=== PATIENT | female | born 1955 | race Caucasian/White ===

== ENCOUNTER 2023-07-19 13:38 | Outpatient (OUT) | payer OTHER, MEDICAID, SELFPAY ==
--- NOTE | 2023-07-19 13:51 | XR_ITS ---
The [address] [address] Patient Name: FAYE ROSE MRN: [id number] date: 1955 Sex: F Assigned Patient Location: [facility] Current Patient Location: [facility] Accession/Order Number: [id number] Exam Date: 07/19/2023 13:53 Report Date: 07/19/2023 17:23 At the request of: MIKE GUILLEN Procedure: XR chest 2V EXAM: XR chest 2V HISTORY: Cough and wheezing. COMPARISON: Portable chest radiograph dated 11/06/2021. TECHNIQUE: PA and lateral views of the chest performed. FINDINGS: The trachea is midline. The heart size is normal. There is mild atheromatous calcification at the aortic arch. The hilar shadows are stable and unremarkable. The lung volumes are normal. The lung solis are clear. There is no pneumothorax. There are small endplate spurs and paravertebral ossifications at a few levels along the mid thoracic spine. There is a suture anchor within the left humeral head. XR/XR chest 2V IMPRESSION: There is no acute cardiopulmonary process. Electronically authenticated by: MG ENGEL Date: 07/19/2023 17:23
== END 2023-07-19 13:39 | disposition home or self-care (01) ==
LOC: RAD 13:43
PROVIDERS: PCP Family Medicine; Visit Provider Nurse Practitioner
DX: R05.9 Cough, unspecified (principal); R06.2 Wheezing
CPT/HCPCS: 71046

== ENCOUNTER 2023-09-25 13:30 | Outpatient (OUT) | payer OTHER, MEDICAID, SELFPAY ==
--- NOTE | 2023-09-25 13:36 | MM_ITS ---
Patient Name: FAYE ROSE MR#: [id number] : 1955 Exam Date: 09/25/2023 Ordering Doctor: MIKE GUILLEN . RADIOLOGY REPORT PROCEDURE: MM TOMOSYNTHESIS SCREENING BI COMPARISON: MG MAMM SCREEN KATE W CAD, 09/25/2020. MG MAMM SCREEN 3D KATE CAD, 09/13/2022. INDICATIONS: screening Calculator Name NCI Breast Cancer Risk Assessment Tool 5 Year Breast Cancer Risk 0.80% Lifetime Breast Cancer Risk 3.00% Personal Breast Cancer No Personal Ovarian Cancer No Treatments None Family Cancers Mother with bladder cancer at age 57; Father with liver cancer at age 77. LOCATION: [facility] BREAST COMPOSITION: Scattered areas fibroglandular density. FINDINGS: DIAGNOSTIC CATEGORY 2--BENIGN FINDING. NO CHANGE FROM COMPARISON. Scattered benign-appearing nodules are present. Scattered benign-appearing calcifications are present. Scattered benign-appearing lymph nodes are present. RIGHT BREAST: No significant suspicious finding. LEFT BREAST: No significant suspicious finding. RECOMMENDATIONS: ROUTINE MAMMOGRAM AND CLINICAL EVALUATION IN 12 MONTHS. PLEASE NOTE: A NORMAL MAMMOGRAM DOES NOT EXCLUDE THE POSSIBILITY OF BREAST CANCER. A CLINICALLY SUSPICIOUS PALPABLE LUMP SHOULD BE BIOPSIED. Dictated by: Hill Campoverde MD on 09/25/2023 at 14:31 Approved by: Hill Campoverde MD on 09/25/2023 at 14:32
--- NOTE | 2023-09-25 13:36 | XR_ITS ---
[address] [address] Patient Name: FAYE ROSE MRN: [id number] date: 1955 Sex: F Assigned Patient Location: [facility] Current Patient Location: [facility] Accession/Order Number: [id number] Exam Date: 09/25/2023 14:00 Report Date: 09/25/2023 16:50 At the request of: MIKE GUILLEN Procedure: XR DEXA axial skeleton EXAM: XR DEXA axial skeleton HISTORY: age-related osteoporosis without current pathological fx COMPARISON: None. TECHNIQUE: Routine DEXA scan lumbar spine and bilateral hips. FINDINGS: L2-L4: BMD 1.244 g/sq cm and T score 0.4. Left femoral neck: BMD 0.833 g/sq cm and T score -1.5. Left hip total: BMD 0.848 g/sq cm and T score -1.3. Right femoral neck: BMD 0.808 g/sq cm and T score -1.7. Right hip total: BMD 0.833 g/sq cm and T score -1.4. XR/XR DEXA axial skeleton IMPRESSION: Osteopenia. Electronically authenticated by: MG ENGEL Date: 09/25/2023 16:50
--- OUTSIDE RECORDS SUMMARY | 2023-09-25 13:50 | XMS_ITS | CCD ---
Author Name Unknown Address [address] [place] [address] Organization [facility] Care Team Providers Care Regional Service Manager Name Role Phone MD Aleksander Jimenez Primary Care Provider MD Balwinder Hankins Attending Provider Aleksander Jimenez Primary Care Unavailable Balwinder Hankins Attending Unavailable Balwinder Hankins Admitting Unavailable Tony, Aleksander Johnson Primary Care Unavailable Balwinder Hankins Attending Unavailable Balwinder Hankins Admitting Unavailable EVELYN, DR MADISON Ghotra Consulting Unavailabl e REINECK, DR MADISON Ghotra Admitting Unavailabl e JIMENEZ ., DR ALEKSANDER Johnson Primary Care Unavailable EVELYN, DR MADISON Ghotra Attending UnavailMARGE Garner Consulting Unavailable JIMENEZ ., DR ALEKSANDER Johnson Primary Care Unavailable JIMENEZ ., DR ALEKSANDER Johnson Admitting Unavailable JIMENEZ ., DR ALEKSANDER Johnson Attending Unavailable JIMENEZ ., DR ALEKSANDER Johnson Consulting Unavailable JIMENEZ ., DR ALEKSANDER Johnson Primary Care Unavailable JIMENEZ ., DR ALEKSANDER Johnson Admitting Unavailable JIMENEZ ., DR ALEKSANDER Johnson Attending Unavailable JIMENEZ ., DR ALEKSANDER Johnson Consulting Unavailable ZIEBER, DR MIRIAM Clark Consulting Unavailable JIMENEZ ., DR ALEKSANDER Johnson Primary Care Unavailable JIMENEZ ., DR ALEKSANDER Johnson Admitting Unavailable JIMENEZ ., DR ALEKSANDER Johnson Attending Unavailable JIMENEZ ., DR ALEKSANDER Johnson Consulting Unavailable JIMENEZ ., DR ALEKSANDER Johnson Admitting Unavailable JIMENEZ ., DR ALEKSANDER Johnson Attending Unavailable JIMENEZ ., DR ALEKSANDER Johnson Consulting Unavailable JIMENEZ ., DR ALEKSANDER Johnson Primary Care Unavailable MISC, DR SHOEMAKER Consulting Unavailable MISC, DR SHOEMAKER Admitting Unavailable MISC, DR SHOEMAKER Attending Unavailable JIMENEZ ., DR ALEKSANDER Johnson Primary Care Unavailable EVELYN, DR MADISON Ghotra Consulting Unavailabl e BARRYECK, DR MADISON Ghotra Admitting Unavailabl e JIMENEZ ., DR ALEKSANDER Johnson Primary Care Unavailable REINECK, DR MADISON Ghotra Attending Unavailyolanda NEAL, DR MIRIAM Clark Consulting Unavailable Tony KAYE, Aleksander Deras Primary Care Provider Az KAYE, Alida Unavailable Julee De Los Santos. Primary Care Physician Az KAYE, Alida Unavailable JOANNA, HARISH Attending Unavailable JOANNA, HARISH Referring Unavailable JIMENEZ, ALEKSANDER EDWARD Primary Care Unavailable JOANNA, HARISH Referring Unavailable JIMENEZ, ALEKSANDER [place] Primary Care Unavailable JOANNA, HARISH Attending Unavailable JIMENEZ, ALEKSANDER [place] Primary Care Unavailable JOANNA, HARISH Referring Unavailable JIMENEZ, ALEKSANDER [place] Primary Care Unavailable JOANNA, HARISH Referring Unavailable JIMENEZ, ALEKSANDER [place] Primary Care Unavailable JOANNA, HARISH Attending Unavailable JIMENEZ, ALEKSANDER [place] Primary Care Unavailable JOANNA, HARISH Referring Unavailable JULEE DE LOS SANTOS Primary Care Unavailable JOANNA, HARISH Attending Unavailable JIMENEZ, ALEKSANDER [place] Primary Care Unavailable JOANNA, HARISH Referring Unavailable JIMENEZ, ALEKSANDER [place] Primary Care Unavailable JOANNA, HARISH Referring Unavailable JIMENEZ, ALEKSANDER OVIDIO Primary Care Unavailable Silvia Cuevas Attending Unavailable Silvia Cuevas Attending Unavailable JEANINE VAZQUEZ Attending Unavailable Julee De Los Santos Attending Unavailable Julee De [place] Attending Unavailable Julee De Los [place] Attending Unavailable Julee De Los Santos Attending Unavailable Silvia Cuevas Attending Unavailable Silvia Cuevas Admitting Unavailable Silvia Cuevas Attending Unavailable Julee De [place] Admitting Unavailable Julee De Los Santos Attending Unavailable Julee De Los Santos Admitting Unavailable Julee De Los Santos Attending Unavailable Julee De Los Santos Attending Unavailable Allergies Allergy Classification Reported Allergen(s) Allergy Type Date of Onset Reaction(s) Facility (13 sources) Cefuroxime; Translations: [cefuroxime] Drug Allergy 2 Hives, Unknown (qualifier value) [facility] (1 source) Cefuroxime Drug Allergy 2 [facility] Medications Current Medications Medication Drug Class(es) Dates Sig (Normalized) Sig (Original) 0.25 MG, 0.5 MG Dose 3 ML semaglutide 0.68 MG/ML Pen Injector (1 source) Start: 09-15-2023 semaglutide 2 mg/3 mL (0.25 mg or 0.5 mg dose) subcutaneous solution 0.25 mg, SubCutaneous, qWeek, increase to 0.5 mg after 4 weeks, # 4 EA, Refills(s) 6, Pharmacy: [id number], 169, cm, 09/15/23 10:48:00 EST, Height/Length Dosing, 77, kg, 09/15/23 10:48:00 EST, Weight Dosing Start Date: 09/15/23 Status: Ordered acetaminophen 650 mg oral tablet (1 source) Start: 07-11-2023 take 650 mg by mouth every eight hours as needed for pain Tylenol 650 mg, Oral, q8hr, PRN as needed for pain, Refills(s) 0 Start Date: 07/11/23 Status: Ordered Albuterol (Eqv-ProAir HFA) 90 mcg/inh inhalation aerosol (1 source) Start: 07-19-2023 take 2 puff(s) by inhalation every six hours Albuterol (Eqv-ProAir HFA) 90 mcg/inh inhalation aerosol 2 puff(s), Inhalation, q6hr, 8.5 gm, Refill(s) 0, [id number], 169, cm, 07/19/23 13:15:00 EST, Height/Length Dosing, 75.1, kg, 07/19/23 13:15:00 EST, Weight Dosing Start Date: 07/19/23 Status: Ordered atorvastatin 20 mg oral tablet (10 sources) HMG-CoA Reductase Inhibitor Start: 08-02-2023 take 1 tablet by mouth once daily atorvastatin 20 mg Tab See Instructions, TAKE 1 TABLET BY MOUTH ONCE DAILY, # 90 tab(s), Refills(s) 0, Pharmacy: [id number], 169, cm, 07/19/23 13:15:00 EST, Height/Length Dosing, 75.1, kg, 07/19/23 13:15:00 EST, Weight Dosing Start Date: 08/02/23 Status: Ordered Start: 11-08-2022 take 1 tablet by romi th at bedtime atorvastatin (LIPITOR) 20 mg tablet 1 PO at bedtime 0 11/08/2022 Active Start: 11-23-2018 take 20 mg by mouth once daily at bedtime Atorvastatin Active 20 MG PO Daily at bedtime November 22, 2018 11:00pm Comment on above: 1 PO at bedtime baclofen 10 mg oral tablet (3 sources) gamma-Aminobutyric Acid-ergic Agonist Start: 05-02-2018 End: 11-09-2022 take 10 mg by mouth once daily Baclofen Active 10 MG PO Daily November 22, 2018 11:00pm Comment on above: Take 10 mg by mouth daily at bedtime. folic acid 2 mg oral capsule (13 sources) Start: 09-11-2023 take 2 mg by mouth once daily folic acid 2 mg, Oral, Daily, Refills(s) 0 Start Date: 09/11/23 Status: Ordered Start: 02-08-2023 End: 05-10-2023 take 2 tablets by mouth once daily folic acid 1 mg tablet Take 2 tablets by mouth once daily. 60 tablet 3 05/10/2023 Active Start: 11-09-2022 End: 02-08-2023 take 1 tablet by mouth once daily folic acid 1 mg Tab 1 mg = 1 tab(s), Oral, Daily, Refills(s) 0 Start Date: 01/09/23 Status: Ordered Start: 11-23-2018 take 1 mg by mouth o nce daily in the morning Folic Acid Active 1 MG PO Every morning November 22, 2018 11:00pm End: 11-09-2022 FOLIC ACID ORAL Take by mout h once daily. 0 11/09/2022 Discontinued Comment on above: Take 1 tablet by romi th once daily. Take by mouth once d aily. Take 2 tablets by mo uth once daily. glipiZIDE 5 mg oral tablet (3 sources) Sulfonylurea Start: 11-23-2018 Glipizide Active 2.5 MG PO As Directed November 22, 2018 11:00pm Start: 04-26-2018 End: 11-09-2022 take 1 tablet by mouth once daily in the morning glipiZIDE (GLUCOTROL) 5 mg tablet Take 5 mg by mouth every morning. 5 04/26/2018 11/09/2022 Discontinued (Course of therapy completed) Comment on above: Take 5 mg by mouth e very morning. Handicap placard (1 source) Start: 12-04-20 23 Handicap placard Handicap placard, See Instructions, 1 EA, 0, Duration 5 years, Supply Start Date: 06/26/23 Status: Ordered levoFLOXacin 500 mg oral tablet (1 source) Quinolone Antimicrobial Start: 09-11-19 End: 09-21-19 take 1 tablet by mouth every twenty-four hours levofloxacin 500 mg Tab 500 mg = 1 tab(s), Oral, q24hr, X 10 day(s), # 10 tab(s), Refills(s) 0, Pharmacy: [id number], 169, cm, 09/11/23 11:22:00 EST, Height/Length Dosing, 75.9, kg, 09/11/23 11:20:00 EST, Weight Dosing Start Date: 09/11/23 Stop Date: 09/21/23 Status: Ordered metFORMIN hydrochloride 850 mg oral tablet (10 sources) Biguanide Start: 04-25-20 take 1 tablet by mouth twice daily metformin 850 mg Tab See Instructions, TAKE 1 TABLET BY MOUTH TWICE DAILY, # 180 tab(s), Refills(s) 0, Pharmacy: [id number], 170.2, cm, 04/10/23 13:28:00 EDT, Height/Length Dosing, 77.2, kg, 04/10/23 13:28:00 EDT, Weight Dosing Start Date: 04/25/23 Status: Ordered Start: 12-07-2022 take 1 tablet by romi th twice daily metformin 850 mg Tab 850 mg = 1 tab(s), Oral, BID, # 180 tab(s), Refills(s) 0, Pharmacy: [id number] Start Date: 12/07/22 Status: Ordered Start: 11-23-2018 take 850 mg by mouth twice hamzah ly Metformin Active 850 MG PO Twice daily November 22, 2018 11:00pm Start: 04-26-2018 take 1 tablet by romi th once daily at breakfast metFORMIN (GLUCOPHAGE) 850 mg tablet TAKE 1 TABLET BY MOUTH DAILY WITH BREAKFAST & supper 11 04/26/2018 Active Comment on above: TAKE 1 TABLET BY ROMI TH DAILY WITH BREAKFAST & supper methotrexate 2.5 mg oral tablet (13 sources) Folate Analog Metabolic Inhibitor Start: 01-09-2023 methotrexate 2.5 mg Tab 20 mg = 8 tab(s), Oral, q7day, # 4 tab(s), Refills(s) 0 Start Date: 01/09/23 Status: Ordered Start: 11-09-2022 End: 05-10-2023 take 8 tablets by mouth every week methotrexate 2.5 mg tablet Take 8 tablets by mouth one time a week. 32 tablet 3 05/10/2023 Active Start: 06-24-2022 take 16 mg by mouth every week Methotrexate Sodium Active 16 MG PO every week June 24, 2022 12:00am End: 11-09-2022 take 1 tablet by mouth once methotrexate 2.5 mg tablet Take 2.5 mg by mouth one time only. Pt takes 6 tablets by mouth every Monday 0 11/09/2022 Discontinued Comment on above: Take 8 tablets by mo uth one time a week. Take 2.5 mg by mouth one time only. Pt takes 6 tablets by mouth every Monday predniSONE 5 mg oral tablet (10 sources) Start: 07-11-2023 take 5 mg by mouth once daily as needed for pain predniSONE 5 mg, Oral, Daily, PRN Breakthrough Pain, Refills(s) 0 Start Date: 07/11/23 Status: Ordered Start: 06-24-2022 End: 11-09-2022 predniSONE (DELTASONE) 5 mg tablet Take 1 tablet by mouth as needed. Take 1 tablet by mouth daily as needed 30 tablet 3 11/09/2022 Active Comment on above: Take 1 tablet by romi as needed. Take 1 tablet by mouth daily as needed Prednisone Active 5 MG PO As Directed June 24, 2022 12:00am sertraline 50 mg oral tablet (3 sources) Serotonin Reuptake Inhibitor Start: 04-26-2018 End: 11-09-2022 take 50 mg by mouth once daily in the morning Sertraline Active 50 MG PO Every morning November 22, 2018 11:00pm Comment on above: Take 50 mg by mouth once daily. Completed/Discontinued Medications Medication Drug Class(es) Dates Sig (Normalized) Sig (Original) aspirin 81 mg chewable tablet (1 source) Platelet Aggregation Inhibitor, Nonsteroidal Anti-inflammatory Drug Start: 07-27-2010 End: 11-09-2022 take 1 tablet by mouth once daily aspirin 81 mg ORAL chewable tablet take one tablet daily 0 07/27/2010 11/09/2022 Discontinued (Course of therapy completed) Comment on above: take one tablet rodrigue y cholecalciferol 0.05 mg oral capsule (1 source) Vitamin D End: 11-09-2022 Cholecalciferol, Vitamin D3, 50 mcg (2,000 unit) cap Take by mouth once daily. 0 11/09/2022 Discontinued (Course of therapy completed) Comment on above: Take by mouth once d aily. dicyclomine hydrochloride 20 mg oral tablet (2 sources) Anticholinergic Start: 11-23-2018 End: 06-24-2022 take 20 mg by mouth four times daily Dicyclomine Discontinued 20 MG PO Four times daily November 22, 2018 11:00pm June 24, 2022 11:10am DULoxetine 20 mg delayed release oral capsule (3 sources) Serotonin and Norepinephrine Reuptake Inhibitor Start: 05-02-2018 End: 11-09-2022 Duloxetine Discontinued November 22, 2018 11:00pm June 24, 2022 11:10am Comment on above: Take 20 mg by mouth every morning. naproxen 500 mg oral tablet (1 source) Nonsteroidal Anti-inflammatory Drug Start: 05-10-2018 End: 11-09-2022 take 1 tablet by mouth every twelve hours as needed naproxen (NAPROSYN) 500 mg tablet Take 1 tablet by mouth twice daily as needed (for pain). for pain. Take with food. 60 tablet 1 05/10/2018 11/09/2022 Discontinued (Course of therapy completed) Comment on above: Take 1 tablet by romi th twice daily as needed (for pain). for pain. Take with food. ondansetron 4 mg disintegrating oral tablet (2 sources) Serotonin-3 Receptor Antagonist Start: 11-23-2018 End: 06-24-2022 take 4 mg by mouth every six hours Ondansetron Discontinued 4 MG PO Q6H 7 November 22, 2018 11:00pm June 24, 2022 11:13am PARoxetine hydrochloride 10 mg oral tablet (1 source) Serotonin Reuptake Inhibitor Start: 07-27-2010 End: 11-09-2022 PARoxetine (PAXIL) 10 mg tablet Take one(1) tablet daily. 90 Tab 0 07/27/2010 11/09/2022 Discontinued (Course of therapy completed) Comment on above: Take one(1) tablet d aily. 0.25 mg, 0.5 mg dose 1.5 ml semaglutide 1.34 mg/ml pen injector (9 sources) Start: 09-29-2022 OZEMPIC 0.25 mg or 0.5 mg(2 mg/1.5 mL) pen INJECT 0.5 mg SUBCUTANEOUSLY EVERY WEEK 0 09/29/2022 Active Start: 06-24-2022 Semaglutide (O zempic) 0.25 mg or 0.5 mg(2 mg/1.5 mL) pen injector Active 0.5 MG SUBCUT every week June 24, 2022 12:00am Comment on above: INJECT 0.5 mg SUBCUT ANEOUSLY EVERY WEEK Problems Active Problems Problem Classification Problem Date Documented Date Episodic/Chronic Abdominal pain (2 sources) Abdominal pain; Translations: [Unspecified abdominal pain] 11-23-2018 Episodic Anxiety disorders (1 source) Mixed anxiety and depressive disorder 07-11-2023 Chronic Asthma (1 source) Unspecified asthma, uncomplicated; Translations: [UNSPECIFIED ASTHMA UNCOMPLICATED] Onset: 11-29-2021 Chronic Blindness and vision defects (4 sources) Blind right eye, normal vision left eye; Translations: [Visual impairment] Onset: 01-09-2023 01-09-2023 Chronic 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 Cataract (1 source) Unspecified cataract; Translations: [Unspecified cataract] Onset: 07-07-2022 Chronic Diabetes mellitus with complications (8 sources) Type 2 diabetes mellitus with diabetic polyneuropathy; Translations: [Type 2 diabetes mellitus with hyperglycemia] Onset: 12-28-2021 Chronic Diabetes mellitus without complication (8 sources) Type 2 diabetes mellitus without complications; Translations: [Type 2 diabetes mellitus without complication] Onset: 11-29-2021 Chronic Disorders of lipid metabolism (9 sources) Pure hypercholesterolemia, unspecified; Translations: [Hyperlipidemia] Onset: 07-27-2010 07-27-2010 Chronic Headache; including migraine (2 sources) Migraine 12-02-2022 Chronic Nausea and vomiting (2 sources) Nausea and vomiting; Translations: [Nausea with vomiting, unspecified] 11-23-2018 Episodic Nutritional deficiencies (2 sources) Vitamin D deficiency 12-02-2022 Chronic Osteoarthritis (6 sources) Arthritis; Translations: [Unspecified osteoarthritis, unspecified site] Onset: 07-27-2010 07-27-2010 Chronic Osteoporosis (2 sources) Osteoporosis 12-02-2022 Chronic Other aftercare (2 sources) Patient encounter status; Translations: [Other superintendent [employer] (current) drug therapy] 02-08-2023 Episodic Other and unspecified benign neoplasm (2 sources) Polyp of colon; Translations: [Polyp of colon] 01-09-2023 Episodic Other connective tissue disease (2 sources) Fibromyalgia 12-02-2022 Episodic Other lower respiratory disease (1 source) Cough 07-19-2023 Episodic Other lower respiratory disease (1 source) Wheezing 07-11-2023 Episodic Other nervous system disorders (2 sources) Carpal tunnel syndrome 12-02-2022 Chronic Other non-traumatic joint disorders (2 sources) Disorder of shoulder 12-02-2022 Episodic Other nutritional; endocrine; and metabolic disorders (1 source) Obesity, unspecified; Translations: [OBESITY UNSPECIFIED] Onset: 10-01-2022 Chronic Other screening for suspected conditions (not mental disorders or infectious disease) (4 sources) Encounter for screening mammogram for malignant neoplasm of breast; Translations: [ENC SCR MAMMO MALIG NEOPLASM BREAST] Onset: 09-13-2022 Episodic Other upper respiratory disease (1 source) Nasal congestion 07-19-2023 Episodic Other upper respiratory infections (1 source) Sinusitis 07-11-2023 Chronic Residual codes; unclassified (1 source) Family history of malignant neoplasm of bladder; Translations: [FAM HX MALIGNANT NEOPLASM BLADDER] Onset: 09-17-2022 Episodic Residual codes; unclassified (1 source) Family history of malignant neoplasm of other organs or systems; Translations: [FAM HX MALIG NEOPLASM OTH ORGN/SYS] Onset: 09-17-2022 Episodic Retinal detachments; defects; vascular occlusion; and retinopathy (8 sources) Degenerative disorder of macula ; Translations: [Unspecified macular degeneration] Onset: 07-27-2010 07-27-2010 Chronic Rheumatoid arthritis and related disease (17 sources) Rheumatoid arthritis, unspecified; Translations: [Rheumatoid arthritis with rheumatoid factor of multiple sites without organ or systems involvement] Onset: 05-29-2018 Chronic Spondylosis; intervertebral disc disorders; other back problems (5 sources) Degenerative lumbar spinal stenosis; Translations: [Thoracic back pain] Onset: 05-10-2023 12-02-2022 Episodic Unclassified (1 source) History of surgical procedure on mouth 04-10-2023 Unclassified (1 source) Patient encounter status 09-15-2023 Past or Other Problems Problem Classification Problem Date Documented Date Episodic/Chronic Allergic reactions (1 source) Generalized skin eruption due to drugs and medicaments taken internally; Translations: [GEN SKN ERUPT D/T RX TAKE INTERNALY] Onset: 11-29-2021 Episodic Chronic obstructive pulmonary disease and bronchiectasis (6 sources) Bronchitis; Translations: [Bronchitis, not specified as acute or chronic] Onset: 07-27-2010 07-27-2010 Episodic E Codes: Adverse effects of medical drugs (1 source) Adverse effect of cephalosporins and other beta-lactam antibiotics, initial encounter; Translations: [ADVERS EFF CEPHALOSPOR OTH JOSE CRUZ INIT] Onset: 11-29-2021 Episodic Nonspecific chest pain (4 sources) Chest pain, unspecified; Translations: [Other chest pain] Onset: 11-06-2021 Episodic Other aftercare (2 sources) Other detention (current) drug therapy; Translations: [OTH [facility] CURRENT DRUG THERAPY] Onset: 02-22-2022 Episodic Other aftercare (1 source) terminal carman (current) use of oral hypoglycemic drugs; Translations: [[facility] USE ORAL HYPOGLYCEMIC DX] Onset: 11-29-2021 Episodic Other circulatory disease (1 source) Personal history of transient ischemic attack (TIA), and cerebral infarction without residual deficits; Translations: [PERS HX TIA AND CI NO RESID DEFICIT] Onset: 11-29-2021 Episodic Other lower respiratory disease (1 source) Personal history of pneumonia (recurrent); Translations: [PERSONAL HX OF PNEUMONIA RECURRENT] Onset: 11-29-2021 Episodic Other skin disorders (3 sources) Rash and other nonspecific skin eruption; Translations: [RASH OTH NONSPECIFIC SKIN ERUPTION] Onset: 11-02-2021 Episodic Residual codes; unclassified (6 sources) Tobacco user; Translations: [Tobacco use] Onset: 07-27-2010 07-27-2010 Episodic Urinary tract infections (6 sources) Urinary tract infectious disease; Translations: [Urinary tract infection, site not specified] Onset: 07-27-2010 07-27-2010 Episodic Results Test Name Value Interpretation Reference Range Facil ity Family Medicine Office/Clini c Noteon 09-19-2023 Family Medicine Office/Clinic Note Chief Complaint Subsequent [facility] Visit Review of Systems PHQ Score Initial Depression Screen Score: 0 SCORE Physical Exam Vitals & Measurements HR: 80(Peripheral) BP: 132/80 SpO2: 96% HT: 169 cm HT: 67 in WT: 77 kg WT: 169.4 lb BMI: 26.96 Assessment/Plan 1. Annual visit for general adult medical examination without abnormal findings (Z00.00: Encounter for general adult medical examination without abnormal findings) The patient was given a customized and personalized print out of all the current AHRQ USPSTF?s recommendations for preventative services and all current CDC recommended immunizations, relevant risk recommendations and the following patient brochures were given. Reviewed Medicare preventative services checklist. CDC-Falls Prevention and home safety screening reviewed. Patient denies any falls in last 12 months, voices no worry about falling, exhibits no problems with sitting, standing, or ambulation. Pt voices understanding with keeping walk way area free of clutter to prevent tripping and/or falling. [place] Advance Directives reviewed, on file at paleologist office. Patient denies any problems with ADL?s and Instrumental ADL?s. Cognitive screening completed with memory and clock face drawing. Immunization Record reviewed with the patient. COVID vaccines have been administered, immunization record is up to date. Allergies and medications reviewed and up to date. Patient denies concerns with taking medication as prescribed, reviewed OTC medications with patient, medication list up to date. Blood tests were reviewed: Discussed what tests need to be updated. Labs were ordered, will have completed prior to next PCP visit. Will have labs completed with [facility]. Colonoscopy last completed in 2020 per patient. DEXA scan ordered and faxed to [facility]. Mammogram is due and order at [facility], patient to schedule with [facility]. Reviewed pain symptoms with patient: patient denies pain symptoms Reviewed all outside providers that patient follows. Last visit summary notes available in chart and/or have been requested. Follow up scheduled, follow up after a1c in September 2023 AWV has been scheduled, TBD 2. Other problems related to lifestyle (Z72.89: Other problems related to lifestyle) Information provided and discussed with CDC recommendation that everyone born from 6292[birth year]174 get tested for Hepatitis C. This is also referred to as baby boomers and are 5 times more likely to be at risk. Transmission of Hepatitis C was at its highest. Medicare does cover a once in a lifetime testing if a patient is non-symptomatic. Blood work has been ordered, will review results with PCP. Patient to complete in September with A1c. 3. Anxiety and depression (F41.9: Anxiety disorder, unspecified) Patient is not prescribed medication. Follows up with PCP with medication management and symptom control. PHQ-9 risk assessment completed with negative findings. Total risk score 0. Patient denies any suicidal ideations at this time. Reviewed additional signs/symptoms to monitor for and report to provider. ARMANI-7 completed with negative findings. Risk score of 0. Following up with PCP as directed with symptom and medication management. Reviewed concerns that needs to be discussed during office visits such as: changes with worrying too much and it is interfering with your work, relationships and/or other parts of your life. Your fear, worry or anxiety is upsetting to you and difficult to control. If additional trouble with depression is noticeable contact your provider. Patient does voice understanding. 4. Type 2 diabetes mellitus (E11.9: Type 2 diabetes mellitus without complications) Patient is compliant on current DM medications: Metformin. DM stoplight handout reviewed with s/s to monitor for and report to PCP. Discussed ADA dietary recommendations with low carbs and reduce sugar intake. Patient encouraged to increase daily physical activity, adequate water intake and maintain a healthy weight. Pt follows up with PCP with yearly DM foot checks, last completed 09/15/2023. Reminded patient to perform at home foot checks to prevent future complications, wash with soap and water, apply lotion to bilateral feet and in-between toes to prevent dryness and/or cracking. Wear proper fitting shoes and loose fitting socks and/or hose. Follows up with yearly DM eye exams, last visit notes available in chart for review. A1c 6.1 on last labs. 5. Hypercholesterolemia (E78.00: Pure hypercholesterolemia, unspecified) Reviewed healthy lifestyle with low fat diet and exercise regimen. When you are overweight our body produces more lipids. Risk also increases with family history of hyperlipidemia and with monitoring alcohol use and avoid smoking. Patient voices understanding with importance of monitoring dietary intake to reduce risk factors associated with CVA. Taking atorvastatin medication daily as directed. Will continue to follow up with office visits with updated labs as directed. Chol. 199, Tri (more content not included)... Normal [facility] Comment on above: Result Comment: Elec tronically Signed By: Silvia Diaz\.br\Date and Time Signed: 09/19/23 13:00 EST\.br\Electronically Co-Signed By: Dennis Grant.br\Date and Time Co-Signed: 09/15/23 12:44 EST Ambulatory Visit Summaryon 0 09-15-2023 Ambulatory Visit Summary YAMILE ROSE :1955 Visit Date:09/15/2023 Ambulatory Visit Instructions Your Diagnosis Annual visit for general adult medical examination without abnormal findings Other problems related to lifestyle Anxiety and depression Type 2 diabetes mellitus Hypercholesterolemia Osteoporosis BMI 26.0-26.9,adult Tests Performed BD Bone Density DEXA -- Results Pending -- Please visit your patient portal for your results or contact your primary care physician. Your Care Team Attending Physician - Julee De Los Santos MD. Primary Care Physician - Julee De Los Santos MD. This Is Your Medications List Misc Prescription (Handicap placard) Misc Prescription (Misc DME Prescription) acetaminophen (Tylenol) albuterol (Albuterol (Eqv-ProAir HFA) 90 mcg/inh inhalation aerosol) atorvastatin (atorvastatin 20 mg Tab) folic acid levofloxacin (levofloxacin 500 mg Tab) metformin (metformin 850 mg Tab) methotrexate (methotrexate 2.5 mg Tab) predniSONE semaglutide (semaglutide 2 mg/3 mL (0.25 mg or 0.5 mg dose) subcutaneous solution) Procedures Performed Cardiac catheter, Carpal tunnel release, Cataracts, Colonoscopy, Extn - Extraction of tooth, EMERALD BSO - Total abdominal hysterectomy and bilateral salpingo-oophorectomy. Discharge Vitals Heart Rate (Peripheral) 80 Blood Pressure 132/80 Height 169 cm Height 67 in Weight 77 kg Weight 169.4 lb BMI 26.96 What to do next You Need to Complete the Following HCV Antibody RFX to Quant PCR, Blood, Routine collect, 09/15/23, Order for future visit, Lab Collect, Other problems related to lifestyle, Print Label By Order Location HgbA1c, Blood, Routine collect, 09/15/23, Order for future visit, Lab Collect, Type 2 diabetes mellitus Invalid Interpretation Code BMI 26.0-26.9,adult [facility] Ambulatory Visit Summary YAMILE ROSE Amber :1955 Visit Date:09/15/2023 Ambulatory Visit Instructions Your Diagnosis Annual visit for general adult medical examination without abnormal findings Other problems related to lifestyle Anxiety and depression Type 2 diabetes mellitus Hypercholesterolemia Osteoporosis BMI 26.0-26.9,adult Your Care Team Attending Physician - Julee De Los Santos MD Primary Care Physician - Julee De Los Santos MD This Is Your Medications List Misc Prescription (Handicap placard) Misc Prescription (Misc DME Prescription) acetaminophen (Tylenol) albuterol (Albuterol (Eqv-ProAir HFA) 90 mcg/inh inhalation aerosol) atorvastatin (atorvastatin 20 mg Tab) folic acid levofloxacin (levofloxacin 500 mg Tab) metformin (metformin 850 mg Tab) methotrexate (methotrexate 2.5 mg Tab) predniSONE semaglutide (semaglutide 2 mg/3 mL (0.25 mg or 0.5 mg dose) subcutaneous solution) Procedures Performed Cardiac catheter, Carpal tunnel release, Cataracts, Colonoscopy, Extn - Extraction of tooth, EMERALD BSO - Total abdominal hysterectomy and bilateral salpingo-oophorectomy. Discharge Vitals Heart Rate (Peripheral) 80 Blood Pressure 132/80 Height 169 cm Height 67 in Weight 77 kg Weight 169.4 lb BMI 26.96 What to do next You Need to Complete the Following HCV Antibody RFX to Quant PCR, Blood, Routine collect, 09/15/23, Order for future visit, Lab Collect, Other problems related to lifestyle, Print Label By Order Location HgbA1c, Blood, Routine collect, 09/15/23, Order for future visit, Lab Collect, Type 2 diabetes mellitus Invalid Interpretation Code BMI 26.0-26.9,adult [facility] Ambulatory Visit Summary YAMILE ROSE :1955 Visit Date:09/15/2023 Ambulatory Visit Instructions Your Diagnosis Type 2 diabetes mellitus, Encounter for diabetic foot exam BMI 26.0-26.9,adult Non-smoker Your Care Team Attending Physician - Silvia Diaz Primary Care Physician - Julee De Los Santos MD This Is Your Medications List Misc Prescription (Handicap placard) Misc Prescription (Misc DME Prescription) acetaminophen (Tylenol) albuterol (Albuterol (Eqv-ProAir HFA) 90 mcg/inh inhalation aerosol) atorvastatin (atorvastatin 20 mg Tab) folic acid levofloxacin (levofloxacin 500 mg Tab) metformin (metformin 850 mg Tab) methotrexate (methotrexate 2.5 mg Tab) predniSONE semaglutide (semaglutide 2 mg/3 mL (0.25 mg or 0.5 mg dose) subcutaneous solution) Procedures Performed Cardiac catheter, Carpal tunnel release, Cataracts, Colonoscopy, Extn - Extraction of tooth, EMERALD BSO - Total abdominal hysterectomy and bilateral salpingo-oophorectomy. Discharge Vitals Heart Rate (Peripheral) 80 Respiratory Rate 18 Blood Pressure 132/80 Height 169.0 cm Height 67 in Weight 77 kg Weight 169.4 lb BMI 26.96 What to do next You Need to Complete the Following HCV Antibody RFX to Quant PCR, Blood, Routine collect, 09/15/23, Order for future visit, Lab Collect, Other problems related to lifestyle, Print Label By Order Location HgbA1c, Blood, Routine collect, 09/15/23, Order for future visit, Lab Collect, Type 2 diabetes mellitus Invalid Interpretation Code BMI 26.0-26.9,adult [facility] Family Medicine Office/Clini c Noteon 09-15-2023 Family Medicine Office/Clinic Note HPI Staff Patient presents for Diabetes follow up Patient is here for follow up on Diabetes. How often are you checking your blood sugars? intermittent What are your average readings? _ Do you have any of the following symptoms? Foot Exam: due Eye Exam: Microalbumin: U Microalb: <2.0 (01/09/23 17:07:00) Last A1C: Hgb A1C %: 6.1 % High (07/10/23 13:17:00) pt has been without Ozempic for 2 months and would like to discuss re starting. Also if she could get order for [employer] system. History of Present Illness pt presents today for Diabetes follow up. Review of Systems PHQ Score Initial Depression Screen Score: 0 SCORE ROS - Provider Constitutional: no fever, no chills, no sweats, no fatigue Respiratory: no shortness of breath, no cough, no orthopnea, no wheezing. Cardiovascular: no chest pain, no palpitations, no edema. Neurologic: no headache, no dizziness, no numbness, no weakness. Physical Exam Vitals & Measurements HR: 80(Peripheral) RR: 18 BP: 132/80 SpO2: 96% HT: 67 in HT: 169.0 cm WT: 77 kg WT: 169.4 lb BMI: 26.96 General: alert, no acute distress ENMT: oral mucosa moist, no pharyngeal erythema or exudate Cardiovascular: regular rate and rhythm, normal peripheral perfusion Respiratory: Lungs CTA, respirations non labored Extremities: no deformity, no trauma Neurological: oriented x 4, LOC appropriate for age, CN II-XII intact, motor strength equal & normal bilaterally, speech normal diabetic foot exam: normal on right except heel of foot has callous and no feeling, left mid foot and heel (callous) no feeling remainder is WNL no redness, swelling or sores noted on feet Assessment/Plan 1. Type 2 diabetes mellitus, (E11.9: Type 2 diabetes mellitus without complications)Encounte r for diabetic foot exam pt presents today for diabetes follow up. will come back for HGBA1C in september. foot exam performed today. she is also having MWV with Dennis today. will order Dexa scan for her today as well. will re order ozempic. pt has not been taking it for about 2 months now. will start at 0.25mg for first 4 weeks then move to 0.5mg. RTC 3 months. will come back in September for repeat HGAB1C Ordered: escitalopram, 5 mg = 1 tab(s), Oral, Daily, # 30 tab(s), Refills(s) 2, Pharmacy: [id number], 169, cm, 07/11/23 14:36:00 EST, Height/Length Dosing, 75.6, kg, 07/11/23 14:36:00 EST, Weight Dosing E&M of Est. Patient Low 20-29 Min 48546 HgbA1c Medicare Subsequent Visit G0439 3. BMI 26.0-26.9,adult (Z68.26: Body mass index [BMI] 26.0-26.9, adult) BMI education complete Ordered: escitalopram, 5 mg = 1 tab(s), Oral, Daily, # 30 tab(s), Refills(s) 2, Pharmacy: [facility], 169, cm, 07/11/23 14:36:00 EST, Height/Length Dosing, 75.6, kg, 07/11/23 14:36:00 EST, Weight Dosing E&M of Est. Patient Low 20-29 Min 80848 HgbA1c Medicare Subsequent Visit G0439 4. Non-smoker (Z78.9: Other specified health status) continue not smoking Ordered: E&M of Est. Patient Low 20-29 Min 47240 HgbA1c Orders: semaglutide, 0.25 mg, SubCutaneous, qWeek, increase to 0.5 mg after 4 weeks, # 4 EA, Refills(s) 6, Pharmacy: [id number], 169, cm, 09/15/23 10:48:00 EST, Height/Length Dosing, 77, kg, 09/15/23 10:48:00 EST, Weight Dosing semaglutide, 0.5 mg, SubCutaneous, qWeek, # 12 EA, Refills(s) 1, Pharmacy: [id number], 170.2, cm, 04/10/23 13:28:00 EDT, Height/Length Dosing, 77.2, kg, 04/10/23 13:28:00 EDT, Weight Dosing 1 or more DMARD dispensed, prescribed or administered 4187F 1126F Pain severity quantified; no pain present Advance Care Planning discussed and documented 1123F Annual alcohol misuse screening, 15 min G0442 Annual Depression Screening 15 min G0444 BD Bone Density DEXA Body Mass Index (BMI) documented 3008F Current tobacco non-user 1036F Depression Screening Negative 3352F Diabetic Foot Exam 2028F Functional status assessed 1170F HBA1C <7.0 Most Recent Level 3044F HCV Antibody RFX to Quant PCR Influenza immunization administered or previously received 4274F Medication list documented in medical record 1159F Most recent diastolic blood pressure 80-89 mm Hg 3079F Most recent LDL-C 100-129 mg/dL 3049F Negative microalbuminuria test result documented and reviewed 3061F No evidence of retinopathy in the prior year 3072F Patient screen for fall risk: no falls in last year or 1 fall with no injury in last year 1101F Pneumococcus immunization status assessed 1022F Review of all meds by a prescribing practitioner or clinical pharmacist documented in EHR 1160F Systolic BP 130-139 mm Hg (Most Recent) 3075F Follow-up No qualifying data available Problem List/Past Medical History Ongoing Anxiety and depression 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 Normal [facility] Comment on above: Result Comment: Elec tronically Signed By: Silvia Diaz.christopher\Date and Time Signed: 09/15/23 12:54 EST Patient Educationon 09-15-19 Patient Education Caregiving Fall Prevention in the Home, Adult Falls can cause injuries and affect people of all ages. There are many simple things that you can do to make your home safe and to help prevent falls. Ask for help when making these changes, if needed. What actions can I take to prevent falls? General instructions ? Use good lighting in all rooms. Replace any light bulbs that burn out, turn on lights if it is dark, and use night-lights. ? Place frequently used items in [id number] places. Lower the shelves around your home if necessary. ? Set up furniture so that there are clear paths around it. Avoid moving your furniture around. ? Remove throw rugs and other tripping hazards from the floor. ? Avoid walking on wet floors. ? Fix any uneven floor surfaces. ? Add color or contrast paint or tape to grab bars and handrails in your home. Place contrasting color strips on the first and last steps of staircases. ? When you use a stepladder, make sure that it is completely opened and that the sides and supports are firmly locked. Have someone hold the ladder while you are using it. Do not climb a closed stepladder. ? Know where your pets are when moving through your home. What can I do in the bathroom? ? Keep the floor dry. Immediately clean up any water that is on the floor. ? Remove soap buildup in the tub or shower regularly. ? Use nonskid mats or decals on the floor of the tub or shower. ? Attach bath mats securely with double-sided, nonslip rug tape. ? If you need to sit down while you are in the shower, use a plastic, nonslip stool. ? Install grab bars by the toilet and in the tub and shower. Do not use towel bars as grab bars. What can I do in the bedroom? ? Make sure that a bedside light is easy to reach. ? Do not use oversized bedding that reaches the floor. ? Have a firm chair that has side arms to use for getting dressed. What can I do in the kitchen? ? Clean up any spills right away. ? If you need to reach for something above you, use a sturdy step stool that has a grab bar. ? Keep electrical cables out of the way. ? Do not use floor [place] or wax that makes floors slippery. If you must use wax, make sure that it is non-skid floor wax. What can I do with my stairs? ? Do not leave any items on the stairs. ? Make sure that you have a light switch at the top and the bottom of the stairs. Have them installed if you do not have them. ? Make sure that there are handrails on both sides of the stairs. Fix handrails that are broken or loose. Make sure that handrails are as long as the staircases. ? Install non-slip stair treads on all stairs in your home. ? Avoid having throw rugs at the top or bottom of stairs, or secure the rugs with carpet tape to prevent them from moving. ? Choose a carpet design that does not hide the edge of steps on the stairs. ? Check any carpeting to make sure that it is firmly attached to the stairs. Fix any carpet that is loose or worn. What can I do on the outside of my home? ? Use bright outdoor lighting. ? Regularly repair the edges of walkways and driveways and fix any cracks. ? Remove high doorway thresholds. ? Trim any shrubbery on the main path into your home. ? Regularly check that handrails are securely fastened and in good repair. Both sides of all steps should have handrails. ? Install guardrails along the edges of any raised decks or porches. ? Clear walkways of debris and clutter, including tools and rocks. ? Have leaves, snow, and ice cleared regularly. ? Use sand or salt on walkways during winter months. ? In the garage, clean up any spills right away, including grease or oil spills. What other actions can I take? ? Wear closed-toe shoes that fit well and support your feet. Wear shoes that have rubber soles or low heels. ? Use mobility aids as needed, such as canes, walkers, scooters, and crutches. ? Review your medicines with your health care provider. Some medicines can cause dizziness or changes in blood pressure, which increase your risk of falling. Talk with your health care provider about other ways that you can decrease your risk of falls. This may include working with a physical therapist or ehr trainer to improve your strength, balance, and endurance. Where to find more information ? Centers for Disease Control and Prevention, [place]: www.cdc.gov ? [employer] [place] [employer]: www.marie.nih.gov Contact a health care provider if: ? You are afraid of falling at home. ? You feel weak, drowsy, or dizzy at home. ? You fall at home. Summary ? There are many simple things that you can do to make your home safe and to help prevent falls. ? Ways to make your home safe include removing tripping hazards and installing grab bars in the bathroom. ? Ask for help when making these changes in your home. This information is not intended to replace advice given to you by your health ca (more content not included)... Normal [facility] [place]enson 09-15-2023 Screens [id number] 20 [id number]#[id number] 0TIFF [facility] Ambulatory Visit Summaryon 0 09-11-2023 Ambulatory Visit Summary YAMILE ROSE Amber :1955 Visit Date:09/11/2023 Ambulatory Visit Instructions Your Diagnosis Sinusitis Nasal congestion Controlled type 2 diabetes mellitus without complication, without long-term current use of insulin, Type 2 diabetes mellitus Your Care Team Attending Physician - JEANINE VAZQUEZ CNP Primary Care Physician - Julee De Los Santos MD. This Is Your Medications List Misc Prescription (Handicap placard) Misc Prescription (Misc DME Prescription) acetaminophen (Tylenol) albuterol (Albuterol (Eqv-ProAir HFA) 90 mcg/inh inhalation aerosol) atorvastatin (atorvastatin 20 mg Tab) escitalopram (escitalopram 5 mg oral tablet) folic acid folic acid (folic acid 1 mg Tab) metformin (metformin 850 mg Tab) methotrexate (methotrexate 2.5 mg Tab) predniSONE semaglutide (semaglutide 2 mg/3 mL (0.25 mg or 0.5 mg dose) subcutaneous solution) Procedures Performed Cardiac catheter, Carpal tunnel release, Cataracts, Colonoscopy, Extn - Extraction of tooth, EMERALD BSO - Total abdominal hysterectomy and bilateral salpingo-oophorectomy. Discharge Vitals Temperature (Axillary) 36.9 ?C Heart Rate (Peripheral) 60 Blood Pressure 138/70 Height 169 cm Height 67 in Weight 75.9 kg Weight 166.98 lb BMI 26.57 What to do next Scheduled Follow-Up Appointments Monday 10:20 AM EST With: Silvia Diaz Where: [facility] Normal [address] [id number]- \.br\ Medications\.br \ What How Much When Why Instructions\.b r\ Unchanged acetaminophen (Tylenol) 650 Milligram By Mouth Every 8 hours as needed for as needed for pain\.br\ Unchanged albuterol (Albuterol (Eqv-ProAir HFA) 90 mcg/ inh inhalation aerosol) 2 Puffs Inhalation Every 6 hours BMI 26.0-26.9,adult Over weight Nonsmoker\.br\ Unchanged atorvastatin (atorvastatin 20 mg Tab) See instructions TAKE 1 TABLET BY MOUTH ONCE DAILY \.br\ Unchanged escitalopram (escitalopram 5 mg oral tablet) 1 Tablets By Mouth Every day Sinusitis Wheezing Cough Type 2 diabetes mellitus BMI 26.0-26.9,adult Overweight Former smoker Anxiety and depression\.br\ Unchanged folic acid\.br\ Unchanged folic acid (folic acid 1 mg Tab) 1 Tablets By Mouth Every day\.br\ Unchanged metformin (metformin 850 mg Tab) See instructions TAKE 1 TABLET BY MOUTH TWICE DAILY \.br\ Unchanged methotrexate (methotrexate 2.5 mg Tab) 8 Tablets By Mouth Every 7 days\.br\ Unchanged Misc Prescription (Handicap placard) See instructions Duration 5 years \.br\ Unchanged Misc Prescription (Misc DME Prescription) See instructions Disp one Glucometer, #100 test strips and #100 lancets to test blood sugars once a day. Dx E11.8 \.br\ Unchanged predniSONE 5 Milligram By Mouth Every day as needed for Breakthrough Pain\.br\ Unchanged semaglutide (semaglutide 2 mg/ 3 mL (0.25 mg or 0.5 mg dose) subcutaneous solution) 0.5 Milligram Subcutaneous Every week\.br\ Allergies\.br\ cefuroxime (Unknown)\.br\ Problems\.br\ Ongoing - Any problem that you are currently receiving treatment for.\.br\ Anxiety and depression\.br\ Blindness of right eye with normal vision in contralateral eye\.br\ Carpal tunnel syndrome\.br\ Controlled type 2 diabetes mellitus without complication, without long-term current use of insulin\.br\ Cough\.br\ Degenerative lumbar spinal stenosis\.br\ Fibromyalgia\.b r\ Hypercholestero lemia\.br\ Impingement of shoulder\.br\ Loss of vision\.br\ Macular degeneration of right eye\.br\ Migraines\.br\ Nasal congestion\.br\ Osteoporosis\.b r\ Polyp of colon\.br\ Rheumatoid arthritis involving multiple sites with positive rheumatoid factor\.br\ S/P tooth extraction\.br\ Sinusitis\.br\ Type 2 diabetes mellitus\.br\ Vitamin D deficiency\.br\ Wheezing\.br\ Patient Survey\.br\ You may receive a survey via text or e-mail asking about your office visit. Please share your experience with us by completing your survey. We appreciate your feedback and thank you for choosing us for your care.\.br\ \.br\ [facility] Family Medicine Office/Clini c Noteon 09-11-2023 Family Medicine Office/Clinic Note Chief Complaint Congestion & possible sinus infection HPI Staff Patient of Yamila Cuevas NP presents for acute visit. complaints of sinus infection, congestion, watery eyes Onset: Monday Characteristics: watery eyes, nasal congestion, headache OTC tried: cetirizine patient feels it helps some. History of Present Illness 68 year old female patient of Anitra presents today with her daughter for evaluation of sinus infection, congestion & watery eyes which started on Monday. Patient has a history of sinusitis & diabetes. Her last sinus infection was in June 2023. She states she started with the runny nose and watery eyes on Monday and then she has had pressure under her eyes since Monday. She reports she took a Zyrtec yesterday and that helped with the runny nose and watery eyes. She does have a headache today but she took some acetaminophen before she came today and that has helped some too. Review of Systems PHQ Score Initial Depression Screen Score: 0 SCORE Constitutional: no fever, no chills, no sweats, no weakness Skin: no Jaundice, no rash, no lesions, nopetechiae ENMT: no ear pain, no sore throat, moderate congestion, no hoarseness Respiratory: no shortness of breath, no cough, no orthopnea, no wheezing Cardiovascular: no chest pain, no palpitations, no edema Musculoskeletal: no back pain, no trauma Neurologic: no headache, no dizziness, no numbness, no weakness Additional ROS info: Except as noted in the above Review of Systems and in the History of Present Illness all other systems have been reviewed and are negative or noncontributory. Physical Exam Vitals & Measurements T: 36.9 ?C(Axillary) HR: 60(Peripheral) BP: 138/70 SpO2: 97% HT: 67 in HT: 169 cm WT: 75.9 kg WT: 166.98 lb BMI: 26.57 General: alert, no acute distress ENMT: TM's clear, oral mucosa moist, no pharyngeal erythema or exudate, maxillary sinus tenderness with palpation Cardiovascular: regular rate and rhythm, normal peripheral perfusion Respiratory: Lungs CTA, respirations non labored Extremities: no deformity, no trauma Neurological: oriented x 4, LOC appropriate for age speech normal Assessment/Plan 1. Sinusitis (J32.9: Chronic sinusitis, unspecified) Ordered: levofloxacin, 500 mg = 1 tab(s), Oral, q24hr, X 10 day(s), # 10 tab(s), Refills(s) 0, Pharmacy: [facility], 169, cm, 09/11/23 11:22:00 EST, Height/Length Dosing, 75.9, kg, 09/11/23 11:20:00 EST, Weight Dosing Body Mass Index (BMI) documented 3008F Current tobacco non-user 1036F Depression Screening Negative 3352F Influenza Type A&B POC 17591 Medication list documented in medical record 1159F Patient screen for fall risk: no falls in last year or 1 fall with no injury in last year 1101F Rapid COVID POC 77505 2. Nasal congestion (R09.81: Nasal congestion) Negative influenza & COVID rapid tests in the office today Ordered: levofloxacin, 500 mg = 1 tab(s), Oral, q24hr, X 10 day(s), # 10 tab(s), Refills(s) 0, Pharmacy: [facility], 169, cm, 09/11/23 11:22:00 EST, Height/Length Dosing, 75.9, kg, 09/11/23 11:20:00 EST, Weight Dosing Body Mass Index (BMI) documented 3008F Current tobacco non-user 1036F Depression Screening Negative 3352F Influenza Type A&B POC 12437 Medication list documented in medical record 1159F Patient screen for fall risk: no falls in last year or 1 fall with no injury in last year 1101F Rapid COVID POC 00151 3. Controlled type 2 diabetes mellitus without complication, without long-term current use of insulin, (E11.9: Type 2 diabetes mellitus without complications)Type 2 diabetes mellitus Stable Controlled with metFORmin 850 mg one tablet daily & semaglutide 0.5 mg suq weekly Encouraged to f/u with pcp on Monday09/15/2023 as scheduled Ordered: levofloxacin, 500 mg = 1 tab(s), Oral, q24hr, X 10 day(s), # 10 tab(s), Refills(s) 0, Pharmacy: [facility], 169, cm, 09/11/23 11:22:00 EST, Height/Length Dosing, 75.9, kg, 09/11/23 11:20:00 EST, Weight Dosing Body Mass Index (BMI) documented 3008F Current tobacco non-user 1036F Depression Screening Negative 3352F Medication list documented in medical record 1159F Patient screen for fall risk: no falls in last year or 1 fall with no injury in last year 1101F Follow-up No qualifying data available Problem List/Past Medical History Ongoing Anxiety and depression Blindness of right eye with normal vision in contralateral eye Carpal tunnel syndrome Controlled type 2 diabetes mellitus without complication, without long-term current use of insulin Cough Degenerative lumbar spinal stenosis Fibromyalgia Hypercholesterolemia Impingement of shoulder Loss of vision Macular degeneration of right eye Migraines Nasal congestion Osteoporosis Polyp of colon 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 Normal [facility] Comment on above: Result Comment: Elec tronically Signed By: JEANINE VAZQUEZ CNP\bobo\Date and Time Signed: 09/11/23 12:51 EST Outside Diabetes Eye Examon 09-04-2023 Outside Diabetes Eye Exam [id number]#1. 00TIFF Normal [facility] Outside Diabetes Eye Exam [id number]#1.0 0TIFF Normal [facility] Consultation Noteon 08-17-19 Consultation Note [id number]#1.0 0TIFF Normal [facility] ALT SerPl-cCncon 08-16-2023 ALT [Catalytic activity/Vol] 19 U/L Normal 7-38 [facility] Comment on above: Order Comment: Speci men Type: BLOOD SPECIMEN Ordering Facility: [facility] Address: [address] [place] [address] Performed By: #### 2 2322-2, 32882-6, 5195-3 #### [facility] CLIA [id number] [address] [place] [address] [place] AST SerPl-cCncon 08-16-2023 AST [Catalytic activity/Vol] 15 U/L Normal 13-35 [facility] Comment on above: Order Comment: Speci men Type: BLOOD SPECIMEN Ordering Facility: [facility] Address: [address] [place] [address] Performed By: #### 2 2322-2, 74152-9, 5195-3 #### [facility] CLIA [id number] [address] [place] [address] [place] Albumin SerPl-mCncon 024 Albumin [Mass/Vol] 4.2 g/dL Normal 3.9-4.9 [facility] Comment on above: Order Comment: Speci men Type: BLOOD SPECIMEN Ordering Facility: [facility] Address: [address] [phone] Performed By: #### 2 2322-2, 64185-5, 5195-3 #### [facility] CLIA [id number] [address] [place] [address] [place] CBC W Auto Differential pane l (Bld)on 08-16-2023 Basophils (Bld) [#/Vol] 0.08 10*3/uL Normal <0.11 [facility] Comment on above: Order Comment: Speci men Type: BLOOD SPECIMENOrdering Facility: [facility] Address: [address] [place] [address] Performed By: #### 5 7021-8 ####[facility] [id number] [place] [address] [place] Basophils/100 WBC (Bld) 1.2 % Normal [facility] Comment on above: Order Comment: Speci men Type: BLOOD SPECIMENOrdering Facility: [facility] Address: [address] [place] [address] Performed By: #### 5 7021-8 ####[facility] [id number] [place] [address] [place] Differential cell count method Nom (Bld) Auto Normal [facility] Comment on above: Order Comment: Speci men Type: BLOOD SPECIMENOrdering Facility: [facility] Address: [address] [place] [address] Performed By: #### 5 7021-8 ####[facility] [id number] [place] [address] [place] Eosinophils (Bld) [#/Vol] 0.12 10*3/uL Normal <0.46 [facility] Comment on above: Order Comment: Speci men Type: BLOOD SPECIMENOrdering Facility: [facility] Address: [address] [place] [address] Performed By: #### 5 7021-8 ####[facility] [id number] [place] [address] [place] Eosinophils/100 WBC (Bld) 1.7 % Normal [facility] Comment on above: Order Comment: Speci men Type: BLOOD SPECIMENOrdering Facility: [facility] Address: [address] [place] [address] Performed By: #### 5 7021-8 ####[facility] [id number] [place] [address] [place] Erythrocyte distribution width (RBC) [Ratio] 14.2 % Normal 11.5-15.0 [facility] Comment on above: Order Comment: Speci men Type: BLOOD SPECIMENOrdering Facility: [facility] Address: [address] [place] [address] Performed By: #### 5 7021-8 ####[facility] [id number] [place] [address] [place] Hematocrit (Bld) [Volume fraction] 45.1 % Normal 36.0-46.0 [facility] Comment on above: Order Comment: Speci men Type: BLOOD SPECIMENOrdering Facility: [facility] Address: [address] [place] [address] Performed By: #### 5 7021-8 ####[facility] [id number] [place] [address] [place] Hemoglobin (Bld) [Mass/Vol] 15.4 g/dL Normal 11.5-15.5 [facility] Comment on above: Order Comment: Speci men Type: BLOOD SPECIMENOrdering Facility: [facility] Address: [address] [place] [address] Performed By: #### 5 7021-8 ####[facility] [id number] [place] [address] [place] Immature granulocytes (Bld) [#/Vol] 0.03 10*3/uL Normal <0.10 [facility] Comment on above: Order Comment: Speci men Type: BLOOD SPECIMENOrdering Facility: [facility] Address: [address] [place] [address] Performed By: #### 5 7021-8 ####[facility] [id number] [place] [address] [place] Immature granulocytes/100 WBC (Bld) 0.4 % Normal [facility] Comment on above: Order Comment: Speci men Type: BLOOD SPECIMENOrdering Facility: [facility] Address: [address] [place] [address] Performed By: #### 5 7021-8 ####[facility]IA [id number] [place] [address] [place] Lymphocytes (Bld) [#/Vol] 1.91 10*3/uL Normal 1.00-4.00 [facility] Comment on above: Order Comment: Speci men Type: BLOOD SPECIMENOrdering Facility: [facility] Address: [address] [place] [address] Performed By: #### 5 7021-8 ####[facility]IA [id number] [address] [place] Lymphocytes/100 WBC (Bld) 27.8 % Normal [facility] Comment on above: Order Comment: Speci men Type: BLOOD SPECIMENOrdering Facility: [facility] Address: [address] [place] [address] Performed By: #### 5 7021-8 ####[facility]IA [id number] [place] [address] [place] MCH (RBC) [Entitic mass] 32.1 pg Normal 26.0-34.0 [facility] Comment on above: Order Comment: Speci men Type: BLOOD SPECIMENOrdering Facility: [facility] Address: [address] [place] [address] Performed By: #### 5 7021-8 ####[facility]IA [id number] [place] [address] [place] MCHC (RBC) [Mass/Vol] 34.1 g/dL Normal 30.5-36.0 [facility] Comment on above: Order Comment: Speci men Type: BLOOD SPECIMENOrdering Facility: [facility] Address: [address] [place] [address] Performed By: #### 5 7021-8 ####[facility] [id number] [place] [address] [place] MCV (RBC) [Entitic vol] 94.0 fL Normal 80.0-100.0 [facility] Comment on above: Order Comment: Speci men Type: BLOOD SPECIMENOrdering Facility: [facility] Address: [address] [place] [address] Performed By: #### 5 7021-8 ####[facility]IA [id number] [place] [address] [place] Monocytes (Bld) [#/Vol] 0.36 10*3/uL Normal <0.87 [facility] Comment on above: Order Comment: Speci men Type: BLOOD SPECIMENOrdering Facility: [facility] Address: [address] [place] [address] Performed By: #### 5 7021-8 ####[facility]IA [id number] [place] [address] [place] Monocytes/100 WBC (Bld) 5.2 % Normal [facility] Comment on above: Order Comment: Speci men Type: BLOOD SPECIMENOrdering Facility: [facility] Address: [address] [place] [address] Performed By: #### 5 7021-8 ####[facility]IA [id number] [place] [address] [place] Neutrophils (Bld) [#/Vol] 4.36 10*3/uL Normal 1.45-7.50 [facility] Comment on above: Order Comment: Speci men Type: BLOOD SPECIMENOrdering Facility: [facility] Address: [address] [place] [address] Performed By: #### 5 7021-8 ####[facility]CLIA [id number] [place] [address] [place] Neutrophils/100 WBC (Bld) 63.7 % Normal [facility] Comment on above: Order Comment: Speci men Type: BLOOD SPECIMENOrdering Facility: [facility] Address: [address] [place] [address] Performed By: #### 5 7021-8 ####[facility]IA [id number] [place] [address] [place] Nucleated RBC (Bld) [#/Vol] 10*3/uL Normal <0.01 [facility] Comment on above: Order Comment: Speci men Type: BLOOD SPECIMENOrdering Facility: [facility] Address: [address] [place] [address] Performed By: #### 5 7021-8 ####[facility]IA [id number] [place] [address] [place] Nucleated RBC/100 WBC (Bld) [Ratio] 0.0 /100 WBC Normal [facility] Comment on above: Order Comment: Speci men Type: BLOOD SPECIMENOrdering Facility: [facility] Address: [address] [place] [address] Performed By: #### 5 7021-8 ####[facility]IA [id number] [place] [address] [place] Platelet mean volume (Bld) [Entitic vol] 10.1 fL Normal 9.0-12.7 [facility] Comment on above: Order Comment: Speci men Type: BLOOD SPECIMENOrdering Facility: [facility] Address: [address] [place] [address] Performed By: #### 5 7021-8 ####[facility]IA [id number] [place] [address] [place] Platelets (Bld) [#/Vol] 211 10*3/uL Normal 150-400 [facility] Comment on above: Order Comment: Speci men Type: BLOOD SPECIMENOrdering Facility: [facility] Address: [address] [place] [address] Performed By: #### 5 7021-8 ####[facility] [id number] [place] [address] [place] RBC (Bld) [#/Vol] 4.80 10*6/uL Normal 3.90-5.20 [facility] Comment on above: Order Comment: Speci men Type: BLOOD SPECIMENOrdering Facility: [facility] Address: [address] [place] [address] Performed By: #### 5 7021-8 ####[facility] [id number] [place] [address] [place] WBC (Bld) [#/Vol] 6.86 10*3/uL Normal 3.70-11.00 [facility] Comment on above: Order Comment: Speci men Type: BLOOD SPECIMENOrdering Facility: [facility] Address: [address] [place] [address] Performed By: #### 5 7021-8 ####[facility] [id number] [place] [id number] [place] CNOVon 08-16-2023 CNOV Office Visit (ERWIN ) YAMILE [id number]) 1955 F Date Time Provider Department 08/16/23 12:30 PM HARISH MARSHALL During your visit today, we recorded the following information about you: Pulse Blood pressure Weight 68/minute 130/74 75.9 kg Harish Marshall MD 08/16/2023 12:58 PM Signed [facility] Out[facility] Date of Service: 08/16/2023 Patient: Yamile Rose Medical Record: [id number] Primary Care Physician: Aleksander Jimenez MD Referring Provider: SELF Last Rheumatology visit: 05/10/2023 (with Harish Marshall) Chief complaint: Recheck (Left and right shoulder and right knee has been bothering her. Tylenol does help. 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 Tylenol does help. Denies any pain today.). She is currently taking methotrexate sodium, prednisone. Yamile is both RF - 49 (11/09/2022) and CCP - 275 (11/09/2022) positive. HISTORY OF PRESENT ILLNESS History of rheumatoid arthritis She was being followed by local rheumatology in [place], but her daughter wanted her to get a 2nd opinion at [facility]. Seen by Dr. Livingston in 05/2018 Her local rheum added methotrexate which she started after her visit here in 05/2018 She was following with chief operator hydroformer at [place] however her insurance was no more covering the chief operator hydroformer in [place] so she came back to [facility]. Patient reports pain over MCPs, PIPs, wrists, elbows, shoulders, hips, knees, toes- She also reports intermittent MCPs and PIPs swelling She thinks methotrexate has helped decrease the joint swelling however has not completely resolved. She reports she has good days and bad days and winter is worst. She takes prednisone 5 mg to 15 mg once every 3 to 4 days for intermittent flares Pain is worst in am and also if she is more active. EMS- 1 hour Denies history of inflammatory eye disease, inflammatory bowel disease, psoriasis, history of kidney disease/biopsy, nephrolithiasis, peptic ulcer disease, miscarriages, blood clots, malignancy, pleural/pericardial effusion, CHF, CAD, CVA. Seen as new patient by me in 10/2022- she had synovitis in her hands, advised to increase MTX to 20 mg weekly and advised to limit use of prednisone. 01/2023- Patient reports that her joint pain and swelling is better since increasing dose of methotrexate, no synovitis or tenderness on exam today Currently on MTX 20 mg weekly with folic acid 1 mg daily Plan Continue methotrexate 20 mg weekly Increase dose of folic acid to 2 mg daily due to oral ulcers 04/2023-she was doing well on methotrexate, however had worsening of pain and swelling after holding methotrexate for 2-1/2 weeks, has right long PIP synovitis on exam today , resumed MTX 20 mg weekly with folic acid 2 mg daily last Monday Plan Continue methotrexate 20 mg weekly Continue folic acid to 2 mg daily 10/2022 RF 49, CCP 275 04/2018 RF 23 CCP 25 Sed rate/CRP normal TB screening negative Hepatitis B/C negative XR bilateral hands 10/2022- Mild osteoarthritis of the bilateral hands. XR bilateral feet 10/2022- Negative radiographs of the bilateral feet Radiograph bilateral feet 04/2018-Mild pes cavus bilaterally. Small calcaneal enthesophytes bilaterally. No erosions. Radiograph lumbar spine 04/2018-Minimal grade 1 anterolisthesis of L4 on L5. Disc heights are normal. Degenerative facet changes in the lower lumbar spine. INTERVAL HISTORY Today She denies any joint pain today She gets pain over right knee and bilateral shoulders on and off. Right knee pain is mostly with activities, bending. Shoulder pain is with certain position. She takes Tylenol which helps with the pain Denies any joint swelling Denies oral ulcers since increasing dose of folic acid Denies any other new symptoms Patient-Entered Data PAIN EVALUATION No data found in the last 1 encounters. PROMIS Assessments PROMIS Assessments 02/07/2023 05/05/2023 08/15/2023 Physical Health Percentile 7% 10% 22% Mental Health Percentile 9% 9% 19% Pain Score 2 3 3 Pain Interference Percentile 8% 12% 12% Fatigue Percentile 8% 24% 24% Physical Function Percentile 12% 16% 18% RAPID 3 [place] Activities of Daily Living 08/15/2023 8:50 AM 05/05/2023 9:15 AM 02/07/2023 10:24 AM First answer obtained - 11/08/2022 11:32 AM Dress self? With SOME difficulty With SOME difficulty With SOME difficulty With SOME difficulty Get in and out of bed? With SOME difficulty With SOME difficu (more content not included)... Normal [facility] CREATININE BLDon 08-16-2023 Creatinine [Mass/Vol] 0.85 mg/dL Normal 0.58-0.96 [facility] Comment on above: Order Comment: Speci men Type: BLOOD SPECIMEN Ordering Facility: [facility] Address: [address] [place] [address] Performed By: #### 2 2322-2, 84595-3, 5195-3 #### [facility] CLIA [id number] [facility] [place] Creatinine and Glomerular filtration rate.predicted panel (S/P/Bld) 76 mL/min/1.73m??? Normal >=60 [facility] Comment on above: Order Comment: Speci men Type: BLOOD SPECIMEN Ordering Facility: [facility] Address: [address] [address] Result Comment: Rimma mated Glomerular Filtration Rate (eGFR) is calculated using the 2020 CKD-EPI creatinine equation. This equation utilizes serum creatinine, sex, and age as parameters. The creatinine assay has traceable calibration to isotope dilution-mass spectrometry. Refer to KDIGO guidelines for clinical interpretation. In patients with unstable renal function, e.g. those with acute kidney injury, the eGFR may not accurately reflect actual GFR. Performed By: #### 2 2322-2, 97225-9, 5195-3 #### [facility] CLIA [id number] [address] [place] [address] [place] RAD - MISCon 07-20-2023 RAD - MISC [id number] 20 [id number]#1.0 0TIFF Normal [facility] Ambulatory Visit Summaryon 1 09-19-2022 Ambulatory Visit Summary YAMILE ROSE :1955 Visit Date:07/19/2023 Ambulatory Visit Instructions Your Diagnosis BMI 26.0-26.9,adult Over weight Nonsmoker Your Care Team Attending Physician - Silvia Diaz Primary Care Physician - Julee De Los Santos MD This Is Your Medications List Misc Prescription (Handicap placard) Misc Prescription (Misc DME Prescription) acetaminophen (Tylenol) atorvastatin (atorvastatin 20 mg Tab) escitalopram (escitalopram 5 mg oral tablet) folic acid (folic acid 1 mg Tab) metformin (metformin 850 mg Tab) methotrexate (methotrexate 2.5 mg Tab) predniSONE semaglutide (semaglutide 2 mg/3 mL (0.25 mg or 0.5 mg dose) subcutaneous solution) Procedures Performed Cardiac catheter, Carpal tunnel release, Cataracts, Colonoscopy, Extn - Extraction of tooth, EMERALD BSO - Total abdominal hysterectomy and bilateral salpingo-oophorectomy. Discharge Vitals Temperature (Temporal Artery) 37.3 ?C Heart Rate (Peripheral) 72 Respiratory Rate 16 Blood Pressure 136/80 Height 169 cm Height 67 in Weight 75.1 kg Weight 165.22 lb BMI 26.29 What to do next Scheduled Follow-Up Appointments Monday 10:20 AM EST With: Silvia Diaz Where: [facility] Normal [address] [place], [place] [id number]- \.br\ Medications\.br \ What How Much When Why Instructions\.b r\ Unchanged acetaminophen (Tylenol) 650 Milligram By Mouth Every 8 hours as needed for as needed for pain\.br\ Unchanged atorvastatin (atorvastatin 20 mg Tab) See instructions TAKE 1 TABLET BY MOUTH DAILY \.br\ Unchanged escitalopram (escitalopram 5 mg oral tablet) 1 Tablets By Mouth Every day Sinusitis Wheezing Cough Type 2 diabetes mellitus BMI 26.0-26.9,adult Overweight Former smoker Anxiety and depression\.br\ Unchanged folic acid (folic acid 1 mg Tab) 1 Tablets By Mouth Every day\.br\ Unchanged metformin (metformin 850 mg Tab) See instructions TAKE 1 TABLET BY MOUTH TWICE DAILY \.br\ Unchanged methotrexate (methotrexate 2.5 mg Tab) 8 Tablets By Mouth Every 7 days\.br\ Unchanged Misc Prescription (Handicap placard) See instructions Duration 5 years \.br\ Unchanged Misc Prescription (Misc DME Prescription) See instructions Disp one Glucometer, #100 test strips and #100 lancets to test blood sugars once a day. Dx E11.8 \.br\ Unchanged predniSONE 5 Milligram By Mouth Every day as needed for Breakthrough Pain\.br\ Unchanged semaglutide (semaglutide 2 mg/ 3 mL (0.25 mg or 0.5 mg dose) subcutaneous solution) 0.5 Milligram Subcutaneous Every week\.br\ Allergies\.br\ cefuroxime (Unknown)\.br\ Problems\.br\ Ongoing - Any problem that you are currently receiving treatment for.\.br\ Anxiety and depression\.br\ Blindness of right eye with normal vision in contralateral eye\.br\ Carpal tunnel syndrome\.br\ Controlled type 2 diabetes mellitus without complication, without long-term current use of insulin\.br\ Degenerative lumbar spinal stenosis\.br\ Fibromyalgia\.b r\ Hypercholestero lemia\.br\ Impingement of shoulder\.br\ Loss of vision\.br\ Macular degeneration of right eye\.br\ Migraines\.br\ Osteoporosis\.b r\ Polyp of colon\.br\ Rheumatoid arthritis involving multiple sites with positive rheumatoid factor\.br\ S/P tooth extraction\.br\ Sinusitis\.br\ Type 2 diabetes mellitus\.br\ Vitamin D deficiency\.br\ Wheezing\.br\ Patient Survey\.br\ You may receive a survey via text or e-mail asking about your office visit. Please share your experience with us by completing your survey. We appreciate your feedback and thank you for choosing us for your care.\.br\ \.br\ [facility] Family Medicine Office/Clini c Noteon 07-19-2023 Family Medicine Office/Clinic Note HPI Staff Yamile is a 68 year old female presenting for acute visit Respiratory C/O: DYLAN 07/11/23 seen for Sinusitis/Wheezing/cou gh started on Azithromycin, benzonatate Onset: Jul 04, seen jul 11 for this Body aches: no Chest congestion: yes Chills: yes Cough: yes Sputum production: yes cloudy in the morning a yellowish white and green at night Sore throat: no Ear complaints: no Eye itching/watering: no Fever: no Headache: no Nasal congestion: no Nasal discharge: no Poor appetite: no Reduced activity: no but staying inside due to being sick Sinus pain/pressure: no Sneezing: yes Wheezing: no Ill contacts: no Remedies tried: azithromycin, benzonatate robitussin DM Questions/Concerns: got sick after the covid and flu shots Feels the color of sputum is better from last OV and using the meds History of Present Illness pt presents today with continue cough, wheezing and congestion after finishing antibtiotics Review of Systems PHQ Score Initial Depression Screen Score: 0 SCORE ROS - Provider Constitutional: no fever, no chills, no sweats, no fatigue Respiratory: no shortness of breath, yes cough, no orthopnea, yes wheezing. Cardiovascular: no chest pain, no palpitations, no edema. Neurologic: no headache, no dizziness, no numbness, no weakness. Physical Exam Vitals & Measurements T: 37.3 ?C(Temporal Artery) HR: 72(Peripheral) RR: 16 BP: 136/80 SpO2: 96% HT: 67 in HT: 169 cm WT: 75.1 kg WT: 165.22 lb BMI: 26.29 General: alert, no acute distress ENMT: oral mucosa moist, no pharyngeal erythema or exudate Cardiovascular: regular rate and rhythm, normal peripheral perfusion Respiratory: Lungs expiratory wheezes, respirations non labored Extremities: no deformity, no trauma Neurological: oriented x 4, LOC appropriate for age, CN II-XII intact, motor strength equal & normal bilaterally, speech normal Assessment/Plan 1. Cough (R05.9: Cough, unspecified) pt completed z radha and had kenalog injection at last visit. 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 she bought Robitussin instead. pt have severe wheezing in all lung [facility]. pt given order for chest x ray to be done at [facility]. pt states she doesn't sleep much because she is coughing so much. will send medrol dose pack, levofloxacin and albuterol inhaler. all questions answered. RTC as needed Ordered: benzonatate, 100 mg = 1 cap(s), Oral, TID, X 7 day(s), # 21 cap(s), Refills(s) 0, Pharmacy: [facility], 169, cm, 07/11/23 14:36:00 EST, Height/Length Dosing, 75.6, kg, 07/11/23 14:36:00 EST, Weight Dosing 2. Nasal congestion (R09.81: Nasal congestion) see above 3. BMI 26.0-26.9,adult (Z68.26: Body mass index [BMI] 26.0-26.9, adult) BMI education complete Ordered: albuterol, 2 puff(s), Inhalation, q6hr, 8.5 gm, Refill(s) 0, [facility], 169, cm, 07/19/23 13:15:00 EST, Height/Length Dosing, 75.1, kg, 07/19/23 13:15:00 EST, Weight Dosing benzonatate, 100 mg = 1 cap(s), Oral, TID, X 7 day(s), # 21 cap(s), Refills(s) 0, Pharmacy: [facility], 169, cm, 07/11/23 14:36:00 EST, Height/Length Dosing, 75.6, kg, 07/11/23 14:36:00 EST, Weight Dosing levofloxacin, 500 mg = 1 tab(s), Oral, q24hr, X 7 day(s), # 7 tab(s), Refills(s) 0, Pharmacy: [facility], 169, cm, 07/19/23 13:15:00 EST, Height/Length Dosing, 75.1, kg, 07/19/23 13:15:00 EST, Weight Dosing methylPREDNISolone, = 1 packet(s), Oral, As Directed, as directed on package labeling, X 6 day(s), # 21 tab(s), Refills(s) 0, Pharmacy: [facility], 169, cm, 07/19/23 13:15:00 EST, Height/Length Dosing, 75.1, kg, 07/19/23 13:15:00 EST, Weight Dosing Body Mass Index (BMI) documented 3008F Current tobacco non-user 1036F Depression Screening Negative 3352F Influenza immunization administered or previously received 4274F Most recent diastolic blood pressure 80-89 mm Hg 3079F Patient screen for fall risk: no falls in last year or 1 fall with no injury in last year 1101F Systolic BP 130-139 mm Hg (Most Recent) 3075F 4. Over weight (E66.3: Overweight) see above Ordered: albuterol, 2 puff(s), Inhalation, q6hr, 8.5 gm, Refill(s) 0, [facility], 169, cm, 07/19/23 13:15:00 EST, Height/Length Dosing, 75.1, kg, 07/19/23 13:15:00 EST, Weight Dosing benzonatate, 100 mg = 1 cap(s), Oral, TID, X 7 day(s), # 21 cap(s), Refills(s) 0, Pharmacy: [facility], 169, cm, 07/11/23 14:36:00 EST, Height/Length Dosing, 75.6, kg, 07/11/23 14:36:00 EST, Weight Dosing levofloxacin, 500 mg = 1 tab(s), Oral, q24hr, X 7 day(s), # 7 tab(s), Refills(s) 0, Pharmacy: [facility], 169, cm, 07/19/23 13:15:00 EST, Height/Length Dosing, 75.1, kg, 07/19/23 13:15:00 EST, Weight Dosing methylPREDNISolone, = 1 packet(s), Oral, As Directed, as directed on package labeling, X 6 day(s), # 21 tab(s), Refills(s) 0, Pharmacy: [facility], 169, cm, 07/19/23 13:15:00 EST, Height/Length Dosing, 75.1, kg, 06/24 (more content not included)... Normal [facility] Comment on above: Result Comment: Elec tronically Signed By: Silvia Diaz\.br\Date and Time Signed: 07/19/23 13:36 EST Patient Correspondenceon Patient Correspondence [id number] 0TIFF Normal [facility] Physician Orderon 07-19-2023 Physician Order [id number]#1.0 0TIFF Normal [facility] Consenton 07-12-2023 Consent [id number]#1.0 0TIFF Normal [facility] Ambulatory Visit Summaryon 1 09-11-2022 Ambulatory Visit Summary YAMILE ROSE :1955 Visit Date:07/11/2023 Ambulatory Visit Instructions Your Diagnosis BMI 26.0-26.9,adult Overweight Former smoker Cough Your Care Team Attending Physician - Silvia Diaz Primary Care Physician - Julee De Los Santos MD This Is Your Medications List Misc Prescription (Handicap placard) Misc Prescription (Misc DME Prescription) acetaminophen (Tylenol) atorvastatin (atorvastatin 20 mg Tab) folic acid (folic acid 1 mg Tab) metformin (metformin 850 mg Tab) methotrexate (methotrexate 2.5 mg Tab) predniSONE semaglutide (semaglutide 2 mg/3 mL (0.25 mg or 0.5 mg dose) subcutaneous solution) Procedures Performed Cardiac catheter, Carpal tunnel release, Cataracts, Colonoscopy, Extn - Extraction of tooth, EMERALD BSO - Total abdominal hysterectomy and bilateral salpingo-oophorectomy. Discharge Vitals Temperature (Temporal Artery) 36.3 ?C Heart Rate (Peripheral) 74 Blood Pressure 120/76 Height 169 cm Height 67 in Weight 75.6 kg Weight 166.32 lb BMI 26.47 What to do next Scheduled Follow-Up Appointments Monday 10:40 AM EST With: Silvia Diaz Where: [facility] Normal [address] [place], [place] [id number]- \.br\ Medications\.br \ What How Much When Instructions\.b r\ Unchanged acetaminophen (Tylenol) 650 Milligram By Mouth Every 8 hours as needed for as needed for pain\.br\ Unchanged atorvastatin (atorvastatin 20 mg Tab) See instructions TAKE 1 TABLET BY MOUTH DAILY \.br\ Unchanged folic acid (folic acid 1 mg Tab) 1 Tablets By Mouth Every day\.br\ Unchanged metformin (metformin 850 mg Tab) See instructions TAKE 1 TABLET BY MOUTH TWICE DAILY \.br\ Unchanged methotrexate (methotrexate 2.5 mg Tab) 8 Tablets By Mouth Every 7 days\.br\ Unchanged Misc Prescription (Handicap placard) See instructions Duration 5 years \.br\ Unchanged Misc Prescription (Misc DME Prescription) See instructions Disp one Glucometer, #100 test strips and #100 lancets to test blood sugars once a day. 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 Please share your experience with us by completing your survey. We appreciate your feedback and thank you for choosing us for your care.\.br\ \.br\ [facility] Family Medicine Office/Clini c Alexa 07-11-2023 Family Medicine Office/Clinic Note HPI Staff Yamile is a 68 year old female presenting for acute sick visit received her flu and covid vaccine since last Mon and has had a cough ever since and bringing up green sputum Respiratory C/O: Onset: a week Body aches: yes but has RA Chest congestion: yes Chills: yes Cough: yes Sputum production: yes green Sore throat: yes Ear complaints: yes plugged Eye itching/watering: no Fever: no Headache: no Nasal congestion: no Nasal discharge: no Poor appetite: no Reduced activity: no Sinus pain/pressure: no Sneezing: yes Wheezing: no Ill contacts: no Remedies tried: tylenol and hot soup Questions/Concerns: History of Present Illness pt presents today with URI symptoms Review of Systems ROS - Provider Constitutional: no fever, no chills, no sweats, no fatigue Respiratory: no shortness of breath, no cough, no orthopnea, no wheezing. Cardiovascular: no chest pain, no palpitations, no edema. Neurologic: no headache, no dizziness, no numbness, no weakness. Physical Exam Vitals & Measurements T: 36.3 ?C(Temporal Artery) HR: 74(Peripheral) BP: 120/76 SpO2: 95% HT: 67 in HT: 169 cm WT: 75.6 kg WT: 166.32 lb BMI: 26.47 General: alert, no acute distress ENMT: oral mucosa moist, no pharyngeal erythema or exudate Cardiovascular: regular rate and rhythm, normal peripheral perfusion Respiratory: Lungs CTA, respirations non labored Extremities: no deformity, no trauma Neurological: oriented x 4, LOC appropriate for age, CN II-XII intact, motor strength equal & normal bilaterally, speech normal Assessment/Plan 1. Sinusitis (J32.9: Chronic sinusitis, unspecified) kenalog given in office today. green nasal drainage noted as well as red swollen nasal turbinates Ordered: azithromycin, = 1 packet(s), Oral, As Directed, as directed on package labeling, X 5 day(s), # 6 tab(s), Refills(s) 0, Pharmacy: [facility], 169, cm, 07/11/23 14:36:00 EST, Height/Length Dosing, 75.6, kg, 07/11/23 14:36:00 EST, Weight Dosing benzonatate, 100 mg = 1 cap(s), Oral, TID, X 7 day(s), # 21 cap(s), Refills(s) 0, Pharmacy: [facility], 169, cm, 07/11/23 14:36:00 EST, Height/Length Dosing, 75.6, kg, 07/11/23 14:36:00 EST, Weight Dosing 2. Wheezing (R06.2: Wheezing) expiratory wheezing noted on expiration. kenalog given in office today. marlyn garcia and willie interiano sent Ordered: azithromycin, = 1 packet(s), Oral, As Directed, as directed on package labeling, X 5 day(s), # 6 tab(s), Refills(s) 0, Pharmacy: [facility], 169, cm, 07/11/23 14:36:00 EST, Height/Length Dosing, 75.6, kg, 07/11/23 14:36:00 EST, Weight Dosing benzonatate, 100 mg = 1 cap(s), Oral, TID, X 7 day(s), # 21 cap(s), Refills(s) 0, Pharmacy: [facility], 169, cm, 07/11/23 14:36:00 EST, Height/Length Dosing, 75.6, kg, 07/11/23 14:36:00 EST, Weight Dosing 3. Cough (R05.9: Cough, unspecified) severe cough worse at night Ordered: azithromycin, = 1 packet(s), Oral, As Directed, as directed on package labeling, X 5 day(s), # 6 tab(s), Refills(s) 0, Pharmacy: [facility], 169, cm, 07/11/23 14:36:00 EST, Height/Length Dosing, 75.6, kg, 07/11/23 14:36:00 EST, Weight Dosing benzonatate, 100 mg = 1 cap(s), Oral, TID, X 7 day(s), # 21 cap(s), Refills(s) 0, Pharmacy: [facility], 169, cm, 07/11/23 14:36:00 EST, Height/Length Dosing, 75.6, kg, 07/11/23 14:36:00 EST, Weight Dosing triamcinolone, 40 mg = 1 mL, Injection, IntraMuscular, Once, Stop date 07/11/23 14:55:00 EST, Routine, Start date 07/11/23 14:55:00 EST, 07/11/23 14:55:00 EST 4. Type 2 diabetes mellitus (E11.9: Type 2 diabetes mellitus without complications) pt states she stopped taking ozempic 2 weeks ago. she was having GI issues. just had HGBA1C drawn yesterday it is 6.1. Pt will return in August to follow up and to have HGBA1C checked again 5. BMI 26.0-26.9,adult (Z68.26: Body mass index [BMI] 26.0-26.9, adult) BMI education complete. pt has lost 3 pounds since last visit Ordered: azithromycin, = 1 packet(s), Oral, As Directed, as directed on package labeling, X 5 day(s), # 6 tab(s), Refills(s) 0, Pharmacy: [facility], 169, cm, 07/11/23 14:36:00 EST, Height/Length Dosing, 75.6, kg, 07/11/23 14:36:00 EST, Weight Dosing benzonatate, 100 mg = 1 cap(s), Oral, TID, X 7 day(s), # 21 cap(s), Refills(s) 0, Pharmacy: [facility], 169, cm, 07/11/23 14:36:00 EST, Height/Length Dosing, 75.6, kg, 07/11/23 14:36:00 EST, Weight Dosing Body Mass Index (BMI) documented 3008F Current tobacco non-user 1036F Depression Screening Negative 3352F Influenza immunization administered or previously received 4274F Most recent diastolic blood pressure <80 mm Hg 3078F Patient screen for fall risk: no falls in last year or 1 fall with no injury in last year 1101F Systolic BP <130 mm Hg (Most Recent) 3074F 6. Overweight (E66.3: Overweight) see above Ordered: azithromycin, = 1 packet(s), (more content not included)... Normal [facility] Comment on above: Result Comment: Elec tronically Signed By: Silvia Diaz\.christopher\Date and Time Signed: 07/11/23 15:10 EST [id number] 07-10-2023 HbA1c (Bld) [Mass fraction] 6.1 % High <=5.9 [facility] Comment on above: Performed By: #### [id number] ####[facility] [address] [place] [address] Nurse Consultation Noteon Nurse Consultation Note Reason for Visit patient here for A1C draw Assessment/Plan Diabetes type 2, controlled (E11.9: Type 2 diabetes mellitus without complications) Medications atorvastatin 20 mg Tab, See Instructions folic acid 1 mg Tab, 1 mg= 1 tab(s), Oral, Daily Handicap placard, See Instructions ibuprofen 800 mg Tab, 800 mg= 1 tab(s), Oral, q6hr metformin 850 mg Tab, See Instructions methotrexate 2.5 mg Tab, 20 mg= 8 tab(s), Oral, q7day Misc DME Prescription, See Instructions semaglutide 2 mg/3 mL (0.25 mg or 0.5 mg dose) subcutaneous solution, 0.5 mg, SubCutaneous, qWeek, 1 refills Allergies cefuroxime (Unknown) Immunizations Vaccine Date Status Comments influenza virus vaccine, inactivated - Not Given Postpone due to refusal SARS-CoV-2 (COVID-19) [id number] 08/10/2022 Recorded influenza virus vaccine, inactivated 05/13/2022 Recorded SARS-CoV-2 (COVID-19) mRNA-1273 vaccine 12/15/2021 Recorded 2022-12-02: TPV60 zoster vaccine, inactivated 08/13/2021 Recorded SARS-CoV-2 (COVID-19) mRNA-1273 vaccine 05/20/2021 Recorded 2022-12-02: TPV39 zoster vaccine, inactivated 04/30/2021 Recorded influenza virus vaccine, inactivated 04/28/2021 Recorded SARS-CoV-2 (COVID-19) mRNA-1273 vaccine 11/11/2020 Recorded SARS-CoV-2 (COVID-19) mRNA-1273 vaccine 10/29/2020 Recorded 2022-12-02: TPV60 SARS-CoV-2 (COVID-19) mRNA-1273 vaccine 10/01/2020 Recorded 2022-12-02: TPV60 influenza virus vaccine, inactivated 06/06/2017 Recorded pneumococcal 23-valent vaccine 04/24/2015 Recorded Normal [facility] CBC W Auto Differential pane l (Bld)on 05-10-2023 Basophils (Bld) [#/Vol] 0.08 10*3/uL <0.11 k/uL [facility] Basophils/100 WBC (Bld) 1.2 % [facility] Differential cell count method Nom (Bld) Auto [facility] Eosinophils (Bld) [#/Vol] 0.17 10*3/uL <0.46 k/uL [facility] Eosinophils/100 WBC (Bld) 2.6 % [facility] Erythrocyte distribution width (RBC) [Ratio] 13.3 % 11.5 - 15.0 % [facility] Hematocrit (Bld) [Volume fraction] 43.6 % 36.0 - 46.0 % [facility] Hemoglobin (Bld) [Mass/Vol] 14.3 g/dL 11.5 - 15.5 g/dL [facility] Immature granulocytes (Bld) [#/Vol] <0.10 k/uL [facility] Immature granulocytes/100 WBC (Bld) 0.2 % [facility] Lymphocytes (Bld) [#/Vol] 1.98 10*3/uL 1.00 - 4.00 k/uL [facility] Lymphocytes/100 WBC (Bld) 29.9 % [facility] MCH (RBC) [Entitic mass] 30.6 pg 26.0 - 34.0 pg [facility] MCHC (RBC) [Mass/Vol] 32.8 g/dL 30.5 - 36.0 g/dL [facility] MCV (RBC) [Entitic vol] 93.2 fL 80.0 - 100.0 fL [facility] Monocytes (Bld) [#/Vol] 0.43 10*3/uL <0.87 k/uL [facility] Monocytes/100 WBC (Bld) 6.5 % [facility] Neutrophils (Bld) [#/Vol] 3.96 10*3/uL 1.45 - 7.50 k/uL [facility] Neutrophils/100 WBC (Bld) 59.6 % [facility] Nucleated RBC (Bld) [#/Vol] <0.01 k/uL [facility] Nucleated RBC/100 WBC (Bld) [Ratio] 0.0 /100 WBC [facility] Platelet mean volume (Bld) [Entitic vol] 10.5 fL 9.0 - 12.7 fL [facility] Platelets (Bld) [#/Vol] 200 10*3/uL 150 - 400 k/uL [facility] RBC (Bld) [#/Vol] 4.68 10*6/uL 3.90 - 5.2 0 m/uL [facility] WBC (Bld) [#/Vol] 6.63 10*3/uL 3.70 - 11. 00 k/uL [facility] Basophils (Bld) [#/Vol] 0.08 10*3/uL Normal <0.11 [facility] Comment on above: Order Comment: Speci men Type: BLOOD SPECIMEN Ordering Facility: [facility] Address: [address] [address] Performed By: #### 2 2322-2, 93432-2, 5-3 #### [facility] CLIA [id number] [address] [place] [address] [place] Basophils/100 WBC (Bld) 1.2 % Normal [facility] Comment on above: Order Comment: Speci men Type: BLOOD SPECIMEN Ordering Facility: [facility] Address: [address] [place] [address] Performed By: #### 2 2322-2, 73467-3, 5-3 #### [facility] CLIA [id number] [address] [place] [address] [place] Differential cell count method Nom (Bld) Auto Normal [facility] Comment on above: Order Comment: Speci men Type: BLOOD SPECIMEN Ordering Facility: [facility] Address: [address] [place] [address] Performed By: #### 2 2322-2, 66839-9, 5-3 #### [facility] CLIA [id number] [address] [place] [address] [place] Eosinophils (Bld) [#/Vol] 0.17 10*3/uL Normal <0.46 [facility] Comment on above: Order Comment: Speci men Type: BLOOD SPECIMEN Ordering Facility: [facility] Address: [address] [place] [address] Performed By: #### 2 2322-2, 36420-9, 5194-3 #### [facility] CLIA [id number] [address] [place] [address] [place] Eosinophils/100 WBC (Bld) 2.6 % Normal [facility] Comment on above: Order Comment: Speci men Type: BLOOD SPECIMEN Ordering Facility: [facility] Address: [address] [place] [address] Performed By: #### 2 2322-2, 84620-0, 5194-3 #### [facility] CLIA [id number] [address] [place] [address] [place] Erythrocyte distribution width (RBC) [Ratio] 13.3 % Normal 11.5-15.0 [facility] Comment on above: Order Comment: Speci men Type: BLOOD SPECIMEN Ordering Facility: [facility] Address: [address] [place] [address] Performed By: #### 2 2322-2, 56583-9, 5194-3 #### [facility] CLIA [id number] [address] [place] [address] [place] Hematocrit (Bld) [Volume fraction] 43.6 % Normal 36.0-46.0 [facility] Comment on above: Order Comment: Speci men Type: BLOOD SPECIMEN Ordering Facility: [facility] Address: [address] [place], [place] [id number] Performed By: #### 2 2322-2, 55583-0, 5194-3 #### [facility] CLIA [id number] [address] [place] [address] [place] Hemoglobin (Bld) [Mass/Vol] 14.3 g/dL Normal 11.5-15.5 [facility] Comment on above: Order Comment: Speci men Type: BLOOD SPECIMEN Ordering Facility: [facility] Address: [address] [place], [place] [id number] Performed By: #### 2 2322-2, 27626-5, 5194-3 #### [facility] CLIA [id number] [address] [id number] [place] Immature granulocytes (Bld) [#/Vol] 10*3/uL Normal <0.10 [facility] Comment on above: Order Comment: Speci men Type: BLOOD SPECIMEN Ordering Facility: [facility] Address: [address] Performed By: #### 2 2322-2, 73102-7, 5194-3 #### [facility] CLIA [id number] [address] [place] [address] [place] Immature granulocytes/100 WBC (Bld) 0.2 % Normal [facility] Comment on above: Order Comment: Speci men Type: BLOOD SPECIMEN Ordering Facility: [facility] Address: [address] Performed By: #### 2 2322-2, 55921-9, 5194-3 #### [facility] CLIA [id number] [address] [place] [address] [place] Lymphocytes (Bld) [#/Vol] 1.98 10*3/uL Normal 1.00-4.00 [facility] Comment on above: Order Comment: Speci men Type: BLOOD SPECIMEN Ordering Facility: [facility] Address: [address] [place] [address] Performed By: #### 2 2322-2, 01210-3, 5194-3 #### [facility] CLIA [id number] [address] [place] [address] [place] Lymphocytes/100 WBC (Bld) 29.9 % Normal [facility] Comment on above: Order Comment: Speci men Type: BLOOD SPECIMEN Ordering Facility: [facility] Address: [address] [place] [address] Performed By: #### 2 2322-2, 83086-8, 5194-3 #### [facility] CLIA [id number] [address] [place] [address] [place] MCH (RBC) [Entitic mass] 30.6 pg Normal 26.0-34.0 [facility] Comment on above: Order Comment: Speci men Type: BLOOD SPECIMEN Ordering Facility: [facility] Address: [address] [place] [address] Performed By: #### 2 2322-2, 94993-1, 5195-3 #### [facility] CLIA [id number] [address] [place] [address] [place] MCHC (RBC) [Mass/Vol] 32.8 g/dL Normal 30.5-36.0 [facility] Comment on above: Order Comment: Speci men Type: BLOOD SPECIMEN Ordering Facility: [facility] Address: [address] [place] [address] Performed By: #### 2 2322-2, 48492-6, 519-3 #### [facility] CLIA [id number] [address] [place] [address] [place] MCV (RBC) [Entitic vol] 93.2 fL Normal 80.0-100.0 [facility] Comment on above: Order Comment: Speci men Type: BLOOD SPECIMEN Ordering Facility: [facility] Address: [address] [place], [place] [id number] Performed By: #### 2 2322-2, 91009-1, 5195-3 #### [facility] CLIA [id number] [address] [place] [address] [place] Monocytes (Bld) [#/Vol] 0.43 10*3/uL Normal <0.87 [facility] Comment on above: Order Comment: Speci men Type: BLOOD SPECIMEN Ordering Facility: [facility] Address: [address] [place] [address] Performed By: #### 2 2322-2, 97313-5, 5195-3 #### [facility] CLIA [id number] [address] [address] [place] Monocytes/100 WBC (Bld) 6.5 % Normal [facility] Comment on above: Order Comment: Speci men Type: BLOOD SPECIMEN Ordering Facility: [facility] Address: [address] [place], [place] [id number] Performed By: #### 2 2322-2, 18513-5, 5-3 #### [facility] CLIA [id number] [address] [place] [address] [place] Neutrophils (Bld) [#/Vol] 3.96 10*3/uL Normal 1.45-7.50 [facility] Comment on above: Order Comment: Speci men Type: BLOOD SPECIMEN Ordering Facility: [facility] Address: [address] [place] [address] Performed By: #### 2 2322-2, 44316-7, 5194-3 #### [facility] CLIA [id number] [address] [place] [address] [place] Neutrophils/100 WBC (Bld) 59.6 % Normal [facility] Comment on above: Order Comment: Speci men Type: BLOOD SPECIMEN Ordering Facility: [facility] Address: [address] [place] [address] Performed By: #### 2 2322-2, 12975-2, 5194-3 #### [facility] CLIA [id number] [address] [place] [address] [place] Nucleated RBC (Bld) [#/Vol] 10*3/uL Normal <0.01 [facility] Comment on above: Order Comment: Speci men Type: BLOOD SPECIMEN Ordering Facility: [facility] Address: [address] [place], [place] [id number] Performed By: #### 2 2322-2, 46206-8, 5-3 #### [facility] CLIA [id number] [address] [id number] [place] Nucleated RBC/100 WBC (Bld) [Ratio] 0.0 /100 WBC Normal [facility] Comment on above: Order Comment: Speci men Type: BLOOD SPECIMEN Ordering Facility: [facility] Address: [address] [place] [address] Performed By: #### 2 2322-2, 60040-4, 5195-3 #### [facility] CLIA [id number] [address] [place] [address] [place] Platelet mean volume (Bld) [Entitic vol] 10.5 fL Normal 9.0-12.7 [facility] Comment on above: Order Comment: Speci men Type: BLOOD SPECIMEN Ordering Facility: [facility] Address: [address] [place] [address] Performed By: #### 2 2322-2, 75399-5, 5195-3 #### [facility] CLIA [id number] [address] [place] [address] [place] Platelets (Bld) [#/Vol] 200 10*3/uL Normal 150-400 [facility] Comment on above: Order Comment: Speci men Type: BLOOD SPECIMEN Ordering Facility: [facility] Address: [address] [place], [place] [id number] Performed By: #### 2 2322-2, 26380-0, 5195-3 #### [facility] CLIA [id number] [address] [place] [address] [place] RBC (Bld) [#/Vol] 4.68 10*6/uL Normal 3.90-5.20 [facility] Comment on above: Order Comment: Speci men Type: BLOOD SPECIMEN Ordering Facility: [facility] Address: [address] [place] [address] Performed By: #### 2 2322-2, 01923-9, 5195-3 #### [facility] CLIA [id number] [address] [place], [place] [id number] [place] WBC (Bld) [#/Vol] 6.63 10*3/uL Normal 3.70-11.00 [facility] Comment on above: Order Comment: Speci men Type: BLOOD SPECIMEN Ordering Facility: [facility] Address: [address] [place], [place] [address] Performed By: #### 2 2322-2, 62739-3, 5195-3 #### [facility] CLIA [id number] [address] [place] [address] [place] CNOVon 05-10-2023 CNOV Office Visit (ERWIN ) YAMILE ROSE ([id number]) 1955 F Date Time Provider Department 05/10/23 12:30 PM HARISH MARSHALL During your visit today, we recorded the following information about you: Pulse Blood pressure Weight 77/minute 122/66 75.8 kg Harish Marshall MD 05/10/2023 12:59 PM Signed [facility] Date of Service: 05/10/2023 Patient: Yamile Rose Medical Record: [id number] Primary Care Physician: Aleksander Jimenez MD Referring Provider: SELF Last Rheumatology visit: 02/08/2023 (with Harish Marshall) Chief complaint: Follow Up, Pain (Ongoing generalized pain.), and Refill Request History of Present Illness Yamile Rose is a 68 year old White female with medical history of rheumatoid arthritis, hyperlipidemia, diabetes mellitus, history of tobacco use, Histoplasmosis right eye in ( treated), macular degeneration ( blind right eye central vision), presents on 05/10/2023 for an in-person visit for evaluation of Follow Up, Pain (Ongoing generalized pain.), and Refill Request. She is currently taking methotrexate sodium, prednisone. Yamile is both RF - 49 (11/09/2022) and CCP - 275 (11/09/2022) positive. HISTORY OF PRESENT ILLNESS History of rheumatoid arthritis She was being followed by local rheumatology in [place], but her daughter wanted her to get a 2nd opinion at [facility]. Seen by Dr. Livingston in 05/2018 Her local rheum added methotrexate which she started after her visit here in 05/2018 She was following with chief operator hydroformer at [place] however her insurance was no more covering the chief operator hydroformer in [place] so she came back to [facility]. Patient reports pain over MCPs, PIPs, wrists, elbows, shoulders, hips, knees, toes- She also reports intermittent MCPs and PIPs swelling She thinks methotrexate has helped decrease the joint swelling however has not completely resolved. She reports she has good days and bad days and winter is worst. She takes prednisone 5 mg to 15 mg once every 3 to 4 days for intermittent flares Pain is worst in am and also if she is more active. EMS- 1 hour Denies history of inflammatory eye disease, inflammatory bowel disease, psoriasis, history of kidney disease/biopsy, nephrolithiasis, peptic ulcer disease, miscarriages, blood clots, malignancy, pleural/pericardial effusion, CHF, CAD, CVA. Seen as new patient by me in 10/2022- she had synovitis in her hands, advised to increase MTX to 20 mg weekly and advised to limit use of prednisone. 01/2023- Patient reports that her joint pain and swelling is better since increasing dose of methotrexate, no synovitis or tenderness on exam today Currently on MTX 20 mg weekly with folic acid 1 mg daily Plan Continue methotrexate 20 mg weekly Increase dose of folic acid to 2 mg daily due to oral ulcers 10/2022 RF 49, CCP 275 04/2018 RF 23 CCP 25 Sed rate/CRP normal TB screening negative Hepatitis B/C negative XR bilateral hands 10/2022- Mild osteoarthritis of the bilateral hands. XR bilateral feet 10/2022- Negative radiographs of the bilateral feet Radiograph bilateral feet 04/2018-Mild pes cavus bilaterally. Small calcaneal enthesophytes bilaterally. No erosions. Radiograph lumbar spine 04/2018-Minimal grade 1 anterolisthesis of L4 on L5. Disc heights are normal. Degenerative facet changes in the lower lumbar spine. INTERVAL HISTORY Today She reports that she held mtx for 2 and half weeks, due to ongoing oral sores despite taking folic acid 1 mg daily. She also had multiple tooth pulled out due to periodontitis. Since her tooth is pulled out, her oral sores has been significantly better so she is not sure if methotrexate or dental problem was causing oral sores. After holding methotrexate for 2 and half weeks she noticed worsening of joint pain in her hands and difficulty making fist so resumed last Monday. Patient-Entered Data PAIN EVALUATION No data found in the last 1 encounters. PROMIS Assessments PROMIS Assessments 11/08/2022 02/07/2023 05/05/2023 Physical Health Percentile 22 % 7 % 10 % Mental Health Percentile 26 % 9 % 9 % Pain Score 3 2 3 Pain Interference Percentile 12 % 8 % 12 % Fatigue Percentile 38 % 8 % 24 % Physical Function Percentile 21 % 12 % 16 % RAPID 3 [place] Activities of Daily Living 05/05/2023 9:15 AM 02/07/2023 10:24 AM 11/08/2022 11:32 AM Dress self? With SOME difficulty With SOME difficulty With SOME difficulty Get in and out of bed? With SOME difficulty With SOME difficulty With SOME difficulty Walk outdoors? With SOME difficulty With SOME difficulty With SOME difficulty Wash and dry body? With SOME difficulty With SOME difficulty With SOME difficulty Get in and out of car? With SOME difficulty With MUCH difficulty With SOME difficulty RAPID 3 Disease Activity Weighed Score Levels: 0 - 1: Christie (more content not included)... Normal [facility] Comprehensive metabolic 2000 panelon 05-10-2023 Albumin [Mass/Vol] 4.0 g/dL 3.9 - 4.9 g/dL [facility] ALP [Catalytic activity/Vol] 70 U/L 34 - 123 U/L [facility] ALT [Catalytic activity/Vol] 12 U/L 7 - 38 U/L [facility] Anion gap [Moles/Vol] 10 mmol/L 9 - 18 mmol/L [facility] AST [Catalytic activity/Vol] 15 U/L 13 - 35 U/L [facility] Bilirubin [Mass/Vol] 0.4 mg/dL 0.2 - 1.3 mg/dL [facility] Calcium [Mass/Vol] 9.3 mg/dL 8.5 - 10. 2 mg/dL [facility] Chloride [Moles/Vol] 104 mmol/L 97 - 105 mmol/L [facility] CO2 [Moles/Vol] 26 mmol/L 22 - 30 mmol/L [facility] Creatinine [Mass/Vol] 0.71 mg/dL 0.58 - 0.96 mg/dL [facility] Estimated Glomerular Filtration Rate 94 mL/min/1.73m >=60 mL/min/1.73m [facility] Glucose [Mass/Vol] 97 mg/dL 74 - 99 mg/dL [facility] Potassium [Moles/Vol] 4.4 mmol/L 3.7 - 5.1 mmol/L [facility] Protein [Mass/Vol] 6.0 g/dL Low 6.3 - 8.0 g/dL [facility] Sodium [Moles/Vol] 140 mmol/L 136 - 144 mmol/L [facility] Urea nitrogen [Mass/Vol] 12 mg/dL 7 - 21 mg/dL [facility] Albumin [Mass/Vol] 4.0 g/dL Normal 3.9-4.9 [facility] Comment on above: Order Comment: Speci men Type: BLOOD SPECIMENOrdering Facility: [facility] Address: [address] [place] [address] Performed By: #### 2 4323-8 ####[facility] LABCLIA [id number] [place] [address] [place] ALP [Catalytic activity/Vol] 70 U/L Normal 34-123 [facility] Comment on above: Order Comment: Speci men Type: BLOOD SPECIMENOrdering Facility: [facility] Address: [address] [place] [address] Performed By: #### 2 4323-8 ####[facility] LABCLIA [id number] [place] [address] [place] ALT [Catalytic activity/Vol] 12 U/L Normal 7-38 [facility] Comment on above: Order Comment: Speci men Type: BLOOD SPECIMENOrdering Facility: [facility] Address: [address] [place] [address] Performed By: #### 2 4323-8 ####[facility] LABCLIA [id number] [place] [address] [place] Anion gap [Moles/Vol] 10 mmol/L Normal 9-18 [facility] Comment on above: Order Comment: Speci men Type: BLOOD SPECIMENOrdering Facility: [facility] Address: [address] [place] [address] Performed By: #### 2 4323-8 ####[facility] LABCLIA [id number] [place] [address] [place] AST [Catalytic activity/Vol] 15 U/L Normal 13-35 [facility] Comment on above: Order Comment: Speci men Type: BLOOD SPECIMENOrdering Facility: [facility] Address: [address] [place] [address] Performed By: #### 2 4323-8 ####[facility] LABCLIA [id number] [place] [address] [place] Bilirubin [Mass/Vol] 0.4 mg/dL Normal 0.2-1.3 [facility] Comment on above: Order Comment: Speci men Type: BLOOD SPECIMENOrdering Facility: [facility] Address: [address] [place] [address] Performed By: #### 2 4323-8 ####[facility] LABCLIA [id number] [place] [address] [place] Calcium [Mass/Vol] 9.3 mg/dL Normal 8.5-10.2 [facility] Comment on above: Order Comment: Speci men Type: BLOOD SPECIMENOrdering Facility: [facility] Address: [address] [place] [address] Performed By: #### 2 4323-8 ####[facility] LABCLIA [id number] [place] [address] [place] Chloride [Moles/Vol] 104 mmol/L Normal 97-105 [facility] Comment on above: Order Comment: Speci men Type: BLOOD SPECIMENOrdering Facility: [facility] Address: [address] [place] [id number] Performed By: #### 2 4323-8 ####[facility] LABCLIA [id number] [place] [address] [place] CO2 [Moles/Vol] 26 mmol/L Normal 22-30 [facility] Comment on above: Order Comment: Speci men Type: BLOOD SPECIMENOrdering Facility: [facility] Address: [address] [place] [address] Performed By: #### 2 4323-8 ####[facility] LABCLIA [id number] [place] [address] [place] Creatinine [Mass/Vol] 0.71 mg/dL Normal 0.58-0.96 [facility] Comment on above: Order Comment: Speci men Type: BLOOD SPECIMENOrdering Facility: [facility] Address: [address] [place] [address] Performed By: #### 2 4323-8 ####[facility] LABIA [id number] [place] [address] [place] Creatinine and Glomerular filtration rate.predicted panel (S/P/Bld) 94 mL/min/1.73m??? Normal >=60 [facility] Comment on above: Order Comment: Speci men Type: BLOOD SPECIMENOrdering Facility: [facility] Address: [address] [place] [address] Result Comment: Rimma mated Glomerular Filtration Rate (eGFR) is calculated using the 2020 CKD-EPI creatinine equation. This equation utilizes serum creatinine, sex, and age as parameters. The creatinine assay has traceable calibration to isotope dilution-mass spectrometry. Refer to KDIGO guidelines for clinical interpretation. In patients with unstable renal function, e.g. those with acute kidney injury, the eGFR may not accurately reflect actual GFR. Performed By: #### 2 4323-8 ####[facility] LABCLIA [id number] [place] [address] [place] Glucose [Mass/Vol] 97 mg/dL Normal 74-99 [facility] Comment on above: Order Comment: Speci men Type: BLOOD SPECIMENOrdering Facility: [facility] Address: [address] [place] [address] Result Comment: The [place] Diabetes Association (ADA) provides guidance for cutoff values for fasting glucose and random glucose. The ADA defines fasting as no caloric intake for at least 8 hours. Fasting plasma glucose results between 100 to 125 mg/dL indicate increased risk for diabetes (prediabetes). Fasting plasma glucose results greater than or equal to 126 mg/dL meet the criteria for diagnosis of diabetes. In the absence of unequivocal hyperglycemia, results should be confirmed by repeat testing. In a patient with classic symptoms of hyperglycemia or hyperglycemic crisis, random plasma glucose results greater than or equal to 200 mg/dL meet the criteria for diagnosis of diabetes. Reference: Standards of Medical Care in Diabetes 2016, [place] [employer] Association. Diabetes Care. 2016.39(Suppl 1). Performed By: #### 2 4323-8 ####[facility] LABCLIA [id number] [place] [address] [place] Potassium [Moles/Vol] 4.4 mmol/L Normal 3.7-5.1 [facility] Comment on above: Order Comment: Mona gutierrez Type: BLOOD SPECIMENOrdering Facility: [facility] Address: [address] [place] [address] Performed By: #### 2 4323-8 ####[facility] LABCLIA [id number] [place] [address] [place] Protein [Mass/Vol] 6.0 g/dL Low 6.3-8.0 [facility] Comment on above: Order Comment: Marilui men Type: BLOOD SPECIMENOrdering Facility: [facility] Address: [address] [place] [address] Performed By: #### 2 4323-8 ####[facility] LABCLIA [id number] [place] [address] [place] Sodium [Moles/Vol] 140 mmol/L Normal 136-144 [facility] Comment on above: Order Comment: Speci men Type: BLOOD SPECIMENOrdering Facility: [facility] Address: [address] [place] [address] Performed By: #### 2 4323-8 ####[facility] LABCLIA [id number] [place] [address] [place] Urea nitrogen [Mass/Vol] 12 mg/dL Normal 7-21 [facility] Comment on above: Order Comment: Speci men Type: BLOOD SPECIMENOrdering Facility: [facility] Address: [address] [id number] Performed By: #### 2 4323-8 ####[facility] LABCLIA [id number] [place] [address] [place] No Panel Informationon 05-10 [facility] XR THORACIC 3V AP/LAT/SWIMME RSon 05-10-2023 XR THORACIC 3V AP/LAT/SWIMMERS * * *Final Report* * * DATE OF EXAM: May 10 2023 1:37PM LNX [id number] - XR THORACIC 3V AP/LAT/SWIMMERS / PROCEDURE REASON: Thoracic back pain, unspecified back pain laterality, unspecified chronicity * * * * Physician Interpretation * * * * THORACIC SPINE RADIOGRAPHS HISTORY: Thoracic back pain, unspecified back pain laterality, unspecified chronicity TECHNOLOGIST PROVIDED HISTORY (if applicable): upper back pain on left side under scapula, mass forms and gets red and swelling TECHNIQUE: XR THORACIC 3V AP/LAT/SWIMMERS COMPARISON: None available RESULT: Vertebral bodies have normal height and contour. There is no acute bony abnormality identified. Minor levocurvature at the distal thoracic spine may be positional Multilevel thoracic disc space narrowing with endplate osteophytes IMPRESSION: 1. Mild diffuse thoracic spondylosis as described above. Cap And Stud 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: PSCB Transcribe Date/Time: May 10 2023 2:16P Dictated by : KIARRA PARKER MD This examination was interpreted and the report reviewed and electronically signed by: KIARRA PARKER MD on May 10 2023 2:16PM EST [id number] Normal [facility] Family [facility] Office/Clini c Noteon 04-12-2023 Family Medicine Office/Clinic Note [facility] Staff Yamile is a 67 year old female presenting for 3 month follow up DM, cholesterol Do you have any of the following symptoms? Foot Exam: UTD ( dr Jimenez) Eye Exam: retina dr doshi 3, getting shots in her left eye, blind in right eye in central vision Last A1C: Hgb A1C %: 6.2 % High (01/09/23 17:07:00) Statin: atorvastatin Patient is here for follow up on hyperlipidemia: Do you have side effects from the medication? no Refill needed?: yes Yearly Lipid labs: UTD 01/09/23 flu: hold off until feels better questions/concerns: had 7 teeth pulled been miserable gave hydrocodone and it made her so sick, bd sugar dropped too low so using the ibuprofen and will not use the hydrocodone. hasn't taken the shot for 2 weeks now due to the low bd sugar reaction worried it'd drop more. Has blisters in her mouth and lips and tongue is white and she's miserable. History of Present Illness Yamile Rose is a 67-year-old female who presents today for a follow-up evaluation. The patient reports that she is not feeling well. She recently had a tooth extraction. She reports painful canker sores. She gets canker sores frequently. She had to go to [facility] because she had a challenging time finding insurance to take her insurance. She has Medicare and Medicaid insurance. She went to [place] and had an x-ray done. She was told that all of her teeth were coming out of the bone. She had 7 teeth extracted, 2 were 5 regular teeth. She was given pain medication, but she cannot take it. She felt like she was going to . She was sweating, vomiting, and her heart was racing. Her blood sugar dropped because she could not eat. She took some syrup and peanut butter. She has been eating more soup and pudding. She has been doing baking soda rinses and salt C salt rinses. She has a lot of saliva that comes in her mouth almost all the time. Her daughter bought her some orange gel. When she puts the gel in her mouth, it patino really bad. Review of Systems PHQ Score Initial Depression Screen Score: 1 Physical Exam Vitals & Measurements T: 36.0 ?C(Oral) HR: 72(Peripheral) RR: 14 BP: 144/82 SpO2: 96% HT: 67 in HT: 170.18 cm WT: 77.2 kg WT: 169.84 lb BMI: 26.66 General: alert, no acute distress ENMT: oral mucosa moist, multiple canker sores on her tongue, white coating on her tongue, but that does not look like thrush, multiple tooth extractions noted Cardiovascular: regular rate and rhythm, normal peripheral perfusion Respiratory: Lungs CTA, respirations non labored Extremities: no deformity, no trauma Neurological: oriented x 4, LOC appropriate for age, CN II-XII intact, motor strength equal & normal bilaterally, speech normal Assessment/Plan 1. S/P tooth extraction (K08.409: Partial loss of teeth, unspecified cause, unspecified class) I had advised OTC medication. Discussed mouthwashes to help alleviate some of this issue. Patient will follow up as needed if the tongue does not get better. Also advised the patient to follow up with her dentist. 2. Controlled type 2 diabetes mellitus without complication, without long-term current use of insulin (E11.9: Type 2 diabetes mellitus without complications) Patient needs to restart on the Ozempic so that she can continue to have good blood sugar control. Patient is agreeable to this and will follow up in 3 months for lab work and 6 months for another visit. We will see the patient sooner if no improvement or if labs are abnormal. 3. Hypercholesterolemia (E78.00: Pure hypercholesterolemia, unspecified) Continue on a statin. 4. BMI 26.0-26.9,adult (Z68.26: Body mass index [BMI] 26.0-26.9, adult) BMI education given. 5. Excess weight (E66.3: Overweight) Patient will continue to use the Ozempic to help with weight loss. Patient is down 6 pounds. Encouraged other patient's weight loss. 6. Macular degeneration of right eye, unspecified type (H35.30: Unspecified macular degeneration) Patient needs to continue seeing her charge lpn. Reviewed diabetic eye exam. We will see the patient again back in 6 months or sooner if needed. ATTESTATION: Portions of this record may have been created with voice recognition artificial intelligence software, specifically [employer], Dragon Express and or Dragon Ambient Experience. Substitutions may have occurred due to the inherent limitations of voice recognition and artificial intelligence software Documentation services were performed after patient or guardian consented to allow Dragon Ambient eXperience to record this visit. SHELDON brand specialist and provider reviewed before signing. SHELDON: Rosalina Mccloud. 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 Normal [facility] Comment on above: Result Comment: Elec tronically Signed By: Julee De Los Santos MD\.br\Date and Time Signed: 04/12/23 17:39 EDT\.br\Electronically Co-Signed By: Rosalina Mccloud\.br\Date and Time Co-Signed: 04/10/23 17:10 EDT Consultation Noteon 03-08-20 Consultation Note [id number] 0CD:127 Normal [facility] Formson 03-06-2023 Forms [id number] 0CD:127 Normal [facility] ALT SerPl-cCncon 02-08-2023 ALT [Catalytic activity/Vol] 31 U/L Normal 7-38 [facility] Comment on above: Order Comment: Speci men Type: BLOOD SPECIMEN [facility] Address: [address] [place] [address] Performed By: #### 2 2322-2, 17556-3, 5195-3 #### [facility] CLIA [id number] [address] [place] AST SerPl-cCncon 02-08-2023 AST [Catalytic activity/Vol] 24 U/L Normal 13-35 [facility] Comment on above: Order Comment: Speci men Type: BLOOD SPECIMEN [facility] Address: [address] [place] [address] Performed By: #### 2 2322-2, 15809-1, 5195-3 #### [facility] CLIA [id number] [address] [place] Albumin SerPl-mCncon 023 Albumin [Mass/Vol] 4.3 g/dL Normal 3.9-4.9 [facility] Comment on above: Order Comment: Speci men Type: BLOOD SPECIMEN [facility] Address: [address] [address] Performed By: #### 2 2322-2, 40745-0, 5195-3 #### [facility] CLIA [id number] [address] [place] CBC W Auto Differential pane l (Bld)on 02-08-2023 Basophils (Bld) [#/Vol] 0.09 10*3/uL <0.11 k/uL [facility] Basophils/100 WBC (Bld) 1.3 % [facility] Differential cell count method Nom (Bld) Auto [facility] Eosinophils (Bld) [#/Vol] 0.14 10*3/uL <0.46 k/uL [facility] Eosinophils/100 WBC (Bld) 2.1 % [facility] Erythrocyte distribution width (RBC) [Ratio] 14.0 % 11.5 - 15.0 % [facility] Hematocrit (Bld) [Volume fraction] 44.1 % 36.0 - 46.0 % [facility] Hemoglobin (Bld) [Mass/Vol] 14.3 g/dL 11.5 - 15.5 g/dL [facility] Immature granulocytes (Bld) [#/Vol] <0.10 k/uL [facility] Immature granulocytes/100 WBC (Bld) 0.3 % [facility] Lymphocytes (Bld) [#/Vol] 2.30 10*3/uL 1.00 - 4.00 k/uL [facility] Lymphocytes/100 WBC (Bld) 34.1 % [facility] MCH (RBC) [Entitic mass] 30.5 pg 26.0 - 34.0 pg [facility] MCHC (RBC) [Mass/Vol] 32.4 g/dL 30.5 - 36.0 g/dL [facility] MCV (RBC) [Entitic vol] 94.0 fL 80.0 - 100.0 fL [facility] Monocytes (Bld) [#/Vol] 0.44 10*3/uL <0.87 k/uL [facility] Monocytes/100 WBC (Bld) 6.5 % [facility] Neutrophils (Bld) [#/Vol] 3.75 10*3/uL 1.45 - 7.50 k/uL [facility] Neutrophils/100 WBC (Bld) 55.7 % [facility] Nucleated RBC (Bld) [#/Vol] <0.01 k/uL [facility] Nucleated RBC/100 WBC (Bld) [Ratio] 0.0 /100 WBC [facility] Platelet mean volume (Bld) [Entitic vol] 9.8 fL 9.0 - 12.7 fL [facility] Platelets (Bld) [#/Vol] 222 10*3/uL 150 - 400 k/uL [facility] RBC (Bld) [#/Vol] 4.69 10*6/uL 3.90 - 5.2 0 m/uL [facility] WBC (Bld) [#/Vol] 6.74 10*3/uL 3.70 - 11. 00 k/uL [facility] Basophils (Bld) [#/Vol] 0.09 10*3/uL Normal <0.11 [facility] Comment on above: Order Comment: Speci men Type: BLOOD SPECIMENOrdering Facility: [facility] Address: [address] [address] Performed By: #### 5 7021-8 ####[facility] LABIA [id number] [address] OF [facility] Basophils/100 WBC (Bld) 1.3 % Normal [facility] Comment on above: Order Comment: Speci men Type: BLOOD SPECIMENOrdering Facility: [facility] Address: [address] [place] [address] Performed By: #### 5 7021-8 ####[facility] LABIA [id number] [place] [address] [place] Differential cell count method Nom (Bld) Auto Normal [facility] Comment on above: Order Comment: Speci men Type: BLOOD SPECIMENOrdering Facility: [facility] Address: [address] [place] [address] Performed By: #### 5 7021-8 ####[facility] LABCLIA [id number] [place] [address] [place] Eosinophils (Bld) [#/Vol] 0.14 10*3/uL Normal <0.46 [facility] Comment on above: Order Comment: Speci men Type: BLOOD SPECIMENOrdering Facility: [facility] Address: [address] [place] [address] Performed By: #### 5 7021-8 ####[facility] LABIA [id number] [address] [place] Eosinophils/100 WBC (Bld) 2.1 % Normal [facility] Comment on above: Order Comment: Speci men Type: BLOOD SPECIMENOrdering Facility: [facility] Address: [address] [place], [place] [address] Performed By: #### 5 7021-8 ####[facility] LABCLIA [id number] [place] [address] [place] Erythrocyte distribution width (RBC) [Ratio] 14.0 % Normal 11.5-15.0 [facility] Comment on above: Order Comment: Speci men Type: BLOOD SPECIMENOrdering Facility: [facility] Address: [address] [place], [place] [address] Performed By: #### 5 7021-8 ####[facility] LABCLIA [id number] [place] [address] [place] Hematocrit (Bld) [Volume fraction] 44.1 % Normal 36.0-46.0 [facility] Comment on above: Order Comment: Speci men Type: BLOOD SPECIMENOrdering Facility: [facility] Address: [address] Performed By: #### 5 7021-8 ####[facility] LABCLIA [id number] [place] [address] [place] Hemoglobin (Bld) [Mass/Vol] 14.3 g/dL Normal 11.5-15.5 [facility] Comment on above: Order Comment: Speci men Type: BLOOD SPECIMENOrdering Facility: [facility] Address: [address] Performed By: #### 5 7021-8 ####[facility] LABCLIA [id number] [place] [address] [place] Immature granulocytes (Bld) [#/Vol] 10*3/uL Normal <0.10 [facility] Comment on above: Order Comment: Speci men Type: BLOOD SPECIMENOrdering Facility: [facility] Address: [address] Performed By: #### 5 7021-8 ####[facility] LABCLIA [id number] [place] [address] [place] Immature granulocytes/100 WBC (Bld) 0.3 % Normal [facility] Comment on above: Order Comment: Speci men Type: BLOOD SPECIMENOrdering Facility: [facility] Address: [address] Performed By: #### 5 7021-8 ####[facility] LABCLIA [id number] [place] [address] [place] Lymphocytes (Bld) [#/Vol] 2.30 10*3/uL Normal 1.00-4.00 [facility] Comment on above: Order Comment: Speci men Type: BLOOD SPECIMENOrdering Facility: [facility] Address: [address] Performed By: #### 5 7021-8 ####[facility] LABCLIA [id number] [address] [place] Lymphocytes/100 WBC (Bld) 34.1 % Normal [facility] Comment on above: Order Comment: Speci men Type: BLOOD SPECIMENOrdering Facility: [facility] Address: [address] [place] [address] Performed By: #### 5 7021-8 ####[facility] LABIA [id number] [address] [place] [facility] MCH (RBC) [Entitic mass] 30.5 pg Normal 26.0-34.0 [facility] Comment on above: Order Comment: Speci men Type: BLOOD SPECIMENOrdering Facility: [facility] Address: [address] [place] [address] Performed By: #### 5 7021-8 ####[facility] LABIA [id number] [address] [place] MCHC (RBC) [Mass/Vol] 32.4 g/dL Normal 30.5-36.0 [facility] Comment on above: Order Comment: Speci men Type: BLOOD SPECIMENOrdering Facility: [facility] Address: [address] [place], [place] [address] Performed By: #### 5 7021-8 ####[facility] LABIA [id number] [place] [address] [place] MCV (RBC) [Entitic vol] 94.0 fL Normal 80.0-100.0 [facility] Comment on above: Order Comment: Speci men Type: BLOOD SPECIMENOrdering Facility: [facility] Address: [address] [place], [place] [address] Performed By: #### 5 7021-8 ####[facility] LABIA [id number] [place] [address] [place] Monocytes (Bld) [#/Vol] 0.44 10*3/uL Normal <0.87 [facility] Comment on above: Order Comment: Speci men Type: BLOOD SPECIMENOrdering Facility: [facility] Address: [address] Performed By: #### 5 7021-8 ####[facility] LABIA [id number] [place] [address] [place] Monocytes/100 WBC (Bld) 6.5 % Normal [facility] Comment on above: Order Comment: Speci men Type: BLOOD SPECIMENOrdering Facility: [facility] Address: [address] Performed By: #### 5 7021-8 ####[facility] LABIA [id number] [place] [address] [place] Neutrophils (Bld) [#/Vol] 3.75 10*3/uL Normal 1.45-7.50 [facility] Comment on above: Order Comment: Speci men Type: BLOOD SPECIMENOrdering Facility: [facility] Address: [address] Performed By: #### 5 7021-8 ####[facility] LABIA [id number] [place] [address] [place] Neutrophils/100 WBC (Bld) 55.7 % Normal [facility] Comment on above: Order Comment: Speci men Type: BLOOD SPECIMENOrdering Facility: [facility] Address: [address] [place] [address] Performed By: #### 5 7021-8 ####[facility] LABIA [id number] [place] [address] [place] Nucleated RBC (Bld) [#/Vol] 10*3/uL Normal <0.01 [facility] Comment on above: Order Comment: Speci men Type: BLOOD SPECIMENOrdering Facility: [facility] Address: [address] [place] [address] Performed By: #### 5 7021-8 ####[facility] LABIA [id number] [place] [address] [place] Nucleated RBC/100 WBC (Bld) [Ratio] 0.0 /100 WBC Normal [facility] Comment on above: Order Comment: Speci men Type: BLOOD SPECIMENOrdering Facility: [facility] Address: [address] [place] [address] Performed By: #### 5 7021-8 ####[facility] LABIA [id number] [place] [address] [place] Platelet mean volume (Bld) [Entitic vol] 9.8 fL Normal 9.0-12.7 [facility] Comment on above: Order Comment: Speci men Type: BLOOD SPECIMENOrdering Facility: [facility] Address: [address] [place] [address] Performed By: #### 5 7021-8 ####[facility] LABIA [id number] [place] [address] [place] Platelets (Bld) [#/Vol] 222 10*3/uL Normal 150-400 [facility] Comment on above: Order Comment: Speci men Type: BLOOD SPECIMENOrdering Facility: [facility] Address: [address] [place] [address] Performed By: #### 5 7021-8 ####[facility] LABIA [id number] [place] [address] [place] RBC (Bld) [#/Vol] 4.69 10*6/uL Normal 3.90-5.20 [facility] Comment on above: Order Comment: Speci men Type: BLOOD SPECIMENOrdering Facility: [facility] Address: [address] [place] [address] Performed By: #### 5 7021-8 ####[facility] LABIA [id number] [place] [address] [place] WBC (Bld) [#/Vol] 6.74 10*3/uL Normal 3.70-11.00 [facility] Comment on above: Order Comment: Speci men Type: BLOOD SPECIMENOrdering Facility: [facility] Address: [address] [place] [address] Performed By: #### 5 7021-8 ####[facility] LABCLIA [id number] [address] [place] [address] [place] [facility] CNOVon 02-08-2023 CNOV Office Visit (RHEULN ) YAMILE ROSE ([id number]) 1955 F Date Time Provider Department 02/08/23 1:00 PM HARISH MARSHALL During your visit today, we recorded the following information about you: Pulse Blood pressure Weight 66/minute 128/62 78 kg Harish Marshall MD 02/08/2023 1:31 PM Signed [facility] Out[facility] Date of Service: 02/08/2023 Patient: Yamile Rose Medical Record: [id number] Primary Care Physician: Aleksander Jimenez MD Referring Provider: SELF Last Rheumatology visit: 11/09/2022 (with Harish Marshall) Chief complaint: Follow Up History of Present Illness Yamile Rose is a 67 year old White female with medical history of rheumatoid arthritis, hyperlipidemia, diabetes mellitus, history of tobacco use, Histoplasmosis right eye in ( treated), macular degeneration ( blind right eye central vision), presents on 02/08/2023 for an in-person visit for evaluation of Follow Up. She is currently taking methotrexate sodium, prednisone. Yamile is both RF - 49 (11/09/2022) and CCP - 275 (11/09/2022) positive. HISTORY OF PRESENT ILLNESS History of rheumatoid arthritis She was being followed by local rheumatology in [place], but her daughter wanted her to get a 2nd opinion at [facility]. Seen by Dr. Livingston in 05/2018 Her local rheum added methotrexate which she started after her visit here in 05/2018 She was following with chief operator hydroformer at [place] however her insurance was no more covering the chief operator hydroformer in [place] so she came back to [facility]. Patient reports pain over MCPs, PIPs, wrists, elbows, shoulders, hips, knees, toes- She also reports intermittent MCPs and PIPs swelling She thinks methotrexate has helped decrease the joint swelling however has not completely resolved. She reports she has good days and bad days and winter is worst. She takes prednisone 5 mg to 15 mg once every 3 to 4 days for intermittent flares Pain is worst in am and also if she is more active. EMS- 1 hour Denies history of inflammatory eye disease, inflammatory bowel disease, psoriasis, history of kidney disease/biopsy, nephrolithiasis, peptic ulcer disease, miscarriages, blood clots, malignancy, pleural/pericardial effusion, CHF, CAD, CVA. Seen as new patient by me in 10/2022- she had synovitis in her hands, advised to increase MTX to 20 mg weekly and advised to limit use of prednisone. 10/2022 RF 49, CCP 275 04/2018 RF 23 CCP 25 Sed rate/CRP normal TB screening negative Hepatitis B/C negative XR bilateral hands 10/2022- Mild osteoarthritis of the bilateral hands. XR bilateral feet 10/2022- Negative radiographs of the bilateral feet Radiograph bilateral feet 04/2018-Mild pes cavus bilaterally. Small calcaneal enthesophytes bilaterally. No erosions. Radiograph lumbar spine 04/2018-Minimal grade 1 anterolisthesis of L4 on L5. Disc heights are normal. Degenerative facet changes in the lower lumbar spine. INTERVAL HISTORY Patient reports that her joint pain and swelling is better. Her joints hurt more after she has been active on previous day such as if she is working in her yard She reports that her joint swelling is also better however is not able to bend at PIPs completely Has taken prednisone twice in the last 3 months Has noted sores in mouth sometimes Patient-Entered Data PAIN EVALUATION 02/07/2023 1013 Pain Level: 5 Pain Location: -- hands Description: Aching Duration Units: Weeks Frequency: Intermittent PROMIS Assessments PROMIS Assessments 05/10/2018 11/08/2022 02/07/2023 Physical Health Percentile 15.39 % 22 % 7 % Mental Health Percentile 18.67 % 26 % 9 % Pain Score 8 3 2 Pain Interference Percentile - 12 % 8 % Fatigue Percentile - 38 % 8 % Physical Function Percentile - 21 % 12 % RAPID 3 [place]arr Activities of Daily Living 02/07/2023 10:24 AM 11/08/2022 11:32 AM Dress self? With SOME difficulty With SOME difficulty Get in and out of bed? With SOME difficulty With SOME difficulty Walk outdoors? With SOME difficulty With SOME difficulty Wash and dry body? With SOME difficulty With SOME difficulty Get in and out of car? With MUCH difficulty With SOME difficulty RAPID 3 Disease Activity Weighed Score Levels: 0 - 1: Near Remission 1.3 - 2.0: Low Severity 2.3 - 4.0: Moderate Severity 4.3 - 10.0: High Severity RAPID-3 Weighed Score 06/27/2018 11/08/2022 02/07/2023 RAPID 3 Weighed Score 5.7 - - RAPID 3 Weighed Score - 4.78 (High Severity (HS)) 6.39 (High Severity (HS)) Review of Systems Review of Systems CONSTITUTION: Negative for: Fever and Recent weight change HEENT: Positive for: Trouble swallowing and Dry mouth Negative for: Nosebleeds and Mouth sores RESPIRATORY: Negative for: Cough, Shortness of breath and Pain with breathing GASTROINTESTINAL: Negative for: Melena, Diarrhea, Heartburn and Abdominal trav (more content not included)... Normal [facility] CREATININE [facility] 02-08-2023 Creatinine [Mass/Vol] 0.82 mg/dL Normal 0.58-0.96 [facility] Comment on above: Order Comment: Mona gutierrez Type: BLOOD SPECIMEN [facility] Address: [address] [place] [address] Performed By: #### 2 2322-2, 25438-9, 5195-3 #### [facility] CLIA [id number] [address] [place] [address] [place] ESTIMATED GLOMERULAR FILTRATION RATE 79 mL/min/1.73m??? Normal >=60 [facility] Comment on above: Order Comment: Mona gutierrez Type: BLOOD SPECIMEN [facility] Address: [address] [place] [address] Result Comment: Rimma mated Glomerular Filtration Rate (eGFR) is calculated using the 2020 CKD-EPI creatinine equation. This equation utilizes serum creatinine, sex, and age as parameters. The creatinine assay has traceable calibration to isotope dilution-mass spectrometry. Refer to KDIGO guidelines for clinical interpretation. In patients with unstable renal function, e.g. those with acute kidney injury, the eGFR may not accurately reflect actual GFR. Performed By: #### 2 2322-2, 09365-6, 5195-3 #### [facility] CLIA [id number] [address] [facility] [place] [address] [place] Outside Diabetes Eye Examon 01-29-2023 Outside Diabetes Eye Exam [id number]#[id number] 0CD:127 Normal [facility] Auto Diffon 01-10-2023 Basophils/100 WBC (Bld) 1.0 % Normal 0.0-2.0 [facility] Comment on above: Order Comment: Order Added by Discern Expert. Performed By: #### 2 036079, 7643907, 29437021, 6027738, 33751747, 7417603, 327232657 ####[facility] [address] [place] [address] Basophils/Leukocytes Auto (Bld) [Pure # fraction] 0.1 E9/L Normal 0.0-0.2 [facility] Comment on above: Order Comment: Order Added by Discern Expert. Performed By: #### 2 460613, 4196559, 68102577, 0112811, 71854423, 0017406, 226314810 ####[facility] [address] [place] [address] Eosinophils/100 WBC (Bld) 1.4 % Normal 0.0-8.0 [facility] Comment on above: Order Comment: Order Added by Discern Expert. Performed By: #### 2 054719, 7365085, 79267227, 7185658, 78828343, 9559515, 532642088 ####[address] [place] [address] Eosinophils/Leukocyte s Auto (Bld) [Pure # fraction] 0.1 E9/L Normal 0.0-0.5 [facility] Comment on above: Order Comment: Order Added by Discern Expert. Performed By: #### 2 865735, 6632363, 03510923, 4996564, 87491156, 2865656, 368495206 ####[address] [address] Lymphocytes/100 WBC (Bld) 28.1 % Normal 14.0-50.0 [facility] Comment on above: Order Comment: Order Added by Discern Expert. Performed By: #### 2 006643, 9445596, 79556454, 8268498, 90279440, 6208252, 610348773 ####[address] [address] Lymphocytes/Leukocyte s Auto (Bld) [Pure # fraction] 1.7 E9/L Normal 1.0-4.0 [facility] Comment on above: Order Comment: Order Added by Discern Expert. Performed By: #### 2 736279, 3825967, 35325914, 1725619, 38591925, 8646733, 409692081 ####[address] [address] Monocytes/100 WBC (Bld) 6.5 % Normal 4.0-14.0 [facility] Comment on above: Order Comment: Order Added by Discern Expert. Performed By: #### 2 319160, 2595969, 94321628, 9073848, 62942938, 3969274, 540255506 ####[address] [address] Monocytes/Leukocytes Auto (Bld) [Pure # fraction] 0.4 E9/L Normal 0.2-1.0 [facility] Comment on above: Order Comment: Order Added by Discern Expert. Performed By: #### 2 451683, 9869072, 28237936, 5463611, 44279284, 5090017, 482286231 ####[address] [place] [address] Neutrophils/100 WBC (Bld) 63.0 % Normal 36.0-75.0 [facility] Comment on above: Order Comment: Order Added by Discern Expert. Performed By: #### 2 374665, 1718508, 08225778, 7108606, 70970565, 7594899, 678928821 ####[address] [place] [address] Neutrophils/Leukocyte s Auto (Bld) [Pure # fraction] 3.8 E9/L Normal 2.0-7.5 [facility] Comment on above: Order Comment: Order Added by Discern Expert. Performed By: #### 2 604494, 5924225, 16513044, 2914400, 18916789, 7193020, 112538183 ####[address] [address] CBC w/ Auto Diffon 3 Erythrocyte distribution width (RBC) [Ratio] 14.6 % High 10.9-14.2 [facility] Comment on above: Performed By: #### 2 711320, 3831670, 22152756, 8988324, 23656895, 3344482, 231342949 ####[address] [place] [address] Hematocrit (Bld) [Volume fraction] 43.4 % Normal 34.0-46.0 [facility] Comment on above: Performed By: #### 2 367329, 5999202, 90543714, 5588212, 65684684, 6142741, 370079569 ####[address] [place] [address] Hemoglobin (Bld) [Mass/Vol] 14.7 g/dL Normal 12.0-16.0 [facility] Comment on above: Performed By: #### 2 840077, 0256652, 13478223, 1134437, 28702589, 5292689, 033688994 ####[facility] [address] [place] [address] MCH (RBC) [Entitic mass] 30.7 pg Normal 27.0-34.0 [facility] Comment on above: Performed By: #### 2 641605, 7762280, 87963011, 1266435, 16252869, 6263318, 339814210 ####[facility] [address] [place] [address] MCHC (RBC) [Mass/Vol] 33.9 g/dL Normal 31.4-36.0 [facility] Comment on above: Performed By: #### 2 830340, 2541686, 47445384, 0868847, 83331790, 8226977, 864814796 ####[address] [address] MCV (RBC) [Entitic vol] 90.6 fL Normal 80.0-100.0 [facility] Comment on above: Performed By: #### 2 998520, 2770576, 51287933, 4889760, 31154911, 9664255, 915522589 ####[address] [address] Platelet mean volume (Bld) [Entitic vol] 8.8 fL Normal 6.4-10.8 [facility] Comment on above: Performed By: #### 2 909535, 6506505, 55871927, 5289381, 02055049, 0797877, 959366325 ####[address] [address] Platelets (Bld) [#/Vol] 217.0 E9/L Normal 150.0-500.0 [facility] Comment on above: Performed By: #### 2 256567, 6226180, 73539864, 2847920, 02854409, 1731588, 098824615 ####[address] [address] RBC (Bld) [#/Vol] 4.8 E12/L Normal 4.3-5.9 [facility] Comment on above: Performed By: #### 2 537912, 7640450, 10716291, 6224905, 23520456, 8799193, 094739286 ####[facility] [address] [place] [address] WBC corrected for nucl RBC Auto (Bld) [#/Vol] 6.0 E9/L Normal 4.0-11.0 [facility] Comment on above: Performed By: #### 2 841771, 7108460, 77742125, 4645784, 07811624, 5589371, 968864425 ####[address] [place] [address] CMPon 01-10-2023 Albumin [Mass/Vol] 4.1 g/dL Normal 3.3-5.0 [facility] Comment on above: Performed By: #### 2 678216, 7337099, 46639248, 4986463, 58053913, 0983983, 531569908 ####[facility] [address] [place] [address] Albumin/Globulin (S) [Mass conc ratio] 1.4 Normal 1.1-2.2 [facility] Comment on above: Performed By: #### 2 876033, 4003906, 01007638, 6907512, 58396258, 8713070, 697095967 ####[address] [place] [address] ALP [Catalytic activity/Vol] 59 Int._Unit/L Normal 21-98 [facility] Comment on above: Performed By: #### 2 266562, 9440403, 87903528, 9120477, 15337557, 2061350, 146995268 ####[facility] [address] [place] [address] ALT No additional P-5'-P [Catalytic activity/Vol] 25 Int._Unit/L Normal 6-46 [facility] Comment on above: Performed By: #### 2 067567, 0226886, 37863762, 9212851, 71376314, 9996710, 302652518 ####[facility] [address] [place] [address] Anion gap [Moles/Vol] 12 mmol/L Normal 6-16 [facility] Comment on above: Performed By: #### 2 799626, 7680161, 86541100, 8300181, 96507302, 1766291, 030378399 ####[facility] [address] [place] [address] AST [Catalytic activity/Vol] 24 Int._Unit/L Normal 5-43 [facility] Comment on above: Performed By: #### 2 802308, 5107012, 23321919, 9435408, 70226677, 1763980, 113757739 ####[facility] [address] [place] [address] Bilirubin [Mass/Vol] 0.6 mg/dL Normal 0.0-1.1 [facility] Comment on above: Performed By: #### 2 394269, 6248901, 62231362, 4607548, 05754296, 7675402, 420114604 ####[facility] [address] [place] [address] Calcium [Mass/Vol] 9.9 mg/dL Normal 8.9-11.1 [facility] Comment on above: Performed By: #### 2 339052, 8204821, 99909390, 6027898, 29417402, 4235508, 434544073 ####[facility] [address] [place] [address] Chloride [Moles/Vol] 105 mmol/L Normal 101-111 [facility] Comment on above: Performed By: #### 2 116778, 5185574, 56153608, 7490487, 97169125, 5899784, 336940273 ####[facility] [address] [place] [address] CO2 [Moles/Vol] 27 mmol/L Normal 21-31 [facility] Comment on above: Performed By: #### 2 366163, 3747249, 36555921, 1085727, 21742123, 4980870, 658011895 ####[facility] [address] [place] [address] Creatinine [Mass/Vol] 0.8 mg/dL Normal 0.5-1.3 [facility] Comment on above: Performed By: #### 2 525090, 6389924, 01539332, 8744124, 17289602, 2112111, 972493954 ####[facility] [address] [place] [address] Globulin (S) [Mass/Vol] 2.9 g/dL Normal 1.4-4.0 [facility] Comment on above: Performed By: #### 2 062155, 9054908, 06032707, 1263744, 19244392, 4248922, 981383415 ####[facility] [address] [place] [address] Glucose [Mass/Vol] 110 mg/dL Normal 55-199 [facility] Comment on above: Result Comment: If t his glucose result represents a fasting glucose, interpretation should refer to the following reference range: 55-99 mg/dL Performed By: #### 2 755182, 2556886, 40697208, 3630827, 80060935, 2288468, 868878825 ####[facility] [address] [place] [address] Potassium [Moles/Vol] 4.0 mmol/L Normal 3.5-5.3 [facility] Comment on above: Performed By: #### 2 120288, 3031909, 13503889, 2317019, 88077481, 9821464, 508515326 ####[facility] [address] [place] [address] Protein [Mass/Vol] 7.0 g/dL Normal 6.0-7.8 [facility] Comment on above: Performed By: #### 2 266903, 8230510, 86259256, 0385836, 75399275, 1999856, 180325114 ####[facility] [address] [place] [address] Sodium [Moles/Vol] 140 mmol/L Normal 135-145 [facility] Comment on above: Performed By: #### 2 521778, 2873070, 29810138, 7590726, 60492406, 2873124, 389020827 ####[facility] [address] [place] [address] Urea nitrogen [Mass/Vol] 11 mg/dL Normal 5-21 [facility] Comment on above: Performed By: #### 2 504089, 3009630, 44363726, 1236529, 02304884, 0238341, 192717350 ####[facility] [address] [place] [address] Urea nitrogen/Creatinine [Mass ratio] 14 No Units Normal 10-20 [facility] Comment on above: Performed By: #### 2 348870, 9499956, 93882774, 8167332, 17364210, 5938311, 984401915 ####[facility] [address] [place] [address] Family Medicine Office/Clini c Noteon 01-10-2023 Family Medicine Office/Clinic Note Chief Complaint establish care HPI Staff establish care, former Dr Jimenez patient Establish Care: History: DM, hypercholesterolemia, OA, fibromyalgia Last provider: Tony Any recent labs: Her chief operator hydroformer has done some recently Sees Dr Harish Marshall (chief operator hydroformer) Health Maintenance UTD: Colonoscopy: 5-6 years Mammogram: 2022 Pelvic/Pap: no longer does them, hysterectomy covid: UTD Acute: Current issues/complaints: would like to know how her sugar is doing. Due for an A1C History of Present Illness Yamile Rose is a 67-year-old female who presents today for an evaluation of diabetes. She has a history of rheumatoid arthritis and osteoarthritis that she follows-up with rheumatology at [facility]. She recently had blood work done, but she needs her A1c checked. She states she has been experiencing increased urinary frequency for a while. She is currently taking Ozempic 0.5 mg and metformin. She has lost 6 pounds. The patient has a history of histoplasmosis. She was following-up with her retina specialist charge lpn, Dr. Moreno, but he recently retired. She had cataract surgery on 07/07/2022. She reports a tender bump on her skin that started 2 to 3 days ago. Review of Systems PHQ Score Initial Depression Screen Score: 0 Physical Exam Vitals & Measurements HR: 72(Peripheral) RR: 16 BP: 150/72 SpO2: 94% HT: 67 in HT: 170.18 cm WT: 79.6 kg WT: 175.12 lb BMI: 27.49 General: alert, no acute distress ENMT: oral mucosa moist, no pharyngeal erythema or exudate Cardiovascular: regular rate and rhythm, normal peripheral perfusion Respiratory: Lungs CTA, respirations non labored Extremities: no deformity, no trauma Neurological: oriented x 4, LOC appropriate for age, CN II-XII intact, motor strength equal & normal bilaterally, speech normal Assessment/Plan We will see the patient back in 3 months. 1. Controlled type 2 diabetes mellitus without complication, without long-term current use of insulin (E11.9: Type 2 diabetes mellitus without complications) We will recheck lab work today. We will adjust Ozempic as needed. 2. Rheumatoid arthritis involving multiple sites with positive rheumatoid factor (M05.79: Rheumatoid arthritis with rheumatoid factor of multiple sites without organ or systems involvement) Patient sees rheumatology. Continue to follow with them. 3. Polyp of colon, unspecified part of colon, unspecified type (K63.5: Polyp of colon) Reviewed last colonoscopy, which was in 2020. Patient is not due for another 10 years. No other issues. 4. Hx of compression fracture of spine (Z87.81: Personal history of (healed) traumatic fracture) This is stable. No other issues. 5. BMI 27.0-27.9,adult (Z68.27: Body mass index [BMI] 27.0-27.9, adult) BMI education given. 6. Overweight (E66.3: Overweight) Diet and exercise advised. 7. Hypercholesterolemia (E78.00: Pure hypercholesterolemia, unspecified) We will recheck cholesterol today. Patient is on Lipitor and encouraged the patient to continue on Lipitor at this time. 8. 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 Substitutions may have occurred due to the inherent limitations of voice recognition and artificial intelligence software. ATTESTATION: Documentation services were performed after patient or guardian consented to allow [employer] to record this visit. SHELDON brand specialist and provider reviewed before signing. 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 Medications atorvastatin 20 mg Tab, 20 mg= 1 tab(s), Oral, Daily folic acid 1 mg Tab, 1 mg= 1 tab(s), Oral, Daily metformin 850 mg Tab, 850 mg= 1 tab(s), Oral, BID methotrexate 2.5 mg Tab, 20 mg= 8 tab(s), Oral, q7day [facility], See Instructions semaglutide 2 mg/1.5 mL (0.25 mg or 0.5 mg dose) subcutaneous solution, 0.5 mg, SubCutaneous, qWeek Allergies cefuroxime (Unknown) Social History Tobacco Former smoker, quit more than 30 days ago Tobacco Us (more content not included)... Normal [facility] Comment on above: Result Comment: Elec tronically Signed By: Julee De Los Santos MD\.br\Date and Time Signed: 01/10/23 11:51 EDT\.br\Electronically Co-Signed By: Zanedr Cartwright\.br\Date and Time Co-Signed: 01/09/23 18:04 EDT [id number] 01-10-2023 HbA1c (Bld) [Mass fraction] 6.2 % High <=5.9 [facility] Comment on above: Performed By: #### 2 456507, 0861219, 78923308, 2418193, 19384239, 5519684, [id number] ####[facility] [address] [place] [address] Lipid Panelon 01-10-2023 Cholesterol [Mass/Vol] 199 mg/dL Normal 120-200 [facility] Comment on above: Performed By: #### 2 705094, 8229879, 01154490, 0040411, 08153685, 5754413, 647120915 ####[facility] [address] [place] [address] Cholesterol in HDL [Mass/Vol] 55 mg/dL Invalid Interpretation Code [facility] Comment on above: Result Comment: HDL > or equal to 60 mg/dL: Low cardiovascular risk HDL < 40 mg/dL : High cardiovascular risk Performed By: #### 2 280093, 3974053, 03942234, 0169872, 00295098, 7288098, 061824174 ####[facility] [address] [place] [address] Cholesterol in LDL [Mass/Vol] 106 mg/dL Normal <=129 [facility] Comment on above: Performed By: #### 2 036716, 2899233, 64791503, 5666479, 48104076, 2549550, 129662277 ####[facility] [address] [place] [address] Cholesterol in VLDL [Mass/Vol] 26 mg/dL Normal 7-40 [facility] Comment on above: Performed By: #### 2 809232, 5733985, 90777901, 4588622, 58758270, 7022573, 725153032 ####[facility] [address] [place] [address] Triglyceride [Mass/Vol] 129 mg/dL Normal <=149 [facility] Comment on above: Performed By: #### 2 567770, 5479524, 31257885, 1047474, 98940007, 7385377, 411617107 ####[facility] [address] [place] [address] TSH With T4fr Reflexon 01-10 TSH Qn 0.78 m[IU]/L Normal 0.34-5.60 [facility] Comment on above: Performed By: #### 2 607119, 5467001, 34879950, 0480748, 42694287, 2556877, 126397708 ####[facility] [address] [place] [address] U Microalbon 01-10-2023 Albumin DL <= 20 mg/L (U) [Mass/Vol] mg/dL Normal 0.0-19.0 [facility] Comment on above: Performed By: #### 1 [id number], 79078086 ####[facility] [address] [place] [address] U Protein/Creat Ratioon 12-23 Albumin Elph (U) [Mass fraction] <6.0 Invalid Interpretation Code [facility] Comment on above: Result Comment: The reference range and other method performance specifications have not been established for this test; results should be integrated into the clinical context for interpretation. Performed By: #### 1 [id number], [id number] ####[address] [address] Creatinine (U) [Mass/Vol] 55.6 mg/dL Invalid Interpretation Code [facility] Comment on above: Result Comment: The reference range and other method performance specifications have not been established for this test; results should be integrated into the clinical context for interpretation. Performed By: #### 1 [id number], 40395862 ####[facility] [address] [place] [address] U Prot/Creat Ratio [facility] Invalid Interpretation Code .00-200.00 [facility] Comment on above: Performed By: #### 1 [id number], 99688685 ####[address] [address] eGFRon 01-10-2023 GFR/1.73 sq M.predicted among non-blacks MDRD (S/P/Bld) [Vol rate/Area] 82 mL/min/1.73 m2 Normal >=59 [facility] Comment on above: Order Comment: Order added by Discern Expert. Result Comment: Electric Well Logging Operator diogo kidney disease could be indicated at eGFR's of less than 60 mL/min/1.73m2. Kidney failure is indicated at less than 15 mL/min/1.73m2. Performed By: #### 2 439565, 8331442, 23678378, 1039421, 13214728, 4910258, 361050200 ####[facility] [address] [place] [address] Ambulatory Visit Summaryon 0 01-09-2023 Ambulatory Visit Summary YAMILE ROSE :1955 Visit Date:01/09/2023 Ambulatory Visit Instructions Your Diagnosis Controlled type 2 diabetes mellitus without complication, without long-term current use of insulin Rheumatoid arthritis involving multiple sites with positive rheumatoid factor Polyp of colon, unspecified part of colon, unspecified type Hx of compression fracture of spine BMI 27.0-27.9,adult Overweight Your Care Team Attending Physician - Julee De Los Santos MD. Primary Care Physician - Julee De Los Santos MD. This Is Your Medications List Misc Prescription ([facility] Prescription) atorvastatin (atorvastatin 20 mg Tab) folic acid (folic acid 1 mg Tab) metformin (metformin 850 mg Tab) methotrexate (methotrexate 2.5 mg Tab) semaglutide (semaglutide 2 mg/1.5 mL (0.25 mg or 0.5 mg dose) subcutaneous solution) Procedures Performed Cardiac catheter, Carpal tunnel release, Cataracts, Colonoscopy, EMERALD BSO - Total abdominal hysterectomy and bilateral salpingo-oophorectomy. Discharge Vitals Heart Rate (Peripheral) 72 Respiratory Rate 16 Blood Pressure 150/72 Height 170.18 cm Height 67 in Weight 79.6 kg Weight 175.12 lb BMI 27.49 Medications What How Much When Instructions Unchanged atorvastatin (atorvastatin 20 mg Tab) 1 Tablets By Mouth Every day Unchanged folic acid (folic acid 1 mg Tab) 1 Tablets By Mouth Every day Unchanged metformin (metformin 850 mg Tab) 1 Tablets By Mouth 2 times a day Unchanged methotrexate (methotrexate 2.5 mg Tab) 8 Tablets By Mouth Every 7 days Unchanged Misc Prescription ([facility] Prescription) See instructions Disp one Glucometer, #100 test strips and #100 lancets to test blood sugars once a day. Dx E11.8 Unchanged semaglutide (semaglutide 2 mg/ 1.5 mL (0.25 mg or 0.5 mg dose) subcutaneous solution) 0.5 Milligram Subcutaneous Every week Allergies cefuroxime (Unknown) Problems Ongoing - Any problem that you are currently receiving treatment for. Carpal tunnel syndrome Controlled type 2 diabetes mellitus without complication, without long-term current use of insulin Degenerative lumbar spinal stenosis Fibromyalgia Hypercholesterolemia Impingement of shoulder Loss of vision Macular degeneration Migraines Osteoporosis Polyp of colon Rheumatoid arthritis involving multiple sites with positive rheumatoid factor Vitamin D deficiency Normal [facility] 25([place])D3 [facility] 2022 25-hydroxyvitamin D3 [Mass/Vol] 31.8 ng/mL Normal 31.0-80.0 [facility] Comment on above: Order Comment: Mona gutierrez Type: BLOOD SPECIMENOrdering Facility: [facility] Address: [address] [place] [address] Result Comment: Clas sification of 25 [place] Vitamin D status: Deficiency/Insufficiency: < or = 30 ng/ml. Sufficiency/Optimal Levels: 31-80 ng/mL Toxicity: > 100 ng/mL. Test performed by chemiluminescent immunoassay. Performed By: #### 1 989-3 ####[facility] LAB[facility] [id number] [facility] [place] [address] [place] BLOOD TB SCREENon 11-09-2022 M. tuberculosis tuberculin stim IFN-g Ql (Bld) Negative Normal [facility] Comment on above: Order Comment: Mona gutierrez Type: BLOOD SPECIMEN Ordering Facility: [facility] Address: [address] [address] Performed By: #### 2 2322-2, 52153-9, 5195-3 #### [facility] CLIA [id number] [address] [facility] [place] [address] [place] MITOGEN MINUS NIL >9.49 Normal >=0.50 [facility] Comment on above: Order Comment: Mona gutierrez Type: BLOOD SPECIMEN Ordering Facility: [facility] Address: [address] [place] [address] Performed By: #### 2 2322-2, 14043-3, 5194-3 #### [facility] CLIA [id number] [address] OF LOW TB GAMMA INTERPRETATION Infection with M. tuberculosis complex is unlikely. If latent tuberculosis infection is highly suspected, a negative result does not rule out the infection. Specimens from immunocompromised patients and those <5 years of age may show false negative results. In case of a contact investigation, please repeat 8-12 weeks after a known exposure. Normal [facility] Comment on above: Order Comment: Mona gutierrez Type: BLOOD SPECIMEN Ordering Facility: [facility] Address: [address] [place] [address] Performed By: #### 2 2322-2, 72369-1, 3 #### [facility] CLIA [id number] [address] STATES [place] TB NIL 0.51 IU/mL Normal <=8.00 [facility] Comment on above: Order Comment: Mona gutierrez Type: BLOOD SPECIMEN Ordering Facility: [facility] Address: [address] [place], [place] [id number] Performed By: #### 2 2322-2, 88588-8, 5194-3 #### [facility] CLIA [id number] [address] [place] [address] [place] TB1 AG MINUS NIL <0.00 Normal <0.35 [facility] Comment on above: Order Comment: Speci men Type: BLOOD SPECIMEN Ordering Facility: [facility] Address: [address] [place], [place] [id number] Performed By: #### 2 2322-2, 25789-8, 5194-3 #### [facility] CLIA [id number] [address] [place] [address] [place] TB2 AG MINUS NIL <0.00 Normal <0.35 [facility] Comment on above: Order Comment: Speci men Type: BLOOD SPECIMEN Ordering Facility: [facility] Address: [address] [phone] Performed By: #### 2 2322-2, 15108-1, 5195-3 #### [facility] CLIA [id number] [address] [facility] DESK [id number] [place] [address] [place]OW CBC W Auto Differential pane l (Bld)on 11-09-2022 Basophils (Bld) [#/Vol] 0.08 10*3/uL <0.11 k/uL [facility] Basophils/100 WBC (Bld) 1.3 % [facility] Differential cell count method Nom (Bld) Auto [facility] Eosinophils (Bld) [#/Vol] 0.13 10*3/uL <0.46 k/uL [facility] Eosinophils/100 WBC (Bld) 2.0 % [facility] Erythrocyte distribution width (RBC) [Ratio] 14.5 % 11.5 - 15.0 % [facility] Hematocrit (Bld) [Volume fraction] 46.4 % High 36.0 - 46.0 % [facility] Hemoglobin (Bld) [Mass/Vol] 15.0 g/dL 11.5 - 15.5 g/dL [facility] Immature granulocytes (Bld) [#/Vol] 0.04 10*3/uL <0.10 k/uL [facility] Immature granulocytes/100 WBC (Bld) 0.6 % [facility] Lymphocytes (Bld) [#/Vol] 1.94 10*3/uL 1.00 - 4.00 k/uL [facility] Lymphocytes/100 WBC (Bld) 30.4 % [facility] MCH (RBC) [Entitic mass] 30.4 pg 26.0 - 34.0 pg [facility] MCHC (RBC) [Mass/Vol] 32.3 g/dL 30.5 - 36.0 g/dL [facility] MCV (RBC) [Entitic vol] 93.9 fL 80.0 - 100.0 fL [facility] Monocytes (Bld) [#/Vol] 0.46 10*3/uL <0.87 k/uL [facility] Monocytes/100 WBC (Bld) 7.2 % [facility] Neutrophils (Bld) [#/Vol] 3.73 10*3/uL 1.45 - 7.50 k/uL [facility] Neutrophils/100 WBC (Bld) 58.5 % [facility] Nucleated RBC (Bld) [#/Vol] <0.01 k/uL [facility] Nucleated RBC/100 WBC (Bld) [Ratio] 0.0 /100 WBC [facility] Platelet mean volume (Bld) [Entitic vol] 10.0 fL 9.0 - 12.7 fL [facility] Platelets (Bld) [#/Vol] 231 10*3/uL 150 - 400 k/uL [facility] RBC (Bld) [#/Vol] 4.94 10*6/uL 3.90 - 5.2 0 m/uL [facility] WBC (Bld) [#/Vol] 6.38 10*3/uL 3.70 - 11. 00 k/uL [facility] Basophils (Bld) [#/Vol] 0.08 10*3/uL Normal <0.11 [facility] Comment on above: Order Comment: Speci men Type: BLOOD SPECIMEN Order[facility] Address: [address] [place] [address] Performed By: #### 2 2322-2, 02296-7, 5195-3 #### [facility] CLIA [id number] [address] [place] [address] [place] Basophils/100 WBC (Bld) 1.3 % Normal [facility] Comment on above: Order Comment: Speci men Type: BLOOD SPECIMEN Ordering Facility: [facility] Address: [address] [place] [address] Performed By: #### 2 2322-2, 11477-4, 5195-3 #### [facility] CLIA [id number] [address] [place] [address] [place] Differential cell count method Nom (Bld) Auto Normal [facility] Comment on above: Order Comment: Speci men Type: BLOOD SPECIMEN Ordering [facility]: [facility] Address: [address] [place] [address] Performed By: #### 2 2322-2, 74757-2, 5195-3 #### [facility] CLIA [id number] [address] [place] [address] [place] Eosinophils (Bld) [#/Vol] 0.13 10*3/uL Normal <0.46 [facility] Comment on above: Order Comment: Speci men Type: BLOOD SPECIMEN Ordering Facility: [facility] Address: [address] [address] Performed By: #### 2 2322-2, 39316-8, 5195-3 #### [facility] CLIA [id number] [address] [place] [address] [place] Eosinophils/100 WBC (Bld) 2.0 % Normal [facility] Comment on above: Order Comment: Speci men Type: BLOOD SPECIMEN Ordering [facility]: [facility] Address: [address] [place] [address] Performed By: #### 2 2322-2, 17863-8, 5194-3 #### [facility] CLIA [id number] [address] [place] [address] [place] Erythrocyte distribution width (RBC) [Ratio] 14.5 % Normal 11.5-15.0 [facility] Comment on above: Order Comment: Speci men Type: BLOOD SPECIMEN Ordering [facility] Address: [address] [place], [place] [phone] Performed By: #### 2 2322-2, 18865-7, 5194-3 #### [facility] CLIA [id number] [address] [place] [address] [place] Hematocrit (Bld) [Volume fraction] 46.4 % High 36.0-46.0 [facility] Comment on above: Order Comment: Speci men Type: BLOOD SPECIMEN [facility] Address: [address] [place], [place] [phone] Performed By: #### 2 2322-2, 01381-0, 5195-3 #### [facility] CLIA [id number] [address] [place] [address] [place] Hemoglobin (Bld) [Mass/Vol] 15.0 g/dL Normal 11.5-15.5 [facility] Comment on above: Order Comment: Speci men Type: BLOOD SPECIMEN [facility] Address: [address] [place], [place] [id number] Performed By: #### 2 2322-2, 29657-1, 5195-3 #### [facility] CLIA [id number] [address] [place] [address] [place] Immature granulocytes (Bld) [#/Vol] 0.04 10*3/uL Normal <0.10 [facility] Comment on above: Order Comment: Speci men Type: BLOOD SPECIMEN [facility] Address: [address] [place], [place] [phone] Performed By: #### 2 2322-2, 55905-9, 5195-3 #### [facility] CLIA [id number] [address] [place] [address] [place] Immature granulocytes/100 WBC (Bld) 0.6 % Normal [facility] Comment on above: Order Comment: Speci men Type: BLOOD SPECIMEN Order[facility]: [facility] Address: [address] [place] [address] Performed By: #### 2 2322-2, 96614-2, 5195-3 #### [facility] CLIA [id number] [address] [place] [address] [place] Lymphocytes (Bld) [#/Vol] 1.94 10*3/uL Normal 1.00-4.00 [facility] Comment on above: Order Comment: Speci men Type: BLOOD SPECIMEN Ordering [facility]: [facility] Address: [address] [place], [place] [id number] Performed By: #### 2 2322-2, 35650-3, 5-3 #### [facility] CLIA [id number] [address] [place] [address] [place] Lymphocytes/100 WBC (Bld) 30.4 % Normal [facility] Comment on above: Order Comment: Speci men Type: BLOOD SPECIMEN Ordering [facility]: [facility] Address: [address] [place], [place] [id number] Performed By: #### 2 2322-2, 90081-3, 5194-3 #### [facility] CLIA [id number] [address] [place] [address] [place] MCH (RBC) [Entitic mass] 30.4 pg Normal 26.0-34.0 [facility] Comment on above: Order Comment: Speci men Type: BLOOD SPECIMEN Ordering Facility: [facility] Address: [address] [place], [place] [id number] Performed By: #### 2 2322-2, 24928-3, 5194-3 #### [facility] CLIA [id number] [address] [place] [address] [place] MCHC (RBC) [Mass/Vol] 32.3 g/dL Normal 30.5-36.0 [facility] Comment on above: Order Comment: Speci men Type: BLOOD SPECIMEN Order[facility] Address: [address] [place], [place] [phone] Performed By: #### 2 2322-2, 78360-0, 5194-3 #### [facility] CLIA [id number] [address] [place] [address] [place] [facility] OF [place] MCV (RBC) [Entitic vol] 93.9 fL Normal 80.0-100.0 [facility] Comment on above: Order Comment: Speci men Type: BLOOD SPECIMEN [facility]: [facility] Address: [address] [place], [place] [id number] Performed By: #### 2 2322-2, 41207-4, 5194-3 #### [facility] CLIA [id number] [address] [place] [address] [place] Monocytes (Bld) [#/Vol] 0.46 10*3/uL Normal <0.87 [facility] Comment on above: Order Comment: Speci men Type: BLOOD SPECIMEN Ordering Facility: [facility] Address: [address] [place] [phone] Performed By: #### 2 2322-2, 13664-4, 5194-3 #### [facility] CLIA [id number] [address] [place] [address] [place] Monocytes/100 WBC (Bld) 7.2 % Normal [facility] Comment on above: Order Comment: Speci men Type: BLOOD SPECIMEN Ordering Facility: [facility] Address: [address] [place], [place] [id number] Performed By: #### 2 2322-2, 41488-8, 3 #### [facility] CLIA [id number] [address] [place] [address] [place] Neutrophils (Bld) [#/Vol] 3.73 10*3/uL Normal 1.45-7.50 [facility] Comment on above: Order Comment: Speci men Type: BLOOD SPECIMEN Order[facility] Address: [address] [place] [address] Performed By: #### 2 2322-2, 97038-9, 3 #### [facility] CLIA [id number] [address] [place] [address] [place] Neutrophils/100 WBC (Bld) 58.5 % Normal [facility] Comment on above: Order Comment: Speci men Type: BLOOD SPECIMEN Ordering [facility]: [facility] Address: [address] [place] [phone] Performed By: #### 2 2322-2, 00481-6, 5195-3 #### [facility] CLIA [id number] [address] [address] [place] Nucleated RBC (Bld) [#/Vol] 10*3/uL Normal <0.01 [facility] Comment on above: Order Comment: Speci men Type: BLOOD SPECIMEN Order[facility] Facility: [facility] Address: [address] Performed By: #### 2 2322-2, 69574-3, 3 #### [facility] CLIA [id number] [address] [place] [address] [place] Nucleated RBC/100 WBC (Bld) [Ratio] 0.0 /100 WBC Normal [facility] Comment on above: Order Comment: Speci men Type: BLOOD SPECIMEN Ordering [facility]: [facility] Address: [address] [address] [place], [place] [id number] Performed By: #### 2 2322-2, 95891-0, 3 #### [facility] CLIA [id number] [address] [place] [address] [place] Platelet mean volume (Bld) [Entitic vol] 10.0 fL Normal 9.0-12.7 [facility] Comment on above: Order Comment: Speci men Type: BLOOD SPECIMEN Ordering Facility: [facility] Address: [address] [place] [address] Performed By: #### 2 2322-2, 76852-0, 3 #### [facility] CLIA [id number] [address] [address] [place] Platelets (Bld) [#/Vol] 231 10*3/uL Normal 150-400 [facility] Comment on above: Order Comment: Speci men Type: BLOOD SPECIMEN Ordering Facility: [facility] Address: [address] [place], [place] [id number] Performed By: #### 2 2322-2, 32987-4, 5194-3 #### [facility] CLIA [id number] [address] [place] [address] [place] RBC (Bld) [#/Vol] 4.94 10*6/uL Normal 3.90-5.20 [facility] Comment on above: Order Comment: Speci men Type: BLOOD SPECIMEN Ordering Facility: [facility] Address: [address] [place] [address] Performed By: #### 2 2322-2, 71125-9, 5195-3 #### [facility] CLIA [id number] [address] [place] [address] [place] WBC (Bld) [#/Vol] 6.38 10*3/uL Normal 3.70-11.00 [facility] Comment on above: Order Comment: Speci men Type: BLOOD SPECIMEN Ordering Facility: [facility] Address: [address] [place] [address] Performed By: #### 2 2322-2, 71904-5, 5195-3 #### [facility] CLIA [id number] [address] [place] [address] OF LOW CNOVdorian 11-09-2022 CNOV Office Visit (ERWIN ) YAMILE ROSE ([id number]) 1955 F Date Time Provider Department 11/09/22 1:30 PM HARISH MARSHALL During your visit today, we recorded the following information about you: Pulse Blood pressure Weight Height 86/minute 118/65 80.7 kg 1.702 m Harish Marshall MD 11/09/2022 2:19 PM Signed Rheumatology Outpatient Clinic Date of Service: 11/09/2022 Patient: Yamile Rose Medical Record: [id number] Primary Care Physician: Aleksander Jimenez MD Referring Provider: SELF Last Rheumatology visit: 06/27/2018 (with Dinorah Santiago) Chief complaint: Consult Self referral requested for an opinion regarding RA. My final recommendations will be communicated back to the requesting physician by way of shared Medical record or letter to requesting physician via US mail. 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 She is currently taking methotrexate sodium, naproxen, prednisone. Yamile is both RF - 23 (05/10/2018) and CCP - 25 (05/10/2018) positive. HISTORY OF PRESENT ILLNESS History of rheumatoid arthritis She was being followed by local rheumatology in [place], but her daughter wanted her to get a 2nd opinion at [facility]. Seen by Dr. Livingston in 05/2018 Her local rheum added methotrexate which she started after her visit here in 05/2018 She was following with chief operator hydroformer at [place] however her insurance will know more cover the chief operator hydroformer in [place] so she came back to [facility]. Patient reports pain over MCPs, PIPs, wrists, elbows, shoulders, hips, knees, toes- She also reports intermittent MCPs and PIPs swelling She thinks methotrexate has helped decrease the joint swelling however has not completely resolved. She reports she has good days and bad days and winter is worst. She takes prednisone 5 mg to 15 mg once every 3 to 4 days for intermittent flares Pain is worst in am and also if she is more active. EMS- 1 hour Denies history of inflammatory eye disease, inflammatory bowel disease, psoriasis, history of kidney disease/biopsy, nephrolithiasis, peptic ulcer disease, miscarriages, blood clots, malignancy, pleural/pericardial effusion, CHF, CAD, CVA. 04/2018 RF 23 CCP 25 Sed rate/CRP normal TB screening negative Hepatitis B/C negative Radiograph bilateral feet 04/2018-Mild pes cavus bilaterally. Small calcaneal enthesophytes bilaterally. No erosions. Radiograph lumbar spine 04/2018-Minimal grade 1 anterolisthesis of L4 on L5. Disc heights are normal. Degenerative facet changes in the lower lumbar spine. Patient-Entered Data PAIN EVALUATION No data found in the last 1 encounters. PROMIS Assessments PROMIS Assessments 05/10/2018 11/08/2022 Physical Health Percentile 15.39 % 22 % Mental Health Percentile 18.67 % 26 % Pain Score 8 3 Pain Interference Percentile - 12 % Fatigue Percentile - 38 % Physical Function Percentile - 21 % RAPID 3 [place] Activities of Daily Living 11/08/2022 11:32 AM Dress self? With SOME difficulty Get in and out of bed? With SOME difficulty Walk outdoors? With SOME difficulty Wash and dry body? With SOME difficulty Get in and out of car? With SOME difficulty RAPID 3 Disease Activity Weighed Score Levels: 0 - 1: Near Remission 1.3 - 2.0: Low Severity 2.3 - 4.0: Moderate Severity 4.3 - 10.0: High Severity RAPID-3 Weighed Score 05/10/2018 06/27/2018 11/08/2022 RAPID 3 Weighed Score 6.8 5.7 - RAPID 3 Weighed Score - - 4.78 (High Severity (HS)) Review of Systems Review of Systems CONSTITUTION: HEENT: Positive for: Dry mouth RESPIRATORY: Negative for: Cough, Shortness of breath and Pain with breathing GASTROINTESTINAL: Negative for: Melena, Diarrhea, Heartburn and Abdominal pain MUSCULOSKELETAL: Positive for: Arthralgias, Myalgias, Muscle weakness, Joint swelling and Morning Joint Stiffness NEUROLOGICAL: SKIN: Negative for: Rash, Skin changes, Hair loss and Nail changes EYES: Positive for: Eye dryness Negative for: Eye pain, Eye redness and visual disturbance CARDIOVASCULAR: Negative for: Chest pain and Leg swelling GENITOURINARY: HEMATOLOGIC/LYMPHATIC: Negative for: Swollen glands Raynaud's: Denies Sicca: Denies Past Medical History PAST MEDICAL HISTORY Diagnosis Date Hyperlipidemia 07/27/2010 Macular degeneration 07/27/2010 Normal coronary arteries 07/2010 [facility] performed for evaluation chest pain, abnormal stress test UTI (urinary tract infection) 07/27/2010 Past Surgical History PAST SURGICAL HISTORY Procedure Laterality Date CARPAL TUNNEL HYSTERECTOMY HX (more content not included)... Normal [facility] CRP SerPl-mCncon 11-09-2022 CRP [Mass/Vol] mg/L Normal <0.9 [facility] Comment on above: Order Comment: Speci men Type: BLOOD SPECIMENOrdering Facility: [facility] Address: [place] [address] Performed By: #### 2 4323-02, 1987-11, ####[facility] [id number] [place] [address] [place] Comprehensive metabolic 2000 panelon 11-09-2022 Albumin [Mass/Vol] 4.1 g/dL Normal 3.9-4.9 [facility] Comment on above: Order Comment: Speci men Type: BLOOD SPECIMENOrdering Facility: [facility] Address: [address] [place], [place] [id number] Performed By: #### 2 4323-02, 1987-11, ####[facility] [id number] [place] [address] [place] ALP [Catalytic activity/Vol] 72 U/L Normal 34-123 [facility] Comment on above: Order Comment: Speci men Type: BLOOD SPECIMENOrdering Facility: [facility] Address: [address] [place], [place] [id number] Performed By: #### 2 4323-02, 1987-11, ####[facility] [id number] [place] [address] [place] ALT [Catalytic activity/Vol] 15 U/L Normal 7-38 [facility] Comment on above: Order Comment: Speci men Type: BLOOD SPECIMENOrdering Facility: [facility] Address: [address] [place] [id number] Performed By: #### 2 8, 1987-11, ####[facility] [id number] [place] [id number] [place] Anion gap [Moles/Vol] 11 mmol/L Normal 9-18 [facility] Comment on above: Order Comment: Speci men Type: BLOOD SPECIMENOrdering Facility: [facility] Address: [address] [place] [address] Performed By: #### 2 4328, 1987-11, ####[facility] [id number] [place] [address] [place] AST [Catalytic activity/Vol] 16 U/L Normal 13-35 [facility] Comment on above: Order Comment: Speci men Type: BLOOD SPECIMENOrdering Facility: [facility] Address: [address] [place], [place] [id number] Performed By: #### 2 4328, 1987-11, ####[facility]IA [id number] [place] [address] [place] Bilirubin [Mass/Vol] 0.2 mg/dL Normal 0.2-1.3 [facility] Comment on above: Order Comment: Speci men Type: BLOOD SPECIMENOrdering Facility: [facility] Address: [address] [place], [place] [id number] Performed By: #### 2 4328, 1987-11, ####[facility]IA [id number] [place] [address] [place] Calcium [Mass/Vol] 9.6 mg/dL Normal 8.5-10.2 [facility] Comment on above: Order Comment: Speci men Type: BLOOD SPECIMENOrdering Facility: [facility] Address: [address] [place], [place] [id number] Performed By: #### 2 4328, 1987-11, ####[facility]IA [id number] [place] [address] [place] Chloride [Moles/Vol] 104 mmol/L Normal 97-105 [facility] Comment on above: Order Comment: Speci men Type: BLOOD SPECIMENOrdering Facility: [facility] Address: [address] [place] [address] Performed By: #### 2 4328, 1987-11, ####[facility]IA [id number] [place] [address] [place] CO2 [Moles/Vol] 25 mmol/L Normal 22-30 [facility] Comment on above: Order Comment: Speci men Type: BLOOD SPECIMENOrdering Facility: [facility] Address: [address] [place] [address] Performed By: #### 2 43209-28, 1987-11, ####[facility]IA [id number] [address] [place] Creatinine [Mass/Vol] 1.04 mg/dL High 0.58-0.96 [facility] Comment on above: Order Comment: Speci men Type: BLOOD SPECIMENOrdering Facility: [facility] Address: [address] [place] [address] Performed By: #### 2 4328, 1987-11, ####[facility]IA [id number] [address] STATES [place] ESTIMATED GLOMERULAR FILTRATION RATE 60 mL/min/1.73m??? Normal >=60 [facility] Comment on above: Order Comment: Speci men Type: BLOOD SPECIMENOrdering Facility: [facility] Address: [address] [place] [address] Result Comment: Rimma mated Glomerular Filtration Rate (eGFR) is calculated using the 2020 CKD-EPI creatinine equation. This equation utilizes serum creatinine, sex, and age as parameters. The creatinine assay has traceable calibration to isotope dilution-mass spectrometry. Refer to KDIGO guidelines for clinical interpretation. In patients with unstable renal function, e.g. those with acute kidney injury, the eGFR may not accurately reflect actual GFR. Performed By: #### 2 43238, 1987-11, ####[facility]IA [id number] [place] [address] [place] Glucose [Mass/Vol] 124 mg/dL High 74-99 [facility] Comment on above: Order Comment: Speci men Type: BLOOD SPECIMENOrdering Facility: [facility] Address: [address] [place] [address] Result Comment: The [place] Diabetes Association (ADA) provides guidance for cutoff values for fasting glucose and random glucose. The ADA defines fasting as no caloric intake for at least 8 hours. Fasting plasma glucose results between 100 to 125 mg/dL indicate increased risk for diabetes (prediabetes). Fasting plasma glucose results greater than or equal to 126 mg/dL meet the criteria for diagnosis of diabetes. In the absence of unequivocal hyperglycemia, results should be confirmed by repeat testing. In a patient with classic symptoms of hyperglycemia or hyperglycemic crisis, random plasma glucose results greater than or equal to 200 mg/dL meet the criteria for diagnosis of diabetes. Reference: Standards of Medical Care in Diabetes 2016, [place] Diabetes Association. Diabetes Care. 2016.39(Suppl 1). Performed By: #### 2 43209-28, 1987-11, ####[facility]IA [id number] [place] [address] [place] Potassium [Moles/Vol] 4.3 mmol/L Normal 3.7-5.1 [facility] Comment on above: Order Comment: Speci men Type: BLOOD SPECIMENOrdering Facility: [facility] Address: [address] [place] [address] Performed By: #### 2 43209-28, ####[facility] [id number] [place] [id number] [place] Protein [Mass/Vol] 6.3 g/dL Normal 6.3-8.0 [facility] Comment on above: Order Comment: Speci men Type: BLOOD SPECIMENOrdering Facility: [facility] Address: [address] [place], [place] [id number] Performed By: #### 2 4328, ####[facility]IA [id number] [place] [address] [place] Sodium [Moles/Vol] 140 mmol/L Normal 136-144 [facility] Comment on above: Order Comment: Speci men Type: BLOOD SPECIMENOrdering Facility: [facility] Address: [address] [place] [address] Performed By: #### 2 4323-8, 1987-11, ####[facility]IA [id number] [place] [address] [place] Urea nitrogen [Mass/Vol] 14 mg/dL Normal 7-21 [facility] Comment on above: Order Comment: Speci men Type: BLOOD SPECIMENOrdering Facility: [facility] Address: [address] [place] [address] Performed By: #### 2 4323-8, 1987-11, ####[facility]IA [id number] [place] [address] [place] Cyclic citrullinated peptide IgG Qnon 11-09-2022 CCP ANTIBODY IGG QUALITATIVE Positive Abnormal Negative [facility] Comment on above: Order Comment: Speci men Type: BLOOD SPECIMENOrdering Facility: [facility] Address: [address] [place] [address] Performed By: #### 3 3935-8 ####[facility]IA [id number] [place] [address] [place] ESR Westergren method (Bld) [Velocity]on 11-09-2022 ESR (Bld) [Velocity] 6 mm/h 0 - 20 mm/hr [facility] ESR (Bld) [Velocity] 6 mm/h Normal 0-20 [facility] Comment on above: Order Comment: Speci men Type: BLOOD SPECIMEN Order[facility] Address: [address] [place] [address] Performed By: #### 2 2322-2, 65363-2, 5194-3 #### [facility] CLIA [id number] [address] [place] [address] [place] HBV core Ab Ser Qlon 023 HBV core Ab Ql (S) Negative Normal Negative [facility] Comment on above: Order Comment: Speci men Type: BLOOD SPECIMEN Order[facility]: [facility] Address: [address] [place] [address] Result Comment: No e vidence of current or past infection with Hepatitis B virus. Should recent infection be suspected, repeat testing may be considered 3-4 weeks after this draw. Performed By: #### 2 2322-2, 94629-1, 5194-3 #### [facility] CLIA [id number] [address] [place] [address] [place] HBV surface Ab Ql (S)on 10-22 HBV surface Ab Qn (S) <8.00 Low >=12.00 [facility] Comment on above: Order Comment: Speci men Type: BLOOD SPECIMEN Ordering Facility: [facility] Address: [address] [place] [address] Performed By: #### 2 2322-2, 76424-9, 3 #### [facility] CLIA [id number] [address] [place] [address] [place] HBV surface Ab Ser Qlon 10-22 HBV surface Ab Ql (S) Negative Abnormal Positive [facility] Comment on above: Order Comment: Speci men Type: BLOOD SPECIMEN Ordering Facility: [facility] Address: [address] [place] [address] Result Comment: No e vidence of antibodies to Hepatitis B surface antigen. Performed By: #### 2 2322-2, 74517-3, 53 #### [facility] CLIA [id number] [address] [place] [address] [place] HBV surface Ag Ser Qlon 10-22 HBV surface Ag Ql (S) Negative Normal Negative [facility] Comment on above: Order Comment: Speci men Type: BLOOD SPECIMEN Ordering Facility: [facility] Address: [address] [place] [address] Performed By: #### 2 2322-2, 66209-7, 5195-3 #### [facility] CLIA [id number] [address] [place] HCV Ab Ser Qlon 11-09-2022 HCV Ab Ql (S) Negative Normal Negative [facility] Comment on above: Order Comment: Speci men Type: BLOOD SPECIMEN Ordering Facility: [facility] Address: [address] [place] [address] Result Comment: The result suggests no evidence of active infection with Hepatitis C virus. Should recent infection be suspected, repeat testing may be considered 4-6 weeks after this draw. Performed By: #### 2 2322-2, 26408-2, 5195-3 #### [facility] CLIA [id number] [address] [place] [address] [place] Rheumatoid fact SerPl-aCncon 11-09-2022 Rheumatoid factor Qn 49 [IU]/mL High <16 [facility] Comment on above: Order Comment: Speci men Type: BLOOD SPECIMENOrdering Facility: [facility] Address: [address] [place] [address] Performed By: #### 2 4323-8, 1987-, 40005-7 ####[facility] [id number] [place] [address] [place] XR FOOT 3V AP/LAT/OBL BILon 11-09-2022 XR FOOT 3V AP/LAT/OBL JAMSHID * * *Final Report* * * DATE OF EXAM: Nov 09 2022 3:01PM LZX 5555 - XR FOOT 3V AP/LAT/OBL JAMSHID / PROCEDURE REASON: Rheumatoid arthritis involving multiple sites with positive rheumatoid factor (H * * * * Physician Interpretation * * * * FOOT RADIOGRAPHS - BILATERAL HISTORY: Rheumatoid arthritis involving multiple sites with positive rheumatoid factor (HCC) TECHNOLOGIST PROVIDED HISTORY (if applicable): chronic jamshid foot pain TECHNIQUE: XR FOOT 3V AP/LAT/OBL JAMSHID COMPARISON: Bilateral foot radiographs 05/10/2018 RESULT: Bone mineralization appears normal. Right foot: There are no visualized articular erosions in the foot. No focal bony abnormality is identified. Joint spaces are preserved, and there is no soft tissue swelling. Left foot: There are no visualized articular erosions in the foot. No focal bony abnormality is identified. Joint spaces are preserved, and there is no soft tissue swelling. Small calcaneal enthesophytes. IMPRESSION: 1. 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 Transcribe Date/Time: Nov 10 2022 8:55A Dictated by : KIARRA PARKER MD This examination was interpreted and the report reviewed and electronically signed by: KIARRA PARKER MD on Nov 10 2022 8:57AM EST [id number] Normal [facility] XR HAND 3V PA/LAT/OBL BILon 11-09-2022 XR HAND 3V PA/LAT/OBL JAMSHID * * *Final Report* * * DATE OF EXAM: Nov 09 2022 3:01PM LZX 5556 - XR HAND 3V PA/LAT/OBL JAMSHID / PROCEDURE REASON: Rheumatoid arthritis involving multiple sites with positive rheumatoid factor (H * * * * Physician Interpretation * * * * HAND RADIOGRAPHS - BILATERAL HISTORY: Rheumatoid arthritis involving multiple sites with positive rheumatoid factor (HCC) TECHNOLOGIST PROVIDED HISTORY (if applicable): chronic jamshid hand joint pain, arthritis TECHNIQUE: XR HAND 3V PA/LAT/OBL JAMSHID COMPARISON: None available RESULT: There is generalized osteopenia. There is no evidence for articular erosion or periarticular osteopenia in the right hand. No focal bony abnormality is identified. There is mild narrowing of the interphalangeal joint spaces. There is no soft tissue swelling. There is no evidence for articular erosion or periarticular osteopenia in the left hand. No focal bony abnormality is identified. There is mild narrowing of the interphalangeal joint spaces. There is no soft tissue swelling. Mild negative ulnar variance bilaterally. IMPRESSION: 1. Mild osteoarthritis of the bilateral hands. 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 Transcribe Date/Time: Nov 10 2022 8:57A Dictated by : KIARRA PARKER MD This examination was interpreted and the report reviewed and electronically signed by: KIARRA PARKER MD on Nov 10 2022 8:59AM EST [id number] Normal [facility] cCP IgG SerPl-aCncon 023 Cyclic citrullinated peptide IgG Qn >250 High <20 [facility] Comment on above: Order Comment: Speci men Type: BLOOD SPECIMENOrdering Facility: [facility] Address: [address] [place], [place] [address] Performed By: #### 3 3935-8 ####[facility] LABCLIA [id number] [facility] [id number] [place] MG MAMM SCREEN 3D JAMSHID CADon 09-13-2022 MG MAMM SCREEN 3D JAMSHID CAD Patient: YAMILE ROSE Exam Date: 09/13/2022 : 1955 Gender:F Ordering : DR ALEKSANDER JIMENEZ . Admission #: [id number] Family : Order #: [id number] CLICK HERE TO VIEW EXAM RADIOLOGY REPORT PROCEDURE: MAMMOGRAM SCREENING 3D BILATERAL CAD COMPARISON: MG MAMM SCREEN JAMSHID W CAD, 09/25/2020. MG MAMM JAMSHID SCRN W CAD DIG, 10/14/2013. MG MAMM JAMSHID SCRN W CAD DIG, 11/12/2009. MG MAMM JAMSHID SCRN W CAD DIG, 10/09/2002. INDICATIONS: Screening mammography Calculator Name NCI Breast Cancer Risk Assessment Tool 5 Year Breast Cancer Risk 0.80% Lifetime Breast Cancer Risk 3.10% Personal Breast Cancer No Personal Ovarian Cancer No Treatments None Family Cancers Mother with bladder cancer at age 57; Father with liver cancer at age 77. LOCATION: [facility] BREAST COMPOSITION: Scattered areas fibroglandular density. FINDINGS: DIAGNOSTIC CATEGORY 2--BENIGN FINDING: RIGHT BREAST: No significant suspicious finding. Scattered benign-appearing lymph nodes are present. No significant change has occurred. LEFT BREAST: No significant suspicious finding. Scattered benign-appearing lymph nodes are present. No significant change has occurred. RECOMMENDATIONS: ROUTINE MAMMOGRAM AND CLINICAL EVALUATION IN 12 MONTHS. PLEASE NOTE: A NORMAL MAMMOGRAM DOES NOT EXCLUDE THE POSSIBILITY OF BREAST CANCER. A CLINICALLY SUSPICIOUS PALPABLE LUMP SHOULD BE BIOPSIED. Dictated by: Miriam Neal M.D. on 09/15/2022 at 12:10 Approved by: Miriam Neal M.D. on 09/15/2022 at 12:13 Normal [facility] Glucose Glucometer (BldC) [M ass/Vol]Ordered By: Balwinder Hankins on 07-07-2022 Glucose [Mass/Vol] 117 mg/dL [facility] Comment on above: Random Glucose Refer ence Range is dependent on time and content of last meal. Glucose of more than 200 mg/dL in a nonstressed, ambulatory subject supports the diagnosis of Diabetes Mellitus. Glucose Poct Glucometerson 1 09-07-2021 Commemt1 Glu2: Cleaned Meter Normal [facility] Comment on above: Result Comment: PERF ORMED BY: [facility] [address] [address] PATHOLOGIST ACQUISITION PROFESSIONAL SAM ADAME M.D. Performed By: #### G LULS #### Point of Care testing , Glucose [Mass/Vol] 117 mg/dL Normal [facility] Comment on above: Result Comment: [place] om Glucose Reference Range is dependent on time and content of last meal. Glucose of more than 200 mg/dL in a nonstressed, ambulatory subject supports the diagnosis of Diabetes Mellitus. Performed By: #### G LULS #### Point of Care testing , No Panel InformationOrdered By: Balwinder Hankins on 07-07-2022 Bedside Glucose Comment Glu2: cleaned meter [facility] CBC AUTO DIFFon 07-05-2022 BASO # 0.1 103/ul Normal 0.0-0.1 [facility] Comment on above: Performed By: #### C BC #### [facility] [address] [address] [address] Ruthie Richard Basophils/100 WBC (Bld) 0.8 % Normal 0.2-2.0 [facility] Comment on above: Performed By: #### C BC #### [facility] [address] [address] [address] Ruthie Richard EO # 0.1 103/ul Normal 0.0-0.7 [facility] Comment on above: Performed By: #### C BC #### [facility] [address] [place] [address] Dr. Ruthie Richard Eosinophils/100 WBC (Bld) 1.4 % Normal 0.9-7.0 [facility] Comment on above: Performed By: #### C BC #### [facility] [address] [place] [address] Dr. Ruthie Richard Erythrocyte distribution width (RBC) [Ratio] 13.8 % Normal 11.0-15.0 [facility] Comment on above: Performed By: #### C BC #### [facility] [address] [place] [address] Dr. Ruthie Richard Hematocrit (Bld) [Volume fraction] 44.5 % Normal 36.0-48.0 [facility] Comment on above: Performed By: #### C BC #### [facility] [address] [place] [address] Dr. Ruthie Richard Hemoglobin (Bld) [Mass/Vol] 15.0 g/dL Normal 12.0-16.0 [facility] Comment on above: Performed By: #### C BC #### [facility] [address] [place] [address] Dr. Ruthie Richard IG # 0.01 10e3/ul Normal 0.00-0.03 [facility] Comment on above: Performed By: #### C BC #### [facility] [address] [place] [address] Dr. Ruthie Richard IG % 0.1 % Normal 0.0-0.5 [facility] Comment on above: Performed By: #### C BC #### [facility] [address] [place] [address] Dr. Ruthie Richard LYMPH # 2.0 103/ul Normal 1.2-3.8 [facility] Comment on above: Performed By: #### C BC #### [facility] [address] [place] [address] Dr. Ruthie Richard Lymphocytes/100 WBC (Bld) 27.4 % Normal 20.5-60.0 [facility] Comment on above: Performed By: #### C BC #### [facility] [address] [place] [address] Dr. Ruthie Richard MANUAL DIFF REQ NO Normal [facility] Comment on above: Performed By: #### C BC #### [facility] [address] [place] [address] Dr. Ruthie Richard MCH (RBC) [Entitic mass] 29.6 pg Normal 26.7-34.0 [facility] Comment on above: Performed By: #### C BC #### [facility] [address] [place] [address] Dr. Ruthie Richard MCHC (RBC) [Mass/Vol] 33.7 g/dL Normal 29.9-35.2 [facility] Comment on above: Performed By: #### C BC #### [facility] [address] [place] [address] Dr. Ruthie Richard MCV (RBC) [Entitic vol] 87.9 fL Normal 81.0-99.0 [facility] Comment on above: Performed By: #### C BC #### [facility] [address] [place] [address] Dr. Ruthie Richard MONO # 0.5 103/ul Normal 0.3-0.8 [facility] Comment on above: Performed By: #### C BC #### [facility] [address] [place] [address] Dr. Ruthie Richard Monocytes/100 WBC (Bld) 6.4 % Normal 1.7-12.0 The [facility] Comment on above: Performed By: #### C BC #### [facility] [address] [place] [address] Dr. Ruthie Richard NEUT # 4.7 103/ul Normal 1.4-6.5 The [facility] Comment on above: Performed By: #### C BC #### [facility] [address] [place] [address] Dr. Ruthie Richard Neutrophils/100 WBC (Bld) 63.9 % Normal 43.0-75.0 The [facility] Comment on above: Performed By: #### C BC #### [facility] [address] [address] [address] Ruthie Richard Platelet mean volume (Bld) [Entitic vol] 9.1 fL Critically low 9.5-13.5 [facility] Comment on above: Performed By: #### C BC #### [facility] [address] [place] [address] Dr. Ruthie Richard PLT 220 103/ul Normal 150-450 [facility] Comment on above: Performed By: #### C BC #### [facility] [address] [address] [address] Ruthie Richard RBC 5.06 106/ul Normal 4.20-5.40 [facility] Comment on above: Performed By: #### C BC #### [facility] [address] [place] [address] Dr. Ruthie Richard WBC 7.3 103/ul Normal 4.0-11.0 [facility] Comment on above: Performed By: #### C BC #### [facility] [address] [place] [address] Dr. Ruthie Richard GLYCOHEMOGLOBIN A1Con 2021 ADA RECOMMENDATION SEE BELOW Normal [facility] Comment on above: Result Comment: ADA RECOMMENDED LIMIT 4.0 - 6.0 ADA THERAPEUTIC TARGET < 7.0 ACTION SUGGESTED > 7.0 Performed By: #### A 1C #### [facility] [address] [place] [address] Dr. Ruthie Richard Glucose [Mass/Vol] 143 mg/dL Normal [facility] Comment on above: Performed By: #### A 1C #### [facility] [address] [place] [address] Dr. Ruthie Richard HbA1c (Bld) [Mass fraction] 6.6 % Critically high 4.5-6.2 [facility] Comment on above: Performed By: #### A 1C #### [facility] [address] [place] [address] Dr. Ruthie Richard LIPID PROFILEon 07-05-2022 CHOL-HDL RATIO NORM SEE BELOW Normal [facility] Comment on above: Result Comment: 3.3 - 4.4 LOW RISK 4.4 - 7.1 AVERAGE RISK 7.1 - 11.0 MODERATE RISK >11.0 HIGH RISK Performed By: #### L IPID, CMP #### [facility] [address] [address] [address] Ruthie Richard Cholesterol [Mass/Vol] 160 mg/dL Normal <=200 [facility] Comment on above: Performed By: #### L IPID, CMP #### [facility] [address] [address] [address] Ruthie Richard Cholesterol in HDL [Mass/Vol] 52 mg/dL Normal 40-60 [facility] Comment on above: Performed By: #### L IPID, CMP #### [facility] [address] [place] [address] Dr. Ruthie Richard Cholesterol in LDL [Mass/Vol] 87.0 mg/dL Normal [facility] Comment on above: Performed By: #### L IPID, CMP #### [facility] [address] [place] [address] Dr. Ruthie Richard Cholesterol.total/Cho lesterol in HDL [Mass ratio] 3.1 {ratio} Normal [facility] Comment on above: Performed By: #### L IPID, CMP #### [facility] [address] [place] [address] Dr. Ruthie Richard HDL NORMAL > or = 60 mg/dl - LO W CARDIOVASCULAR RISK <40 mg/dl - HIGH CARDIOVASCULAR RISK Normal [facility] Comment on above: Performed By: #### L IPID, CMP #### [facility] [address] [place] [address] Dr. Ruthie Richard LDL CALC NORMAL SEE BELOW Normal [facility] Comment on above: Result Comment: <100 mg/dl OPTIMAL 100 - 129 mg/dl NEAR OR ABOVE OPTIMAL 130 - 159 mg/dl BORDERLINE HIGH 160 - 189 mg/dl HIGH >190 mg/dl VERY HIGH Performed By: #### L IPID, CMP #### [facility] [address] [place] [address] Dr. Ruthie Richard Triglyceride [Mass/Vol] 105 mg/dL Normal <=150 [facility] Comment on above: Performed By: #### L IPID, CMP #### [facility] [address] [address] [address] Ruthie Richard VLDL CALC 21.0 mg/dL Normal [facility] Comment on above: Performed By: #### L IPID, CMP #### [facility] [address] [address] [address] Ruthie Richard MICROALBUMIN, RAND URon 06-23 mALB <1.3 Normal <=30.0 [facility] Comment on above: Performed By: #### M ALBR #### [facility] [address] [address] [address] Ruthie Richard PROF 14(COMP METB)on 022 Albumin [Mass/Vol] 3.6 g/dL Normal 3.4-5.0 [facility] Comment on above: Performed By: #### L IPID, CMP ####[facility] [address] [address]DrMayra Richard Albumin/Globulin [Mass ratio] 1.1 {ratio} Normal [facility] Comment on above: Performed By: #### L IPID, CMP ####[facility] [address] [address]DrMayra Richard ALP [Catalytic activity/Vol] 87 U/L Normal 46-116 [facility] Comment on above: Performed By: #### L IPID, CMP ####[facility] [address] [address]Dr. Ruthie Richard ALT [Catalytic activity/Vol] 16 U/L Normal 14-59 [facility] Comment on above: Performed By: #### L IPID, CMP ####[facility] [address] [address]DrMayra Richrad Anion gap [Moles/Vol] 11.0 mmol/L Normal [facility] Comment on above: Performed By: #### L IPID, CMP ####[facility] [address] [address]DrMayra Richard AST [Catalytic activity/Vol] 14 U/L Critically low 15-37 The [facility] Comment on above: Performed By: #### L IPID, CMP ####[facility] [address] [place], [place] [address]Dr. Lindacristy Richard Bilirubin [Mass/Vol] 0.6 mg/dL Normal 0.2-1.0 The [facility] Comment on above: Performed By: #### L IPID, CMP ####[facility] [address] [place], [place] [address]Dr. Ruthie Richard Calcium [Mass/Vol] 9.6 mg/dL Normal 8.5-10.1 The [facility] Comment on above: Performed By: #### L IPID, CMP ####[facility] [address] [place], [place] [address]Dr. Ruthie iRchard Chloride [Moles/Vol] 102 mmol/L Normal 98-107 The [facility] Comment on above: Performed By: #### L IPID, CMP ####[facility] [address] [place], [place] [address]Dr. Ruthie Richard CO2 [Moles/Vol] 27.5 mmol/L Normal 21.0-32.0 The [facility] Comment on above: Performed By: #### L IPID, CMP ####[facility] [address] [place], [place] [address]Dr. Ruthie Richard Creatinine [Mass/Vol] 0.77 mg/dL Normal 0.55-1.02 The [facility] Comment on above: Performed By: #### L IPID, CMP ####[facility] [address] [place], [place] [address]Dr. Ruthie Richard EGFR-AF PALESTINIAN >60 Normal >=60 The [facility] Comment on above: Performed By: #### L IPID, CMP ####[facility] [address] [place], [place] [address]Dr. Ruthie Richard EGFR-NON AF PALESTINIAN >60 Normal >=60 The [facility] Comment on above: Performed By: #### L IPID, CMP ####[facility] [address] [place], [place] [address]Dr. Ruthie Richard Globulin (S) [Mass/Vol] 3.4 g/dL Normal The [facility] Comment on above: Performed By: #### L IPID, CMP ####[facility] [address] [address]Dr. Ruthie Richard Glucose [Mass/Vol] 102 mg/dL Normal 74-106 The [facility] Comment on above: Performed By: #### L IPID, CMP ####[facility] [address] [place], [place] [address]Dr. Ruthie Richard Potassium [Moles/Vol] 4.5 mmol/L Normal 3.5-5.1 The [facility] Comment on above: Performed By: #### L IPID, CMP ####[facility] [address] [place], [place] [address]Dr. Ruthie Richard Protein [Mass/Vol] 7.0 g/dL Normal 6.4-8.2 The [facility] Comment on above: Performed By: #### L IPID, CMP ####[facility] [address] [place], [place] [address]Dr. Ruthie Richard Sodium [Moles/Vol] 136 mmol/L Normal 136-145 The [facility] Comment on above: Performed By: #### L IPID, CMP ####[facility] [address] [place], [place] [address]Dr. Ruthie Richard Urea nitrogen [Mass/Vol] 10.0 mg/dL Normal 7.0-18.0 The [facility] Comment on above: Performed By: #### L IPID, CMP ####[facility] [address] [place], [place] [address]Dr. Ruthie Richard Urea nitrogen/Creatinine [Mass ratio] 13.0 mg/mg Normal The [facility] Comment on above: Performed By: #### L IPID, CMP ####[facility] [address] [place], [place] [address]Dr. Ruthie Richard CBC AUTO DIFFon 02-16-2022 BASO # 0.1 103/ul Normal 0.0-0.1 The [facility] Comment on above: Performed By: #### C BC ####[facility] [address] [id number]. Ruthie Richard Basophils/100 WBC (Bld) 1.2 % Normal 0.2-2.0 The [facility] Comment on above: Performed By: #### C BC ####[facility] [address] [id number]. Ruthie Richard EO # 0.1 103/ul Normal 0.0-0.7 The [facility] Comment on above: Performed By: #### C BC ####[facility] [address] [place], [place] [address]Dr. Ruthie Richard Eosinophils/100 WBC (Bld) 2.1 % Normal 0.9-7.0 The [facility] Comment on above: Performed By: #### C BC ####[facility] [address] [place], [place] [address]Dr. Ruthie Richard Erythrocyte distribution width (RBC) [Ratio] 13.9 % Normal 11.0-15.0 The [facility] Comment on above: Performed By: #### C BC ####[facility] [address] [place], [place] [address]Dr. Ruthie Richard Hematocrit (Bld) [Volume fraction] 45.6 % Normal 36.0-48.0 The [facility] Comment on above: Performed By: #### C BC ####[facility] [address] [id number]. Ruthie Richard Hemoglobin (Bld) [Mass/Vol] 14.8 g/dL Normal 12.0-16.0 The [facility] Comment on above: Performed By: #### C BC ####[facility] [address] [place], [place] [address]Dr. Ruthie Richard IG # 0.01 10e3/ul Normal 0.00-0.03 The [facility] Comment on above: Performed By: #### C BC ####[facility] [address] [place], [place] [address]Dr. Ruthie Richard IG % 0.2 % Normal 0.0-0.5 The [facility] Comment on above: Performed By: #### C BC ####[facility] [address] [id number]. Ruthie Richard LYMPH # 1.6 103/ul Normal 1.2-3.8 The [facility] Comment on above: Performed By: #### C BC ####[facility] [address] [id number]. Ruthie Jose Manuel Lymphocytes/100 WBC (Bld) 27.1 % Normal 20.5-60.0 The [facility] Comment on above: Performed By: #### C BC ####[facility] [address] [phone]. Lindacristy Richard MANUAL DIFF REQ NO Normal [facility] Comment on above: Performed By: #### C BC ####[facility] [address] [address]Dr. Ruthie Jose Manuel MCH (RBC) [Entitic mass] 29.6 pg Normal 26.7-34.0 The [facility] Comment on above: Performed By: #### C BC ####[facility] [address] [address]Dr. Ruthie Richard MCHC (RBC) [Mass/Vol] 32.5 g/dL Normal 29.9-35.2 The [facility] Comment on above: Performed By: #### C BC ####[facility] [address] [id number]. Ruthie Jose Manuel MCV (RBC) [Entitic vol] 91.2 fL Normal 81.0-99.0 The [facility] Comment on above: Performed By: #### C BC ####[facility] [address] [phone]. Ruthie Jose Manuel MONO # 0.4 103/ul Normal 0.3-0.8 The [facility] Comment on above: Performed By: #### C BC ####[facility] [address] [id number]. Lindacristy Richard Monocytes/100 WBC (Bld) 7.3 % Normal 1.7-12.0 The [facility] Comment on above: Performed By: #### C BC ####[facility] [address] [id number]. Ruthie Richard NEUT # 3.6 103/ul Normal 1.4-6.5 The [facility] Comment on above: Performed By: #### C BC ####[facility] [address] [phone]. Ruthie Richard Neutrophils/100 WBC (Bld) 62.1 % Normal 43.0-75.0 The [facility] Comment on above: Performed By: #### C BC ####[facility] [address] [phone]. Ruthie Richard Platelet mean volume (Bld) [Entitic vol] 9.4 fL Critically low 9.5-13.5 The [facility] Comment on above: Performed By: #### C BC ####[facility] [address] [id number]. Ruthie Jose Manuel PLT 227 103/ul Normal 150-450 The [facility] Comment on above: Performed By: #### C BC ####[facility] [address] [phone]. Ruthie Richard RBC 5.00 106/ul Normal 4.20-5.40 The [facility] Comment on above: Performed By: #### C BC ####[facility] [address] [phone]. Ruthie Richard WBC 5.8 103/ul Normal 4.0-11.0 The [facility] Comment on above: Performed By: #### C BC ####[facility] [address] [address]Dr. Ruthie Richard PROF 14(COMP METB)on 022 Albumin [Mass/Vol] 3.7 g/dL Normal 3.4-5.0 The [facility] Comment on above: Performed By: #### C MP ####[facility] [address] [id number]. Ruthie Jose Manuel Albumin/Globulin [Mass ratio] 1.2 {ratio} Normal [facility] Comment on above: Performed By: #### C MP ####[facility] [address] [phone]. Ruthie Richard ALP [Catalytic activity/Vol] 81 U/L Normal 46-116 The [facility] Comment on above: Performed By: #### C MP ####[facility] [address] [phone]. Ruthie Richard ALT [Catalytic activity/Vol] 31 U/L Normal 14-59 The [facility] Comment on above: Performed By: #### C MP ####[facility] [address] [address]Dr. Ruthie iRchard Anion gap [Moles/Vol] 11.5 mmol/L Normal Th e [facility] Comment on above: Performed By: #### C MP ####[facility] [address] [address]Dr. Ruthie Richard AST [Catalytic activity/Vol] 18 U/L Normal 15-37 The [facility] Comment on above: Performed By: #### C MP ####[facility] [address] [address]Dr. Ruthie Richard Bilirubin [Mass/Vol] 0.5 mg/dL Normal 0.2-1.0 The [facility] Comment on above: Performed By: #### C MP ####[facility] [address] [address]Dr. Ruthie Richard Calcium [Mass/Vol] 9.3 mg/dL Normal 8.5-10.1 The [facility] Comment on above: Performed By: #### C MP ####[facility] [address] [address]Dr. Ruthie Richard Chloride [Moles/Vol] 106 mmol/L Normal 98-107 The [facility] Comment on above: Performed By: #### C MP ####[facility] [address] [address]Dr. Ruthie Richard CO2 [Moles/Vol] 29.8 mmol/L Normal 21.0-32.0 The [facility] Comment on above: Performed By: #### C MP ####[facility] [address] [place], [place] [address]Dr. Ruthie Jose Manuel Creatinine [Mass/Vol] 0.76 mg/dL Normal 0.55-1.02 [facility] Comment on above: Performed By: #### C MP ####[facility] [address] [place], [place] [address]Dr. Ruthie Jose Manuel EGFR-AF PALESTINIAN >60 Normal >=60 [facility] Comment on above: Performed By: #### C MP ####[facility] [address] [place], [place] [address]Dr. Ruthie Jose Manuel EGFR-NON AF PALESTINIAN >60 Normal >=60 The [facility] Comment on above: Performed By: #### C MP ####[facility] [address] [place], [place] [address]Dr. Ruthie Richard Globulin (S) [Mass/Vol] 3.2 g/dL Normal [facility] Comment on above: Performed By: #### C MP ####[facility] [address] [place], [place] [address]Dr. Lindacristy Jose Manuel Glucose [Mass/Vol] 135 mg/dL Critically high 74-106 [facility] Comment on above: Performed By: #### C MP ####[facility] [address] [place], [place] [address]Dr. Ruthie Richard Potassium [Moles/Vol] 5.3 mmol/L Critically high 3.5-5.1 [facility] Comment on above: Performed By: #### C MP ####[facility] [address] [place], [place] [address]Dr. Ruthie Richard Protein [Mass/Vol] 6.9 g/dL Normal 6.4-8.2 The [facility] Comment on above: Performed By: #### C MP ####[facility] [address] [place], [place] [address]Dr. Ruthie Richard Sodium [Moles/Vol] 142 mmol/L Normal 136-145 [facility] Comment on above: Performed By: #### C MP ####[facility] [address] [place], [place] [address]Dr. Ruthie Richard Urea nitrogen [Mass/Vol] 13.0 mg/dL Normal 7.0-18.0 [facility] Comment on above: Performed By: #### C MP ####[facility] [address] [address]Dr. Ruthie Richard Urea nitrogen/Creatinine [Mass ratio] 17.1 mg/mg Normal [facility] Comment on above: Performed By: #### C MP ####[facility] [address] [phone]. Ruthie Richard SED RATE WESTERGRENon 2021 SED RATE 14 mm/hr Normal <=30 [facility] Comment on above: Performed By: #### S EDR ####[facility] [address] [address]Dr. Ruthie Richard GLYCOHEMOGLOBIN A1Con 2021 ADA RECOMMENDATION SEE BELOW Normal [facility] Comment on above: Result Comment: ADA RECOMMENDED LIMIT 4.0 - 6.0 ADA THERAPEUTIC TARGET < 7.0 ACTION SUGGESTED > 7.0 Performed By: #### A 1C #### [facility] [address] [address] [address] Ruthie Richard Glucose [Mass/Vol] 203 mg/dL Normal [facility] Comment on above: Performed By: #### A 1C #### [facility] [address] [place] [address] Dr. Ruthie Richard HbA1c (Bld) [Mass fraction] 8.7 % Critically high 4.5-6.2 [facility] Comment on above: Performed By: #### A 1C #### [facility] [address] [address] [address] Ruthie Richard PROF CHEM 8 (BAS METB)on Anion gap [Moles/Vol] 11.2 mmol/L Normal [facility] Comment on above: Performed By: #### B MP #### [facility] [address] [address] [address] Ruthie Richard Calcium [Mass/Vol] 8.8 mg/dL Normal 8.5-10.1 [facility] Comment on above: Performed By: #### B MP #### [facility] [address] [address] [address] Ruthie Richard Chloride [Moles/Vol] 105 mmol/L Normal 98-107 [facility] Comment on above: Performed By: #### B MP #### [facility] [address] [address] [address] Ruthie Richard CO2 [Moles/Vol] 29.6 mmol/L Normal 21.0-32.0 [facility] Comment on above: Performed By: #### B MP #### [facility] [address] [address] [address] Ruthie Richard Creatinine [Mass/Vol] 0.82 mg/dL Normal 0.55-1.02 [facility] Comment on above: Performed By: #### B MP #### [facility] [address] [place] [address] Dr. Ruthie Richard EGFR-AF PALESTINIAN >60 Normal >=60 [facility] Comment on above: Performed By: #### B MP #### [facility] [address] [place] [address] Dr. Ruthie Richard EGFR-NON AF PALESTINIAN >60 Normal >=60 [facility] Comment on above: Performed By: #### B MP #### [facility] [address] [place] [address] Dr. Ruthie Richard Glucose [Mass/Vol] 198 mg/dL Critically high 74-106 [facility] Comment on above: Performed By: #### B MP #### [facility] [address] [address] [address] Ruthie Richard Potassium [Moles/Vol] 3.8 mmol/L Normal 3.5-5.1 [facility] Comment on above: Performed By: #### B MP #### [facility] [address] [place] [address] Dr. Ruthie Richard Sodium [Moles/Vol] 142 mmol/L Normal 136-145 [facility] Comment on above: Performed By: #### B MP #### [facility] [address] [place] [address] Dr. Ruthie Richard Urea nitrogen [Mass/Vol] 9.0 mg/dL Normal 7.0-18.0 [facility] Comment on above: Performed By: #### B MP #### [facility] [address] [place] [address] Dr. Ruthie Richard Urea nitrogen/Creatinine [Mass ratio] 11.0 mg/mg Normal [facility] Comment on above: Performed By: #### B MP #### [facility] [address] [address] [address] Ruthie Richard CBC AUTO DIFFon 11-06-2021 BASO # 0.1 103/ul Normal 0.0-0.1 [facility] Comment on above: Performed By: #### C BC ####[facility] [address] [address]Dr. Ruthie Richard Basophils/100 WBC (Bld) 0.6 % Normal 0.2-2.0 [facility] Comment on above: Performed By: #### C BC ####[facility] [address] [place], [place] [address]Dr. Ruthie Richard EO # 0.2 103/ul Normal 0.0-0.7 [facility] Comment on above: Performed By: #### C BC ####[facility] [address] [place], [place] [address]Dr. Ruthie Richard Eosinophils/100 WBC (Bld) 1.4 % Normal 0.9-7.0 [facility] Comment on above: Performed By: #### C BC ####[facility] [address] [address]DrMayra Richard Erythrocyte distribution width (RBC) [Ratio] 13.7 % Normal 11.0-15.0 [facility] Comment on above: Performed By: #### C BC ####[facility] [address] [place], [place] [address]DrMayra Richard Hematocrit (Bld) [Volume fraction] 45.3 % Normal 36.0-48.0 [facility] Comment on above: Performed By: #### C BC ####[facility] [address] [address]Dr. Ruthie Richard Hemoglobin (Bld) [Mass/Vol] 15.0 g/dL Normal 12.0-16.0 [facility] Comment on above: Performed By: #### C BC ####[facility] [address] [address]Dr. Ruthie Richard IG # 0.14 10e3/ul Critically high 0.00-0.03 [facility] Comment on above: Performed By: #### C BC ####[facility] [address] [address]Dr. Ruthie Richard IG % 1.3 % Critically high 0.0-0.5 [facility] Comment on above: Performed By: #### C BC ####[facility] [address] [place], [place] [address]Dr. Ruthie Richard LYMPH # 3.0 103/ul Normal 1.2-3.8 [facility] Comment on above: Performed By: #### C BC ####[facility] [address] [place], [place] [address]Dr. Ruthie Richard Lymphocytes/100 WBC (Bld) 26.4 % Normal 20.5-60.0 [facility] Comment on above: Performed By: #### C BC ####[facility] [address] [address]Dr. Ruthie Richard MANUAL DIFF REQ NO Normal [facility] Comment on above: Performed By: #### C BC ####[facility] [address] [place], [place] [address]Dr. Ruthie Richard MCH (RBC) [Entitic mass] 29.6 pg Normal 26.7-34.0 [facility] Comment on above: Performed By: #### C BC ####[facility] [address] [place], [place] [address]Dr. Ruthie Jose Manuel MCHC (RBC) [Mass/Vol] 33.1 g/dL Normal 29.9-35.2 [facility] Comment on above: Performed By: #### C BC ####[facility] [address] [place], [place] [address]DrMayra Richard MCV (RBC) [Entitic vol] 89.5 fL Normal 81.0-99.0 [facility] Comment on above: Performed By: #### C BC ####[facility] [address] [address]Dr. Lindacristy Jose Manuel MONO # 0.9 103/ul Critically high 0.3-0.8 The [facility] Comment on above: Performed By: #### C BC ####[facility] [address] [place], [place] [address]Dr. Ruthie Richard Monocytes/100 WBC (Bld) 7.6 % Normal 1.7-12.0 [facility] Comment on above: Performed By: #### C BC ####[facility] [address] [place], [place] [address]Dr. Ruthie Richard NEUT # 7.0 103/ul Critically high 1.4-6.5 The [facility] Comment on above: Performed By: #### C BC ####[facility] [address] [place], [place] [address]Dr. Ruthie Richard Neutrophils/100 WBC (Bld) 62.7 % Normal 43.0-75.0 The [facility] Comment on above: Performed By: #### C BC ####[facility] [address] [place], [place] [address]Dr. Ruthie Richard Platelet mean volume (Bld) [Entitic vol] 9.8 fL Normal 9.5-13.5 The [facility] Comment on above: Performed By: #### C BC ####[facility] [address] [place], [place] [address]Dr. Ruthie Richard PLT 268 103/ul Normal 150-450 [facility] Comment on above: Performed By: #### C BC ####[facility] [address] [place], [place] [address]Dr. Ruthie Richard RBC 5.06 106/ul Normal 4.20-5.40 [facility] Comment on above: Performed By: #### C BC ####[facility] [address] [place], [place] [address]Dr. Ruthie Richard WBC 11.2 103/ul Critically high 4.0-11.0 [facility] Comment on above: Performed By: #### C BC ####[facility] [address] [address]Dr. Ruthie Richard D-DIMERon 11-06-2021 D-DIMER 0.32 mg/L FEU Normal 0.19-0.50 [facility] Comment on above: Performed By: #### D DIM #### [facility] [address] [address] [address] Ruthie Richard D-DIMER COMMENTS SEE BELOW Normal [facility] Comment on above: Result Comment: Incr eases in D-Dimer concentration observed with thromboembolic events can be variable due to localization, size, and age of the thrombus. Therefore, a thromboembolic event cannot be diagnosed with certainty on the basis of the reference range. D-Dimers may also be elevated for a variety of disorders including: advanced age, , coronary disease, cancer, liver disease, infection, inflammation, hematoma, DIC, trauma, post-surgery, diabetes, thrombolytic or anticoagulant therapy, stress, and generalized hospitalization. Performed By: #### D DIM #### [facility] [address] [address] [address] Ruthie Richard PROF CHEM 8 (BAS METB)on Anion gap [Moles/Vol] 12.5 mmol/L Normal Th [facility] Comment on above: Performed By: #### B MP #### [facility] [address] [place] [address] Dr. Ruthie Richard Calcium [Mass/Vol] 9.1 mg/dL Normal 8.5-10.1 [facility] Comment on above: Performed By: #### B MP #### [facility] [address] [address] [address] Ruthie Rcihard Chloride [Moles/Vol] 97 mmol/L Critically low 98-107 [facility] Comment on above: Performed By: #### B MP #### [facility] [address] [address] [address] Ruthie Richard CO2 [Moles/Vol] 30.7 mmol/L Critically high 22.0-30.0 [facility] Comment on above: Performed By: #### B MP #### [facility] [address] [address] [address] Ruthie Richard Creatinine [Mass/Vol] 1.00 mg/dL Normal 0.52-1.04 [facility] Comment on above: Performed By: #### B MP #### [facility] [address] [address] [address] Ruthie Richard EGFR-AF PALESTINIAN >60 Normal >=60 [facility] Comment on above: Performed By: #### B MP #### [facility] [address] [address] [address] Ruthie Richard EGFR-NON AF PALESTINIAN 56 mL/min/1.73m2 Critically low >=60 [facility] Comment on above: Performed By: #### B MP #### [facility] [address] [address] [address] Ruthie Richard Glucose [Mass/Vol] 407 mg/dL Critically high 74-106 [facility] Comment on above: Performed By: #### B MP #### [facility] [address] [address] [address] Ruthie Richard Potassium [Moles/Vol] 4.2 mmol/L Normal 3.4-5.0 [facility] Comment on above: Performed By: #### B MP #### [facility] [address] [address] [address] Ruthie Richard Sodium [Moles/Vol] 136 mmol/L Critically low 137-[address] [facility] Comment on above: Performed By: #### B MP #### [facility] [address] [address] [address] Ruthie Richard Urea nitrogen [Mass/Vol] 23.0 mg/dL Critically high 7.0-18.0 [facility] Comment on above: Performed By: #### B MP #### [facility] [address] [address] [address] Ruthie Richard Urea nitrogen/Creatinine [Mass ratio] 23.0 mg/mg Normal [facility] Comment on above: Performed By: #### B #### [facility] [address] [address] [address] Ruthie Richard XR CHEST 1 11-06-2021 XR CHEST 1 V EXAM: XR CHEST 1 V, 11/06/2021 HISTORY: COUGH COMPARISON: Previous x-ray from 11/02/2021 TECHNIQUE: Portable AP upright x-ray of the chest. FINDINGS: Heart size within normal limits. No hilar or mediastinal enlargement. Lungs are clear. Unremarkable costophrenic angles. Postsurgical changes left shoulder. No significant interval change. IMPRESSION: No acute cardiopulmonary findings or significant interval change. Electronically authenticated by: MARGE CAGLE Date: 2021-11-06 18:12 Normal [facility] XR CHEST 1 11-02-2021 XR CHEST 1 V EXAMINATION: XR CHES T 1 V HISTORY: SHORTNESS OF BREATH , fever, cough, allergic reaction COMPARISON: XR chest 09/12/2019 FINDINGS: LUNGS: No significant pulmonary parenchymal abnormalities. VASCULATURE: No increased pulmonary vasculature. PLEURA: No pneumothorax, effusion, or pleural thickening. CARDIAC: No cardiomegaly or cardiac silhouette abnormality. MEDIASTINUM: No visible mass or adenopathy. BONES: No fracture or visible bone lesion. OTHER: Negative. IMPRESSION: 1. No acute cardiopulmonary process. Electronically authenticated by: MIRIAM NEAL Date: 2021-11-02 13:19 Normal [facility] Vital Signs Date Time Vital Sign Value Performing Clinician Frandy huddleston 05-10-2023 12:08-0400 Body weight 75.75 kg Harish Marshall MD Work Phone: [facility] 05-10-2023 12:08-0400 Diastolic blood pressure 66 mm[Hg] Harish Marshall MD Work Phone: [facility] 05-10-2023 12:08-0400 Heart rate 77 /min Harish Marshall MD Work Phone: [facility] 05-10-2023 12:08-0400 Systolic blood pressure 122 mm[Hg] Harish Marshall MD Work Phone: [facility] 02-08-2023 12:40-0400 Body weight 78.02 kg Harish Marshall MD Work Phone: [facility] 02-08-2023 12:40-0400 Diastolic blood pressure 62 mm[Hg] Harish Marshall MD Work Phone: [facility] 02-08-2023 12:40-0400 Heart rate 66 /min Harish Marshall MD Work Phone: [facility] 02-08-2023 12:40-0400 Systolic blood pressure 128 mm[Hg] Harish Marshall MD Work Phone: [facility] 11-09-2022 13:10-0400 Body height 170.2 cm Harish Marshall MD Work Phone: [facility] 11-09-2022 13:10-0400 Body weight 80.74 kg Harish Marshall MD Work Phone: [facility] 11-09-2022 13:10-0400 Diastolic blood pressure 65 mm[Hg] Harish Marshall MD Work Phone: [facility] 11-09-2022 13:10-0400 Heart rate 86 /min Harish Marshall MD Work Phone: [facility] 11-09-2022 13:10-0400 SaO2% (BldA) [Mass fraction] 94 % Harish Marshall MD Work Phone: [facility] 11-09-2022 13:10-0400 Systolic blood pressure 118 mm[Hg] Harish Marshall MD Work Phone: [facility] 07-07-2022 08:53-0500 Diastolic blood pressure 68 mm[Hg] MD Aleksander Jimenez Work Phone: [facility] 07-07-2022 08:53-0500 Heart rate 60 /min MD Aleksander Jimenez Work Phone: [facility] 07-07-2022 08:53-0500 Respiratory rate 16 /min MD Aleksander Jimenez Work Phone: [facility] 07-07-2022 08:53-0500 SaO2% (BldA) [Mass fraction] 92 % MD Aleksander Jimenez Work Phone: [facility] 07-07-2022 08:53-0500 Systolic blood pressure 117 mm[Hg] MD Aleksander Jimenez Work Phone: [facility] 07-07-2022 07:51-0500 Body height 170.18 cm MD Aleksander Jimenez Work Phone: [facility] 07-07-2022 07:51-0500 Body mass index (BMI) [Ratio] 27.9 kg/m2 MD Aleksander Jimenez Work Phone: [facility] 07-07-2022 07:51-0500 Body weight 81 kg MD Aleksander Jimenez Work Phone: [facility] 07-07-2022 05:57-0500 Body temperature 97.7 [degF] MD Aleksander Jimenez Work Phone: [facility] Encounters Encounter Date Encounter Type Care Provider Facility Start: 09-15-2023 End: 09-16-2023 ambulatory Silvia L Faith Facility:[facility] Start: 09-15-2023 End: 09-16-2023 ambulatory Silvia L Faith [facility]: [facility] Start: 09-15-2023 End: 09-15-2023 Lab Drop off Silvia L Faith [facility] Start: 09-11-2023 End: 09-12-2023 ambulatory JEANINE VAZQUEZ Facility: [facility] Start: 08-16-2023 End: 08-17-2023 ambulatory HARISH JOANNA Facility:[facility] Start: 07-19-2023 End: 07-20-2023 ambulatory Silvia L Faith Facility: [facility] Start: 07-11-2023 End: 07-12-2023 ambulatory Silvia L Faith Facility:[facility] [facility] Start: 07-10-2023 End: 07-11-2023 ambulatory Julee De Los Santos Facility:[facility] Start: 05-10-2023 End: 05-11-2023 ambulatory Mercedes A Radman RT(R) Radiology Comment on above: Radiology XR Start: 05-10-2023 Patient encounter procedure Mercedes A Radman RT(R) [facility] Start: 05-10-2023 End: 05-10-2023 Subsequent hospital visit by physician Xr [facility] Comment on above: Thoracic back pain, unspecified back pain laterality, unspecified chronicity [M54.6] Start: 05-10-2023 End: 05-10-2023 Office outpatient visit 25 minutes Harish Marshall MD Work Phone: Rheumatology Comment on above: Rheumatoid arthritis involving multiple sites with positive rheumatoid factor (HCC) (Primary Dx); Encounter for long-term (current) use of medications; Thoracic back pain, unspecified back pain laterality, unspecified chronicity Start: 04-10-2023 End: 04-11-2023 ambulatory Julee De Los Santos Facility:[facility] Start: 02-08-2023 End: 02-09-2023 ambulatory HARISH MARSHALL Facility:[facility] Start: 02-08-2023 End: 02-08-2023 Office outpatient visit 25 minutes Harish Marshall MD Work Phone: Rheumatology Comment on above: Rheumatoid arthritis involving multiple sites with positive rheumatoid factor (HCC) (Primary Dx); Encounter for long-term (current) use of medications Start: 01-09-2023 End: 01-10-2023 ambulatory Julee De Los Santos Facility:[facility] Start: 01-09-2023 End: 01-09-2023 Lab Drop off Julee De Los Santos [facility] Start: 11-09-2022 End: 11-10-2022 ambulatory Mercedes Dominguez Radman RT(R) Radiology Comment on above: Radiology XR Start: 11-09-2022 Patient encounter procedure Mercedes A Radman RT(R) [facility] Start: 11-09-2022 End: 11-09-2022 Office outpatient new 60 minutes Harish Marshall MD Work Phone: Rheumatology Comment on above: Rheumatoid arthritis involving multiple sites with positive rheumatoid factor (HCC) (Primary Dx) Start: 09-28-2022 End: 09-29-[address] ALEKSANDER JIMENEZ . Facility:[facility] Start: 09-13-2022 End: 09-14-[address] ALEKSANDER JIMENEZ . Facility:[facility] Start: 07-07-2022 End: 07-07-2022 ambulatory Aleksander Jimenez Facility:[facility] Start: 07-07-2022 End: 07-07-2022 Admission to same day surgery center MD Aleksander Jimenez Work Phone: [facility] [place] Start: 07-07-2022 End: 07-07-2022 ambulatory MD Aleksander Jimenez Work Phone: [facility] Work Phone: Start: 07-05-2022 End: 07-06-[address] ALEKSANDER JIMENEZ . Facility:[facility] Start: 06-24-2022 End: 06-24-2022 ambulatory Aleksander Jimenez Facility:[facility] Start: 06-24-2022 End: 06-24-2022 ambulatory MD Aleksander Jimenez Work Phone: [facility] Work Phone: Start: 06-24-2022 End: 06-24-2022 Departed Referred MD Aleksander Jimenez Work Phone: [facility] Start: 06-24-2022 End: 06-24-2022 Patient encounter procedure MD Aleksander Jimenez Work Phone: [facility] Mgx-Gts-Qfkqfqgk Testing Start: 02-16-2022 End: 02-17-[address] DOCTOR BECKETT Facility:[facility] Start: 12-28-2021 End: 12-29-[address] ALEKSANDER JIMENEZ . Facility:[facility] Start: 11-06-2021 End: 11-06-[address] MADISON RIVAS Facility:[facility] Start: 11-02-2021 End: 11-02-[address] MADISON RIVAS Facility:[facility] Procedures Date Procedure Procedure Detail Performing Clinician Start: 05-10-2023 Radex spine thoracic 3 views Harish Marshall MD Work Phone: Start: 07-07-2022 Phacoemulsification of cataract with intraocular lens implantation MD Aleksander Jimenez Work Phone: Start: 07-27-2010 Lipid 1996 panel - S stephan or Plasma Harish Marshall MD Work Phone: Bilateral cataracts (disorder) Julee De Los Santos Cardiac catheter (ph ysical object) Julee De Los Santos Colonoscopy Julee De Los Santos Comment on above: 2014, 2020 Decompression of median nerve Julee De Los Santos Tooth extraction Silvia Cuevas Comment on above: 7 of them Total abdominal hyst erectomy with bilateral salpingo-oophorectomy Julee De Los Santos Plan of Treatment Date Care Activity Detail Author Start: 11-09-2025 DIABETES SCREEN DIABETES SCREEN [facility] Start: 11-09-2025 Diabetes Screening Diabetes Screenin g [facility] Start: 03-24-2023 Covid-19 Vaccine ( season) Covid-19 Vaccine ( season) [facility] Start: 03-24-2023 Influenza vaccination C [facility] Start: 02-08-2023 End: 04-10-2023 Alanine aminotransferase [Enzymatic activity/volume] in Serum or Plasma [facility] Work Phone: Comment on above: Expected: 02/08/2023 , Expires: 04/10/2023 Start: 02-08-2023 End: 04-10-2023 Albumin [Mass/volume] in Serum or Plasma [facility] Work Phone: Comment on above: Expected: 02/08/2023 , Expires: 04/10/2023 Start: 02-08-2023 End: 04-10-2023 Aspartate aminotransferase [Enzymatic activity/volume] in Serum or Plasma [facility] Work Phone: Comment on above: Expected: 02/08/2023 , Expires: 04/10/2023 Start: 02-08-2023 End: 04-10-2023 CREATININE BLD [facility] Work Phone: Comment on above: Expected: 02/08/2023 , Expires: 04/10/2023 Start: 11-09-2022 End: 01-09-2023 25-hydroxyvitamin D3 [Mass/volume] in Serum or Plasma [facility] Work Phone: Comment on above: Expected: 11/09/2022 , Expires: 01/09/2023 Start: 11-09-2022 End: 01-09-2023 BLOOD TB SCREEN [facility] Work Phone: Comment on above: Expected: 11/09/2022 , Expires: 01/09/2023 Start: 11-09-2022 End: 01-09-2023 C reactive protein [Mass/volume] in Serum or Plasma [facility] Work Phone: Comment on above: Expected: 11/09/2022 , Expires: 01/09/2023 Start: 11-09-2022 End: 01-09-2023 Comprehensive metabolic 2000 panel - Serum or Plasma [facility] Work Phone: Comment on above: Expected: 11/09/2022 , Expires: 01/09/2023 Start: 11-09-2022 End: 01-09-2023 Cyclic citrullinated peptide IgG Ab [Units/volume] in Serum or Plasma [facility] Work Phone: Comment on above: Expected: 11/09/2022 , Expires: 01/09/2023 Start: 11-09-2022 End: 01-09-2023 Hepatitis B virus core Ab [Presence] in Serum [facility] Work Phone: Comment on above: Expected: 11/09/2022 , Expires: 01/09/2023 Start: 11-09-2022 End: 01-09-2023 Hepatitis B virus surface Ab [Presence] in Serum [facility] Work Phone: Comment on above: Expected: 11/09/2022 , Expires: 01/09/2023 Start: 11-09-2022 End: 01-09-2023 Hepatitis B virus surface Ag [Presence] in Serum [facility] Work Phone: Comment on above: Expected: 11/09/2022 , Expires: 01/09/2023 Start: 11-09-2022 End: 01-09-2023 Hepatitis C virus Ab [Presence] in Serum [facility] Work Phone: Comment on above: Expected: 11/09/2022 , Expires: 01/09/2023 Start: 11-09-2022 End: 01-09-2023 Rheumatoid factor [Units/volume] in Serum or Plasma [facility] Work Phone: Comment on above: Expected: 11/09/2022 , Expires: 01/09/2023 Start: 07-24-2022 ADVANCE DIRECTIVE DISCUSSION ADVANCE DIRECTIVE DISCUSSION [facility] Start: 07-24-2022 DEPRESSION ASSESSMENT DEPRESSION ASS ESSMENT [facility] Start: 07-07-2022 End: 07-07-2022 [facility] Start: 2022 BONE DENSITY BONE DENSITY [facility] Start: 2022 Bone Density Screening Bone Density Screening [facility] Start: 05-10-2021 DIABETES SCREEN DIABETES SCREEN [facility] Start: 2017 RSV Vaccine (1 - 1-d ose 60+ series) RSV Vaccine (1 - 1-dose 60+ series) [facility] Start: 04-24-2016 Pneumococcal Vaccine : 65+ (2 - PCV) Pneumococcal Vaccine: 65+ (2 - PCV) [facility] Start: 07-27-2015 Lipid 1996 panel - S stephan or Plasma Lipid Screening [facility] Start: 07-27-2015 LIPID SCREEN LIPID SCREEN [facility] Start: 2007 Influenza vaccination LUNG CANCER SC REENING [facility] Start: 2002 COLOGUARD (FIT-DNA) COLOGUARD (FIT-D NA) [facility] Start: 2002 Colonoscopy COLONOSCOPY [facility] Start: 2002 COLORECTAL CANCER SCREENING COLORECTAL CANCER SCREENING [facility] Start: [address] COLONOGRAPHY [facility] Start: 2002 FECAL OCCULT BLOOD FECAL OCCULT BLOO D [facility] Start: 2002 SIGMOIDOSCOPY SIGMOIDOSCOPY [facility] Start: 1997 Mammography [facility] Start: 1976 SHINGRIX VACCINE (1 of 2) PHILLIPS GRIX VACCINE (1 of 2) [facility] Start: 1976 Urine microalbumin profile [facility] Start: 1975 HIV SCREENING HIV SCREENING [facility] Start: 1963 PNEUMOCOCCAL: 65+ (1 - PCV) PNEUMOCOCCAL: 65+ (1 - PCV) [facility] End: 12-10-2023 XR FOOT GENERAL 3V AP/LAT/OBL BILATERAL XR FOOT GENERAL 3V AP/LAT/OBL BILATERAL Radiology Routine Rheumatoid arthritis involving multiple sites with positive rheumatoid factor (HCC) 1 Occurrences starting 11/09/2022 until 12/10/2023 [facility] Work Phone: Comment on above: 1 Occurrences starti ng 11/09/2022 until 12/10/2023 XR FOOT GENERAL 3V AP/LAT/OBL BILATERAL XR FOOT GENERAL 3V AP/LAT/OBL BILATERAL Radiology Routine Rheumatoid arthritis involving multiple sites with positive rheumatoid factor (HCC) 11/09/2022 3:01 PM EDT [facility] Work Phone: End: 12-10-2023 XR HAND GENERAL 3V PA/LAT/OBL BILATERAL XR HAND GENERAL 3V PA/LAT/OBL BILATERAL Radiology Routine Rheumatoid arthritis involving multiple sites with positive rheumatoid factor (HCC) 1 Occurrences starting 11/09/2022 until 12/10/2023 [facility] Work Phone: Comment on above: 1 Occurrences starti ng 11/09/2022 until 12/10/2023 XR HAND GENERAL 3V PA/LAT/OBL BILATERAL XR HAND GENERAL 3V PA/LAT/OBL BILATERAL Radiology Routine Rheumatoid arthritis involving multiple sites with positive rheumatoid factor (HCC) 11/09/2022 3:01 PM EDT [facility] Work Phone: [facility] Immunizations Immunization Date Immunization Notes Care Provider [facility] 07-04-2023 influenza virus vaccine, unspecified formulation Silvia Cuevas [facility] 08-10-2022 SARS-CoV-2 (COVID-19 ) [id number] Julee De Los Santos [facility] 05-13-2022 influenza virus vaccine, unspecified formulation Julee De Los Santos [facility] 12-15-2021 SARS-CoV-2 (COVID-19 ) mRNA-1273 vaccine Julee De Los Santos [facility] Comment on above: Result Comment: 2022: [id number] 08-13-2021 zoster vaccine recombinant Julee De Los Santos [facility] 05-20-2021 SARS-CoV-2 (COVID-19 ) mRNA-1273 vaccine Julee De Los Santos [facility] Comment on above: Result Comment: 2022: TPV39 04-30-2021 zoster vaccine recombinant Julee De Los Santos [facility] 04-28-2021 influenza virus vaccine, unspecified formulation Julee De Los Santos [facility] 11-11-2020 SARS-CoV-2 (COVID-19 ) mRNA-1273 vaccine Julee De Los Santos [facility] 10-29-2020 SARS-CoV-2 (COVID-19 ) mRNA-1273 vaccine Julee De Los Santos [facility] Comment on above: Result Comment: 2022: TPV60 10-01-2020 SARS-CoV-2 (COVID-19 ) mRNA-1273 vaccine Julee De Los Santos [facility] Comment on above: Result Comment: 2022: TPV60 06-06-2017 influenza virus vaccine, unspecified formulation Julee De Los Santos [facility] 04-24-2015 pneumococcal polysaccharide vaccine, 23 valent Julee De Los Santos [facility] NEGATED: Highlighted row has not occurred!04-10-2023 influenza virus vaccine, unspecified formulation Silvia Gamezab [facility] Payers Date Payer Category Payer Self-pay [id number] 2022 Medicare [employer] [facility] [id number] 2022-Present [phone] [address] [place] [address] [facility] [id number] 2018 Medicaid MEDICAID [facility] MEDICAID [id number] 2018-Present [phone] [address] [place] [address] Medicaid [id number] 1959 Medicaid [id number] 1959 Medicare [id number] 1959 Medicare [id number] 1957 Unknown [id number] 1957 Unknown [id number] 2.16.840.1.710639.3.579.2.593 1957 Unknown [id number] 2.16.840.1.401989.3.579.2.593 1957 Unknown [id number] 2.16.840.1.594391.3.579.2.593 1957 Unknown [id number] 2.16.840.1.972733.3.579.2.593 1957 Unknown [id number] 2.16.840.1.343895.3.579.2.593 1957 Unknown [id number] 2.16.840.1.954973.3.579.2.593 1957 Unknown [id number] 2.16.840.1.335158.3.579.2.727 1957 Unknown [id number] 2.16.840.1.044144.3.579.2.727 1957 Unknown [id number] 2.16.840.1.219129.3.579.2.727 1957 Unknown [id number] 2.16.840.1.434702.3.579.2.727 1957 Unknown [id number] 2.16.840.1.135551.3.579.2.727 1957 Unknown [id number] 2.16.840.1.888372.3.579.2.727 1957 Unknown [id number] 2.16.840.1.990067.3.579.2.727 1957 Unknown [id number] 2.16.840.1.440847.3.579.2.727 1957 Unknown [id number] 2.16.840.1.644955.3.579.2.727 1957 Unknown [id number] 2.16.840.1.610960.3.579.2.727 1957 Unknown [id number] 2.16.840.1.951415.3.579.2.72 1957 Unknown [id number] 2.16.840.1.427303.3.579.2.727 Medicaid [employer] [id number] Unknown [id number] [id number]1 Unknown [id number] 2..[id number] Social History Date Type Detail Facility Start: 06-24-2022 End: 09-15-2023 Tobacco smoking status NHIS Ex-smoker (finding) [facility] Comment on above: denies use Start: 1955 Sex Assigned At Female [place] [facility] End: 07-24-2015 History of tobacco use Current smoker [facility] End: 07-24-2015 History of tobacco use Cigarette Smoker [facility] Start: 11-09-2022 End: 02-08-2023 Cigarettes smoked current (pack per day) - Reported 0.8 [facility] Start: 11-09-2022 Tobacco use and exposure Smokeless tobacco non-user [facility] Start: 11-09-2022 End: 05-10-2023 Alcohol intake Current non-drinker of alcohol (finding) [facility] Start: 11-09-2022 Tobacco Comment active smoker for about 40 years about 1 pk per day; quit 2015 [facility] Start: 1955 Sex Assigned At Not on file [facility] Tobacco smoking status Never Vanesa Rios [facility] Comment on above: denies use Start: 11-09-2022 End: 02-08-2023 Sex Assigned At Female [facility] Medical Equipment Procedure Code Equipment Code Equipment Origin al Text Equipment Identifier Dates [facility] Prescription, See Instructions, 100 strip(s), 0, Disp one Glucometer, #100 test strips and #100 lancets to test blood sugars once a day. Dx E11.8, [employer]Ready #72, Supply Start: 12-07-2022 [facility] Prescription, See Instructions, 100 strip(s), 0, Disp one Glucometer, #100 test strips and #100 lancets to test blood sugars once a day. Dx E11.8, [employer]Ready #72, Supply Start: 12-07-2022 Goals Date Patient Goal Desired Activity /State Clinical Notes 11-09-2022 to 09-15-2023 Mercedes Higgins RT(R) - 05/10/2023 1:35 PM Harish Figueredo MD - 05/10/2023 12:34 PM Harish Figueredo MD - 02/08/2023 1:00 PM RT Tyrell(R) - 11/09/2022 2:58 PM EDT Note Date & Type Note Facility 09-15-2023 Evaluation + Plan note Future Scheduled [id number] 09/15/23CV Antibody RFX to Quant PCR 09/15/23 [facility] 08-16-2023 Note HNO ID: [id number] Author: HARISH MARSHALL MD Service: ? Author Type: Physician Type: Progress Notes Filed: 08/16/2023 12:58 Note Text: Rheumatology Outpatient Clinic Date of Service: 08/16/2023 Patient: Yamile Rose Medical Record: [id number] Primary Care Physician: Aleksander Jimenez MD Referring Provider: SELF Last Rheumatology visit: 05/10/2023 (with Harish Marshall) Chief complaint: Recheck (Left and right shoulder and right knee has been bothering her. Tylenol does help. 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 Tylenol does help. Denies any pain today.). She is currently taking methotrexate sodium, prednisone. Yamile is both RF - 49 (11/09/2022) and CCP - 275 (11/09/2022) positive. HISTORY OF PRESENT ILLNESS History of rheumatoid arthritis She was being followed by local rheumatology in [place], but her daughter wanted her to get a 2nd opinion at [facility]. Seen by Dr. Livingston in 05/2018 Her local rheum added methotrexate which she started after her visit here in 05/2018 She was following with chief operator hydroformer at [place] however her insurance was no more covering the chief operator hydroformer in [place] so she came back to [facility]. Patient reports pain over MCPs, PIPs, wrists, elbows, shoulders, hips, knees, toes- She also reports intermittent MCPs and PIPs swelling She thinks methotrexate has helped decrease the joint swelling however has not completely resolved. She reports she has good days and bad days and winter is worst. She takes prednisone 5 mg to 15 mg once every 3 to 4 days for intermittent flares Pain is worst in am and also if she is more active. EMS- 1 hour Denies history of inflammatory eye disease, inflammatory bowel disease, psoriasis, history of kidney disease/biopsy, nephrolithiasis, peptic ulcer disease, miscarriages, blood clots, malignancy, pleural/pericardial effusion, CHF, CAD, CVA. Seen as new patient by me in 10/2022- she had synovitis in her hands, advised to increase MTX to 20 mg weekly and advised to limit use of prednisone. 01/2023- Patient reports that her joint pain and swelling is better since increasing dose of methotrexate, no synovitis or tenderness on exam today Currently on MTX 20 mg weekly with folic acid 1 mg daily Plan Continue methotrexate 20 mg weekly Increase dose of folic acid to 2 mg daily due to oral ulcers 04/2023-she was doing well on methotrexate, however had worsening of pain and swelling after holding methotrexate for 2-1/2 weeks, has right long PIP synovitis on exam today , resumed MTX 20 mg weekly with folic acid 2 mg daily last Monday Plan Continue methotrexate 20 mg weekly Continue folic acid to 2 mg daily 10/2022 RF 49, CCP 275 04/2018 RF 23 CCP 25 Sed rate/CRP normal TB screening negative Hepatitis B/C negative XR bilateral hands 10/2022- Mild osteoarthritis of the bilateral hands. XR bilateral feet 10/2022- Negative radiographs of the bilateral feet Radiograph bilateral feet 04/2018-Mild pes cavus bilaterally. Small calcaneal enthesophytes bilaterally. No erosions. Radiograph lumbar spine 04/2018-Minimal grade 1 anterolisthesis of L4 on L5. Disc heights are normal. Degenerative facet changes in the lower lumbar spine. INTERVAL HISTORY Today She denies any joint pain today She gets pain over right knee and bilateral shoulders on and off. Right knee pain is mostly with activities, bending. Shoulder pain is with certain position. She takes Tylenol which helps with the pain Denies any joint swelling Denies oral ulcers since increasing dose of folic acid Denies any other new symptoms Patient-Entered Data PAIN EVALUATION No data found in the last 1 encounters. PROMIS Assessments PROMIS Assessments 02/07/2023 05/05/2023 08/15/2023 Physical Health Percentile 7% 10% 22% Mental Health Percentile 9% 9% 19% Pain Score 2 3 3 Pain Interference Percentile 8% 12% 12% Fatigue Percentile 8% 24% 24% Physical Function Percentile 12% 16% 18% RAPID 3 [facility] Activities of Daily Living 08/15/2023 8:50 AM 05/05/2023 9:15 AM 02/07/2023 10:24 AM First answer obtained - 11/08/2022 11:32 AM Dress self? With SOME difficulty With SOME difficulty With SOME difficulty With SOME difficulty Get in and out of bed? With SOME difficulty With SOME difficulty With SOME difficulty With SOME difficulty Walk outdoors? With SOME difficulty With SOME difficulty With SOME difficulty With SOME difficulty Wash and dry body? With SOME difficulty With SOME difficulty With SOME difficulty With SOME diff (more content not included)... [facility] 05-10-2023 Note HNO ID: [id number] Author: Mercedes Peña RT(R) Service: ? Author Type: Technologist Type: Progress Notes Filed: 05/10/2023 1:36 PM Note Text: Radiology Service Progress Note PATIENT NAME: Yamile Rose DATE OF SERVICE: May 10, 2023 TIME: 1:35 PM PATIENT IDENTITY VERIFICATION COMPLETED USING TWO (2) IDENTIFIERS: Name and Date of confirmed by patient verbally. FALL SCREENING: Has the patient had 2 falls in the last year or 1 fall with injury or currently using an Ambulatory Assistive Device (Walker, Cane, Wheelchair, Crutches, etc.)? No PATIENT GENDER DATA: Female. status: : No status: N/A PATIENT RELEVANT IMPLANT DATA REVIEWED: Not Applicable RADIOLOGY DEPARTMENT: General X-ray: Exam(s) Completed: Spine X-Ray(s): Thoracic PERIPHERAL IV DATA: Not applicable SIGNED BY: RT Bk(R) May 10, 2023 1:35 PM [facility] 05-10-2023 Note HNO ID: [id number] Author: Harish Marshall MD Service: ? Author Type: Physician Type: Progress Notes Filed: 05/10/2023 12:59 PM Note Text: Rheumatology Outpatient Clinic Date of Service: 05/10/2023 Patient: Yamile Rose Medical Record: [id number] Primary Care Physician: Aleksander Jimenez MD Referring Provider: SELF Last Rheumatology visit: 02/08/2023 (with Harish Marshall) Chief complaint: Follow Up, Pain (Ongoing generalized pain.), and Refill Request History of Present Illness Yamile Rose is a 68 year old White female with medical history of rheumatoid arthritis, hyperlipidemia, diabetes mellitus, history of tobacco use, Histoplasmosis right eye in ( treated), macular degeneration ( blind right eye central vision), presents on 05/10/2023 for an in-person visit for evaluation of Follow Up, Pain (Ongoing generalized pain.), and Refill Request. She is currently taking methotrexate sodium, prednisone. Yamile is both RF - 49 (11/09/2022) and CCP - 275 (11/09/2022) positive. HISTORY OF PRESENT ILLNESS History of rheumatoid arthritis She was being followed by local rheumatology in [place], but her daughter wanted her to get a 2nd opinion at [facility]. Seen by Dr. Livingston in 05/2018 Her local rheum added methotrexate which she started after her visit here in 05/2018 She was following with chief operator hydroformer at [place] however her insurance was no more covering the chief operator hydroformer in [place] so she came back to [facility]. Patient reports pain over MCPs, PIPs, wrists, elbows, shoulders, hips, knees, toes- She also reports intermittent MCPs and PIPs swelling She thinks methotrexate has helped decrease the joint swelling however has not completely resolved. She reports she has good days and bad days and winter is worst. She takes prednisone 5 mg to 15 mg once every 3 to 4 days for intermittent flares Pain is worst in am and also if she is more active. EMS- 1 hour Denies history of inflammatory eye disease, inflammatory bowel disease, psoriasis, history of kidney disease/biopsy, nephrolithiasis, peptic ulcer disease, miscarriages, blood clots, malignancy, pleural/pericardial effusion, CHF, CAD, CVA. Seen as new patient by me in 10/2022- she had synovitis in her hands, advised to increase MTX to 20 mg weekly and advised to limit use of prednisone. 01/2023- Patient reports that her joint pain and swelling is better since increasing dose of methotrexate, no synovitis or tenderness on exam today Currently on MTX 20 mg weekly with folic acid 1 mg daily Plan Continue methotrexate 20 mg weekly Increase dose of folic acid to 2 mg daily due to oral ulcers 10/2022 RF 49, CCP 275 04/2018 RF 23 CCP 25 Sed rate/CRP normal TB screening negative Hepatitis B/C negative XR bilateral hands 10/2022- Mild osteoarthritis of the bilateral hands. XR bilateral feet 10/2022- Negative radiographs of the bilateral feet Radiograph bilateral feet 04/2018-Mild pes cavus bilaterally. Small calcaneal enthesophytes bilaterally. No erosions. Radiograph lumbar spine 04/2018-Minimal grade 1 anterolisthesis of L4 on L5. Disc heights are normal. Degenerative facet changes in the lower lumbar spine. INTERVAL HISTORY Today She reports that she held mtx for 2 and half weeks, due to ongoing oral sores despite taking folic acid 1 mg daily. She also had multiple tooth pulled out due to periodontitis. Since her tooth is pulled out, her oral sores has been significantly better so she is not sure if methotrexate or dental problem was causing oral sores. After holding methotrexate for 2 and half weeks she noticed worsening of joint pain in her hands and difficulty making fist so resumed last Monday. Patient-Entered Data PAIN EVALUATION No data found in the last 1 encounters. PROMIS Assessments PROMIS Assessments 11/08/2022 02/07/2023 05/05/2023 Physical Health Percentile 22 % 7 % 10 % Mental Health Percentile 26 % 9 % 9 % Pain Score 3 2 3 Pain Interference Percentile 12 % 8 % 12 % Fatigue Percentile 38 % 8 % 24 % Physical Function Percentile 21 % 12 % 16 % RAPID 3 [facility] Activities of Daily Living 05/05/2023 9:15 AM 02/07/2023 10:24 AM 11/08/2022 11:32 AM Dress self? With SOME difficulty With SOME difficulty With SOME difficulty Get in and out of bed? With SOME difficulty With SOME difficulty With SOME difficulty Walk outdoors? With SOME difficulty With SOME difficulty With SOME difficulty Wash and dry body? With SOME difficulty With SOME difficulty With SOME difficulty Get in and out of car? With SOME difficulty With MUCH difficulty With SOME difficulty RAPID 3 Disease Activity Weighed Score Levels: 0 - 1: Near Remission 1.3 - 2.0: Low Severity 2.3 - 4.0: Moderate Severity 4.3 - 10.0: High Severity RAPID-3 Weighed Score 11/08/2022 02/07/2023 05/05/2023 RAPID 3 Weighed Score - - - RAPID 3 Weighed Score 4.78 (High Severity (HS)) 6.39 (High S (more content not included)... [facility] 05-10-2023 History of Present illness Narrative Radiology Service Progress Note PATIENT NAME: Yamile Rose DATE OF SERVICE: May 10, 2023 TIME: 1:35 PM PATIENT IDENTITY VERIFICATION COMPLETED USING TWO (2) IDENTIFIERS: Name and Date of confirmed by patient verbally. FALL SCREENING: Has the patient had 2 falls in the last year or 1 fall with injury or currently using an Ambulatory Assistive Device (Walker, Cane, Wheelchair, Crutches, etc.)? No PATIENT GENDER DATA: Female. status: : No status: N/A PATIENT RELEVANT IMPLANT DATA REVIEWED: Not Applicable RADIOLOGY DEPARTMENT: General X-ray: Exam(s) Completed: Spine X-Ray(s): Thoracic PERIPHERAL IV DATA: Not applicable SIGNED BY: RT Bk(R) May 10, 2023 1:35 PM documented in this encounter [facility] 05-10-2023 History of Present illness Narrative Images from the original note were not included. Rheumatology Outpatient Clinic Date of Service: 05/10/2023 Patient: Yamile Rose Medical Record: [id number] Primary Care Physician: Aleksander Jimenez MD Referring Provider: SELF Last Rheumatology visit: 02/08/2023 (with Harish Marshall) Chief complaint: Follow Up, Pain (Ongoing generalized pain.), and Refill Request History of Present Illness Yamile Rose is a 68 year old White female with medical history of rheumatoid arthritis, hyperlipidemia, diabetes mellitus, history of tobacco use, Histoplasmosis right eye in ( treated), macular degeneration ( blind right eye central vision), presents on 05/10/2023 for an in-person visit for evaluation of Follow Up, Pain (Ongoing generalized pain.), and Refill Request. She is currently taking methotrexate sodium, prednisone. Yamile is both RF - 49 (11/09/2022) and CCP - 275 (11/09/2022) positive. HISTORY OF PRESENT ILLNESS History of rheumatoid arthritis She was being followed by local rheumatology in [place], but her daughter wanted her to get a 2nd opinion at [facility]. Seen by Dr. Livingston in 05/2018 Her local rheum added methotrexate which she started after her visit here in 05/2018 She was following with chief operator hydroformer at [place] however her insurance was no more covering the chief operator hydroformer in [place] so she came back to [facility]. Patient reports pain over MCPs, PIPs, wrists, elbows, shoulders, hips, knees, toes- She also reports intermittent MCPs and PIPs swelling She thinks methotrexate has helped decrease the joint swelling however has not completely resolved. She reports she has good days and bad days and winter is worst. She takes prednisone 5 mg to 15 mg once every 3 to 4 days for intermittent flares Pain is worst in am and also if she is more active. EMS- 1 hour Denies history of inflammatory eye disease, inflammatory bowel disease, psoriasis, history of kidney disease/biopsy, nephrolithiasis, peptic ulcer disease, miscarriages, blood clots, malignancy, pleural/pericardial effusion, CHF, CAD, CVA. Seen as new patient by me in 10/2022- she had synovitis in her hands, advised to increase MTX to 20 mg weekly and advised to limit use of prednisone. 01/2023- Patient reports that her joint pain and swelling is better since increasing dose of methotrexate, no synovitis or tenderness on exam today Currently on MTX 20 mg weekly with folic acid 1 mg daily Plan Continue methotrexate 20 mg weekly Increase dose of folic acid to 2 mg daily due to oral ulcers 10/2022 RF 49, CCP 275 04/2018 RF 23 CCP 25 Sed rate/CRP normal TB screening negative Hepatitis B/C negative XR bilateral hands 10/2022- Mild osteoarthritis of the bilateral hands. XR bilateral feet 10/2022- Negative radiographs of the bilateral feet Radiograph bilateral feet 04/2018-Mild pes cavus bilaterally. Small calcaneal enthesophytes bilaterally. No erosions. Radiograph lumbar spine 04/2018-Minimal grade 1 anterolisthesis of L4 on L5. Disc heights are normal. Degenerative facet changes in the lower lumbar spine. INTERVAL HISTORY Today She reports that she held mtx for 2 and half weeks, due to ongoing oral sores despite taking folic acid 1 mg daily. She also had multiple tooth pulled out due to periodontitis. Since her tooth is pulled out, her oral sores has been significantly better so she is not sure if methotrexate or dental problem was causing oral sores. After holding methotrexate for 2 and half weeks she noticed worsening of joint pain in her hands and difficulty making fist so resumed last Monday. Patient-Entered Data PAIN EVALUATION No data found in the last 1 encounters. PROMIS Assessments PROMIS Assessments 11/08/2022 02/07/2023 05/05/2023 Physical Health Percentile 22 % 7 % 10 % Mental Health Percentile 26 % 9 % 9 % Pain Score 3 2 3 Pain Interference Percentile 12 % 8 % 12 % Fatigue Percentile 38 % 8 % 24 % Physical Function Percentile 21 % 12 % 16 % RAPID 3 [facility] Activities of Daily Living 05/05/2023 9:15 AM 02/07/2023 10:24 AM 11/08/2022 11:32 AM Dress self? With SOME difficulty With SOME difficulty With SOME difficulty Get in and out of bed? With SOME difficulty With SOME difficulty With SOME difficulty Walk outdoors? With SOME difficulty With SOME difficulty With SOME difficulty Wash and dry body? With SOME difficulty With SOME difficulty With SOME difficulty Get in and out of car? With SOME difficulty With MUCH difficulty With SOME difficulty RAPID 3 Disease Activity Weighed Score Levels: 0 - 1: Near Remission 1.3 - 2.0: Low Severity 2.3 - 4.0: Moderate Severity 4.3 - 10.0: High Severity RAPID-3 Weighed Score 11/08/2022 02/07/2023 05/05/2023 RAPID 3 Weighed Score - - - RAPID 3 Weighed Score 4.78 (High Severity (HS)) 6.39 (High Severity (HS)) 5.28 (High Severity (HS)) Review of Systems Review of Systems CONSTITUTION: Negative for: Fever and Recent weight change HEENT: Positive for: Mouth sores, Trouble swallowing and Dry mouth Negative for: Nosebleeds RESPIRATORY: Negative for: Cough, Shortness of breath and Pain with breathing GASTROINTESTINAL: Negative for: Melena, Diarrhea, Heartburn and Abdominal pain MUSCULOSKELETAL: Positive for: Arthralgias, Myalgias, Muscle weakness, Joint swelling and Morning Joint Stiffness NEUROLOGICAL: Positive for: Headaches, Numbness and Memory loss SKIN: Negative for: Rash, Skin changes, Hair loss and Nail changes EYES: Positive for: Eye pain, Eye redness, Eye dryness and Visual disturbance CARDIOVASCULAR: Negative for: Chest pain and Leg swelling GENITOURINARY: Negative for: Dysuria and Hematuria HEMATOLOGIC/LYMPHATIC: Negative for: Swollen glands Raynaud's: Denies Past Medical History PAST MEDICAL HISTORY Diagnosis Date Hyperlipidemia 07/27/2010 Macular degeneration 07/27/2010 Normal coronary arteries 07/2010 LHC performed for evaluation chest pain, abnormal stress test UTI (urinary tract infection) 07/27/2010 Past Surgical History PAST SURGICAL HISTORY Procedure Laterality Date CARPAL TUNNEL HYSTERECTOMY HX 1991 LIG/TRNSXJ FLP TUBE ABDL/VAG APPR UNI/BI in the OVARIAN CYSTECTOMY in the Allergy ALLERGIES Allergen Reactions Cefuroxime Hives Family History The patient denies family history of SLE, RA, Sarcoidosis, Scleroderma, IBD or Psoriasis. FAMILY HISTORY Problem Relation Age of Onset Ischemic Heart Disease Father other (liver ca) Father age 78 liver CA; CAD other (bladder ca) Mother age 59 bladder CA Heart Brother valvular heart disease Social History Social History Tobacco Use Smoking status: Former Packs/day: 0.75 Years: 40.00 Additional pack years: 0.00 Total pack years: 30.00 Types: Cigarettes Quit date: 07/24/2015 Years since quittin.8 Smokeless tobacco: Never Tobacco comments: active smoker for about 40 years about 1 pk per day; quit 2015 Substance Use Topics Alcohol use: No Drug use: No Current Medications Current Outpatient Medications Medication Sig atorvastatin (LIPITOR) 20 mg tablet 1 PO at bedtime OZEMPIC 0.25 mg or 0.5 mg(2 mg/1.5 mL) pen INJECT 0.5 mg SUBCUTANEOUSLY EVERY WEEK predniSONE (DELTASONE) 5 mg tablet Take 1 tablet by mouth as needed. Take 1 tablet by mouth daily as needed metFORMIN (GLUCOPHAGE) 850 mg tablet TAKE 1 TABLET BY MOUTH DAILY WITH BREAKFAST & supper folic acid 1 mg tablet Take 2 tablets by mouth once daily. methotrexate 2.5 mg tablet Take 8 tablets by mouth one time a week. No current facility-administered medications for this visit. Labs CBC Latest Ref Rng & Units 07/27/2010 05/10/2018 11/09/2022 02/08/2023 WBC 3.70 - 11.00 k/uL 7.95 6.76 6.38 6.74 HEMOGLOBIN 11.5 - 15.5 g/dL 15.5 14.6 15.0 14.3 HEMATOCRIT 36.0 - 46.0 % 46.8(H) 44.4 46.4(H) 44.1 PLATELETS 150 - 400 k/uL 222 229 231 222 ABS NEUT (ANC) 1.45 - 7.50 k/uL 4.52 - 3.73 3.75 ABS LYMPH 1.00 - 4.00 k/uL 2.82 - 1.94 2.30 CMP Latest Ref Rng & Units 07/27/2010 05/10/2018 11/09/2022 02/08/2023 SODIUM 136 - 144 mmol/L 141 137 140 - POTASSIUM 3.7 - 5.1 mmol/L 4.3 4.3 4.3 - CHLORIDE 97 - 105 mmol/L 104 97 104 - CO2 22 - 30 mmol/L 28 25 25 - GLUCOSE 74 - 99 mg/dL 119(H) 219(H) 124(H) - BUN 7 - 21 mg/dL 16 18 14 - CREATININE 0.58 - 0.96 mg/dL 0.91 0.71 1.04(H) 0.82 CALCIUM, TOTAL 8.5 - 10.2 mg/dL 9.6 9.8 9.6 - AST 13 - 35 U/L 15 16 16 24 ALT 7 - 38 U/L 16 17 15 31 ALKALINE PHOSPHATASE 34 - 123 U/L 76 75 72 - ESR, WSR Latest Ref Rng & Units 05/10/2018 11/09/2022 WSR 0 - 20 mm/hr 8 6 CRP Latest Ref Rng & Units 05/10/2018 11/09/2022 CRP <0.9 mg/dL 0.3 <0.3 CK Latest Ref Rng & Units 07/29/2010 CK 30 - 220 U/L 75 RF and CCP Latest Ref Rng & Units 05/10/2018 11/09/2022 RHEUMATOID FACTOR <16 IU/mL 23(H) 49(H) CCP ANTIBODY IGG QUALITATIVE Negative - Strong Positive(A) CCP ANTIBODY, IGG <20 Units 25(H) >250(H) Hepatitis Screen Latest Ref Rng & Units 05/10/2018 11/09/2022 HEPBCOTOL Negative Negative Negative HEPSABQ Positive Negative Negative(A) HEPCABEIA Negative Negative Negative HBSAG Negative - Negative HBSAGR Negative Negative - TB Screen 05/10/2018 11/09/2022 TBGINT No evidence of current or previous infection with Mycobacterium tuberculosis. Infection with M. tuberculosis complex is unlikely. If latent tuberculosis infection is highly suspected, a negative result does not rule out the infection. Specimens from immunocompromised patients and those <5 years of age may show false negative results. In case of a contact investigation, please repeat 8-12 weeks after a known exposure. TBGRES Negative Negative Vitamin D Latest Ref Rng & Units 05/10/2018 11/09/2022 VITAMIN D 25 HYDROXY 31.0 - 80.0 ng/mL 26.0(L) 31.8 Imaging Last XR Hand/Finger - Impression Only XR HAND GENERAL 3V PA/LAT/OBL BILATERAL Exam End: 11/09/2022 3:01 PM (Final result) Impression: IMPRESSION: 1. Mild osteoarthritis of the bilateral hands. Cap And Stud 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: MAGDA Transcribe Date/Time: Nov 10 2022 8:57A ... Last MRI Hand - Impression Only No resulted procedures found. Last XR Chest - Impression Only No resulted procedures found. Last XR Cervical Spine - Impression Only No resulted procedures found. Health Maintenance Current Immunizations Never Reviewed Name Date COVID-19 vaccine, bivalent (MODERNA) 08/10/2022 COVID-19 vaccine, monovalent (MODERNA) 12/15/2021 , 05/20/2021 , 10/29/2020 , 10/01/2020 Physical Exam VITAL SIGNS: BP 122/66 Pulse 77 Wt 167 lb (75.8kg) GENERAL APPEARANCE: Well groomed. In no distress. SKIN: No rash, thickening, nodules, calcifications, discoloration. EYES: PERRL, EOMI HENT: Normal external examination of the ears and nose, lips, oropharynx and tongue. No oropharyngeal lesions, exudate, or sores. NECK: No mass or asymmetry, no lymphadenopathy. RESPIRATORY: Normal respiratory effort. Clear to auscultation, no wheeze. CARDIOVASCULAR: regular, normal rate, normal heart sounds, no murmur or rub ABDOMEN: BS normal. No bruits, NEUROLOGIC: Alert and oriented x 3. Motor exam: Normal muscle strength grossly. Normal bulk and tone. MUSCULOSKELETAL EXAMINATION: Upper extremities: Shoulders: no tenderness to palpation. No swelling or effusion. Elbows: Full ROM in flexion and extension. No swelling or effusion. No tenderness to palpation to the joint line, olecranon, medial or lateral epicondyles. Wrists: Full ROM in all solis. No swelling or synovitis. No pain with pronation/supination. No tenderness to palpation Hands: Full ROM in flexion and extension. Full hydrometallurgical engineer strength. Synovitis and tenderness over right long PIP Lower extremities: Knees: Full ROM in flexion and extension. No swelling or effusion. No tenderness to palpation. Ankles: No tenderness to palpation Feet: No effusion. No tenderness to palpation. Diagnoses: (M05.79) Rheumatoid arthritis involving multiple sites with positive rheumatoid factor (HCC) (primary encounter diagnosis) (Z79.899) Encounter for long-term (current) use of medications (M54.6) Thoracic back pain, unspecified back pain laterality, unspecified chronicity Impression and Plan 1. Seropositive Rheumatoid arthritis, non erosive, non nodular Manifestations- Joint pain with swelling, synovitis, RF 23, CCP 250, good response to methotrexate and prednisone Status-she was doing well on methotrexate, however had worsening of pain and swelling after holding methotrexate for 2-1/2 weeks, has right long PIP synovitis on exam today , resumed MTX 20 mg weekly with folic acid 2 mg daily last Monday Plan Continue methotrexate 20 mg weekly Continue folic acid to 2 mg daily If she continues to have oral sores, will consider increasing dose of folic acid to 3 mg daily or switch methotrexate to other DMARDs advised to limit use of prednisone Avoid hydroxychloroquine due to history of macular degeneration Avoid TNF inhibitor due 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 Monitoring for drug toxicity CBC/CMP to monitor methotrexate toxicity today TB screening, hep B/C negative in 10/2022 3. Midthoracic pain Reports midthoracic pain with swelling on and off No history of trauma Obtain radiograph thoracic spine 4. Osteoarthritis She does also have osteoarthritis which could be contributing to her pain Continue taking Tylenol as needed May take Aleve as needed She would like to try aquatic therapy, referral ordered 5. Healthcare maintenance/Malignancy screening Defer to PCP Orders this visit: Office Visit on 05/10/23 XR THORACIC GENERAL 3V AP/LAT/SWIMMERS COMP METABOLIC PANEL CBC + DIFF CONSULT TO PHYSICAL THERAPY folic acid 1 mg tablet methotrexate 2.5 mg tablet Return in about 3 months (around 08/10/2023). I spent a total of 30 minutes on the date of the service which included preparing to see the patient, [id number] patient care, completing clinical documentation, obtaining and/or reviewing separately obtained history, performing a medically appropriate examination, counseling and educating the patient/family/caregiver, and ordering medications, tests, or procedures. ___ Harish Marshall MD, [facility] Rheumatology documented in this encounter [facility] 02-08-2023 Note HNO ID: [id number] Author: Harish Marshall MD Service: ? Author Type: Physician Type: Progress Notes Filed: 02/08/2023 1:31 PM Note Text: Rheumatology Outpatient Clinic Date of Service: 02/08/2023 Patient: Yamile Rose Medical Record: [id number] Primary Care Physician: Aleksander Jimenez MD Referring Provider: SELF Last Rheumatology visit: 11/09/2022 (with Harish Marshall) Chief complaint: Follow Up History of Present Illness Yamile Rose is a 67 year old White female with medical history of rheumatoid arthritis, hyperlipidemia, diabetes mellitus, history of tobacco use, Histoplasmosis right eye in ( treated), macular degeneration ( blind right eye central vision), presents on 02/08/2023 for an in-person visit for evaluation of Follow Up. She is currently taking methotrexate sodium, prednisone. Yamile is both RF - 49 (11/09/2022) and CCP - 275 (11/09/2022) positive. HISTORY OF PRESENT ILLNESS History of rheumatoid arthritis She was being followed by local rheumatology in [place], but her daughter wanted her to get a 2nd opinion at [facility]. Seen by Dr. Livingston in 05/2018 Her local rheum added methotrexate which she started after her visit here in 05/2018 She was following with chief operator hydroformer at [place] however her insurance was no more covering the chief operator hydroformer in [place] so she came back to [facility]. Patient reports pain over MCPs, PIPs, wrists, elbows, shoulders, hips, knees, toes- She also reports intermittent MCPs and PIPs swelling She thinks methotrexate has helped decrease the joint swelling however has not completely resolved. She reports she has good days and bad days and winter is worst. She takes prednisone 5 mg to 15 mg once every 3 to 4 days for intermittent flares Pain is worst in am and also if she is more active. EMS- 1 hour Denies history of inflammatory eye disease, inflammatory bowel disease, psoriasis, history of kidney disease/biopsy, nephrolithiasis, peptic ulcer disease, miscarriages, blood clots, malignancy, pleural/pericardial effusion, CHF, CAD, CVA. Seen as new patient by me in 10/2022- she had synovitis in her hands, advised to increase MTX to 20 mg weekly and advised to limit use of prednisone. 10/2022 RF 49, CCP 275 04/2018 RF 23 CCP 25 Sed rate/CRP normal TB screening negative Hepatitis B/C negative XR bilateral hands 10/2022- Mild osteoarthritis of the bilateral hands. XR bilateral feet 10/2022- Negative radiographs of the bilateral feet Radiograph bilateral feet 04/2018-Mild pes cavus bilaterally. Small calcaneal enthesophytes bilaterally. No erosions. Radiograph lumbar spine 04/2018-Minimal grade 1 anterolisthesis of L4 on L5. Disc heights are normal. Degenerative facet changes in the lower lumbar spine. INTERVAL HISTORY Patient reports that her joint pain and swelling is better. Her joints hurt more after she has been active on previous day such as if she is working in her yard She reports that her joint swelling is also better however is not able to bend at PIPs completely Has taken prednisone twice in the last 3 months Has noted sores in mouth sometimes Patient-Entered Data PAIN EVALUATION 02/07/2023 1013 Pain Level: 5 Pain Location: -- hands Description: Aching Duration Units: Weeks Frequency: Intermittent PROMIS Assessments PROMIS Assessments 05/10/2018 11/08/2022 02/07/2023 Physical Health Percentile 15.39 % 22 % 7 % Mental Health Percentile 18.67 % 26 % 9 % Pain Score 8 3 2 Pain Interference Percentile - 12 % 8 % Fatigue Percentile - 38 % 8 % Physical Function Percentile - 21 % 12 % RAPID 3 Starr Activities of Daily Living 02/07/2023 10:24 AM 11/08/2022 11:32 AM Dress self? With SOME difficulty With SOME difficulty Get in and out of bed? With SOME difficulty With SOME difficulty Walk outdoors? With SOME difficulty With SOME difficulty Wash and dry body? With SOME difficulty With SOME difficulty Get in and out of car? With MUCH difficulty With SOME difficulty RAPID 3 Disease Activity Weighed Score Levels: 0 - 1: Near Remission 1.3 - 2.0: Low Severity 2.3 - 4.0: Moderate Severity 4.3 - 10.0: High Severity RAPID-3 Weighed Score 06/27/2018 11/08/2022 02/07/2023 RAPID 3 Weighed Score 5.7 - - RAPID 3 Weighed Score - 4.78 (High Severity (HS)) 6.39 (High Severity (HS)) Review of Systems Review of Systems CONSTITUTION: Negative for: Fever and Recent weight change HEENT: Positive for: Trouble swallowing and Dry mouth Negative for: Nosebleeds and Mouth sores RESPIRATORY: Negative for: Cough, Shortness of breath and Pain with breathing GASTROINTESTINAL: Negative for: Melena, Diarrhea, Heartburn and Abdominal pain MUSCULOSKELETAL: Positive for: Arthralgias, Myalgias, Muscle weakness, Joint swelling and Morning Joint Stiffness NEUROLOGICAL: Positive for: Headaches, Numbness and Memory loss SKIN: Negative for: Rash, Skin changes, Hair los (more content not included)... [facility] 02-08-2023 History of Present illness Narrative Images from the original note were not included. Rheumatology Outpatient Clinic Date of Service: 02/08/2023 Patient: Yamile Rose Medical Record: [id number] Primary Care Physician: Aleksander Jimenez MD Referring Provider: SELF Last Rheumatology visit: 11/09/2022 (with Harish Marshall) Chief complaint: Follow Up History of Present Illness Yamile Rose is a 67 year old White female with medical history of rheumatoid arthritis, hyperlipidemia, diabetes mellitus, history of tobacco use, Histoplasmosis right eye in ( treated), macular degeneration ( blind right eye central vision), presents on 02/08/2023 for an in-person visit for evaluation of Follow Up. She is currently taking methotrexate sodium, prednisone. Yamile is both RF - 49 (11/09/2022) and CCP - 275 (11/09/2022) positive. HISTORY OF PRESENT ILLNESS History of rheumatoid arthritis She was being followed by local rheumatology in [place], but her daughter wanted her to get a 2nd opinion at [facility]. Seen by Dr. Livingston in 05/2018 Her local rheum added methotrexate which she started after her visit here in 05/2018 She was following with chief operator hydroformer at [place] however her insurance was no more covering the chief operator hydroformer in [place] so she came back to [facility]. Patient reports pain over MCPs, PIPs, wrists, elbows, shoulders, hips, knees, toes- She also reports intermittent MCPs and PIPs swelling She thinks methotrexate has helped decrease the joint swelling however has not completely resolved. She reports she has good days and bad days and winter is worst. She takes prednisone 5 mg to 15 mg once every 3 to 4 days for intermittent flares Pain is worst in am and also if she is more active. EMS- 1 hour Denies history of inflammatory eye disease, inflammatory bowel disease, psoriasis, history of kidney disease/biopsy, nephrolithiasis, peptic ulcer disease, miscarriages, blood clots, malignancy, pleural/pericardial effusion, CHF, CAD, CVA. Seen as new patient by me in 10/2022- she had synovitis in her hands, advised to increase MTX to 20 mg weekly and advised to limit use of prednisone. 10/2022 RF 49, CCP 275 04/2018 RF 23 CCP 25 Sed rate/CRP normal TB screening negative Hepatitis B/C negative XR bilateral hands 10/2022- Mild osteoarthritis of the bilateral hands. XR bilateral feet 10/2022- Negative radiographs of the bilateral feet Radiograph bilateral feet 04/2018-Mild pes cavus bilaterally. Small calcaneal enthesophytes bilaterally. No erosions. Radiograph lumbar spine 04/2018-Minimal grade 1 anterolisthesis of L4 on L5. Disc heights are normal. Degenerative facet changes in the lower lumbar spine. INTERVAL HISTORY Patient reports that her joint pain and swelling is better. Her joints hurt more after she has been active on previous day such as if she is working in her yard She reports that her joint swelling is also better however is not able to bend at PIPs completely Has taken prednisone twice in the last 3 months Has noted sores in mouth sometimes Patient-Entered Data PAIN EVALUATION 02/07/2023 1013 Pain Level: 5 Pain Location: -- hands Description: Aching Duration Units: Weeks Frequency: Intermittent PROMIS Assessments PROMIS Assessments 05/10/2018 11/08/2022 02/07/2023 Physical Health Percentile 15.39 % 22 % 7 % Mental Health Percentile 18.67 % 26 % 9 % Pain Score 8 3 2 Pain Interference Percentile - 12 % 8 % Fatigue Percentile - 38 % 8 % Physical Function Percentile - 21 % 12 % RAPID 3 Starr Activities of Daily Living 02/07/2023 10:24 AM 11/08/2022 11:32 AM Dress self? With SOME difficulty With SOME difficulty Get in and out of bed? With SOME difficulty With SOME difficulty Walk outdoors? With SOME difficulty With SOME difficulty Wash and dry body? With SOME difficulty With SOME difficulty Get in and out of car? With MUCH difficulty With SOME difficulty RAPID 3 Disease Activity Weighed Score Levels: 0 - 1: Near Remission 1.3 - 2.0: Low Severity 2.3 - 4.0: Moderate Severity 4.3 - 10.0: High Severity RAPID-3 Weighed Score 06/27/2018 11/08/2022 02/07/2023 RAPID 3 Weighed Score 5.7 - - RAPID 3 Weighed Score - 4.78 (High Severity (HS)) 6.39 (High Severity (HS)) Review of Systems Review of Systems CONSTITUTION: Negative for: Fever and Recent weight change HEENT: Positive for: Trouble swallowing and Dry mouth Negative for: Nosebleeds and Mouth sores RESPIRATORY: Negative for: Cough, Shortness of breath and Pain with breathing GASTROINTESTINAL: Negative for: Melena, Diarrhea, Heartburn and Abdominal pain MUSCULOSKELETAL: Positive for: Arthralgias, Myalgias, Muscle weakness, Joint swelling and Morning Joint Stiffness NEUROLOGICAL: Positive for: Headaches, Numbness and Memory loss SKIN: Negative for: Rash, Skin changes, Hair loss and Nail changes EYES: Positive for: Eye dryness Negative for: Eye pain, Eye redness and visual disturbance CARDIOVASCULAR: Negative for: Chest pain and Leg swelling GENITOURINARY: Negative for: Dysuria and Hematuria HEMATOLOGIC/LYMPHATIC: Negative for: Swollen glands Raynaud's: Denies Past Medical History PAST MEDICAL HISTORY Diagnosis Date Hyperlipidemia 07/27/2010 Macular degeneration 07/27/2010 Normal coronary arteries 07/2010 C performed for evaluation chest pain, abnormal stress test UTI (urinary tract infection) 07/27/2010 Past Surgical History PAST SURGICAL HISTORY Procedure Laterality Date CARPAL TUNNEL HYSTERECTOMY HX 1991 LIG/TRNSXJ FLP TUBE ABDL/VAG APPR UNI/BI in the OVARIAN CYSTECTOMY in the Allergy ALLERGIES Allergen Reactions Cefuroxime Hives Family History The patient denies family history of SLE, RA, Sarcoidosis, Scleroderma, IBD or Psoriasis. FAMILY HISTORY Problem Relation Age of Onset Ischemic Heart Disease Father other (liver ca) Father age 78 liver CA; CAD other (bladder ca) Mother age 59 bladder CA Heart Brother valvular heart disease Social History Social History Tobacco Use Smoking status: Former Packs/day: 0.75 Years: 40.00 Total pack years: 30.00 Types: Cigarettes Quit date: 07/24/2015 Years since quittin.5 Smokeless tobacco: Never Tobacco comments: active smoker for about 40 years about 1 pk per day; quit 2015 Substance Use Topics Alcohol use: No Drug use: No Current Medications Current Outpatient Medications Medication Sig atorvastatin (LIPITOR) 20 mg tablet 1 PO at bedtime OZEMPIC 0.25 mg or 0.5 mg(2 mg/1.5 mL) pen INJECT 0.5 mg SUBCUTANEOUSLY EVERY WEEK predniSONE (DELTASONE) 5 mg tablet Take 1 tablet by mouth as needed. Take 1 tablet by mouth daily as needed metFORMIN (GLUCOPHAGE) 850 mg tablet TAKE 1 TABLET BY MOUTH DAILY WITH BREAKFAST & supper folic acid 1 mg tablet Take 2 tablets by mouth once daily. methotrexate 2.5 mg tablet Take 8 tablets by mouth one time a week. No current facility-administered medications for this visit. Labs CBC Latest Ref Rng & Units 07/27/2010 05/10/2018 11/09/2022 WBC 3.70 - 11.00 k/uL 7.95 6.76 6.38 HEMOGLOBIN 11.5 - 15.5 g/dL 15.5 14.6 15.0 HEMATOCRIT 36.0 - 46.0 % 46.8(H) 44.4 46.4(H) PLATELETS 150 - 400 k/uL 222 229 231 ABS NEUT (ANC) 1.45 - 7.50 k/uL 4.52 - 3.73 ABS LYMPH 1.00 - 4.00 k/uL 2.82 - 1.94 CMP Latest Ref Rng & Units 07/27/2010 05/10/2018 11/09/2022 SODIUM 136 - 144 mmol/L 141 137 140 POTASSIUM 3.7 - 5.1 mmol/L 4.3 4.3 4.3 CHLORIDE 97 - 105 mmol/L 104 97 104 CO2 22 - 30 mmol/L 28 25 25 GLUCOSE 74 - 99 mg/dL 119(H) 219(H) 124(H) BUN 7 - 21 mg/dL 16 18 14 CREATININE 0.58 - 0.96 mg/dL 0.91 0.71 1.04(H) CALCIUM, TOTAL 8.5 - 10.2 mg/dL 9.6 9.8 9.6 AST 13 - 35 U/L 15 16 16 ALT 7 - 38 U/L 16 17 15 ALKALINE PHOSPHATASE 34 - 123 U/L 76 75 72 ESR, WSR Latest Ref Rng & Units 05/10/2018 11/09/2022 WSR 0 - 20 mm/hr 8 6 CRP Latest Ref Rng & Units 05/10/2018 11/09/2022 CRP <0.9 mg/dL 0.3 <0.3 CK Latest Ref Rng & Units 07/29/2010 CK 30 - 220 U/L 75 RF and CCP Latest Ref Rng & Units 05/10/2018 11/09/2022 RHEUMATOID FACTOR <16 IU/mL 23(H) 49(H) CCP ANTIBODY IGG QUALITATIVE Negative - Strong Positive(A) CCP ANTIBODY, IGG <20 Units 25(H) >250(H) Hepatitis Screen Latest Ref Rng & Units 05/10/2018 11/09/2022 HEPBCOTOL Negative Negative Negative HEPSABQ Positive Negative Negative(A) HEPCABEIA Negative Negative Negative HBSAG Negative - Negative HBSAGR Negative Negative - TB Screen 05/10/2018 11/09/2022 TBGINT No evidence of current or previous infection with Mycobacterium tuberculosis. Infection with M. tuberculosis complex is unlikely. If latent tuberculosis infection is highly suspected, a negative result does not rule out the infection. Specimens from immunocompromised patients and those <5 years of age may show false negative results. In case of a contact investigation, please repeat 8-12 weeks after a known exposure. TBGRES Negative Negative Vitamin D Latest Ref Rng & Units 05/10/2018 11/09/2022 VITAMIN D 25 HYDROXY 31.0 - 80.0 ng/mL 26.0(L) 31.8 Imaging Last XR Hand/Finger - Impression Only XR HAND GENERAL 3V PA/LAT/OBL BILATERAL Exam End: 11/09/2022 3:01 PM (Final result) Impression: IMPRESSION: 1. Mild osteoarthritis of the bilateral hands. Cap And Stud 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: MAGDA Transcribe Date/Time: Nov 10 2022 8:57A ... Last MRI Hand - Impression Only No resulted procedures found. Last XR Chest - Impression Only No resulted procedures found. Last XR Cervical Spine - Impression Only No resulted procedures found. Health Maintenance Current Immunizations Never Reviewed Name Date COVID-19 vaccine, bivalent (MODERNA) 08/10/2022 COVID-19 vaccine, monovalent (MODERNA) 12/15/2021 , 05/20/2021 , 10/29/2020 , 10/01/2020 Physical Exam VITAL SIGNS: BP 128/62 Pulse 66 Wt 172 lb (78.0kg) GENERAL APPEARANCE: Well groomed. In no distress. SKIN: No rash, thickening, nodules, calcifications, discoloration. EYES: PERRL, EOMI HENT: Normal external examination of the ears and nose, lips, oropharynx and tongue. No oropharyngeal lesions, exudate, or sores. NECK: No mass or asymmetry, no lymphadenopathy. RESPIRATORY: Normal respiratory effort. Clear to auscultation, no wheeze. CARDIOVASCULAR: regular, normal rate, normal heart sounds, no murmur or rub ABDOMEN: BS normal. No bruits, NEUROLOGIC: Alert and oriented x 3. Motor exam: Normal muscle strength grossly. Normal bulk and tone. MUSCULOSKELETAL EXAMINATION: Soft tissue tender points: None Upper extremities: Shoulders: no tenderness to palpation. No swelling or effusion. Elbows: Full ROM in flexion and extension. No swelling or effusion. No tenderness to palpation to the joint line, olecranon, medial or lateral epicondyles. Wrists: Full ROM in all solis. No swelling or synovitis. No pain with pronation/supination. No tenderness to palpation Hands: Full ROM in flexion and extension. Full hydrometallurgical engineer strength. No synovitis, no tenderness over MCPs, PIPs and DIPs Lower extremities: Knees: Full ROM in flexion and extension. No swelling or effusion. No tenderness to palpation. Ankles: Full ROM in all solis. No swelling or effusion. No tenderness to palpation along the joint line, medial/lateral malleolus, ATFL, PTFL, CFL, or Achilles Tendon. Feet: No effusion. No tenderness to palpation. No evidence of MTP swelling. Diagnoses: (M05.79) Rheumatoid arthritis involving multiple sites with positive rheumatoid factor (HCC) (primary encounter diagnosis) (Z79.899) Encounter for long-term (current) use of medications Impression and Plan 1. Seropositive Rheumatoid arthritis, non erosive, non nodular Manifestations- Joint pain with swelling, synovitis, RF 23, CCP 25, good response to methotrexate and prednisone Status- Patient reports that her joint pain and swelling is better since increasing dose of methotrexate, no synovitis or tenderness on exam today Currently on MTX 20 mg weekly with folic acid 1 mg daily Plan Continue methotrexate 20 mg weekly Increase dose of folic acid to 2 mg daily due to oral ulcers advised to limit use of prednisone Consider adding sulfasalazine or leflunomide if she continues to have high disease activity Avoid hydroxychloroquine due to history of macular degeneration Avoid TNF inhibitor due to history of histoplasmosis and right eye 2. Monitoring for drug toxicity CBC/AST/ALT/albumin/creatinine to monitor methotrexate toxicity today TB screening, hep B/C negative in 10/2022 3. Healthcare maintenance/Malignancy screening Defer to PCP Orders this visit: Office Visit on 02/08/23 CREATININE BLD ALBUMIN BLD AST/SGOT BLD CBC + DIFF ALT/SGPT folic acid 1 mg tablet methotrexate 2.5 mg tablet Return in about 3 months (around 05/11/2023). I spent a total of 61 minutes on the date of the service which included preparing to see the patient, [id number] patient care, completing clinical documentation, obtaining and/or reviewing separately obtained history, performing a medically appropriate examination, counseling and educating the patient/family/caregiver, and ordering medications, tests, or procedures. ___ Harish Marshall MD, [facility] Rheumatology documented in this encounter [facility] 11-09-2022 Note HNO ID: [id number] Author: RT Bk(R) Service: ? Author Type: Technologist Type: Progress Notes Filed: 11/09/2022 2:59 PM Note Text: Radiology Service Progress Note PATIENT NAME: Yamile Rose DATE OF SERVICE: November 09, 2022 TIME: 2:59 PM PATIENT IDENTITY VERIFICATION COMPLETED USING TWO (2) IDENTIFIERS: Name and Date of confirmed by patient verbally. FALL SCREENING: Has the patient had 2 falls in the last year or 1 fall with injury or currently using an Ambulatory Assistive Device (Walker, Cane, Wheelchair, Crutches, etc.)? No PATIENT GENDER DATA: Female. status: : No status: N/A PATIENT RELEVANT IMPLANT DATA REVIEWED: Not Applicable RADIOLOGY DEPARTMENT: General X-ray: Exam(s) Completed: Lower Extremity X-Ray(s): Foot, Bilateral and Wt. Bearing Upper Extremity X-Ray(s): Hand, bilateral PERIPHERAL IV DATA: Not applicable SIGNED BY: RT Bk(R) November 09, 2022 2:59 PM [facility] 11-09-2022 Note HNO ID: [id number] Author: Harish Marshall MD Service: ? Author Type: Physician Type: Progress Notes Filed: 11/09/2022 2:19 PM Note Text: Rheumatology Outpatient Clinic Date of Service: 11/09/2022 Patient: Yamile Rose Medical Record: [id number] Primary Care Physician: Aleksander Jimenez MD Referring Provider: SELF Last Rheumatology visit: 06/27/2018 (with Dinorah Santiago) Chief complaint: Consult Self referral requested for an opinion regarding RA. My final recommendations will be communicated back to the requesting physician by way of shared Medical record or letter to requesting physician via US mail. History of Present Illness Yamile Rose is a 67 year old White female with medical history of rheumatoid arthritis, hyperlipidemia, diabetes mellitus, history of tobacco use, Histoplasmosis right eye in 2004 ( treated), macular degeneration ( blind right eye central vision), presents on 11/09/2022 for an in-person visit for evaluation of Consult. She is currently taking methotrexate sodium, naproxen, prednisone. Yamile is both RF - 23 (05/10/2018) and CCP - 25 (05/10/2018) positive. HISTORY OF PRESENT ILLNESS History of rheumatoid arthritis She was being followed by local rheumatology in [place], but her daughter wanted her to get a 2nd opinion at [facility]. Seen by Dr. Livingston in 05/2018 Her local rheum added methotrexate which she started after her visit here in 05/2018 She was following with chief operator hydroformer at [place] however her insurance will know more cover the chief operator hydroformer in [place] so she came back to [facility]. Patient reports pain over MCPs, PIPs, wrists, elbows, shoulders, hips, knees, toes- She also reports intermittent MCPs and PIPs swelling She thinks methotrexate has helped decrease the joint swelling however has not completely resolved. She reports she has good days and bad days and winter is worst. She takes prednisone 5 mg to 15 mg once every 3 to 4 days for intermittent flares Pain is worst in am and also if she is more active. EMS- 1 hour Denies history of inflammatory eye disease, inflammatory bowel disease, psoriasis, history of kidney disease/biopsy, nephrolithiasis, peptic ulcer disease, miscarriages, blood clots, malignancy, pleural/pericardial effusion, CHF, CAD, CVA. 04/2018 RF 23 CCP 25 Sed rate/CRP normal TB screening negative Hepatitis B/C negative Radiograph bilateral feet 04/2018-Mild pes cavus bilaterally. Small calcaneal enthesophytes bilaterally. No erosions. Radiograph lumbar spine 04/2018-Minimal grade 1 anterolisthesis of L4 on L5. Disc heights are normal. Degenerative facet changes in the lower lumbar spine. Patient-Entered Data PAIN EVALUATION No data found in the last 1 encounters. PROMIS Assessments PROMIS Assessments 05/10/2018 11/08/2022 Physical Health Percentile 15.39 % 22 % Mental Health Percentile 18.67 % 26 % Pain Score 8 3 Pain Interference Percentile - 12 % Fatigue Percentile - 38 % Physical Function Percentile - 21 % RAPID 3 [place]arr Activities of Daily Living 11/08/2022 11:32 AM Dress self? With SOME difficulty Get in and out of bed? With SOME difficulty Walk outdoors? With SOME difficulty Wash and dry body? With SOME difficulty Get in and out of car? With SOME difficulty RAPID 3 Disease Activity Weighed Score Levels: 0 - 1: Near Remission 1.3 - 2.0: Low Severity 2.3 - 4.0: Moderate Severity 4.3 - 10.0: High Severity RAPID-3 Weighed Score 05/10/2018 06/27/2018 11/08/2022 RAPID 3 Weighed Score 6.8 5.7 - RAPID 3 Weighed Score - - 4.78 (High Severity (HS)) Review of Systems Review of Systems CONSTITUTION: HEENT: Positive for: Dry mouth RESPIRATORY: Negative for: Cough, Shortness of breath and Pain with breathing GASTROINTESTINAL: Negative for: Melena, Diarrhea, Heartburn and Abdominal pain MUSCULOSKELETAL: Positive for: Arthralgias, Myalgias, Muscle weakness, Joint swelling and Morning Joint Stiffness NEUROLOGICAL: SKIN: Negative for: Rash, Skin changes, Hair loss and Nail changes EYES: Positive for: Eye dryness Negative for: Eye pain, Eye redness and visual disturbance CARDIOVASCULAR: Negative for: Chest pain and Leg swelling GENITOURINARY: HEMATOLOGIC/LYMPHATIC: Negative for: Swollen glands Raynaud's: Denies Sicca: Denies Past Medical History PAST MEDICAL HISTORY Diagnosis Date Hyperlipidemia 07/27/2010 Macular degeneration 07/27/2010 Normal coronary arteries 07/2010 [facility] performed for evaluation chest pain, abnormal stress test UTI (urinary tract infection) 07/27/2010 Past Surgical History PAST SURGICAL HISTORY Procedure Laterality Date CARPAL TUNNEL HYSTERECTOMY HX 1992 LIG/TRNSXJ FLP TUBE ABDL/VAG APPR UNI/BI in the OVARIAN CYSTECTOMY in the Allergy ALLERGIES Allergen Reactions Cefuroxime Hives Family History The patient denies family history of SLE, RA, Sarcoidosis, Scleroderma, IB (more content not included)... [facility] 11-09-2022 History of Present illness Narrative Radiology Service Progress Note PATIENT NAME: Yamile Rose DATE OF SERVICE: November 09, 2022 TIME: 2:59 PM PATIENT IDENTITY VERIFICATION COMPLETED USING TWO (2) IDENTIFIERS: Name and Date of confirmed by patient verbally. FALL SCREENING: Has the patient had 2 falls in the last year or 1 fall with injury or currently using an Ambulatory Assistive Device (Walker, Cane, Wheelchair, Crutches, etc.)? No PATIENT GENDER DATA: Female. status: : No status: N/A PATIENT RELEVANT IMPLANT DATA REVIEWED: Not Applicable RADIOLOGY DEPARTMENT: General X-ray: Exam(s) Completed: Lower Extremity X-Ray(s): Foot, Bilateral and Wt. Bearing Upper Extremity X-Ray(s): Hand, bilateral PERIPHERAL IV DATA: Not applicable SIGNED BY: RT Bk(R) November 09, 2022 2:59 PM documented in this encounter [facility] 11-09-2022 History of Present illness Narrative Images from the original note were not included. Rheumatology Outpatient Clinic Date of Service: 11/09/2022 Patient: Yamile Rose Medical Record: [id number] Primary Care Physician: Aleksander Jimenez MD Referring Provider: SELF Last Rheumatology visit: 06/27/2018 (with Dinorah Santiago) Chief complaint: Consult Self referral requested for an opinion regarding RA. My final recommendations will be communicated back to the requesting physician by way of shared Medical record or letter to requesting physician via US mail. 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 She is currently taking methotrexate sodium, naproxen, prednisone. Yamile is both RF - 23 (05/10/2018) and CCP - 25 (05/10/2018) positive. HISTORY OF PRESENT ILLNESS History of rheumatoid arthritis She was being followed by local rheumatology in [place], but her daughter wanted her to get a 2nd opinion at [facility]. Seen by Dr. Livingston in 05/2018 Her local rheum added methotrexate which she started after her visit here in 05/2018 She was following with chief operator hydroformer at [place] however her insurance will know more cover the chief operator hydroformer in [place] so she came back to [facility]. Patient reports pain over MCPs, PIPs, wrists, elbows, shoulders, hips, knees, toes- She also reports intermittent MCPs and PIPs swelling She thinks methotrexate has helped decrease the joint swelling however has not completely resolved. She reports she has good days and bad days and winter is worst. She takes prednisone 5 mg to 15 mg once every 3 to 4 days for intermittent flares Pain is worst in am and also if she is more active. EMS- 1 hour Denies history of inflammatory eye disease, inflammatory bowel disease, psoriasis, history of kidney disease/biopsy, nephrolithiasis, peptic ulcer disease, miscarriages, blood clots, malignancy, pleural/pericardial effusion, CHF, CAD, CVA. 04/2018 RF 23 CCP 25 Sed rate/CRP normal TB screening negative Hepatitis B/C negative Radiograph bilateral feet 04/2018-Mild pes cavus bilaterally. Small calcaneal enthesophytes bilaterally. No erosions. Radiograph lumbar spine 04/2018-Minimal grade 1 anterolisthesis of L4 on L5. Disc heights are normal. Degenerative facet changes in the lower lumbar spine. Patient-Entered Data PAIN EVALUATION No data found in the last 1 encounters. PROMIS Assessments PROMIS Assessments 05/10/2018 11/08/2022 Physical Health Percentile 15.39 % 22 % Mental Health Percentile 18.67 % 26 % Pain Score 8 3 Pain Interference Percentile - 12 % Fatigue Percentile - 38 % Physical Function Percentile - 21 % RAPID 3 Starr Activities of Daily Living 11/08/2022 11:32 AM Dress self? With SOME difficulty Get in and out of bed? With SOME difficulty Walk outdoors? With SOME difficulty Wash and dry body? With SOME difficulty Get in and out of car? With SOME difficulty RAPID 3 Disease Activity Weighed Score Levels: 0 - 1: Near Remission 1.3 - 2.0: Low Severity 2.3 - 4.0: Moderate Severity 4.3 - 10.0: High Severity RAPID-3 Weighed Score 05/10/2018 06/27/2018 11/08/2022 RAPID 3 Weighed Score 6.8 5.7 - RAPID 3 Weighed Score - - 4.78 (High Severity (HS)) Review of Systems Review of Systems CONSTITUTION: HEENT: Positive for: Dry mouth RESPIRATORY: Negative for: Cough, Shortness of breath and Pain with breathing GASTROINTESTINAL: Negative for: Melena, Diarrhea, Heartburn and Abdominal pain MUSCULOSKELETAL: Positive for: Arthralgias, Myalgias, Muscle weakness, Joint swelling and Morning Joint Stiffness NEUROLOGICAL: SKIN: Negative for: Rash, Skin changes, Hair loss and Nail changes EYES: Positive for: Eye dryness Negative for: Eye pain, Eye redness and visual disturbance CARDIOVASCULAR: Negative for: Chest pain and Leg swelling GENITOURINARY: HEMATOLOGIC/LYMPHATIC: Negative for: Swollen glands Raynaud's: Denies Sicca: Denies Past Medical History PAST MEDICAL HISTORY Diagnosis Date Hyperlipidemia 07/27/2010 Macular degeneration 07/27/2010 Normal coronary arteries 07/2010 [facility] performed for evaluation chest pain, abnormal stress test UTI (urinary tract infection) 07/27/2010 Past Surgical History PAST SURGICAL HISTORY Procedure Laterality Date CARPAL TUNNEL HYSTERECTOMY HX 1991 LIG/TRNSXJ FLP TUBE ABDL/VAG APPR UNI/BI in the OVARIAN CYSTECTOMY in the Allergy ALLERGIES Allergen Reactions Cefuroxime Hives Family History The patient denies family history of SLE, RA, Sarcoidosis, Scleroderma, IBD or Psoriasis. FAMILY HISTORY Problem Relation Age of Onset Ischemic Heart Disease Father other (liver ca) Father age 78 liver CA; CAD other (bladder ca) Mother age 59 bladder CA Heart Brother valvular heart disease Social History Social History Tobacco Use Smoking status: Former Packs/day: 0.75 Years: 40.00 Pack years: 30.00 Types: Cigarettes Quit date: 07/24/2015 Years since quittin.3 Smokeless tobacco: Never Tobacco comments: active smoker for about 40 years about 1 pk per day; quit 2015 Substance Use Topics Alcohol use: No Drug use: No Current Medications Current Outpatient Medications Medication Sig atorvastatin (LIPITOR) 20 mg tablet 1 PO at bedtime OZEMPIC 0.25 mg or 0.5 mg(2 mg/1.5 mL) pen INJECT 0.5 mg SUBCUTANEOUSLY EVERY WEEK metFORMIN (GLUCOPHAGE) 850 mg tablet TAKE 1 TABLET BY MOUTH DAILY WITH BREAKFAST & supper methotrexate 2.5 mg tablet Take 8 tablets by mouth one time a week. folic acid 1 mg tablet Take 1 tablet by mouth once daily. predniSONE (DELTASONE) 5 mg tablet Take 1 tablet by mouth as needed. Take 1 tablet by mouth daily as needed No current facility-administered medications for this visit. Labs CBC Latest Ref Rng & Units 07/27/2010 05/10/2018 WBC 3.70 - 11.00 k/uL 7.95 6.76 HEMOGLOBIN 11.5 - 15.5 g/dL 15.5 14.6 HEMATOCRIT 36.0 - 46.0 % 46.8(H) 44.4 PLATELETS 150 - 400 k/uL 222 229 ABS NEUT (ANC) 1.45 - 7.50 k/uL 4.52 - ABS LYMPH 1.00 - 4.00 k/uL 2.82 - CMP Latest Ref Rng & Units 07/27/2010 05/10/2018 SODIUM 136 - 144 mmol/L 141 137 POTASSIUM 3.7 - 5.1 mmol/L 4.3 4.3 CHLORIDE 97 - 105 mmol/L 104 97 CO2 22 - 30 mmol/L 28 25 GLUCOSE 74 - 99 mg/dL 119(H) 219(H) BUN 7 - 21 mg/dL 16 18 CREATININE 0.58 - 0.96 mg/dL 0.91 0.71 CALCIUM, TOTAL 8.5 - 10.2 mg/dL 9.6 9.8 AST 13 - 35 U/L 15 16 ALT 7 - 38 U/L 16 17 ALKALINE PHOSPHATASE 34 - 123 U/L 76 75 ESR, WSR Latest Ref Rng & Units 05/10/2018 WSR 0 - 20 mm/hr 8 CRP Latest Ref Rng & Units 05/10/2018 CRP <0.9 mg/dL 0.3 CK Latest Ref Rng & Units 07/29/2010 CK 30 - 220 U/L 75 RF and CCP Latest Ref Rng & Units 05/10/2018 RHEUMATOID FACTOR <16 IU/mL 23(H) CCP ANTIBODY, IGG <20 Units 25(H) Hepatitis Screen Latest Ref Rng & Units 05/10/2018 HEPBCOTOL Negative Negative HEPSABQ Negative Negative HEPCABEIA Negative Negative HBSAGR Negative Negative TB Screen Latest Ref Rng & Units 05/10/2018 TBGINT - No evidence of current or previous infection with Mycobacterium tuberculosis. TBGRES Negative Negative Vitamin D Latest Ref Rng & Units 05/10/2018 VITAMIN D 25 HYDROXY 31.0 - 80.0 ng/mL 26.0(L) Imaging Last XR Hand/Finger - Impression Only No resulted procedures found. Last MRI Hand - Impression Only No resulted procedures found. Last XR Chest - Impression Only No resulted procedures found. Last XR Cervical Spine - Impression Only No resulted procedures found. Health Maintenance Current Immunizations Never Reviewed Name Date COVID-19 vaccine, bivalent (MODERNA) 08/10/2022 COVID-19 vaccine, monovalent (MODERNA) 12/15/2021 , 05/20/2021 , 10/29/2020 , 10/01/2020 Physical Exam VITAL SIGNS: BP 118/65 Pulse 86 Ht 5' 7 (1.70m) Wt 178 lb (80.7kg) SpO2 94% BMI 27.87 kg/(m^2). GENERAL APPEARANCE: Well groomed. In no distress. SKIN: No rash, thickening, nodules, calcifications, discoloration. EYES: PERRL, EOMI HENT: Normal external examination of the ears and nose, lips, oropharynx and tongue. No oropharyngeal lesions, exudate, or sores. NECK: No mass or asymmetry, no lymphadenopathy. RESPIRATORY: Normal respiratory effort. Clear to auscultation, no wheeze. CARDIOVASCULAR: regular, normal rate, normal heart sounds, no murmur or rub ABDOMEN: BS normal. No bruits, NEUROLOGIC: Alert and oriented x 3. Motor exam: Normal muscle strength grossly. Normal bulk and tone. MUSCULOSKELETAL EXAMINATION: Soft tissue tender points: None Upper extremities: Shoulders: Full ROM in all directions, no tenderness to palpation. No swelling or effusion. Elbows: Full ROM in flexion and extension. No swelling or effusion. No tenderness to palpation to the joint line, olecranon, medial or lateral epicondyles. Wrists: Full ROM in all solis. No swelling or synovitis. No pain with pronation/supination. No tenderness to palpation Hands: Full ROM in flexion and extension. Full hydrometallurgical engineer strength. synovitis along the right long MCP, right little PIP, tenderness over MCPs and PIPs Lower extremities: Knees: Full ROM in flexion and extension. No swelling or effusion. No tenderness to palpation. Ankles: Full ROM in all solis. No swelling or effusion. No tenderness to palpation along the joint line, medial/lateral malleolus, ATFL, PTFL, CFL, or Achilles Tendon. Feet: No effusion. No tenderness to palpation. No evidence of MTP swelling. Diagnoses: (M05.79) Rheumatoid arthritis involving multiple sites with positive rheumatoid factor (HCC) (primary encounter diagnosis) Impression and Plan 1. Seropositive Rheumatoid arthritis: Manifestations- Joint pain with swelling, synovitis, RF 23, CCP 25, good response to methotrexate and prednisone Status- Patient reports that her joint swelling is better with methotrexate but not completely resolved. Currently on MTX 15 mg weekly, takes 5-15 mg prednisone once every 3-4 days Plan Increase dose of methotrexate to 20 mg weekly Continue folic acid 1 mg daily Advised to limit use of prednisone Repeat radiographs hands and feet 2. Monitoring for drug toxicity CBC/CMP to monitor methotrexate toxicity today TB screening, hep B/C today 3. Healthcare maintenance/Malignancy screening Defer to PCP Orders this visit: Office Visit on 11/09/22 XR FOOT GENERAL 3V AP/LAT/OBL BILATERAL XR HAND GENERAL 3V PA/LAT/OBL BILATERAL CCP ANTIBODY IGG RHEUMATOID FACTOR BL SED RATE WESTERGREN C-REACTIVE PROTEIN (CRP) COMP METABOLIC PANEL CBC + DIFF HEP B SURF AB HEP C AB IA W/CONF SCRN HEP B SURF AG SCRN HEP B CORE AB TOTAL BLOOD TB SCREEN VITAMIN D 25 HYDROXY atorvastatin (LIPITOR) 20 mg tablet predniSONE (DELTASONE) 5 mg tablet *Discontinued* OZEMPIC 0.25 mg or 0.5 mg(2 mg/1.5 mL) pen methotrexate 2.5 mg tablet folic acid 1 mg tablet predniSONE (DELTASONE) 5 mg tablet Return in about 3 months (around 02/08/2023). I spent a total of 61 minutes on the date of the service which included preparing to see the patient, [id number] patient care, completing clinical documentation, obtaining and/or reviewing separately obtained history, performing a medically appropriate examination, counseling and educating the patient/family/caregiver, and ordering medications, tests, or procedures. ___ Harish Marshall MD, [facility] Rheumatology documented in this encounter [facility] Evaluation + Plan note Future Appointments Appointment Date:04/10/2023 01:40:00 PM Scheduled Provider:Navjot KAYE, Julee Byers Location:[facility] Appointment Type: [facility] Diff 01/09/23Comprehensive Metabolic Panel 01/09/23Lipid Panel 01/09/23TSH With T4fr Reflex 01/09/[id number] 01/09/23Microalbumin Level Urine 01/09/23U Protein/Creat Ratio 01/09/23 [facility] Evaluation note No assessment inform ation available [facility] Work Phone: Evaluation note Diagnosis Rheumatoid arthritis involving multiple sites with positive rheumatoid factor (HCC)- Primary [facility] Rheumatoid arthritis involving multiple sites with positive rheumatoid factor (HCC)- Primary Encounter for long-term (current) use of medications Encounter for long-term (current) use of other medications [facility] Rheumatoid arthritis involving multiple sites with positive rheumatoid factor (HCC)- Primary Encounter for long-term (current) use of medications Encounter for long-term (current) use of other medications Thoracic back pain, unspecified back pain laterality, unspecified chronicity [facility] Thoracic back pain, unspecified back pain laterality, unspecified chronicity [facility] N[facility] No data available for this section [facility] Additional Instructions POST CATARACT SURGERY INSTRUCTIONS EYEDROPS First day (24 hours) Ocuflox or Vigamox and Pred Forte-use 1 drop to operative eye every hour while awake. Artificial tears- May use 1 drop 4 times a day as needed in the surgical eye. Next day Ocuflox or Vigamox-continue to use the drop in the surgery eye 4 times per day for 1 week. Pred Forte-start using the drop in the surgery eye 4 times per day for 1 week, then taper to 3 times per day for 1 week, 2 times a day for 1 week, then once a day for 1 week. Artificial tears- May use 1 drop 4 times a day as needed in the surgical eye. -Wait 5 minutes or more between using the different medications. -Please bring all your eyedrops to every follow-up visit. BATHING: You may shower, bathe, or wash her hair normally after the surgery. SUNGLASSES: Please bring sunglasses for your ride home. Some people are light- sensitive for a few weeks following surgery. Wear sunglasses for comfort. Sunglasses are not required. DUE TO ANESTHESIA: DO NOT make complex decision/sign legal documents for 24 hours after your procedure. No smoking or drinking alcohol for 24 hours. EYE RUBBING: DO NOT RUB YOUR EYE for at least 4 weeks. BLUR: Blurriness is common for several days to weeks. IRRITATION: Mild irritation or watering eye is common. MEDICATION: Continue/resume normal medications, including eye drops. Patient educated on importance of managing medication information: -Give list of medications to primary care physician. -Update information when medications are discontinued, doses are changed or new medications added. -Carry medication list with you at all times in case of emergency. Call if questions/problems occur: If you experience 1. Persistent pain/vomiting 2. Sudden worsening of your eyesight. Please call your aeronautical drafter during normal business hours. If after business hours call Dr. Balwinder Hankins at his cell [phone] or his office [phone].[facility] Work Phone: Hospital Discharge instructions No data available for this section [facility] No data available for this section [facility] Diagnostic Procedure Only (Routine) - Closed Specialty Diagnoses / Procedures Referred By Contac t Referred To Contact XR IMAGING Diagnoses Rheumatoid arthritis involving multiple sites with positive rheumatoid factor (HCC) Procedures XR HAND GENERAL 3V PA/LAT/OBL BILATERAL RADEX HAND MINIMUM 3 VIEWS Harish Marshall MD [address] [place] [address] Xr Imaging Referral ID Status Reason Start Date Expiration Date V isits Requested Visits Authorized [id number] Closed Auto-Generate d Referral 11/09/2022 12/09/2023 1 1 * Diagnostic Procedure Only (Routine) - Closed Specialty Diagnoses / Procedures Referred By Noé sousa Referred To Contact XR IMAGING Diagnoses Rheumatoid arthritis involving multiple sites with positive rheumatoid factor (HCC) Procedures XR FOOT GENERAL 3V AP/LAT/OBL BILATERAL RADEX FOOT COMPLETE MINIMUM 3 VIEWS Harish Marshall MD [address] [place] [address] Xr Imaging Referral ID Status Reason Start Date Expiration Date V isits Requested Visits Authorized [id number] Closed Auto-Generate d Referral 11/09/2022 12/09/[address] [facility] for referral (narrative)* Diagnostic Procedure Only (Routine) - Closed Specialty Diagnoses / Procedures Referred By Contac t Referred To Contact XR IMAGING Diagnoses Thoracic back pain, unspecified back pain laterality, unspecified chronicity Procedures XR THORACIC GENERAL 3V AP/LAT/SWIMMERS RADEX SPINE THORACIC 3 VIEWS Harish Marshall MD [address] [place] [phone] Xr Imaging [facility] Referral ID Status Reason Start Date Expiration Date V isits Requested Visits Authorized [id number] Closed Auto-Generate d Referral 05/10/2023 06/08/2024 1 1 * Physical Therapy (Routine) - Pending Review Specialty Diagnoses / Procedures Referred By Contac t Referred To Contact [facility] Diagnoses Rheumatoid arthritis involving multiple sites with positive rheumatoid factor (HCC) Encounter for long-term (current) use of medications Procedures CONSULT TO PHYSICAL THERAPY PHYSICAL THERAPY EVALUATION HIGH COMPLEX 45 MINS Harish Marshall MD [address] [place] [address] [facility] [place] [phone] Referral ID Status Reason Start Date Expiration Date Visits Requested Visits Authorized [id number] Pending Review Auto-Generat ed Referral 05/09/[address] [facility] for referral (narrative)* Diagnostic Procedure Only (Routine) - Closed Specialty Diagnoses / Procedures Referred By Contac t Referred To Contact XR IMAGING Diagnoses Thoracic back pain, unspecified back pain laterality, unspecified chronicity Procedures XR THORACIC GENERAL 3V AP/LAT/SWIMMERS RADEX SPINE THORACIC 3 VIEWS Harish Marshall MD [address] [place] [address] Xr Imaging [facility] Referral ID Status Reason Start Date Expiration Date V isits Requested Visits Authorized [id number] Closed Auto-Generate d Referral 05/10/2023 06/08/2024 1 1 [facility] Diagnostic Procedure Only (Routine) - Closed Specialty Diagnoses / Procedures Referred By Contac t Referred To Contact XR IMAGING Diagnoses Thoracic back pain, unspecified back pain laterality, unspecified chronicity Procedures XR THORACIC GENERAL 3V AP/LAT/SWIMMERS RADEX SPINE THORACIC 3 VIEWS Harish Marshall MD [address] [place] [phone] Xr Imaging [place] [address] Referral ID Status Reason Start Date Expiration Date V isits Requested Visits Authorized [id number] Closed Auto-Generate d Referral 05/10/2023 06/08/2024 1 1 [facility] Chief Complaint and Reason for Visit Chief Complaint Left Cataract Chief Complaint Left Cataract Left Cataract Family History No Family History Records Found Relationship Condition Age at Onset Recorded Date/T charles father Malignant neoplasm of liver Unknown Not Specified Diabetes mellitus Unknown Malignant neoplasm of urinary bladder Unk nown brother History of coronary artery bypass surgery Unknown Diabetes mellitus Unknown Advance Directives No Advanced Directives Records Found Advance Directive Response Recorded Date/ Time Advance Directives No January 08 11:24am Summary Purpose Additional Source Comments Care Teams (unrecognized sec tion and content) Team Status: Inactive Member Role Status Dates Aleksander Jimenez MD Primary Care Provider Active Balwinder Hankins MD Attending Provider Active Team Status: Active Member Role Status Dates Aleksander Jimenez MD Primary Care Provider Active Regional Service Manager Relationship Specialty Start Date End Date Aleksander Jimenez MD [address] [place] [address] PCP - General Family Medicine 07/27/10 Alida Bernardo MD [address] [place] [address] Primary Staff Physician Cardiology 10/09/18 Regional Service Manager Relationship Specialty Start Date End Date Aleksander Jimenez MD [address] [place] [address] PCP - General Family Medicine 07/27/10 Alida Bernardo MD [address] [place] [address] Primary Staff Physician Cardiology 10/09/18 Regional Service Manager Relationship Specialty Start Date End Date Aleksander Jimenez MD [address] [place] [address] PCP - General Family Medicine 07/27/10 Alida Bernardo MD [address] [place] [address] Primary Staff Physician Cardiology 10/09/18 Regional Service Manager Relationship Specialty Start Date End Date Aleksander Jimenez MD [address] [place] [address] PCP - General Family Medicine 07/27/10 Alida Bernardo MD [address] [place] [address] Primary Staff Physician Cardiology 10/09/18 Regional Service Manager Relationship Specialty Start Date End Date Aleksander Jimenez MD [address] [place] [address] PCP - General Family Medicine 07/27/10 Alida Bernardo MD [address] [place] [address] Primary Staff Physician Cardiology 10/09/18 Regional Service Manager Relationship Specialty Start Date End Date Aleksander Jimenez MD [address] [place] [address] PCP - General Family Medicine 07/27/10 Alida Bernardo MD [address] [place], [place] [phone] Primary Staff Physician Cardiology 10/09/18 Goals (unrecognized section and content) Goals may be documented in a n alternate section No data available for this section No data available for this section INFORMATION SOURCE (unrecogn ized section and content) DATE CREATED AUTHOR 07/17/2022 [facility] DATE CREATED AUTHOR AUTHOR'S ORGANIZ ATION 10/02/[address] [facility] DATE CREATED AUTHOR AUTHOR'S ORGANIZ ATION 08/17/2023 [facility] DATE CREATED AUTHOR AUTHOR'S ORGANIZ ATION 09/22/2023 [facility] Source Comments (unrecognize d section and content) In the event this informatio n is protected by the Federal Confidentiality of Alcohol and Drug Abuse Patient Records regulations: The Federal rules restrict any use of the information to criminally investigate or prosecute any alcohol or drug abuse patient.[facility] the event this information is protected by the Federal Confidentiality of Alcohol and Drug Abuse Patient Records regulations: The Federal rules restrict any use of the information to criminally investigate or prosecute any alcohol or drug abuse patient.[facility] the event this information is protected by the Federal Confidentiality of Alcohol and Drug Abuse Patient Records regulations: The Federal rules restrict any use of the information to criminally investigate or prosecute any alcohol or drug abuse patient.[facility] the event this information is protected by the Federal Confidentiality of Alcohol and Drug Abuse Patient Records regulations: The Federal rules restrict any use of the information to criminally investigate or prosecute any alcohol or drug abuse patient.[facility] the event this information is protected by the Federal Confidentiality of Alcohol and Drug Abuse Patient Records regulations: The Federal rules restrict any use of the information to criminally investigate or prosecute any alcohol or drug abuse patient.[facility] the event this information is protected by the Federal Confidentiality of Alcohol and Drug Abuse Patient Records regulations: The Federal rules restrict any use of the information to criminally investigate or prosecute any alcohol or drug abuse patient.[facility] Reason for Visit (unrecogniz ed section and content) Reason Comments Consult Reason Comments Radiology XR Reason Comments Follow Up Reason Comments Follow Up Pain Ongoing generalized pain. Refill Request FOR RECORDS PERTAINING TO PATIENTS WHO ARE OR HAVE BEEN ENROLLED IN A CHEMICAL DEPENDENCY/SUBSTANCEABUSE PROGRAM, SOME INFORMATION MAY BE OMITTED. This clinical summary was aggregated from multiple sources. Caution should be exercised in using it in the provision of clinical care. This summary normalizes information from multiple sources, and as a consequence, information in this document may materially change the coding, format and clinical context of patient data. In addition, data may be omitted in some cases. CLINICAL DECISIONS SHOULD BE BASED ON THE PRIMARY CLINICAL RECORDS. [employer] [facility]. provides no warranty or guarantee of the accuracy or completeness of information in this document.
== END 2023-09-25 13:31 | disposition home or self-care (01) ==
LOC: MAMMO 13:30
PROVIDERS: PCP Family Medicine; Visit Provider Nurse Practitioner
DX: Z00.00 Encounter for general adult medical examination without abnormal findings (principal); Z12.31 Encounter for screening mammogram for malignant neoplasm of breast; M81.0 Age-related osteoporosis without current pathological fracture; Z80.52 Family history of malignant neoplasm of bladder; Z80.8 Family history of malignant neoplasm of other organs or systems; M85.80 Other specified disorders of bone density and structure, unspecified site
CPT/HCPCS: 77063; 77067; 77080

== ENCOUNTER 2024-01-06 17:39 | Emergency (ER) | payer OTHER, MEDICAID, SELFPAY ==
[2024-01-06 17:45] VITALS: BP 147/86; PULSE 72; TEMP 36.4; O2SAT 100; BMI 25.2
--- NOTE | 2024-01-06 17:48 | PC.NURSE ---
left wrist pain started while working in garden at 3:30pm. pt states no direct injury but unable to move wrist. no swelling or redness, strong radial pulse to left wrist, ice pack in place
--- NOTE | 2024-01-06 17:53 | XR_ITS ---
The [address] [address] Patient Name: FAYE ROSE MRN: [id number] date: 1955 Sex: F Assigned Patient Location: ER Current Patient Location: ER Accession/Order Number: [id number] Exam Date: 01/06/2024 18:00 Report Date: 01/06/2024 19:11 At the request of: ASUNCION JAIME Procedure: XR hand LT min 3V EXAM: XR hand LT min 3V, XR wrist LT min 3V HISTORY: The patient is a 68-year-old female, left hand pain COMPARISON: None. FINDINGS: The left hand and left wrist are radiographically negative with no evidence of fracture, dislocation, significant joint space narrowing, osteophytes, or other osseous or articular abnormalities. XR/XR hand LT min 3V IMPRESSION: Negative left hand and left wrist. Electronically authenticated by: CAPRICE ALMANZAR Date: 01/06/2024 19:11
--- NOTE | 2024-01-06 17:53 | XR_ITS ---
The [address] [address] Patient Name: FAYE ROSE MRN: [id number] date: 1955 Sex: F Assigned Patient Location: ER Current Patient Location: ER Accession/Order Number: [id number] Exam Date: 01/06/2024 18:00 Report Date: 01/06/2024 19:11 At the request of: ASUNCION JAIME Procedure: XR wrist LT min 3V EXAM: XR hand LT min 3V, XR wrist LT min 3V HISTORY: The patient is a 68-year-old female, left hand pain COMPARISON: None. FINDINGS: The left hand and left wrist are radiographically negative with no evidence of fracture, dislocation, significant joint space narrowing, osteophytes, or other osseous or articular abnormalities. XR/XR wrist LT min 3V IMPRESSION: Negative left hand and left wrist. Electronically authenticated by: CAPRICE ALMANZAR Date: 01/06/2024 19:11
--- OUTSIDE RECORDS SUMMARY | 2024-01-06 17:54 | XMS_ITS | CCD ---
Author Organization [facility] CliniSynh Care Team Providers Care 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 Name Role Phone MD Aleksander Jimenez Primary Care Provider [phone] MD Balwinder Hankins Attending Provider Aleksander Jimenez Primary Care Unavailable Balwinder Hankins Attending Unavailable Balwinder Hankins Admitting Unavailable Tony, Aleksander Johnson Primary Care Unavailable Balwinder Hankins Attending Unavailable Balwinder Hankins Admitting Unavailable EVELYN, DR MADISON Ghotra Consulting Unavailyolanda e EVELYN, DR MADISON Ghotra Admitting Unavailabl e JIMENEZ [...] JIMENEZ ., DR ALEKSANDER Johnson Consulting Unavailable ZIEBNEGOR, DR MIRIAM Clark Consulting Unavailable JIMENEZ ., [...] Care Unavailable EVELYN, DR MADISON Ghotra Consulting Unavailyolanda e EVELYN, DR MADISON Ghotra Admitting Unavailabl e JIMENEZ ., DR ALEKSANDER Johnson Primary Care Unavailable BARRYECK, DR MADISON Ghotra Attending UnavailDR MIRIAM Matthews Consulting Unavailable Aleksander Jimenez MD Primary Care Provider [phone] Alida Bernardo MD Unavailable Julee De Los Santos Primary Care Physician Alida Bernardo MD Unavailable Julee De Los Santos MD Primary Care Provider Julee De Los Santos MD Primary Care Provider JOANNA, HARISH Referring Unavailable JIMENEZ, ALEKSANDER OVIDIO Primary Care Unavailable JOANNA, HARISH Referring Unavailable JOANNA, HARISH Attending Unavailable JIMENEZ, ALEKSANDER OVIDIO Primary Care Unavailable JOANNA, HARISH Referring Unavailable JIMENEZ, ALEKSANDER OVIDIO Primary Care Unavailable JIMENEZ, ALEKSANDER [place] Primary Care Unavailable JOANNA, HARISH Attending Unavailable JULEE DE LOS SANTOS Primary Care Unavailable JOANNA, HARISH Referring Unavailable JULEE DE LOS SANTOS Primary Care Unavailable JOANNA, HARISH Attending Unavailable JULEE DE LOS SANTOS Primary Care Unavailable JOANNA, HARISH Referring Unavailable JOANNA, HARISH Attending Unavailable JIMENEZ, ALEKSANDER OVIDIO Primary Care Unavailable JIMENEZ, ALEKSANDER OVIDIO Primary Care Unavailable JOANNA, HARISH Referring Unavailable MD Julee De Los Santos Attending Unavailable MD Julee De Los Santos Attending Unavailable MD Julee De Los Santos Attending Unavailable MD Julee De Los Santos Attending Unavailable MD Julee De Los Santos Attending Unavailable MD Julee De Los Santos Attending Unavailable MD Julee De Los Santos Attending Unavailable MD Julee De Los Santos Attending Unavailable Faith, TURBO GENERATOR OILER Silvia L Attending Unavailable MD Julee De Los Santos Attending Unavailable Faith, TURBO GENERATOR OILER Silvia L Attending Unavailable MD Julee De Los Santos Attending Unavailable Faith, TURBO GENERATOR OILER Silvia L Attending Unavailable MD Julee De Los Santos Attending Unavailable MD Julee De Los Santos Attending Unavailable JEANINE VAZQUEZ Attending Unavailable MD Julee De Los Santos Attending Unavailable MD Julee De Los Santos Admitting Unavailable MD Julee De Los Santos Attending Unavailable MD Julee De Los Santos Admitting Unavailable MD Julee De Los Santos Attending Unavailable Faith, TURBO GENERATOR OILER Silvia L Admitting Unavailable Faith, TURBO GENERATOR OILER Silvia L Attending Unavailable ANDRA OAKES Attending Unavailable Allergies Allergy Classification Reported Allergen(s) Allergy Type Date of Onset Reaction(s) Facility (15 sources) Cefuroxime; Translations: [cefuroxime] Drug Allergy 2 Hives, Unknown (qualifier value) [facility] (1 source) Cefuroxime Drug Allergy 2 [facility] Repository Medications Current Medications Medication Drug Class(es) Dates Sig (Normalized) Sig (Original) 0.25 MG, 0.5 MG Dose 3 ML semaglutide 0.68 MG/ML Pen Injector (1 source) Start: 09-15-2023 semaglutide 2 mg/3 mL (0.25 mg or 0.5 mg dose) subcutaneous solution 0.25 mg, SubCutaneous, qWeek, increase to 0.5 mg after 4 weeks, # 4 EA, Refills(s) 6, Pharmacy: [id number], 169, cm, 09/15/23 10:48:00 EST, Height/Length [...] puff(s), Inhalation, q6hr, 8.5 gm, Refill(s) 0, [id number], 169, cm, 07/19/23 13:15:00 EST, Height/Length Dosing, 75.1, kg, 07/19/23 13:15:00 EST, Weight Dosing Start Date: 07/19/23 Status: Ordered atorvastatin 20 mg oral tablet (12 sources) HMG-CoA Reductase Inhibitor Start: 11-08-2022 take 1 tablet by mouth at bedtime atorvastatin (LIPITOR) 20 mg tablet [...] by mouth daily at bedtime. folic acid 1 mg oral tablet (16 sources) Start: 09-11-2023 take 2 mg by mouth once daily folic acid 2 mg, Oral, Daily, Refills(s) 0 Start Date: 09/11/23 Status: Ordered Start: 08-16-2023 End: 11-15-2023 take 2 tablets by mouth once daily folic acid 1 mg tablet Take 2 tablets by mouth once daily. 60 tablet 3 11/15/2023 Active Start: 02-08-2023 End: 05-10-2023 take 2 tablets [...] very morning. Handicap placard (1 source) Start: 06-26-20 Handicap placard Handicap placard, See Instructions, 1 EA, 0, Duration 5 years, Supply Start Date: 06/26/23 Status: Ordered levoFLOXacin 500 mg oral tablet (1 source) Quinolone Antimicrobial Start: 09-11-19 End: 09-21-19 take 1 tablet by mouth every twenty-four hours levofloxacin 500 mg Tab 500 mg = 1 tab(s), Oral, q24hr, X 10 day(s), # 10 tab(s), Refills(s) 0, Pharmacy: [id number], 169, cm, 09/11/23 11:22:00 EST, Height/Length Dosing, 75.9, kg, 09/11/23 11:20:00 EST, Weight Dosing Start Date: 09/11/23 Stop Date: 09/21/23 Status: Ordered metFORMIN hydrochloride 850 mg oral tablet (12 sources) Biguanide Start: 04-25-20 take 1 tablet by mouth twice daily metformin 850 mg Tab See Instructions, TAKE 1 TABLET BY MOUTH TWICE DAILY, # 180 tab(s), Refills(s) 0, Pharmacy: [id number], 170.2, cm, 04/10/23 13:28:00 EDT, Height/Length Dosing, 77.2, kg, 04/10/23 13:28:00 EDT, Weight Dosing Start Date: 04/25/23 Status: Ordered Start: 12-07-2022 take 1 tablet by romi th twice daily metformin 850 mg Tab 850 mg = 1 tab(s), Oral, BID, # 180 tab(s), Refills(s) 0, Pharmacy: [id number] Start Date: 12/07/22 Status: Ordered Start: [...] & supper methotrexate 2.5 mg oral tablet (16 sources) Folate Analog Metabolic Inhibitor Start: End: take 8 tablets by mouth every week methotrexate 2.5 mg tablet Take 8 tablets by mouth one time a week. 32 tablet 3 11/15/2023 Active Start: 01-09-2023 methotrexate 2 .5 mg Tab 20 mg = 8 tab(s), [...] every Monday predniSONE 5 mg oral tablet (12 sources) Start: 06-24-2022 End: 11-09-2022 predniSONE (DELTASONE) 5 mg tablet Take 1 tablet by mouth as needed. Take 1 tablet by mouth daily as needed 30 tablet 3 11/09/2022 Active Comment on above: Take 1 tablet by romi th as needed. Take 1 tablet by mouth [...] Comment on above: Take 1 tablet by [facility] twice daily as needed (for pain). for [...] 1.5 ml semaglutide 1.34 mg/ml pen injector (10 sources) Start: 09-29-2022 OZEMPIC 0.25 mg or 0.5 mg(2 mg/1.5 mL) pen INJECT 0.5 mg SUBCUTANEOUSLY EVERY WEEK 0 09/29/2022 Active Start: 06-24-2022 Semaglutide (O zempic) 0.25 mg or 0.5 mg(2 mg/1.5 mL) pen injector Active 0.5 MG SUBCUT every week June 24, 2022 12:00am Comment on above: INJECT 0.5 mg SUBCUT ANEOUSLY EVERY WEEK Problems Active Problems Problem Classification Problem Date Documented Da te Episodic/Chronic Abdominal pain (2 sources) Abdominal pain; [...] Onset: 11-29-2021 Chronic Disorders of lipid metabolism (11 sources) Pure hypercholesterolemia , unspecified; Translations: [Hyperlipidemia] Onset: 07-27-2010 07-27-2010 Chronic Headache; including migraine (2 sources) Migraine 12-02-2022 Chronic Mycoses (1 source) Onychomycosis of toenails; Translations: [Tinea unguium] 11-15-2023 Episodic Nausea and vomiting (2 sources) Nausea and vomiting; Translations: [Nausea with vomiting, unspecified] 11-23-2018 Episodic Nutritional deficiencies (2 sources) Vitamin D deficiency 12-02-2022 Chronic Osteoarthritis (8 sources) Arthritis; Translations: [Unspecified osteoarthritis, unspecified site] Onset: 07-27-2010 07-27-2010 Chronic Osteoporosis (2 sources) Osteoporosis 12-02-2022 Chronic Other aftercare (3 sources) Patient encounter status; Translations: [Other manager terminal (current) drug therapy] 02-08-2023 Episodic Other and unspecified benign neoplasm (2 sources) Polyp of colon; Translations: [Polyp of colon] 01-09-2023 Episodic Other bone disease and musculoskeletal deformities (1 source) Osteopenia; Translations: [Other specified disorders of bone density and structure, multiple sites] 11-15-2023 Episodic Other bone disease and musculoskeletal deformities (1 source) Other specified disorders of bone density and structure, multiple sites; Translations: [Osteopenia of multiple sites] Onset: 11-15-2023 Episodic Other connective tissue disease (2 sources) [...] Nasal congestion 07-19-2023 Episodic Other upper respiratory disease (1 source) Change in voice; Translations: [Unspecified voice and resonance disorder] 11-15-2023 Episodic Other upper respiratory infections (1 source) Sinusitis 07-11-2023 Chronic Residual codes; unclassified (1 source) Family history of malignant neoplasm of bladder; Translations: [FAM HX MALIGNANT NEOPLASM BLADDER] Onset: 09-17-2022 Episodic Residual codes; unclassified (1 source) Family history of malignant neoplasm of other organs or systems; Translations: [FAM HX MALIG NEOPLASM OTH ORGN/SYS] Onset: 09-17-2022 Episodic Retinal detachments; defects; vascular occlusion; and retinopathy (10 sources) Degenerative disorder of macula ; Translations: [Unspecified macular degeneration] Onset: 07-27-2010 07-27-2010 Chronic Rheumatoid arthritis and related disease (20 sources) Rheumatoid arthritis, unspecified; Translations: [Rheumatoid arthritis with rheumatoid factor of multiple sites without organ or systems involvement] Onset: 05-29-2018 Chronic Unclassified (1 source) History of surgical procedure on mouth 04-10-2023 Unclassified (1 source) Patient encounter status 09-15-2023 Past or Other Problems Problem Classification Problem Date Documented Date Episodic/Chronic Allergic reactions (1 source) Generalized skin eruption due to drugs and medicaments taken internally; Translations: [GEN SKN ERUPT D/T RX TAKE INTERNALY] Onset: 11-29-2021 Episodic Chronic obstructive pulmonary disease and bronchiectasis (8 sources) Bronchitis; Translations: [Bronchitis, not specified as [...] 11-06-2021 Episodic Other aftercare (2 sources) Other senior care (current) drug therapy; Translations: [OTH USP CURRENT DRUG THERAPY] Onset: 02-22-2022 Episodic Other aftercare (1 source) manager terminal (current) use of oral hypoglycemic drugs; Translations: [USP USE ORAL HYPOGLYCEMIC DX] Onset: 11-29-2021 Episodic [...] ERUPTION] Onset: 11-02-2021 Episodic Residual codes; unclassified (8 sources) Tobacco user; Translations: [Tobacco use] Onset: 07-27-2010 07-27-2010 Episodic Spondylosis; intervertebral disc disorders; other back problems (5 sources) Degenerative lumbar spinal stenosis; Translations: [Thoracic back pain] Onset: 05-10-2023 12-02-2022 Episodic Urinary tract infections (8 sources) Urinary tract infectious disease; Translations: [Urinary tract infection, site not specified] Onset: 07-27-2010 07-27-2010 Episodic Results Test Name Value Interpretation Reference Range Facil ity Ambulatory Visit Summaryon 0 12-19-2023 Ambulatory Visit Summary YAMILE ROSE :1955 Visit Date:12/19/2023 Ambulatory Visit Instructions Your Diagnosis BMI 26.0-26.9,adult Former smoker Eustachian tube disorder Type 2 diabetes mellitus Your Care Team Attending Physician - Julee De Los Santos MD Primary Care Physician - Julee De Los Santos MD This Is Your Medications List Misc Prescription (Handicap placard) Misc Prescription (Misc DME Prescription) acetaminophen (Tylenol) albuterol (Albuterol (Eqv-ProAir HFA) 90 mcg/inh inhalation aerosol) alendronate (alendronate 35 mg Tab) atorvastatin (atorvastatin 20 mg Tab) ciclopirox topical (Penlac Nail Lacquer 8% topical solution) folic acid metformin (metformin 850 mg Tab) methotrexate (methotrexate 2.5 mg Tab) predniSONE semaglutide (semaglutide 2 mg/3 mL (0.25 mg or 0.5 mg dose) subcutaneous solution) Procedures Performed Cardiac catheter, Carpal tunnel release, Cataracts, Colonoscopy, Extn - Extraction of tooth, EMERALD BSO - Total abdominal hysterectomy and bilateral salpingo-oophorectomy. Discharge Vitals Heart Rate (Peripheral) 78 Respiratory Rate 18 Blood Pressure 132/78 Height 168.0 cm Height 66 in Weight 75.2 kg Weight 165.44 lb BMI 26.64 What to do next Scheduled Follow-Up Appointments Monday 2:00 PM EDT With: Julee De Los Santos MD Where: [facility] [address] [place] [address]- \.br\ Medications\.br \ What How Much When Why Instructions\.b r\ Unchanged acetaminophen (Tylenol) 650 Milligram By Mouth Every 8 hours as needed for as needed for pain\.br\ Unchanged albuterol (Albuterol (Eqv-ProAir HFA) 90 mcg/ inh inhalation aerosol) 2 Puffs Inhalation Every 6 hours BMI 26.0-26.9,adult Over weight Nonsmoker\.br\ Unchanged alendronate (alendronate 35 mg Tab) See instructions TAKE 1 TABLET BY MOUTH EVERY 7 DAYS \.br\ Unchanged atorvastatin (atorvastatin 20 mg Tab) See instructions TAKE 1 TABLET BY MOUTH ONCE DAILY \.br\ Unchanged ciclopirox topical (Penlac Nail Lacquer 8% topical solution) 1 Application Topical Every day\.br\ Unchanged folic acid 2 Milligram By Mouth Every day\.br\ Unchanged metformin (metformin [...] mg or 0.5 mg dose) subcutaneous solution) 0.25 Milligram Subcutaneous Every week increase to 0.5 mg after 4 weeks \.br\ Allergies\.br\ cefuroxime (Unknown)\.br\ Problems\.br\ Ongoing - Any problem that you are currently receiving treatment for.\.br\ Anxiety and depression\.br\ 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 br\ Osteopenia\.br\ Polyp of colon\.br\ Rheumatoid arthritis involving multiple sites with positive rheumatoid factor\.br\ S/P tooth extraction\.br\ Sinusitis\.br\ Stye\.br\ Type 2 diabetes mellitus\.br\ Vitamin D deficiency\.br\ Wheezing\.br\ Patient Survey\.br\ You may receive a survey via text or e-mail asking about your office visit. Please share your experience with us by completing your survey. 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 Pt has appointment in January Pt doesn't think there was a difference after taking the Kenalog . Pt states has someone from insurance come out and checked her A1c and was 5.8 History of Present Illness - See staff HPI. Review of Systems PHQ Score Initial Depression Screen Score: 0 SCORE Physical Exam Vitals & Measurements HR: 78(Peripheral) RR: 18 BP: 132/78 SpO2: 97% HT: 66 in HT: 168.0 cm WT: 75.2 kg WT: 165.44 lb BMI: 26.64 General: alert, no acute distress ENMT: oral mucosa moist, Cardiovascular: regular rate and rhythm, normal peripheral perfusion Respiratory: Lungs CTA, respirations non labored Extremities: no deformity, no trauma Neurological: oriented x 4, LOC appropriate for age, CN II-XII intact, motor strength equal & normal bilaterally, speech normal Abdomen: Soft, Nontender, Non-distended, + BS Assessment/Plan 1. Eustachian tube disorder (H69.90: Unspecified Eustachian tube disorder, unspecified ear) - No longer an issue. - Will continue to monitor 2. Type 2 diabetes mellitus (E11.9: Type 2 diabetes mellitus without complications) - A1c is 5.8 - Continue to monitor - On GlP-1 3. Change in voice (R49.9: Unspecified voice and resonance disorder) - Seeing ENT for this. - Will follow up after ENT. - No issues with swallowing or breathing. 4. Former smoker (Z87.891: Personal history of nicotine dependence) - Please continue to not smoke. 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 Carpal tunnel syndrome Change in voice Controlled type 2 diabetes mellitus without complication, without long-term current use of insulin Degenerative lumbar spinal stenosis Encounter for diabetic foot exam Eustachian tube disorder Fibromyalgia Hypercholesterolemia Impingement of shoulder Loss of vision Macular degeneration of right eye Migraines Nasal congestion Onychomycosis Osteopenia Polyp of colon Rheumatoid arthritis involving multiple sites with positive rheumatoid factor S/P tooth extraction Sinusitis Stye Type 2 diabetes mellitus Vitamin D deficiency Wheezing Historical No qualifying data Procedure/Surgical History Cardiac catheter, Carpal tunnel release, Cataracts, Colonoscopy, Extn - Extraction of tooth, EMERALD BSO - Total abdominal hysterectomy and bilateral salpingo-oophorectomy. Medications Albuterol (Eqv-ProAir HFA) 90 mcg/inh inhalation aerosol, 2 puff(s), Inhalation, q6hr alendronate 35 mg Tab, See Instructions atorvastatin 20 mg Tab, See Instructions folic acid, 2 mg, Oral, Daily Handicap placard, See Instructions metformin 850 mg Tab, See Instructions methotrexate 2.5 mg Tab, 20 mg= 8 tab(s), Oral, q7day Misc DME Prescription, See Instructions Penlac Nail Lacquer 8% topical solution, 1 aleah, Topical, Daily predniSONE, 5 mg, Oral, Daily, PRN semaglutide 2 mg/3 mL (0.25 mg or 0.5 mg dose) subcutaneous solution, 0.25 mg, SubCutaneous, qWeek, 6 refills Tylenol, 650 mg, Oral, q8hr, PRN Allergies cefuroxime (Unknown) Social History Alcohol Household alcohol concerns: No., 09/15/2023 Tobacco Former smoker, quit more than 30 days ago Tobacco Use:. Never Smokeless Tobacco Use:. Cigarettes, Household tobacco concerns: No., 12/19/2023 Family History Cancer: Brother. Metastatic cancer: Father. Primary malignant neoplasm of bladder: Mother. Immunizations Vaccine Date Status Comments influenza virus vaccine, inactivated 07/04/2023 Recorded influenza virus vaccine, inactivated - Not Given Postpone due to refusal SARS-CoV-2 (COVID-19) [id number] 08/10/2022 Recorded influenza virus vaccine, inactivated 05/13/2022 [...] Recorded pneumococcal 23-valent vaccine 04/24/2015 Recorded Normal [facility] Comment on above: Result Comment: Elec tronically Signed By: Navjot KAYE, Julee Morgan.br\Date and Time Signed: 12/19/23 11:42 EDT Patient Educationon 12-19-19 24 Patient Education Endocrinology Blood Glucose Monitoring, Adult Monitoring your blood sugar (glucose) is an important part of managing your diabetes. Blood glucose monitoring involves checking your blood glucose as often as directed and keeping a log or record of your results over time. Checking your blood glucose regularly and keeping a blood glucose log can: ? Help you and your health care provider adjust your diabetes management plan as needed, including your medicines or insulin. ? Help you understand how food, exercise, illnesses, and medicines affect your blood glucose. ? Let you know what your blood glucose is at any time. You can quickly find out if you have low blood glucose (hypoglycemia) or high blood glucose (hyperglycemia). Your health care provider will set individualized treatment goals for you. Your goals will be based on your age, other medical conditions you have, and how you respond to diabetes treatment. Generally, the goal of treatment is to maintain the following blood glucose levels: ? Before meals (preprandial): 80?130 mg/dL (4.4?7.2 mmol/L). ? After meals (postprandial): below 180 mg/dL (10 mmol/L). ? A1C level: less than 7%. Supplies needed: ? Blood glucose meter. ? Test strips for your meter. Each meter has its own strips. You must use the strips that came with your meter. ? A needle to prick your finger (lancet). Do not use a lancet more than one time. ? A device that holds the lancet (lancing device). ? A journal or log book to write down your results. How to check your blood glucose Checking your blood glucose 1. Wash your hands for at least 20 seconds with soap and water. 2. Prick the side of your finger (not the tip) with the lancet. Do not use the same finger consecutively. 3. Gently rub the finger until a small drop of blood appears. 4. Follow instructions that come with your meter for inserting the test strip, applying blood to the strip, and using your blood glucose meter. 5. Write down your result and any notes in your log. Using alternative sites Some meters allow you to use areas of your body other than your finger (alternative sites) to test your blood. The most common alternative sites are the forearm, the thigh, and the palm of your hand. Alternative sites may not be as accurate as the fingers because blood flow is slower in those areas. This means that the result you get may be delayed, and it may be different from the result that you would get from your finger. Use the finger only, and do not use alternative sites, if: ? You think you have hypoglycemia. ? You sometimes do not know that your blood glucose is getting low (hypoglycemia unawareness). General tips and recommendations Blood glucose log ? Every time you check your blood glucose, write down your result. Also write down any notes about things that may be affecting your blood glucose, such as your diet and exercise for the day. This information can help you and your health care provider: ? Look for patterns in your blood glucose over time. ? Adjust your diabetes management plan as needed. ? Check if your meter allows you to download your records to a computer or if there is an aleah for the meter. Most glucose meters store a record of glucose readings in the meter. If you have type 1 diabetes: ? Check your blood glucose 4 or more times a day if you are on intensive insulin therapy with multiple daily injections (MDI) or if you are using an insulin pump. Check your blood glucose: ? Before every meal and snack. ? Before bedtime. ? Also check your blood glucose: ? If you have symptoms of hypoglycemia. ? After treating low blood glucose. ? Before doing activities that create a risk for injury, like driving or using machinery. ? Before and after exercise. ? Two hours after a meal. ? Occasionally between 2:00 a.m. and 3:00 a.m., as directed. ? You may need to check your blood glucose more often, 6?10 times per day, if: ? You have diabetes that is not well controlled. ? You are ill. ? You have a history of severe hypoglycemia. ? You have hypoglycemia unawareness. If you have type 2 diabetes: ? Check your blood glucose 2 or more times a day if you take insulin or other diabetes medicines. ? Check your blood glucose 4 or more times a day if you are on intensive insulin therapy. Occasionally, you may also need to check your glucose between 2:00 a.m. and 3:00 a.m., as directed. ? Also check your blood glucose: ? Before and after exercise. ? Before doing activities that create a risk for injury, like driving or using machinery. ? You may need to check your blood glucose more often if: ? Your medicine is being adjusted. ? Your diabetes is not well controlled. ? You are ill. General tips ? Make sure you always have your supplies with you. ? After you use a few boxes of test strips, adjust (calibrate) your blood glucose meter by following in (more content not included)... Normal [facility] Ambulatory Visit Summaryon 0 11-20-2023 Ambulatory Visit Summary YAMILE ROSE :1955 Visit Date:11/20/2023 Ambulatory Visit Instructions Your Diagnosis Controlled type 2 diabetes mellitus without complication, without long-term current use of insulin Onychomycosis Eustachian tube disorder Anxiety and depression Sinusitis Over weight Former smoker BMI 27.0-27.9,adult Your Care Team Attending Physician - Julee De Los Santos MD Primary Care Physician - Julee De Los Santos MD This Is Your Medications List ciclopirox topical (Penlac Nail Lacquer 8% topical solution) Contact prescribing physician if questions or concerns Misc Prescription (Handicap placard) Misc Prescription (Misc DME Prescription) acetaminophen (Tylenol) albuterol (Albuterol (Eqv-ProAir HFA) 90 mcg/inh inhalation aerosol) alendronate (alendronate 35 mg Tab) atorvastatin (atorvastatin 20 mg Tab) folic acid metformin (metformin 850 mg Tab) methotrexate (methotrexate 2.5 mg Tab) predniSONE semaglutide (semaglutide 2 mg/3 mL (0.25 mg or 0.5 mg dose) subcutaneous solution) Procedures Performed Cardiac catheter, Carpal tunnel release, Cataracts, Colonoscopy, Extn - Extraction of tooth, EMERALD BSO - Total abdominal hysterectomy and bilateral salpingo-oophorectomy. Discharge Vitals Temperature (Oral) 36.6 ?C Heart Rate (Peripheral) 74 Respiratory Rate 16 Blood Pressure 130/82 Height 168 cm Height 66 in Weight 75.3 kg Weight 165.66 lb BMI 26.68 What to do next Scheduled Follow-Up Appointments Monday. 2023 10:45 AM EDT With: Julee De Los Santos MD Where: [facility] [place] Normal [address] [place], [place] [address]- \.br\ Medications\.br \ What How Much When Why Instructions\.b r\ New ciclopirox topical (Penlac Nail Lacquer 8% topical solution) 1 Application Topical Every day Pickup at [facility]\.br\ Unchanged acetaminophen (Tylenol) 650 Milligram By Mouth Every 8 hours as needed for as needed for pain Contact prescribing physician if questions or concerns \.br\ Unchanged albuterol (Albuterol (Eqv-ProAir HFA) 90 mcg/ inh inhalation aerosol) 2 Puffs Inhalation Every 6 hours BMI 26.0-26.9,adult Over weight Nonsmoker Contact prescribing physician if questions or concerns \.br\ Unchanged alendronate (alendronate 35 mg Tab) See instructions TAKE 1 TABLET BY MOUTH EVERY 7 DAYS Contact prescribing physician if questions or concerns \.br\ Unchanged atorvastatin (atorvastatin 20 mg Tab) See instructions TAKE 1 TABLET BY MOUTH ONCE DAILY Contact prescribing physician if questions or concerns \.br\ Unchanged folic acid 2 Milligram By Mouth Every day Contact prescribing physician if questions or concerns \.br\ Unchanged metformin (metformin 850 mg Tab) See instructions TAKE 1 TABLET BY MOUTH TWICE DAILY Contact prescribing physician if questions or concerns \.br\ Unchanged methotrexate (methotrexate 2.5 mg Tab) 8 Tablets By Mouth Every 7 days Contact prescribing physician if questions or concerns \.br\ Unchanged Misc Prescription (Handicap placard) See instructions Duration 5 years Contact prescribing physician if questions or concerns \.br\ Unchanged Misc Prescription (Misc DME Prescription) See instructions Disp one Glucometer, #100 test strips and #100 lancets to test blood sugars once a day. Dx E11.8 Contact prescribing physician if questions or concerns \.br\ Unchanged predniSONE 5 Milligram By Mouth Every day as needed for Breakthrough Pain Contact prescribing physician if questions or concerns \.br\ Unchanged semaglutide (semaglutide 2 mg/ 3 mL (0.25 mg or 0.5 mg dose) subcutaneous solution) 0.25 Milligram Subcutaneous Every week increase to 0.5 mg after 4 weeks Contact prescribing physician if questions or concerns \.br\ Pharmacy Information\.br \ [facility]: [address] [place], [place] [id number] [phone]\.br\ Allergies\.br\ cefuroxime (Unknown)\.br\ Problems\.br\ Ongoing - Any problem that you are currently receiving treatment for.\.br\ Anxiety and depression\.br\ 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 br\ Osteopenia\.br\ Polyp of colon\.br\ Rheumatoid arthritis involving multiple sites with positive rheumatoid factor\.br\ S/P tooth extraction\.br\ Sinusitis\.br\ Stye\.br\ Type 2 diabetes mellitus\.br\ Vitamin D deficiency\.br\ Wheezing\.br\ Patient Survey\.br\ You may receive a survey via text or e-mail asking about your office visit. Please share your experience with us by completing your survey. We appreciate your feedback and thank you for choosing us for your care.\.br\ \.br\ [facility] 11-20-2023 Consent [id number]#[id number] 0TIFF Normal [facility] Family Medicine Office/Clini c Noteon 11-20-2023 Family Medicine Office/Clinic Note HPI Staff Yamile is a 68 year old female presenting for acute visit Acute: fungus on toe, right great toenail and she's been soaking it in listerine it's not getting any better and it's a bit painful under the nail questions/concerns: discuss her metformin been holding some doses if sugar is lower she ? cutting metformin dose down maybe ozempic is helping her sugars and dose is too much now. Still waiting to see ENT and hasn't heard a thing has to get this taken care of History of Present Illness - See staff HPI Review of Systems PHQ Score Initial Depression Screen Score: 0 SCORE Physical Exam Vitals & Measurements T: 36.6 ?C(Oral) HR: 74(Peripheral) RR: 16 BP: 130/82 SpO2: 95% HT: 66 in HT: 168 cm WT: 75.3 kg WT: 165.66 lb BMI: 26.68 General: alert, no acute distress ENMT: oral mucosa moist, Cardiovascular: regular rate and rhythm, normal peripheral perfusion Respiratory: Lungs CTA, respirations non labored Extremities: no deformity, no trauma Neurological: oriented x 4, LOC appropriate for age, CN II-XII intact, motor strength equal & normal bilaterally, speech normal Abdomen: Soft, Nontender, Non-distended, + BS - Yellowing of the L great toe nail Assessment/Plan 1. Controlled type 2 diabetes mellitus without complication, without long-term current use of insulin (E11.9: Type 2 diabetes mellitus without complications) - Will do a kenolog shot - Discuss medication use - Close monitoring 2. Onychomycosis (B35.1: Tinea unguium) - Penlac 3. Eustachian tube disorder (H69.90: Unspecified Eustachian tube disorder, unspecified ear) - Will send message to our referal team that no one called her. - Kenolog to help at this time. 4. Anxiety and depression (F41.9: Anxiety disorder, unspecified) - Stable. - No issues. 5. Sinusitis (J32.9: Chronic sinusitis, unspecified) - Likely allergies. - Will monitor 6. Over weight (E66.3: Overweight) - Diet and exercise advised 7. Former smoker (Z87.891: Personal history of nicotine dependence) - Please continue to not smoke 8. BMI 27.0-27.9,adult (Z68.27: Body mass index [BMI] 27.0-27.9, adult) - BMI education given. 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 Carpal tunnel syndrome Controlled type 2 diabetes mellitus without complication, without long-term current use of insulin Degenerative lumbar spinal stenosis Encounter for diabetic foot exam Eustachian tube disorder Fibromyalgia Hypercholesterolemia Impingement of shoulder Loss of vision Macular degeneration of right eye Migraines Nasal congestion Onychomycosis Osteopenia Polyp of colon Rheumatoid arthritis involving multiple sites with positive rheumatoid factor S/P tooth extraction Sinusitis Stye Type 2 diabetes mellitus Vitamin D deficiency Wheezing Historical No qualifying data Procedure/Surgical History Cardiac catheter, Carpal tunnel release, Cataracts, Colonoscopy, Extn - Extraction of tooth, EMERALD BSO - Total abdominal hysterectomy and bilateral salpingo-oophorectomy. Medications Albuterol (Eqv-ProAir HFA) 90 mcg/inh inhalation aerosol, 2 puff(s), Inhalation, q6hr, Not taking alendronate 35 mg Tab, See Instructions, Not taking: sustainability purchasing agent told her to hold off on this for awhile atorvastatin 20 mg Tab, See Instructions folic acid, 2 mg, Oral, Daily Handicap placard, See Instructions metformin 850 mg Tab, See Instructions methotrexate 2.5 mg Tab, 20 mg= 8 tab(s), Oral, q7day Misc DME Prescription, See Instructions Penlac Nail Lacquer 8% topical solution, 1 aleah, Topical, Daily predniSONE, 5 mg, Oral, Daily, PRN semaglutide 2 mg/3 mL (0.25 mg or 0.5 mg dose) subcutaneous solution, 0.25 mg, SubCutaneous, qWeek, 6 refills Tylenol, 650 mg, Oral, q8hr, PRN Allergies cefuroxime (Unknown) Social History Alcohol Household alcohol concerns: No., 09/15/2023 Tobacco Former smoker, quit more than 30 days ago Tobacco Use:. Never Smokeless Tobacco Use:. Cigarettes, Household tobacco concerns: No., 11/20/2023 Family History Cancer: Brother. Metastatic cancer: Father. Primary malignant neoplasm of bladder: Mother. Immunizations Vaccine Date Status Comments influenza virus vaccine, inactivated 07/04/2023 Recorded influenza virus vaccine, inactivated - Not Given Postpone due to refusal SARS-CoV-2 (COVID-19) [id number] 08/10/2022 Recorded influenza virus vaccine, inactivated 05/13/2022 Recorded SARS-CoV-2 (COVID-19) mRNA-1273 vaccine 12/15/2021 Recorded 2022-12-02: [id number] zoster vaccine, inactivated 08/13/2021 Recorded SARS-CoV-2 (COVID-19) mRNA-1273 vaccine 05/20/2021 Recorded 2022-12-02 (more content not included)... Normal [facility] Comment on above: Result Comment: Elec tronically Signed By: Navjot KAYE, Julee Morgan.br\Date and Time Signed: 11/20/23 11:22 EDT Consultation Noteon 11-17-19 Consultation Note [id number]#1.0 0TIFF [facility] 25(OH)D3 SerPl-mCncon 2023 25-hydroxyvitamin D3 [Mass/Vol] 36.8 ng/mL Normal 31.0-80.[address] [facility] Comment on above: Order Comment: Speci men Type: BLOOD SPECIMENOrdering Facility: [facility] Address: [address] [place] [address] Result Comment: Clas sification of 25 [place] Vitamin D status: Deficiency/Insufficiency: < or = 30 ng/ml. Sufficiency/Optimal Levels: 31-80 ng/mL Toxicity: > 100 ng/mL. Test performed by chemiluminescent immunoassay. Performed By: #### 1 989-3 ####[facility] LABCLIA [id number] [place] [address] [place] CBC W Auto Differential pane l (Bld)on 11-15-2023 Basophils (Bld) [#/Vol] 0.06 10*3/uL [facility] Basophils/100 WBC (Bld) 0.9 % [facility] Differential cell count method Nom (Bld) Auto [facility] Eosinophils (Bld) [#/Vol] 0.10 10*3/uL [facility] Eosinophils/100 WBC (Bld) 1.5 % [facility] Erythrocyte distribution width (RBC) [Ratio] 14.3 % 11.5 - 15.0 % [facility] Hematocrit (Bld) [Volume fraction] 46.8 % High 36.0 - 46.0 % [facility] Hemoglobin (Bld) [Mass/Vol] 15.4 g/dL 11.5 - 15.5 g/dL [facility] Immature granulocytes (Bld) [#/Vol] NINF [facility] Immature granulocytes/100 WBC (Bld) 0.2 % [facility] Interpretation and review of laboratory results Abnormal [facility] Lymphocytes (Bld) [#/Vol] 1.96 10*3/uL [facility] Lymphocytes/100 WBC (Bld) 29.5 % [facility] MCH (RBC) [Entitic mass] 31.4 pg 26.0 - 34.0 pg [facility] MCHC (RBC) [Mass/Vol] 32.9 g/dL 30.5 - 36.0 g/dL [facility] MCV (RBC) [Entitic vol] 95.3 fL 80.0 - 100.0 fL [facility] Monocytes (Bld) [#/Vol] 0.39 10*3/uL NINF [facility] Monocytes/100 WBC (Bld) 5.9 % [facility] Neutrophils (Bld) [#/Vol] 4.13 10*3/uL [facility] Neutrophils/100 WBC (Bld) 62.0 % [facility] Nucleated RBC (Bld) [#/Vol] NINF [facility] Nucleated RBC/100 WBC (Bld) [Ratio] 0.0 % /100 WBC [facility] Platelet mean volume (Bld) [Entitic vol] 10.0 fL 9.0 - 12.7 fL [facility] Platelets (Bld) [#/Vol] 221 10*3/uL [facility] RBC (Bld) [#/Vol] 4.91 10*6/uL 3.90 - 5.2 0 m/uL [facility] WBC (Bld) [#/Vol] 6.65 10*3/uL [facility] Basophils (Bld) [#/Vol] 0.06 10*3/uL Normal <0.[address] [facility] Comment on above: Order Comment: Speci men Type: BLOOD SPECIMENOrdering Facility: [facility] Address: [address] [place] [address] Performed By: #### 5 7021-8 ####[facility] LABIA [id number] [place] [address] [place] Basophils/100 WBC (Bld) 0.9 % Normal [facility] Comment on above: Order Comment: Speci men Type: BLOOD SPECIMENOrdering Facility: [facility] Address: [address] [place] [address] Performed By: #### 5 7021-8 ####[facility] LABIA [id number] [place] [address] [place] Differential cell count method Nom (Bld) Auto Normal [facility] Comment on above: Order Comment: Speci men Type: BLOOD SPECIMENOrdering Facility: [facility] Address: [address] [place] [address] Performed By: #### 5 7021-8 ####[facility] LABCLIA [id number] [place] [address] [place] Eosinophils (Bld) [#/Vol] 0.10 10*3/uL Normal <0.[address] [facility] Comment on above: Order Comment: Speci men Type: BLOOD SPECIMENOrdering Facility: [facility] Address: [address] [place] [address] Performed By: #### 5 7021-8 ####[facility] LABCLIA [id number] [place] [address] [place] Eosinophils/100 WBC (Bld) 1.5 % Normal [facility] Comment on above: Order Comment: Speci men Type: BLOOD SPECIMENOrdering Facility: [facility] Address: [address] [place] [address] Performed By: #### 5 7021-8 ####[facility] LABCLIA [id number] [place] [address] [place] Erythrocyte distribution width (RBC) [Ratio] 14.3 % Normal 11.5-15.[address] [facility] Comment on above: Order Comment: Speci men Type: BLOOD SPECIMENOrdering Facility: [facility] Address: [address] [place] [address] Performed By: #### 5 7021-8 ####[facility] LABCLIA [id number] [place] [address] [place] Hematocrit (Bld) [Volume fraction] 46.8 % High 36.0-46.[address] [facility] Comment on above: Order Comment: Speci men Type: BLOOD SPECIMENOrdering Facility: [facility] Address: [address] [place] [address] Performed By: #### 5 7021-8 ####[facility] LABCLIA [id number] [place] [address] [place] Hemoglobin (Bld) [Mass/Vol] 15.4 g/dL Normal 11.5-15.[address] [facility] Comment on above: Order Comment: Speci men Type: BLOOD SPECIMENOrdering Facility: [facility] Address: [address] [place] [address] Performed By: #### 5 7021-8 ####[facility] LABCLIA [id number] [place] [address] [place] Immature granulocytes (Bld) [#/Vol] 10*3/uL Normal <0.[address] [facility] Comment on above: Order Comment: Speci men Type: BLOOD SPECIMENOrdering Facility: [facility] Address: [address] [place] [address] Performed By: #### 5 7021-8 ####[facility] LABCLIA [id number] [place] [address] [place] Immature granulocytes/100 WBC (Bld) 0.2 % Normal [facility] Comment on above: Order Comment: Speci men Type: BLOOD SPECIMENOrdering Facility: [facility] Address: [address] [place] [address] Performed By: #### 5 7021-8 ####[facility] LABCLIA [id number] [place] [address] [place] Lymphocytes (Bld) [#/Vol] 1.96 10*3/uL Normal 1.00-4.[address] [facility] Comment on above: Order Comment: Speci men Type: BLOOD SPECIMENOrdering Facility: [facility] Address: [address] [place] [address] Performed By: #### 5 7021-8 ####[facility] LABCLIA [id number] [place] [address] [place] Lymphocytes/100 WBC (Bld) 29.5 % Normal [facility] Comment on above: Order Comment: Speci men Type: BLOOD SPECIMENOrdering Facility: [facility] Address: [address] [place] [address] Performed By: #### 5 7021-8 ####[facility] LABIA [id number] [place] [address] [place] MCH (RBC) [Entitic mass] 31.4 pg Normal 26.0-34.[address] [facility] Comment on above: Order Comment: Speci men Type: BLOOD SPECIMENOrdering Facility: [facility] Address: [address] [place] [address] Performed By: #### 5 7021-8 ####[facility] [id number] [place] [address] [place] MCHC (RBC) [Mass/Vol] 32.9 g/dL Normal 30.5-36.0 [facility] Comment on above: Order Comment: Speci men Type: BLOOD SPECIMENOrdering Facility: [facility] Address: [address] [place] [address] Performed By: #### 5 7021-8 ####[facility] [id number] [place] [address] [place] MCV (RBC) [Entitic vol] 95.3 fL Normal 80.0-100.[address] [facility] Comment on above: Order Comment: Speci men Type: BLOOD SPECIMENOrdering Facility: [facility] Address: [address] [place] [address] Performed By: #### 5 7021-8 ####[facility] [id number] [place] [address] [place] Monocytes (Bld) [#/Vol] 0.39 10*3/uL Normal <0.[address] [facility] Comment on above: Order Comment: Speci men Type: BLOOD SPECIMENOrdering Facility: [facility] Address: [address] [place] [address] Performed By: #### 5 7021-8 ####[facility] [id number] [place] [address] [place] Monocytes/100 WBC (Bld) 5.9 % Normal [facility] Comment on above: Order Comment: Speci men Type: BLOOD SPECIMENOrdering Facility: [facility] Address: [address] [place] [address] Performed By: #### 5 7021-8 ####[facility] LABCLIA [id number] [place] [address] [place] Neutrophils (Bld) [#/Vol] 4.13 10*3/uL Normal 1.45-7.[address] [facility] Comment on above: Order Comment: Speci men Type: BLOOD SPECIMENOrdering Facility: [facility] Address: [address] [place] [address] Performed By: #### 5 7021-8 ####[facility] LABCLIA [id number] [place] [address] [place] Neutrophils/100 WBC (Bld) 62.0 % Normal [facility] Comment on above: Order Comment: Speci men Type: BLOOD SPECIMENOrdering Facility: [facility] Address: [address] [place] [address] Performed By: #### 5 7021-8 ####[facility] LABCLIA [id number] [place] [address] [place] Nucleated RBC (Bld) [#/Vol] 10*3/uL Normal <0.[address] [facility] Comment on above: Order Comment: Speci men Type: BLOOD SPECIMENOrdering Facility: [facility] Address: [address] [place] [address] Performed By: #### 5 7021-8 ####[facility] LABCLIA [id number] [place] [address] [place] Nucleated RBC/100 WBC (Bld) [Ratio] 0.0 /[address] [facility] Comment on above: Order Comment: Speci men Type: BLOOD SPECIMENOrdering Facility: [facility] Address: [address] [place] [address] Performed By: #### 5 7021-8 ####[facility] LABCLIA [id number] [place] [address] [place] Platelet mean volume (Bld) [Entitic vol] 10.0 fL Normal 9.0-12.[address] [facility] Comment on above: Order Comment: Speci men Type: BLOOD SPECIMENOrdering Facility: [facility] Address: [address] [place] [address] Performed By: #### 5 7021-8 ####[facility] LABCLIA [id number] [place] [address] [place] Platelets (Bld) [#/Vol] 221 10*3/uL Normal 150-[address] [facility] Comment on above: Order Comment: Speci men Type: BLOOD SPECIMENOrdering Facility: [facility] Address: [address] [place] [address] Performed By: #### 5 7021-8 ####[facility] LABCLIA [id number] [place] [address] [place] RBC (Bld) [#/Vol] 4.91 10*6/uL Normal 3.90-5.20 [facility] Comment on above: Order Comment: Speci men Type: BLOOD SPECIMENOrdering Facility: [facility] Address: [address] [place] [address] Performed By: #### 5 7021-8 ####[facility] LABCLIA [id number] [place] [id number] [place] WBC (Bld) [#/Vol] 6.65 10*3/uL Normal 3.70-11.00 [facility] Comment on above: Order Comment: Speci men Type: BLOOD SPECIMENOrdering Facility: [facility] Address: [address] [place] [address] Performed By: #### 5 7021-8 ####[facility] [id number] [address] [address] [place] CNOVon 11-15-2023 CNOV Office Visit (ERWIN ) YAMILE ROSE ([id number]) 1955 F Date Time Provider Department 11/15/23 12:30 PM HARISH MARSHALL During your visit today, we recorded the following information about you: Pulse Blood pressure Weight 76/minute 123/66 75.8 kg Harish Marshall MD 11/15/2023 3:07 PM Signed [facility] Out[facility] Date of Service: 11/15/2023 Patient: Yamile Rose Medical Record: [id number] Primary Care Physician: Aleksander Jimenez MD Referring Provider: SELF Last Rheumatology visit: 08/16/2023 (with Harish Marshall) Chief complaint: Pain (intermittent shooting pain to right thumb X 2 months/lower back pain radiates down right leg-getting worse-10/10 intermittently/pain to middle eguv-drnjr-pnmfjxagyuw t 10/10) History of Present Illness Yamile Rose is a 68 year old White female with medical history of rheumatoid arthritis, hyperlipidemia, diabetes mellitus, history of tobacco use, Histoplasmosis right eye in ( treated), macular degeneration ( blind right eye central vision), presents on 11/15/2023 for an in-person visit for evaluation of Pain (intermittent shooting pain to right thumb X 2 months/lower back pain radiates down right leg-getting worse-10/10 intermittently/pain to middle pccv-kznyv-uwczzivgwyb t 10/10). She is currently taking methotrexate sodium, prednisone. Yamile is both RF - 49 (11/09/2022) and CCP - 275 (11/09/2022) positive. HISTORY OF PRESENT ILLNESS History of rheumatoid arthritis She was being followed by local rheumatology in [place], but her daughter wanted her to get a 2nd opinion at [facility]. Seen by Dr. Livingston in 05/2018 Her local rheum added methotrexate which she started after her visit here in 05/2018 She was following with sustainability purchasing agent at [place] however her insurance was no more covering the sustainability purchasing agent in [place] so she came back to [facility]. Patient reports pain over MCPs, PIPs, wrists, [...] Continue folic acid to 2 mg daily 07/2023- No synovitis, Continue methotrexate 20 mg weekly Continue folic [...] lower lumbar spine. INTERVAL HISTORY Today She was seen for follow-up with her daughter She reports doing much better from rheumatoid arthritis standpoint, no joint swelling Pain over right thumb sometimes while doing sometimes She continues to have back pain, sometimes gets shooting pain radiating to her legs. She has been having sinus issues recently with change in voice, nasal drainage, has not been able to see ENT She had DEXA in 09/2023 that showed osteopenia. She reports right fifth toe fracture after bumping hard in the kitchen, denies any other fracture. PCP had prescribed Fosamax, has not started yet. Patient-Entered Data PAIN EVALUATION 11/15/2023 1218 Pain Level: 10 Pain Location: -- right thumb Description: Shooting Duration Units: Months Frequency: Intermittent Intervention/Comfort m (more content not included)... Normal [facility] Comprehensive metabolic 2000 panelon 11-15-2023 Albumin [Mass/Vol] 4.2 g/dL Normal 3.9-4.9 [facility] Comment on above: Order Comment: Speci men Type: BLOOD SPECIMENOrdering Facility: [facility] Address: [address] [place] [address] Performed By: #### 2 777-1, 936-3, 54861-6 ####[facility] [id number] [place] [address] [place] ALP [Catalytic activity/Vol] 73 U/L Normal 34-[address] [facility] Comment on above: Order Comment: Speci men Type: BLOOD SPECIMENOrdering Facility: [facility] Address: [address] [place] [address] Performed By: #### 2 777-1, 0986-3, 93435-6 ####[facility] LABIA [id number] [place] [address] [place] ALT [Catalytic activity/Vol] 34 U/L Normal 7-[address] [facility] Comment on above: Order Comment: Speci men Type: BLOOD SPECIMENOrdering Facility: [facility] Address: [address] [place] [address] Performed By: #### 2 777-1, 6-3, 90320-0 ####[facility] LABCLIA [id number] [place] [address] [place] Anion gap [Moles/Vol] 9 mmol/L Normal 9-18 [facility] Comment on above: Order Comment: Speci men Type: BLOOD SPECIMENOrdering Facility: [facility] Address: [address] [place] [address] Performed By: #### 2 777-1, 3015-3, 88475-0 ####[facility] LABCLIA [id number] [place] [address] [place] AST [Catalytic activity/Vol] 30 U/L Normal 13-[address] [facility] Comment on above: Order Comment: Speci men Type: BLOOD SPECIMENOrdering Facility: [facility] Address: [address] [place] [address] Performed By: #### 2 777-1, 3015-3, 25568-4 ####[facility] LABCLIA [id number] [place] [address] [place] Bilirubin [Mass/Vol] 0.4 mg/dL Normal 0.2-1.3 [facility] Comment on above: Order Comment: Speci men Type: BLOOD SPECIMENOrdering Facility: [facility] Address: [address] [place] [address] Performed By: #### 2 777-1, 3015-3, 87197-0 ####[facility] LABIA [id number] [place] [id number] [place] Calcium [Mass/Vol] 9.8 mg/dL Normal 8.5-10.2 [facility] Comment on above: Order Comment: Speci men Type: BLOOD SPECIMENOrdering Facility: [facility] Address: [address] [place] [address] Performed By: #### 2 777-1, 3015-3, ####[facility] LABCLIA [id number] [address] [address] [place] Chloride [Moles/Vol] 103 mmol/L Normal 97-105 [facility] Comment on above: Order Comment: Speci men Type: BLOOD SPECIMENOrdering Facility: [facility] Address: [address] [place] [address] Performed By: #### 2 777-1, 3015-3, ####[facility] LABIA [id number] [place] [address] [place] CO2 [Moles/Vol] 28 mmol/L Normal 22-[address] [facility] Comment on above: Order Comment: Speci men Type: BLOOD SPECIMENOrdering Facility: [facility] Address: [address] [place] [address] Performed By: #### 2 777-1, 3015-3, ####[facility] LABIA [id number] [place] [id number] [place] Creatinine [Mass/Vol] 0.79 mg/dL Normal 0.58-0.96 [facility] Comment on above: Order Comment: Speci men Type: BLOOD SPECIMENOrdering Facility: [facility] Address: [address] [place] [address] Performed By: #### 2 777-1, 3015-3, ####[facility] LABIA [id number] [address] [address] [place] Creatinine and Glomerular filtration rate.predicted panel (S/P/Bld) 83 mL/min/1.73m??? Normal >=[address] [facility] Comment on above: Order Comment: Speci men Type: BLOOD SPECIMENOrdering Facility: [facility] Address: [address] [place] [address] Result Comment: Rimma mated Glomerular Filtration Rate [...] reflect actual GFR. Performed By: #### 2 777-1, 6-3, ####[facility] LABCLIA [id number] [place] [id number] [place] Glucose [Mass/Vol] 109 mg/dL High 74-99 [facility] Comment on above: Order Comment: Mona gutierrez Type: BLOOD SPECIMENOrdering Facility: [facility] Address: [address] [place] [address] Result Comment: The [place] [employer] (ADA) provides guidance for cutoff [...] Standards of Medical Care in Diabetes 2016, [place] [employer]. Diabetes Care. 2016.39(Suppl 1). Performed By: #### 2 777-1, 3015-, ####[facility] LABIA [id number] [address] [address] [place] Potassium [Moles/Vol] 4.7 mmol/L Normal 3.7-5.1 [facility] Comment on above: Order Comment: Mona gutierrez Type: BLOOD SPECIMENOrdering Facility: [facility] Address: [address] [place] [address] Performed By: #### 2 777-1, 3015-3, 67588-4 ####[facility] LABCLIA [id number] [place] [id number] [place] Protein [Mass/Vol] 6.6 g/dL Normal 6.3-8.0 [facility] Comment on above: Order Comment: Speci men Type: BLOOD SPECIMENOrdering Facility: [facility] Address: [address] [place] [address] Performed By: #### 2 777-1, 3016-3, 98139-3 ####[facility] LABIA [id number] [place] [id number] [place] Sodium [Moles/Vol] 140 mmol/L Normal 136-144 [facility] Comment on above: Order Comment: Speci men Type: BLOOD SPECIMENOrdering Facility: [facility] Address: [address] [place] [address] Performed By: #### 2 777-1, 6-3, 77812-4 ####[facility] [id number] [place] [address] [place] Urea nitrogen [Mass/Vol] 12 mg/dL Normal 7-[address] [facility] Comment on above: Order Comment: Speci men Type: BLOOD SPECIMENOrdering Facility: [facility] Address: [address] [place] [address] Performed By: #### 2 777-1, 3016-3, 98812-2 ####[facility] LABIA [id number] [place] [id number] [place] PROTEIN ELECTROPHORESIS SERU M (P)on 11-15-2023 Albumin [Mass/Vol] 4.11 g/dL Normal 3.43-5.41 [facility] Comment on above: Order Comment: Speci men Type: BLOOD SPECIMENOrdering Facility: [facility] Address: [address] [place] [address] Performed By: #### L [id number] ####[facility] LABIA [id number] [place] [address] [place] Alpha 1 globulin Elph [Mass/Vol] 0.31 g/dL Normal 0.18-0.[address] [facility] Comment on above: Order Comment: Speci men Type: BLOOD SPECIMENOrdering Facility: [facility] Address: [address] [place] [address] Performed By: #### L [id number] ####[facility] LABCLIA [id number] [place] [address] [place] Alpha 2 globulin Elph [Mass/Vol] 0.59 g/dL Normal 0.42-0.[address] [facility] Comment on above: Order Comment: Speci men Type: BLOOD SPECIMENOrdering Facility: [facility] Address: [address] [place] [address] Performed By: #### L [id number] ####[facility] LABCLIA [id number] [place] [address] [place] Beta globulin Elph [Mass/Vol] 0.74 g/dL Normal 0.61-1.[address] [facility] Comment on above: Order Comment: Speci men Type: BLOOD SPECIMENOrdering Facility: [facility] Address: [address] [place] [address] Performed By: #### L [id number] ####[facility] LABCLIA [id number] [place] [address] [place] Gamma globulin Elph [Mass/Vol] 0.54 g/dL Normal 0.53-1.[address] [facility] Comment on above: Order Comment: Speci men Type: BLOOD SPECIMENOrdering Facility: [facility] Address: [address] [place] [address] Performed By: #### L [id number] ####[facility] LABCLIA [id number] [place] [address] [place] M-PROTEIN LOCATION Normal [facility] Comment on above: Order Comment: Speci men Type: BLOOD SPECIMENOrdering Facility: [facility] Address: [address] [place] [address] Result Comment: Not Applicable. Performed By: #### L [id number] ####[facility] [id number] [place] [address] [place] Protein Fractions [Interp] No definitive M protein is identified on protein electrophoresis. Normal No definitive M protein is identified on protein electrophoresis . [facility] Comment on above: Order Comment: Speci men Type: BLOOD SPECIMENOrdering Facility: [facility] Address: [address] [place] [address] Performed By: #### L [id number] ####[facility] [id number] [place] [address] [place] Protein.monoclonal Elph [Mass/Vol] 0.00 g/dL Normal <=0.[address] [facility] Comment on above: Order Comment: Speci men Type: BLOOD SPECIMENOrdering Facility: [facility] Address: [address] [place] [address] Performed By: #### L [id number] ####[facility] [id number] [place] [address] [place] SPE STAFF REVIEW Reviewed by Ellie Mock MD Normal [facility] Comment on above: Order Comment: Speci men Type: BLOOD SPECIMENOrdering Facility: [facility] Address: [address] [place] [address] Performed By: #### L [id number] ####[facility] [id number] [place] [address] [place] [facility] Parathyrin.intact [Mass/Vol] 58 pg/mL Normal 15-[address] [facility] Comment on above: Order Comment: Speci men Type: BLOOD SPECIMENOrdering Facility: [facility] Address: [address] [place] [address] Performed By: #### 2 731-8, 2885-2 ####[facility] LABCLIA [id number] [place] [id number] [place] Phosphate SerPl-mCncon 11-14 Phosphate [Mass/Vol] 3.4 mg/dL Normal 2.7-4.8 [facility] Comment on above: Order Comment: Speci men Type: BLOOD SPECIMENOrdering Facility: [facility] Address: [address] [place] [address] Performed By: #### 2 777-1, 3016-3, 57465-9 ####[facility] LABCLIA [id number] [place] [address] [place] Prot SerPl-mCncon 11-15-2023 Protein [Mass/Vol] 6.3 g/dL Normal 6.3-8.0 [facility] Comment on above: Order Comment: Speci men Type: BLOOD SPECIMENOrdering Facility: [facility] Address: [address] [place] [address] Performed By: #### 2 731-8, 2885-2 ####[facility] LABCLIA [id number] [place] [address] [place] TSH SerPl-aCncon 11-15-2023 TSH Qn 0.594 m[IU]/L Normal 0.270-4.[address] [facility] Comment on above: Order Comment: Speci men Type: BLOOD SPECIMENOrdering Facility: [facility] Address: [address] [place] [address] Performed By: #### 2 777-1, 3016-3, 25648-9 ####[facility] LABIA [id number] [place] [id number] [place] Physician Referralon 024 Physician Referral [id number] 05 [id number]#1. 00TIFF Normal [facility] Ambulatory Visit Summaryon 0 11-01-2023 Ambulatory Visit Summary YAMILE ROSE :1955 Visit Date:11/01/2023 Ambulatory Visit Instructions Your Diagnosis Nasal congestion Osteopenia Hypercholesterolemia Type 2 diabetes mellitus Rheumatoid arthritis involving multiple sites with positive rheumatoid factor BMI 27.0-27.9,adult Over weight Former smoker Your Care Team Attending Physician - Julee De Los Santos MD Primary Care Physician - Julee De Los Santos MD This Is Your Medications List atorvastatin (atorvastatin 20 mg Tab) Contact prescribing physician if questions or concerns Misc Prescription (Handicap placard) Misc Prescription (Misc DME Prescription) acetaminophen (Tylenol) albuterol (Albuterol (Eqv-ProAir HFA) 90 mcg/inh inhalation aerosol) alendronate (alendronate 35 mg Tab) folic acid metformin (metformin 850 mg Tab) methotrexate (methotrexate 2.5 mg Tab) predniSONE semaglutide (semaglutide 2 mg/3 mL (0.25 mg or 0.5 mg dose) subcutaneous solution) Procedures Performed Cardiac catheter, Carpal tunnel release, Cataracts, Colonoscopy, Extn - Extraction of tooth, EMERALD BSO - Total abdominal hysterectomy and bilateral salpingo-oophorectomy. Discharge Vitals Temperature (Oral) 36.6 ?C Heart Rate (Peripheral) 88 Respiratory Rate 16 Blood Pressure 124/80 Height 168 cm Height 66 in Weight 76.65 kg Weight 168.63 lb BMI 27.16 What to do next Scheduled Follow-Up Appointments Monday. 2023 3:30 PM EDT With: Julee De Los Santos MD Where: [facility] [place] Invalid Interpretation Code Osteopenia [facility] Medicine Office/Clini c Noteon 11-01-2023 Family Medicine Office/Clinic Note HPI Staff Yamile is a 68 year old female presenting for 2 week follow up nasal congestion DYLAN recommended Benadryl at night for sleep and follow up with ENT Didn't get a call for ENT and she called insurance and found Dr Leary and would like referred to him. questions/concerns: needs atorvastatin refilled Still has runny nose and allergies bothering her Didn't start the alendronate didn't realize it was only one a week and only got 4 pills so didn't start it History of Present Illness - Here for follow up. - Needs refills - Have not seen ENT and referral was sent. - Wants to discuss meds. Review of Systems PHQ Score Initial Depression Screen Score: 0 SCORE Physical Exam Vitals & Measurements T: 36.6 ?C(Oral) HR: 88(Peripheral) RR: 16 BP: 124/80 SpO2: 96% HT: 66 in HT: 168 cm WT: 76.65 kg WT: 168.63 lb BMI: 27.16 General: alert, no acute distress ENMT: oral mucosa moist, Cardiovascular: regular rate and rhythm, normal peripheral perfusion Respiratory: Lungs CTA, respirations non labored Extremities: no deformity, no trauma Neurological: oriented x 4, LOC appropriate for age, CN II-XII intact, motor strength equal & normal bilaterally, speech normal Abdomen: Soft, Nontender, Non-distended, + BS Assessment/Plan 1. Nasal congestion (R09.81: Nasal congestion) - ENT was faxed the referral. - Will see if we can print referral off for the patient. - Tried steroids and other OTC meds - Wants Allergy testing Ordered: alendronate, 35 mg = 1 tab(s), Oral, q7day, # 4 tab(s), Refills(s) 0, Pharmacy: [facility], 168, cm, 10/09/23 15:44:00 EDT, Height/Length Dosing, 76.4, kg, 10/09/23 15:44:00 EDT, Weight Dosing Body Mass Index (BMI) documented 3008F Current tobacco non-user 1036F Depression Screening Negative 3352F [facility] External Ambulatory Referral Influenza immunization administered or previously received 4274F Most recent diastolic blood pressure 80-89 mm Hg 3079F Patient screen for fall risk: no falls in last year or 1 fall with no injury in last year 1101F Systolic BP <130 mm Hg (Most Recent) 3074F 2. Osteopenia (M85.80: Other specified disorders of bone density and structure, unspecified site) - Pt will try the Bisphosphenate - Pros and Cons discussed. Ordered: alendronate, 35 mg = 1 tab(s), Oral, q7day, # 4 tab(s), Refills(s) 0, Pharmacy: [facility], 168, cm, 10/09/23 15:44:00 EDT, Height/Length Dosing, 76.4, kg, 10/09/23 15:44:00 EDT, Weight Dosing Body Mass Index (BMI) documented 3008F Current tobacco non-user 1036F Depression Screening Negative 3352F [facility] External Ambulatory Referral Influenza immunization administered or previously received 4274F Most recent diastolic blood pressure 80-89 mm Hg 3079F Patient screen for fall risk: no falls in last year or 1 fall with no injury in last year 1101F Systolic BP <130 mm Hg (Most Recent) 3074F 3. Hypercholesterolemia (E78.00: Pure hypercholesterolemia, unspecified) - Continue on Cholesterol meds Ordered: [facility] External Ambulatory Referral 4. Type 2 diabetes mellitus (E11.9: Type 2 diabetes mellitus without complications) - Well controlled Ordered: alendronate, 35 mg = 1 tab(s), Oral, q7day, # 4 tab(s), Refills(s) 0, Pharmacy: [facility], 168, cm, 10/09/23 15:44:00 EDT, Height/Length Dosing, 76.4, kg, 10/09/23 15:44:00 EDT, Weight Dosing [facility] External Ambulatory Referral 5. Rheumatoid arthritis involving multiple sites with positive rheumatoid factor (M05.79: Rheumatoid arthritis with rheumatoid factor of multiple sites without organ or systems involvement) - Continue on meds as before. Ordered: [facility] External Ambulatory Referral 6. BMI 27.0-27.9,adult (Z68.27: Body mass index [BMI] 27.0-27.9, adult) - BMI education given Ordered: alendronate, 35 mg = 1 tab(s), Oral, q7day, # 4 tab(s), Refills(s) 0, Pharmacy: [facility], 168, cm, 10/09/23 15:44:00 EDT, Height/Length Dosing, 76.4, kg, 10/09/23 15:44:00 EDT, Weight Dosing Body Mass Index (BMI) documented 3008F Current tobacco non-user 1036F Depression Screening Negative 3352F Influenza immunization administered or previously received 4274F Most recent diastolic blood pressure 80-89 mm Hg 3079F Patient screen for fall risk: no falls in last year or 1 fall with no injury in last year 1101F Systolic BP <130 mm Hg (Most Recent) 3074F 7. Over weight (E66.3: Overweight) - Diet and exercise advised Ordered: alendronate, 35 mg = 1 tab(s), Oral, q7day, # 4 tab(s), Refills(s) 0, Pharmacy: [facility], 168, cm, 10/09/23 15:44:00 EDT, Height/Length Dosing, 76.4, kg, 10/09/23 15:44:00 EDT, Weight Dosing Body Mass Index (BMI) documented 3008F Current tobacco non-user 1036F Depression Screening Negative 3352F Influenza immunization administered or previously received 4274F Most recent diastolic blood pressure 80-89 mm Hg 3079F Patient screen for fall risk: no falls in (more content not included)... [facility] Comment on above: Result Comment: Elec tronically Signed By: Julee De Los Santos MD\.br\Date and Time Signed: 11/01/23 11:11 EDT Physician Referralon 024 Physician Referral [id number] 01 [id number]#1. 00TIFF [facility] Ambulatory Visit Summaryon 0 10-09-2023 Ambulatory Visit Summary YAMILE ROSE Amber :1955 Visit Date:10/09/2023 Ambulatory Visit Instructions Your Diagnosis Type 2 diabetes mellitus Nasal congestion Eustachian tube disorder Osteopenia BMI 27.0-27.9,adult Over weight Former smoker Depression, unspecified Your Care Team Attending Physician - Julee De Los Santos MD Primary Care Physician - Julee De Los Santos MD This Is Your Medications List Misc Prescription (Handicap placard) Misc Prescription (Misc DME Prescription) acetaminophen (Tylenol) albuterol (Albuterol (Eqv-ProAir HFA) 90 mcg/inh inhalation aerosol) alendronate (alendronate 35 mg Tab) atorvastatin (atorvastatin 20 mg Tab) folic acid metformin (metformin 850 mg Tab) methotrexate (methotrexate 2.5 mg Tab) predniSONE semaglutide (semaglutide 2 mg/3 mL (0.25 mg or 0.5 mg dose) subcutaneous solution) Procedures Performed Cardiac catheter, Carpal tunnel release, Cataracts, Colonoscopy, Extn - Extraction of tooth, EMERALD BSO - Total abdominal hysterectomy and bilateral salpingo-oophorectomy. Discharge Vitals Temperature (Temporal Artery) 36.9 ?C Heart Rate (Peripheral) 78 Respiratory Rate 16 Blood Pressure 118/76 Height 168 cm Height 66 in Weight 76.4 kg Weight 168.08 lb BMI 27.07 Medications What How Much When Why Instructions New alendronate (alendronate 35 mg Tab) 1 Tablets By Mouth Every 7 days Type 2 diabetes mellitus Anxiety and depression Nasal congestion Eustachian tube disorder Osteopenia BMI 27.0-27.9,adult Over weight Former smoker Pickup at [facility] Unchanged acetaminophen (Tylenol) 650 Milligram By Mouth Every 8 hours as needed for as needed for pain Unchanged albuterol (Albuterol (Eqv-ProAir HFA) 90 mcg/ inh inhalation aerosol) 2 Puffs Inhalation Every 6 hours BMI 26.0-26.9,adult Over weight Nonsmoker Unchanged atorvastatin (atorvastatin 20 mg Tab) See instructions TAKE 1 TABLET BY MOUTH ONCE DAILY Unchanged folic acid 2 Milligram By Mouth Every day Unchanged metformin (metformin 850 mg Tab) See instructions TAKE 1 TABLET BY MOUTH TWICE DAILY Unchanged methotrexate (methotrexate 2.5 mg Tab) 8 Tablets By Mouth Every 7 days Unchanged Misc Prescription (Handicap placard) See instructions Duration 5 years Unchanged Misc Prescription (Misc DME Prescription) See instructions Disp one Glucometer, #100 test strips and #100 lancets to test blood sugars once a day. Dx E11.8 Unchanged predniSONE 5 Milligram By Mouth Every day as needed for Breakthrough Pain Unchanged semaglutide (semaglutide 2 mg/ 3 mL (0.25 mg or 0.5 mg dose) subcutaneous solution) 0.25 Milligram Subcutaneous Every week increase to 0.5 mg after 4 weeks Pharmacy Information [facility]: [address] [place], [place] [id number] [phone] Allergies cefuroxime (Unknown) Problems Ongoing - Any problem that you are currently receiving treatment for. Anxiety and depression Blindness of right eye with normal vision in contralateral eye Carpal tunnel syndrome Controlled type 2 diabetes mellitus without complication, without long-term current use of insulin Cough Degenerative lumbar spinal stenosis Encounter for diabetic foot exam Eustachian tube disorder Fibromyalgia Hypercholesterolemia Impingement of shoulder Loss of vision Macular degeneration of right eye Migraines Nasal congestion Osteopenia Polyp of colon Rheumatoid arthritis involving multiple sites with positive rheumatoid factor S/P tooth extraction Sinusitis Type 2 diabetes mellitus Vitamin D deficiency Wheezing Patient Survey You may receive a survey via text or e-mail asking about your office visit. Please share your experience with us by completing your survey. We appreciate your feedback and thank you for choosing us for your care. Normal [facility] Family Medicine Office/Clini c Noteon 10-09-2023 Family Medicine Office/Clinic Note HPI Staff Yamile is a 68 year old female presenting for one month follow up DM Says she's still sick from Jun. feels like her head is plugged up and she's dizzy and tired she feels something is really wrong. Do you have any of the following symptoms? Foot Exam: UTD Eye Exam: UTD Aug 2023 and glasses rx changed very little, also sees retina dr getting shots back to every 7 weeks eye still bleeding. Last A1C: Hgb A1C %: 6.1 % High (07/10/23 13:17:00) Statin: atorvastatin 20mg questions/concerns: stye left eye which is her good eye and then per above still sick from Jun. History of Present Illness - Here for follow up. - Nasal congestion for months - Tried multiple abx. - Still congested - Pt wants results from Mammo and dexa. Review of Systems PHQ Score Initial Depression Screen Score: 2 SCORE Physical Exam Vitals & Measurements T: 36.9 ?C(Temporal Artery) HR: 78(Peripheral) RR: 16 BP: 118/76 SpO2: 98% HT: 66 in HT: 168 cm WT: 76.4 kg WT: 168.08 lb BMI: 27.07 General: alert, no acute distress ENMT: oral mucosa moist, Tms WNL. Stye noted in her L eye. Cardiovascular: regular rate and rhythm, normal peripheral perfusion Respiratory: Lungs CTA, respirations non labored Extremities: no deformity, no trauma Neurological: oriented x 4, LOC appropriate for age, CN II-XII intact, motor strength equal & normal bilaterally, speech normal Abdomen: Soft, Nontender, Non-distended, + BS Assessment/Plan 1. Type 2 diabetes mellitus (E11.9: Type 2 diabetes mellitus without complications) - At goal. - Follow up in 3 months Ordered: rodrigoronate, 35 mg = 1 tab(s), Oral, q7day, # 4 tab(s), Refills(s) 0, Pharmacy: [facility], 168, cm, 10/09/23 15:44:00 EDT, Height/Length Dosing, 76.4, kg, 10/09/23 15:44:00 EDT, Weight Dosing 2. Nasal congestion (R09.81: Nasal congestion) - This seems to be chronic. - Been on multiple Abx - Still having symptoms - Recommend Benadryl at night for this and sleeping. - Follow up with ENT Ordered: alendronate, 35 mg = 1 tab(s), Oral, q7day, # 4 tab(s), Refills(s) 0, Pharmacy: [facility], 168, cm, 10/09/23 15:44:00 EDT, Height/Length Dosing, 76.4, kg, 10/09/23 15:44:00 EDT, Weight Dosing 3. Eustachian tube disorder (H69.90: Unspecified Eustachian tube disorder, unspecified ear) - As above Ordered: alendronate, 35 mg = 1 tab(s), Oral, q7day, # 4 tab(s), Refills(s) 0, Pharmacy: [facility], 168, cm, 10/09/23 15:44:00 EDT, Height/Length Dosing, 76.4, kg, 10/09/23 15:44:00 EDT, Weight Dosing 4. Osteopenia (M85.80: Other specified disorders of bone density and structure, unspecified site) - Discussed bisphosphonates - Pt will take. Ordered: alendronate, 35 mg = 1 tab(s), Oral, q7day, # 4 tab(s), Refills(s) 0, Pharmacy: [facility], 168, cm, 10/09/23 15:44:00 EDT, Height/Length Dosing, 76.4, kg, 10/09/23 15:44:00 EDT, Weight Dosing 5. Stye (H00.019: Hordeolum externum unspecified eye, unspecified eyelid) - Resolving 6. BMI 27.0-27.9,adult (Z68.27: Body mass index [BMI] 27.0-27.9, adult) - BMI education given Ordered: alendronate, 35 mg = 1 tab(s), Oral, q7day, # 4 tab(s), Refills(s) 0, Pharmacy: [facility], 168, cm, 10/09/23 15:44:00 EDT, Height/Length Dosing, 76.4, kg, 10/09/23 15:44:00 EDT, Weight Dosing Body Mass Index (BMI) documented 3008F Current tobacco non-user 1036F Depression Screening Negative 3352F Influenza immunization administered or previously received 4274F Most recent diastolic blood pressure <80 mm Hg 3078F Patient screen for fall risk: no falls in last year or 1 fall with no injury in last year 1101F Systolic BP <130 mm Hg (Most Recent) 3074F 7. Over weight (E66.3: Overweight) - Diet and exercise advised. Ordered: alendronate, 35 mg = 1 tab(s), Oral, q7day, # 4 tab(s), Refills(s) 0, Pharmacy: [facility], 168, cm, 10/09/23 15:44:00 EDT, Height/Length Dosing, 76.4, kg, 10/09/23 15:44:00 EDT, Weight Dosing Body Mass Index (BMI) documented 3008F Current tobacco non-user 1036F Depression Screening Negative 3352F Influenza immunization administered or previously received 4274F Most recent diastolic blood pressure <80 mm Hg 3078F Patient screen for fall risk: no falls in last year or 1 fall with no injury in last year 1101F Systolic BP <130 mm Hg (Most Recent) 3074F 8. Former smoker (Z87.891: Personal history of nicotine dependence) - Please continue to not smoke. Ordered: alendronate, 35 mg = 1 tab(s), Oral, q7day, # 4 tab(s), Refills(s) 0, Pharmacy: [facility], 168, cm, 10/09/23 15:44:00 EDT, Height/Length Dosing, 76.4, kg, 10/09/23 15:44:00 EDT, Weight Dosing Body Mass Index (BMI) documented 3008F Current tobacco non-user 1036F Depression Screening Negative 3352F Influenza immunization administered or previously received 4274F Most recent diastolic blood pressure <80 mm Hg 3078F Patient screen for (more content not included)... Normal [facility] Comment on above: Result Comment: Elec tronically Signed By: Navjot KAYE, Julee Morgan.br\Date and Time Signed: 10/09/23 16:15 EDT Provider Letteron 10-09-2023 Provider Letter October 09, 2023 YAMILE ROSE [address] [place] [id number] : 1955 To Whom It May Concern, Please excuse above patient from work, Rocio Mcconnell was here with her mother for her appt. @ 3:[address] De Los Santos. Date of Illness: From: _ To: _ May Return to Work On:10-10-23 Restrictions: _ Comments: _ Sincerely, [address] [address] [facility] CNPNon 10-06-2023 CNPN Telephone (RHEUMN) YAMILE ROSE ([id number]) 1955 F Date Time Provider Department 10/06/23 HARISH MARSHALL RHEUMN During your visit today, we recorded the following information about you: Pierce Cohen 10/06/2023 11:13 AM Signed Received XR DEXA axial skeleton results via fax from [facility] 6 pgs Exam date 09/25/23 Scanned under imaging Pt has aleah 11/15/23 /12:30pm Saad Melendez RN 10/06/2023 11:29 AM Signed Scan on 10/06/2023 10:54 AM by Provider, External, PA-C: XR DEXA axial skeleton Allergies As of Date: 10/06/2023 Noted Allergy Reaction CEFUROXIME 11/02/2021 4 - Hives Date Reviewed: 08/16/2023 Reviewed by: Maria C Hopper MA - Fully Assessed Reason for Visit: Results [95] Prescriptions as of 10/06/2023 - methotrexate 2.5 mg tablet Take 8 tablets by mouth one time a week. - folic acid 1 mg tablet Take 2 tablets by mouth once daily. - atorvastatin (LIPITOR) 20 mg tablet 1 PO at bedtime - predniSONE (DELTASONE) 5 mg tablet Take 1 tablet by mouth as needed. Take 1 tablet by mouth daily as needed - metFORMIN (GLUCOPHAGE) 850 mg tablet TAKE 1 TABLET BY MOUTH DAILY WITH BREAKFAST AND supper Problem List As Of Date 10/06/2023 Noted Resolved Arthritis [M19.90] 07/27/2010 Bronchitis [J40] 07/27/2010 Hyperlipidemia [E78.5] 07/27/2010 Macular degeneration [H35.30] 07/27/2010 UTI (urinary tract infection) [N39.0] 07/27/2010 Tobacco abuse [Z72.0] 07/27/2010 Rheumatoid arthritis involving multiple sites w*05/29/2018 Encounter Status:Closed by SAAD MELENDEZ on 10/06/[address] [facility] Dexa Scanson 10-05-2023 Dexa Scans [id number] 30 [id number]#1.0 0TIFF Normal [facility] Dexa Scanson 09-26-2023 Dexa Scans [id number] 30 [id number]#1.0 0TIFF Normal [facility] Outside Mammographyon 2023 Outside Mammography [id number] 30 [id number]#1.0 0TIFF Normal [facility] Family Medicine Office/Clini c Noteon 09-19-2023 Family [...] of clutter to prevent tripping and/or falling. [place] Advance Directives reviewed, on file at paper colorer office. Patient denies any problems with ADL?s [...] PCP visit. Will have labs completed with [facility]. Colonoscopy last completed in 2020 per patient. DEXA scan ordered and faxed to [facility]. Mammogram is due and order at [facility], patient to schedule with [facility]. Reviewed pain symptoms with patient: patient denies [...] with CDC recommendation that everyone born from [birth year] get tested for Hepatitis C. This is [...] 199, Tri (more content not included)... Normal [facility] Comment on above: Result Comment: Elec tronically Signed By: Silvia Diaz\.br\Date and Time Signed: 09/19/23 13:00 EST\.br\Electronically Co-Signed By: Dennis Grant\.br\Date and Time Co-Signed: 09/15/23 12:44 EST Ambulatory [...] diabetes mellitus Invalid Interpretation Code BMI 26.0-26.9,adult [facility] Ambulatory Visit Summary YAMILE ROSE :1955 [...] diabetes mellitus Invalid Interpretation Code BMI 26.0-26.9,adult [facility] Ambulatory Visit Summary YAMILE ROSE Amber [...] diabetes mellitus Invalid Interpretation Code BMI 26.0-26.9,adult [facility] Family Medicine Office/Clini c Noteon 09-15-2023 [...] Also if she could get order for [employer] system. History of Present Illness pt presents [...] Daily, # 30 tab(s), Refills(s) 2, Pharmacy: [facility], 169, cm, 07/11/23 14:36:00 EST, Height/Length Dosing, 75.6, kg, 07/11/23 14:36:00 EST, Weight Dosing E&M of Est. Patient Low 20-29 Min 06102 HgbA1c Medicare Subsequent Visit G0439 3. BMI 26.0-26.9,adult (Z68.26: Body mass index [BMI] 26.0-26.9, adult) BMI education complete Ordered: escitalopram, 5 mg = 1 tab(s), Oral, Daily, # 30 tab(s), Refills(s) 2, Pharmacy: [facility], 169, cm, 07/11/23 14:36:00 EST, Height/Length Dosing, 75.6, kg, 07/11/23 14:36:00 EST, Weight Dosing E&M of Est. Patient Low 20-29 Min 93415 HgbA1c Medicare Subsequent Visit G0439 4. Non-smoker (Z78.9: Other specified health status) continue not smoking Ordered: E&M of Est. Patient Low 20-29 Min 47164 HgbA1c Orders: semaglutide, 0.25 mg, SubCutaneous, qWeek, increase to 0.5 mg after 4 weeks, # 4 EA, Refills(s) 6, Pharmacy: [facility], 169, cm, 09/15/23 10:48:00 EST, Height/Length Dosing, 77, kg, 09/15/23 10:48:00 EST, Weight Dosing semaglutide, 0.5 mg, SubCutaneous, qWeek, # 12 EA, Refills(s) 1, Pharmacy: [facility], 170.2, cm, 04/10/23 13:28:00 EDT, Height/Length [...] Degenerative lumbar (more content not included)... Normal [facility] Comment on above: Result Comment: Elec tronically Signed By: Silvia Diaz\.br\Date and Time Signed: 09/15/23 12:54 EST Patient [...] night-lights. ? Place frequently used items in dhbv-op-buocp places. Lower the shelves around your home [...] the way. ? Do not use floor mauritanian or wax that makes floors slippery. If [...] include working with a physical therapist or hydraulic strainer operator to improve your strength, balance, and endurance. Where to find more information ? Centers for Disease Control and Prevention, [place]: www.cdc.gov ? National [place] on Aging: www.marie.nih.gov Contact a health care [...] health ca (more content not included)... Normal [facility] Screenson 09-15-2023 Screens [id number] 20 [id number]#1.0 0TIFF Normal [facility] Ambulatory Visit Summaryon 0 09-11-2023 Ambulatory Visit [...] 10:20 AM EST With: Silvia Diaz Where: [facility] Normal [address] [id number]- \.br\ Medications\.br \ What How Much When [...] choosing us for your care.\.br\ \.br\ [facility] Family Medicine Office/Clini c Noteon 09-11-2023 Family [...] day(s), # 10 tab(s), Refills(s) 0, Pharmacy: [facility], 169, cm, 09/11/23 11:22:00 EST, Height/Length Dosing, 75.9, kg, 09/11/23 11:20:00 EST, Weight Dosing Body Mass Index (BMI) documented 3008F Current tobacco non-user 1036F Depression Screening Negative 3352F Influenza Type A&B POC 28061 Medication list documented in medical record 1159F Patient screen for fall risk: no falls in last year or 1 fall with no injury in last year 1101F Rapid COVID POC 31759 2. Nasal congestion (R09.81: Nasal congestion) Negative influenza & COVID rapid tests in the office today Ordered: levofloxacin, 500 mg = 1 tab(s), Oral, q24hr, X 10 day(s), # 10 tab(s), Refills(s) 0, Pharmacy: [facility], 169, cm, 09/11/23 11:22:00 EST, Height/Length Dosing, 75.9, kg, 09/11/23 11:20:00 EST, Weight Dosing Body Mass Index (BMI) documented 3008F Current tobacco non-user 1036F Depression Screening Negative 3352F Influenza Type A&B POC 32858 Medication list documented in medical record 1159F Patient screen for fall risk: no falls in last year or 1 fall with no injury in last year 1101F Rapid COVID POC 70109 3. Controlled type 2 diabetes mellitus without [...] day(s), # 10 tab(s), Refills(s) 0, Pharmacy: [facility], 169, cm, 09/11/23 11:22:00 EST, Height/Length [...] deficiency Wh (more content not included)... Normal [facility] Comment on above: Result Comment: Elec tronically Signed By: JEANINE VAZQUEZ CNP\Date and Time Signed: 09/11/23 12:51 EST Outside Diabetes Eye Examon 09-04-2023 Outside Diabetes Eye Exam [id number]#1. 00TIFF Normal [facility] Outside Diabetes Eye Exam [id number]#1.0 0TIFF Normal [facility] Consultation Noteon 08-17-19 Consultation Note [id number] 10 [id number]#1.0 0TIFF Normal [facility] ALT SerPl-cCncon 08-16-2023 ALT [Catalytic activity/Vol] 19 U/L Normal 7-[address] [facility] Comment on above: Order Comment: Speci men Type: BLOOD SPECIMEN Ordering Facility: [facility] Address: [address] [place] [address] Performed By: #### 5 7021-8 #### [facility] CLIA [id number] [address] [place] [address] [place] AST SerPl-cCncon 08-16-2023 AST [Catalytic activity/Vol] 15 U/L Normal 13-[address] [facility] Comment on above: Order Comment: Speci men Type: BLOOD SPECIMEN Ordering Facility: [facility] Address: [address] [place] [address] Performed By: #### 5 7021-8 #### [facility] CLIA [id number] [address] [place] [address] [place] Albumin SerPl-mCncon 024 Albumin [Mass/Vol] 4.2 g/dL Normal 3.9-4.9 [facility] Comment on above: Order Comment: Speci men Type: BLOOD SPECIMEN Ordering Facility: [facility] Address: [address] [place] [address] Performed By: #### 5 7021-8 #### [facility] CLIA [id number] [address] [place] [address] [place] CBC W Auto Differential pane l (Bld)on 08-16-2023 Basophils (Bld) [#/Vol] 0.08 10*3/uL Normal <0.[address] [facility] Comment on above: Order Comment: Speci men Type: BLOOD SPECIMEN Ordering Facility: [facility] Address: [address] [place] [address] Performed By: #### 5 7021-8 #### [facility] CLIA [id number] [address] [place] [address] [place] Basophils/100 WBC (Bld) 1.2 % Normal [facility] Comment on above: Order Comment: Speci men Type: BLOOD SPECIMEN Ordering Facility: [facility] Address: [address] [place] [address] Performed By: #### 5 7021-8 #### [facility] CLIA [id number] [address] [place] [address] [place] Differential cell count method Nom (Bld) Auto Normal [facility] Comment on above: Order Comment: Speci men Type: BLOOD SPECIMEN Ordering Facility: [facility] Address: [address] [place] [address] Performed By: #### 5 7021-8 #### [facility] CLIA [id number] [address] [place] [address] [place] Eosinophils (Bld) [#/Vol] 0.12 10*3/uL Normal <0.[address] [facility] Comment on above: Order Comment: Speci men Type: BLOOD SPECIMEN Ordering Facility: [facility] Address: [address] [place] [address] Performed By: #### 5 7021-8 #### [facility] CLIA [id number] [address] [place] [address] [place] Eosinophils/100 WBC (Bld) 1.7 % Normal [facility] Comment on above: Order Comment: Speci men Type: BLOOD SPECIMEN Ordering Facility: [facility] Address: [address] [place] [address] Performed By: #### 5 7021-8 #### [facility] CLIA [id number] [address] [place] [address] [place] Erythrocyte distribution width (RBC) [Ratio] 14.2 % Normal 11.5-15.[address] [facility] Comment on above: Order Comment: Speci men Type: BLOOD SPECIMEN Ordering Facility: [facility] Address: [address] [place] [address] Performed By: #### 5 7021-8 #### [facility] CLIA [id number] [address] [place] [address] [place] Hematocrit (Bld) [Volume fraction] 45.1 % Normal 36.0-46.[address] [facility] Comment on above: Order Comment: Speci men Type: BLOOD SPECIMEN Ordering Facility: [facility] Address: [address] [place] [address] Performed By: #### 5 7021-8 #### [facility] CLIA [id number] [address] [place] [address] [place] Hemoglobin (Bld) [Mass/Vol] 15.4 g/dL Normal 11.5-15.[address] [facility] Comment on above: Order Comment: Speci men Type: BLOOD SPECIMEN Ordering Facility: [facility] Address: [address] [place] [address] Performed By: #### 5 7021-8 #### [facility] CLIA [id number] [address] [place] [address] [place] Immature granulocytes (Bld) [#/Vol] 0.03 10*3/uL Normal <0.[address] [facility] Comment on above: Order Comment: Speci men Type: BLOOD SPECIMEN Ordering Facility: [facility] Address: [address] [place] [address] Performed By: #### 5 7021-8 #### [facility] CLIA [id number] [address] [place] [address] [place] Immature granulocytes/100 WBC (Bld) 0.4 % Normal [facility] Comment on above: Order Comment: Speci men Type: BLOOD SPECIMEN Ordering Facility: [facility] Address: [address] [place] [address] Performed By: #### 5 7021-8 #### [facility] CLIA [id number] [address] [place] [address] [place] Lymphocytes (Bld) [#/Vol] 1.91 10*3/uL Normal 1.00-4.[address] [facility] Comment on above: Order Comment: Speci men Type: BLOOD SPECIMEN Ordering Facility: [facility] Address: [address] [place] [address] Performed By: #### 5 7021-8 #### [facility] CLIA [id number] [address] [place] [address] [place] Lymphocytes/100 WBC (Bld) 27.8 % Normal [facility] Comment on above: Order Comment: Speci men Type: BLOOD SPECIMEN Ordering Facility: [facility] Address: [address] [place] [address] Performed By: #### 5 7021-8 #### [facility] CLIA [id number] [address] [place] [address] [place] MCH (RBC) [Entitic mass] 32.1 pg Normal 26.0-34.[address] [facility] Comment on above: Order Comment: Speci men Type: BLOOD SPECIMEN Ordering Facility: [facility] Address: [address] [place] [address] Performed By: #### 5 7021-8 #### [facility] CLIA [id number] [address] [place] [address] [place] MCHC (RBC) [Mass/Vol] 34.1 g/dL Normal 30.5-36.0 [facility] Comment on above: Order Comment: Speci men Type: BLOOD SPECIMEN Ordering Facility: [facility] Address: [address] [place] [address] Performed By: #### 5 7021-8 #### [facility] CLIA [id number] [address] [place] [address] [place] MCV (RBC) [Entitic vol] 94.0 fL Normal 80.0-100.[address] [facility] Comment on above: Order Comment: Speci men Type: BLOOD SPECIMEN Ordering Facility: [facility] Address: [address] [place] [address] Performed By: #### 5 7021-8 #### [facility] CLIA [id number] [address] [place] [address] [place] Monocytes (Bld) [#/Vol] 0.36 10*3/uL Normal <0.[address] [facility] Comment on above: Order Comment: Speci men Type: BLOOD SPECIMEN Ordering Facility: [facility] Address: [address] [place] [address] Performed By: #### 5 7021-8 #### [facility] CLIA [id number] [address] [place] [address] [place] Monocytes/100 WBC (Bld) 5.2 % Normal [facility] Comment on above: Order Comment: Speci men Type: BLOOD SPECIMEN Ordering Facility: [facility] Address: [address] [place] [address] Performed By: #### 5 7021-8 #### [facility] CLIA [id number] [address] [place] [address] [place] Neutrophils (Bld) [#/Vol] 4.36 10*3/uL Normal 1.45-7.[address] [facility] Comment on above: Order Comment: Speci men Type: BLOOD SPECIMEN Ordering Facility: [facility] Address: [address] [place] [address] Performed By: #### 5 7021-8 #### [facility] CLIA [id number] [address] [place] [address] [place] Neutrophils/100 WBC (Bld) 63.7 % Normal [facility] Comment on above: Order Comment: Speci men Type: BLOOD SPECIMEN Ordering Facility: [facility] Address: [address] [place] [address] Performed By: #### 5 7021-8 #### [facility] CLIA [id number] [address] [place] [address] [place] Nucleated RBC (Bld) [#/Vol] 10*3/uL Normal <0.[address] [facility] Comment on above: Order Comment: Speci men Type: BLOOD SPECIMEN Ordering Facility: [facility] Address: [address] [place] [address] Performed By: #### 5 7021-8 #### [facility] CLIA [id number] [address] [place] [address] [place] Nucleated RBC/100 WBC (Bld) [Ratio] 0.0 /[address] [facility] Comment on above: Order Comment: Speci men Type: BLOOD SPECIMEN Ordering Facility: [facility] Address: [address] [place] [address] Performed By: #### 5 7021-8 #### [facility] CLIA [id number] [address] [place] [address] [place] Platelet mean volume (Bld) [Entitic vol] 10.1 fL Normal 9.0-12.[address] [facility] Comment on above: Order Comment: Speci men Type: BLOOD SPECIMEN Ordering Facility: [facility] Address: [address] [place] [address] Performed By: #### 5 7021-8 #### [facility] CLIA [id number] [address] [place] [address] [place] Platelets (Bld) [#/Vol] 211 10*3/uL Normal 150-[address] [facility] Comment on above: Order Comment: Speci men Type: BLOOD SPECIMEN Ordering Facility: [facility] Address: [address] [place] [address] Performed By: #### 5 7021-8 #### [facility] CLIA [id number] [address] [place] [address] [place] RBC (Bld) [#/Vol] 4.80 10*6/uL Normal 3.90-5.20 [facility] Comment on above: Order Comment: Speci men Type: BLOOD SPECIMEN Ordering Facility: [facility] Address: [address] [place] [address] Performed By: #### 5 7021-8 #### [facility] CLIA [id number] [address] [place] [address] [place] WBC (Bld) [#/Vol] 6.86 10*3/uL Normal 3.70-11.00 [facility] Comment on above: Order Comment: Speci men Type: BLOOD SPECIMEN Ordering Facility: [facility] Address: [address] [place] [address] Performed By: #### 5 7021-8 #### [facility] CLIA [id number] [address] [place] [address] [place] CNOVon 08-16-2023 CNOV Office Visit (ERWIN ) YAMILE ROSE ([id number]) 1955 F Date Time Provider Department 08/16/23 12:30 PM HARISH MARSHALL During your visit today, we recorded the following information about you: Pulse Blood pressure Weight 68/minute 130/74 75.9 kg Harish Marshall MD 08/16/2023 12:58 PM Signed [facility] Date of Service: 08/16/2023 Patient: Yamile Rose Medical Record: [id number] Primary Care Physician: Aleksander Jimenez MD Referring [...] was being followed by local rheumatology in [place], but her daughter wanted her to get a 2nd opinion at [facility]. Seen by Dr. Livingston in 05/2018 Her local rheum added methotrexate which she started after her visit here in 05/2018 She was following with sustainability purchasing agent at [place] however her insurance was no more covering the sustainability purchasing agent in [place] so she came back to [facility]. Patient reports pain over MCPs, PIPs, wrists, [...] SOME difficu (more content not included)... Normal [facility] CREATININE BLDon 08-16-2023 Creatinine [Mass/Vol] 0.85 mg/dL Normal 0.58-0.96 [facility] Comment on above: Order Comment: Speci men Type: BLOOD SPECIMEN Ordering Facility: [facility] Address: [address] [place] [address] Performed By: #### 5 7021-8 #### [facility] [place] [id number] [facility] [place] [address] [place] Creatinine and Glomerular filtration rate.predicted panel (S/P/Bld) 76 mL/min/1.73m??? Normal >=[address] [facility] Comment on above: Order Comment: Speci men Type: BLOOD SPECIMEN Ordering Facility: [facility] Address: [address] [place] [address] Result Comment: Rimma mated Glomerular Filtration Rate [...] accurately reflect actual GFR. Performed By: #### 5 7021-8 #### [facility] [place] [id number] [address] [place] [address] [place] RAD - MISCon 07-20-2023 RAD - MISC [id number] 0TIFF Normal [facility] Ambulatory Visit Summaryon 1 09-19-2022 Ambulatory Visit Summary YAMILE ROSE :1955 Visit Date:07/19/2023 Ambulatory Visit Instructions Your Diagnosis BMI 26.0-26.9,adult Over weight Nonsmoker Your Care Team Attending Physician - Silvia Diaz Primary Care Physician - Navjot KAYE, Julee Byers This Is Your Medications List Misc Prescription [...] 10:20 AM EST With: Silvia Diaz Where: [facility] Normal [address] [id number]- \.br\ Medications\.br \ What How Much When [...] choosing us for your care.\.br\ \.br\ [facility] Family Medicine Office/Clini c Noteon 07-19-2023 Family Medicine Office/Clinic Note HPI Staff Ovalle is a 68 year old female presenting [...] injection at last visit. 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 she bought Robitussin instead. pt have severe wheezing in all lung [place]. pt given order for chest x ray to be done at [facility]. pt states she doesn't sleep much because she is coughing so much. will send medrol dose pack, levofloxacin and albuterol inhaler. all questions answered. RTC as needed Ordered: benzonatate, 100 mg = 1 cap(s), Oral, TID, X 7 day(s), # 21 cap(s), Refills(s) 0, Pharmacy: [facility], 169, cm, 07/11/23 14:36:00 EST, Height/Length Dosing, 75.6, kg, 07/11/23 14:36:00 EST, Weight Dosing 2. Nasal congestion (R09.81: Nasal congestion) see above 3. BMI 26.0-26.9,adult (Z68.26: Body mass index [BMI] 26.0-26.9, adult) BMI education complete Ordered: albuterol, 2 puff(s), Inhalation, q6hr, 8.5 gm, Refill(s) 0, [facility], 169, cm, 07/19/23 13:15:00 EST, Height/Length Dosing, 75.1, kg, 07/19/23 13:15:00 EST, Weight Dosing benzonatate, 100 mg = 1 cap(s), Oral, TID, X 7 day(s), # 21 cap(s), Refills(s) 0, Pharmacy: [facility], 169, cm, 07/11/23 14:36:00 EST, Height/Length Dosing, 75.6, kg, 07/11/23 14:36:00 EST, Weight Dosing levofloxacin, 500 mg = 1 tab(s), Oral, q24hr, X 7 day(s), # 7 tab(s), Refills(s) 0, Pharmacy: [facility], 169, cm, 07/19/23 13:15:00 EST, Height/Length Dosing, 75.1, kg, 07/19/23 13:15:00 EST, Weight Dosing methylPREDNISolone, = 1 packet(s), Oral, As Directed, as directed on package labeling, X 6 day(s), # 21 tab(s), Refills(s) 0, Pharmacy: [facility], 169, cm, 07/19/23 13:15:00 EST, Height/Length [...] puff(s), Inhalation, q6hr, 8.5 gm, Refill(s) 0, [facility], 169, cm, 07/19/23 13:15:00 EST, Height/Length Dosing, 75.1, kg, 07/19/23 13:15:00 EST, Weight Dosing benzonatate, 100 mg = 1 cap(s), Oral, TID, X 7 day(s), # 21 cap(s), Refills(s) 0, Pharmacy: [facility], 169, cm, 07/11/23 14:36:00 EST, Height/Length Dosing, 75.6, kg, 07/11/23 14:36:00 EST, Weight Dosing levofloxacin, 500 mg = 1 tab(s), Oral, q24hr, X 7 day(s), # 7 tab(s), Refills(s) 0, Pharmacy: [facility] #[facility], 169, cm, 07/19/23 13:15:00 EST, Height/Length Dosing, 75.1, kg, 07/19/23 13:15:00 EST, Weight Dosing methylPREDNISolone, = 1 packet(s), Oral, As Directed, as directed on package labeling, X 6 day(s), # 21 tab(s), Refills(s) 0, Pharmacy: [facility] #[facility], 169, cm, 07/19/23 13:15:00 EST, Height/Length Dosing, 75.1, kg, 06/24 (more content not included)... [facility] Comment on above: Result Comment: Elec tronically Signed By: Silvia Diaz\.christopher\Date and Time Signed: 07/19/23 13:36 EST Patient Correspondenceon Patient Correspondence [id number]#[id number] 0TIFF [facility] Physician Orderon 07-19-2023 Physician Order [id number] 20 [id number]#1.0 0TIFF [facility] Consenton 07-12-2023 Consent [id number]#1.0 0TIFF Normal [facility] Ambulatory Visit Summaryon 1 09-11-2022 Ambulatory [...] 10:40 AM EST With: Silvia Diaz Where: [facility] Normal [address] [place] [address]- \.br\ Medications\.br \ What How Much When [...] choosing us for your care.\.br\ \.br\ [facility] Family Medicine Office/Clini c Noteon 07-11-2023 Family Medicine Office/Clinic Note HPI Staff [...] day(s), # 6 tab(s), Refills(s) 0, Pharmacy: [facility], 169, cm, 07/11/23 14:36:00 EST, Height/Length Dosing, 75.6, kg, 07/11/23 14:36:00 EST, Weight Dosing benzonatate, 100 mg = 1 cap(s), Oral, TID, X 7 day(s), # 21 cap(s), Refills(s) 0, Pharmacy: [facility], 169, cm, 07/11/23 14:36:00 EST, Height/Length Dosing, 75.6, kg, 07/11/23 14:36:00 EST, Weight Dosing 2. Wheezing (R06.2: Wheezing) expiratory wheezing noted on expiration. kenalog given in office today. z radha and tessalon pearls sent Ordered: azithromycin, = 1 packet(s), Oral, As Directed, as directed on package labeling, X 5 day(s), # 6 tab(s), Refills(s) 0, Pharmacy: [facility], 169, cm, 07/11/23 14:36:00 EST, Height/Length Dosing, 75.6, kg, 07/11/23 14:36:00 EST, Weight Dosing benzonatate, 100 mg = 1 cap(s), Oral, TID, X 7 day(s), # 21 cap(s), Refills(s) 0, Pharmacy: [facility], 169, cm, 07/11/23 14:36:00 EST, Height/Length Dosing, 75.6, kg, 07/11/23 14:36:00 EST, Weight Dosing 3. Cough (R05.9: Cough, unspecified) severe cough worse at night Ordered: azithromycin, = 1 packet(s), Oral, As Directed, as directed on package labeling, X 5 day(s), # 6 tab(s), Refills(s) 0, Pharmacy: [facility], 169, cm, 07/11/23 14:36:00 EST, Height/Length Dosing, 75.6, kg, 07/11/23 14:36:00 EST, Weight Dosing benzonatate, 100 mg = 1 cap(s), Oral, TID, X 7 day(s), # 21 cap(s), Refills(s) 0, Pharmacy: [facility], 169, cm, 07/11/23 14:36:00 EST, Height/Length [...] day(s), # 6 tab(s), Refills(s) 0, Pharmacy: [facility], 169, cm, 07/11/23 14:36:00 EST, Height/Length Dosing, 75.6, kg, 07/11/23 14:36:00 EST, Weight Dosing benzonatate, 100 mg = 1 cap(s), Oral, TID, X 7 day(s), # 21 cap(s), Refills(s) 0, Pharmacy: [facility], 169, cm, 07/11/23 14:36:00 EST, Height/Length [...] 1 packet(s), (more content not included)... Normal [facility] Comment on above: Result Comment: Elec tronically Signed By: Silvia Diaz\.br\Date and Time Signed: 07/11/23 15:10 EST [id number] 07-10-2023 HbA1c (Bld) [Mass fraction] 6.1 % High <=5.9 [facility] Comment on above: Performed By: #### 7 [id number] ####[facility] [id number] [place] [address] Nurse Consultation Noteon Nurse Consultation Note Reason [...] Given Postpone due to refusal SARS-CoV-2 (COVID-19) mRNAMUL.[id number] 08/10/2022 Recorded influenza virus vaccine, inactivated 05/13/2022 [...] Recorded pneumococcal 23-valent vaccine 04/24/2015 Recorded Normal [facility] CBC W Auto Differential pane l (Bld)on 05-10-2023 Basophils (Bld) [#/Vol] 0.08 10*3/uL <0.11 k/uL [facility] Basophils/100 WBC (Bld) 1.2 % [facility] Differential cell count method Nom (Bld) Auto [facility] Eosinophils (Bld) [#/Vol] 0.17 10*3/uL <0.46 k/uL [facility] Eosinophils/100 WBC (Bld) 2.6 % [facility] Erythrocyte distribution width (RBC) [Ratio] 13.3 % 11.5 - 15.0 % [facility] Hematocrit (Bld) [Volume fraction] 43.6 % 36.0 - 46.0 % [facility] Hemoglobin (Bld) [Mass/Vol] 14.3 g/dL 11.5 - 15.5 g/dL [facility] Immature granulocytes (Bld) [#/Vol] <0.10 k/uL [facility] Immature granulocytes/100 WBC (Bld) 0.2 % [facility] Lymphocytes (Bld) [#/Vol] 1.98 10*3/uL 1.00 - 4.00 k/uL [facility] Lymphocytes/100 WBC (Bld) 29.9 % [facility] MCH (RBC) [Entitic mass] 30.6 pg 26.0 - 34.0 pg [facility] MCHC (RBC) [Mass/Vol] 32.8 g/dL 30.5 - 36.0 g/dL [facility] MCV (RBC) [Entitic vol] 93.2 fL 80.0 - 100.0 fL [facility] Monocytes (Bld) [#/Vol] 0.43 10*3/uL <0.87 k/uL [facility] Monocytes/100 WBC (Bld) 6.5 % [facility] Neutrophils (Bld) [#/Vol] 3.96 10*3/uL 1.45 - 7.50 k/uL [facility] Neutrophils/100 WBC (Bld) 59.6 % [facility] Nucleated RBC (Bld) [#/Vol] <0.01 k/uL [facility] Nucleated RBC/100 WBC (Bld) [Ratio] 0.0 /100 WBC [facility] Platelet mean volume (Bld) [Entitic vol] 10.5 fL 9.0 - 12.7 fL [facility] Platelets (Bld) [#/Vol] 200 10*3/uL 150 - 400 k/uL [facility] RBC (Bld) [#/Vol] 4.68 10*6/uL 3.90 - 5.2 0 m/uL [facility] WBC (Bld) [#/Vol] 6.63 10*3/uL 3.70 - 11. 00 k/uL [facility] Basophils (Bld) [#/Vol] 0.08 10*3/uL Normal <0.[address] [facility] Comment on above: Order Comment: Speci men Type: BLOOD SPECIMENOrdering Facility: [facility] Address: [address] [place] [address] Performed By: #### 5 7021-8 ####[facility] [id number] [place] [address] [place] Basophils/100 WBC (Bld) 1.2 % Normal [facility] Comment on above: Order Comment: Speci men Type: BLOOD SPECIMENOrdering Facility: [facility] Address: [address] [place] [address] Performed By: #### 5 7021-8 ####[facility] [id number] [place] [address] [place] Differential cell count method Nom (Bld) Auto Normal [facility] Comment on above: Order Comment: Speci men Type: BLOOD SPECIMENOrdering Facility: [facility] Address: [address] [place] [address] Performed By: #### 5 7021-8 ####[facility] [id number] [place] [address] [place] Eosinophils (Bld) [#/Vol] 0.17 10*3/uL Normal <0.[address] [facility] Comment on above: Order Comment: Speci men Type: BLOOD SPECIMENOrdering Facility: [facility] Address: [address] [place] [address] Performed By: #### 5 7021-8 ####[facility] [id number] [place] [address] [place] Eosinophils/100 WBC (Bld) 2.6 % Normal [facility] Comment on above: Order Comment: Speci men Type: BLOOD SPECIMENOrdering Facility: [facility] Address: [address] [place] [address] Performed By: #### 5 7021-8 ####[facility] [id number] [place] [address] [place] Erythrocyte distribution width (RBC) [Ratio] 13.3 % Normal 11.5-15.[address] [facility] Comment on above: Order Comment: Speci men Type: BLOOD SPECIMENOrdering Facility: [facility] Address: [address] [place] [address] Performed By: #### 5 7021-8 ####[facility] [id number] [place] [address] [place] Hematocrit (Bld) [Volume fraction] 43.6 % Normal 36.0-46.[address] [facility] Comment on above: Order Comment: Speci men Type: BLOOD SPECIMENOrdering Facility: [facility] Address: [address] [place] [address] Performed By: #### 5 7021-8 ####[facility] [id number] [place] [address] [place] Hemoglobin (Bld) [Mass/Vol] 14.3 g/dL Normal 11.5-15.[address] [facility] Comment on above: Order Comment: Speci men Type: BLOOD SPECIMENOrdering Facility: [facility] Address: [address] [place] [address] Performed By: #### 5 7021-8 ####[facility] [id number] [place] [address] [place] Immature granulocytes (Bld) [#/Vol] 10*3/uL Normal <0.[address] [facility] Comment on above: Order Comment: Speci men Type: BLOOD SPECIMENOrdering Facility: [facility] Address: [address] [place] [address] Performed By: #### 5 7021-8 ####[facility] [id number] [place] [address] [place] Immature granulocytes/100 WBC (Bld) 0.2 % Normal [facility] Comment on above: Order Comment: Speci men Type: BLOOD SPECIMENOrdering Facility: [facility] Address: [address] [place] [address] Performed By: #### 5 7021-8 ####[facility] [id number] [place] [address] [place] Lymphocytes (Bld) [#/Vol] 1.98 10*3/uL Normal 1.00-4.[address] [facility] Comment on above: Order Comment: Speci men Type: BLOOD SPECIMENOrdering Facility: [facility] Address: [address] [place] [address] Performed By: #### 5 7021-8 ####[facility] [id number] [place] [address] [place] Lymphocytes/100 WBC (Bld) 29.9 % Normal [facility] Comment on above: Order Comment: Speci men Type: BLOOD SPECIMENOrdering Facility: [facility] Address: [address] [place] [address] Performed By: #### 5 7021-8 ####[facility] [id number] [place] [address] [place] MCH (RBC) [Entitic mass] 30.6 pg Normal 26.0-34.[address] [facility] Comment on above: Order Comment: Speci men Type: BLOOD SPECIMENOrdering Facility: [facility] Address: [address] [place] [address] Performed By: #### 5 7021-8 ####[facility] [id number] [place] [address] [place] MCHC (RBC) [Mass/Vol] 32.8 g/dL Normal 30.5-36.0 [facility] Comment on above: Order Comment: Speci men Type: BLOOD SPECIMENOrdering Facility: [facility] Address: [address] [place] [address] Performed By: #### 5 7021-8 ####[facility] [id number] [place] [address] [place] MCV (RBC) [Entitic vol] 93.2 fL Normal 80.0-100.[address] [facility] Comment on above: Order Comment: Speci men Type: BLOOD SPECIMENOrdering Facility: [facility] Address: [address] [place] [address] Performed By: #### 5 7021-8 ####[facility] [id number] [place] [address] [place] Monocytes (Bld) [#/Vol] 0.43 10*3/uL Normal <0.[address] [facility] Comment on above: Order Comment: Speci men Type: BLOOD SPECIMENOrdering Facility: [facility] Address: [address] [place] [address] Performed By: #### 5 7021-8 ####[facility] [id number] [place] [address] [place] Monocytes/100 WBC (Bld) 6.5 % Normal [facility] Comment on above: Order Comment: Speci men Type: BLOOD SPECIMENOrdering Facility: [facility] Address: [address] [place] [address] Performed By: #### 5 7021-8 ####[facility] [id number] [place] [address] [place] Neutrophils (Bld) [#/Vol] 3.96 10*3/uL Normal 1.45-7.[address] [facility] Comment on above: Order Comment: Speci men Type: BLOOD SPECIMENOrdering Facility: [facility] Address: [address] [place] [address] Performed By: #### 5 7021-8 ####[facility] [id number] [place] [address] [place] Neutrophils/100 WBC (Bld) 59.6 % Normal [facility] Comment on above: Order Comment: Speci men Type: BLOOD SPECIMENOrdering Facility: [facility] Address: [address] [place] [address] Performed By: #### 5 7021-8 ####[facility] [id number] [place] [address] [place] Nucleated RBC (Bld) [#/Vol] 10*3/uL Normal <0.[address] [facility] Comment on above: Order Comment: Speci men Type: BLOOD SPECIMENOrdering Facility: [facility] Address: [address] [place] [address] Performed By: #### 5 7021-8 ####[facility] [id number] [place] [address] [place] Nucleated RBC/100 WBC (Bld) [Ratio] 0.0 /[address] [facility] Comment on above: Order Comment: Speci men Type: BLOOD SPECIMENOrdering Facility: [facility] Address: [address] [place] [address] Performed By: #### 5 7021-8 ####[facility] [id number] [place] [address] [place] Platelet mean volume (Bld) [Entitic vol] 10.5 fL Normal 9.0-12.[address] [facility] Comment on above: Order Comment: Speci men Type: BLOOD SPECIMENOrdering Facility: [facility] Address: [address] [place] [address] Performed By: #### 5 7021-8 ####[facility] [id number] [place] [address] [place] Platelets (Bld) [#/Vol] 200 10*3/uL Normal 150-[address] [facility] Comment on above: Order Comment: Speci men Type: BLOOD SPECIMENOrdering Facility: [facility] Address: [address] [place] [address] Performed By: #### 5 7021-8 ####[facility]IA [id number] [place] [address] [place] RBC (Bld) [#/Vol] 4.68 10*6/uL Normal 3.90-5.20 [facility] Comment on above: Order Comment: Speci men Type: BLOOD SPECIMENOrdering Facility: [facility] Address: [address] [place] [address] Performed By: #### 5 7021-8 ####[facility] [id number] [place] [address] [place] WBC (Bld) [#/Vol] 6.63 10*3/uL Normal 3.70-11.00 [facility] Comment on above: Order Comment: Speci men Type: BLOOD SPECIMENOrdering Facility: [facility] Address: [address] [place] [address] Performed By: #### 5 7021-8 ####[facility] [id number] [place] [address] [place] CNOVon 05-10-2023 CNOV Office Visit (ERWIN ) YAMILE ROSE ([id number]) 1955 F Date Time Provider Department 05/10/23 12:30 PM HARISH MARSHALL During your visit today, we recorded the following information about you: Pulse Blood pressure Weight 77/minute 122/66 75.8 kg Harish Marshall MD 05/10/2023 12:59 PM Signed [facility] Date of Service: 05/10/2023 Patient: Yamile Rose Medical Record: [id number] Primary Care Physician: Aleksander Jimenez MD Referring [...] was being followed by local rheumatology in [place], but her daughter wanted her to get a 2nd opinion at [facility]. Seen by Dr. Livingston in 05/2018 Her local rheum added methotrexate which she started after her visit here in 05/2018 She was following with sustainability purchasing agent at [place] however her insurance was no more covering the sustainability purchasing agent in [place] so she came back to [facility]. Patient reports pain over MCPs, PIPs, wrists, [...] 1: Christie (more content not included)... Normal [facility] Comprehensive metabolic 2000 panelon 05-10-2023 Albumin [Mass/Vol] 4.0 g/dL 3.9 - 4.9 g/dL [facility] ALP [Catalytic activity/Vol] 70 U/L 34 - 123 U/L [facility] ALT [Catalytic activity/Vol] 12 U/L 7 - 38 U/L [facility] Anion gap [Moles/Vol] 10 mmol/L 9 - 18 mmol/L [facility] AST [Catalytic activity/Vol] 15 U/L 13 - 35 U/L [facility] Bilirubin [Mass/Vol] 0.4 mg/dL 0.2 - 1.3 mg/dL [facility] Calcium [Mass/Vol] 9.3 mg/dL 8.5 - 10. 2 mg/dL [facility] Chloride [Moles/Vol] 104 mmol/L 97 - 105 mmol/L [facility] CO2 [Moles/Vol] 26 mmol/L 22 - 30 mmol/L [facility] Creatinine [Mass/Vol] 0.71 mg/dL 0.58 - 0.96 mg/dL [facility] Estimated Glomerular Filtration Rate 94 mL/min/1.73m >=60 mL/min/1.73m [facility] Glucose [Mass/Vol] 97 mg/dL 74 - 99 mg/dL [facility] Potassium [Moles/Vol] 4.4 mmol/L 3.7 - 5.1 mmol/L [facility] Protein [Mass/Vol] 6.0 g/dL Low 6.3 - 8.0 g/dL [facility] Sodium [Moles/Vol] 140 mmol/L 136 - 144 mmol/L [facility] Urea nitrogen [Mass/Vol] 12 mg/dL 7 - 21 mg/dL [facility] Albumin [Mass/Vol] 4.0 g/dL Normal 3.9-4.9 [facility] Comment on above: Order Comment: Speci men Type: BLOOD SPECIMEN [facility] Address: [address] [address] Performed By: #### 5 7021-8 #### [facility] CLIA [id number] [address] [place] [address] OF [facility] ALP [Catalytic activity/Vol] 70 U/L Normal 34-[address] [facility] Comment on above: Order Comment: Speci men Type: BLOOD SPECIMEN [facility] Address: [address] [place] [address] Performed By: #### 5 7021-8 #### [facility] CLIA [id number] [address] [id number] [place] ALT [Catalytic activity/Vol] 12 U/L Normal 7-[address] [facility] Comment on above: Order Comment: Speci men Type: BLOOD SPECIMEN [facility] Address: [address] Performed By: #### 5 7021-8 #### [facility] CLIA [id number] [address] [place] [address] [place] Anion gap [Moles/Vol] 10 mmol/L Normal 9-18 [facility] Comment on above: Order Comment: Speci men Type: BLOOD SPECIMEN [facility] Address: [address] [place] [address] Performed By: #### 5 7021-8 #### [facility] CLIA [id number] [address] [place] [address] [place] AST [Catalytic activity/Vol] 15 U/L Normal 13-[address] [facility] Comment on above: Order Comment: Speci men Type: BLOOD SPECIMEN [facility] Address: [address] [place], [place] [address] Performed By: #### 5 7021-8 #### [facility] CLIA [id number] [address] [place] [address] [place] Bilirubin [Mass/Vol] 0.4 mg/dL Normal 0.2-1.3 [facility] Comment on above: Order Comment: Speci men Type: BLOOD SPECIMEN [facility] Address: [address] [place], [place] [address] Performed By: #### 5 7021-8 #### [facility] CLIA [id number] [address] [id number] [place] Calcium [Mass/Vol] 9.3 mg/dL Normal 8.5-10.2 [facility] Comment on above: Order Comment: Speci men Type: BLOOD SPECIMEN [facility] Address: [address] Performed By: #### 5 7021-8 #### [facility] CLIA [id number] [address] [place] [address] [place] Chloride [Moles/Vol] 104 mmol/L Normal 97-105 [facility] Comment on above: Order Comment: Speci men Type: BLOOD SPECIMEN [facility] Address: [address] Performed By: #### 5 7021-8 #### [facility] CLIA [id number] [address] [place] [address] [place] CO2 [Moles/Vol] 26 mmol/L Normal 22-[address] [facility] Comment on above: Order Comment: Speci men Type: BLOOD SPECIMEN [facility] Address: [address] Performed By: #### 5 7021-8 #### [facility] CLIA [id number] [address] [place] [address] [place] Creatinine [Mass/Vol] 0.71 mg/dL Normal 0.58-0.96 [facility] Comment on above: Order Comment: Speci men Type: BLOOD SPECIMEN [facility] Address: [address] Performed By: #### 5 7021-8 #### [facility] CLIA [id number] [address] [place] [address] [place] Creatinine and Glomerular filtration rate.predicted panel (S/P/Bld) 94 mL/min/1.73m??? Normal >=[address] [facility] Comment on above: Order Comment: Speci men Type: BLOOD SPECIMEN [facility] Address: [address] Result Comment: Rimma mated Glomerular Filtration Rate [...] accurately reflect actual GFR. Performed By: #### 5 7021-8 #### [facility] [facility] CLIA [id number] [address] [place] [address] [place] Glucose [Mass/Vol] 97 mg/dL Normal 74-99 [facility] Comment on above: Order Comment: Mona gutierrez Type: BLOOD SPECIMEN Ordering Facility: [facility] Address: [address] [place] [address] Result Comment: The [place] Diabetes Association (ADA) provides guidance for cutoff [...] Standards of Medical Care in Diabetes 2016, [place] [employer]. Diabetes Care. 2016.39(Suppl 1). Performed By: #### 5 7021-8 #### [facility] CLIA [id number] [facility] [place] [address] [place] Potassium [Moles/Vol] 4.4 mmol/L Normal 3.7-5.1 [facility] Comment on above: Order Comment: Mona gutierrez Type: BLOOD SPECIMEN Ordering Facility: [facility] Address: [address] [place] [address] Performed By: #### 5 7021-8 #### [facility] CLIA [id number] [address] [place] [address] [place] Protein [Mass/Vol] 6.0 g/dL Low 6.3-8.0 [facility] Comment on above: Order Comment: Speci men Type: BLOOD SPECIMEN Ordering Facility: [facility] Address: [address] [place] [address] Performed By: #### 5 7021-8 #### [facility] CLIA [id number] [address] [place] [address] [place] Sodium [Moles/Vol] 140 mmol/L Normal 136-144 [facility] Comment on above: Order Comment: Speci men Type: BLOOD SPECIMEN Ordering Facility: [facility] Address: [address] [place] [address] Performed By: #### 5 7021-8 #### [facility] CLIA [id number] [address] [place] [address] [place] Urea nitrogen [Mass/Vol] 12 mg/dL Normal 7-[address] [facility] Comment on above: Order Comment: Speci men Type: BLOOD SPECIMEN Ordering Facility: [facility] Address: [address] [place] [address] Performed By: #### 5 7021-8 #### [facility] CLIA [id number] [facility] [place] [address] [place] No Panel Informationon 05-10 [facility] XR THORACIC 3V AP/LAT/SWIMME RSon 05-10-2023 XR [...] Mild diffuse thoracic spondylosis as described above. Counter Professional: MAGDA Transcribe Date/Time: May 10 2023 2:16P Dictated by : KIARRA PARKER MD This examination was interpreted and the report reviewed and electronically signed by: KIARRA PARKER MD on May 10 2023 2:16PM EST [id number] Normal [facility] Office/Clini c Noteon 04-12-2023 Family Medicine Office/Clinic Note HPI Staff Yamile is a 67 year old [...] sores frequently. She had to go to [facility] because she had a challenging time finding insurance to take her insurance. She has Medicare and Medicaid insurance. She went to [facility] and had an x-ray done. 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 Reviewed diabetic eye exam. We will see the patient again back in 6 months or sooner if needed. ATTESTATION: Portions of this record may have been created with voice recognition artificial intelligence software, specifically Estech, [employer] and or Boxer. Substitutions may have occurred due to the inherent limitations of voice recognition and artificial intelligence software Documentation services were performed after patient or guardian consented to allow [employer] to record this visit. SHELDON librarian specialist and provider reviewed before signing. SHELDON: Rosalina Mccloud. 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 Normal [facility] Comment on above: Result Comment: Elec tronically Signed By: Julee De Los Santos MD\.br\Date and Time Signed: 04/12/23 17:39 EDT\.br\Electronically Co-Signed By: Rosalina Mccloud\.br\Date and Time Co-Signed: 04/10/23 17:10 EDT Consultation Noteon 03-08-20 Consultation Note [id number] 0CD:127 Normal [facility] Formson 03-06-2023 Forms [id number] 0CD:127 Normal [facility] ALT SerPl-cCncon 02-08-2023 ALT [Catalytic activity/Vol] 31 U/L Normal 7-[address] [facility] Comment on above: Order Comment: Speci men Type: BLOOD SPECIMEN Ordering Facility: [facility] Address: [address] [place] [address] Performed By: #### 5 7021-8 #### [facility] CLIA [id number] [address] [place] [address] [place] AST SerPl-cCncon 02-08-2023 AST [Catalytic activity/Vol] 24 U/L Normal 13-[address] [facility] Comment on above: Order Comment: Speci men Type: BLOOD SPECIMENOrdering Facility: [facility] Address: [address] [place] [address] Performed By: #### 1 751-7, 1920-8, CRET1, 1742-6 ####[facility] [id number] [place] [address] [place] Albumin SerPl-mCncon 023 Albumin [Mass/Vol] 4.3 g/dL Normal 3.9-4.9 [facility] Comment on above: Order Comment: Speci men Type: BLOOD SPECIMEN Ordering Facility: [facility] Address: [address] [place] [address] Performed By: #### 5 7021-8 #### [facility] CLIA [id number] [address] [place] [address] [place] CBC W Auto Differential pane l (Bld)on 02-08-2023 Basophils (Bld) [#/Vol] 0.09 10*3/uL <0.11 k/uL [facility] Basophils/100 WBC (Bld) 1.3 % [facility] Differential cell count method Nom (Bld) Auto [facility] Eosinophils (Bld) [#/Vol] 0.14 10*3/uL <0.46 k/uL [facility] Eosinophils/100 WBC (Bld) 2.1 % [facility] Erythrocyte distribution width (RBC) [Ratio] 14.0 % 11.5 - 15.0 % [facility] Hematocrit (Bld) [Volume fraction] 44.1 % 36.0 - 46.0 % [facility] Hemoglobin (Bld) [Mass/Vol] 14.3 g/dL 11.5 - 15.5 g/dL [facility] Immature granulocytes (Bld) [#/Vol] <0.10 k/uL [facility] Immature granulocytes/100 WBC (Bld) 0.3 % [facility] Lymphocytes (Bld) [#/Vol] 2.30 10*3/uL 1.00 - 4.00 k/uL [facility] Lymphocytes/100 WBC (Bld) 34.1 % [facility] MCH (RBC) [Entitic mass] 30.5 pg 26.0 - 34.0 pg [facility] MCHC (RBC) [Mass/Vol] 32.4 g/dL 30.5 - 36.0 g/dL [facility] MCV (RBC) [Entitic vol] 94.0 fL 80.0 - 100.0 fL [facility] Monocytes (Bld) [#/Vol] 0.44 10*3/uL <0.87 k/uL [facility] Monocytes/100 WBC (Bld) 6.5 % [facility] Neutrophils (Bld) [#/Vol] 3.75 10*3/uL 1.45 - 7.50 k/uL [facility] Neutrophils/100 WBC (Bld) 55.7 % [facility] Nucleated RBC (Bld) [#/Vol] <0.01 k/uL [facility] Nucleated RBC/100 WBC (Bld) [Ratio] 0.0 /100 WBC [facility] Platelet mean volume (Bld) [Entitic vol] 9.8 fL 9.0 - 12.7 fL [facility] Platelets (Bld) [#/Vol] 222 10*3/uL 150 - 400 k/uL [facility] RBC (Bld) [#/Vol] 4.69 10*6/uL 3.90 - 5.2 0 m/uL [facility] WBC (Bld) [#/Vol] 6.74 10*3/uL 3.70 - 11. 00 k/uL [facility] Basophils (Bld) [#/Vol] 0.09 10*3/uL Normal <0.[address] [facility] Comment on above: Order Comment: Speci men Type: BLOOD SPECIMEN Ordering Facility: [facility] Address: [address] [place] [address] Performed By: #### 5 7053-8 #### [facility] CLIA [id number] [address] [place] [address] [place] Basophils/100 WBC (Bld) 1.3 % Normal [facility] Comment on above: Order Comment: Speci men Type: BLOOD SPECIMEN Ordering Facility: [facility] Address: [address] [place] [address] Performed By: #### 5 7021-8 #### [facility] CLIA [id number] [address] [place] [address] [place] Differential cell count method Nom (Bld) Auto Normal [facility] Comment on above: Order Comment: Speci men Type: BLOOD SPECIMEN Ordering Facility: [facility] Address: [address] [place] [address] Performed By: #### 5 7021-8 #### [facility] CLIA [id number] [address] [place] [address] [place] Eosinophils (Bld) [#/Vol] 0.14 10*3/uL Normal <0.[address] [facility] Comment on above: Order Comment: Speci men Type: BLOOD SPECIMEN Ordering Facility: [facility] Address: [address] [place], [place] [address] Performed By: #### 5 7021-8 #### [facility] CLIA [id number] [address] [place] [address] [place] Eosinophils/100 WBC (Bld) 2.1 % Normal [facility] Comment on above: Order Comment: Speci men Type: BLOOD SPECIMEN Ordering Facility: [facility] Address: [address] [place], [place] [address] Performed By: #### 5 7021-8 #### [facility] CLIA [id number] [address] [place] [address] [place] Erythrocyte distribution width (RBC) [Ratio] 14.0 % Normal 11.5-15.[address] [facility] Comment on above: Order Comment: Speci men Type: BLOOD SPECIMEN Ordering Facility: [facility] Address: [address] Performed By: #### 5 7021-8 #### [facility] CLIA [id number] [address] [place] [address] [place] Hematocrit (Bld) [Volume fraction] 44.1 % Normal 36.0-46.[address] [facility] Comment on above: Order Comment: Speci men Type: BLOOD SPECIMEN Ordering Facility: [facility] Address: [address] Performed By: #### 5 7021-8 #### [facility] CLIA [id number] [address] [place] [address] [place] Hemoglobin (Bld) [Mass/Vol] 14.3 g/dL Normal 11.5-15.[address] [facility] Comment on above: Order Comment: Speci men Type: BLOOD SPECIMEN Ordering Facility: [facility] Address: [address] Performed By: #### 5 7021-8 #### [facility] CLIA [id number] [address] [place] [address] [place] Immature granulocytes (Bld) [#/Vol] 10*3/uL Normal <0.[address] [facility] Comment on above: Order Comment: Speci men Type: BLOOD SPECIMEN Ordering Facility: [facility] Address: [address] [place] [address] Performed By: #### 5 7021-8 #### [facility] CLIA [id number] [address] [place] [address] [place] Immature granulocytes/100 WBC (Bld) 0.3 % Normal [facility] Comment on above: Order Comment: Speci men Type: BLOOD SPECIMEN Ordering Facility: [facility] Address: [address] Performed By: #### 5 7021-8 #### [facility] CLIA [id number] [address] [place] [address] [place] Lymphocytes (Bld) [#/Vol] 2.30 10*3/uL Normal 1.00-4.[address] [facility] Comment on above: Order Comment: Speci men Type: BLOOD SPECIMEN Ordering Facility: [facility] Address: [address] [place] [address] Performed By: #### 5 7021-8 #### [facility] CLIA [id number] [address] [place] [address] [place] Lymphocytes/100 WBC (Bld) 34.1 % Normal [facility] Comment on above: Order Comment: Speci men Type: BLOOD SPECIMEN Ordering Facility: [facility] Address: [address] [place] [address] Performed By: #### 5 7021-8 #### [facility] CLIA [id number] [address] [place] [address] [place] MCH (RBC) [Entitic mass] 30.5 pg Normal 26.0-34.[address] [facility] Comment on above: Order Comment: Speci men Type: BLOOD SPECIMEN Ordering Facility: [facility] Address: [address] [place] [address] Performed By: #### 5 7021-8 #### [facility] CLIA [id number] [address] [place] [address] [place] MCHC (RBC) [Mass/Vol] 32.4 g/dL Normal 30.5-36.0 [facility] Comment on above: Order Comment: Speci men Type: BLOOD SPECIMEN Ordering Facility: [facility] Address: [address] [place], [place] [address] Performed By: #### 5 7021-8 #### [facility] CLIA [id number] [address] [id number] [address] [place] MCV (RBC) [Entitic vol] 94.0 fL Normal 80.0-100.[address] [facility] Comment on above: Order Comment: Speci men Type: BLOOD SPECIMEN Ordering Facility: [facility] Address: [address] [place] [address] Performed By: #### 5 7021-8 #### [facility] CLIA [id number] [address] [place] [address] [place] Monocytes (Bld) [#/Vol] 0.44 10*3/uL Normal <0.[address] [facility] Comment on above: Order Comment: Speci men Type: BLOOD SPECIMEN Ordering Facility: [facility] Address: [address] [place] [address] Performed By: #### 5 7021-8 #### [facility] CLIA [id number] [address] [place] [address] [place] Monocytes/100 WBC (Bld) 6.5 % Normal [facility] Comment on above: Order Comment: Speci men Type: BLOOD SPECIMEN Ordering Facility: [facility] Address: [address] [place], [place] [address] Performed By: #### 5 7021-8 #### [facility] CLIA [id number] [address] [place] [address] [place] Neutrophils (Bld) [#/Vol] 3.75 10*3/uL Normal 1.45-7.[address] [facility] Comment on above: Order Comment: Speci men Type: BLOOD SPECIMEN Ordering Facility: [facility] Address: [address] Performed By: #### 5 7021-8 #### [facility] CLIA [id number] [address] [place] [address] [place] Neutrophils/100 WBC (Bld) 55.7 % Normal [facility] Comment on above: Order Comment: Speci men Type: BLOOD SPECIMEN Ordering Facility: [facility] Address: [address] [place] [address] Performed By: #### 5 7021-8 #### [facility] CLIA [id number] [address] [place] [address] [place] Nucleated RBC (Bld) [#/Vol] 10*3/uL Normal <0.[address] [facility] Comment on above: Order Comment: Speci men Type: BLOOD SPECIMEN Ordering Facility: [facility] Address: [address] [place] [address] Performed By: #### 5 7021-8 #### [facility] CLIA [id number] [address] [place] [address] [place] Nucleated RBC/100 WBC (Bld) [Ratio] 0.0 /[address] [facility] Comment on above: Order Comment: Speci men Type: BLOOD SPECIMEN Ordering Facility: [facility] Address: [address] [place] [address] Performed By: #### 5 7021-8 #### [facility] CLIA [id number] [address] [place] [address] [place] Platelet mean volume (Bld) [Entitic vol] 9.8 fL Normal 9.0-12.[address] [facility] Comment on above: Order Comment: Speci men Type: BLOOD SPECIMEN Ordering Facility: [facility] Address: [address] [place] [address] Performed By: #### 5 7021-8 #### [facility] CLIA [id number] [address] [place] [address] [place] Platelets (Bld) [#/Vol] 222 10*3/uL Normal 150-[address] [facility] Comment on above: Order Comment: Speci men Type: BLOOD SPECIMEN Ordering Facility: [facility] Address: [address] [place] [address] Performed By: #### 5 7021-8 #### [facility] CLIA [id number] [address] [place] [address] [place] RBC (Bld) [#/Vol] 4.69 10*6/uL Normal 3.90-5.20 [facility] Comment on above: Order Comment: Speci men Type: BLOOD SPECIMEN Ordering Facility: [facility] Address: [address] [place] [address] Performed By: #### 5 7021-8 #### [facility] CLIA [id number] [address] [place] [address] [place] WBC (Bld) [#/Vol] 6.74 10*3/uL Normal 3.70-11.00 [facility] Comment on above: Order Comment: Speci men Type: BLOOD SPECIMEN Ordering Facility: [facility] Address: [address] [place] [address] Performed By: #### 5 7021-8 #### [facility] CLIA [id number] [address] [place] [address] OF LOW CNOVon 02-08-2023 CNOV Office Visit (ERWIN ) YAMILE ROSE ([id number]) 1955 F Date Time Provider Department 02/08/23 1:00 PM HARISH MARSHALL During your visit today, we recorded the following information about you: Pulse Blood pressure Weight 66/minute 128/62 78 kg Harish Marshall MD 02/08/2023 1:31 PM Signed [facility] Date of Service: 02/08/2023 Patient: Yamile R Artur Medical Record: [id number] Primary Care Physician: Aleksander Jimenez MD Referring [...] was being followed by local rheumatology in [place], but her daughter wanted her to get a 2nd opinion at [facility]. Seen by Dr. Livingston in 05/2018 Her local rheum added methotrexate which she started after her visit here in 05/2018 She was following with sustainability purchasing agent at [place] however her insurance was no more covering the sustainability purchasing agent in [place] so she came back to [facility]. Patient reports pain over MCPs, PIPs, wrists, [...] Abdominal trav (more content not included)... Normal [facility] CREATININE [facility] 02-08-2023 Creatinine [Mass/Vol] 0.82 mg/dL Normal 0.58-0.96 [facility] Comment on above: Order Comment: Speci men Type: BLOOD SPECIMENOrdering Facility: [facility] Address: [address] [id number] Performed By: #### 1 751-7, 1920-02, CRET1, 1741-12 ####[facility] [id number] [place] [address] [place] ESTIMATED GLOMERULAR FILTRATION RATE 79 mL/min/1.73m??? Normal >=[address] [facility] Comment on above: Order Comment: Speci men Type: BLOOD SPECIMENOrdering Facility: [facility] Address: [address] [id number] Result Comment: Rimma mated Glomerular Filtration Rate [...] accurately reflect actual GFR. Performed By: #### 1 751-7, 1920-02, CRET1, 1741-12 ####[facility] [id number] [place] [address] [place] Outside Diabetes Eye Examon 01-29-2023 Outside Diabetes Eye Exam [id number] 0CD:127 Normal [facility] Auto Diffon 01-10-2023 Basophils/100 WBC (Bld) 1.0 % Normal 0.0-2.0 [facility] Comment on above: Order Comment: Order Added by Discern Expert. Performed By: #### 2 019333, 2246900, 38338900, 2642091, 15930311, 1122189, [id number] #### [facility] [address] [place] [address] Basophils/Leukocytes Auto (Bld) [Pure # fraction] 0.1 E9/L Normal 0.0-0.2 [facility] Comment on above: Order Comment: Order Added by Discern Expert. Performed By: #### 2 356848, 3172483, 26440798, 4864971, 78422907, 8532893, [id number] #### [facility] [address] [place] [address] Eosinophils/100 WBC (Bld) 1.4 % Normal 0.0-8.0 [facility] Comment on above: Order Comment: Order Added by Discern Expert. Performed By: #### 2 358791, 3079679, 48619973, 9584621, 90543849, 6165452, 458861230 #### [facility] [address] [place] [address] Eosinophils/Leukocyte s Auto (Bld) [Pure # fraction] 0.1 E9/L Normal 0.0-0.5 [facility] Comment on above: Order Comment: Order Added by Camilo Expert. Performed By: #### 2 044467, 6196596, 66111056, 0288187, 24042544, 6646394, 337482470 #### [facility] [address] [place] [address] Lymphocytes/100 WBC (Bld) 28.1 % Normal 14.0-50.0 [facility] Comment on above: Order Comment: Order Added by Camilo Expert. Performed By: #### 2 915236, 2597699, 15819678, 4230762, 89591765, 7979358, 480175959 #### [facility] [address] [place] [address] Lymphocytes/Leukocyte s Auto (Bld) [Pure # fraction] 1.7 E9/L Normal 1.0-4.0 [facility] Comment on above: Order Comment: Order Added by Camilo Expert. Performed By: #### 2 593573, 4175614, 11027239, 3049664, 32821966, 6909474, 183032784 #### [facility] [address] [place] [address] Monocytes/100 WBC (Bld) 6.5 % Normal 4.0-14.0 [facility] Comment on above: Order Comment: Order Added by Discern Expert. Performed By: #### 2 149603, 8972010, 38748878, 9124692, 40153054, 9868345, 261434751 #### [facility] [address] [place] [address] Monocytes/Leukocytes Auto (Bld) [Pure # fraction] 0.4 E9/L Normal 0.2-1.0 [facility] Comment on above: Order Comment: Order Added by Discern Expert. Performed By: #### 2 319675, 5178077, 14876508, 8223848, 19901060, 7693044, 294806350 #### [facility] [address] [place] [address] Neutrophils/100 WBC (Bld) 63.0 % Normal 36.0-75.0 [facility] Comment on above: Order Comment: Order Added by Discern Expert. Performed By: #### 2 167386, 3504481, 68018073, 2617809, 76702928, 2936683, 622404487 #### [facility] [address] [place] [address] Neutrophils/Leukocyte s Auto (Bld) [Pure # fraction] 3.8 E9/L Normal 2.0-7.5 [facility] Comment on above: Order Comment: Order Added by Discern Expert. Performed By: #### 2 130189, 9667622, 25948184, 1173221, 20865443, 6773558, 261754255 #### [facility] [address] [place] [address] CBC w/ Auto Diffon 3 Erythrocyte distribution width (RBC) [Ratio] 14.6 % High 10.9-14.2 [facility] Comment on above: Performed By: #### 2 690630, 3227518, 95462217, 4802621, 65616648, 6211583, 771219166 #### [facility] [address] [place] [address] Hematocrit (Bld) [Volume fraction] 43.4 % Normal 34.0-46.0 [facility] Comment on above: Performed By: #### 2 063107, 9428276, 60666009, 1589206, 27931772, 2726825, 842219771 #### [facility] [address] [place] [address] Hemoglobin (Bld) [Mass/Vol] 14.7 g/dL Normal 12.0-16.0 [facility] Comment on above: Performed By: #### 2 567789, 6927962, 60434882, 3465973, 91066429, 7228681, 006672693 #### [facility] [address] [place] [address] MCH (RBC) [Entitic mass] 30.7 pg Normal 27.0-34.0 [facility] Comment on above: Performed By: #### 2 160351, 7364968, 38045122, 3620949, 80810892, 1192497, 153283988 #### [facility] [address] [place] [address] MCHC (RBC) [Mass/Vol] 33.9 g/dL Normal 31.4-36.0 [facility] Comment on above: Performed By: #### 2 930724, 3065720, 12795996, 5189747, 16080641, 0441215, [id number] #### [facility] [address] [place] [address] MCV (RBC) [Entitic vol] 90.6 fL Normal 80.0-100.0 [facility] Comment on above: Performed By: #### 2 586913, 9628083, 32358703, 6698354, 04765105, 0276314, [id number] #### [facility] [address] [place] [address] Platelet mean volume (Bld) [Entitic vol] 8.8 fL Normal 6.4-10.8 [facility] Comment on above: Performed By: #### 2 202216, 1876057, 64000065, 1744008, 88798648, 5843154, 461278145 #### [facility] [address] [place] [address] Platelets (Bld) [#/Vol] 217.0 E9/L Normal 150.0-500.0 [facility] Comment on above: Performed By: #### 2 576404, 0314232, 07863171, 4897458, 68612656, 7467925, 540481142 #### [facility] [address] [place] [address] RBC (Bld) [#/Vol] 4.8 E12/L Normal 4.3-5.9 [facility] Comment on above: Performed By: #### 2 923319, 4783570, 00023200, 4729557, 22881566, 4101188, 517025325 #### [facility] [address] [place] [address] WBC corrected for nucl RBC Auto (Bld) [#/Vol] 6.0 E9/L Normal 4.0-11.0 [facility] Comment on above: Performed By: #### 2 020772, 0519741, 99737760, 0353335, 14286102, 0109893, 049063160 #### [facility] [address] [place] [address] CMPon 01-10-2023 Albumin [Mass/Vol] 4.1 g/dL Normal 3.3-5.0 [facility] Comment on above: Performed By: #### 2 818471, 0968422, 71613633, 4351473, 09502076, 3336842, 156933166 ####[facility] [address] [place] [address] Albumin/Globulin (S) [Mass conc ratio] 1.4 Normal 1.1-2.2 [facility] Comment on above: Performed By: #### 2 802932, 1067911, 83483786, 1111004, 69888935, 9897600, 953594573 ####[facility] [address] [place] [address] ALP [Catalytic activity/Vol] 59 Int._Unit/L Normal 21-98 [facility] Comment on above: Performed By: #### 2 547009, 1057620, 79976255, 3934691, 59592357, 2247632, 985255233 ####[facility] [address] [place] [address] ALT No additional P-5'-P [Catalytic activity/Vol] 25 Int._Unit/L Normal 6-46 [facility] Comment on above: Performed By: #### 2 196641, 9253181, 55828947, 2468781, 19705806, 8509648, 831978136 ####[facility] [address] [place] [address] Anion gap [Moles/Vol] 12 mmol/L Normal 6-16 [facility] Comment on above: Performed By: #### 2 182188, 7311783, 11552343, 3876989, 38227700, 3443822, 889210107 ####[facility] [address] [place] [address] AST [Catalytic activity/Vol] 24 Int._Unit/L Normal 5-43 [facility] Comment on above: Performed By: #### 2 527496, 8468409, 03728093, 9793827, 18011329, 3039289, 078771459 ####[facility] [address] [place] [address] Bilirubin [Mass/Vol] 0.6 mg/dL Normal 0.0-1.1 [facility] Comment on above: Performed By: #### 2 472692, 9121846, 22789942, 1956929, 67139701, 9221136, 439959788 ####[facility] [address] [place] [address] Calcium [Mass/Vol] 9.9 mg/dL Normal 8.9-11.1 [facility] Comment on above: Performed By: #### 2 467642, 6436795, 38849877, 0613978, 41725192, 7449674, 276172659 ####[facility] [address] [place] [address] Chloride [Moles/Vol] 105 mmol/L Normal 101-111 [facility] Comment on above: Performed By: #### 2 833967, 6566972, 96379182, 0371865, 34321469, 1328851, 236927815 ####[facility] [address] [place] [address] CO2 [Moles/Vol] 27 mmol/L Normal 21-31 [facility] Comment on above: Performed By: #### 2 460703, 3699104, 86290374, 6641893, 41718352, 9294775, 059824903 ####[facility] [address] [place] [address] Creatinine [Mass/Vol] 0.8 mg/dL Normal 0.5-1.3 [facility] Comment on above: Performed By: #### 2 590465, 1511879, 01877531, 2641344, 64082226, 1433680, 869194991 ####[facility] [address] [place] [address] Globulin (S) [Mass/Vol] 2.9 g/dL Normal 1.4-4.0 [facility] Comment on above: Performed By: #### 2 336675, 7881435, 61334254, 3799471, 51885340, 4774658, 771425207 ####[facility] [address] [place] [address] Glucose [Mass/Vol] 110 mg/dL Normal 55-199 [facility] Comment on above: Result Comment: If t his glucose result represents a fasting glucose, interpretation should refer to the following reference range: 55-99 mg/dL Performed By: #### 2 715613, 0304288, 65346158, 1439842, 59621888, 4398201, 127712149 ####[facility] [address] [place] [address] Potassium [Moles/Vol] 4.0 mmol/L Normal 3.5-5.3 [facility] Comment on above: Performed By: #### 2 697498, 9249921, 05260273, 5821407, 69960581, 1684223, 153257839 ####[facility] [address] [place] [address] Protein [Mass/Vol] 7.0 g/dL Normal 6.0-7.8 [facility] Comment on above: Performed By: #### 2 822750, 1042085, 43087757, 1264931, 16436604, 0994274, 086629808 ####[facility] [address] [place] [address] Sodium [Moles/Vol] 140 mmol/L Normal 135-145 [facility] Comment on above: Performed By: #### 2 199719, 2077975, 20506239, 6410282, 07723434, 3322973, 742227201 ####[facility] [address] [place] [address] Urea nitrogen [Mass/Vol] 11 mg/dL Normal 5-21 [facility] Comment on above: Performed By: #### 2 390802, 9737710, 64138926, 8856831, 13780174, 1779609, 741835113 ####[facility] [address] [place] [address] Urea nitrogen/Creatinine [Mass ratio] 14 No Units Normal 10-20 [facility] Comment on above: Performed By: #### 2 247710, 2015729, 61872514, 9199246, 38876721, 7661685, 339555826 ####[facility] [address] [place] [address] Family Medicine Office/Clini c Noteon 01-10-2023 Family Medicine Office/Clinic Note Chief Complaint establish care HPI Staff establish care, former Dr Jimenez patient Establish Care: History: DM, hypercholesterolemia, OA, fibromyalgia Last provider: Tony Any recent labs: Her sustainability purchasing agent has done some recently Sees Dr Harish Marshall (sustainability purchasing agent) Health Maintenance UTD: Colonoscopy: 5-6 years Mammogram: [...] osteoarthritis that she follows-up with rheumatology at [facility]. She recently had blood work done, but she needs her A1c checked. She states she has been experiencing increased urinary frequency for a while. She is currently taking Ozempic 0.5 mg and metformin. She has lost 6 pounds. The patient has a history of histoplasmosis. She was following-up with her retina specialist gas cutting machine operator, Dr. Moreno, but he recently retired. She [...] with voice recognition artificial intelligence software, specifically [employer], [employer] and or Boxer. Substitutions may have occurred due to the inherent limitations of voice recognition and artificial intelligence software. ATTESTATION: Documentation services were performed after patient or guardian consented to allow [employer] to record this visit. SHELDON librarian specialist and provider reviewed before signing. SHELDON: [...] Misc DME Prescription, See Instructions semaglutide 2 mg/1.5 mL (0.25 mg or 0.5 mg dose) subcutaneous solution, 0.5 mg, SubCutaneous, qWeek Allergies cefuroxime (Unknown) Social History Tobacco Former smoker, quit more than 30 days ago Tobacco Us (more content not included)... Normal [facility] Comment on above: Result Comment: Elec tronically Signed By: Navjot KAYE, Julee Byers\.br\Date and Time Signed: 01/10/23 11:51 EDT\.br\Electronically Co-Signed By: Zander Cartwright\.br\Date and Time Co-Signed: 01/09/23 18:04 EDT PanA5sjd 01-10-2023 HbA1c (Bld) [Mass fraction] 6.2 % High <=5.9 [facility] Comment on above: Performed By: #### 2 076826, 4766600, 69772830, 2026819, 25610500, 8489986, 851661542 ####[facility] [address] [place] [address] Lipid Panelon 01-10-2023 Cholesterol [Mass/Vol] 199 mg/dL Normal 120-200 [facility] Comment on above: Performed By: #### 2 904182, 4038763, 34004803, 9543221, 03323686, 2278890, 868129748 ####[facility] [address] [place] [address] Cholesterol in HDL [Mass/Vol] 55 mg/dL Invalid Interpretation Code [facility] Comment on above: Result Comment: HDL > or equal to 60 mg/dL: Low cardiovascular risk HDL < 40 mg/dL : High cardiovascular risk Performed By: #### 2 848655, 0491791, 13489528, 2921632, 71199088, 6071320, 600727281 ####[facility] [address] [place] [address] Cholesterol in LDL [Mass/Vol] 106 mg/dL Normal <=129 [facility] Comment on above: Performed By: #### 2 253841, 9898552, 34210203, 8563873, 31250686, 9639227, 120598007 ####[facility] [address] [place] [address] Cholesterol in VLDL [Mass/Vol] 26 mg/dL Normal 7-40 [facility] Comment on above: Performed By: #### 2 239441, 7059827, 44638687, 3636503, 25628281, 3073301, 220891350 ####[facility] [address] [place] [address] Triglyceride [Mass/Vol] 129 mg/dL Normal <=149 [facility] Comment on above: Performed By: #### 2 165693, 8740338, 59093654, 6911751, 70431524, 3525744, 198875824 ####[facility] [address] [place] [address] TSH With T4fr Reflexon 01-10 TSH Qn 0.78 m[IU]/L Normal 0.34-5.60 [facility] Comment on above: Performed By: #### 2 458974, 2850828, 00203209, 6752314, 17988550, 2036956, 477429931 ####[facility] [address] [place] [address] U Microalbon 01-10-2023 Albumin DL <= 20 mg/L (U) [Mass/Vol] mg/dL Normal 0.0-19.0 [facility] Comment on above: Performed By: #### 1 230477615, 97692606 ####[facility] [address] [place] [address] U Protein/Creat Ratioon 12-23 Albumin Elph (U) [Mass fraction] <6.0 Invalid Interpretation Code [facility] Comment on above: Result Comment: The reference range and other method performance specifications have not been established for this test; results should be integrated into the clinical context for interpretation. Performed By: #### 1 [id number], 19626906 ####[facility] [address] [place] [address] Creatinine (U) [Mass/Vol] 55.6 mg/dL Invalid Interpretation Code [facility] Comment on above: Result Comment: The reference range and other method performance specifications have not been established for this test; results should be integrated into the clinical context for interpretation. Performed By: #### 1 [id number], 22586941 ####[facility] [address] [place] [address] U Prot/Creat Ratio [facility] Invalid Interpretation Code .00-200.00 [facility] Comment on above: Performed By: #### 1 [id number], 31077612 ####[facility] [address] [place] [address] eGFRon 01-10-2023 GFR/1.73 sq M.predicted among non-blacks MDRD (S/P/Bld) [Vol rate/Area] 82 mL/min/1.73 m2 Normal >=59 [facility] Comment on above: Order Comment: Order added by Discern Expert. Result Comment: Slat Basket Maker Helper diogo kidney disease could be indicated at eGFR's of less than 60 mL/min/1.73m2. Kidney failure is indicated at less than 15 mL/min/1.73m2. Performed By: #### 2 494246, 5668084, 76359188, 9952761, 99901163, 1008427, 030637382 ####[facility] [address] [place] [address] Ambulatory Visit Summaryon 0 01-09-2023 Ambulatory Visit [...] Santos MD This Is Your Medications List [facility] Prescription ([facility] DME Prescription) atorvastatin (atorvastatin 20 mg Tab) [...] Mouth Every 7 days Unchanged Misc Prescription (Misc DME Prescription) See [...] positive rheumatoid factor Vitamin D deficiency Normal [facility] CBC W Auto Differential pane l (Bld)on 11-09-2022 Basophils (Bld) [#/Vol] 0.08 10*3/uL <0.11 k/uL [facility] Basophils/100 WBC (Bld) 1.3 % [facility] Differential cell count method Nom (Bld) Auto [facility] Eosinophils (Bld) [#/Vol] 0.13 10*3/uL <0.46 k/uL [facility] Eosinophils/100 WBC (Bld) 2.0 % [facility] Erythrocyte distribution width (RBC) [Ratio] 14.5 % 11.5 - 15.0 % [facility] Hematocrit (Bld) [Volume fraction] 46.4 % High 36.0 - 46.0 % [facility] Hemoglobin (Bld) [Mass/Vol] 15.0 g/dL 11.5 - 15.5 g/dL [facility] Immature granulocytes (Bld) [#/Vol] 0.04 10*3/uL <0.10 k/uL [facility] Immature granulocytes/100 WBC (Bld) 0.6 % [facility] Lymphocytes (Bld) [#/Vol] 1.94 10*3/uL 1.00 - 4.00 k/uL [facility] Lymphocytes/100 WBC (Bld) 30.4 % [facility] MCH (RBC) [Entitic mass] 30.4 pg 26.0 - 34.0 pg [facility] MCHC (RBC) [Mass/Vol] 32.3 g/dL 30.5 - 36.0 g/dL [facility] MCV (RBC) [Entitic vol] 93.9 fL 80.0 - 100.0 fL [facility] Monocytes (Bld) [#/Vol] 0.46 10*3/uL <0.87 k/uL [facility] Monocytes/100 WBC (Bld) 7.2 % [facility] Neutrophils (Bld) [#/Vol] 3.73 10*3/uL 1.45 - 7.50 k/uL [facility] Neutrophils/100 WBC (Bld) 58.5 % [facility] Nucleated RBC (Bld) [#/Vol] <0.01 k/uL [facility] Nucleated RBC/100 WBC (Bld) [Ratio] 0.0 /100 WBC [facility] Platelet mean volume (Bld) [Entitic vol] 10.0 fL 9.0 - 12.7 fL [facility] Platelets (Bld) [#/Vol] 231 10*3/uL 150 - 400 k/uL [facility] RBC (Bld) [#/Vol] 4.94 10*6/uL 3.90 - 5.2 0 m/uL [facility] WBC (Bld) [#/Vol] 6.38 10*3/uL 3.70 - 11. 00 k/uL [facility] ESR Westergren method (Bld) [Velocity]on 11-09-2022 ESR (Bld) [Velocity] 6 mm/h 0 - 20 mm/hr [facility] MG MAMM SCREEN 3D KATE CADon 09-13-2022 MG MAMM SCREEN 3D KATE CAD Patient: YAMILE ROSE Exam Date: 09/13/2022 : 1955 Gender:F Ordering : DR ALEKSANDER JIMENEZ . Admission #: [id number] Family : Order #: [id number] CLICK HERE TO VIEW EXAM RADIOLOGY REPORT PROCEDURE: MAMMOGRAM SCREENING 3D BILATERAL CAD COMPARISON: MG MAMM SCREEN KATE W CAD, 09/25/2020. MG MAMM KATE SCRN W CAD DIG, 10/14/2013. MG MAMM KATE SCRN W CAD DIG, 11/12/2009. MG MAMM KATE SCRN W CAD DIG, 10/09/2002. INDICATIONS: Screening mammography Calculator Name NCI Breast Cancer Risk Assessment Tool 5 Year Breast Cancer Risk 0.80% Lifetime Breast Cancer Risk 3.10% Personal Breast Cancer No Personal Ovarian Cancer No Treatments None Family Cancers Mother with bladder cancer at age 57; Father with liver cancer at age 77. LOCATION: [facility] BREAST COMPOSITION: Scattered areas fibroglandular density. FINDINGS: [...] M.D. on 09/15/2022 at 12:13 Normal [facility] Glucose Glucometer (BldC) [M ass/Vol]Ordered By: Balwinder Hankins on 07-07-2022 Glucose [Mass/Vol] 117 mg/dL [facility] Comment on above: Random Glucose Refer ence Range is dependent on time and content of last meal. Glucose of more than 200 mg/dL in a nonstressed, ambulatory subject supports the diagnosis of Diabetes Mellitus. Glucose Poct Glucometerson 1 09-07-2021 Commemt1 Glu2: Cleaned Meter Normal [facility] Comment on above: Result Comment: PERF ORMED BY: [facility] [address] [place] [address] PATHOLOGIST REAMING MACHINE OPERATOR SAM ADAME M.D. Performed By: #### G LUJAYSON #### Point of Care testing , Glucose [Mass/Vol] 117 mg/dL Normal [facility] Comment on above: Result Comment: [place] Glucose Reference Range is dependent on time and content of last meal. Glucose of more than 200 mg/dL in a nonstressed, ambulatory subject supports the diagnosis of Diabetes Mellitus. Performed By: #### G RUFINALS #### Point of Care testing , No Panel InformationOrdered By: Balwinder Hankins on 07-07-2022 Bedside Glucose Comment Glu2: cleaned meter [facility] CBC AUTO DIFFon 07-05-2022 BASO # 0.1 103/ul Normal 0.0-0.1 [facility] Comment on above: Performed By: #### C BC #### [facility] [address] [address] [address] Ruthie Richard Basophils/100 WBC (Bld) 0.8 % Normal 0.2-2.0 [facility] Comment on above: Performed By: #### C BC #### [facility] [address] [address] [address] Ruthie Richard EO # 0.1 103/ul Normal 0.0-0.7 [facility] Comment on above: Performed By: #### C BC #### [facility] [address] [address] [address] Ruthie Richard Eosinophils/100 WBC (Bld) 1.4 % Normal 0.9-7.0 [facility] Comment on above: Performed By: #### C BC #### [facility] [address] [address] [address] Ruthie Richard Erythrocyte distribution width (RBC) [Ratio] 13.8 % Normal 11.0-15.0 [facility] Comment on above: Performed By: #### C BC #### [facility] [address] [address] [address] Ruthie Richard Hematocrit (Bld) [Volume fraction] 44.5 % Normal 36.0-48.0 [facility] Comment on above: Performed By: #### C BC #### [facility] [address] [place] [address] Dr. Ruthie Richard Hemoglobin (Bld) [Mass/Vol] 15.0 g/dL Normal 12.0-16.0 [facility] Comment on above: Performed By: #### C BC #### [facility] [address] [place] [address] Dr. Ruthie Richard IG # 0.01 10e3/ul Normal 0.00-0.03 [facility] Comment on above: Performed By: #### C BC #### [facility] [address] [place] [address] Dr. Ruthie Richard IG % 0.1 % Normal 0.0-0.5 [facility] Comment on above: Performed By: #### C BC #### [facility] [address] [place] [address] Dr. Ruthie Richard LYMPH # 2.0 103/ul Normal 1.2-3.8 [facility] Comment on above: Performed By: #### C BC #### [facility] [address] [place] [address] Dr. Ruthie Richard Lymphocytes/100 WBC (Bld) 27.4 % Normal 20.5-60.0 [facility] Comment on above: Performed By: #### C BC #### [facility] [address] [place] [address] Dr. Ruthie Richard MANUAL DIFF REQ NO Normal [facility] Comment on above: Performed By: #### C BC #### [facility] [address] [place] [address] Dr. Ruthie Richard MCH (RBC) [Entitic mass] 29.6 pg Normal 26.7-34.0 [facility] Comment on above: Performed By: #### C BC #### [facility] [address] [place] [address] Dr. Ruthie Richard MCHC (RBC) [Mass/Vol] 33.7 g/dL Normal 29.9-35.2 [facility] Comment on above: Performed By: #### C BC #### [facility] [address] [place] [address] Dr. Ruthie Richard MCV (RBC) [Entitic vol] 87.9 fL Normal 81.0-99.0 [facility] Comment on above: Performed By: #### C BC #### [facility] [address] [place] [address] Dr. Ruthie Richard MONO # 0.5 103/ul Normal 0.3-0.8 [facility] Comment on above: Performed By: #### C BC #### [facility] [address] [place] [address] Dr. Ruthie Richard Monocytes/100 WBC (Bld) 6.4 % Normal 1.7-12.0 [facility] Comment on above: Performed By: #### C BC #### [facility] [address] [place] [address] Dr. Ruthie Richard NEUT # 4.7 103/ul Normal 1.4-6.5 [facility] Comment on above: Performed By: #### C BC #### [facility] [address] [place] [address] Dr. Ruthie Richard Neutrophils/100 WBC (Bld) 63.9 % Normal 43.0-75.0 [facility] Comment on above: Performed By: #### C BC #### [facility] [address] [place] [address] Dr. Ruthie Richard Platelet mean volume (Bld) [Entitic vol] 9.1 fL Critically low 9.5-13.5 [facility] Comment on above: Performed By: #### C BC #### [facility] [address] [place] [address] Dr. Ruthie Richard PLT 220 103/ul Normal 150-450 [facility] Comment on above: Performed By: #### C BC #### [facility] [address] [place] [address] Dr. Ruthie Richard RBC 5.06 106/ul Normal 4.20-5.40 [facility] Comment on above: Performed By: #### C BC #### [facility] [address] [place] [address] Dr. Ruthie Richard WBC 7.3 103/ul Normal 4.0-11.0 [facility] Comment on above: Performed By: #### C BC #### [facility] [address] [address] [address] Ruthie Richard GLYCOHEMOGLOBIN A1Con 2021 ADA RECOMMENDATION SEE BELOW Normal [facility] Comment on above: Result Comment: ADA RECOMMENDED LIMIT 4.0 - 6.0 ADA THERAPEUTIC TARGET < 7.0 ACTION SUGGESTED > 7.0 Performed By: #### A 1C #### [facility] [address] [place] [address] Dr. Ruthie Richard Glucose [Mass/Vol] 143 mg/dL Normal [facility] Comment on above: Performed By: #### A 1C #### [facility] [address] [place] [address] Dr. Ruthie Richard HbA1c (Bld) [Mass fraction] 6.6 % Critically high 4.5-6.2 [facility] Comment on above: Performed By: #### A 1C #### [facility] [address] [place] [address] Dr. Ruthie Richard LIPID PROFILEon 07-05-2022 CHOL-HDL RATIO NORM SEE BELOW Normal [facility] Comment on above: Result Comment: 3.3 - 4.4 LOW RISK 4.4 - 7.1 AVERAGE RISK 7.1 - 11.0 MODERATE RISK >11.0 HIGH RISK Performed By: #### L IPID, CMP #### [facility] [address] [place] [address] Dr. Ruthie Richard Cholesterol [Mass/Vol] 160 mg/dL Normal <=200 [facility] Comment on above: Performed By: #### L IPID, CMP #### [facility] [address] [place] [address] Dr. Ruthie Richard Cholesterol in HDL [Mass/Vol] 52 mg/dL Normal 40-60 [facility] Comment on above: Performed By: #### L IPID, CMP #### [facility] [address] [place] [address] Dr. Ruthie Richard Cholesterol in LDL [Mass/Vol] 87.0 mg/dL Normal [facility] Comment on above: Performed By: #### L IPID, CMP #### [facility] [address] [place] [address] Dr. Ruthie Richard Cholesterol.total/Cho lesterol in HDL [Mass ratio] 3.1 {ratio} Normal [facility] Comment on above: Performed By: #### L IPID, CMP #### [facility] [address] [place] [address] Dr. Ruthie Richard HDL NORMAL > or = 60 mg/dl - LO W CARDIOVASCULAR RISK <40 mg/dl - HIGH CARDIOVASCULAR RISK Normal [facility] Comment on above: Performed By: #### L IPID, CMP #### [facility] [address] [place] [address] Dr. Ruthie Richard LDL CALC NORMAL SEE BELOW Normal [facility] Comment on above: Result Comment: <100 mg/dl OPTIMAL 100 - 129 mg/dl NEAR OR ABOVE OPTIMAL 130 - 159 mg/dl BORDERLINE HIGH 160 - 189 mg/dl HIGH >190 mg/dl VERY HIGH Performed By: #### L IPID, CMP #### [facility] [address] [place] [address] Dr. Ruthie Richard Triglyceride [Mass/Vol] 105 mg/dL Normal <=150 [facility] Comment on above: Performed By: #### L IPID, CMP #### [facility] [address] [place] [address] Dr. Ruthie Richard VLDL CALC 21.0 mg/dL Normal [facility] Comment on above: Performed By: #### L IPID, CMP #### [facility] [address] [place] [address] Dr. Ruthie Richard MICROALBUMIN, RAND URon 06-23 mALB <1.3 Normal <=30.0 [facility] Comment on above: Performed By: #### M ALBR #### [facility] [address] [place] [address] Dr. Ruthie Richard PROF 14(COMP METB)on 022 Albumin [Mass/Vol] 3.6 g/dL Normal 3.4-5.0 [facility] Comment on above: Performed By: #### L IPID, CMP ####[facility] [address] [place] [id number]. Ruthie Richard Albumin/Globulin [Mass ratio] 1.1 {ratio} Normal [facility] Comment on above: Performed By: #### L IPID, CMP ####[facility] [address] [place] [address]Dr. Ruthie Richard ALP [Catalytic activity/Vol] 87 U/L Normal 46-116 [facility] Comment on above: Performed By: #### L IPID, CMP ####[facility] [address]ytebd[address] [place] [id number]. Lindacristy Richard ALT [Catalytic activity/Vol] 16 U/L Normal 14-59 [facility] Comment on above: Performed By: #### L IPID, CMP ####[facility] [address] [place], [place] [address]Dr. Ruthie Richard Anion gap [Moles/Vol] 11.0 mmol/L Normal [facility] Comment on above: Performed By: #### L IPID, CMP ####[facility] [address] [place], [place] [address]Dr. Ruthie Richard AST [Catalytic activity/Vol] 14 U/L Critically low 15-37 [facility] Comment on above: Performed By: #### L IPID, CMP ####[facility] [address] [place] [address]Dr. Ruthie Richard Bilirubin [Mass/Vol] 0.6 mg/dL Normal 0.2-1.0 [facility] Comment on above: Performed By: #### L IPID, CMP ####[facility] [address] [place] [address]Dr. Ruthie Richard Calcium [Mass/Vol] 9.6 mg/dL Normal 8.5-10.1 [facility] Comment on above: Performed By: #### L IPID, CMP ####[facility] [address]uzeq[address] [place], [place] [address]Dr. Ruthie Richard Chloride [Moles/Vol] 102 mmol/L Normal 98-107 [facility] Comment on above: Performed By: #### L IPID, CMP ####[facility] [address] [place] [address]Dr. Ruthie Richard CO2 [Moles/Vol] 27.5 mmol/L Normal 21.0-32.0 [facility] Comment on above: Performed By: #### L IPID, CMP ####[facility] [address] [place] [address]Dr. Ruthie Richard Creatinine [Mass/Vol] 0.77 mg/dL Normal 0.55-1.02 [facility] Comment on above: Performed By: #### L IPID, CMP ####[facility] Sabvpks[address] [place], [place] [address]Dr. Ruthie Richard EGFR-AF NAURUAN >60 Normal >=60 [facility] Comment on above: Performed By: #### L IPID, CMP ####[facility] Qlnktcjate[address] [place], [place] [address]Dr. Ruthie Richard EGFR-NON AF NAURUAN >60 Normal >=60 [facility] Comment on above: Performed By: #### L IPID, CMP ####[facility] Srboqycsbd[address] [place], [place] [address]Dr. Ruthie Richard Globulin (S) [Mass/Vol] 3.4 g/dL Normal [facility] Comment on above: Performed By: #### L IPID, CMP ####[facility] [address]vl[address]ohr[address] [place], [place] [address]Dr. Ruthie Richard Glucose [Mass/Vol] 102 mg/dL Normal 74-106 [facility] Comment on above: Performed By: #### L IPID, CMP ####[facility] [address] [place], [place] [address]Dr. Ruthie Richard Potassium [Moles/Vol] 4.5 mmol/L Normal 3.5-5.1 [facility] Comment on above: Performed By: #### L IPID, CMP ####[facility] [address]ib[address] [place], [place] [address]Dr. Ruthie Richard Protein [Mass/Vol] 7.0 g/dL Normal 6.4-8.2 [facility] Comment on above: Performed By: #### L IPID, CMP ####[facility] [address] [place] [address]Dr. Ruthie Richard Sodium [Moles/Vol] 136 mmol/L Normal 136-145 [facility] Comment on above: Performed By: #### L IPID, CMP ####[facility] [address]olkutp[address] [place], [place] [address]Dr. Ruthie Richard Urea nitrogen [Mass/Vol] 10.0 mg/dL Normal 7.0-18.0 [facility] Comment on above: Performed By: #### L IPID, CMP ####[facility] [address]pf[address] [place], [place] [address]Dr. Ruthie Jose Manuel Urea nitrogen/Creatinine [Mass ratio] 13.0 mg/mg Normal [facility] Comment on above: Performed By: #### L IPID, CMP ####[facility] [address]vtzcz[address] [place], [place] [address]Dr. Ruthie Jose Manuel CBC AUTO DIFFon 02-16-2022 BASO # 0.1 103/ul Normal 0.0-0.1 [facility] Comment on above: Performed By: #### C BC ####[facility] [address] [place], [place] [address]Dr. Ruthie Jose Manuel Basophils/100 WBC (Bld) 1.2 % Normal 0.2-2.0 [facility] Comment on above: Performed By: #### C BC ####[facility] [address] [place], [place] [address]Dr. Ruthie Richard EO # 0.1 103/ul Normal 0.0-0.7 [facility] Comment on above: Performed By: #### C BC ####[facility] [address]fw[address] [place], [place] [address]Dr. Ruthie Jose Manuel Eosinophils/100 WBC (Bld) 2.1 % Normal 0.9-7.0 [facility] Comment on above: Performed By: #### C BC ####[facility] [address]ocr[address]iwkb[address] [place], [place] [address]Dr. Ruthie Jose Manuel Erythrocyte distribution width (RBC) [Ratio] 13.9 % Normal 11.0-15.0 [facility] Comment on above: Performed By: #### C BC ####[facility] [address]osp[address]qvcv[address] [place] [address]DrMayra Richard Hematocrit (Bld) [Volume fraction] 45.6 % Normal 36.0-48.0 [facility] Comment on above: Performed By: #### C BC ####[facility] [address] [place], [place] [address]DrMayra Richard Hemoglobin (Bld) [Mass/Vol] 14.8 g/dL Normal 12.0-16.0 [facility] Comment on above: Performed By: #### C BC ####[facility] [address] [place], [place] [address]DrMayra Richard IG # 0.01 10e3/ul Normal 0.00-0.03 [facility] Comment on above: Performed By: #### C BC ####[facility] [address] [place], [place] [address]DrMayra Richard IG % 0.2 % Normal 0.0-0.5 [facility] Comment on above: Performed By: #### C BC ####[facility] [address] [place], [place] [address]DrMayra Richard LYMPH # 1.6 103/ul Normal 1.2-3.8 [facility] Comment on above: Performed By: #### C BC ####[facility] [address]efsa[address] [place], [place] [address]DrMayra Richard Lymphocytes/100 WBC (Bld) 27.1 % Normal 20.5-60.0 [facility] Comment on above: Performed By: #### C BC ####[facility] [address] [place], [place] [address]DrMayra Richard MANUAL DIFF REQ NO Normal [facility] Comment on above: Performed By: #### C BC ####[facility] [address] [place], [place] [address]DrMayra Richard MCH (RBC) [Entitic mass] 29.6 pg Normal 26.7-34.0 [facility] Comment on above: Performed By: #### C BC ####[facility] [address] [place] [address]Dr. Ruthie Richard MCHC (RBC) [Mass/Vol] 32.5 g/dL Normal 29.9-35.2 [facility] Comment on above: Performed By: #### C BC ####[facility] [address] [place] [address]DrMayra Richard MCV (RBC) [Entitic vol] 91.2 fL Normal 81.0-99.0 [facility] Comment on above: Performed By: #### C BC ####[facility] [address] [place], [place] [address]DrMayra Richard MONO # 0.4 103/ul Normal 0.3-0.8 [facility] Comment on above: Performed By: #### C BC ####[facility] S[address] [place], [place] [address]Dr. Ruthie Richard Monocytes/100 WBC (Bld) 7.3 % Normal 1.7-12.0 [facility] Comment on above: Performed By: #### C BC ####[facility] [address] [place], [place] [address]DrMayra Richard NEUT # 3.6 103/ul Normal 1.4-6.5 [facility] Comment on above: Performed By: #### C BC ####[facility] [address]yluvcb[address] [place], [place] [address]Dr. Ruthie Richard Neutrophils/100 WBC (Bld) 62.1 % Normal 43.0-75.0 [facility] Comment on above: Performed By: #### C BC ####[facility] [address] [place], [place] [address]DrMyara Richard Platelet mean volume (Bld) [Entitic vol] 9.4 fL Critically low 9.5-13.5 [facility] Comment on above: Performed By: #### C BC ####[facility] [address] [place], [place] [address]Dr. Ruthie Richard PLT 227 103/ul Normal 150-450 [facility] Comment on above: Performed By: #### C BC ####[facility] [address] [place] [address]Dr. Lindacristy Jose Manuel RBC 5.00 106/ul Normal 4.20-5.40 [facility] Comment on above: Performed By: #### C BC ####[facility] [address]xr[address] [place] [address]Dr. Ruthie Richard WBC 5.8 103/ul Normal 4.0-11.0 [facility] Comment on above: Performed By: #### C BC ####[facility] [address] [place] [address]DrMayra Richard PROF 14(COMP METB)on 022 Albumin [Mass/Vol] 3.7 g/dL Normal 3.4-5.0 [facility] Comment on above: Performed By: #### C MP ####[facility] [address] [place] [address]Dr. Ruthie Richard Albumin/Globulin [Mass ratio] 1.2 {ratio} Normal [facility] Comment on above: Performed By: #### C MP ####[facility] [address] [place] [address]Dr. Ruthie Richard ALP [Catalytic activity/Vol] 81 U/L Normal 46-116 [facility] Comment on above: Performed By: #### C MP ####[facility] [address] [place] [address]Dr. Ruthie Richard ALT [Catalytic activity/Vol] 31 U/L Normal 14-59 [facility] Comment on above: Performed By: #### C MP ####[facility] [address]xvqlal[address] [place] [address]Dr. Ruthie Richard Anion gap [Moles/Vol] 11.5 mmol/L Normal [facility] Comment on above: Performed By: #### C MP ####[facility] [address]ud[address]pb[address] [place] [address]Dr. Ruthie Richard AST [Catalytic activity/Vol] 18 U/L Normal 15-37 [facility] Comment on above: Performed By: #### C MP ####[facility] [address] [place] [address]Dr. Ruthie Richard Bilirubin [Mass/Vol] 0.5 mg/dL Normal 0.2-1.0 [facility] Comment on above: Performed By: #### C MP ####[facility] [address] [place] [address]Dr. Ruthie Richard Calcium [Mass/Vol] 9.3 mg/dL Normal 8.5-10.1 [facility] Comment on above: Performed By: #### C MP ####[facility] [address] [place] [address]Dr. Ruthie Richard Chloride [Moles/Vol] 106 mmol/L Normal 98-107 [facility] Comment on above: Performed By: #### C MP ####[facility] [address] [place], [place] [address]Dr. Ruthie Richard CO2 [Moles/Vol] 29.8 mmol/L Normal 21.0-32.0 [facility] Comment on above: Performed By: #### C MP ####[facility] [address] [place], [place] [address]Dr. Ruthie Richard Creatinine [Mass/Vol] 0.76 mg/dL Normal 0.55-1.02 [facility] Comment on above: Performed By: #### C MP ####[facility] [address]ch[address] [place], [place] [address]Dr. Ruthie Richard EGFR-AF NAURUAN >60 Normal >=60 [facility] Comment on above: Performed By: #### C MP ####[facility] [address]xphxl[address] [place], [place] [address]Dr. Ruthie Richard EGFR-NON AF NAURUAN >60 Normal >=60 [facility] Comment on above: Performed By: #### C MP ####[facility] [address]ls[address] [place] [address]Dr. Ruthie Richard Globulin (S) [Mass/Vol] 3.2 g/dL Normal [facility] Comment on above: Performed By: #### C MP ####[facility] [address]qesfzn[address] [place] [address]Dr. Ruthie Richard Glucose [Mass/Vol] 135 mg/dL Critically high 74-106 [facility] Comment on above: Performed By: #### C MP ####[facility] [address]vpoz[address] [place] [address]Dr. Ruthie Richard Potassium [Moles/Vol] 5.3 mmol/L Critically high 3.5-5.1 [facility] Comment on above: Performed By: #### C MP ####[facility] [address]ys[address]ks[address]op[address] [place] [address]Dr. Ruthie Richard Protein [Mass/Vol] 6.9 g/dL Normal 6.4-8.2 [facility] Comment on above: Performed By: #### C MP ####[facility] [address]rthewmt[address] [place] [address]Dr. Ruthie Richard Sodium [Moles/Vol] 142 mmol/L Normal 136-145 [facility] Comment on above: Performed By: #### C MP ####[facility] [address]ik[address] [place] [address]Dr. Ruthie Richard Urea nitrogen [Mass/Vol] 13.0 mg/dL Normal 7.0-18.0 [facility] Comment on above: Performed By: #### C MP ####[facility] [address]umtcar[address] [place] [address]Dr. Ruthie Richard Urea nitrogen/Creatinine [Mass ratio] 17.1 mg/mg Normal [facility] Comment on above: Performed By: #### C MP ####[facility] [address]ew[address]rwfi[address] [place] [address]Dr. Ruthie Richard SED RATE WESTERGRENon 2021 SED RATE 14 mm/hr Normal <=30 [facility] Comment on above: Performed By: #### S EDR ####[facility] [address]ejek[address] [place] [address]Dr. Ruthie Richard GLYCOHEMOGLOBIN A1Con 2021 ADA RECOMMENDATION SEE BELOW Normal [facility] Comment on above: Result Comment: ADA RECOMMENDED LIMIT 4.0 - 6.0 ADA THERAPEUTIC TARGET < 7.0 ACTION SUGGESTED > 7.0 Performed By: #### A 1C #### [facility] [address] [place] [address] Dr. Ruthie Richard Glucose [Mass/Vol] 203 mg/dL Normal [facility] Comment on above: Performed By: #### A 1C #### [facility] [address] [place] [address] Dr. Ruthie Richard HbA1c (Bld) [Mass fraction] 8.7 % Critically high 4.5-6.2 [facility] Comment on above: Performed By: #### A 1C #### [facility] [address] [place] [address] Dr. Ruthie Richard PROF CHEM 8 (BAS METB)on Anion gap [Moles/Vol] 11.2 mmol/L Normal [facility] Comment on above: Performed By: #### B MP #### [facility] [address] [place] [address] Dr. Ruthie Richard Calcium [Mass/Vol] 8.8 mg/dL Normal 8.5-10.1 [facility] Comment on above: Performed By: #### B MP #### [facility] [address] [place] [address] Dr. Ruthie Richard Chloride [Moles/Vol] 105 mmol/L Normal 98-107 [facility] Comment on above: Performed By: #### B MP #### [facility] [address] [place] [address] Dr. Ruthie Richard CO2 [Moles/Vol] 29.6 mmol/L Normal 21.0-32.0 [facility] Comment on above: Performed By: #### B MP #### [facility] [address] [place] [address] Dr. Ruthie Richard Creatinine [Mass/Vol] 0.82 mg/dL Normal 0.55-1.02 [facility] Comment on above: Performed By: #### B MP #### [facility] [address] [place] [address] Dr. Ruthie Richard EGFR-AF NAURUAN >60 Normal >=60 [facility] Comment on above: Performed By: #### B MP #### [facility] [address] [place] [address] [address] Ruthie Richard EGFR-NON AF NAURUAN >60 Normal >=60 [facility] Comment on above: Performed By: #### B MP #### [facility] [address] [place] [address] [address] Ruthie Ricahrd Glucose [Mass/Vol] 198 mg/dL Critically high 74-106 [facility] Comment on above: Performed By: #### B MP #### [facility] [address] [place] [address] [address] Ruthie Richard Potassium [Moles/Vol] 3.8 mmol/L Normal 3.5-5.1 [facility] Comment on above: Performed By: #### B MP #### [facility] [address] [place] [address] [address] Ruthie Richard Sodium [Moles/Vol] 142 mmol/L Normal 136-145 [facility] Comment on above: Performed By: #### B MP #### [facility] [address] [place] [address] [address] Ruthie Richard Urea nitrogen [Mass/Vol] 9.0 mg/dL Normal 7.0-18.0 [facility] Comment on above: Performed By: #### B MP #### [facility] [address] [place] [address] [address] Ruthie Richard Urea nitrogen/Creatinine [Mass ratio] 11.0 mg/mg Normal [facility] Comment on above: Performed By: #### B MP #### [facility] [address] [place] [address] [address] Ruthie Richard CBC AUTO DIFFon 11-06-2021 BASO # 0.1 103/ul Normal 0.0-0.1 [facility] Comment on above: Performed By: #### C BC ####[facility] [address] [place] [address]Dr. Ruthie Richard Basophils/100 WBC (Bld) 0.6 % Normal 0.2-2.0 [facility] Comment on above: Performed By: #### C BC ####[facility] [address]qizczztk[address] [place] [id number]. Ruthie Richard EO # 0.2 103/ul Normal 0.0-0.7 [facility] Comment on above: Performed By: #### C BC ####[facility] [address]sc[address]irhc[address] [place] [address]Dr. Ruthie Richard Eosinophils/100 WBC (Bld) 1.4 % Normal 0.9-7.0 [facility] Comment on above: Performed By: #### C BC ####[facility] [address] [place], [place] [address]Dr. Ruthie Richard Erythrocyte distribution width (RBC) [Ratio] 13.7 % Normal 11.0-15.0 [facility] Comment on above: Performed By: #### C BC ####[facility] [address] [place], [place] [address]Dr. Ruthie Richard Hematocrit (Bld) [Volume fraction] 45.3 % Normal 36.0-48.0 [facility] Comment on above: Performed By: #### C BC ####[facility] [address]ec[address] [place], [place] [address]Dr. Ruthie Richard Hemoglobin (Bld) [Mass/Vol] 15.0 g/dL Normal 12.0-16.0 [facility] Comment on above: Performed By: #### C BC ####[facility] [address] [place], [place] [address]Dr. Ruthie Richard IG # 0.14 10e3/ul Critically high 0.00-0.03 [facility] Comment on above: Performed By: #### C BC ####[facility] [address] [place], [place] [address]Dr. Ruthie Richard IG % 1.3 % Critically high 0.0-0.5 [facility] Comment on above: Performed By: #### C BC ####[facility] [address] [place], [place] [address]Dr. Lindacristy Richard LYMPH # 3.0 103/ul Normal 1.2-3.8 [facility] Comment on above: Performed By: #### C BC ####[facility] [address]nbx[address] [place] [address]Dr. Lindacristy Richard Lymphocytes/100 WBC (Bld) 26.4 % Normal 20.5-60.0 [facility] Comment on above: Performed By: #### C BC ####[facility] [address]zf[address] [place] [address]Dr. Ruthie Richard MANUAL DIFF REQ NO Normal [facility] Comment on above: Performed By: #### C BC ####[facility] [address]mpbpj59[address] [place] [address]Dr. Ruthie Richard MCH (RBC) [Entitic mass] 29.6 pg Normal 26.7-34.0 [facility] Comment on above: Performed By: #### C BC ####[facility] [address] [place] [address]Dr. Ruthie Richard MCHC (RBC) [Mass/Vol] 33.1 g/dL Normal 29.9-35.2 [facility] Comment on above: Performed By: #### C BC ####[facility] [address]rmx[address] [place] [address]Dr. Ruthie Richard MCV (RBC) [Entitic vol] 89.5 fL Normal 81.0-99.0 [facility] Comment on above: Performed By: #### C BC ####[facility] [address] [place], [place] [address]Dr. Ruthie Richard MONO # 0.9 103/ul Critically high 0.3-0.8 [facility] Comment on above: Performed By: #### C BC ####[facility] [address]xywrhrywb[address] [place] [address]Dr. Ruthie Richard Monocytes/100 WBC (Bld) 7.6 % Normal 1.7-12.0 [facility] Comment on above: Performed By: #### C BC ####[facility] [address] [place], [place] [address]Dr. Ruthie Richard NEUT # 7.0 103/ul Critically high 1.4-6.5 [facility] Comment on above: Performed By: #### C BC ####[facility] Qwtcczgcre[address] [place] [address]Dr. Ruthie Richard Neutrophils/100 WBC (Bld) 62.7 % Normal 43.0-75.0 [facility] Comment on above: Performed By: #### C BC ####[facility] [address]st[address] [place] [address]Dr. Ruthie Richard Platelet mean volume (Bld) [Entitic vol] 9.8 fL Normal 9.5-13.5 [facility] Comment on above: Performed By: #### C BC ####[facility] [address] [place] [address]Dr. Ruthie Richard PLT 268 103/ul Normal 150-450 [facility] Comment on above: Performed By: #### C BC ####[facility] [id number] [place] [id number]. Ruthie Richard RBC 5.06 106/ul Normal 4.20-5.40 [facility] Comment on above: Performed By: #### C BC ####[facility] [id number] [place], [place] [address]Fe. Ruthie Richard WBC 11.2 103/ul Critically high 4.0-11.0 [facility] Comment on above: Performed By: #### C BC ####[facility] [id number] [place] [id number]. Ruthie Richard D-DIMERon 11-06-2021 D-DIMER 0.32 mg/L FEU Normal 0.19-0.50 [facility] Comment on above: Performed By: #### D DIM #### [facility] [address] [place], [place] [address] Dr. Ruthie Richard D-DIMER COMMENTS SEE BELOW Normal [facility] Comment on above: Result Comment: Incr eases [...] hospitalization. Performed By: #### D DIM #### [facility] [address] [place] [address] [address] Ruthie Richard PROF CHEM 8 (BAS METB)on Anion gap [Moles/Vol] 12.5 mmol/L Normal Th [facility] Comment on above: Performed By: #### B MP #### [facility] [address] [place] [address] Dr. Ruthie Richard Calcium [Mass/Vol] 9.1 mg/dL Normal 8.5-10.1 [facility] Comment on above: Performed By: #### B MP #### [facility] [address] [place] [address] Dr. Ruthie Richard Chloride [Moles/Vol] 97 mmol/L Critically low 98-107 [facility] Comment on above: Performed By: #### B MP #### [facility] [address] [place] [address] Dr. Ruthie Richard CO2 [Moles/Vol] 30.7 mmol/L Critically high 22.0-30.0 [facility] Comment on above: Performed By: #### B MP #### [facility] [address] [place] [address] Dr. Ruthie Richard Creatinine [Mass/Vol] 1.00 mg/dL Normal 0.52-1.04 [facility] Comment on above: Performed By: #### B MP #### [facility] [address] [place] [address] Dr. Ruthie Richard EGFR-AF NAURUAN >60 Normal >=60 [facility] Comment on above: Performed By: #### B MP #### [facility] [address] [place] [address] Dr. Ruthie Richard EGFR-NON AF NAURUAN 56 mL/min/1.73m2 Critically low >=60 [facility] Comment on above: Performed By: #### B MP #### [facility] [address] [place] [address] Dr. Ruthie Richard Glucose [Mass/Vol] 407 mg/dL Critically high 74-106 T [facility] Comment on above: Performed By: #### B MP #### [facility] [address] [place] [address] [address] Ruthie Richard Potassium [Moles/Vol] 4.2 mmol/L Normal 3.4-5.0 [facility] Comment on above: Performed By: #### B MP #### [facility] [address] [place] [address] [address] Ruthie Richard Sodium [Moles/Vol] 136 mmol/L Critically low 137-145 Th e [facility] Comment on above: Performed By: #### B MP #### [facility] [address] [place] [address] [address] Ruthie Richard Urea nitrogen [Mass/Vol] 23.0 mg/dL Critically high 7.0-18.0 [facility] Comment on above: Performed By: #### B MP #### [facility] [address] [place] [address] [address] Ruthie Richard Urea nitrogen/Creatinine [Mass ratio] 23.0 mg/mg Normal [facility] Comment on above: Performed By: #### B MP #### [facility] [address] [place] [address] [address] Ruthie Richard XR CHEST 1 Von 11-06-2021 XR CHEST 1 V EXAM: XR [...] by: MARGE CAGLE Date: 2021-11-06 18:12 Normal [facility] XR CHEST 1 Von 11-02-2021 XR CHEST 1 V EXAMINATION: XR [...] by: MIRIAM NEAL Date: 2021-11-02 13:19 Normal [facility] Vital Signs Date Time Vital Sign Value Performing Clinician Frandy huddleston 11-15-2023 12:24-0400 Body mass index (BMI) [Ratio] 26.16 kg/m2 Harish Marshall MD Work Phone: [facility] 11-15-2023 12:24-0400 Body weight 75.75 kg Harish Marshall MD Work Phone: [facility] 11-15-2023 12:24-0400 Diastolic blood pressure 66 mm[Hg] Harish Marshall MD Work Phone: [facility] 11-15-2023 12:24-0400 Heart rate 76 /min Harish Marshall MD Work Phone: [facility] 11-15-2023 12:24-0400 Systolic blood pressure 123 mm[Hg] Harish Marshall MD Work Phone: [facility] 05-10-2023 12:08-0400 Body weight 75.75 kg Harish Marshall MD Work Phone: [facility] 05-10-2023 12:08-0400 Diastolic blood pressure 66 mm[Hg] Harish Marshall MD Work Phone: [facility] 05-10-2023 12:08-0400 Heart rate 77 /min Harish Marshall MD Work Phone: [facility] 05-10-2023 12:08-0400 Systolic blood pressure 122 mm[Hg] Harish Marshall MD Work Phone: [facility] 02-08-2023 12:40-0400 Body weight 78.02 kg Harish Marshall MD Work Phone: [facility] 02-08-2023 12:40-0400 Diastolic blood pressure 62 mm[Hg] Harish Marshall MD Work Phone: [facility] 02-08-2023 12:40-0400 Heart rate 66 /min Harish Marshall MD Work Phone: [facility] 02-08-2023 12:40-0400 Systolic blood pressure 128 mm[Hg] Harish Marshall MD Work Phone: [facility] 11-09-2022 13:10-0400 Body height 170.2 cm Harish Marshall MD Work Phone: [facility] 11-09-2022 13:10-0400 Body weight 80.74 kg Harish Marshall MD Work Phone: [facility] 11-09-2022 13:10-0400 Diastolic blood pressure 65 mm[Hg] Harish Marshall MD Work Phone: [facility] 11-09-2022 13:10-0400 Heart rate 86 /min Harish Marshall MD Work Phone: [facility] 11-09-2022 13:10-0400 SaO2% (BldA) [Mass fraction] 94 % Harish Marshall MD Work Phone: [facility] 11-09-2022 13:10-0400 Systolic blood pressure 118 mm[Hg] Harish Marshall MD Work Phone: [facility] 07-07-2022 08:53-0500 Diastolic blood pressure 68 mm[Hg] MD Aleksander Jimenez Work Phone: [facility] 07-07-2022 08:53-0500 Heart rate 60 /min MD Aleksander Jimenez Work Phone: [facility] 07-07-2022 08:53-0500 Respiratory rate 16 /min MD Aleksander Jimenez Work Phone: [facility] 07-07-2022 08:53-0500 SaO2% (BldA) [Mass fraction] 92 % MD Aleksander Jimenez Work Phone: [facility] 07-07-2022 08:53-0500 Systolic blood pressure 117 mm[Hg] MD Aleksander Jimenez Work Phone: [facility] 07-07-2022 07:51-0500 Body height 170.18 cm MD Aleksander Jimenez Work Phone: [facility] 07-07-2022 07:51-0500 Body mass index (BMI) [Ratio] 27.9 kg/m2 MD Aleksander Jimenez Work Phone: [facility] 07-07-2022 07:51-0500 Body weight 81 kg MD Aleksander Jimenez Work Phone: [facility] 07-07-2022 05:57-0500 Body temperature 97.7 [degF] MD Aleksander Jimenez Work Phone: [facility] Encounters Encounter Date Encounter Type Care Provider Facility Start: 02-27-2024 ambulatory MD Julee De Los Santos [facility]il [facility] Start: 02-20-2024 ambulatory MD Julee De Los Santos Facil [facility]y:[facility] Start: 12-29-2023 End: 12-29-2023 ambulatory ANDRA OAKES Not Available Start: 12-19-2023 End: 12-20-2023 ambulatory MD uJlee De Los Santos [facility] [facility] Start: 11-27-2023 End: 11-28-2023 ambulatory MD Julee De Los Santos Facility:[facility] [place] [facility] Start: 11-20-2023 End: 11-21-2023 ambulatory MD Julee De Los Santos [facility] [place] [facility] Start: 11-15-2023 End: 11-16-2023 ambulatory JULEE DE LOS SANTOS Facility:[facility] Start: 11-15-2023 End: 11-15-2023 Office outpatient visit 25 minutes Harish Marshall MD Work Phone: Rheumatology Comment on above: Rheumatoid arthritis involving multiple sites with positive rheumatoid factor (HCC) (Primary Dx); Osteopenia of multiple sites; Encounter for long-term (current) use of medications; Change in voice; Toenail fungus Start: 11-01-2023 End: 11-02-2023 ambulatory MD Julee De Los Santos [facility]: [facility] Start: 10-09-2023 End: 10-10-2023 ambulatory MD Julee De Los Santos [facility]: [facility] Start: 10-06-2023 Telephone encounter Harish ross MD Work Phone: Rheumatology Comment on above: Results Start: 09-15-2023 End: 09-16-2023 ambulatory TURBO GENERATOR OILER Silvia L Faith Facility:[facility] Start: 09-15-2023 End: 09-16-2023 ambulatory TURBO GENERATOR OILER Silvia L Faith Facility: [facility] Start: 09-15-2023 End: 09-15-2023 Lab Drop off Silvia L Faith [facility] Start: 09-11-2023 End: 09-12-2023 ambulatory JEANINE VAZQUEZ Facility: [facility] Start: 08-16-2023 End: 08-17-2023 ambulatory JULEE DE LOS SANTOS Facility:[facility] Start: 07-19-2023 End: 07-20-2023 ambulatory TURBO GENERATOR OILER Silvia L Faith Facility: [facility] Start: 07-11-2023 End: 07-12-2023 ambulatory TURBO GENERATOR OILER Silvia L Faith Facility: [facility] Start: 07-10-2023 End: 07-11-2023 ambulatory MD Julee De Los Santos Facility:[facility] Start: 05-10-2023 End: 05-11-2023 ambulatory Mercedes Peña RT(R) Radiology Comment on above: Radiology XR Start: 05-10-2023 Patient encounter procedure Mercedes Peña RT(R) [facility] Start: 05-10-2023 End: 05-10-2023 Subsequent hospital visit by physician Xr [facility] Comment on above: Thoracic back pain, [...] unspecified chronicity Start: 04-10-2023 End: 04-11-2023 ambulatory MD Julee De Los [facility] Start: 02-08-2023 End: 02-09-2023 ambulatory HARISH MARSHALL Facility:[facility] Start: 02-08-2023 End: 02-08-2023 Office outpatient visit 25 minutes Harish Marshall MD Work Phone: Rheumatology Comment on above: Rheumatoid arthritis involving multiple sites with positive rheumatoid factor (HCC) (Primary Dx); Encounter for long-term (current) use of medications Start: 01-09-2023 End: 01-10-2023 ambulatory MD Julee De Los Santos Facility:[facility] Start: 01-09-2023 End: 01-09-2023 Lab Drop off Julee De Los Santos [facility] Start: 11-09-2022 ambulatory Mercedes baxter RT(R) Radiology Comment on above: Radiology XR Start: 11-09-2022 Patient encounter procedure Mercedes Peña RT(R) [facility] Start: 11-09-2022 End: 11-09-2022 Office outpatient new 60 minutes Harish Marshall MD Work Phone: Rheumatology Comment on above: Rheumatoid arthritis involving multiple sites with positive rheumatoid factor (HCC) (Primary Dx) Start: 09-28-2022 End: 09-29-[address] ALEKSANDER JIMENEZ . Facility:[facility] Start: 09-13-2022 End: 09-14-[address] ALEKSANDER JIMENEZ . Facility:[facility] Start: 07-07-2022 End: 07-07-2022 ambulatory Aleksander Jimenez Facility:[facility] Start: 07-07-2022 End: 07-07-2022 Admission to same day surgery center MD Aleksander Jimenez Work Phone: [facility] Start: 07-07-2022 End: 07-07-2022 ambulatory MD Aleksander Jimenez Work Phone: [facility] Work Phone: Start: 07-05-2022 End: 07-06-[address] ALEKSANDER JIMENEZ . Facility:[facility] Start: 06-24-2022 End: 06-24-2022 ambulatory Aleksander Jimenez Facility:[facility] Start: 06-24-2022 End: 06-24-2022 ambulatory MD Aleksander Jimenez Work Phone: [facility] Work Phone: Start: 06-24-2022 End: 06-24-2022 Departed Referred MD Aleksander Jimenez Work Phone: [facility] Start: 06-24-2022 End: 06-24-2022 Patient encounter procedure MD Aleksander Jimenez Work Phone: [facility] Start: 02-16-2022 End: 02-17-[address] [...] De Los Santos Comment on above: 2014, normal 2020 Decompression of median nerve Julee De Los Santos Tooth extraction Silvia Cuevas Comment on above: 7 of them Total abdominal hyst erectomy with bilateral salpingo-oophorectomy Julee De Los Santos Plan of Treatment Date Care Activity Detail Author Start: 05-10-2026 Diabetes Screening Diabetes Screening [facility] Start: 11-09-2025 DIABETES SCREEN DIABETES SCREEN [facility] Start: 11-09-2025 Diabetes Screening Diabetes Screening [facility] Start: 03-20-2024 End: 03-20-2024 Patient encounter procedure 03/20/2024 12:00 PM EDT Office Visit Rheumatology [address] [place] [address] Harish Marshall MD [address] [place], [place] [id number] Return in about 4 months (around 03/16/2024). Rheumatology Comment on above: Return in about 4 months (around 03/16/20). Start: 01-24-2024 End: 01-24-2024 Patient encounter procedure 01/24/2024 1:25 PM EDT Office Visit Otolaryngology [address] [place] [address] Manohar Tubbs PA-C [address] [place] [address] Change in voice [R49.9] Otolaryngology Comment on above: Change in voice [R49.9] Start: 01-10-2024 End: 01-10-2024 Patient encounter procedure 01/10/2024 1:00 PM EDT Office Visit Internal Medicine [place] [address] [place] [address] Vivian Patel, RAILWAY STATION MANAGER.[employer]AR[employer] WORKER [address] [place] [address] est care [facility] Comment on above: est care Start: 01-04-2024 End: 01-04-2024 Patient encounter procedure 01/04/2024 2:20 PM EDT Office Visit Orthopaedics [address] [facility] [place], [place] [id number] Sarah Marley, DPM [address] [facility] [address] Toenail fungus [B35.1] Orthopaedics Comment on above: Toenail fungus [B35.1] Start: 11-15-2023 End: 02-14-2024 25-hydroxyvitamin D3 [Mass/volume] in Serum or Plasma [facility] Comment on above: Expected: 11/15/2023, Expires: Start: 11-15-2023 End: 02-14-2024 Comprehensive metabolic 2000 panel - Serum or Plasma [facility] Work Phone: Comment on above: Expected: 11/15/2023, Expires: Start: 11-15-2023 End: 02-14-2024 Parathyrin.intact [Mass/volume] in Serum or Plasma [facility] Comment on above: Expected: 11/15/2023, Expires: Start: 11-15-2023 End: 02-14-2024 Phosphate [Mass/volume] in Serum or Plasma [facility] Comment on above: Expected: 11/15/2023, Expires: Start: 11-15-2023 End: 02-14-2024 PROTEIN ELECTROPHORESIS SERUM W/INTERP [facility] Comment on above: Expected: 11/15/2023, Expires: Start: 11-15-2023 End: 02-14-2024 Thyrotropin [Units/volume] in Serum or Plasma [facility] Comment on above: Expected: 11/15/2023, Expires: Start: 08-29-2023 Covid-19 Vaccine () Covid-19 Vaccine () [facility] Start: 07-24-2023 Advance Directive Discussion Advance Directive Discussion [facility] Start: 07-24-2023 Behavioral Health Screening Behavioral Health Screening [facility] Start: 07-24-2023 Depression Assessment Depression Assessment [facility] Start: 03-24-2023 Covid-19 Vaccine () Covid-19 Vaccine () [facility] Start: 03-24-2023 Influenza vaccination [facility] Start: 02-08-2023 End: 04-10-2023 Alanine aminotransferase [Enzymatic activity/volume] in Serum or Plasma [facility] Work Phone: Comment on above: Expected: 02/08/2023, Expires: 3 Start: 02-08-2023 End: 04-10-2023 Albumin [Mass/volume] in Serum or Plasma [facility] Work Phone: Comment on above: Expected: 02/08/2023, Expires: 3 Start: 02-08-2023 End: 04-10-2023 Aspartate aminotransferase [Enzymatic activity/volume] in Serum or Plasma [facility] Work Phone: Comment on above: Expected: 02/08/2023, Expires: 3 Start: 02-08-2023 End: 04-10-2023 CREATININE BLD [facility] Work Phone: Comment on above: Expected: 02/08/2023, Expires: 3 Start: 11-09-2022 End: 01-09-2023 25-hydroxyvitamin D3 [Mass/volume] in Serum or Plasma [facility] Work Phone: Comment on above: Expected: 11/09/2022, Expires: 3 Start: 11-09-2022 End: 01-09-2023 BLOOD TB SCREEN [facility] Work Phone: Comment on above: Expected: 11/09/2022, Expires: 3 Start: 11-09-2022 End: 01-09-2023 C reactive protein [Mass/volume] in Serum or Plasma [facility] Work Phone: Comment on above: Expected: 11/09/2022, Expires: 3 Start: 11-09-2022 End: 01-09-2023 Comprehensive metabolic 2000 panel - Serum or Plasma [facility] Work Phone: Comment on above: Expected: 11/09/2022, Expires: 3 Start: 11-09-2022 End: 01-09-2023 Cyclic citrullinated peptide IgG Ab [Units/volume] in Serum or Plasma [facility] Work Phone: Comment on above: Expected: 11/09/2022, Expires: 3 Start: 11-09-2022 End: 01-09-2023 Hepatitis B virus core Ab [Presence] in Serum [facility] Work Phone: Comment on above: Expected: 11/09/2022, Expires: 3 Start: 11-09-2022 End: 01-09-2023 Hepatitis B virus surface Ab [Presence] in Serum [facility] Work Phone: Comment on above: Expected: 11/09/2022, Expires: 3 Start: 11-09-2022 End: 01-09-2023 Hepatitis B virus surface Ag [Presence] in Serum [facility] Work Phone: Comment on above: Expected: 11/09/2022, Expires: 3 Start: 11-09-2022 End: 01-09-2023 Hepatitis C virus Ab [Presence] in Serum [facility] Work Phone: Comment on above: Expected: 11/09/2022, Expires: 3 Start: 11-09-2022 End: 01-09-2023 Rheumatoid factor [Units/volume] in Serum or Plasma [facility] Work Phone: Comment on above: Expected: 11/09/2022, Expires: 3 Start: 07-24-2022 ADVANCE DIRECTIVE DISCUSSION ADVANCE DIRECTIVE DISCUSSION [facility] Start: 07-24-2022 DEPRESSION ASSESSMENT DEPRESSION ASSESSMENT [facility] Start: 07-07-2022 End: 07-07-2022 [facility] Start: 2022 BONE DENSITY BONE DENSITY [facility] Start: 2022 Bone Density Screening Bone Density Screening [facility] Start: 2022 Screening for osteoporosis Bone Density Screening [facility] Start: 05-10-2021 DIABETES SCREEN DIABETES SCREEN [facility] Start: 2017 RSV Vaccine (1 - 1-dose 60+ series) RSV Vaccine (1 - 1-dose 60+ series) [facility] Start: 04-24-2016 Pneumococcal Vaccine: 65+ (2 - PCV) Pneumococcal Vaccine: 65+ (2 - PCV) [facility] Start: 04-24-2016 Pneumococcal Vaccine: 65+ (2 of 2 - PCV) Pneumococcal Vaccine: 65+ (2 of 2 - PCV) [facility] Start: 07-27-2015 Lipid 1996 panel - Serum or Plasma Lipid Screening [facility] Start: 07-27-2015 Lipid panel Lipid Screening [facility] Start: 07-27-2015 LIPID SCREEN LIPID SCREEN [facility] Start: 2007 Influenza vaccination LUNG CANCER SCREENING [facility] Start: 2007 Screening for malignant neoplasm of lung Lung Cancer Screening [facility] Start: 2002 COLOGUARD (FIT-DNA) COLOGUARD (FIT-DNA) [facility] Start: 2002 Colonoscopy COLONOSCOPY [facility] Start: 2002 COLORECTAL CANCER SCREENING COLORECTAL CANCER SCREENING [facility] Start: [address] COLONOGRAPHY [facility] Start: 2002 FECAL OCCULT BLOOD FECAL OCCULT BLOOD [facility] Start: 2002 Screening for malignant neoplasm of colon [facility] Start: 2002 SIGMOIDOSCOPY SIGMOIDOSCOPY [facility] Start: 1997 Mammography [facility] Start: 1997 Screening for malignant neoplasm of breast Mammogram Screening [facility] Start: 1976 SHINGRIX VACCINE (1 of 2) SHINGRIX VACCINE (1 of 2) [facility] Start: 1976 Urine microalbumin profile [facility] Start: 1975 HIV SCREENING HIV SCREENING [facility] Start: 1963 PNEUMOCOCCAL: 65+ (1 - PCV) PNEUMOCOCCAL: 65+ (1 - PCV) [facility] End: 12-10-2023 XR FOOT GENERAL 3V AP/LAT/OBL BILATERAL XR FOOT GENERAL 3V AP/LAT/OBL BILATERAL Radiology Routine Rheumatoid arthritis involving multiple sites with positive rheumatoid factor (HCC) 1 Occurrences starting 11/09/2022 until 12/10/[address] [facility] Work Phone: Comment on above: 1 Occurrences starting 11/09/2022 until 12/10/2023 XR FOOT GENERAL 3V AP/LAT/OBL BILATERAL XR FOOT GENERAL 3V AP/LAT/OBL BILATERAL Radiology Routine Rheumatoid arthritis involving multiple sites with positive rheumatoid factor (HCC) 11/09/2022 3:01 PM EDT [facility] Work Phone: End: 12-10-2023 XR HAND GENERAL 3V PA/LAT/OBL BILATERAL XR HAND GENERAL 3V PA/LAT/OBL BILATERAL Radiology Routine Rheumatoid arthritis involving multiple sites with positive rheumatoid factor (HCC) 1 Occurrences starting 11/09/2022 until 12/10/[address] [facility] Work Phone: Comment on above: 1 Occurrences starting 11/09/2022 until 12/10/2023 XR HAND GENERAL 3V PA/LAT/OBL BILATERAL XR HAND GENERAL 3V PA/LAT/OBL BILATERAL Radiology Routine Rheumatoid arthritis involving multiple sites with positive rheumatoid factor (HCC) 11/09/2022 3:01 PM EDT [facility] Work Phone: [facility] Immunizations Immunization Date Immunization Notes Care Provider [facility] 07-04-2023 influenza virus vaccine, unspecified formulation Silvia Cuevas [facility] 08-10-2022 SARS-CoV-2 (COVID-19 ) [id number] [facility] 05-13-2022 influenza virus vaccine, unspecified formulation Julee De Los Santos [facility] 12-15-2021 SARS-CoV-2 (COVID-19 ) mRNA-1273 vaccine Julee De Los Santos [facility] Comment on above: Result Comment: 2022: [id number] 08-13-2021 zoster vaccine recombinant Julee De Los Santos [facility] 05-20-2021 SARS-CoV-2 (COVID-19 ) mRNA-1273 vaccine Julee De Los Santos [facility] Comment on above: Result Comment: 2022: [id number] 04-30-2021 zoster vaccine recombinant Julee De Los Santos [facility] 04-28-2021 influenza virus vaccine, unspecified formulation Julee De Los Santos [facility] 11-11-2020 SARS-CoV-2 (COVID-19 ) mRNA-1273 vaccine Julee De Los Santos [facility] 10-29-2020 SARS-CoV-2 (COVID-19 ) mRNA-1273 vaccine Julee De Los Santos [facility] Comment on above: Result Comment: 2022: [id number] 10-01-2020 SARS-CoV-2 (COVID-19 ) mRNA-1273 vaccine Julee De Los Santos [facility] Comment on above: Result Comment: 2022: [id number] 06-06-2017 influenza virus vaccine, unspecified formulation Julee De Los Santos [facility] 04-24-2015 pneumococcal polysaccharide vaccine, 23 valent Julee De Los Santos [facility] NEGATED: Highlighted row has not occurred!04-10-2023 influenza virus vaccine, unspecified formulation Silvia Cuevas [facility] Payers Date Payer Category Payer Medicare [id number] 2022 Self-pay [id number] 2022 Medicare [employer] SNP [id number] 2022-Present [phone] [address] [place] [address] HMO [id number] 2018 Medicaid MEDICAID [facility] MEDICAID [id number] 2018-Present [phone] [address] [place] [address] Medicaid [id number] 1959 Medicaid [id number] 1957 Medicare [id number] 1959 Medicare [id number] 1957 Unknown [id number] 2.16.840.1.951170.3.579.2.593 1955 Unknown [id number] 2..840.1.224050.3.579.2.593 1955 Unknown [id number] 2..840.1.515924.3.579.2.593 1957 Unknown [id number] 2.16.840.1.154751.3.579.2.593 1957 Unknown [id number] 2.16.840.1.468324.3.579.2.593 1957 Unknown [id number] 2.16.840.1.894905.3.579.2.593 1957 Unknown [id number] 2.16.840.1.158553.3.579.2.593 1957 Unknown [id number] 2.16.840.1.051056.3.579.2. 1957 Unknown [id number] 2.16.840.1.086827.3.579.2. 1957 Unknown [id number] 2.16.840.1.069304.3.579.2. 1957 Unknown [id number] 2.16.840.1.662623.3.579.2. 1957 Unknown [id number] 2.16.840.1.023884.3.579.2 1957 Unknown [id number] 2.16.840.1.201505.3.579.2 1957 Unknown [id number] 2.16.840.1.396304.3.579.2 1957 Unknown [id number] 2.16.840.1.967966.3.579.2 1957 Unknown [id number] 2.16.840.1.408636.3.579.2 1957 Unknown [id number] 2.16.840.1.491715.3.579.2 1957 Unknown [id number] 2.16.840.1.883153.3.579.2. 1957 Unknown [id number] 2.16.840.1.538561.3.579.2. 1957 Unknown [id number] 2.16.840.1.038188.3.579.2 1957 Unknown [id number] 2.16.840.1.104812.3.579.2 1957 Unknown [id number] 2.16.840.1.033503.3.579.2 1957 Unknown [id number] 2.16.840.1.892974.3.579.2.727 1957 Unknown [id number] 2.16.840.1.394929.3.579.2.727 1957 Unknown [id number] 2.16.840.1.155566.3.579.2.727 1957 Unknown [id number] 2.16.840.1.272995.3.579.2.727 1957 Unknown [id number] 2.16.840.1.204850.3.579.2.727 1957 Unknown [id number] 2.16.840.1.973918.3.579.2.1259 Medicaid [facility] [id number] Unknown [id number] 2.16.840.1.125847.3.579.2.531 Unknown [id number] 2.16.840.1.164932.3.579.2.531 Social History Date Type Detail Facility Start: 06-24-2022 End: 11-09-2022 Tobacco smoking status KSIS Ex-smoker (finding) [facility] Comment on above: denies use Start: 1955 Sex Assigned At Female [facility] End: 07-24-2015 History of tobacco use Current smoker [facility] End: 07-24-2015 History of tobacco use Cigarette Smoker [facility] Start: 11-09-2022 End: 02-08-2023 Cigarettes smoked current (pack per day) - Reported 0.8 [facility] Start: 11-09-2022 Tobacco use and exposure Smokeless tobacco non-user [facility] Start: 11-09-2022 End: 11-15-2023 Alcohol intake Current non-drinker of alcohol (finding) [facility] Start: 11-09-2022 Tobacco Comment active smoker for about 40 years about 1 pk per day; quit 2015 [facility] Start: 1955 Sex Assigned At Not on file [facility] Tobacco smoking status Never [facility] Comment on above: denies use Start: 11-09-2022 End: 02-08-2023 Sex Assigned At Female [facility] Medical Equipment Procedure Code Equipment Code Equipment Origin al Text Equipment Identifier Dates [facility] Prescription, See Instructions, 100 strip(s), 0, Disp one Glucometer, #100 test strips and #100 lancets to test blood sugars once a day. Dx E11.8, [employer] #72, Supply Start: 12-07-2022 [facility] Prescription, See Instructions, 100 strip(s), 0, Disp one Glucometer, #100 test strips and #100 lancets to test blood sugars once a day. Dx E11.8, [facility] [employer] #[facility], Supply Start: 12-07-2022 Goals Date Patient Goal Desired Activity /State Clinical Notes 11-09-2022 to 11-15-2023 Harish Marshall MD - 11/15/2023 11:57 AM EDTTelephone Encounter - Saad Melendez RN - 10/06/2023 11:29 AM EDTTelephone Encounter - Pierce Cohen - 10/06/2023 11:11 AM EDTLaboratory Note Date & Type Note Facility 11-15-2023 Note HNO ID: [id number] Author: HARISH MARSHALL MD Service: ? Author Type: Physician Type: Progress Notes Filed: 11/15/2023 15:07 Note Text: Rheumatology Outpatient Clinic Date of Service: 11/15/2023 Patient: Yamile Rose Medical Record: [id number] Primary Care Physician: Aleksander Jimenez MD Referring Provider: SELF Last Rheumatology visit: 08/16/2023 (with Harish Marshall) Chief complaint: Pain (intermittent shooting pain to right thumb X 2 months/lower back pain radiates down right leg-getting worse-10/10 intermittently/pain to middle malb-fmbwf-qdqkedlhyrdq 10/10) History of Present Illness Yamile Rose is a 68 year old White female with medical history of rheumatoid arthritis, hyperlipidemia, diabetes mellitus, history of tobacco use, Histoplasmosis right eye in ( treated), macular 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 She is currently taking methotrexate sodium, prednisone. Yamile is both RF - 49 (11/09/2022) and CCP - 275 (11/09/2022) positive. HISTORY OF PRESENT ILLNESS History of rheumatoid arthritis She was being followed by local rheumatology in [place], but her daughter wanted her to get a 2nd opinion at [facility]. Seen by Dr. Livingston in 05/2018 Her local rheum added methotrexate which she started after her visit here in 05/2018 She was following with sustainability purchasing agent at [place] however her insurance was no more covering the sustainability purchasing agent in [place] so she came back to [facility]. Patient reports pain over MCPs, PIPs, wrists, [...] Continue folic acid to 2 mg daily 07/2023- No synovitis, Continue methotrexate 20 mg weekly Continue folic [...] lower lumbar spine. INTERVAL HISTORY Today She was seen for follow-up with her daughter She reports doing much better from rheumatoid arthritis standpoint, no joint swelling Pain over right thumb sometimes while doing sometimes She continues to have back pain, sometimes gets shooting pain radiating to her legs. She has been having sinus issues recently with change in voice, nasal drainage, has not been able to see ENT She had DEXA in 09/2023 that showed osteopenia. She reports right fifth toe fracture after bumping hard in the kitchen, denies any other fracture. PCP had prescribed Fosamax, has not started yet. Patient-Entered Data PAIN EVALUATION 11/15/2023 1218 Pain Level: 10 Pain Location: -- right thumb Description: Shooting Duration Units: Months Frequency: Intermittent Intervention/Comfort measure: Medication;Relaxation PROMIS Assessments 05/05/2023 08/15/2023 11/09/2023 PROMIS Assessments Physical Health Percentile 10 22 31 Mental Health Percentile 9 19 26 Pain Score 3 3 4 Pain Interference Percentile 12 12 16 Fatigue Per (more content not included)... [facility] 11-15-2023 History of Present illness Narrative Images from the original note were not included. Rheumatology Outpatient Clinic Date of Service: 11/15/2023 Patient: Yamile Rose Medical Record: [id number] Primary Care Physician: Aleksander Jimenez MD Referring Provider: SELF Last Rheumatology visit: 08/16/2023 (with Harish Marshall) Chief complaint: Pain (intermittent shooting pain to right thumb X 2 months/lower back pain radiates down right leg-getting worse-/ intermittently/pain to middle jsfa-qwnpu-ujbnwdgemgja 10/10) History of Present Illness Yamile Rose is a 68 year old White female with medical history of rheumatoid arthritis, hyperlipidemia, diabetes mellitus, history of tobacco use, Histoplasmosis right eye in ( treated), macular degeneration ( blind right eye central vision), presents on 11/15/2023 for an in-person visit for evaluation of Pain (intermittent shooting pain to right thumb X 2 months/lower back pain radiates down right leg-getting worse-10/10 intermittently/pain to middle drql-anoib-nczlbrwydbjn 10/10). She is currently taking methotrexate sodium, prednisone. Yamile is both RF - 49 (11/09/2022) and CCP - 275 (11/09/2022) positive. HISTORY OF PRESENT ILLNESS History of rheumatoid arthritis She was being followed by local rheumatology in [place], but her daughter wanted her to get a 2nd opinion at [facility]. Seen by Dr. Livingston in 05/2018 Her local rheum added methotrexate which she started after her visit here in 05/2018 She was following with sustainability purchasing agent at [place] however her insurance was no more covering the sustainability purchasing agent in [place] so she came back to [facility]. Patient reports pain over MCPs, PIPs, wrists, [...] Continue folic acid to 2 mg daily 07/2023- No synovitis, Continue methotrexate 20 mg weekly Continue folic [...] lower lumbar spine. INTERVAL HISTORY Today She was seen for follow-up with her daughter She reports doing much better from rheumatoid arthritis standpoint, no joint swelling Pain over right thumb sometimes while doing sometimes She continues to have back pain, sometimes gets shooting pain radiating to her legs. She has been having sinus issues recently with change in voice, nasal drainage, has not been able to see ENT She had DEXA in 09/2023 that showed osteopenia. She reports right fifth toe fracture after bumping hard in the kitchen, denies any other fracture. PCP had prescribed Fosamax, has not started yet. Patient-Entered Data PAIN EVALUATION 11/15/2023 1218 Pain Level: 10 Pain Location: -- right thumb Description: Shooting Duration Units: Months Frequency: Intermittent Intervention/Comfort measure: Medication;Relaxation PROMIS Assessments 05/05/2023 08/15/2023 11/09/2023 PROMIS Assessments Physical Health Percentile 10 22 31 Mental Health Percentile 9 19 26 Pain Score 3 3 4 Pain Interference Percentile 12 12 16 Fatigue Percentile 24 24 24 Physical Function Percentile 16 18 18 RAPID 3 [place] Activities of Daily Living 11/09/2023 8:49 AM 08/15/2023 8:50 AM 05/05/2023 9:15 AM First answer obtained - 11/08/2022 11:32 [...] out of car? With SOME difficulty With SOME difficulty With SOME difficulty With SOME difficulty RAPID 3 Disease Activity Weighed Score Levels: 0 - 1: Near Remission 1.3 - 2.0: Low Severity 2.3 - 4.0: Moderate Severity 4.3 - 10.0: High Severity 05/05/2023 08/15/2023 11/09/2023 RAPID-3 Weighed Score RAPID 3 Weighed Score 5.28 (High Severity (HS)) 4.44 (High Severity (HS)) 3.44 (Moderate Severity (MS)) Review of Systems Review of Systems CONSTITUTION: Negative for: Fever and Recent weight change HEENT: Positive for: Dry mouth Negative for: Nosebleeds, Mouth sores and Trouble swallowing RESPIRATORY: Negative for: Cough, Shortness of breath and Pain with breathing GASTROINTESTINAL: Negative for: Melena, Diarrhea, Heartburn and Abdominal pain MUSCULOSKELETAL: Positive for: Arthralgias, Myalgias, Muscle weakness, Joint swelling and Morning Joint Stiffness NEUROLOGICAL: Negative for: Headaches, Numbness and Memory loss SKIN: Positive for: Hair loss Negative for: Rash, Skin changes and Nail changes EYES: Positive for: Eye pain, Eye redness, Eye dryness and Visual disturbance CARDIOVASCULAR: Negative for: Chest pain and Leg swelling GENITOURINARY: Negative for: Dysuria and Hematuria HEMATOLOGIC/LYMPHATIC: Negative for: Swollen glands Raynaud's: Denies Dry eyes, denies dry mouth Past Medical History PAST MEDICAL HISTORY Diagnosis Date Hyperlipidemia 07/27/2010 Macular degeneration 07/27/2010 Normal coronary arteries 07/2010 [facility] performed for evaluation chest pain, abnormal stress [...] Current Medications Current Outpatient Medications Medication Sig INV SEMAGLUTIDE, OZEMPIC,, 2 MG/1.5 ML, PEN (IRB 20-853) Inject 0.5 mg subcutaneously one time a week. For Investigation Drug Use Only. PI: Dr. Pierce Lee atorvastatin (LIPITOR) 20 mg tablet 1 PO at bedtime predniSONE (DELTASONE) 5 mg tablet Take 1 tablet by mouth as needed. Take 1 tablet by mouth daily as needed metFORMIN (GLUCOPHAGE) 850 mg tablet TAKE 1 TABLET BY MOUTH DAILY WITH BREAKFAST & supper methotrexate 2.5 mg tablet Take 8 tablets by mouth one time a week. folic acid 1 mg tablet Take 2 tablets by mouth once daily. No current facility-administered medications for this visit. Labs Latest Ref Rng & Units 11/09/2022 02/08/2023 05/10/2023 08/16/2023 CBC WBC 3.70 - 11.00 k/uL 6.38 6.74 6.63 6.86 Hemoglobin 11.5 - 15.5 g/dL 15.0 14.3 14.3 15.4 Hematocrit 36.0 - 46.0 % 46.4 44.1 43.6 45.1 Platelet Count 150 - 400 k/uL 231 222 200 211 Abs Neut (ANC) 1.45 - 7.50 k/uL 3.73 3.75 3.96 4.36 Abs Lymph 1.00 - 4.00 k/uL 1.94 2.30 1.98 1.91 Latest Ref Rng & Units 11/09/2022 02/08/2023 05/10/2023 08/16/2023 CMP Sodium 136 - 144 mmol/L 140 140 Potassium 3.7 - 5.1 mmol/L 4.3 4.4 Chloride 97 - 105 mmol/L 104 104 CO2 22 - 30 mmol/L 25 26 Glucose 74 - 99 mg/dL 124 97 BUN 7 - 21 mg/dL 14 12 Creatinine 0.58 - 0.96 mg/dL 1.04 0.82 0.71 0.85 Calcium 8.5 - 10.2 mg/dL 9.6 9.3 AST 13 - 35 U/L 16 24 15 15 ALT 7 - 38 U/L 15 31 12 19 Alkaline Phosphatase 34 - 123 U/L 72 70 Latest Ref Rng & Units 05/10/2018 11/09/2022 ESR, WSR WSR 0 - 20 mm/hr 8 6 Latest Ref Rng & Units 05/10/2018 11/09/2022 CRP CRP <0.9 mg/dL 0.3 <0.3 Latest Ref Rng & Units 07/29/2010 CK CK 30 - 220 U/L 75 Latest Ref Rng & Units 05/10/2018 11/09/2022 RF and CCP Rheumatoid Factor <16 IU/mL 23 49 CCP Antibody IgG Qualitative Negative Strong Positive CCP Antibody, IgG <20 Units 25 >250 Latest Ref Rng & Units 05/10/2018 11/09/2022 Hepatitis Screen Hep B Core Ab, Total Negative Negative Negative Hep B Surf Ab Qual Positive Negative Negative Hep C Antibody IA Negative Negative Negative Hep B Surface Ag Negative Negative HBsAg Negative Negative 05/10/2018 11/09/2022 TB Screen TB Interpretation No evidence of current or previous infection with Mycobacterium tuberculosis. Infection with M. tuberculosis complex is unlikely. If latent tuberculosis infection is highly suspected, a negative result does not rule out the infection. Specimens from immunocompromised patients and those <5 years of age may show false negative results. In case of a contact investigation, please repeat 8-12 weeks after a known exposure. TB Result Negative Negative Latest Ref Rng & Units 05/10/2018 11/09/2022 Vitamin D Vitamin D 25 Hydroxy 31.0 - 80.0 ng/mL 26.0 31.8 Imaging Last XR Hand/Finger - Impression Only XR HAND GENERAL 3V PA/LAT/OBL BILATERAL Exam End: 11/09/2022 3:01 PM (Final result) Impression: IMPRESSION: 1. Mild osteoarthritis of the bilateral hands. Counter Professional: MAGDA Transcribe Date/Time: Nov 10 2022 8:57A ... Last MRI Hand - Impression Only No resulted procedures found. Last XR Chest - Impression Only No resulted procedures found. Last XR Cervical Spine - Impression Only No resulted procedures found. Health Maintenance Current Immunizations Never Reviewed Name Date COVID-19 vaccine, 2022- season ([employer] 07/04/2023 COVID-19 vaccine, bivalent (MODERNA) 08/10/2022 COVID-19 vaccine, monovalent (MODERNA) 12/15/2021 , 05/20/2021 , 10/29/2020 , 10/01/2020 Physical Exam VITAL SIGNS: BP 123/66 Pulse 76 Wt 167 lb (75.8kg) GENERAL APPEARANCE: Well [...] with pronation/supination. No tenderness to palpation Hands: No synovitis or tenderness over MCPs, PIPs and DIPs Lower extremities: Knees: No swelling or effusion. No tenderness to palpation. Ankles: No tenderness to palpation Feet: No effusion. No tenderness to palpation. Diagnoses: (M05.79) Rheumatoid arthritis involving multiple sites with positive rheumatoid factor (HCC) (primary encounter diagnosis) (M85.89) Osteopenia of multiple sites (Z79.899) Encounter for long-term (current) use of medications (R49.9) Change in voice (B35.1) Toenail fungus Impression and Plan 1. Seropositive Rheumatoid arthritis, non erosive, non nodular Manifestations- Joint pain with swelling, synovitis, RF 23, CCP 250, good response to methotrexate and prednisone Status-doing well on methotrexate, no joint swelling, except pain over thumb and back radiating to legs which is likely related to osteoarthritis/sciatica respectively. 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 Monitoring for drug toxicity CBC, CMP to monitor methotrexate toxicity today TB screening, hep B/C negative in 10/2022 3. Midthoracic pain Reports midthoracic pain with swelling on and off No history of trauma radiograph thoracic spine with spondylosis Consider spine clinic if her pain persist/worsen 4. Osteoarthritis She does also have osteoarthritis which could be contributing to her knee and shoulder pain continue taking Tylenol as needed May take Aleve as needed She is not willing to do aquatic therapy, referral to physical therapy was given 5. Osteopenia DEXA 09/2023 reviewed in scanned documents-osteopenia with lowest T-score -1.7 right femoral neck She reports right fifth toe fracture after bumping hard in the kitchen, denies any other fracture. PCP had prescribed Fosamax, has not started yet, reluctant to take too many medications. Will obtain PTH, vitamin D, TSH, SPEP to evaluate for secondary causes of bone loss Since he has not been on steroids recently, okay to repeat DEXA for monitoring bone density, if she has significant worsening, would recommend starting bone strengthening agent. Continue vitamin D supplementation, 1000 unit daily 6. Sinus fullness, postnasal discharge ENT referral, has not been able to get referral from her PCP 7. Toenail fungal infection Referral to podiatry 8. Healthcare maintenance/Malignancy screening Defer to PCP Orders this visit: Office Visit on 11/15/23 COMPREHENSIVE METABOLIC PANEL COMPLETE BLOOD COUNT AND DIFFERENTIAL PHOSPHORUS INORGANIC PTH INTACT PROTEIN ELECTROPHORESIS SERUM W/INTERP VITAMIN D 25 HYDROXY THYROID STIMULATING HORMONE CONSULT TO PODIATRY CONSULT TO ENT INV SEMAGLUTIDE, OZEMPIC,, 2 MG/1.5 ML, PEN (IRB 20-173) methotrexate 2.5 mg tablet folic acid 1 mg tablet Return in about 4 months (around 03/16/2024). I spent a total of 30 minutes on the date of the service which included preparing to see the patient, [id number] patient care, completing clinical documentation, obtaining and/or reviewing separately obtained history, performing a medically appropriate examination, counseling and educating the patient/family/caregiver, and ordering medications, tests, or procedures. Harish Marshall MD, [facility] Rheumatology documented in this encounter [facility] 10-06-2023 Miscellaneous Notes Scan on 10/06/2023 10:54 AM by Provider, SYDNEE Rosenberg: XR DEXA axial skeleton Received XR DEXA axial skeleton results via fax from [address] Exam date 09/25/23 Scanned under imaging Pt has aleah 11/15/23 /12:30pm documented in this encounter [facility] 09-15-2023 Evaluation + Plan note Future Scheduled [id number] 09/15/23CV Antibody RFX to Quant PCR 09/15/23 [facility] 08-16-2023 Note HNO ID: [id number] Author: HARISH MARSHALL MD Service: ? Author Type: Physician Type: Progress Notes Filed: 08/16/2023 12:58 Note Text: Rheumatology Outpatient Clinic Date of Service: 08/16/2023 Patient: Yamile Rose Medical Record: [id number] Primary Care Physician: Aleksander Jimenez MD Referring [...] was being followed by local rheumatology in [place], but her daughter wanted her to get a 2nd opinion at [facility]. Seen by Dr. Livingston in 05/2018 Her local rheum added methotrexate which she started after her visit here in 05/2018 She was following with sustainability purchasing agent at [place] however her insurance was no more covering the sustainability purchasing agent in [place] so she came back to [facility]. Patient reports pain over MCPs, PIPs, wrists, [...] With SOME diff (more content not included)... [facility] 05-10-2023 Note HNO ID: [id number] Author: Mercedes Peña RT(R) Service: ? Author [...] RT Bk(R) May 10, 2023 1:[address] [facility] 05-10-2023 Note HNO ID: [id number] Author: Harish Marshall MD Service: ? Author Type: Physician Type: Progress Notes Filed: 05/10/2023 12:59 PM Note Text: Rheumatology Outpatient Clinic Date of Service: 05/10/2023 Patient: Yamile Rose Medical Record: [id number] Primary Care Physician: Aleksander Jimenez MD Referring [...] was being followed by local rheumatology in [place], but her daughter wanted her to get a 2nd opinion at [facility]. Seen by Dr. Livingston in 05/2018 Her local rheum added methotrexate which she started after her visit here in 05/2018 She was following with sustainability purchasing agent at [place] however her insurance was no more covering the sustainability purchasing agent in [place] so she came back to [facility]. Patient reports pain over MCPs, PIPs, wrists, [...] 6.39 (High S (more content not included)... [facility] 05-10-2023 History of Present illness Narrative [...] 2023 1:35 PM documented in this encounter [facility] 05-10-2023 History of Present illness Narrative Images from the original note were not included. Rheumatology Outpatient Clinic Date of Service: 05/10/2023 Patient: Yamile Rose Medical Record: [id number] Primary Care Physician: Aleksander Jimenez MD Referring [...] was being followed by local rheumatology in [place], but her daughter wanted her to get a 2nd opinion at [facility]. Seen by Dr. Livingston in 05/2018 Her local rheum added methotrexate which she started after her visit here in 05/2018 She was following with sustainability purchasing agent at [place] however her insurance was no more covering the sustainability purchasing agent in [place] so she came back to [facility]. Patient reports pain over MCPs, PIPs, wrists, [...] Macular degeneration 07/27/2010 Normal coronary arteries 07/2010 [facility] performed for evaluation chest pain, abnormal stress [...] years about 1 pk per day; quit 2016 Substance Use Topics Alcohol use: No Drug [...] 1. Mild osteoarthritis of the bilateral hands. Counter Professional: MAGDA Transcribe Date/Time: Nov 10 2022 8:57A [...] Full ROM in flexion and extension. 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 Synovitis and tenderness over right long [...] which included preparing to see the patient, [id number] patient care, completing clinical documentation, obtaining and/or reviewing separately obtained history, performing a medically appropriate examination, counseling and educating the patient/family/caregiver, and ordering medications, tests, or procedures. Harish Marshall MD, [facility] Rheumatology documented in this encounter [facility] 02-08-2023 Note HNO ID: [id number] Author: Harish Marshall MD Service: ? Author Type: Physician Type: Progress Notes Filed: 02/08/2023 1:31 PM Note Text: Rheumatology Outpatient Clinic Date of Service: 02/08/2023 Patient: Yamile Rose Medical Record: [id number] Primary Care Physician: Aleksander Jimenez MD Referring [...] was being followed by local rheumatology in [place], but her daughter wanted her to get a 2nd opinion at [facility]. Seen by Dr. Livingston in 05/2018 Her local rheum added methotrexate which she started after her visit here in 05/2018 She was following with sustainability purchasing agent at [place] however her insurance was no more covering the sustainability purchasing agent in [place] so she came back to [facility]. Patient reports pain over MCPs, PIPs, wrists, [...] changes, Hair los (more content not included)... [facility] 02-08-2023 History of Present illness Narrative Images from the original note were not included. Rheumatology Outpatient Clinic Date of Service: 02/08/2023 Patient: Yamile Rose Medical Record: [id number] Primary Care Physician: Aleksander Jimenez MD Referring [...] was being followed by local rheumatology in [place], but her daughter wanted her to get a 2nd opinion at [facility]. Seen by Dr. Livingston in 05/2018 Her local rheum added methotrexate which she started after her visit here in 05/2018 She was following with sustainability purchasing agent at [place] however her insurance was no more covering the sustainability purchasing agent in [place] so she came back to [facility]. Patient reports pain over MCPs, PIPs, wrists, [...] 1. Mild osteoarthritis of the bilateral hands. Counter Professional: MAGDA Transcribe Date/Time: Nov 10 2022 8:57A [...] Full ROM in flexion and extension. 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 No synovitis, no tenderness over MCPs, [...] which included preparing to see the patient, [id number] patient care, completing clinical documentation, obtaining and/or reviewing separately obtained history, performing a medically appropriate examination, counseling and educating the patient/family/caregiver, and ordering medications, tests, or procedures. Harish Marshall MD, [facility] Rheumatology documented in this encounter [facility] 11-09-2022 History of Present illness Narrative Radiology [...] 2022 2:59 PM documented in this encounter [facility] 11-09-2022 History of Present illness Narrative Images from the original note were not included. Rheumatology Outpatient Clinic Date of Service: 11/09/2022 Patient: Yamile Rose Medical Record: [id number] Primary Care Physician: Aleksander Jimenez MD Referring [...] was being followed by local rheumatology in [place], but her daughter wanted her to get a 2nd opinion at [facility]. Seen by Dr. Livingston in 05/2018 Her local rheum added methotrexate which she started after her visit here in 05/2018 She was following with sustainability purchasing agent at [place] however her insurance will know more cover the sustainability purchasing agent in [place] so she came back to [facility]. Patient reports pain over MCPs, PIPs, wrists, [...] Macular degeneration 07/27/2010 Normal coronary arteries 07/2010 [facility] performed for evaluation chest pain, abnormal stress test UTI (urinary tract infection) 07/27/2010 Past Surgical History PAST SURGICAL HISTORY Procedure Laterality Date CARPAL TUNNEL HYSTERECTOMY HX 1992 LIG/TRNSXJ FLP TUBE ABDL/VAG APPR UNI/BI in the OVARIAN CYSTECTOMY in the 80's Allergy ALLERGIES Allergen Reactions Cefuroxime Hives Family [...] Full ROM in flexion and extension. 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 synovitis along the right long MCP, [...] which included preparing to see the patient, [id number] patient care, completing clinical documentation, obtaining and/or reviewing separately obtained history, performing a medically appropriate examination, counseling and educating the patient/family/caregiver, and ordering medications, tests, or procedures. Harish Marshall MD, [facility] Rheumatology documented in this encounter [facility] Evaluation + Plan note Future Appointments Appointment Date:04/10/2023 01:40:00 PM Scheduled Provider:Navjot KAYE, Julee Byers Location:[facility] Appointment Type: Open [facility] Diff 01/09/23Comprehensive Metabolic Panel 01/09/23Lipid Panel 01/09/23TSH With T4fr Reflex 01/09/2319DteU5x 01/09/23Microalbumin Level Urine 01/09/23U Protein/Creat Ratio 01/09/23 [facility] Evaluation note No assessment inform ation available [facility] Work Phone: Evaluation note Diagnosis Rheumatoid arthritis involving multiple sites with positive rheumatoid factor (HCC)- Primary [facility] Rheumatoid arthritis involving multiple sites with positive rheumatoid factor (HCC)- Primary Encounter for long-term (current) use of medications Encounter for long-term (current) use of other medications [facility] Diagnosis Rheumatoid arthritis involving multiple sites with positive rheumatoid factor (HCC)- Primary Encounter for long-term (current) use of medications Encounter for long-term (current) use of other medications Thoracic back pain, unspecified back pain laterality, unspecified chronicity [facility] Diagnosis Thoracic back pain, unspecified back pain laterality, unspecified chronicity [facility] Diagnosis Rheumatoid arthritis involving multiple sites with positive rheumatoid factor (HCC)- Primary Osteopenia of multiple sites Encounter for long-term (current) use of medications Encounter for long-term (current) use of other medications Change in voice Other voice and resonance disorders Toenail fungus Dermatophytosis of nail documented in this encounter [facility] course Narrative No data available for this section [facility] Discharge instructions Additional Instructions POST CATARACT SURGERY [...] worsening of your eyesight. Please call your doctor of veterinary medicine during normal business hours. If after business hours call Dr. Balwinder Hankins at his cell [phone] or his office [phone].[facility] Work Phone: Hospital Discharge instructions No data available for this section [facility] No data available for this section [facility] ([facility] Diagnostic Procedure Only (Routine) - Closed Specialty Diagnoses / Procedures Referred By Contac t Referred To Contact XR IMAGING Diagnoses Rheumatoid arthritis involving multiple sites with positive rheumatoid factor (HCC) Procedures XR HAND GENERAL 3V PA/LAT/OBL BILATERAL RADEX HAND MINIMUM 3 VIEWS Harish Marshall MD [address] [place] [address] Xr Imaging Referral ID Status Reason Start Date Expiration Date V isits Requested Visits Authorized [id number] Closed Auto-Generate d Referral 11/09/2022 12/09/2023 1 1 * Diagnostic Procedure Only (Routine) - Closed Specialty Diagnoses / Procedures Referred By Contac t Referred To Contact XR IMAGING Diagnoses Rheumatoid arthritis involving multiple sites with positive rheumatoid factor (HCC) Procedures XR FOOT GENERAL 3V AP/LAT/OBL BILATERAL RADEX FOOT COMPLETE MINIMUM 3 VIEWS Harish Marshall MD [address] [place] [address] Xr Imaging Referral ID Status Reason Start Date Expiration Date V isits Requested Visits Authorized [id number] Closed Auto-Generate d Referral 11/09/2022 12/09/2023 1 1 [facility] for referral (narrative)* Diagnostic Procedure Only (Routine) - Closed Specialty Diagnoses / Procedures Referred By Noé sousa Referred To Contact XR IMAGING Diagnoses Thoracic back pain, unspecified back pain laterality, unspecified chronicity Procedures XR THORACIC GENERAL 3V AP/LAT/SWIMMERS RADEX SPINE THORACIC 3 VIEWS Harish Marshall MD [address] [id number] [place] [address] Referral ID Status Reason Start Date Expiration Date V isits Requested Visits Authorized [id number] Closed Auto-Generate d Referral 05/10/2023 06/08/2024 1 1 * Physical Therapy (Routine) - Pending Review Specialty Diagnoses / Procedures Referred By Noé sousa Referred To Contact [facility] Diagnoses Rheumatoid arthritis involving multiple sites with positive rheumatoid factor (HCC) Encounter for long-term (current) use of medications Procedures CONSULT TO PHYSICAL THERAPY PHYSICAL THERAPY EVALUATION HIGH COMPLEX 45 MINS Harish Marshall MD [address] [id number] [facility] [place] [address] [id number] Referral ID Status Reason Start Date Expiration Date Visits Requested Visits Authorized [id number] Pending Review Auto-Generat ed Referral 05/09/2024 1 1 [facility] for referral (narrative)* Diagnostic Procedure Only (Routine) - Closed Specialty Diagnoses / Procedures Referred By Noé sousa Referred To Contact XR IMAGING Diagnoses Thoracic back pain, unspecified back pain laterality, unspecified chronicity Procedures XR THORACIC GENERAL 3V AP/LAT/SWIMMERS RADEX SPINE THORACIC 3 VIEWS Harish Marshall MD [address] [place] [address] Xr Imaging [facility] Referral ID Status Reason Start Date Expiration Date V isits Requested Visits Authorized [id number] Closed Auto-Generate d Referral 05/10/2023 06/08/2024 1 1 [facility]* Diagnostic Procedure Only (Routine) - Closed Specialty Diagnoses / Procedures Referred By Noé sousa Referred To Contact XR IMAGING Diagnoses Thoracic back pain, unspecified back pain laterality, unspecified chronicity Procedures XR THORACIC GENERAL 3V AP/LAT/SWIMMERS RADEX SPINE THORACIC 3 VIEWS Harish Marshall MD [address] [place] [address] Xr Imaging [place] [address] Referral ID Status Reason Start Date Expiration Date V isits Requested Visits Authorized [id number] Closed Auto-Generate d Referral 05/10/2023 06/08/2024 1 1 [facility] Chief Complaint and Reason for Visit Chief [...] Directives No January 08 11:24am Summary Purpose Reason for Referral Specialty Diagnoses / Procedures Referred By Noé sousa Referred To Contact Ent - Otolaryngology Diagnoses Change in voice Procedures CONSULT TO ENT OFFICE/OUTPATIENT [facility] 60 MINUTES Harish Marshall MD [address] [place] [address] Referral ID Status Reason Start Date Expiration Date Visits Requested Visits Authorized [id number] Authorized PCP Requested Referral 11/15/2023 11/14/2024 1 1 Specialty Diagnoses / Procedures Referred By Noé sousa Referred To Contact Podiatry Diagnoses Toenail fungus Procedures CONSULT TO PODIATRY OFFICE/OUTPATIENT [facility] 60 MINUTES Harish Marshall MD [address] [place] [address] Referral ID Status Reason Start Date Expiration Date Visits Requested Visits Authorized [id number] Authorized PCP Requested Referral 11/15/2023 11/14/2024 1 1 Additional Source Comments Care Teams (unrecognized sec tion and content) Team Status: Inactive Member Role Status Dates Aleksander Jimenez MD Primary Care Provider Active Balwinder Hankins MD Attending Provider Active Team Status: Active Member Role Status Dates Aleksander Jimenez MD Primary Care Provider Active 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 Specialty Start Date End Date Aleksander Jimenez MD [address] [place] [address] PCP - General Family Medicine 07/27/10 Alida Bernardo MD [address] [place] [address] Primary Staff Physician Cardiology 10/09/18 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 Specialty Start Date End Date Aleksander Jimenez MD [address] [place] [address] PCP - General Family Medicine 07/27/10 Alida Bernardo MD [address] [place] [address] Primary Staff Physician Cardiology 10/09/18 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 Specialty Start Date End Date Aleksander Jimenez MD [address] [place] [address] PCP - General Family Medicine 07/27/10 Alida Bernardo MD [address] [place] [address] Primary Staff Physician Cardiology 10/09/18 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 Specialty Start Date End Date Aleksander Jimenez MD [address] [place] [address] PCP - General Family Medicine 07/27/10 Alida Bernardo MD [address] [place] [address] Primary Staff Physician Cardiology 10/09/18 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 Specialty Start Date End Date Aleksander Jimenez MD [address] [place] [address] PCP - General Family Medicine 07/27/10 Alida Bernardo MD [address] [place] [address] Primary Staff Physician Cardiology 10/09/18 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 Specialty Start Date End Date Aleksander Jimenez MD [address] [place] [id number] PCP - General Family Medicine 07/27/10 Alida Bernardo MD [address] [place] [address] [id number] Primary Staff Physician Cardiology 10/09/18 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 Specialty Start Date End Date Julee De Los Santos MD [address] [place] [id number] PCP - General Family Medicine 12/22/22 Alida Bernardo MD [address] [place] [phone] Primary Staff Physician Cardiology 10/09/18 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 Specialty Start Date End Date Julee De Los Santos MD [address] [place] [phone] PCP - General Family Medicine 12/22/22 Alida Bernardo MD [address] [place] [address] Primary Staff Physician Cardiology 10/09/18 Goals (unrecognized section and content) Goals may be documented in a n alternate section No data available for this section No data available for this section INFORMATION SOURCE (unrecogn ized section and content) DATE CREATED AUTHOR 07/17/2022 [facility] DATE CREATED AUTHOR AUTHOR'S ORGANIZ ATION 10/02/2022 [facility] DATE CREATED AUTHOR AUTHOR'S ORGANIZ ATION 11/19/[address] [facility] DATE CREATED AUTHOR AUTHOR'S ORGANIZ ATION 12/20/2023 [facility] DATE CREATED AUTHOR AUTHOR'S ORGANIZ ATION 12/30/2023 [facility] EPIC Source Comments (unrecognize d section and content) In the event this informatio n is protected by the Federal Confidentiality of Alcohol and Drug Abuse Patient Records regulations: The Federal rules restrict any use of the information to criminally investigate or prosecute any alcohol or drug abuse patient.[facility] the event this information is protected by the Federal Confidentiality of Alcohol and Drug Abuse Patient Records regulations: The Federal rules restrict any use of the information to criminally investigate or prosecute any alcohol or drug abuse patient.[facility] the event this information is protected by the Federal Confidentiality of Alcohol and Drug Abuse Patient Records regulations: The Federal rules restrict any use of the information to criminally investigate or prosecute any alcohol or drug abuse patient.[facility] the event this information is protected by the Federal Confidentiality of Alcohol and Drug Abuse Patient Records regulations: The Federal rules restrict any use of the information to criminally investigate or prosecute any alcohol or drug abuse patient.[facility] the event this information is protected by the Federal Confidentiality of Alcohol and Drug Abuse Patient Records regulations: The Federal rules restrict any use of the information to criminally investigate or prosecute any alcohol or drug abuse patient.[facility] the event this information is protected by the Federal Confidentiality of Alcohol and Drug Abuse Patient Records regulations: The Federal rules restrict any use of the information to criminally investigate or prosecute any alcohol or drug abuse patient.[facility] the event this information is protected by the Federal Confidentiality of Alcohol and Drug Abuse Patient Records regulations: The Federal rules restrict any use of the information to criminally investigate or prosecute any alcohol or drug abuse patient.[facility] the event this information is protected by the Federal Confidentiality of Alcohol and Drug Abuse Patient Records regulations: The Federal rules restrict any use of the information to criminally investigate or prosecute any alcohol or drug abuse patient.[facility] Reason for Visit (unrecogniz ed section and content) Reason Comments Consult Reason Comments Radiology XR Reason Comments Follow Up Reason Comments Follow Up Pain Ongoing generalized pain. Refill Request Reason Comments Results Reason Comments Pain intermittent shootin g pain to right thumb X 2 monthslower back pain radiates down right leg-getting worse-10/10 intermittentlypain to middle [id number] 10/10 FOR RECORDS PERTAINING TO PATIENTS WHO ARE [...] BE BASED ON THE PRIMARY CLINICAL RECORDS. [facility]. provides no warranty or guarantee of the accuracy or completeness of information in this document.
--- NOTE | 2024-01-06 17:55 | ED.UPPEXIN1 ---
HPI HPI - Extremity Injury (Upper) General Chief Complaint: Extremity Injury, Upper Stated Complaint: upper extremity injury, feels like passing out Time Seen by Provider: 01/06/24 17:49 Source: patient Mode of arrival: Wheelchair Limitations: no limitations History of Present Illness HPI narrative: Patient is a 68-year-old female with a history of rheumatoid arthritis and previous carpal tunnel surgery who presents to the emergency department for sudden onset of left wrist pain radiating into the left hand. She states she was gardening yesterday and was gardening again today when she developed the pain. She is concerned that she broke her wrist. She had no falls or direct injury to the wrist. Tylenol taken prior to arrival. She has no numbness or tingling to the hand. There has been no swelling, redness or warmth. No open wounds or drainage. Related Data Home Medications ?Medication ?Instructions ?Recorded ?Confirmed acetaminophen 325 mg tablet (Pain 650 mg PO .8HR PRN fever or pain 01/06/24 01/06/24 Relief (acetaminophen)) atorvastatin 20 mg tablet 20 mg PO DAILY 01/06/24 01/06/24 cholecalciferol (vitamin D3) 25 1,000 unit PO DAILY 01/06/24 01/06/24 mcg (1,000 unit) tablet (Vitamin D3) metformin 850 mg tablet 850 mg PO BID 01/06/24 01/06/24 methotrexate sodium 2.5 mg tablet 20 mg PO .WEEKLY 01/06/24 01/06/24 prednisolone 5 mg tablet 5 mg PO DAILY PRN inflammation 01/06/24 01/06/24 semaglutide 0.25 mg or 0.5 mg (2 0.5 mg subcut .WEEKLY 01/06/24 01/06/24 mg/3 mL) subcutaneous pen injector (Ozempic) Previous Rx's ?Medication ?Instructions ?Recorded hydrocodone 5 mg-acetaminophen 325 1 tab PO Q6H PRN pain 3 days #12 01/06/24 mg tablet tabs Allergies Allergy/AdvReac Type Severity Reaction Status Date / Time Unable to Assess Allergy Verified 01/06/24 17:52 Opioid HPI Opioid Management Most Recent Pain and Opioid Data: Last Pain Scale 10 01/06/24 18:13 Last MAR Pain Assessment 01/06/24 18:13 Review of Systems ROS Constitutional Denies: fever or chills Ears, nose, mouth, and throat Denies: throat pain or nasal congestion Respiratory Denies: shortness of breath Gastrointestinal Denies: nausea or vomiting Musculoskeletal Denies: back pain or neck pain Integumentary/Breast Denies: rash Neurological Denies: headache Hematologic/Lymphatic Denies: easy bruising or easy bleeding Exam Narrative Exam Narrative: Gen.: Awake, alert, in no distress Head: Normocephalic, atraumatic ENT: Moist mucous membranes Respiratory: No respiratory distress Extremities: Diffuse tenderness of the left hand and left wrist with no appreciable swelling, redness or warmth. No fluctuance of the joint. Patient is unwilling to flex and extend at the left wrist, 2+ left radial pulse. No obvious deformity. Normal sensation to the fingertips, Patient is able to wiggle the fingertips Psych: Normal mood and affect Neuro: No focal neuro deficit Skin: Warm, dry, intact Constitutional Vital Signs, click to edit/add: Last Vital Signs Temp 97.5 F L 01/06/24 17:45 Pulse 64 01/06/24 19:15 Resp 18 01/06/24 19:15 BP 129/79 01/06/24 19:15 Pulse Ox 97 01/06/24 19:15 O2 Del Method Room Air 01/06/24 19:15 Course Vital Signs Vital signs: Vital Signs Temperature 97.5 F L 01/06/24 17:45 Pulse Rate 72 01/06/24 17:45 Respiratory Rate 18 01/06/24 17:45 Blood Pressure 147/86 H 01/06/24 17:45 Pulse Oximetry 100 01/06/24 17:45 Oxygen Delivery Method Room Air 01/06/24 17:45 Temperature 97.5 F L 01/06/24 17:45 Pulse Rate 64 01/06/24 19:15 Respiratory Rate 18 01/06/24 19:15 Blood Pressure 129/79 01/06/24 19:15 Pulse Oximetry 97 01/06/24 19:15 Oxygen Delivery Method Room Air 01/06/24 19:15 MDM - Extremity Injury (Upper) MDM Narrative Medical decision making narrative: X-rays of the left hand and wrist are unremarkable and the patient was placed in an Alphonso wrap, neurovascularly intact. Rest, ice, elevate. Follow-up with PCP and return to the ER if symptoms change or worsen Medical Records Attestation: I reviewed the patient's medical records. Imaging Data xr wrist: Attestation: I have reviewed the pertinent imaging results. Radiologist's impression: ITS Impressions Hand X-Ray 01/06/24 17:53 IMPRESSION: Negative left hand and left wrist. Electronically authenticated by: CAPRICE ALMANZAR Date: 01/06/2024 19:11 Wrist X-Ray 01/06/24 17:53 IMPRESSION: Negative left hand and left wrist. Electronically authenticated by: CAPRICE ALMANZAR Date: 01/06/2024 19:11 Discharge Plan Discharge Stand Alone Forms: Portal Instructions Chief Complaint: Extremity Injury, Upper Clinical Impression: Acute pain of left wrist, Left hand pain Patient Disposition: Home, Self-Care Time of Disposition Decision: 19:32 Condition: Good Prescriptions / Home Meds: New hydrocodone-acetaminophen 5-325 mg tablet 1 tab PO Q6H PRN (Reason: pain) 3 Days Qty: 12 0RF Rx Instructions: DX: M25.532 No Action methotrexate sodium 2.5 mg tablet 20 mg PO .WEEKLY prednisolone 5 mg tablet 5 mg PO DAILY PRN (Reason: inflammation) metformin 850 mg tablet 850 mg PO BID atorvastatin 20 mg tablet 20 mg PO DAILY acetaminophen [Pain Relief (acetaminophen)] 325 mg tablet 650 mg PO .8HR PRN (Reason: fever or pain) Ozempic 0.25 mg or 0.5 mg (2 mg/3 mL) pen injector 0.5 mg SUBCUT .WEEKLY cholecalciferol (vitamin D3) [Vitamin D3] 25 mcg (1,000 unit) tablet 1,000 unit PO DAILY Print Language: Martiniquais Instructions: Arthralgia (ED) Referrals: JULEE DE LOS SANTOS [Primary Care Provider] - 1 week
[2024-01-06] MEDS: OXYCODONE HCL/ACETAMINOPHEN 5MG/325MG 1 TAB PO (18:11)
[2024-01-06] MEDS: METHYLPREDNISOLONE SOD SUCC PF 125 MG/2 ML VIAL IM (18:13)
[2024-01-06] MEDS: KETOROLAC TROMETHAMINE 30 MG/ML VIAL IM (18:13)
[2024-01-06 19:15] VITALS: BP 129/79; PULSE 64; O2SAT 97
== END 2024-01-06 19:48 | disposition home or self-care (01) ==
PROVIDERS: Emergency Provider Student in an Organized Health Care Education/Training Program; PCP Family Medicine
DX: M25.532 Pain in left wrist (principal); M79.642 Pain in left hand; M06.9 Rheumatoid arthritis, unspecified
CPT/HCPCS: 73110; 73130; 96372; 99284; J1885; J2919

== ENCOUNTER 2024-03-28 12:09 | Outpatient (RCR) | payer OTHER, MEDICAID, SELFPAY | END 2024-04-16 13:44 | disposition home or self-care (01) | LOC: PT 12:09 | PROVIDERS: PCP Family Medicine; Visit Provider Family Medicine | DX: M25.552 Pain in left hip (principal); E66.3 Overweight; Z87.891 Personal history of nicotine dependence; M54.50 Low back pain, unspecified | CPT/HCPCS: 97014; 97110; 97112; 97162 ==

== ENCOUNTER 2024-05-06 12:32 | Outpatient (OUT) | payer OTHER, MEDICAID, SELFPAY ==
--- NOTE | 2024-05-06 | XR_ITS ---
The [address] [address] Patient Name: FAYE ROSE MRN: [id number] date: 1955 Sex: F Assigned Patient Location: Current Patient Location: Accession/Order Number: [id number] Exam Date: 05/06/2024 13:35 Report Date: 05/07/2024 08:24 At the request of: SABINE CALDERÓN Procedure: XR hip LT 2V w/ pelvis PROCEDURE: XR hip LT 2V w/ pelvis COMPARISON: None. HISTORY: LEFT HIP AND PELVIS PAIN FINDINGS: BONES:No acute fracture or dislocation. Mild bilateral hip osteoarthropathy with marginal osteophyte formation. Moderate degenerative changes of the spine SOFT TISSUES:Negative. No visible soft tissue swelling. EFFUSION:None visible. OTHER: Negative. XR/XR hip LT 2V w/ pelvis IMPRESSION: Mild bilateral hip osteoarthritis Electronically authenticated by: PRICILA MARROQUIN Date: 05/07/2024 08:24
== END 2024-05-06 12:33 | disposition home or self-care (01) ==
LOC: EC 12:33
PROVIDERS: PCP Family Medicine; Visit Provider Student in an Organized Health Care Education/Training Program
DX: M25.552 Pain in left hip (principal); M16.0 Bilateral primary osteoarthritis of hip
CPT/HCPCS: 73502

== ENCOUNTER 2024-06-17 14:17 | Outpatient (OUT) | payer OTHER, MEDICAID, SELFPAY ==
--- NOTE | 2024-06-17 | XR_ITS ---
The [address] [address] Patient Name: FAYE ROSE MRN: [id number] date: 1955 Sex: F Assigned Patient Location: Current Patient Location: MRI Accession/Order Number: [id number] Exam Date: 06/17/2024 14:23 Report Date: 06/19/2024 15:36 At the request of: SABINE CALDERÓN Procedure: XR lumbar spine min 4V EXAMINATION: XR lumbar spine min 4V HISTORY: LUMBAR SPINE PAIN COMPARISON: XR L-spine 12/08/2015 FINDINGS: BONES: Mild grade 1 anterolisthesis of L5 on S1; no change in alignment in flexion and extension. Normal height of the vertebral bodies; no fracture or bone lesion. Multilevel moderate degenerative facet arthropathy. DISC SPACES: Slight narrowing L5-S1. PARASPINOUS: Negative. No paraspinous abnormality is seen. OTHER: Negative. XR/XR lumbar spine min 4V IMPRESSION: 1. Mild degenerative changes; progressed since prior study. Electronically authenticated by: MIRIAM MEJIA Date: 06/19/2024 15:36
== END 2024-06-17 14:18 | disposition home or self-care (01) ==
LOC: EC 14:18
PROVIDERS: PCP Family Medicine; Visit Provider Student in an Organized Health Care Education/Training Program
DX: M53.3 Sacrococcygeal disorders, not elsewhere classified (principal)
CPT/HCPCS: 72110

== ENCOUNTER 2024-07-02 12:11 | Outpatient (OUT) | payer OTHER, MEDICAID, SELFPAY ==
--- NOTE | 2024-07-02 12:20 | MR_ITS ---
The [address] [address] Patient Name: FAYE ROSE MRN: [facility]:[id number] date: 1955 Sex: F Assigned Patient Location: MRI Current Patient Location: Accession/Order Number: [id number] Exam Date: 07/02/2024 12:25 Report Date: 07/03/2024 07:50 At the request of: SABINE CALDERÓN Procedure: MR lumbar spine wo con EXAMINATION: MR lumbar spine wo con HISTORY: M53.3 sacroiliac pain COMPARISON: No relevant comparison available. TECHNIQUE: A variety of imaging planes and parameters were utilized for visualization of suspected pathology. FINDINGS: For the purposes of numbering, sagittal T2 image # 8 extends from the T11 vertebral body superiorly to the S3 level inferiorly. PARASPINAL AREA: Normal with no visible mass. BONES: Normal alignment with no acute fracture, dislocation or bone edema. Mild to moderate degenerative spondylosis and facet osteoarthropathy CORD/CAUDA EQUINA: Normal caliber, contour, and signal intensity. DISC LEVELS: 12-L1: No significant disc/facet abnormality, spinal stenosis, or foraminal stenosis. L1-L2: No significant disc/facet abnormality, spinal stenosis, or foraminal stenosis. L2-L3: No significant disc/facet abnormality, spinal stenosis, or foraminal stenosis. L3-L4: Mild disc desiccation. Minimal diffuse disc bulge with facet osteoarthropathy. No central canal or foraminal stenosis L4-L5: Mild posterior disc protrusion. Facet osteoarthropathy. Mild trefoil narrowing of the central canal. Minimal right and mild to moderate left foraminal stenosis L5-S1: 2 mm anterolisthesis of L5 on S1 with pseudobulge. No central or foraminal stenosis MR/MR lumbar spine wo con IMPRESSION: Mild degenerative changes most significant at L4-L5 where there is minimal right and mild to moderate left foraminal Electronically authenticated by: PRICILA MARROQUIN Date: 07/03/2024 07:50
== END 2024-07-02 12:12 | disposition home or self-care (01) ==
LOC: MRI 12:11
PROVIDERS: PCP Family Medicine; Visit Provider Student in an Organized Health Care Education/Training Program
DX: M53.3 Sacrococcygeal disorders, not elsewhere classified (principal); M51.369 Other intervertebral disc degeneration, lumbar region without mention of lumbar back pain or lower extremity pain
CPT/HCPCS: 72148

== ENCOUNTER 2024-10-17 12:44 | Outpatient (OUT) | payer OTHER, MEDICAID, SELFPAY ==
--- NOTE | 2024-10-17 12:48 | CT_ITS ---
The [address] [address] Patient Name: FAYE ROSE MRN: [id number] date: 1955 Sex: F Assigned Patient Location: MAMMO Current Patient Location: [facility] Accession/Order Number: [id number] Exam Date: 10/17/2024 14:19 Report Date: 10/17/2024 14:25 At the request of: JULEE DE LOS SANTOS Procedure: CT lung screening low-dose CT Chest screening low-dose without contrast TECHNIQUE: Axial imaging with 2-D reconstruction. The CT exam was performed using one or more the following dose reduction techniques: Automated exposure control, adjustment of the MA and/or Kv according to patient size, or use of the iterative reconstruction technique. History: Lung cancer screening. Former smoker. Smoked for 45 years. COMPARISON: None THYROID: Unremarkable TRACHEA AND BRONCHI: Patent ESOPHAGUS: Unremarkable. HEART: Within normal limits PERICARDIAL EFFUSION: Trace CORONARY ARTERY CALCIFICATION: None MEDIASTINUM: No adenopathy. No pneumoperitoneum. No mediastinal hematoma. PULMONARY PAUL: No hilar mass or adenopathy is seen. THORACIC AORTA Unremarkable LUNG NODULE 3 mm apical left upper lobe lung nodule is seen with lung window imaging #33. 4 mm fissural nodule on the left seen with image #44. 3 mm nodular density in the right middle lobe laterally seen with image #96. LUNGS: Lungs are clear PLEURAL EFFUSION: None PNEUMOTHORAX: No pneumothorax seen. CHEST WALL: No abnormality AXILLA:Unremarkable BONY STRUCTURES Intact UPPER ABDOMEN: Images of the upper abdomen are noncontributory. CT/CT lung screening low-dose IMPRESSION: Small less than 4 mm bilateral lung nodules. These are probably benign. FINAL ASSESSMENT: Benign behavior/findings Lung-RADS Version 1.0 Assessment Category: 2 REMARKS: Continued annual screening with LDCT in 12 months is recommended. Impression dictated by: Brown Hayward M.D.10/17/2024 2:25 PM Dictation Location: [place] [address] Electronically authenticated by: [id number] Y Date: 10/17/2024 14:25
--- NOTE | 2024-10-17 12:48 | MM_ITS ---
Patient Name: FAYE ROSE MR#: [id number] : 1955 Exam Date: 10/17/2024 Ordering Doctor: DR. JULEE DE LOS SANTOS . RADIOLOGY REPORT PROCEDURE: MM TOMOSYNTHESIS SCREENING BI COMPARISON: MM TOMOSYNTHESIS SCREENING BI, 09/25/2023. MG MAMM SCREEN 3D KATE CAD, 09/13/2022. MG MAMM SCREEN KATE W CAD, 09/25/2020. MG MAMM KATE SCRN W CAD DIG, 10/09/2002. INDICATIONS: screening for malignant neoplasm of breast Calculator Name [facility] Breast Cancer Risk Assessment Tool 5 Year Breast Cancer Risk 0.80% Lifetime Breast Cancer Risk 2.90% Personal Breast Cancer No Personal Ovarian Cancer No Treatments None Family Cancers Mother with bladder cancer at age 57; Father with liver cancer at age 77. LOCATION: The [facility] BREAST COMPOSITION: There are scattered areas of fibroglandular density. FINDINGS: RIGHT BREAST: No significant suspicious finding. LEFT BREAST: No significant suspicious finding. DIAGNOSTIC CATEGORY 1--NEGATIVE. RECOMMENDATIONS: ROUTINE MAMMOGRAM AND CLINICAL EVALUATION IN 12 MONTHS. PLEASE NOTE: A NORMAL MAMMOGRAM DOES NOT EXCLUDE THE POSSIBILITY OF BREAST CANCER. A CLINICALLY SUSPICIOUS PALPABLE LUMP SHOULD BE BIOPSIED. Dictated by: Brown Hayward DO on 10/17/2024 at 15:02 Approved by: Brown Hayward DO on 10/17/2024 at 15:04
== END 2024-10-17 12:45 | disposition home or self-care (01) ==
LOC: MAMMO 12:44
PROVIDERS: PCP Family Medicine; Visit Provider Family Medicine
DX: Z12.31 Encounter for screening mammogram for malignant neoplasm of breast (principal); R91.8 Other nonspecific abnormal finding of lung field; Z80.52 Family history of malignant neoplasm of bladder; Z80.8 Family history of malignant neoplasm of other organs or systems; Z87.891 Personal history of nicotine dependence; F17.200 Nicotine dependence, unspecified, uncomplicated
CPT/HCPCS: 71271; 77063; 77067

== ENCOUNTER 2025-02-13 11:35 | Emergency (ER) | payer OTHER, MEDICAID, SELFPAY ==
[2025-02-13 11:42] VITALS: BP 139/78; PULSE 69; TEMP 36.6; O2SAT 97; BMI 24.9
[2025-02-13 12:03] LABS: Glucose Urine UA NEGATIVE (NEGATIVE)
--- NOTE | 2025-02-13 12:03 | ED.GENADUL1 ---
HPI HPI - General Adult General Chief complaint: Urogenital-Female Stated complaint: uti complaints Time Seen by Provider: 02/13/25 11:42 Source: patient Mode of arrival: walk-in Limitations: no limitations History of Present Illness HPI narrative: This 69-year-old female presents with a 4-day history of urinary urgency, frequency and dysuria. She does not report chills or fever, nausea or vomiting. She has chronic back pain and there has not been any worsening of those symptoms. She reports lower abdominal discomfort and denies diarrhea or bloody stool. Patient also states she has had some cough and congestion and usually when she gets that way she uses an inhaler which helps. She would like a prescription for an inhaler also. Related Data Home Medications ?Medication ?Instructions ?Recorded ?Confirmed acetaminophen 325 mg tablet (Pain 650 mg PO .8HR PRN fever or pain 01/06/24 01/06/24 Relief (acetaminophen)) atorvastatin 20 mg tablet 20 mg PO DAILY 01/06/24 01/06/24 cholecalciferol (vitamin D3) 25 1,000 unit PO DAILY 01/06/24 01/06/24 mcg (1,000 unit) tablet (Vitamin D3) metformin 850 mg tablet 850 mg PO BID 01/06/24 01/06/24 methotrexate sodium 2.5 mg tablet 20 mg PO .WEEKLY 01/06/24 01/06/24 prednisolone 5 mg tablet 5 mg PO DAILY PRN inflammation 01/06/24 01/06/24 semaglutide 0.25 mg or 0.5 mg (2 0.5 mg subcut .WEEKLY 01/06/24 01/06/24 mg/3 mL) subcutaneous pen injector (Ozempic) Previous Rx's ?Medication ?Instructions ?Recorded hydrocodone 5 mg-acetaminophen 325 1 tab PO Q6H PRN pain 3 days #12 01/06/24 mg tablet tabs albuterol sulfate 90 mcg/actuation 2 inh inhalation Q6H PRN shortness 02/13/25 aerosol inhaler of breath or wheezing #8.5 grams nitrofurantoin 100 mg PO BID 5 days #10 caps 02/13/25 monohydrate/macrocrystals 100 mg capsule (Macrobid) Allergies Allergy/AdvReac Type Severity Reaction Status Date / Time cefuroxime (From Ceftin) Allergy Mild Hives Verified 02/13/25 11:48 Opioid HPI Opioid Management Most Recent Opioid Data: Last Pain Scale 10 01/06/24, 18:13 Review of Systems ROS Status of ROS 10 or more systems reviewed and unremarkable except as noted in history and below PFSH [facility] Social History Little interest or pleasure in doing things: not at all Feeling down, depressed, or hopeless: not at all Exam Narrative Exam Narrative: Afebrile and nondistressed. Vital signs are stable. HEENT exam is normal to inspection. Neck is supple. Lung sounds are clear to auscultation bilaterally. Heart has regular rate and rhythm. Abdomen soft with mild tenderness over the suprapubic region but without guarding or peritoneal signs. No masses are felt. Lower extremities are warm and dry. Constitutional Vital Signs, click to edit/add: Last Vital Signs Temp 98 F 02/13/25 11:42 Pulse 69 02/13/25 11:42 Resp 18 02/13/25 11:42 BP 139/78 02/13/25 11:42 Pulse Ox 97 02/13/25 11:42 O2 Del Method Room Air 02/13/25 11:42 Course Vital Signs Vital signs: Vital Signs Temperature 98 F 02/13/25 11:42 Pulse Rate 69 02/13/25 11:42 Respiratory Rate 18 02/13/25 11:42 Blood Pressure 139/78 02/13/25 11:42 Pulse Oximetry 97 02/13/25 11:42 Oxygen Delivery Method Room Air 02/13/25 11:42 Temperature 98 F 02/13/25 11:42 Pulse Rate 69 02/13/25 11:42 Respiratory Rate 18 02/13/25 11:42 Blood Pressure 139/78 02/13/25 11:42 Pulse Oximetry 97 02/13/25 11:42 Oxygen Delivery Method Room Air 02/13/25 11:42 Medical Decision Making [facility] Narrative Medical decision making narrative: Urinalysis is consistent with infection and will be cultured. Patient is placed on Macrobid for this. She is also provided a prescription for albuterol inhaler. Follow-up as advised with the PCP and she may return anytime for worsening symptoms. Lab Data Labs: Lab Results 02/13/25 Range/Units 11:42 Urine Color Lt. yellow (YELLOW) Urine Clarity Sl cloudy (CLEAR) Urine pH 6.0 (5.0-9.0) Ur Specific [place] 1.025 (1.005-1.025) Urine Protein 100 A (NEG/TRACE) mg/dL Urine Glucose (UA) Negative (NEGATIVE) mg/dL Urine Ketones Negative (NEGATIVE) mg/dL Urine Occult Blood Large A (NEGATIVE) Urine Nitrite Positive A (NEGATIVE) Urine Bilirubin Negative (NEGATIVE) Urine Urobilinogen 0.2 (0.2-1.0) EU/dL Ur Leukocyte Esterase Moderate A (NEGATIVE) Urine RBC 10-20 A (0-2) #/HPF Urine WBC 50-75 A (NONE SEEN) #/HPF Ur Squamous Epith Cells Rare (NONE/RARE) #/LPF Urine Crystals None seen (None Seen) #/HPF Urine Bacteria Large A (NONE SEEN) #/HPF Urine Casts None seen (NONE SEEN) #/LPF Urine Mucus Trace A (NONE SEEN) Ur [place] Indicated[place] [place] Discharge Chief Complaint: Urogenital-Female Clinical Impression: Acute cystitis Qualifiers: Hematuria presence: without hematuria Qualified Code(s): N30.00 - Acute cystitis without hematuria URI (upper respiratory infection) Qualifiers: URI type: unspecified URI Qualified Code(s): J06.9 - Acute upper respiratory infection, unspecified Patient Disposition: Home, Self-Care Time of Disposition Decision: 12:54 Condition: Good Mode of Transportation: Private Vehicle Prescriptions / Home Meds: New albuterol sulfate 90 mcg/actuation HFA aerosol inhaler 2 inh inhalation Q6H PRN (Reason: shortness of breath or wheezing) Qty: 8.5 0RF nitrofurantoin monohyd/m-cryst [Macrobid] 100 mg capsule 100 mg PO BID 5 Days Qty: 10 0RF Rx Instructions: must administer with a meal/food No Action methotrexate sodium 2.5 mg tablet 20 mg PO .WEEKLY prednisolone 5 mg tablet 5 mg PO DAILY PRN (Reason: inflammation) metformin 850 mg tablet 850 mg PO BID atorvastatin 20 mg tablet 20 mg PO DAILY acetaminophen [Pain Relief (acetaminophen)] 325 mg tablet 650 mg PO .8HR PRN (Reason: fever or pain) Ozempic 0.25 mg or 0.5 mg (2 mg/3 mL) pen injector 0.5 mg SUBCUT .WEEKLY cholecalciferol (vitamin D3) [Vitamin D3] 25 mcg (1,000 unit) tablet 1,000 unit PO DAILY hydrocodone-acetaminophen 5-325 mg tablet 1 tab PO Q6H PRN (Reason: pain) 3 Days Qty: 12 0RF Rx Instructions: DX: M25.532 Print Language: Tristanian Instructions: Urinary Tract Infection in Women (ED), Wheezing (ED) Additional Instructions: Follow-up with PCP in the next 3 to 5 days. Return for worsening symptoms. Referrals: MIKE GUILLEN [Primary Care Provider, [facility]] - 1 week Discharge Date/Time: 02/13/25 13:00
[2025-02-13 12:20] LABS: Cast Seen? NONE SEEN #/LPF (NONE SEEN); Crystals Seen? None Seen #/HPF (None Seen)
[2025-02-13 12:21] LABS: Urine Culture Indicated YES-FRMC
== END 2025-02-13 13:00 | disposition home or self-care (01) ==
PROVIDERS: Emergency Provider Emergency Medicine; PCP Nurse Practitioner
DX: N30.00 Acute cystitis without hematuria (principal); J06.9 Acute upper respiratory infection, unspecified
CPT/HCPCS: 81001; 87086; 87088; 87186; 99283

== ENCOUNTER 2025-03-21 12:37 | Outpatient (OUT) | payer OTHER, MEDICAID, SELFPAY ==
--- NOTE | 2025-03-21 12:47 | CT_ITS ---
The [address] [address] Patient Name: FAYE ROSE MRN: [id number] date: 1955 Sex: F Assigned Patient Location: CT Current Patient Location: CT Accession/Order Number: [id number] Exam Date: 03/21/2025 12:50 Report Date: 03/21/2025 13:15 At the request of: MIKE GUILELN Procedure: CT head/brain wo con CT BRAIN WITHOUT CONTRAST: CLINICAL HISTORY: unsteadiness on feet and worsening frontal headaches. COMPARISON: None TECHNIQUE: Contiguous axial unenhanced images were obtained through the brain. This CT exam was performed using one or more following dose reduction techniques: Automated exposure control, adjustment of the mA and/or kV according to patient size, or use of iterative reconstruction technique. FINDINGS: There is mild frontoparietal cortical atrophy. The ventricles are normal in size and position. There are no significant areas of abnormal attenuation. There is no hemorrhage, mass effect or extra-axial collections. The imaged paranasal sinuses and mastoid air cells are clear. CT/CT head/brain wo con IMPRESSION: CORTICAL ATROPHY. NO ACUTE INTRACRANIAL ABNORMALITY. Impression dictated by: Shante Clemons M.D. 03/21/2025 1:15 PM Dictation Location: [place] [address] Electronically authenticated by: [id number] Y Date: 03/21/2025 13:15
--- OUTSIDE RECORDS SUMMARY | 2025-03-21 12:50 | XMS_ITS | CCD ---
Author Organization [facility] Care Team Providers Care 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 Name Role Phone MD Aleksander Jimenez Primary Care Provider MD Balwinder Hankins Attending Provider EVELYN, DR MADISON Ghotra Consulting Unavailabl e EVELYN, DR MADISON Ghotra Admitting Unavailabl e JIMENEZ ., DR ALEKSANDER Johnson Primary Care Unavailable EVELYN, DR MADISON Ghotra Attending Unavailabl MARGE Lema Consulting Unavailable JIMENEZ ., DR ALEKSANDER Johnson [...] EVELYN, DR MADISON Ghotra Consulting Unavailabl e EVELYN, DR MADISON Ghotra Admitting Unavailabl e JIMENEZ ., DR ALEKSANDER Johnson Primary Care Unavailable EVELYN, DR MADISON Ghotra Attending Unavailabl e ZICRISS, DR MIRIAM Clark Consulting Unavailable Aleksander Jimenez MD Primary Care Provider Alida Bernardo MD Unavailable Julee De Los Santos. Primary Care Physician Alida Bernardo MD Unavailable Julee De Los Santos MD Primary Care Provider Julee De Los Santos MD Primary Care Provider YESSY OAKES Attending Unavailable YESSY OAKES Attending Unavailable YESSY OAKES Attending Unavailable Aleksander Jimenez MD Primary Care Provider Julee De Los Santos MD Primary Care Provider [phone] Ashwin Patton MD, Patrick Unavailable Unavailabl e Ashwin Patton MD, Patrick Unavailable Unavailabl e Navjot Julee E. Admitting Unavailable Navjot Julee E. Attending Unavailable Navjot Julee E. Attending Unavailable Navjot, Julee E. Attending Unavailable Navjot Julee E. Attending Unavailable Julee De Los Santos E. Attending Unavailable Julee De Los Santos E. Attending Unavailable Navjot Julee E. Attending Unavailable Kofi De Los Santosuel E. Attending Unavailable Julee De Los Santos EMayra Attending Unavailable Navjot Julee E. Attending Unavailable Corporate MD, Doctor Unavailable Unavailable Ashwin Patton MD, Patrick Unavailable Unavailabl e Ashwin Patton MD, Patrick Unavailable Unavailabl e Ashwin Patton MD, Patrick Unavailable Unavailabl e Linda KAYE, Zurdo Attending Provider Zurdo Mckeon Attending Unavailable Zurdo Mckeon Admitting Unavailable Yfn KAYE, PhD, David Unavailable Jamal Coulter MD, PhD, David Unavailable Jamal pimentel CHAI, HARISH Referring Unavailable ROSS, JULEE E Primary Care Unavailable CHAI, HARISH Referring Unavailable ROSS, JULEE E Primary Care Unavailable CHAI, HARISH Attending Unavailable ROSS, JULEE E Primary Care Unavailable RED, YUERONG Referring Unavailable CHAI, HARISH Attending Unavailable ROSS, JULEE E Primary Care Unavailable RED, YUERONG Referring Unavailable CHAI, HARISH Referring Unavailable ROSS, JULEE E Primary Care Unavailable CHAI, HARISH Attending Unavailable ROSS, JULEE E Primary Care Unavailable CHAI, HARISH Referring Unavailable ROSS, JULEE E Primary Care Unavailable MANOHAR MCDOWELL Attending Unavailable ROSS, JULEE E Primary Care Unavailable ROSS, JULEE E Primary Care Unavailable CHAI, HARISH Attending Unavailable Silvia Cuevas Admitting Unavailable FaithSilvia lara Attending Unavailable Faith, Silvia L Attending Unavailable Julee De Los Santos Attending Unavailable Julee De Los Santos Attending Unavailable Julee De Los Santos Attending Unavailable Julee De Los Santos Attending Unavailable Julee De Los Santos Attending Unavailable Silvia Cuevas Attending Unavailable Julee De Los Santos Attending Unavailable Silvia Cuevas Admitting Unavailable Faith, Silvia Covington Attending Unavailable Julee De Los Santos Admitting Unavailable Julee De Los Santos Attending Unavailable Al Shweiki, Patrick Attending Unavailable Al Shweiki, Patrick Referring Unavailable Al Shweiki, Patrick Attending Unavailable Al Shweiki, Patrick Referring Unavailable Al Shweiki, Patrick Attending Unavailable Al Shweiki, Patrick Referring Unavailable Corporate, Doctor Attending Unavailable Coulter, David Clark Attending Unavailable CoulterDavid richradson Referring Unavailable Al Shweiki, Patrick Attending Unavailable Al Shweiki, Patrick Referring Unavailable Al Shweiki, Patrick Attending Unavailable Al Shweiki, Patrick Referring Unavailable Al Shweiki, Patrick Attending Unavailable Al Shweiki, Patrick Referring Unavailable Al Shweiki, Patrick Attending Unavailable Al Shweiki, Patrick Referring Unavailable Al Shweiki, Patrick Attending Unavailable Al Shweiki, Patrick Referring Unavailable Al Shweiki, Patrick Attending Unavailable Corporate, Doctor Attending Unavailable Al Shweiki, Patrick Attending Unavailable Al Shweiki, Patrick Referring Unavailable Al Shweiki, Patrick Attending Unavailable Al Shweiki, Patrick Referring Unavailable Allergies Allergy Classification Reported Allergen(s) Allergy Type Date of Onset Reaction(s) Facility (20 sources) Cefuroxime; Translations: [cefuroxime] Drug Allergy 2 Hives, Unknown (qualifier value) [facility] (1 source) Cefuroxime Drug Allergy 2 [facility] (9 sources) Phenylephrine; Translations: [PHENYLEPHRINE HCL] Drug Allergy 5 Rash, Itching [facility] (5 sources) Cefuroxime; Translations: [CEFUROXIME AXETIL] Drug Allergy 5 [facility] (5 sources) cocoa butter; Translations: [cocoa butter] Drug Allergy 5 [facility] (5 sources) Glycerin; Translations: [GLYCERIN] Drug Allergy 5 [facility] (5 sources) Mineral Oil; Translations: [MINERAL OIL] Drug Allergy 5 [facility] (5 sources) Shark liver oil; Translations: [shark liver oil] Drug Allergy 5 [facility] (5 sources) petrolatum,white ; Translations: [petrolatum,whit e] drug allergy 5 [facility] Medications Current Medications Medication Drug Class(es) Dates Sig (Normalized) Sig (Original) 0.25 MG, 0.5 MG Dose 3 ML semaglutide 0.68 MG/ML Pen Injector (3 sources) Start: 02-20-2024 inject 0.5 mg by subcutaneous injection every week semaglutide 2 mg/3 mL (0.25 mg or 0.5 mg dose) subcutaneous solution 0.5 mg, SubCutaneous, qWeek, # 4 EA, Refills(s) 6, Pharmacy: [facility], 168, cm, 02/20/24 13:59:00 EDT, Height/Length Dosing, 75.4, kg, 02/20/24 13:59:00 EDT, Weight Dosing Start Date: 02/20/24 Status: Ordered Start: 09-15-2023 semaglutide 2 mg/3 mL (0.25 mg or 0.5 mg dose) subcutaneous solution 0.25 mg, SubCutaneous, qWeek, increase to 0.5 mg after 4 weeks, # 4 EA, Refills(s) 6, Pharmacy: [facility], 169, cm, 09/15/23 10:48:00 EST, Height/Length Dosing, 77, kg, 09/15/23 10:48:00 EST, Weight Dosing Start Date: 09/15/23 Status: Ordered 3 ML semaglutide 1.34 MG/ML Pen Injector [Ozempic] (8 sources) Ozempic 1 mg/dos e (4 mg/3 mL) subcutaneous pen injector inject 0.5 by subcutaneous route every week on the same day of each week - Active acetaminophen 650 mg oral tablet (15 sources) Start: 07-11-2023 take 650 mg by mouth every eight hours as needed for pain Tylenol 650 mg, Oral, q8hr, PRN as needed for pain, Refills(s) 0 Start Date: 07/11/23 Status: Ordered Tylenol Arthriti s Pain 650 mg tablet,extended release [id number] - Active Albuterol (Eqv-ProAir HFA) 90 mcg/inh inhalation aerosol (2 sources) Start: 07-19-2023 take 2 puff(s) by inhalation every six hours Albuterol (Eqv-ProAir HFA) 90 mcg/inh inhalation aerosol 2 puff(s), Inhalation, q6hr, 8.5 gm, Refill(s) 0, [facility], 169, cm, 07/19/23 13:15:00 EST, Height/Length Dosing, 75.1, kg, 07/19/23 13:15:00 EST, Weight Dosing Start Date: 07/19/23 Status: Ordered atorvastatin 20 mg oral tablet (20 sources) HMG-CoA Reductase Inhibitor Start: 11-23-2018 take 1 tablet by mouth at bedtime atorvastatin (LIPITOR) 20 mg tablet 1 PO at bedtime 11/08/2022 Active Comment on above: 1 PO at bedtime azelastine hydrochloride 0.137 mg/actuat metered dose nasal spray (10 sources) Histamine-1 Receptor Antagonist Start: 02-20-2024 azelastine hydrochloride 137 mcg spray = 1 spray(s), Nasal, BID, Refills(s) 0 Start Date: 02/20/24 Status: Ordered Start: 02-07-2024 take 1 spray(s) nasa l route twice daily azelastine 0.1% nasal spray Use 1 [place] in each nostril two times a day. 30 mL 3 02/07/2024 Active baclofen 10 mg oral tablet (4 sources) gamma-Aminobutyric Acid-ergic Agonist Start: 05-02-2018 End: 11-09-2022 take 1 tablet by mouth once daily as needed for muscle spasms Comment on above: Take 10 mg by mouth daily at bedtime. 4 ml bevacizumab 25 mg/ml injection (8 sources) Vascular Endothelial Growth Factor Inhibitor Start: 09-13-2024 Avastin 25 mg/mL intravenous solution Direct Patient Administration Only - Active Start: 2023 Avastin 25 mg/ mL intravenous solution direct patient administration only - Active cholecalciferol 0.025 mg oral tablet (5 sources) Vitamin D take 1 tablet by mouth once daily cholecalciferol (Vitamin D-3) 25 MCG tablet Take 25 mcg by mouth Daily Active End: 11-09-2022 Cholecalciferol, Vitamin D3, 50 mcg (2,000 unit) cap Take by mouth once daily. 0 11/09/2022 Discontinued (Course of therapy completed) Comment on above: Take by mouth once d aily. fluticasone propionate 0.05 mg/actuat metered dose nasal spray (10 sources) Corticosteroid Start: 02-20-2024 fluticasone Nasal 0.05 mg/inh [place] 2 spray(s), Nasal, Daily, 16 gram, Refill(s) 0, each nostril Start Date: 02/20/24 Status: Ordered Start: 02-07-2024 take 1 spray(s) nasa l route twice daily fluticasone (FLONASE ALLERGY RELIEF) 50 mcg/actuation nasal spray Use 1 [place] in each nostril two times a day. 48 g 3 02/07/2024 Active folic acid 1 mg oral tablet (20 sources) Start: 09-11-2023 take 2 mg by mouth once daily folic acid 2 mg, Oral, Daily, Refills(s) 0 Start Date: 09/11/23 Status: Ordered Start: 08-16-2023 End: 02-19-2025 take 2 tablets by mouth once daily folic acid 1 mg tablet Take 2 tablets by mouth once daily. 180 tablet 3 02/19/2025 Active Start: 02-08-2023 End: 05-10-2023 take 2 tablets by mouth once daily folic acid 1 mg tablet Take 2 tablets by mouth once daily. 60 tablet 3 05/10/2023 Active Start: 11-23-2018 End: 02-08-2023 take 1 tablet by mouth once daily in the morning End: 11-09-2022 FOLIC ACID ORAL Take by mout h once daily. 0 11/09/2022 Discontinued Comment on above: Take 1 tablet by romi th once daily. Take by mouth once d aily. Take 2 tablets by mo uth once daily. glipiZIDE 5 mg oral tablet (4 sources) Sulfonylurea Start: 11-23-2018 Start: 11-23-2018 Glipizide Acti ve 2.5 MG PO As Directed November 22, 2018 11:00pm Start: 04-26-2018 End: 11-09-2022 take 1 tablet by mouth once daily in the morning glipiZIDE (GLUCOTROL) 5 mg tablet Take 5 mg by mouth every morning. 5 04/26/2018 11/09/2022 Discontinued (Course of therapy completed) Comment on above: Take 5 mg by mouth e very morning. Handicap placard (3 sources) Start: 06-26-20 Handicap placard Handicap placard, See Instructions, 1 EA, 0, Duration 5 years, Supply Start Date: 06/26/23 Status: Ordered hydrocortisone 25 mg/ml topical cream (1 source) Corticosteroid Start: 09-03-19 Proctozone-HC 2.5% topical cream 1 aleah, Topical, TID, 454 gm, Refill(s) 0, [facility], 168, cm, 09/03/24 13:02:00 EST, Height/Length Dosing, 74.1, kg, 09/03/24 13:02:00 EST, Weight Dosing Start Date: 09/03/24 Status: Ordered levoFLOXacin 500 mg oral tablet (1 source) Quinolone Antimicrobial Start: 09-11-19 End: 09-21-19 take 1 tablet by mouth every twenty-four hours levofloxacin 500 mg Tab 500 mg = 1 tab(s), Oral, q24hr, X 10 day(s), # 10 tab(s), Refills(s) 0, Pharmacy: [facility], 169, cm, 09/11/23 11:22:00 EST, Height/Length Dosing, 75.9, kg, 09/11/23 11:20:00 EST, Weight Dosing Start Date: 09/11/23 Stop Date: 09/21/23 Status: Ordered metFORMIN hydrochloride 850 mg oral tablet (20 sources) Biguanide Start: 11-24-19 take 1 tablet by mouth twice daily Start: 04-26-2018 take 1 tablet by rmoi th once daily at breakfast metFORMIN (GLUCOPHAGE) 850 mg tablet TAKE 1 TABLET BY MOUTH DAILY WITH BREAKFAST & supper 11 04/26/2018 Active Comment on above: TAKE 1 TABLET BY ROMI TH DAILY WITH BREAKFAST & supper methotrexate 2.5 mg oral tablet (20 sources) Folate Analog Metabolic Inhibitor Start: End: take 8 tablets by mouth every week methotrexate 2.5 mg tablet Take 8 tablets by mouth one time a week. 96 tablet 1 02/19/2025 Active Start: 01-09-2023 methotrexate 2 .5 mg Tab 20 mg = 8 tab(s), Oral, q7day, # 4 tab(s), Refills(s) 0 Start Date: 01/09/23 Status: Ordered Start: 11-09-2022 End: 05-10-2023 take 8 tablets by mouth every week methotrexate 2.5 mg tablet Take 8 tablets by mouth one time a week. 32 tablet 3 05/10/2023 Active Start: 06-24-2022 Start: 06-24-2022 take 16 mg by mouth every week Methotrexate Sodium Active 16 MG PO every week June 24, 2022 12:00am End: 11-09-2022 take 1 tablet by mouth every week methotrexate sodium 2.5 mg tablet take 1 tablet by oral route every week 2.5 MG - Active Comment on above: Take 8 tablets by mo uth one time a week. Take 2.5 mg by mouth one time only. Pt takes 6 tablets by mouth every Monday OZEMPIC 1 mg/dose (4 mg/3 mL) pen (1 source) Start: 02-18-2025 OZEMPIC 1 mg/dose (4 mg/3 mL) pen Inject 1 mg subcutaneously. 02/18/2025 Active predniSONE 5 mg oral tablet (20 sources) Start: 06-24-2022 End: 02-19-2025 predniSONE (DELTASONE) 5 mg tablet Take 1 tablet by mouth as needed. Take 1 tablet by mouth daily as needed 30 tablet 3 02/19/2025 Active take 1 tablet by romi th once daily as needed for pain prednisone 2.5 mg tablet take 1 tablet b y oral route every day as needed for pain/swelling 2.5 MG - Active Comment on above: Take 1 tablet by romi th as needed. Take 1 tablet by mouth daily as needed Prednisone Active 5 MG PO As Directed June 24, 2022 12:00am Semaglutide (OZEMPIC, 0.25 OR 0.5 MG/DOSE, SC) (4 sources) Semaglutide (OZEMPIC, 0.25 OR 0.5 MG/DOSE, SC) Inject under the skin Active sertraline 50 mg oral tablet (4 sources) Serotonin Reuptake Inhibitor Start: End: take 1 tablet by mouth once daily in the morning Comment on above: Take 50 mg by [...] on above: take one tablet rodrigue y ciclopirox (5 sources) Start: 11-20-2023 [place] Nail Lacquer 8% topical solution 1 aleah, Topical, Daily, 9.9 mL, Refill(s) 0, [facility], 168, cm, 11/20/23 10:51:00 EDT, Height/Length Dosing, 75.3, kg, 11/20/23 10:51:00 EDT, Weight Dosing Start Date: 11/20/23 Status: Ordered ciclopirox (Penl ac) 8 % solution Apply topically at bedtime Active dicyclomine hydrochloride 20 mg oral tablet (3 sources) Anticholinergic Start: 11-23-2018 End: 06-24-2022 take 1 tablet by mouth four times daily as needed Dicyclomine 20 mg tablet Discontinued 20 MG PO Four times daily as needed for abdominal discomfort 14 November 23, 2018 12:00am June 24, 2022 12:10pm DULoxetine 20 mg delayed release oral capsule (4 sources) Serotonin and Norepinephrine Reuptake Inhibitor Start: 11-23-2018 End: 06-24-2022 Duloxetine 20 mg capsule,delayed release(DR/EC) Discontinued November 23, 2018 12:00am June 24, 2022 12:10pm Start: 05-02-2018 End: 11-09-2022 Duloxetine Discontinued November 22, 2018 11:00pm June 24, 2022 11:10am Comment on above: Take 20 mg by mouth every morning. naproxen 500 mg oral tablet (1 source) Nonsteroidal Anti-inflammatory Drug Start: 018 End: 04-19-2 023 take 1 tablet by mouth every twelve [...] food. ondansetron 4 mg disintegrating oral tablet (3 sources) Serotonin-3 Receptor Antagonist Start: 019 End: take 1 tablet by mouth every six hours as needed for nausea and vomiting Ondansetron 4 mg tablet,disintegrating Discontinued 4 MG PO Q6H as needed for nausea and vomiting November 23, 2018 12:00am June 24, 2022 12:13pm PARoxetine hydrochloride 10 mg oral tablet (1 source) Serotonin Reuptake Inhibitor Start: 011 End: PARoxetine (PAXIL) 10 mg tablet Take one(1) tablet daily. 90 Tab 0 07/27/2010 11/09/2022 Discontinued (Course of therapy completed) Comment on above: Take one(1) tablet d aily. 0.25 mg, 0.5 mg dose 1.5 ml semaglutide 1.34 mg/ml pen injector (19 sources) Start: End: OZEMPIC 0.25 mg or 0.5 mg(2 mg/1.5 mL) pen INJECT 0.5 mg SUBCUTANEOUSLY EVERY WEEK 0 09/29/2022 Active Start: 06-24-2022 Comment on above: INJECT 0.5 mg SUBCUT ANEOUSLY EVERY WEEK TENs unit (1 source) Start: 04-15-2024 TENs unit TENs unit, See Instructions, 1 EA, 0, Please use TENs unit as per PT to help with pain., Supply Start Date: 04/15/24 Status: Ordered Problems Active Problems Problem Classification Problem Date Documented Da te Episodic/Chronic Abdominal pain (3 sources) Abdominal pain; Translations: [Unspecified abdominal pain] 11-23-2018 Episodic Acquired foot deformities (2 sources) Hammer toe; Translations: [Other hammer toe(s) (acquired), right foot] 03-12-2024 Chronic Anxiety disorders (3 sources) Mixed anxiety and depressive disorder 07-11-2023 Chronic Asthma (1 source) Unspecified asthma, uncomplicated; Translations: [UNSPECIFIED ASTHMA UNCOMPLICATED] Onset: 11-29-2021 Chronic Blindness and vision defects (6 sources) Blind right eye, normal vision left eye; Translations: [Visual impairment] Onset: 01-09-2023 01-09-2023 Chronic 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 Cataract (20 sources) Combined forms of age-related cataract, right eye; Translations: [Presence of intraocular lens] Onset: 03-27-2024 Chronic Diabetes mellitus with complications (10 sources) Type 2 diabetes mellitus with diabetic polyneuropathy; Translations: [Type 2 diabetes mellitus with hyperglycemia] Onset: 12-28-2021 Chronic Diabetes mellitus without complication (20 sources) Type 2 diabetes mellitus without complications; Translations: [Type 2 diabetes mellitus without complication] Onset: 11-29-2021 Chronic Disorders of lipid metabolism (20 sources) Pure hypercholesterolemia , unspecified; Translations: [Hyperlipidemia] Onset: 07-27-2010 07-27-2010 Chronic Headache; including migraine (4 sources) Migraine 12-02-2022 Chronic Hemorrhoids (1 source) Hemorrhoids 09-03-2024 Episodic Inflammation; infection of eye (except that caused by tuberculosis or sexually transmitteddisease) (1 source) External hordeolum 10-09-2023 Episodic Mycoses (5 sources) Onychomycosis of toenails; Translations: [Tinea unguium] 11-15-2023 Episodic Nausea and vomiting (3 sources) Nausea and vomiting; Translations: [Nausea with vomiting, unspecified] 11-23-2018 Episodic Nutritional deficiencies (4 sources) Vitamin D deficiency 12-02-2022 Chronic Osteoarthritis (18 sources) Arthritis; Translations: [Unspecified osteoarthritis, unspecified site] Onset: 07-27-2010 07-27-2010 Chronic Osteoporosis (2 sources) Osteoporosis 12-02-2022 Chronic Other aftercare (3 sources) Patient encounter status; Translations: [Other ad terminal makeup operator (current) drug therapy] 02-08-2023 Episodic Other aftercare (4 sources) Long-term current use of drug therapy; Translations: [Other [place] [facility] drug therapy] 03-20-2024 Episodic Other and unspecified benign neoplasm (4 sources) Polyp of colon; Translations: [Polyp of colon] 01-09-2023 Episodic Other bone disease and musculoskeletal deformities (4 sources) Osteopenia; Translations: [Other specified disorders of bone density and structure, multiple sites] 11-15-2023 Episodic Other bone disease and musculoskeletal deformities (1 source) Other specified disorders of bone density and structure, multiple sites; Translations: [Osteopenia of multiple sites] Onset: 02-19-2025 Episodic Other connective tissue disease (4 sources) Fibromyalgia 12-02-2022 Episodic Other eye disorders (20 sources) Vitreous degeneration, right eye Chronic Other eye disorders (8 sources) 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), right eye Chronic Other eye disorders (20 sources) Other macular scars Chronic Other eye disorders (20 sources) Vitreous degeneration Chronic Other lower respiratory disease (1 source) Cough 07-19-2023 Episodic Other lower respiratory disease (2 sources) Wheezing 07-11-2023 Episodic Other nervous system disorders (4 sources) Carpal tunnel syndrome 12-02-2022 Chronic Other non-traumatic joint disorders (4 sources) Disorder of shoulder 12-02-2022 Episodic Other non-traumatic joint disorders (1 source) Hip pain 03-18-2024 Episodic Other nutritional; endocrine; and metabolic disorders (1 source) Obesity, unspecified; Translations: [OBESITY UNSPECIFIED] Onset: 10-01-2022 Chronic Other nutritional; endocrine; and metabolic disorders (1 source) Body mass index 25-29 - overweight 09-03-2024 Episodic Other nutritional; endocrine; and metabolic disorders (1 source) Overweight in adulthood with body mass index of 25 or more but less than 30 09-03-2024 Episodic Other screening for suspected conditions (not mental disorders or infectious disease) (4 sources) Encounter for screening mammogram for malignant neoplasm of breast; Translations: [ENC SCR MAMMO MALIG NEOPLASM BREAST] Onset: 09-13-2022 Episodic Other upper respiratory disease (2 sources) Allergic disposition; Translations: [Other allergic rhinitis] 02-07-2024 Chronic Other upper respiratory disease (2 sources) Nasal congestion 07-19-2023 Episodic Other upper respiratory disease (4 sources) Change in voice; Translations: [Unspecified voice and resonance disorder] 11-15-2023 Episodic Other upper respiratory disease (2 sources) Hoarse; Translations: [Dysphonia] 02-07-2024 Episodic Other upper respiratory infections (2 sources) Sinusitis 07-11-2023 Chronic Other upper respiratory infections (2 sources) Posterior rhinorrhea; Translations: [Postnasal drip] 02-07-2024 Episodic Residual codes; unclassified (1 source) Family history of malignant neoplasm of bladder; Translations: [FAM HX MALIGNANT NEOPLASM BLADDER] Onset: 09-17-2022 Episodic Residual codes; unclassified (1 source) Family history of malignant neoplasm of other organs or systems; Translations: [FAM HX MALIG NEOPLASM OTH ORGN/SYS] Onset: 09-17-2022 Episodic Retinal detachments; defects; vascular occlusion; and retinopathy (20 sources) Degenerative disorder of macula ; Translations: [Unspecified macular degeneration] Onset: 01-26-2023 Resolved: 02-08-2024 07-27-2010 Chronic Rheumatoid arthritis and related disease (20 sources) Rheumatoid arthritis, unspecified; Translations: [Rheumatoid arthritis with rheumatoid factor of multiple sites without organ or systems involvement] Onset: 05-29-2018 Chronic Screening and history of mental health and substance abuse codes (1 source) Ex-smoker 09-03-2024 Episodic Spondylosis; intervertebral disc disorders; other back problems (8 sources) Degenerative lumbar spinal stenosis; Translations: [Thoracic back pain] 12-02-2022 Episodic Unclassified (3 sources) History of surgical procedure on mouth 04-10-2023 Unclassified (2 sources) Patient encounter status 09-15-2023 Past or Other Problems Problem Classification Problem Date Documented Date Episodic/Chronic Allergic reactions (1 source) Generalized skin eruption due to drugs and medicaments taken internally; Translations: [GEN SKN ERUPT D/T RX TAKE INTERNALY] Onset: 2 Episodic Chronic obstructive pulmonary disease and bronchiectasis (17 sources) Bronchitis; Translations: [Bronchitis, not specified as acute or chronic] Onset: 1 07-27-2010 Episodic E Codes: Adverse effects of medical drugs (1 source) Adverse effect of cephalosporins and other beta-lactam antibiotics, initial encounter; Translations: [ADVERS EFF CEPHALOSPOR OTH JOSE CRUZ INIT] Onset: 2 Episodic Nonspecific chest pain (4 sources) Chest pain, unspecified; Translations: [Other chest pain] Onset: 2 Episodic Other aftercare (2 sources) Other [place] [facility] (current) drug therapy; Translations: [OTH REPTILE FARMER CURRENT DRUG THERAPY] Onset: 2 Episodic Other aftercare (1 source) longterm (current) use of oral hypoglycemic drugs; Translations: [REPTILE FARMER USE ORAL HYPOGLYCEMIC DX] Onset: 2 Episodic Other circulatory disease (1 source) Personal history of transient ischemic attack (TIA), and cerebral infarction without residual deficits; Translations: [PERS HX TIA AND CI NO RESID DEFICIT] Onset: 2 Episodic Other lower respiratory disease (1 source) Personal history of pneumonia (recurrent); Translations: [PERSONAL HX OF PNEUMONIA RECURRENT] Onset: 2 Episodic Other skin disorders (3 sources) Rash and other nonspecific skin eruption; Translations: [RASH OTH NONSPECIFIC SKIN ERUPTION] Onset: 2 Episodic Other skin disorders (2 sources) Acquired keratoderma; Translations: [Acquired keratosis [keratoderma] palmaris et plantaris] 03-12-2024 Episodic Residual codes; unclassified (17 sources) Tobacco user; Translations: [Tobacco use] Onset: 1 07-27-2010 Episodic Unclassified (20 sources) AMD (chief complaint) Onset: 4 Resolved: 5 Unclassified (8 sources) RNV (chief complaint) Onset: 4 Unclassified (16 sources) CNV (chief complaint) Onset: 4 Resolved: 4 Unclassified (8 sources) Retinal Neovascularization unspecified (chief complaint) Onset: 2 Unclassified (8 sources) Retinal neovascularization (chief complaint) Difficulty reading (chief complaint) Onset: 0 Unclassified (8 sources) retinal neovascularization (chief complaint) stable (chief complaint) Onset: 9 Unclassified (8 sources) retinal neovascularization (chief complaint) burning and tearing (chief complaint) Onset: 8 Unclassified (8 sources) retinal neovascularization (chief complaint) blurry vision (chief complaint) black floaters (chief complaint) Onset: 7 Unclassified (8 sources) POHS (chief complaint) decreased vision (chief complaint) Onset: 6 Unclassified (8 sources) retinal eval (chief complaint) flashing light (chief complaint) Onset: 5 Unclassified (8 sources) Macular Scars (chief complaint) Onset: 4 Unclassified (10 sources) Exudative ARMD (chief complaint) Onset: 5 Resolved: 5 Unclassified (2 sources) Vision decrease and wavy lines (chief complaint) Onset: 5 Urinary tract infections (17 sources) Urinary tract infectious disease; Translations: [Urinary tract infection, site not specified] Onset: 1 07-27-2010 Episodic Results Test Name Value Interpretation Reference Range Facil ity C Urineon 02-21-2025 Bacteria identified Cx Nom (U) Microbiology PROCEDURE: Urine Culture [R1] SOURCE: U CleanCatch BODY SITE: COLLECTED DATE/TIME: 02/18/2025 16:03 EDT RECEIVED DATE/TIME: 02/19/2025 18:45 EDT START DATE/TIME: 02/19/2025 18:45 EDT FREE TEXT SOURCE: Silvia Diaz Jodi L FINAL REPORTS Final Report [] Verified Date/Time: 02/21/2025 09:07 EDT No growth at 2 days. Performing Locations R1: This test was performed at: [facility], [address] [place] [address], [facility]- , , [facility] Comment on above: Performed By: #### 2 [id number] #### [facility] [address] [place] [address] Reminderson 02-21-2025 Reminders Reminders From: Silvia Diaz To: [facility] - Clinical; Sent: 02/21/2025 08:23:52 EDT Show up: 02/21/2025 08:24:00 EDT Subject: Ambulatory Reminder Due Date/Time: 02/22/2025 08:23:00 EDT HGBA1C is 6.1 Results: Date Result Name Ind Value Ref Range 02/18/2025 15:52 Hgb A1C % (H) 6.1 % ( - <=5.9) combined with other message. Normal [facility] [id number] 02-20-2025 HbA1c (Bld) [Mass fraction] 6.1 % High <=5.9 [facility] Comment on above: Performed By: #### 7 [id number] #### [facility] [address] [place] [address] Reminderson 02-20-2025 Reminders Reminders From: Silvia Diaz To: [facility] - Clinical; Sent: 02/20/2025 07:43:01 EDT Show up: 02/20/2025 07:43:00 EDT Subject: Ambulatory Reminder Due Date/Time: 02/21/2025 07:42:00 EDT labs look good Results: Date Result Name Ind Value Ref Range 02/18/2025 15:52 WBC 6.2 E9/L (4.0 - 11.0) 02/18/2025 15:52 RBC 4.9 E12/L (4.3 - 5.9) 02/18/2025 15:52 HGB 14.6 gm/dL (12.0 - 16.0) 02/18/2025 15:52 Hct 46.0 % (34.0 - 46.0) 02/18/2025 15:52 MCV 94.0 fL (80.0 - 100.0) 02/18/2025 15:52 MCH 29.9 pg (27.0 - 34.0) 02/18/2025 15:52 MCHC 31.8 gm/dL (31.4 - 36.0) 02/18/2025 15:52 RDW (H) 16.2 % (10.9 - 14.2) 02/18/2025 15:52 Platelet 220.0 E9/L (150.0 - 500.0) 02/18/2025 15:52 MPV 9.1 fL (6.4 - 10.8) 02/18/2025 15:52 Neutro Auto 61.4 % (36.0 - 75.0) 02/18/2025 15:52 Lymph Auto 29.3 % (14.0 - 50.0) 02/18/2025 15:52 [place] Auto 5.8 % (4.0 - 14.0) 02/18/2025 15:52 Eos Auto 2.2 % (0.0 - 8.0) 02/18/2025 15:52 Basophil Auto 1.3 % (0.0 - 2.0) 02/18/2025 15:52 Neutro Absolute 3.8 E9/L (2.0 - 7.5) 02/18/2025 15:52 Lymph Absolute 1.8 E9/L (1.0 - 4.0) 02/18/2025 15:52 [place] Absolute 0.4 E9/L (0.2 - 1.0) 02/18/2025 15:52 Eos Absolute 0.1 E9/L (0.0 - 0.5) 02/18/2025 15:52 Basophil Absolute 0.1 E9/L (0.0 - 0.2) 02/18/2025 15:52 Glucose Lvl 83 mg/dL (55 - 199) 02/18/2025 15:52 BUN 14 mg/dL (5 - 21) 02/18/2025 15:52 Creatinine 0.8 mg/dL (0.5 - 1.3) 02/18/2025 15:52 eGFR 80 mL/min/1.73 m2 (>=59 - ) 02/18/2025 15:52 BUN/Creat Ratio 18 (10 - 20) 02/18/2025 15:52 Sodium Lvl 139 mmol/L (135 - 145) 02/18/2025 15:52 Potassium Lvl 4.8 mmol/L (3.5 - 5.3) 02/18/2025 15:52 Chloride 107 mmol/L (101 - 111) 02/18/2025 15:52 CO2 25 mmol/L (21 - 31) 02/18/2025 15:52 AGAP 12 mEq/L (6 - 16) 02/18/2025 15:52 Calcium Lvl 9.4 mg/dL (8.9 - 11.1) 02/18/2025 15:52 Alk Phos 70 Int._Unit/L (21 - 98) 02/18/2025 15:52 ALT 14 Int._Unit/L (6 - 46) 02/18/2025 15:52 AST 22 Int._Unit/L (5 - 43) 02/18/2025 15:52 Total Protein 6.6 gm/dL (6.0 - 7.8) 02/18/2025 15:52 Albumin Lvl 4.1 gm/dL (3.3 - 5.0) 02/18/2025 15:52 Globulin 2.5 gm/dL (1.4 - 4.0) 02/18/2025 15:52 A/G Ratio 1.6 (1.1 - 2.2) 02/18/2025 15:52 Bili Total 0.7 mg/dL (0.0 - 1.1) 02/18/2025 15:52 Chol 156 mg/dL (120 - 200) 02/18/2025 15:52 Trig 60 mg/dL ( - <=149) 02/18/2025 15:52 HDL 64 mg/dL 02/18/2025 15:52 LDL Direct 89 mg/dL ( - <=129) 02/18/2025 15:52 VLDL 12 mg/dL (7 - 40) 02/18/2025 15:52 TSH 0.81 mcIU/mL (0.34 - 5.60) 02/18/2025 15:52 Vitamin D 25 Hydroxy 38.3 ng/mL (30.0 - 100.0) Pt has been notified. Normal [facility] ALT SerPl-cCncon 02-19-2025 ALT [Catalytic activity/Vol] 14 U/L Normal 7-38 [facility] Comment on above: Order Comment: Speci men Type: BLOOD SPECIMEN Ordering Facility: [facility] Address: [address] [place] [address] Performed By: #### 5 7021-8 #### [facility] CLIA [id number] [address] [place] [address] [place] AST SerPl-cCncon 02-19-2025 AST [Catalytic activity/Vol] 15 U/L Normal 13-35 [facility] Comment on above: Order Comment: Speci men Type: BLOOD SPECIMEN Ordering Facility: [facility] Address: [address] [place] [address] Performed By: #### 5 7021-8 #### [facility] CLIA [id number] [address] [place] [address] [place] [address] [place] Albumin SerPl-mCncon 025 Albumin [Mass/Vol] 3.8 g/dL Low 3.9-4.9 [facility] Comment on above: Order Comment: Speci men Type: BLOOD SPECIMEN Ordering Facility: [facility] Address: [address] [place] [address] Performed By: #### 5 7021-8 #### [facility] CLIA [id number] [address] [place] [address] [place] [address] [place] CBC W Auto Differential pane l (Bld)on 02-19-2025 Basophils (Bld) [#/Vol] 0.08 10*3/uL [facility] Basophils/100 WBC (Bld) 1.3 % [facility] Differential cell count method Nom (Bld) Auto [facility] Eosinophils (Bld) [#/Vol] 0.16 10*3/uL [facility] Eosinophils/100 WBC (Bld) 2.7 % [facility] Erythrocyte distribution width (RBC) [Ratio] 13.9 % 11.5 - 15.0 % [facility] Hematocrit (Bld) [Volume fraction] 43.9 % 36.0 - 46.0 % [facility] Hemoglobin (Bld) [Mass/Vol] 14.2 g/dL 11.5 - 15.5 g/dL [facility] Immature granulocytes (Bld) [#/Vol] NINF [facility] Immature granulocytes/100 WBC (Bld) 0.2 % [facility] Lymphocytes (Bld) [#/Vol] 1.27 10*3/uL [facility] Lymphocytes/100 WBC (Bld) 21.1 % [facility] MCH (RBC) [Entitic mass] 30.7 pg 26.0 - 34.0 pg [facility] MCHC (RBC) [Mass/Vol] 32.3 g/dL 30.5 - 36.0 g/dL [facility] MCV (RBC) [Entitic vol] 94.8 fL 80.0 - 100.0 fL [facility] Monocytes (Bld) [#/Vol] 0.46 10*3/uL NINF [facility] Monocytes/100 WBC (Bld) 7.7 % [facility] Neutrophils (Bld) [#/Vol] 4.03 10*3/uL [facility] Neutrophils/100 WBC (Bld) 67 % [facility] Nucleated RBC (Bld) [#/Vol] NINF [facility] Nucleated RBC/100 WBC (Bld) [Ratio] 0 % /100 WBC [facility] Platelet mean volume (Bld) [Entitic vol] 10.3 fL 9.0 - 12.7 fL [facility] Platelets (Bld) [#/Vol] 213 10*3/uL [facility] RBC (Bld) [#/Vol] 4.63 10*6/uL 3.90 - 5.2 0 m/uL [facility] WBC (Bld) [#/Vol] 6.01 10*3/uL [facility] Basophils (Bld) [#/Vol] 0.08 10*3/uL Normal <0.11 [facility] Comment on above: Order Comment: Speci men Type: BLOOD SPECIMEN Ordering Facility: [facility] Address: [address] [place] [address] Performed By: #### 5 7021-8 #### [facility] CLIA [id number] [address] [place] [address] [place] Basophils/100 WBC (Bld) 1.3 % Normal [facility] Comment on above: Order Comment: Speci men Type: BLOOD SPECIMEN Ordering Facility: [facility] Address: [address] [place] [address] Performed By: #### 5 7021-8 #### [facility] CLIA [id number] [address] [place] [address] [place] Differential cell count method Nom (Bld) Auto Normal [facility] Comment on above: Order Comment: Speci men Type: BLOOD SPECIMEN Ordering Facility: [facility] Address: [address] [place] [address] Performed By: #### 5 7021-8 #### [facility] CLIA [id number] [address] [place] [address] [place] Eosinophils (Bld) [#/Vol] 0.16 10*3/uL Normal <0.46 [facility] Comment on above: Order Comment: Speci men Type: BLOOD SPECIMEN Ordering Facility: [facility] Address: [address] [place] [address] Performed By: #### 5 7021-8 #### [facility] CLIA [id number] [address] [place] [address] [place] Eosinophils/100 WBC (Bld) 2.7 % Normal [facility] Comment on above: Order Comment: Speci men Type: BLOOD SPECIMEN Ordering Facility: [facility] Address: [address] [place] [address] Performed By: #### 5 7021-8 #### [facility] CLIA [id number] [address] [place] [address] [place] Erythrocyte distribution width (RBC) [Ratio] 13.9 % Normal 11.5-15.0 [facility] Comment on above: Order Comment: Speci men Type: BLOOD SPECIMEN Ordering Facility: [facility] Address: [address] [place] [address] Performed By: #### 5 7021-8 #### [facility] CLIA [id number] [address] [place] [address] [place] Hematocrit (Bld) [Volume fraction] 43.9 % Normal 36.0-46.0 [facility] Comment on above: Order Comment: Speci men Type: BLOOD SPECIMEN Ordering Facility: [facility] Address: [address] [place] [address] Performed By: #### 5 7021-8 #### [facility] CLIA [id number] [address] [place] [address] [place] Hemoglobin (Bld) [Mass/Vol] 14.2 g/dL Normal 11.5-15.5 [facility] Comment on above: Order Comment: Speci men Type: BLOOD SPECIMEN Ordering Facility: [facility] Address: [address] [place] [address] Performed By: #### 5 7021-8 #### [facility] CLIA [id number] [address] [place] [address] [place] Immature granulocytes (Bld) [#/Vol] 10*3/uL Normal <0.10 [facility] Comment on above: Order Comment: Speci men Type: BLOOD SPECIMEN Ordering Facility: [facility] Address: [address] [place] [address] Performed By: #### 5 7021-8 #### [facility] CLIA [id number] [address] [place] [address] [place] Immature granulocytes/100 WBC (Bld) 0.2 % Normal [facility] Comment on above: Order Comment: Speci men Type: BLOOD SPECIMEN Ordering Facility: [facility] Address: [address] [place] [address] Performed By: #### 5 7021-8 #### [facility] CLIA [id number] [address] [place] [address] [place] Lymphocytes (Bld) [#/Vol] 1.27 10*3/uL Normal 1.00-4.00 [facility] Comment on above: Order Comment: Speci men Type: BLOOD SPECIMEN Ordering Facility: [facility] Address: [address] [place] [address] Performed By: #### 5 7021-8 #### [facility] CLIA [id number] [address] [place] [address] [place] Lymphocytes/100 WBC (Bld) 21.1 % Normal [facility] Comment on above: Order Comment: Speci men Type: BLOOD SPECIMEN Ordering Facility: [facility] Address: [address] [place] [address] Performed By: #### 5 7021-8 #### [facility] CLIA [id number] [address] [place] [address] [place] MCH (RBC) [Entitic mass] 30.7 pg Normal 26.0-34.0 [facility] Comment on above: Order Comment: Speci men Type: BLOOD SPECIMEN Ordering Facility: [facility] Address: [address] [place] [address] Performed By: #### 5 7021-8 #### [facility] CLIA [id number] [address] [place] [address] [place] MCHC (RBC) [Mass/Vol] 32.3 g/dL Normal 30.5-36.0 [facility] Comment on above: Order Comment: Speci men Type: BLOOD SPECIMEN Ordering Facility: [facility] Address: [address] [place] [address] Performed By: #### 5 7021-8 #### [facility] CLIA [id number] [address] [place] [address] [place] MCV (RBC) [Entitic vol] 94.8 fL Normal 80.0-100.0 [facility] Comment on above: Order Comment: Speci men Type: BLOOD SPECIMEN Ordering Facility: [facility] Address: [address] [place] [address] Performed By: #### 5 7021-8 #### [facility] CLIA [id number] [address] [place] [address] [place] Monocytes (Bld) [#/Vol] 0.46 10*3/uL Normal <0.87 [facility] Comment on above: Order Comment: Speci men Type: BLOOD SPECIMEN Ordering Facility: [facility] Address: [address] [place] [address] Performed By: #### 5 7021-8 #### [facility] CLIA [id number] [address] [place] [address] [place] Monocytes/100 WBC (Bld) 7.7 % Normal [facility] Comment on above: Order Comment: Speci men Type: BLOOD SPECIMEN Ordering Facility: [facility] Address: [address] [place] [address] Performed By: #### 5 7021-8 #### [facility] CLIA [id number] [address] [place] [address] [place] Neutrophils (Bld) [#/Vol] 4.03 10*3/uL Normal 1.45-7.50 [facility] Comment on above: Order Comment: Speci men Type: BLOOD SPECIMEN Ordering Facility: [facility] Address: [address] [place] [address] Performed By: #### 5 7021-8 #### [facility] CLIA [id number] [address] [place] [address] [place] Neutrophils/100 WBC (Bld) 67.0 % Normal [facility] Comment on above: Order Comment: Speci men Type: BLOOD SPECIMEN Ordering Facility: [facility] Address: [address] [place] [address] Performed By: #### 5 7021-8 #### [facility] CLIA [id number] [address] [place] [address] [place] Nucleated RBC (Bld) [#/Vol] 10*3/uL Normal <0.01 [facility] Comment on above: Order Comment: Speci men Type: BLOOD SPECIMEN Ordering Facility: [facility] Address: [address] [place] [address] Performed By: #### 5 7021-8 #### [facility] CLIA [id number] [address] [place] [address] [place] Nucleated RBC/100 WBC (Bld) [Ratio] 0.0 /100 WBC Normal [facility] Comment on above: Order Comment: Speci men Type: BLOOD SPECIMEN Ordering Facility: [facility] Address: [address] [place] [address] Performed By: #### 5 7021-8 #### [facility] CLIA [id number] [address] [place], [place] [address] [place] Platelet mean volume (Bld) [Entitic vol] 10.3 fL Normal 9.0-12.7 [facility] Comment on above: Order Comment: Speci men Type: BLOOD SPECIMEN Ordering Facility: [facility] Address: [address] [place] [address] Performed By: #### 5 7021-8 #### [facility] CLIA [id number] [address] [place], [place] [address] [place] Platelets (Bld) [#/Vol] 213 10*3/uL Normal 150-400 [facility] Comment on above: Order Comment: Speci men Type: BLOOD SPECIMEN Ordering Facility: [facility] Address: [address] [place] [address] Performed By: #### 5 7021-8 #### [facility] CLIA [id number] [address] [place] [address] [place] RBC (Bld) [#/Vol] 4.63 10*6/uL Normal 3.90-5.[address] [facility] Comment on above: Order Comment: Speci men Type: BLOOD SPECIMEN Ordering Facility: [facility] Address: [address] [place] [address] Performed By: #### 5 7021-8 #### [facility] CLIA [id number] [address] [place], [place] [address] [place] WBC (Bld) [#/Vol] 6.01 10*3/uL Normal 3.70-11.[address] [facility] Comment on above: Order Comment: Speci men Type: BLOOD SPECIMEN Ordering Facility: [facility] Address: [address] [place] [address] Performed By: #### 5 7021-8 #### [facility] CLIA [id number] [address] [place], [place] [address] [employer] [place] [facility] CBC w/ Auto Diffon 5 Basophil Absolute 0.1 E9/L Normal 0.0-0.2 [facility] Comment on above: Performed By: #### 2 [id number] #### [facility] [address] [place] [address] Basophils/100 WBC (Bld) 1.3 % Normal 0.0-2.0 [facility] Comment on above: Performed By: #### 2 [id number] #### [facility] [address] [place] [address] Eos Absolute 0.1 E9/L Normal 0.0-0.5 [facility] Comment on above: Performed By: #### 2 [id number] #### [facility] [address] [place] [address] Eosinophils/100 WBC (Bld) 2.2 % Normal 0.0-8.0 [facility] Comment on above: Performed By: #### 2 [id number] #### [facility] [address] [place] [address] Erythrocyte distribution width (RBC) [Ratio] 16.2 % High 10.9-14.2 [facility] Comment on above: Performed By: #### 2 [id number] #### [facility] [address] [place] [address] Hematocrit (Bld) [Volume fraction] 46.0 % Normal 34.0-46.0 [facility] Comment on above: Performed By: #### 2 [id number] #### [facility] [address] [place] [address] Hemoglobin (Bld) [Mass/Vol] 14.6 g/dL Normal 12.0-16.0 [facility] Comment on above: Performed By: #### 2 [id number] #### [facility] [address] [place] [address] Lymph Absolute 1.8 E9/L Normal 1.0-4.0 [facility] Comment on above: Performed By: #### 2 407904 #### [facility] [address] [place] [address] Lymphocytes/100 WBC (Bld) 29.3 % Normal 14.0-50.0 [facility] Comment on above: Performed By: #### 2 575508 #### [facility] [address] [place] [address] MCH (RBC) [Entitic mass] 29.9 pg Normal 27.0-34.0 [facility] Comment on above: Performed By: #### 2 599049 #### [facility] [address] [place] [address] MCHC (RBC) [Mass/Vol] 31.8 g/dL Normal 31.4-36.0 [facility] Comment on above: Performed By: #### 2 [id number] #### [facility] [address] [place] [address] MCV (RBC) [Entitic vol] 94.0 fL Normal 80.0-100.0 [facility] Comment on above: Performed By: #### 2 [id number] #### [facility] [address] [place] [address] [place] Absolute 0.4 E9/L Normal 0.2-1.0 [facility] Comment on above: Performed By: #### 2 268461 #### [facility] [address] [place] [address] Monocytes/100 WBC (Bld) 5.8 % Normal 4.0-14.0 [facility] Comment on above: Performed By: #### 2 563175 #### [facility] [address] [place] [address] Neutro Absolute 3.8 E9/L Normal 2.0-7.5 [facility] Comment on above: Performed By: #### 2 402363 #### [facility] [address] [place] [address] Neutro Auto 61.4 % Normal 36.0-75.0 [facility] Comment on above: Performed By: #### 2 763888 #### [facility] [address] [place] [address] Platelet 220.0 E9/L Normal 150.0-500.0 [facility] Comment on above: Performed By: #### 2 719394 #### [facility] [address] [place] [address] Platelet mean volume (Bld) [Entitic vol] 9.1 fL Normal 6.4-10.8 [facility] Comment on above: Performed By: #### 2 442170 #### [facility] [address] [place] [address] RBC 4.9 E12/L Normal 4.3-5.9 [facility] Comment on above: Performed By: #### 2 060517 #### [facility] [address] [place] [address] WBC 6.2 E9/L Normal 4.0-11.0 [facility] Comment on above: Performed By: #### 2 [id number] #### [facility] [address] [place] [address] CMPon 02-19-2025 Albumin [Mass/Vol] 4.1 g/dL Normal 3.3-5.0 [facility] Comment on above: Performed By: #### 2 851026 #### [facility] [address] [place] [address] Albumin/Globulin [Mass ratio] 1.6 {ratio} Normal 1.1-2.2 [facility] Comment on above: Performed By: #### 2 [id number] #### [facility] [address] [place] [address] Alk Phos 70 Int._Unit/L Normal 21-98 [facility] Comment on above: Performed By: #### 2 [id number] #### [facility] [address] [place] [address] ALT 14 Int._Unit/L Normal 6-46 [facility] Comment on above: Performed By: #### 2 513381 #### [facility] [address] [place] [address] Anion gap [Moles/Vol] 12 mmol/L Normal 6-16 [facility] Comment on above: Performed By: #### 2 689886 #### [facility] [address] [place] [address] AST 22 Int._Unit/L Normal 5-43 [facility] Comment on above: Performed By: #### 2 568614 #### [facility] [address] [place] [address] Bili Total 0.7 mg/dL Normal 0.0-1.1 [facility] Comment on above: Performed By: #### 2 673002 #### [facility] [address] [place] [address] BUN/Creat Ratio 18 No Units Normal 10-[address] [facility] Comment on above: Performed By: #### 2 204182 #### [facility] [address] [place] [address] Calcium [Mass/Vol] 9.4 mg/dL Normal 8.9-11.1 [facility] Comment on above: Performed By: #### 2 728091 #### [facility] [address] [place] [address] Chloride [Moles/Vol] 107 mmol/L Normal 101-111 [facility] Comment on above: Performed By: #### [id number] #### [facility] [address] [place] [address] CO2 [Moles/Vol] 25 mmol/L Normal 21-31 [facility] Comment on above: Performed By: #### [id number] #### [facility] [address] [place] [address] Creatinine [Mass/Vol] 0.8 mg/dL Normal 0.5-1.3 [facility] Comment on above: Performed By: #### [id number] #### [facility] [address] [place], [place] [id number] Globulin (S) [Mass/Vol] 2.5 g/dL Normal 1.4-4.0 [facility] Comment on above: Performed By: #### 2 [id number] #### [facility] [address] [place] [address] Glucose [Mass/Vol] 83 mg/dL Normal 55-199 [facility] Comment on above: Performed By: #### 2 [id number] #### [facility] [address] [place] [address] Potassium [Moles/Vol] 4.8 mmol/L Normal 3.5-5.3 [facility] Comment on above: Performed By: #### 2 [id number] #### [facility] [address] [place] [address] Protein [Mass/Vol] 6.6 g/dL Normal 6.0-7.8 [facility] Comment on above: Performed By: #### 2 [id number] #### [facility] [address] [place] [address] Sodium [Moles/Vol] 139 mmol/L Normal 135-145 [facility] Comment on above: Performed By: #### 2 [id number] #### [facility] [address] [place] [address] Urea nitrogen [Mass/Vol] 14 mg/dL Normal 5-21 [facility] Comment on above: Performed By: #### 2 [id number] #### [facility] [address] [place] [address] CNOVon 02-19-2025 CNOV Office Visit (ERWIN ) YAMILE SIDDIQUI ([id number]) 1955 F Date Time Provider Department 02/19/25 1:20 PM HARISH PAULA During your visit today, we recorded the following information about you: Pulse Blood pressure Weight 72/minute 110/48 72.1 kg Harish Paula MD 02/19/2025 1:16 PM Signed [facility] Date of Service: 02/19/2025 Patient: Yamile Siddiqui Medical Record: [id number] Primary Care Physician: Aleksander Jimenez MD Referring Provider: SELF Last Rheumatology visit: 10/16/2024 (with Harish Paula) Chief complaint: Follow Up (No questions or concerns. 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 ). She is currently taking methotrexate sodium, prednisone. Yamile is both RF - 49 (11/09/2022) and CCP - 275 (11/09/2022) positive. Her most recent HANK was positive (06/26/2024). History of rheumatoid arthritis She was being followed by local rheumatology in [place], but her daughter wanted her to get a 2nd opinion at [facility]. Seen by Dr. 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 Patient reports pain over MCPs, PIPs, wrists, [...] Continue folic acid to 2 mg daily 10/2023-no synovitis, No synovitis on exam today Continue methotrexate 20 mg weekly, folic acid to 2 mg daily 02/2024 She reports pain in her hands after activities, otherwise reports doing good with no joint swelling. Continues to have low back pain radiating to left leg. Denies any new symptoms 06/2024-seen with daughter, continues to have low back pain with sciatica, seen by orthopedics, had x-ray of her spine that showed degenerative changes, awaiting MRI. She has noted some swelling over right second MCP had swelling over right wrist that lasted for about 3 days. Denies any other symptoms Sister has lupus, worried if she also has lupus 2024 Right 1st PIP pain with mild swelling at times. Right eye blind in central vision. Getting shots every 6 weeks in left eye. Sees [facility], Dr Patrick Washington. Eye hemorrhage. Has pain in thoracic spine. Injections in spine not really helpful and she is fearful of the injection. She does a lot with hands, cooks and cleans. 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 She has been sitting at home a lot. Plans on walking more when it warms up. On Ozempic. Lost some weight over the last few months, 167lb to 159lb. Had no synovitis on exam, continued on same medications. 01/2025-reports ongoing back pain,. She experiences occasional joint pain in the wrists, elbows, shoulders, knees, and ankles, which varies depending on activity level. During these episodes, she takes prednisone as needed. Reports fatigue on and off Previous workups 10/2022 RF 49, CCP 275 04/2018 RF 23 CCP 25 Sed rate/CRP normal TB screening negative Hepatitis (more content not included)... Normal [facility] Creatinine and Glomerular fi ltration rate.predicted panel (S/P/Bld)on 02-19-2025 Creatinine [Mass/Vol] 1.02 mg/dL High 0.58-0.96 [facility] Comment on above: Order Comment: Speci men Type: BLOOD SPECIMEN Ordering Facility: [facility] Address: [address] [place] [address] Performed By: #### 5 7021-8 #### [facility] CLIA [id number] [address] [place] [address] [place] eGFRcr SerPlBld CKD-EPI 2020 60 mL/min/1.73m??? Normal >=60 [facility] Comment on above: Order Comment: Speci men Type: BLOOD SPECIMEN Ordering Facility: [facility] Address: [address] [place] [address] Result Comment: Rimma mated Glomerular Filtration Rate [...] GFR. Performed By: #### 5 7021-8 #### [facility] CLIA [id number] [address] [place] [address] [place] Lipid Panelon 02-19-2025 Cholesterol [Mass/Vol] 156 mg/dL Normal 120-200 [facility] Comment on above: Performed By: #### 2 [id number] #### [facility] [address] [place] [address] Cholesterol in HDL [Mass/Vol] 64 mg/dL Invalid Interpretation Code [facility] Comment on above: Result Comment: '>= 60 LOW RISK' '<= 40 HIGH RISK' Performed By: #### 2 [id number] #### [facility] [address] [place] [address] Cholesterol in LDL [Mass/Vol] 89 mg/dL Normal <=129 [facility] Comment on above: Performed By: #### 2 [id number] #### [facility] [address] [place] [address] Cholesterol in VLDL [Mass/Vol] 12 mg/dL Normal 7-40 [facility] Comment on above: Performed By: #### 2 200615 #### [facility] [address] [place] [address] Triglyceride [Mass/Vol] 60 mg/dL Normal <=149 [facility] Comment on above: Performed By: #### 2 [id number] #### [facility] [address] [place] [address] TSHon 02-19-2025 TSH Qn 0.81 m[IU]/L Normal 0.34-5.60 [facility] Comment on above: Performed By: #### 2 [id number] #### [facility] [address] [place] [address] Vitamin D 25 Hydroxyon 02-19 Vitamin D 25 Hydroxy 38.3 ng/mL Normal 30.0-100.0 [facility] Comment on above: Performed By: #### 5 [id number] #### [facility] [address] [place] [address] eGFRon 02-19-2025 eGFR 80 mL/min/1.73 m2 Normal >=59 [facility] Comment on above: Performed By: #### 1 [id number] #### [facility] [address] [place] [address] Ambulatory Visit Summaryon 0 02-18-2025 Ambulatory Visit Summary Ambulatory Visit Summary YAMILE SIDDIQUI :1955 Visit Date:02/18/2025 Ambulatory Visit Instructions Your Diagnosis Controlled type 2 diabetes mellitus without complication, without long-term current use of insulin Hypercholesterolemia Vitamin D deficiency Dysuria Unsteady gait when walking Headache Visual disturbance BMI 25.0-25.9,adult Tests Performed CT Head or Brain w/o Contrast -- Results Pending -- Please visit your patient portal for your results or contact your primary care physician. Your Care Team Attending Physician - Silvia Diza Primary Care Physician - Silvia Diaz This Is Your Medications List Misc Prescription (Handicap placard) Misc Prescription (Misc DME Prescription) Misc Prescription (TENs unit) Misc Prescription (lancets) Misc Prescription (test strips) acetaminophen (Tylenol) atorvastatin (atorvastatin 20 mg Tab) azelastine nasal (azelastine hydrochloride 137 mcg spray) cholecalciferol (Vitamin D3) fluticasone nasal (fluticasone Nasal 0.05 mg/inh [place]) folic acid hydrocortisone topical (hydrocortisone Top 2.5% Crm) metformin (metformin 850 mg Tab) methotrexate (methotrexate 2.5 mg Tab) predniSONE (predniSONE 5 mg Tab) semaglutide (Ozempic (1 mg dose) 4 mg/3 mL subcutaneous solution) semaglutide (semaglutide 2 mg/3 mL (0.25 mg or 0.5 mg dose) subcutaneous solution (Ozempic)) Procedures Performed Cardiac catheter, Carpal tunnel release, Cataracts, Colonoscopy, Extn - Extraction of tooth, EMERALD BSO - Total abdominal hysterectomy and bilateral salpingo-oophorectomy. Discharge Vitals Temperature (Temporal Artery) 36.3 ???C Heart Rate (Peripheral) 68 Respiratory Rate 18 Blood Pressure 128/84 Height 168.0 cm Height 66 in Weight 72.0 kg Weight 158.733 lb BMI 25.51 What to do next Scheduled Follow-Up Appointments Monday 2:20 PM EDT With: Silvia Diaz Where: [address] [address] 1:00 PM EST With: Where: [address] [address]- Medications What How Much When Why Instructions Changed semaglutide (Ozempic (1 mg dose) 4 mg/ 3 mL subcutaneous solution) 1 Milligram Subcutaneous Every week Controlled type 2 diabetes mellitus without complication, without long-term current use of insulin Hypercholesterolemia Vitamin D deficiency Pickup at [facility]/pharmacy #[id number] Changed semaglutide (semaglutide 2 mg/ 3 mL (0.25 mg or 0.5 mg dose) subcutaneous solution (Ozempic)) 0.5 Milligram Subcutaneous Every week Unchanged acetaminophen (Tylenol) 650 Milligram By Mouth Every 8 hours as needed for as needed for pain Unchanged atorvastatin (atorvastatin 20 mg Tab) See instructions TAKE 1 TABLET BY MOUTH DAILY Unchanged azelastine nasal (azelastine hydrochloride 137 mcg spray) 1 Sprays Nasal Inhalation 2 times a day Unchanged cholecalciferol (Vitamin D3) Unchanged fluticasone nasal (fluticasone Nasal 0.05 mg/ inh [place]) 2 Sprays Nasal Inhalation Every day each nostril Unchanged folic acid 2 Milligram By Mouth Every day Unchanged hydrocortisone topical (hydrocortisone Top 2.5% Crm) See instructions APPLY TO THE AFFECTED AREA THREE TIMES DAILY Unchanged metformin (metformin 850 mg Tab) See instructions TAKE 1 TABLET BY MOUTH TWICE DAILY Unchanged methotrexate (methotrexate 2.5 mg Tab) 8 Tablets By Mouth Every 7 days Unchanged Misc Prescription (Handicap placard) See instructions Duration 5 years Unchanged Misc Prescription (lancets) See instructions lancets 33 gauge Unchanged Misc Prescription (Misc DME Prescription) See instructions Disp one Glucometer, #100 test strips and #100 lancets to test blood sugars once a day. Dx E11.8 Unchanged Misc Prescription (TENs unit) See instructions Osteopenia Please use TENs unit as per PT to help with pain. Unchanged Misc Prescription (test strips) See instructions to check BS, daily Unchanged predniSONE (predniSONE 5 mg Tab) By Mouth Every day Pharmacy Information [facility]/pharmacy #[id number]: [address] [place], [place] [phone] Allergies cefuroxime (Burning sensation, Itching, Rash) Problems Ongoing - Any problem that you are currently receiving treatment for. Anxiety and depression BMI 25.0-25.9,adult Carpal tunnel syndrome Change in voice Controlled type 2 diabetes mellitus without complication, without long-term current use of insulin Degenerative lumbar spinal stenosis Dysuria Fibromyalgia Former smoker Headache Hemorrhoid Hip pain, left Hypercholesterolemia Impingement of shoulder Loss of vision Macular degeneration of right eye Migraines Onychomycosis Osteopenia Overweight (BMI 25.0-29.9) Polyp of colon Rheumatoid arthritis involving multiple sites with positive rheumatoid factor S/P (more content not included)... Normal [facility] Ambulatory Visit Summary Ambulatory Visit Summary YAMILE SIDDIQUI :1955 Visit Date:02/18/2025 Ambulatory Visit Instructions Your Diagnosis Controlled type 2 diabetes mellitus without complication, without long-term current use of insulin Hypercholesterolemia Vitamin D deficiency Dysuria Unsteady gait when walking Headache Visual disturbance BMI 25.0-25.9,adult Tests Performed CT Head or Brain w/o Contrast -- Results Pending -- Please visit your patient portal for your results or contact your primary care physician. Your Care Team Attending Physician - Silvia Diaz Primary Care Physician - Silvia Diaz This Is Your Medications List Misc Prescription (Handicap placard) Misc Prescription (Misc DME Prescription) Misc Prescription (TENs unit) Misc Prescription (lancets) Misc Prescription (test strips) acetaminophen (Tylenol) atorvastatin (atorvastatin 20 mg Tab) azelastine nasal (azelastine hydrochloride 137 mcg spray) cholecalciferol (Vitamin D3) fluticasone nasal (fluticasone Nasal 0.05 mg/inh [place]) folic acid hydrocortisone topical (hydrocortisone Top 2.5% Crm) metformin (metformin 850 mg Tab) methotrexate (methotrexate 2.5 mg Tab) predniSONE (predniSONE 5 mg Tab) semaglutide (Ozempic (1 mg dose) 4 mg/3 mL subcutaneous solution) semaglutide (semaglutide 2 mg/3 mL (0.25 mg or 0.5 mg dose) subcutaneous solution (Ozempic)) Procedures Performed Cardiac catheter, Carpal tunnel release, Cataracts, Colonoscopy, Extn - Extraction of tooth, EMERALD BSO - Total abdominal hysterectomy and bilateral salpingo-oophorectomy. Discharge Vitals Temperature (Temporal Artery) 36.3 ???C Heart Rate (Peripheral) 68 Respiratory Rate 18 Blood Pressure 128/84 Height 168.0 cm Height 66 in Weight 72.0 kg Weight 158.733 lb BMI 25.51 What to do next Scheduled Follow-Up Appointments Monday 2:20 PM EDT With: Silvia Diaz Where: [address] [address] 1:00 PM EST With: Where: [address] [address] Medications What How Much When Why Instructions Changed semaglutide (Ozempic (1 mg dose) 4 mg/ 3 mL subcutaneous solution) 1 Milligram Subcutaneous Every week Controlled type 2 diabetes mellitus without complication, without long-term current use of insulin Hypercholesterolemia Vitamin D deficiency Pickup at [facility]/pharmacy #[id number] Changed semaglutide (semaglutide 2 mg/ 3 mL (0.25 mg or 0.5 mg dose) subcutaneous solution (Ozempic)) 0.5 Milligram Subcutaneous Every week Unchanged acetaminophen (Tylenol) 650 Milligram By Mouth Every 8 hours as needed for as needed for pain Unchanged atorvastatin (atorvastatin 20 mg Tab) See instructions TAKE 1 TABLET BY MOUTH DAILY Unchanged azelastine nasal (azelastine hydrochloride 137 mcg spray) 1 Sprays Nasal Inhalation 2 times a day Unchanged cholecalciferol (Vitamin D3) Unchanged fluticasone nasal (fluticasone Nasal 0.05 mg/ inh [place]) 2 Sprays Nasal Inhalation Every day each nostril Unchanged folic acid 2 Milligram By Mouth Every day Unchanged hydrocortisone topical (hydrocortisone Top 2.5% Crm) See instructions APPLY TO THE AFFECTED AREA THREE TIMES DAILY Unchanged metformin (metformin 850 mg Tab) See instructions TAKE 1 TABLET BY MOUTH TWICE DAILY Unchanged methotrexate (methotrexate 2.5 mg Tab) 8 Tablets By Mouth Every 7 days Unchanged Misc Prescription (Handicap placard) See instructions Duration 5 years Unchanged Misc Prescription (lancets) See instructions lancets 33 gauge Unchanged Misc Prescription (Misc DME Prescription) See instructions Disp one Glucometer, #100 test strips and #100 lancets to test blood sugars once a day. Dx E11.8 Unchanged Misc Prescription (TENs unit) See instructions Osteopenia Please use TENs unit as per PT to help with pain. Unchanged Misc Prescription (test strips) See instructions to check BS, daily Unchanged predniSONE (predniSONE 5 mg Tab) By Mouth Every day Pharmacy Information [facility]/pharmacy #[id number]: [address] [place], [place] [phone] Allergies cefuroxime (Burning sensation, Itching, Rash) Problems Ongoing - Any problem that you are currently receiving treatment for. Anxiety and depression BMI 25.0-25.9,adult Carpal tunnel syndrome Change in voice Controlled type 2 diabetes mellitus without complication, without long-term current use of insulin Degenerative lumbar spinal stenosis Dysuria Fibromyalgia Former smoker Headache Hemorrhoid Hip pain, left Hypercholesterolemia Impingement of shoulder Loss of vision Macular degeneration of right eye Migraines Onychomycosis Osteopenia Overweight (BMI 25.0-29.9) Polyp of colon Rheumatoid arthritis involving multiple sites with positive rheumatoid factor S/P (more content not included)... Normal [facility] Family Medicine Office/Clini c Noteon 02-18-2025 Family Medicine Office/Clinic Note Family Medicine Office/Clinic Note HPI Staff Yamile is a 69 year old female presenting with *Former [facility] patient* Do you have any of the following symptoms? Foot Exam: due today Eye Exam: Last A1C: Hgb A1C %: 5.9 % (02/20/24 14:42:00) Hgb A1c POC: 5.4 % (09/03/24 13:31:00) Statin: Atorvastatin 20 mg Had UTI was seen at [facility] on the she just finished her Nitrofurantoin 100 mg just finished this morning she is still having dysuria History of Present Illness pt presents today for 6 month follow up. is due for annual labs. Review of Systems PHQ Score Initial Depression Screen Score: 0 SCORE Physical Exam Vitals & Measurements T: 36.3 ???C(Temporal Artery) HR: 68(Peripheral) RR: 18 BP: 128/84 SpO2: 99% HT: 66 in HT: 168.0 cm WT: 158.733 lb WT: 72.0 kg BMI: 25.51 General: alert, no acute distress ENMT: oral mucosa moist, no pharyngeal erythema or exudate Cardiovascular: regular rate and rhythm, normal peripheral perfusion Respiratory: Lungs CTA, respirations non labored Extremities: no deformity, no trauma Neurological: oriented x 4, LOC appropriate for age, CN II-XII intact, motor strength equal & normal bilaterally, speech normal Assessment/Plan 1. Controlled type 2 diabetes mellitus without complication, without long-term current use of insulin (E11.9: Type 2 diabetes mellitus without complications) pt presents today for diabetes follow up. will check hgba1c today. will increase Ozempic to 1mg. will do foot exam at next visit RTC 3 months Ordered: semaglutide, 1 mg, SubCutaneous, qWeek, # 4 EA, Refills(s) 3, [id number] 168, cm, 02/18/25 13:44:00 EDT, Height/Length Dosing, 72, kg, 02/18/25 13:44:00 EDT, Weight Dosing CBC w/ Auto Diff Comprehensive Metabolic Panel CT Head or Brain w/o Contrast HgbA1c Lipid Panel Thyroid Stimulating Hormone Vitamin D 25 Hydroxy 2. Hypercholesterolemia (E78.00: Pure hypercholesterolemia, unspecified) lipid panel drawn in office today Ordered: semaglutide, 1 mg, SubCutaneous, qWeek, # 4 EA, Refills(s) 3, Pharmacy: [facility]/pharmacy #[id number], 168, cm, 02/18/25 13:44:00 EDT, Height/Length Dosing, 72, kg, 02/18/25 13:44:00 EDT, Weight Dosing CBC w/ Auto Diff Comprehensive Metabolic Panel CT Head or Brain w/o Contrast HgbA1c Lipid Panel Thyroid Stimulating Hormone Vitamin D 25 Hydroxy 3. Vitamin D deficiency (E55.9: Vitamin D deficiency, unspecified) vitamin D drawn today Ordered: semaglutide, 1 mg, SubCutaneous, qWeek, # 4 EA, Refills(s) 3, Pharmacy: [facility]/pharmacy #[id number], 168, cm, 02/18/25 13:44:00 EDT, Height/Length Dosing, 72, kg, 02/18/25 13:44:00 EDT, Weight Dosing CBC w/ Auto Diff Comprehensive Metabolic Panel CT Head or Brain w/o Contrast HgbA1c Lipid Panel Thyroid Stimulating Hormone Vitamin D 25 Hydroxy 4. Dysuria (R30.0: Dysuria) will send urine for culture. she just finished Macrobid but is still having dysuria 5. Unsteady gait when walking (R26.81: Unsteadiness on feet) pt is concerned that her balance is off. and seems to be getting worse. she is also having visual disturbances and headaches. will order CT of brain. to be done at [facility] Ordered: CT Head or Brain w/o Contrast 6. Headache (R51.9: Headache, unspecified) see above Ordered: CT Head or Brain w/o Contrast 7. Visual disturbance (H53.9: Unspecified visual disturbance) see above Ordered: CT Head or Brain w/o Contrast 8. BMI 25.0-25.9,adult (Z68.25: Body mass index [BMI] 25.0-25.9, adult) BMI education Follow-up No qualifying data available Problem List/Past Medical History Ongoing Anxiety and depression BMI 25.0-25.9,adult Carpal tunnel syndrome Change in voice Controlled type 2 diabetes mellitus without complication, without long-term current use of insulin Degenerative lumbar spinal stenosis Dysuria Fibromyalgia Former smoker Headache Hemorrhoid Hip pain, left Hypercholesterolemia Impingement of shoulder Loss of vision Macular degeneration of right eye Migraines Onychomycosis Osteopenia Overweight (BMI 25.0-29.9) Polyp of colon Rheumatoid arthritis involving multiple sites with positive rheumatoid factor S/P tooth extraction Sciatica Unsteady gait when walking Visual disturbance Vitamin D deficiency Historical No qualifying data Procedure/Surgical History Cardiac catheter, Carpal tunnel release, Cataracts, Colonoscopy, Extn - Extraction of tooth, EMERALD BSO - Total abdominal hysterectomy and bilateral salpingo-oophorectomy. Medications atorvastatin 20 mg Tab, See Instructions, 4 refills azelastine hydrochloride 137 mcg spray, 1 spray(s), Nasal, BID fluticasone Nasal 0.05 mg/inh [place], 2 spray(s), Nasal, Daily folic acid, 2 mg, Oral, Daily Handicap placard, See Instructions hydrocortisone Top 2.5% Crm, See Instructions lancets, See Instructions, 1 refills metformin 850 mg Tab, See Instructions, 4 refills methotrexate 2.5 mg Tab, 20 mg= 8 tab(s), Oral, q7day (more content not included)... Normal [facility] Comment on above: Result Comment: Elec tronically Signed By: Silvia Diaz\.christopher\Date and Time Signed: 02/18/25 14:25 EDT Urine Cultureon 02-13-2025 Bacteria identified Cx Nom (U) ORGANISM: Escherichia coli (O:ESCCOL) [place] Count >100,000 Aerobic KWABENA Charge ([id number]) --- SUSCEPTIBILITY -- ORGANISM: O:ESCCOL ANTIBIOTIC INTERPRETATION KWABENA Amikacin S <16 Amoxacillin/K Clavulanate S <8 Ampicillin S <8 Ampicillin/Sulbactam S <4 Aztreonam S <4 Cefazolin S <2 Cefepime S <2 Ceftazidime S <1 Ceftazidime/Avibactam S <4 Ceftolozane/Tazobactam S <2 Ceftriaxone S <1 Cefuroxime S <4 Ciprofloxacin S <0.25 Ertapenem S <0.5 Gentamicin S <2 Levofloxacin S <0.5 Meropenem S <1 Meropenem/Vaborbactam S <2 Nitrofurantoin S <32 Piperacillin/Tazobacta m S <8 Tetracycline S <4 Tigecycline S <2 Tobramycin S <2 Trimethoprim/Sulfameth oxazole S <0.5 S = SUSCEPTIBLE I = INTERMEDIATE R = RESISTANT BLANK = DATA NOT AVAILABLE, OR DRUG NOT ADVISABLE OR TESTED R* = RESISTANCE DUE TO EXTENDED SPECTRUM BETA-LACTAMASES ESBL = EXTENDED SPECTRUM BETA-LACTAMASE TFG = THYMIDINE-DEPENDENT STRAIN SALLY = BETA-LACTAMASE POSITIVE IB = INDUCIBLE BETA-LACTAMASE. APPEARS IN PLACE OF 'S' WITH SPECIES KNOWN TO POSSESS INDUCIBLE BETA-LACTAMASES. POTENTIALLY THEY MAY BECOME RESISTANT TO ALL B-LACTAM DRUGS. PERFORMED BY: [address] [place] [address] PATHOLOGIST [employer]SE [employer]ER DAVID BROOKS M.D. Normal [facility] Comment on above: Performed By: #### C UU #### [place] [address] [place] CBC W Auto Differential pane l (Bld)on 10-16-2024 Basophils (Bld) [#/Vol] 0.06 10*3/uL Normal <0.11 [facility] Comment on above: Order Comment: Speci men Type: BLOOD SPECIMENOrdering Facility: [facility] Address: [address] [place] [address] Performed By: #### 5 7021-8 ####[facility] [id number] [address] [place] Basophils/100 WBC (Bld) 1.0 % Normal [facility] Comment on above: Order Comment: Speci men Type: BLOOD SPECIMENOrdering Facility: [facility] Address: [address] [place] [address] Performed By: #### 5 7021-8 ####[facility] LAB[facility]IA [id number] [place] [address] [place] Differential cell count method Nom (Bld) Auto Normal [facility] Comment on above: Order Comment: Speci men Type: BLOOD SPECIMENOrdering Facility: [facility] Address: [address] [place] [address] Performed By: #### 5 7021-8 ####[facility] [id number] [place] [address] [place] Eosinophils (Bld) [#/Vol] 0.12 10*3/uL Normal <0.46 [facility] Comment on above: Order Comment: Speci men Type: BLOOD SPECIMENOrdering Facility: [facility] Address: [address] [place] [address] Performed By: #### 5 7021-8 ####[facility] LABCLIA [id number] [place] [address] [place] Eosinophils/100 WBC (Bld) 1.9 % Normal [facility] Comment on above: Order Comment: Speci men Type: BLOOD SPECIMENOrdering Facility: [facility] Address: [address] [place] [address] Performed By: #### 5 7021-8 ####[facility] LABCLIA [id number] [place] [address] [place] Erythrocyte distribution width (RBC) [Ratio] 13.8 % Normal 11.5-15.0 [facility] Comment on above: Order Comment: Speci men Type: BLOOD SPECIMENOrdering Facility: [facility] Address: [address] [place] [address] Performed By: #### 5 7021-8 ####[facility] LABCLIA [id number] [place] [address] [place] Hematocrit (Bld) [Volume fraction] 47.4 % High 36.0-46.0 [facility] Comment on above: Order Comment: Speci men Type: BLOOD SPECIMENOrdering Facility: [facility] Address: [address] [place] [address] Performed By: #### 5 7021-8 ####[facility] LABCLIA [id number] [address], [place] [address] [place] Hemoglobin (Bld) [Mass/Vol] 15.4 g/dL Normal 11.5-15.5 [facility] Comment on above: Order Comment: Speci men Type: BLOOD SPECIMENOrdering Facility: [facility] Address: [address] [place] [address] Performed By: #### 5 7021-8 ####[facility] LABCLIA [id number] [address], [place] [address] [place] Immature granulocytes (Bld) [#/Vol] 10*3/uL Normal <0.10 [facility] Comment on above: Order Comment: Speci men Type: BLOOD SPECIMENOrdering Facility: [facility] Address: [address] [place] [address] Performed By: #### 5 7021-8 ####[facility] LABCLIA [id number] [address], [facility] [place] Immature granulocytes/100 WBC (Bld) 0.3 % Normal [facility] Comment on above: Order Comment: Speci men Type: BLOOD SPECIMENOrdering Facility: [facility] Address: [address] [place] [address] Performed By: #### 5 7021-8 ####[facility] LABCLIA [id number] [address] [place] [address] [place] Lymphocytes (Bld) [#/Vol] 1.86 10*3/uL Normal 1.00-4.00 [facility] Comment on above: Order Comment: Speci men Type: BLOOD SPECIMENOrdering Facility: [facility] Address: [address] [place] [address] Performed By: #### 5 7021-8 ####[facility] LABCLIA [id number] [place] [address] [place] Lymphocytes/100 WBC (Bld) 29.8 % Normal [facility] Comment on above: Order Comment: Speci men Type: BLOOD SPECIMENOrdering Facility: [facility] Address: [address] [place] [address] Performed By: #### 5 7021-8 ####[facility] LABIA [id number] [place] [address] [place] MCH (RBC) [Entitic mass] 30.1 pg Normal 26.0-34.0 [facility] Comment on above: Order Comment: Speci men Type: BLOOD SPECIMENOrdering Facility: [facility] Address: [address] [place] [address] Performed By: #### 5 7021-8 ####[facility] LABIA [id number] [address] [place] MCHC (RBC) [Mass/Vol] 32.5 g/dL Normal 30.5-36.0 [facility] Comment on above: Order Comment: Speci men Type: BLOOD SPECIMENOrdering Facility: [facility] Address: [address] [place] [address] Performed By: #### 5 7021-8 ####[facility] LABIA [id number] [place] [address] [place] MCV (RBC) [Entitic vol] 92.8 fL Normal 80.0-100.0 [facility] Comment on above: Order Comment: Speci men Type: BLOOD SPECIMENOrdering Facility: [facility] Address: [address] [place] [address] Performed By: #### 5 7021-8 ####[facility] LABCLIA [id number] [facility] [address] [place] [address] [place] Monocytes (Bld) [#/Vol] 0.54 10*3/uL Normal <0.87 [facility] Comment on above: Order Comment: Speci men Type: BLOOD SPECIMENOrdering Facility: [facility] Address: [address] [place] [address] Performed By: #### 5 7021-8 ####[facility] LABCLIA [id number] [address], [facility] [place] Monocytes/100 WBC (Bld) 8.7 % Normal [facility] Comment on above: Order Comment: Speci men Type: BLOOD SPECIMENOrdering Facility: [facility] Address: [address] [place] [address] Performed By: #### 5 7021-8 ####[facility] LABCLIA [id number] [address] [place] [address] [place] Neutrophils (Bld) [#/Vol] 3.64 10*3/uL Normal 1.45-7.50 [facility] Comment on above: Order Comment: Speci men Type: BLOOD SPECIMENOrdering Facility: [facility] Address: [address] [place] [address] Performed By: #### 5 7021-8 ####[facility] LABCLIA [id number] [facility] [address] [place] [address] [place] Neutrophils/100 WBC (Bld) 58.3 % Normal [facility] Comment on above: Order Comment: Speci men Type: BLOOD SPECIMENOrdering Facility: [facility] Address: [address] [place] [address] Performed By: #### 5 7021-8 ####[facility] LABCLIA [id number] [place] [address] [place] Nucleated RBC (Bld) [#/Vol] 10*3/uL Normal <0.01 [facility] Comment on above: Order Comment: Speci men Type: BLOOD SPECIMENOrdering Facility: [facility] Address: [address] [place] [address] Performed By: #### 5 7021-8 ####[facility] LABCLIA [id number] [place] [address] [place] Nucleated RBC/100 WBC (Bld) [Ratio] 0.0 /100 WBC Normal [facility] Comment on above: Order Comment: Speci men Type: BLOOD SPECIMENOrdering Facility: [facility] Address: [address] [place] [address] Performed By: #### 5 7021-8 ####[facility] LABCLIA [id number] [place] [address] [place] Platelet mean volume (Bld) [Entitic vol] 10.0 fL Normal 9.0-12.7 [facility] Comment on above: Order Comment: Speci men Type: BLOOD SPECIMENOrdering Facility: [facility] Address: [address] [place] [address] Performed By: #### 5 7021-8 ####[facility] LABCLIA [id number] [place] [address] [place] Platelets (Bld) [#/Vol] 220 10*3/uL Normal 150-400 [facility] Comment on above: Order Comment: Speci men Type: BLOOD SPECIMENOrdering Facility: [facility] Address: [address] [place] [address] Performed By: #### 5 7021-8 ####[facility] LABCLIA [id number] [place] [address] [place] RBC (Bld) [#/Vol] 5.11 10*6/uL Normal 3.90-5.[address] [facility] Comment on above: Order Comment: Speci men Type: BLOOD SPECIMENOrdering Facility: [facility] Address: [address] [place] [address] Performed By: #### 5 7021-8 ####[facility] [id number] [place] [address] [place] WBC (Bld) [#/Vol] 6.24 10*3/uL Normal 3.70-11.[address] [facility] Comment on above: Order Comment: Speci men Type: BLOOD SPECIMENOrdering Facility: [facility] Address: [address] [place] [address] Performed By: #### 5 7021-8 ####[facility] LABIA [id number] [address] [place] CNOVon 10-16-2024 CNOV Office Visit (ERWIN ) YAMILE SIDDIQUI ([id number]) 1955 F Date Time Provider Department 10/16/24 1:20 PM HARIHS PAULA During your visit today, we recorded the following information about you: Pulse Blood pressure Weight 78/minute 108/71 72.4 kg Harish Paula MD 10/16/2024 1:45 PM Addendum Rheumatology Outpatient Clinic Date of Service: 10/16/2024 Patient: Yamile Siddiqui Medical Record: [id number] Primary Care Physician: Aleksander Jimenez MD Referring Provider: SELF Last Rheumatology visit: 06/26/2024 (with Harish Paula) Chief complaint: F/U 3 Month (RA continues to have stiffness lasting 1-2 hrs and swelling in hands , refills needed ) History of Present Illness Yamile Siddiqui is a 69 year old White female with medical history of rheumatoid arthritis, hyperlipidemia, diabetes mellitus, history of tobacco use, Histoplasmosis right eye in ( treated), 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 She is currently taking methotrexate sodium, prednisone. Yamile is both RF - 49 (11/09/2022) and CCP - 275 (11/09/2022) positive. Her most recent HANK was positive (06/26/2024). History of rheumatoid arthritis She was being followed by local rheumatology in [place], but her daughter wanted her to get a 2nd opinion at [facility]. Seen by Dr. 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 Patient reports pain over MCPs, PIPs, wrists, [...] Continue folic acid to 2 mg daily 10/2023-no synovitis, No synovitis on exam today Continue methotrexate 20 mg weekly, folic acid to 2 mg daily 02/2024 She reports pain in her hands after activities, otherwise reports doing good with no joint swelling. Continues to have low back pain radiating to left leg. Denies any new symptoms 06/2024-seen with daughter, continues to have low back pain with sciatica, seen by orthopedics, had x-ray of her spine that showed degenerative changes, awaiting MRI. She has noted some swelling over right second MCP had swelling over right wrist that lasted for about 3 days. Denies any other symptoms Sister has lupus, worried if she also has lupus 2024 Right 1st PIP pain with mild swelling at times. Right eye blind in central vision. Getting shots every 6 weeks in left eye. Sees [facility], Dr Patrick Washington. Eye hemorrhage. Has pain in thoracic spine. Injections in spine not really helpful and she is fearful of the injection. She does a lot with hands, cooks and cleans. 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 She has been sitting at home a lot. Plans on walking more when it warms up. On Ozempic. Lost some weight over the last few months, 167lb to 159lb. Previous workups 10/2022 RF 49, CCP 275 04/2018 RF 23 CCP 25 Sed rate/CRP normal TB screening negative Hepatitis B/C negative XR bilateral hands 10/2022- Mild osteoarthritis of the bilateral hands. XR bilateral feet 10/2022- Negative radiographs of the bilateral feet Radiograph bilateral feet 10 (more content not included)... Normal [facility] Comprehensive metabolic 2000 panelon 10-16-2024 Albumin [Mass/Vol] 4.1 g/dL Normal 3.9-4.9 [facility] Comment on above: Order Comment: Speci men Type: BLOOD SPECIMENOrdering Facility: [facility] Address: [address] [place] [address] [place] [address] Performed By: #### 2 4323-8 ####[facility] LABCLIA [id number] [address] [place] [address] [place] ALP [Catalytic activity/Vol] 76 U/L Normal 34-123 [facility] Comment on above: Order Comment: Speci men Type: BLOOD SPECIMENOrdering Facility: [facility] Address: [address] [place] [address] Performed By: #### 2 4323-8 ####[facility] LABCLIA [id number] [place] [id number] [place] ALT [Catalytic activity/Vol] 14 U/L Normal 7-38 [facility] Comment on above: Order Comment: Speci men Type: BLOOD SPECIMENOrdering Facility: [facility] Address: [address] [place] [address] Performed By: #### 2 4323-8 ####[facility] LABCLIA [id number] [place] [address] [place] Anion gap [Moles/Vol] 9 mmol/L Normal 8-15 [facility] Comment on above: Order Comment: Speci men Type: BLOOD SPECIMENOrdering Facility: [facility] Address: [address] [place] [address] Performed By: #### 2 4323-8 ####[facility] LABCLIA [id number] [place] [address] [place] AST [Catalytic activity/Vol] 17 U/L Normal 13-35 [facility] Comment on above: Order Comment: Speci men Type: BLOOD SPECIMENOrdering Facility: [facility] Address: [address] [place], [place] [address] Performed By: #### 2 4323-8 ####[facility] LABCLIA [id number] [place] [id number] [place] Bilirubin [Mass/Vol] 0.5 mg/dL Normal 0.2-1.3 [facility] Comment on above: Order Comment: Speci men Type: BLOOD SPECIMENOrdering Facility: [facility] Address: [address] [place] [id number] Performed By: #### 2 4323-8 ####[facility] LABCLIA [id number] [address] [address] [place] Calcium [Mass/Vol] 10.1 mg/dL Normal 8.5-10.2 [facility] Comment on above: Order Comment: Speci men Type: BLOOD SPECIMENOrdering Facility: [facility] Address: [address] [place], [place] [address] Performed By: #### 2 4323-8 ####[facility] LABCLIA [id number] [facility] [address] [address] [place] Chloride [Moles/Vol] 104 mmol/L Normal 98-107 [facility] Comment on above: Order Comment: Speci men Type: BLOOD SPECIMENOrdering Facility: [facility] Address: [address] [place], [place] [address] Performed By: #### 2 4323-8 ####[facility] LABCLIA [id number] [facility] [place] [id number] [place] CO2 [Moles/Vol] 28 mmol/L Normal 22-30 [facility] Comment on above: Order Comment: Speci men Type: BLOOD SPECIMENOrdering Facility: [facility] Address: [address] [place], [place] [address] Performed By: #### 2 4323-8 ####[facility] LABCLIA [id number] [facility] [address] [place] [address] [place] Creatinine [Mass/Vol] 0.93 mg/dL Normal 0.58-0.96 [facility] Comment on above: Order Comment: Speci men Type: BLOOD SPECIMENOrdering Facility: [facility] Address: [address] [place], [place] [address] Performed By: #### 2 4323-8 ####[facility] LABCLIA [id number] [place] [id number] [place] Creatinine and Glomerular filtration rate.predicted panel (S/P/Bld) 68 mL/min/1.73m??? Normal >=60 [facility] Comment on above: Order Comment: Mona brenda Type: BLOOD SPECIMENOrdering Facility: [facility] Address: [address] [place] [address] Result Comment: Rimma mated Glomerular Filtration Rate [...] actual GFR. Performed By: #### 2 4323-8 ####[facility] LABCLIA [id number] [place] [id number] [place] Glucose [Mass/Vol] 91 mg/dL Normal 74-99 [facility] Comment on above: Order Comment: Mona gutierrez Type: BLOOD SPECIMENOrdering Facility: [facility] Address: [address] [place] [address] Result Comment: The [place] Diabetes Association (ADA) provides guidance for cutoff [...] Standards of Medical Care in Diabetes 2016, [place] Diabetes Association. Diabetes Care. 2016.39(Suppl 1). Performed By: #### 2 4323-8 ####[facility] LABCLIA [id number] [place] [id number] [place] Potassium [Moles/Vol] 5.0 mmol/L Normal 3.7-5.1 [facility] Comment on above: Order Comment: Speci men Type: BLOOD SPECIMENOrdering Facility: [facility] Address: [address] [place] [address] Performed By: #### 2 4323-8 ####[facility] LABCLIA [id number] [facility] [address] [place] [address] [place] Protein [Mass/Vol] 6.4 g/dL Normal 6.3-8.0 [facility] Comment on above: Order Comment: Speci men Type: BLOOD SPECIMENOrdering Facility: [facility] Address: [address] [place] [address] Performed By: #### 2 4323-8 ####[facility] LABCLIA [id number] [facility] [address] [place] [address] [place] Sodium [Moles/Vol] 141 mmol/L Normal 136-144 [facility] Comment on above: Order Comment: Speci men Type: BLOOD SPECIMENOrdering Facility: [facility] Address: [address] [place] [address] Performed By: #### 2 4323-8 ####[facility] LABCLIA [id number] [facility] [address] [place] [address] [place] Urea nitrogen [Mass/Vol] 15 mg/dL Normal 7-21 [facility] Comment on above: Order Comment: Speci men Type: BLOOD SPECIMENOrdering Facility: [facility] Address: [address] [place] [address] Performed By: #### 2 4323-8 ####[facility] LABCLIA [id number] [facility] [address], [facility] [place] Ambulatory Visit Summaryon 0 09-25-2024 Ambulatory Visit Summary Ambulatory Visit Summary YAMILE SIDDIQUI :1955 Visit Date:09/24/2024 Ambulatory Visit Instructions Your Diagnosis Encounter for subsequent annual wellness visit (AWV) in Medicare patient Controlled type 2 diabetes mellitus without complication, without long-term current use of insulin Rheumatoid arthritis involving multiple sites with positive rheumatoid factor Fibromyalgia Former smoker Hypercholesterolemia Sciatica Macular degeneration of right eye Osteopenia Encounter for hepatitis C screening test for low risk patient Breast cancer screening by mammogram Overweight Tests Performed CT Chest, Low Dose Screening -- Results Pending -- MA Mamm Screen w/CAD if perf and 3D David -- Results Pending -- Please visit your patient portal for your results or contact your primary care physician. Your Care Team Attending Physician - Julee De Los Santos MD Primary Care Physician - Julee De Los Santos MD This Is Your Medications List Misc Prescription (Handicap placard) Misc Prescription (Misc DME Prescription) Misc Prescription (TENs unit) Misc Prescription (lancets) Misc Prescription (test strips) acetaminophen (Tylenol) atorvastatin (atorvastatin 20 mg Tab) azelastine nasal (azelastine hydrochloride 137 mcg spray) cholecalciferol (Vitamin D3) fluticasone nasal (fluticasone Nasal 0.05 mg/inh [place]) folic acid hydrocortisone topical (hydrocortisone Top 2.5% Crm) metformin (metformin 850 mg Tab) methotrexate (methotrexate 2.5 mg Tab) predniSONE (predniSONE 5 mg Tab) semaglutide (semaglutide 2 mg/3 mL (0.25 mg or 0.5 mg dose) subcutaneous solution) Procedures Performed Cardiac catheter, Carpal tunnel release, Cataracts, Colonoscopy, Extn - Extraction of tooth, EMERALD BSO - Total abdominal hysterectomy and bilateral salpingo-oophorectomy. Discharge Vitals Heart Rate (Peripheral) 74 Blood Pressure 120/70 Height 168 cm Height 66 in Weight 72.9 kg Weight 160.717 lb BMI 25.83 What to do next Scheduled Follow-Up Appointments 2024 1:00 PM EDT With: Julee De Los Santos MD Where: [address] [address] 2025 1:00 PM EST With: Where: [address] [address]- You Need to Complete the Following HCV Antibody RFX to Quant PCR, Blood, Routine collect, 09/24/24, Order for future visit, Lab Collect, Encounter for hepatitis C screening test for low risk patient, Print Label By Order Location Medications What How Much When Why Instructions Unchanged acetaminophen (Tylenol) 650 Milligram By Mouth Every 8 hours as needed for as needed for pain Unchanged atorvastatin (atorvastatin 20 mg Tab) See instructions TAKE 1 TABLET BY MOUTH DAILY Unchanged azelastine nasal (azelastine hydrochloride 137 mcg spray) 1 Sprays Nasal Inhalation 2 times a day Unchanged cholecalciferol (Vitamin D3) Unchanged fluticasone nasal (fluticasone Nasal 0.05 mg/ inh [place]) 2 Sprays Nasal Inhalation Every day each nostril Unchanged folic acid 2 Milligram By Mouth Every day Unchanged hydrocortisone topical (hydrocortisone Top 2.5% Crm) See instructions APPLY TO THE AFFECTED AREA THREE TIMES DAILY Unchanged metformin (metformin 850 mg Tab) See instructions TAKE 1 TABLET BY MOUTH TWICE DAILY Unchanged methotrexate (methotrexate 2.5 mg Tab) 8 Tablets By Mouth Every 7 days Unchanged Misc Prescription (Handicap placard) See instructions Duration 5 years Unchanged Misc Prescription (lancets) See instructions lancets 33 gauge Unchanged Misc Prescription (Misc DME Prescription) See instructions Disp one Glucometer, #100 test strips and #100 lancets to test blood sugars once a day. Dx E11.8 Unchanged Misc Prescription (TENs unit) See instructions Osteopenia Please use TENs unit as per PT to help with pain. Unchanged Misc Prescription (test strips) See instructions to check BS, daily Unchanged predniSONE (predniSONE 5 mg Tab) By Mouth Every day Unchanged semaglutide (semaglutide 2 mg/ 3 mL (0.25 mg or 0.5 mg dose) subcutaneous solution) 0.5 Milligram Subcutaneous Every week Allergies cefuroxime (Burning sensation, Itching, Rash) Problems Ongoing - Any problem that you are currently receiving treatment for. Anxiety and depression BMI 25.0-25.9,adult Carpal tunnel syndrome Change in voice Controlled type 2 diabetes mellitus without complication, without long-term current use of insulin Degenerative lumbar spinal stenosis Fibromyalgia Former smoker Hemorrhoid Hip pain, left Hypercholesterolemia Impingement of shoulder Loss of vision Macular degeneration of right eye Migraines Onychomycosis Osteopenia Overweight (BMI 25.0-29.9) Polyp of colon Rheumatoid arthritis involving multiple sites with positive rheumatoid factor S/P tooth extractio (more content not included)... Normal [facility] Family Medicine Office/Clini c Noteon 09-25-2024 Family Medicine Office/Clinic Note Family Medicine Office/Clinic Note Chief Complaint Subsequent Medicare Wellness History of Present Illness Covid-19, MERS, Ebola Screen *Contact With Person With Highly Contagious Disease Like Ebola/MERS/COVID-19 AND Have One or More of the Symptoms Below : No *Travel to a Country With Wide-Spread Ebola/MERS/COVID-19 in the Past 21 Days AND Have One or More of the Symptoms Below : No Patient Reported Covid-19 Testing : No *Verify Droplet, Contact Precautions for Ebola (Reference for CDC) : N/A *Verify Airborne, Droplet Precautions for MERS/COVID-19 : N/A Germania Wilson - 09/24/2024 13:07 EST Medicare/Medicaid Summary Germania Wilson 09/24/2024 14:11 EST Chief Complaint : Subsequent Medicare Wellness Patient Counseled : Nutrition, Physical activity, Elevated BMI Height/Length Measured : 168 cm(Converted to: 5 ft 6 in, 66.14 in) Weight Measured : 72.9 kg(Converted to: 160 lb 11 Ounces, 160.717 lb) Body Mass Index Measured : 25.83 kg/m2 Height in Inches : 66 in Weight in Pounds : 160.717 lb Systolic Blood Pressure : 120 mmHg Diastolic Blood Pressure : 70 mmHg Blood Pressure Location : Left arm Blood Pressure Position : Sitting O2 Sat Resting/Exertion Alpha : Resting Peripheral Pulse Rate : 74 bpm SpO2 : 98 % Pain Present : No actual or suspected pain Germania Wilson 09/24/2024 13:07 EST Hearing and Vision Screening FT FT Whisper Test Comments : denies hearing deficits Vision Screen Comments : wears corrective lens. Dr. Alisia peters. Germania Wilson - 09/24/2024 13:07 EST Advance Directive FT Advance Directive : Yes Type of Advance Directive : Living will, Medical durable power of sports attorney Location of Advance Directive : Family to bring in copy from home Organ Donation Consent : No Germania Wilson 09/24/2024 13:07 EST Procedures / Surgeries FT - Procedure History (As Of: 09/24/2024 14:13:06 EST) Anesthesia Minutes: 0 ; Procedure Name: Cardiac catheter ; Procedure Minutes: 0 ; Last Reviewed Dt/Tm: 09/24/2024 14:09:52 EST Anesthesia Minutes: 0 ; Procedure Name: Colonoscopy ; Procedure Minutes: 0 ; Comments: 12/02/2022 13:38 Sidra Montgomery LPN 2014, normal 2020 ; Last Reviewed Dt/Tm: 09/24/2024 14:09:52 EST Anesthesia Minutes: 0 ; Procedure Name: Cataracts ; Procedure Minutes: 0 ; Last Reviewed Dt/Tm: 09/24/2024 14:09:52 EST Anesthesia Minutes: 0 ; Procedure Name: Carpal tunnel release ; Procedure Minutes: 0 ; Last Reviewed Dt/Tm: 09/24/2024 14:09:52 EST Anesthesia Minutes: 0 ; Procedure Name: EMERALD BSO - Total abdominal hysterectomy and bilateral salpingo-oophorectomy ; Procedure Minutes: 0 ; Last Reviewed Dt/Tm: 09/24/2024 14:09:52 EST Anesthesia Minutes: 0 ; Procedure Name: Extn - Extraction of tooth ; Procedure Minutes: 0 ; Comments: 04/10/2023 13:28 Sidra Montgomery LPN 7 of them ; Last Reviewed Dt/Tm: 09/24/2024 14:09:52 EST Family History Family History (As Of: 09/24/2024 14:13:06 EST) Brother: Relation: Brother ; Gender: Male ; Nomenclature: Cancer ; Value: Positive Nomenclature: Diabetes mellitus type 2 ; Value: Positive Nomenclature: Primary malignant neoplasm of colon ; Value: Positive Father: Relation: Father ; Gender: Male ; Nomenclature: Metastatic cancer ; Value: Positive Mother: Relation: Mother ; Gender: Female ; Nomenclature: Primary malignant neoplasm of bladder ; Value: Positive Nomenclature: Diabetes mellitus type 2 ; Value: Positive Medicare/Medicaid Social History FT Social History (As Of: 09/24/2024 14:13:06 EST) Alcohol: Never Comments: 09/24/2024 13:14 - Germania Wilson: denies use. 09/15/2023 11:43 - Dennis Grant: denies use (Last Updated: 09/24/2024 13:14:15 EST by Germania Wilson) Tobacco: Former smoker, quit more than 30 days ago Tobacco Use:. Never Smokeless Tobacco Use:. Cigarettes, Household tobacco concerns: No. Yes Comments: 09/24/2024 13:19 - Germania Wilson: denies smoking. Quit 2017. Started smoking at 16 years. 09/15/2023 11:43 - Dennis Grant: denies use (Last Updated: 09/24/2024 13:19:44 EST by Germania Wilson) Substance Abuse: Never Comments: 09/24/2024 13:19 - Germania Wilson: denies use (Last Updated: 09/24/2024 13:19:59 EST by Germania Wilson) Health Risk Assessment FT HRA little interest or pleasure? : No HRA down, depressed, or hopeless? : No Hazards in your house? : No Fall Risk Past Year : No Worried About Falling : No Use a Cane or Walker? : Yes Someone Helps You in the Morning : No Fallen or felt dizzy standing up? : Yes Assistance with personal care? : No Trouble taking meds correctly? : No HRA Pain Present : Yes Primary Pain Location : Back Numeric Rating Pain Scale : 8 Germania Wilson - 09/24/2024 14:09 EST Germania Wilson - 09/24/2024 14:11 EST Able to walk without help? : Yes Ability to shop w/out help : Yes Prepare your own meals? : Yes Housework without help? : Yes Handle money without help : Yes Track own medications without help? : Yes O (more content not included)... Normal [facility] Comment on above: Result Comment: Elec tronically Signed By: Julee De Los Santos MD\.br\Date and Time Signed: 09/25/24 10:08 EST\.br\Electronically Co-Signed By: Germania Wilson\.br\Date and Time Co-Signed: 09/24/24 14:58 EST Ambulatory Visit Summaryon 0 09-03-2024 Ambulatory Visit Summary Ambulatory Visit Summary YAMILE SIDDIQUI :1955 Visit Date:09/03/2024 Ambulatory Visit Instructions Your Diagnosis Controlled type 2 diabetes mellitus without complication, without long-term current use of insulin Rheumatoid arthritis involving multiple sites with positive rheumatoid factor Hemorrhoid BMI 26.0-26.9,adult Overweight (BMI 25.0-29.9) Former smoker Sciatica Your Care Team Attending Physician - Julee De Los Santos MD Primary Care Physician - Julee De Los Santos MD This Is Your Medications List hydrocortisone topical (Proctozone-HC 2.5% topical cream) Contact prescribing physician if questions or concerns Misc Prescription (Handicap placard) Misc Prescription (Misc DME Prescription) Misc Prescription (TENs unit) Misc Prescription (lancets) Misc Prescription (test strips) acetaminophen (Tylenol) atorvastatin (atorvastatin 20 mg Tab) azelastine nasal (azelastine hydrochloride 137 mcg spray) fluticasone nasal (fluticasone Nasal 0.05 mg/inh [place]) folic acid metformin (metformin 850 mg Tab) methotrexate (methotrexate 2.5 mg Tab) semaglutide (semaglutide 2 mg/3 mL (0.25 mg or 0.5 mg dose) subcutaneous solution) Procedures Performed Cardiac catheter, Carpal tunnel release, Cataracts, Colonoscopy, Extn - Extraction of tooth, EMERALD BSO - Total abdominal hysterectomy and bilateral salpingo-oophorectomy. Discharge Vitals Temperature (Tympanic) 36.7 ???C Heart Rate (Peripheral) 67 Respiratory Rate 18 Blood Pressure 132/84 Height 168 cm Height 66 in Weight 74.1 kg Weight 163.362 lb BMI 26.25 What to do next Scheduled Follow-Up Appointments Monday 1:00 PM EST With: Where: [address] [phone]- 2024 1:00 PM EDT With: Julee De Los Santos MD Where: [address] [address]- Medications What How Much When Why Instructions New hydrocortisone topical (Proctozone-HC 2.5% topical cream) 1 Application Topical 3 times a day Pickup at [facility] Unchanged acetaminophen (Tylenol) 650 Milligram By Mouth Every 8 hours as needed for as needed for pain Contact prescribing physician if questions or concerns Unchanged atorvastatin (atorvastatin 20 mg Tab) See instructions TAKE 1 TABLET BY MOUTH DAILY Contact prescribing physician if questions or concerns Unchanged azelastine nasal (azelastine hydrochloride 137 mcg spray) 1 Sprays Nasal Inhalation 2 times a day Contact prescribing physician if questions or concerns Unchanged fluticasone nasal (fluticasone Nasal 0.05 mg/ inh [place]) 2 Sprays Nasal Inhalation Every day each nostril Contact prescribing physician if questions or concerns Unchanged folic acid 2 Milligram By Mouth Every day Contact prescribing physician if questions or concerns Unchanged metformin (metformin 850 mg Tab) See instructions TAKE 1 TABLET BY MOUTH TWICE DAILY Contact prescribing physician if questions or concerns Unchanged methotrexate (methotrexate 2.5 mg Tab) 8 Tablets By Mouth Every 7 days Contact prescribing physician if questions or concerns Unchanged Misc Prescription (Handicap placard) See instructions Duration 5 years Contact prescribing physician if questions or concerns Unchanged Misc Prescription (lancets) See instructions lancets 33 gauge Contact prescribing physician if questions or concerns Unchanged Misc Prescription (Misc DME Prescription) See instructions Disp one Glucometer, #100 test strips and #100 lancets to test blood sugars once a day. Dx E11.8 Contact prescribing physician if questions or concerns Unchanged Misc Prescription (TENs unit) See instructions Osteopenia Please use TENs unit as per PT to help with pain. Contact prescribing physician if questions or concerns Unchanged Misc Prescription (test strips) See instructions to check BS, daily Contact prescribing physician if questions or concerns Unchanged semaglutide (semaglutide 2 mg/ 3 mL (0.25 mg or 0.5 mg dose) subcutaneous solution) 0.5 Milligram Subcutaneous Every week Contact prescribing physician if questions or concerns Pharmacy Information [facility]: [address] [place], [place] [id number] [phone] Allergies cefuroxime (Unknown) Problems Ongoing - Any problem that you are currently receiving treatment for. Anxiety and depression BMI 26.0-26.9,adult Carpal tunnel syndrome Change in voice Controlled type 2 diabetes mellitus without complication, without long-term current use of insulin Degenerative lumbar spinal stenosis Fibromyalgia Former smoker Hemorrhoid Hip pain, left Hypercholesterolemia Impingement of shoulder Loss of vision Macular degeneration of right eye Migraines Onychomycosis Osteopenia Overweight (BMI 25.0-29.9) Polyp of colon Rheumatoid a (more content not included)... Normal [facility] Family Medicine Office/Clini c Noteon 09-03-2024 Family Medicine Office/Clinic Note Family Medicine Office/Clinic Note Chief Complaint DM follow up Management of diabetes and hemorrhoids, with complaints of arthritis-related hand pain. HPI Staff 6m follow up Do you have any of the following symptoms? Foot Exam: 2023 Eye Exam: 07/25/24 Statin: atorvastatin 20mg Hgb A1C %: 5.9 % (02/20/24 14:42:00) Patient is here for follow up on hyperlipidemia: Do you have side effects from the medication? no Refill needed?: no Yearly Lipid labs: _ Chol: 202 mg/dL High (02/20/24 14:42:00) HDL: 65 mg/dL (02/20/24 14:42:00) LDL Direct: 123 mg/dL (02/20/24 14:42:00) Tri mg/dL (02/20/24 14:42:00) VLDL: 23 mg/dL (02/20/24 14:42:00) Would like script for hemorrhoids. No other concerns at this time. History of Present Illness The patient is a 69-year-old female presenting with management needs for type 2 diabetes mellitus and rheumatoid arthritis, along with evaluation for hemorrhoid symptoms. The patient has been monitoring her blood sugar levels intermittently, typically ranging from 109 to 113 mg/dL. A previous A1c test in January indicated a result of 5.9%. She continues to receive ocular injections, suggesting ongoing diabetic retinopathy treatments. She reports ongoing use of medication for her diabetes with a need for bi-annual A1c checks. Additionally, she has rheumatoid arthritis, which occasionally results in significant pain in her hands, impacting daily activities such as garment manipulation. Methotrexate has been described as effective in managing her arthritis symptoms. The patient also experiences hemorrhoid discomfort, a persistent condition for which she has used older topical treatments. Her lifestyle factors include a history of smoking, having quit, and a struggle with overweight status, given a BMI in the range of 26.0-26.9. Activities were disrupted due to sciatica, for which an MRI showed no significant findings, but weather concerns impeded further follow-up. She has expressed reluctance towards proposed back injections unless pain becomes intolerable. - Routine blood sugar checks advised - Continuous management of diabetic parameters, including regular A1c monitoring - Encouragement of lifestyle modifications due to overweight status - Smoking cessation counseling reinforcement Review of Systems PHQ Score Initial Depression Screen Score: 2 SCORE Physical Exam Vitals & Measurements T: 36.7 ???C(Tympanic) HR: 67(Peripheral) RR: 18 BP: 132/84 SpO2: 96% HT: 66 in HT: 168 cm WT: 74.1 kg WT: 163.362 lb BMI: 26.25 General: alert, no acute distress ENMT: oral mucosa moist Cardiovascular: Regular rate and rhythm, normal peripheral perfusion Respiratory: Lungs clear to auscultation, respirations non labored Extremities: no deformity, no trauma Neurological: oriented x 4, level of consciousness appropriate for age, CN II-XII intact, motor strength equal & normal bilaterally, speech normal Abdomen: Soft, Non-tender, Non-distended, + Bowel sounds Assessment/Plan 1. Controlled type 2 diabetes mellitus without complication, without long-term current use of insulin (E11.9: Type 2 diabetes mellitus without complications) Blood sugar levels are well-controlled within target ranges. Continue current diabetic management with emphasis on regular A1c testing bi-annually. Patient continues to receive ocular injections for diabetic retinopathy as needed. 2. Rheumatoid arthritis involving multiple sites with positive rheumatoid factor (M05.79: Rheumatoid arthritis with rheumatoid factor of multiple sites without organ or systems involvement) The patient's arthritis management with methotrexate remains effective. Monitor for any increased hand pain or swelling. Advise continuation with rheumatology follow-up. 3. Hemorrhoid (K64.9: Unspecified hemorrhoids) The patient reports using outdated topical treatment. Initiate updated topical treatment, potentially Proxasol, for symptomatic relief. 4. BMI 26.0-26.9,adult (Z68.26: Body mass index [BMI] 26.0-26.9, adult) Diet and exercise advised 5. Overweight (BMI 25.0-29.9) (E66.3: Overweight) Discussed continued diet and exercise strategies to manage weight and reduce BMI. 6. Former smoker (Z87.891: Personal history of nicotine dependence) Please continue to not smoke. 7. Sciatica (M54.30: Sciatica, unspecified side) MRI results showed no significant findings. Re-evaluation of symptoms and future follow-up planned. Injection therapy will be considered if pain becomes severe. Orders: hydrocortisone topical, 1 aleah, Topical, TID, 454 gm, Refill(s) 0, [email or web address], 168, cm, 09/03/24 13:02:00 EST, Height/Length Dosing, 74.1, kg, 09/03/24 13:02:00 EST, Weight Dosing 69-year-old female with a history of type 2 diabetes mellitus and rheumatoid arthritis presenting with both for ongoing management, experiencing symptomatic hemorrhoids. Diabetes is consistently controlled without complications, and rheumatoid arthritis manifests in hand pain manag (more content not included)... Normal [facility] Comment on above: Result Comment: Elec tronically Signed By: Navjot KAYE, Julee Byers\.br\Date and Time Signed: 09/03/24 13:21 EST HANK BY IFA SCREENon 06-26-20 Nuclear Ab pattern (S) [Interp] Nuclear homogeneous Normal [facility] Comment on above: Order Comment: Speci men Type: BLOOD SPECIMEN Ordering Facility: [facility] Address: [address] [place] [address] Performed By: #### A NAIFS #### [facility] CLIA [id number] [address] [place] [address] [place] Nuclear Ab Ql (S) Positive Abnormal Negative [facility] Comment on above: Order Comment: Speci brenda Type: BLOOD SPECIMEN Ordering Facility: [facility] Address: [address] [place] [address] Result Comment: Anti -nuclear antibody test is used as an aid in diagnosis of systemic autoimmune diseases. Where positive and clinically warranted, follow-up using disease-specific testing is recommended. Low positive titers are not uncommon with advanced age, certain chronic infections, and malignancies among others. Test methodology: Indirect fluorescence immunoassay (IFA) using HEp-2 cells. 1:160 Performed By: #### A NAIFS #### [facility] CLIA [id number] [address] [place] [address] [place] CBC W Auto Differential pane l (Bld)on 06-26-2024 Basophils (Bld) [#/Vol] 0.06 10*3/uL [facility] Basophils/100 WBC (Bld) 0.7 % [facility] Differential cell count method Nom (Bld) Auto [facility] Eosinophils (Bld) [#/Vol] 0.09 10*3/uL [facility] Eosinophils/100 WBC (Bld) 1.0 % [facility] Erythrocyte distribution width (RBC) [Ratio] 13.2 % 11.5 - 15.0 % [facility] Hematocrit (Bld) [Volume fraction] 45.8 % 36.0 - 46.0 % [facility] Hemoglobin (Bld) [Mass/Vol] 15.1 g/dL 11.5 - 15.5 g/dL [facility] Immature granulocytes (Bld) [#/Vol] 0.03 10*3/uL [facility] Immature granulocytes/100 WBC (Bld) 0.3 % [facility] Lymphocytes (Bld) [#/Vol] 1.71 10*3/uL [facility] Lymphocytes/100 WBC (Bld) 18.6 % [facility] MCH (RBC) [Entitic mass] 30.0 pg 26.0 - 34.0 pg [facility] MCHC (RBC) [Mass/Vol] 33.0 g/dL 30.5 - 36.0 g/dL [facility] MCV (RBC) [Entitic vol] 91.1 fL 80.0 - 100.0 fL [facility] Monocytes (Bld) [#/Vol] 0.60 10*3/uL [facility] Monocytes/100 WBC (Bld) 6.5 % [facility] Neutrophils (Bld) [#/Vol] 6.68 10*3/uL [facility] Neutrophils/100 WBC (Bld) 72.9 % [facility] Nucleated RBC (Bld) [#/Vol] [facility] Nucleated RBC/100 WBC (Bld) [Ratio] 0.0 % /100 WBC [facility] Platelet mean volume (Bld) [Entitic vol] 10.4 fL 9.0 - 12.7 fL [facility] Platelets (Bld) [#/Vol] 205 10*3/uL [facility] RBC (Bld) [#/Vol] 5.03 10*6/uL 3.90 - 5.2 0 m/uL [facility] WBC (Bld) [#/Vol] 9.17 10*3/uL [facility] Basophils (Bld) [#/Vol] 0.06 10*3/uL Normal <0.11 [facility] Comment on above: Order Comment: Speci men Type: BLOOD SPECIMENOrdering Facility: [facility] Address: [address] [place] [address] Performed By: #### 5 7021-8, 4536-7 ####[facility] [id number] [place] [address] [place] Basophils/100 WBC (Bld) 0.7 % Normal [facility] Comment on above: Order Comment: Speci men Type: BLOOD SPECIMENOrdering Facility: [facility] Address: [address] [place] [address] Performed By: #### 5 7021-8, 4536-7 ####[facility] [id number] [place] [address] [place] Differential cell count method Nom (Bld) Auto Normal [facility] Comment on above: Order Comment: Speci men Type: BLOOD SPECIMENOrdering Facility: [facility] Address: [address] [place] [address] Performed By: #### 5 7021-8, 4536-7 ####[facility] [id number] [place] [address] [place] Eosinophils (Bld) [#/Vol] 0.09 10*3/uL Normal <0.46 [facility] Comment on above: Order Comment: Speci men Type: BLOOD SPECIMENOrdering Facility: [facility] Address: [address] [place] [address] Performed By: #### 5 7021-8, 7 ####[facility] [id number] [place] [address] [place] Eosinophils/100 WBC (Bld) 1.0 % Normal [facility] Comment on above: Order Comment: Speci men Type: BLOOD SPECIMENOrdering Facility: [facility] Address: [address] [place] [address] Performed By: #### 5 7021-8, 4536-7 ####[facility] [id number] [place] [address] [place] Erythrocyte distribution width (RBC) [Ratio] 13.2 % Normal 11.5-15.0 [facility] Comment on above: Order Comment: Speci men Type: BLOOD SPECIMENOrdering Facility: [facility] Address: [address] [place] [address] Performed By: #### 5 7021-8, 4537-7 ####[facility] [id number] [place] [address] [place] Hematocrit (Bld) [Volume fraction] 45.8 % Normal 36.0-46.0 [facility] Comment on above: Order Comment: Speci men Type: BLOOD SPECIMENOrdering Facility: [facility] Address: [address] [place] [address] Performed By: #### 5 7021-8, 4536-7 ####[facility] [id number] [place] [address] [place] Hemoglobin (Bld) [Mass/Vol] 15.1 g/dL Normal 11.5-15.5 [facility] Comment on above: Order Comment: Speci men Type: BLOOD SPECIMENOrdering Facility: [facility] Address: [address] [place] [address] Performed By: #### 5 7021-8, 7-7 ####[facility] [id number] [place] [address] [place] Immature granulocytes (Bld) [#/Vol] 0.03 10*3/uL Normal <0.10 [facility] Comment on above: Order Comment: Speci men Type: BLOOD SPECIMENOrdering Facility: [facility] Address: [address] [place] [address] Performed By: #### 5 7021-8, 7-7 ####[facility] [id number] [place] [address] [place] Immature granulocytes/100 WBC (Bld) 0.3 % Normal [facility] Comment on above: Order Comment: Speci men Type: BLOOD SPECIMENOrdering Facility: [facility] Address: [address] [place] [address] Performed By: #### 5 7021-8, 4537-7 ####[facility] [id number] [place] [address] [place] Lymphocytes (Bld) [#/Vol] 1.71 10*3/uL Normal 1.00-4.00 [facility] Comment on above: Order Comment: Speci men Type: BLOOD SPECIMENOrdering Facility: [facility] Address: [address] [place] [address] Performed By: #### 5 7021-8, 4537-7 ####[facility] [id number] [place] [address] [place] Lymphocytes/100 WBC (Bld) 18.6 % Normal [facility] Comment on above: Order Comment: Speci men Type: BLOOD SPECIMENOrdering Facility: [facility] Address: [address] [place] [address] Performed By: #### 5 7021-8, 4536-7 ####[facility] [id number] [place] [address] [place] MCH (RBC) [Entitic mass] 30.0 pg Normal 26.0-34.0 [facility] Comment on above: Order Comment: Speci men Type: BLOOD SPECIMENOrdering Facility: [facility] Address: [address] [place] [address] Performed By: #### 5 7021-8, 4537-7 ####[facility] [id number] [place] [address] [place] MCHC (RBC) [Mass/Vol] 33.0 g/dL Normal 30.5-36.0 [facility] Comment on above: Order Comment: Speci men Type: BLOOD SPECIMENOrdering Facility: [facility] Address: [address] [place] [address] Performed By: #### 5 7021-8, 4536-7 ####[facility] [id number] [place] [address] [place] MCV (RBC) [Entitic vol] 91.1 fL Normal 80.0-100.0 [facility] Comment on above: Order Comment: Speci men Type: BLOOD SPECIMENOrdering Facility: [facility] Address: [address] [place] [address] Performed By: #### 5 7021-8, 7 ####[facility] [id number] [place] [address] [place] Monocytes (Bld) [#/Vol] 0.60 10*3/uL Normal <0.87 [facility] Comment on above: Order Comment: Speci men Type: BLOOD SPECIMENOrdering Facility: [facility] Address: [address] [place] [address] Performed By: #### 5 7021-8, 7 ####[facility] [id number] [place] [address] [place] Monocytes/100 WBC (Bld) 6.5 % Normal [facility] Comment on above: Order Comment: Speci men Type: BLOOD SPECIMENOrdering Facility: [facility] Address: [address] [place] [address] Performed By: #### 5 7021-8, 7 ####[facility] [id number] [place] [address] [place] Neutrophils (Bld) [#/Vol] 6.68 10*3/uL Normal 1.45-7.50 [facility] Comment on above: Order Comment: Speci men Type: BLOOD SPECIMENOrdering Facility: [facility] Address: [address] [place] [address] Performed By: #### 5 7021-8, 7-7 ####[facility] LABCLIA [id number] [place] [address] [place] Neutrophils/100 WBC (Bld) 72.9 % Normal [facility] Comment on above: Order Comment: Speci men Type: BLOOD SPECIMENOrdering Facility: [facility] Address: [address] [place] [address] Performed By: #### 5 7021-8, 4536-7 ####[facility] LABCLIA [id number] [place] [address] [place] Nucleated RBC (Bld) [#/Vol] 10*3/uL Normal <0.01 [facility] Comment on above: Order Comment: Speci men Type: BLOOD SPECIMENOrdering Facility: [facility] Address: [address] [place] [address] Performed By: #### 5 7021-8, 4536-7 ####[facility] LABCLIA [id number] [place] [address] [place] Nucleated RBC/100 WBC (Bld) [Ratio] 0.0 /100 WBC Normal [facility] Comment on above: Order Comment: Speci men Type: BLOOD SPECIMENOrdering Facility: [facility] Address: [address] [place] [address] Performed By: #### 5 7021-8, 4536-7 ####[facility] LABCLIA [id number] [place] [address] [place] Platelet mean volume (Bld) [Entitic vol] 10.4 fL Normal 9.0-12.7 [facility] Comment on above: Order Comment: Speci men Type: BLOOD SPECIMENOrdering Facility: [facility] Address: [address] [place] [address] Performed By: #### 5 7021-8, 7-7 ####[facility] LABCLIA [id number] [place] [address] [place] Platelets (Bld) [#/Vol] 205 10*3/uL Normal 150-400 [facility] Comment on above: Order Comment: Speci men Type: BLOOD SPECIMENOrdering Facility: [facility] Address: [address] [place] [address] Performed By: #### 5 7021-8, 4537-7 ####[facility] LABCLIA [id number] [place] [address] [place] RBC (Bld) [#/Vol] 5.03 10*6/uL Normal 3.90-5.[address] [facility] Comment on above: Order Comment: Speci men Type: BLOOD SPECIMENOrdering Facility: [facility] Address: [address] [place] [address] Performed By: #### 5 7021-8, 4537-7 ####[facility] LABCLIA [id number] [place] [address] [place] WBC (Bld) [#/Vol] 9.17 10*3/uL Normal 3.70-11.[address] [facility] Comment on above: Order Comment: Speci men Type: BLOOD SPECIMENOrdering Facility: [facility] Address: [address] [place] [address] Performed By: #### 5 7021-8, 4537-7 ####[facility] LABCLIA [id number] [place] [address] [place] CNOVon 06-26-2024 CNOV Office Visit (ERWIN ) YAMILE SIDDIQUI ([id number]) 1955 F Date Time Provider Department 06/26/24 1:00 PM HARISH PAULA During your visit today, we recorded the following information about you: Pulse Weight Height 90/minute 74.6 kg 1.702 m Harish Paula MD 06/26/2024 1:08 PM Signed [facility] Out[facility] Date of Service: 06/26/2024 Patient: Yamile Siddiqui Medical Record: [id number] Primary Care Physician: Aleksander Jimenez MD Referring Provider: SELF Last Rheumatology visit: 03/20/2024 (with Harish Paula) Chief complaint: Follow Up (Left sided groin pain x 1 day) History of Present Illness Yamile Siddiqui is a 69 year old White female with medical history of rheumatoid arthritis, hyperlipidemia, diabetes mellitus, history of tobacco use, Histoplasmosis right eye in ( treated), 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 She is currently taking methotrexate sodium, prednisone. Yamile is both RF - 49 (11/09/2022) and CCP - 275 (11/09/2022) positive. History of rheumatoid arthritis She was being followed by local rheumatology in [place], but her daughter wanted her to get a 2nd opinion at [facility]. Seen by Dr. 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 Patient reports pain over MCPs, PIPs, wrists, [...] Continue folic acid to 2 mg daily 10/2023-no synovitis, No synovitis on exam today Continue methotrexate 20 mg weekly, folic acid to 2 mg daily 02/2024 She reports pain in her hands after activities, otherwise reports doing good with no joint swelling. Continues to have low back pain radiating to left leg. Denies any new symptoms 06/2024-seen with daughter, continues to have low back pain with sciatica, seen by orthopedics, had x-ray of her spine that showed degenerative changes, awaiting MRI. She has noted some swelling over right second MCP had swelling over right wrist that lasted for about 3 days. Denies any other symptoms Sister has lupus, worried if she also has lupus Previous workups 10/2022 RF 49, CCP 275 04/2018 RF [...] lower lumbar spine. Patient-Entered Data PAIN EVALUATION 06/19/2024 1857 Pain Level: 6 Pain Location: Back-Middle Description: Aching;Burning;Crampin g;Pressure;Pulsating;S harp;Shooting;Sore;Sta bbing; Stiffness;Tenderness;T hrobbing;Tightness Duration Units: Hours Frequency: Intermittent Intervention/Comfort measure: Medication;Reposition; Relaxation;Heat PROMIS Assessments 03/17/2024 05/23/2024 06/19/2024 PROMIS Assessments Physical Health Percentile 22 (more content not included)... Normal [facility] CRP SerPl-mCncon 06-26-2024 CRP [Mass/Vol] 0.8 mg/dL Normal <0.9 [facility] Comment on above: Order Comment: Speci men Type: BLOOD SPECIMENOrdering Facility: [facility] Address: [address] [place] [address] Performed By: #### 1 988-5, 67151-3 ####[facility] LABCLIA [id number] [place] [address] [place] Centromere Ab IF Ql (S)on Centromere Ab Qn (S) <0.2 Normal <1.0 [facility] Comment on above: Order Comment: Speci brenda Type: BLOOD SPECIMENOrdering Facility: [facility] Address: [address] [place] [address] Result Comment: Anti -centromere antibody is used as in aid in diagnosis of systemic sclerosis. Clinical correlation is required. Test Methodology: Multiplex flow immunoassay. Performed By: #### 1 8323-6, 60830-0, 42120-9, 03588-3, 23255-4, 46835-0, 71375-5, 02183-6 ####[facility] LABCLIA [id number] [place] [id number] [place] CENTROMERE AB QUAL Negative Normal Negative [facility] Comment on above: Order Comment: Mona gutierrez Type: BLOOD SPECIMENOrdering Facility: [facility] Address: [address] [place] [address] Performed By: #### 1 8323-6, 65846-8, 85161-7, 71414-6, 27932-8, 93419-0, 94760-0, 54020-6 ####[facility] LABCLIA [id number] [place] [address] [place] Chromatin Ab Qnon 06-26-2024 CHROMATIN AB QUAL Negative Normal Negative [facility] Comment on above: Order Comment: Speci men Type: BLOOD SPECIMEN [facility] Address: [address] [place] [address] Performed By: #### 5 7021-8 #### [facility] CLIA [id number] [address] [place] [address] [place] Chromatin Ab SerPl-aCncon Chromatin Ab Qn <0.2 Normal <1.0 [facility] Comment on above: Order Comment: Speci men Type: BLOOD SPECIMEN [facility] Address: [address] [place] [address] Result Comment: Test Methodology: Multiplex flow immunoassay. Performed By: #### 5 7021-8 #### [facility] CLIA [id number] [address] [place] [address] [place] Comprehensive metabolic 2000 panelon 06-26-2024 Albumin [Mass/Vol] 4.1 g/dL Normal 3.9-4.9 [facility] Comment on above: Order Comment: Speci men Type: BLOOD SPECIMENOrdering Facility: [facility] Address: [address] [place] [address] Performed By: #### 1 988-5, 60986-9 ####[facility] LABCLIA [id number] [place] [address] [place] ALP [Catalytic activity/Vol] 76 U/L Normal 34-123 [facility] Comment on above: Order Comment: Speci men Type: BLOOD SPECIMENOrdering Facility: [facility] Address: [address] [place] [address] Performed By: #### 1 988-5, 17072-4 ####[facility] LABCLIA [id number] [place] [address] [place] ALT [Catalytic activity/Vol] 15 U/L Normal 7-38 [facility] Comment on above: Order Comment: Speci men Type: BLOOD SPECIMENOrdering Facility: [facility] Address: [address] [place] [address] Performed By: #### 1 988-5, 66741-8 ####[facility] LABCLIA [id number] [place] [address] [place] Anion gap [Moles/Vol] 14 mmol/L Normal 8-15 [facility] Comment on above: Order Comment: Speci men Type: BLOOD SPECIMENOrdering Facility: [facility] Address: [address] [place] [address] Performed By: #### 1 988-5, 85381-1 ####[facility] LABCLIA [id number] [place] [address] [place] AST [Catalytic activity/Vol] 18 U/L Normal 13-35 [facility] Comment on above: Order Comment: Speci men Type: BLOOD SPECIMENOrdering Facility: [facility] Address: [address] [place] [address] Performed By: #### 1 988-5, 87621-2 ####[facility] LABCLIA [id number] [place] [address] [place] Bilirubin [Mass/Vol] 0.6 mg/dL Normal 0.2-1.3 [facility] Comment on above: Order Comment: Speci men Type: BLOOD SPECIMENOrdering Facility: [facility] Address: [address] [place] [address] Performed By: #### 1 988-5, 46163-8 ####[facility] LABCLIA [id number] [place] [address] [place] Calcium [Mass/Vol] 9.5 mg/dL Normal 8.5-10.2 [facility] Comment on above: Order Comment: Speci men Type: BLOOD SPECIMENOrdering Facility: [facility] Address: [address] [place] [address] Performed By: #### 1 988-5, 47236-8 ####[facility] LABCLIA [id number] [place] [id number] [place] Chloride [Moles/Vol] 102 mmol/L Normal 98-107 [facility] Comment on above: Order Comment: Speci men Type: BLOOD SPECIMENOrdering Facility: [facility] Address: [address] [place] [address] Performed By: #### 1 988-5, 23477-2 ####[facility] LABCLIA [id number] [place] [address] [place] CO2 [Moles/Vol] 24 mmol/L Normal 22-30 [facility] Comment on above: Order Comment: Speci men Type: BLOOD SPECIMENOrdering Facility: [facility] Address: [address] [place] [address] Performed By: #### 1 988-5, 71758-9 ####[facility] LABIA [id number] [place] [address] [place] Creatinine [Mass/Vol] 0.79 mg/dL Normal 0.58-0.96 [facility] Comment on above: Order Comment: Speci men Type: BLOOD SPECIMENOrdering Facility: [facility] Address: [address] [place] [address] Performed By: #### 1 988-5, ####[facility] LABIA [id number] [place] [address] [place] Creatinine and Glomerular filtration rate.predicted panel (S/P/Bld) 82 mL/min/1.73m??? Normal >=60 [facility] Comment on above: Order Comment: Speci men Type: BLOOD SPECIMENOrdering Facility: [facility] Address: [address] [place], [place] [address] Result Comment: Rimma mated Glomerular Filtration Rate [...] reflect actual GFR. Performed By: #### 1 988-5, 49575-6 ####[facility] LABCLIA [id number] [place] [address] [place] Glucose [Mass/Vol] 102 mg/dL High 74-99 [facility] Comment on above: Order Comment: Mona gutierrez Type: BLOOD SPECIMENOrdering Facility: [facility] Address: [address] [place] [address] Result Comment: The [place] Diabetes Association (ADA) provides guidance for cutoff [...] Standards of Medical Care in Diabetes 2016, [place] Diabetes Association. Diabetes Care. 2016.39(Suppl 1). Performed By: #### 1 988-5, 05933-2 ####[facility] LABIA [id number] [place] [id number] [place] Potassium [Moles/Vol] 4.5 mmol/L Normal 3.7-5.1 [facility] Comment on above: Order Comment: Mona gutierrez Type: BLOOD SPECIMENOrdering Facility: [facility] Address: [address] [place] [address] Performed By: #### 1 988-5, 02383-5 ####[facility] LABCLIA [id number] [place] [address] [place] Protein [Mass/Vol] 6.4 g/dL Normal 6.3-8.0 [facility] Comment on above: Order Comment: Speci men Type: BLOOD SPECIMENOrdering Facility: [facility] Address: [address] [place] [address] Performed By: #### 1 988-5, 46250-6 ####[facility] LABCLIA [id number] [place] [address] [place] Sodium [Moles/Vol] 140 mmol/L Normal 136-144 [facility] Comment on above: Order Comment: Speci men Type: BLOOD SPECIMENOrdering Facility: [facility] Address: [address] [place] [address] Performed By: #### 1 988-5, 31341-6 ####[facility] LABCLIA [id number] [place] [address] [place] Urea nitrogen [Mass/Vol] 13 mg/dL Normal 7-21 [facility] Comment on above: Order Comment: Speci men Type: BLOOD SPECIMENOrdering Facility: [facility] Address: [address] [place] [address] Performed By: #### 1 988-5, 83733-0 ####[facility] LABCLIA [id number] [place] [address] [place] DNA double strand Ab IA Qn ( S)on 06-26-2024 DNA ANTIBODY 9 IU/mL Normal <=200 [facility] Comment on above: Order Comment: Speci men Type: BLOOD SPECIMENOrdering Facility: [facility] Address: [address] [place] [address] Result Comment: Nega tive: <200 IU/mL Equivocal: 201-300 IU/mL Moderate Positive: 301-800 IU/mL Strong Positive: >801 IU/mL Performed By: #### 3 2677-7 ####[facility] LABCLIA [id number] [place] [address] [place] DNA ANTIBODY QUALITATIVE INTERPRETATION Negative Normal Negative [facility] Comment on above: Order Comment: Speci men Type: BLOOD SPECIMENOrdering Facility: [facility] Address: [address] [place] [address] Performed By: #### 3 2677-7 ####[facility] [id number] [place] [address] [place] NICK Jo1 Ab Ser-aCncon 2023 Jenn-1 extractable nuclear Ab Qn (S) <0.2 Normal <1.0 [facility] Comment on above: Order Comment: Speci men Type: BLOOD SPECIMENOrdering Facility: [facility] Address: [address] [place] [address] Performed By: #### 1 8323-6, 05995-6, 42776-2, 01353-3, 65096-5, 70121-3, 82041-9, 74128-7 ####[facility] LABIA [id number] [place] [address] [place] NICK ACADEMIC ADMINISTRATOR Ab Ser-aCncon 2023 Ribonucleoprotein extractable nuclear Ab Qn (S) <0.2 Normal <1.0 [facility] Comment on above: Order Comment: Speci men Type: BLOOD SPECIMENOrdering Facility: [facility] Address: [address] [place] [address] Performed By: #### 1 8323-6, 87029-9, 37038-6, 21793-2, 33753-0, 22144-8, 95910-2, 33842-1 ####[facility] LABIA [id number] [place] [address] [place] NICK SM IgG Ser-aCncon 2023 Teran extractable nuclear IgG Qn (S) <0.2 Normal <1.0 [facility] Comment on above: Order Comment: Speci men Type: BLOOD SPECIMEN [facility] Address: [address] [place] [address] Performed By: #### 5 7021-8 #### [facility] CLIA [id number] [address] [place] [address] [place] NICK SS-A Ab Ser-aCncon 06-26 Sjogrens syndrome-A extractable nuclear Ab Qn (S) <0.2 Normal <1.0 [facility] Comment on above: Order Comment: Speci men Type: BLOOD SPECIMENOrdering Facility: [facility] Address: [address] [place] [address] Result Comment: Test Methodology: Multiplex flow immunoassay. Performed By: #### 1 8323-6, 48844-9, 82816-6, 02873-3, 47114-0, 42206-5, 38967-4, 33352-7 ####[facility] LABCLIA [id number] [address] [place] NICK SS-B Ab Ser-aCncon 06-26 Sjogrens syndrome-B extractable nuclear Ab Qn (S) <0.2 Normal <1.0 [facility] Comment on above: Order Comment: Speci men Type: BLOOD SPECIMEN [facility] Address: [address] [place] [address] Result Comment: Anti -SSB (anti-La) antibody is used as an aid in diagnosis of a variety of systemic autoimmune diseases, especially for Sjogren's syndrome and systemic lupus erythematosus. Clinical correlation is required. Test Methodology: Multiplex flow immunoassay. Performed By: #### 5 7021-8 #### [facility] CLIA [id number] [address] [place] [address] [place] ESR Westergren method (Bld) [Velocity]on 06-26-2024 ESR (Bld) [Velocity] 8 mm/h [facility] Interpretation and review of laboratory results Normal [facility] ESR (Bld) [Velocity] 8 mm/h Normal 0-20 [facility] Comment on above: Order Comment: Speci men Type: BLOOD SPECIMENOrdering Facility: [facility] Address: [address] [place] [address] Performed By: #### 5 7021-8, 4537-7 ####[facility] LABCLIA [id number] [place] [address] [place] Jenn-1 extractable nuclear Ab Qn (S)on 06-26-2024 JENN 1 ANTIBODY QUAL Negative Normal Negative [facility] Comment on above: Order Comment: Speci men Type: BLOOD SPECIMENOrdering Facility: [facility] Address: [address] [place] [address] Result Comment: Anti -JENN-1 antibody is used as an aid in diagnosis of polymyositis and dermatomyositis especially with pulmonary involvement. A negative result cannot rule out polymyositis or dermatomyositis. Clinical correlation is required. Test Methodology: Multiplex flow immunoassay. Performed By: #### 1 8323-6, 30863-3, 34793-5, 01177-8, 51581-5, 42690-9, 53549-0, 42971-7 ####[facility] LABIA [id number] [place] [address] [place] Ribonucleoprotein extractabl e nuclear Ab Qn (S)on 06-26-2024 ANTI-ACADEMIC ADMINISTRATOR QUAL Negative Normal Negative [facility] Comment on above: Order Comment: Speci men Type: BLOOD SPECIMENOrdering Facility: [facility] Address: [address] [place] [address] Performed By: #### 1 8323-6, 18707-3, 72897-6, 28408-1, 07127-8, 35247-5, 36488-7, 16675-4 ####[facility] LABIA [id number] [place] [address] [place] RIBOSOMAL ACADEMIC ADMINISTRATOR QUAL Negative Normal Negative [facility] Comment on above: Order Comment: Speci men Type: BLOOD SPECIMENOrdering Facility: [facility] Address: [address] [place] [address] Result Comment: Anti -Ribosomal RNA (Ribosomal P) antibody is used as an aid in diagnosis of systemic autoimmune diseases especially systemic lupus erythematosus and mixed connective tissue disease. Cross-reactivity with Anti-teran antibody is not uncommon. Clinical correlation is required. Test Methodology: Multiplex flow immunoassay. Performed By: #### 1 8323-6, 84069-3, 39274-4, 09931-8, 27689-5, 52911-5, 65327-1, 79507-5 ####[facility] LABIA [id number] [place] [address] [place] SCL-70 extractable nuclear I gG IA Qn (S)on 06-26-2024 SCLERODERMA AB QUAL Negative Normal Negative [facility] Comment on above: Order Comment: Speci men Type: BLOOD SPECIMENOrdering Facility: [facility] Address: [address] [place] [address] Performed By: #### 1 8323-6, 08102-2, 85304-8, 01414-9, 27485-1, 16043-7, 12735-7, 93192-9 ####[facility] LABIA [id number] [address] [place] SCLERODERMA IGG AB <0.2 Normal <1.0 [facility] Comment on above: Order Comment: Speci men Type: BLOOD SPECIMENOrdering Facility: [facility] Address: [address] [place] [address] Result Comment: Scl- 70/Scleroderma antibody test is used as an aid in diagnosis of systemic sclerosis especially the diffuse cutaneous form. A negative result cannot rule out systemic sclerosis. The final interpretation should consider clinical picture and other test results such as anti-centromere antibody. Test Methodology: Multiplex flow immunoassay. Performed By: #### 1 8323-6, 93877-4, 61463-5, 50739-6, 64842-1, 09605-9, 09452-5, 74212-3 ####[facility] LABCLIA [id number] [address] [place] Sjogrens syndrome-A extracta ble nuclear Ab Qn (S)on 06-26-2024 SSA ANTIBODY QUAL Negative Normal Negative [facility] Comment on above: Order Comment: Speci men Type: BLOOD SPECIMENOrdering Facility: [facility] Address: [address] [place] [address] Performed By: #### 1 8323-6, 17481-1, 54502-2, 90909-8, 98433-3, 85177-1, 58713-8, 37859-8 ####[facility] LABCLIA [id number] [place] [address] [place] Sjogrens syndrome-B extracta ble nuclear Ab Qn (S)on 06-26-2024 SSB ANTIBODY QUAL Negative Normal Negative [facility] Comment on above: Order Comment: Speci men Type: BLOOD SPECIMEN [facility] Address: [address] [place] [address] Performed By: #### 5 7021-8 #### [facility] CLIA [id number] [address] [place] [address] OF L[place] Teran extractable nuclear Ig G Qn (S)on 06-26-2024 SM ANTIBODY QUAL Negative Normal Negative [facility] Comment on above: Order Comment: Speci men Type: BLOOD SPECIMEN [facility] Address: [address] [place] [address] Result Comment: Anti -Sm (Teran) antibody is used as an aid in diagnosis of systemic lupus erythematosus and its presence is associated with renal disease. A negative result cannot rule out systemic lupus erythematosus. Clinical correlation is required. Test Methodology: Multiplex flow immunoassay. Performed By: #### 5 7021-8 #### [facility] CLIA [id number] [address] [place] [address] [place] CNOVon 05-29-2024 CNOV Office Visit (OTOLLN ) YAMILE SIDDIQUI ([id number]) 1955 F Date Time Provider Department 05/29/24 1:00 PM MANOHAR MCDOWELL During your visit today, we recorded the following information about you: Temperature 98 degrees Manohar Mcdowell PA-C 05/29/2024 1:01 PM Signed [facility] FOLLOW-UP CLINIC NOTE CC: Ms. Siddiqui is a 69 year old female who comes in for follow up. Patient was last seen on 02/07/2024 with plan of care: ASSESSMENT: Change in voice (primary encounter diagnosis) Hoarseness Environmental and seasonal allergies Pnd (post-nasal drip) PLAN: - Trial of Flonase, add Astelin and nasal saline irrigations; instructed patient on appropriate use, side effects and need for daily adherence to realize benefits - Educated patient on GERD, including diet and lifestyle modifications, alginate therapy; patient education handout provided, consider trial of PPI - Aggressive allergy management, avoidance of allergic triggers, daily oral antihistamine, nasal saline rinses - Advised patient on red flag warning signs, symptoms that warrant immediate evaluation in ER - Follow up in 8 weeks; sooner if clinically indicated Manohar Mcdowell PA-C [facility] ASSESSMENT: Pnd (post-nasal drip) (primary encounter diagnosis) Environmental and seasonal allergies Hoarseness PLAN: - Continue Flonase, Astelin and nasal saline irrigations; instructed patient on appropriate use, side effects and need for daily adherence to realize benefits - Aggressive allergy management, avoidance of allergic triggers, daily oral antihistamine, nasal saline rinses - Educated patient on GERD, including diet and lifestyle modifications, alginate therapy; patient education handout provided, consider trial of PPI - Advised patient on red flag warning signs, symptoms that warrant immediate evaluation in ER - Follow up as clinically indicated Manohar Mcdowell PA-C [facility] HPI: Since last visit, patient reports significant improvement in PND, throat clearing, rhinitis since initiation of Flonase, Astelin. Patient reports she notices symptoms flare up, intermittent hoarseness when she does not take nasal sprays for a few days at a time. Patient reports sinus pressure, sinus pain s/p ocular injections which resolves after a few days. Patient reports most benefit with nasal saline rinses. No new head or neck concerns today. Patient accompanied by daughter during duration of visit today. HPI 02/07/2024: 68 year old female presents to clinic for evaluation of change in voice. Patient reports since June 2023, she has experienced some degree of hoarseness. Patient endorses PND, throat clearing, constant rhinitis, intermittent sore throat. Patient endorses history of seasonal and environmental allergies, oral antihistamine PRN and Flonase PRN in the past without perceived benefit. Patient endorses occasional GERD, no interventions. Patient former smoker, quit in 2017. Patient denies dysphagia, odynophagia, throat swelling, airway compromise. Patient accompanied by daughter during duration of visit today. Past medical history: PAST MEDICAL HISTORY Diagnosis Date Hyperlipidemia 07/27/2010 Macular degeneration 07/27/2010 Normal coronary arteries 07/2010 [facility] performed for evaluation chest pain, abnormal stress test UTI (urinary tract infection) 07/27/2010 Past surgical history: PAST SURGICAL HISTORY Procedure Laterality Date CARPAL TUNNEL HYSTERECTOMY HX 1991 LIG/TRNSXJ FLP TUBE ABDL/VAG APPR UNI/BI in the OVARIAN CYSTECTOMY in the Current medication(s): Current Outpatient Medications Medication Sig methotrexate 2.5 mg tablet Take 8 tablets by mouth one time a week. folic acid 1 mg tablet Take 2 tablets by mouth once daily. fluticasone (FLONASE ALLERGY RELIEF) 50 mcg/actuation nasal spray Use 1 [place] in each nostril two times a day. azelastine 0.1% nasal spray Use 1 [place] in each nostril two times a day. INV SEMAGLUTIDE, OZEMPIC,, 2 MG/1.5 ML, PEN [...] BY MOUTH DAILY WITH BREAKFAST AND supper No current facility-administered medications for this visit. Allergies: ALLERGIES Allergen Reactions Cefuroxime Hives Social history: Social History Tobacco Use Smoking status: Former Current packs/day: 0.00 Average packs/day: 0.8 packs/day for 40.0 years (30.0 ttl pk-yrs) Types: Cigarettes Start date: 07/24/1975 Quit date: 07/24/2015 Years since quittin.8 Smokeless tobacco: Never Tobacco comments: active smok (more content not included)... Normal [facility] Ambulatory Visit Summaryon 1 Ambulatory Visit Summary Ambulatory Visit Summary YAMILE SIDDIQUI :1955 Visit Date:05/09/2024 Ambulatory Visit Instructions Your Diagnosis Hip pain, left Impingement of shoulder Loss of vision BMI 26.0-26.9,adult Overweight Former smoker Encounter for immunization Your Care Team Attending Physician - Julee De Los Santos MD Primary Care Physician - Julee De Los Santos MD This Is Your Medications List Misc Prescription (Handicap placard) Misc Prescription (Misc DME Prescription) Misc Prescription (TENs unit) acetaminophen (Tylenol) atorvastatin (atorvastatin 20 mg Tab) azelastine nasal (azelastine hydrochloride 137 mcg spray) fluticasone nasal (fluticasone Nasal 0.05 mg/inh [place]) folic acid metformin (metformin 850 mg Tab) methotrexate (methotrexate 2.5 mg Tab) semaglutide (semaglutide 2 mg/3 mL (0.25 mg or 0.5 mg dose) subcutaneous solution) Procedures Performed Cardiac catheter, Carpal tunnel release, Cataracts, Colonoscopy, Extn - Extraction of tooth, EMERALD BSO - Total abdominal hysterectomy and bilateral salpingo-oophorectomy. Discharge Vitals Temperature (Oral) 36.6 ?C Heart Rate (Peripheral) 72 Respiratory Rate 16 Blood Pressure 136/82 Height 168 cm Height 66 in Weight 74.7 kg Weight 164.34 lb BMI 26.47 What to do next Scheduled Follow-Up Appointments Monday 1:00 PM EST With: Julee De Los Santos MD Where: [address] [address]- Monday 1:00 PM EST With: Where: [place] [phone]- Medications What How Much When Why Instructions Unchanged acetaminophen (Tylenol) 650 Milligram By Mouth Every 8 hours as needed for as needed for pain Unchanged atorvastatin (atorvastatin 20 mg Tab) See instructions TAKE 1 TABLET BY MOUTH DAILY Unchanged azelastine nasal (azelastine hydrochloride 137 mcg spray) 1 Sprays Nasal Inhalation 2 times a day Unchanged fluticasone nasal (fluticasone Nasal 0.05 mg/ inh [place]) 2 Sprays Nasal Inhalation Every day each nostril Unchanged folic acid 2 Milligram By Mouth [...] sugars once a day. Dx E11.8 Unchanged Misc Prescription (TENs unit) See instructions Osteopenia Please use TENs unit as per PT to help with pain. Unchanged semaglutide (semaglutide 2 mg/ 3 mL (0.25 mg or 0.5 mg dose) subcutaneous solution) 0.5 Milligram Subcutaneous Every week Medications and Immunizations Administered Given Fluzone High-Dose PF Prefilled Syringe , 0.5 mL, IntraMuscular. For: BMI 26.0-26.9,adult, Overweight influenza virus vaccine, inactivated, IntraMuscular Allergies cefuroxime (Unknown) Problems Ongoing - Any problem that you are currently receiving treatment for. Anxiety and depression Carpal tunnel syndrome Change in voice Controlled type 2 diabetes mellitus without complication, without long-term current use of insulin Degenerative lumbar spinal stenosis Encounter for diabetic foot exam Fibromyalgia Hip pain, left Hypercholesterolemia Impingement of shoulder Loss of vision [...] you for choosing us for your care. 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 he rxed her what she thinks is meloxicam but she hasn't picked it up and started it yet and she will recheck with him in 6 weeks Pain characteristics: Pain location: rt back/hip Intensity:_none Onset: ongoing Medication used: tylenol and steroids Cannot get the tens unit approved Flu: will take today History of Present Illness The patient is a 69-year-old female presenting with loss of vision. The patient reports ongoing issues with visual impairment in the left eye, for which she receives injections every 30 days. The treatment location has changed from [place] to [place] due to her previous retina specialist's relocation and job cessation, requiring the assignment of a new physician. Despite the interventions, there remains fluid in the eye, and it appears as though the therapeutic response is being monitored with each procedure. The patient states that with corrective lenses, her vision improves, but excess fluid remains a persistent issue. Furthermore, the patient previously experienced shoulder pain attributable to shoulder impingement. Currently, she gratefully reports a resolution of the shoulder discomfort without the need for further medical intervention at this stage. However, she conveys a prior recommendation for a cortisone injection, which she opted to forego due to anticipated pain from the procedure. Review of Systems PHQ Score Initial Depression Screen Score: 0 SCORE Physical Exam Vitals & Measurements T: 36.6 ?C(Oral) HR: 72(Peripheral) RR: 16 BP: 136/82 SpO2: 97% HT: 66 in HT: 168 cm WT: 74.7 kg WT: 164.34 lb BMI: 26.47 General: alert, no acute distress ENMT: oral mucosa moist Cardiovascular: Regular rate and rhythm, normal peripheral perfusion Respiratory: Lungs clear to auscultation, respirations non labored Extremities: no deformity, no trauma Neurological: oriented x 4, level of consciousness appropriate for age, CN II-XII intact, motor strength equal & normal bilaterally, speech normal Abdomen: Soft, Non-tender, Non-distended, + Bowel sounds Assessment/Plan 1. Hip pain, left (M25.552: Pain in left hip) Improved significantly. Continue seeing Ortho. Ordered: influenza virus vaccine, inactivated, 0.5 mL, Susp-Inj, IntraMuscular, Once, Stop date 05/09/24 14:00:00 EDT, Routine, Start date 05/09/24 14:00:00 EDT Body Mass Index (BMI) documented 3008F Current tobacco non-user 1036F Depression Screening Negative 3352F Influenza immunization administered or previously received 4274F Most recent diastolic blood pressure 80-89 mm Hg 3079F Patient screen for fall risk: no falls in last year or 1 fall with no injury in last year 1101F Systolic BP 130-139 mm Hg (Most Recent) 3075F 2. Impingement of shoulder (M25.819: Other specified joint disorders, unspecified shoulder) Resolved at this time. Ordered: influenza virus vaccine, inactivated, 0.5 mL, Susp-Inj, IntraMuscular, Once, Stop date 05/09/24 14:00:00 EDT, Routine, Start date 05/09/24 14:00:00 EDT Body Mass Index (BMI) documented 3008F Current tobacco non-user 1036F Depression Screening Negative 3352F Influenza immunization administered or previously received 4274F Most recent diastolic blood pressure 80-89 mm Hg 3079F Patient screen for fall risk: no falls in last year or 1 fall with no injury in last year 1101F Systolic BP 130-139 mm Hg (Most Recent) 3075F 3. Loss of vision (H54.7: Unspecified visual loss) Seeing a retinal specialist. This is in the left eye. Ordered: influenza virus vaccine, inactivated, 0.5 mL, Susp-Inj, IntraMuscular, Once, Stop date 05/09/24 14:00:00 EDT, Routine, Start date 05/09/24 14:00:00 EDT Body Mass Index (BMI) documented 3008F Current tobacco non-user 1036F Depression Screening Negative 3352F Influenza immunization administered or previously received 4274F Most recent diastolic blood pressure 80-89 mm Hg 3079F Patient screen for fall risk: no falls in last year or 1 fall with no injury in last year 1101F Systolic BP 130-139 mm Hg (Most Recent) 3075F 4. BMI 26.0-26.9,adult (Z68.26: Body mass index [BMI] 26.0-26.9, adult) BMI education added Ordered: influenza virus vaccine, inactivated, 0.5 mL, Susp-Inj, IntraMuscular, Once, Stop date 05/09/24 14:00:00 EDT, Routine, Start date 05/09/24 14:00:00 EDT Body Mass Index (BMI) documented 3008F Current tobacco non-user 1036F Depression Screening Negative 3352F Influenza immunization administered or previously received 4274F Most recent diastolic blood pressure 80-89 mm Hg 3079F Patient screen for fall risk: no falls in last year or 1 fall with no injury in last year 1101F Systolic BP 130-139 mm Hg (Most Recent) 3075F 5. Overweight (E66.3: Overweight) Diet and exercise adv (more content not included)... Normal [facility] Comment on above: Result Comment: Elec tronically Signed By: Julee De Los Santos MD\.br\Date and Time Signed: 05/09/24 13:58 EDT Ambulatory Visit Summaryon 0 04-18-2024 Ambulatory Visit Summary Ambulatory Visit Summary YAMILE SIDDIQUI Amber :1955 Visit Date:04/18/2024 Ambulatory Visit Instructions Your Diagnosis Hip pain, left Anxiety and depression Depression, unspecified Your Care Team Attending Physician - Julee De Los Santos MD Primary Care Physician - Julee De Los Santos MD This Is Your Medications List Misc Prescription (Handicap placard) Misc Prescription (Misc DME Prescription) Misc Prescription (TENs unit) acetaminophen (Tylenol) atorvastatin (atorvastatin 20 mg Tab) azelastine nasal (azelastine hydrochloride 137 mcg spray) fluticasone nasal (fluticasone Nasal 0.05 mg/inh [place]) folic acid metformin (metformin 850 mg Tab) methotrexate (methotrexate 2.5 mg Tab) semaglutide (semaglutide 2 mg/3 mL (0.25 mg or 0.5 mg dose) subcutaneous solution) Procedures Performed Cardiac catheter, Carpal tunnel release, Cataracts, Colonoscopy, Extn - Extraction of tooth, EMERALD BSO - Total abdominal hysterectomy and bilateral salpingo-oophorectomy. Discharge Vitals Temperature (Oral) 36.7 ?C Heart Rate (Peripheral) 64 Respiratory Rate 16 Blood Pressure 120/72 Height 168 cm Height 66 in Weight 74.5 kg Weight 163.9 lb BMI 26.4 What to do next Scheduled Follow-Up Appointments 2023 1:15 PM EDT With: Julee De Los Santos MD Where: [address] [address]- Monday 1:00 PM EST With: Julee De Los Santos MD Where: [address] [address]- Monday 1:00 PM EST With: Where: [address] [address]- Medications What How Much When Why Instructions Unchanged acetaminophen (Tylenol) 650 Milligram By Mouth Every 8 hours as needed for as needed for pain Unchanged atorvastatin (atorvastatin 20 mg Tab) See instructions TAKE 1 TABLET BY MOUTH DAILY Unchanged azelastine nasal (azelastine hydrochloride 137 mcg spray) 1 Sprays Nasal Inhalation 2 times a day Unchanged fluticasone nasal (fluticasone Nasal 0.05 mg/ inh [place]) 2 Sprays Nasal Inhalation Every day each nostril Unchanged folic acid 2 Milligram By Mouth [...] sugars once a day. Dx E11.8 Unchanged Misc Prescription (TENs unit) See instructions Osteopenia Please use TENs unit as per PT to help with pain. Unchanged semaglutide (semaglutide 2 mg/ 3 mL (0.25 mg or 0.5 mg dose) subcutaneous solution) 0.5 Milligram Subcutaneous Every week Allergies cefuroxime (Unknown) Problems Ongoing - Any problem that you are currently receiving treatment for. Anxiety and depression Carpal tunnel syndrome Change in voice Controlled type 2 diabetes mellitus without complication, without long-term current use of insulin Degenerative lumbar spinal stenosis Encounter for diabetic foot exam Fibromyalgia Hip pain, left Hypercholesterolemia Impingement of shoulder Loss of vision [...] for choosing us for your care. Normal [facility] Family Medicine Office/Clini c Noteon 04-18-2024 Family Medicine Office/Clinic Note Family Medicine Office/Clinic Note Chief Complaint The patient presents with severe left hip pain, impacting daily activities. HPI Staff Yamile is a 68 year old female presenting for one month follow up lt hip pain DYLAN medrol and PT Went to PT doing about the same did send records and rx to insurance to try to get her a TENS unit for home Pain characteristics: Pain location: right low back Intensity:310 Onset: ongoing Medication used: medrol dosepak and PT questions/concerns: History of Present Illness The patient is a 68-year-old female presenting with severe left hip pain. The pain is reported as originating from the backside area and has been a persistent issue affecting her quality of life. The severity of the pain is significant, described as reaching ten or eleven on a pain scale when it exacerbates. The patient notes that physical therapy has been attempted but provides minimal relief. Aggravating factors for the pain include activities such as putting on pants or bending over to pick items off the floor, forcing the patient to take precautions, like sitting down, to avoid potential falls. The pain appears to be a stretch when examined, and the patient applies pressure manually to alleviate some discomfort. The patient reports no substantial improvement from previous steroid treatment. A TENS unit has been ordered, though the patient is uncertain if it has been received yet. There is a suggestion that the pain might be linked to sacroiliac joint instability. Additionally, there is a history of bilateral vision issues; the patient is blind in the right eye and experiences complications in the left eye, currently getting injections due to recent flare-ups. This has necessitated frequent visits to a retina specialist, previously in [place] and now in [place]. The recent eye examinations revealed concerns of intraocular hemorrhage, thus requiring more frequent interventions. The patient's living environment is a source of stress, with neighborhood disturbances contributing to sleep difficulties. Family history reveals a brother undergoing treatment for cancer, adding to the patient's psychological stress. Review of Systems PHQ Score Initial Depression Screen Score: 0 SCORE Physical Exam Vitals & Measurements T: 36.7 ?C(Oral) HR: 64(Peripheral) RR: 16 BP: 120/72 SpO2: 97% HT: 66 in HT: 168 cm WT: 74.5 kg WT: 163.9 lb BMI: 26.4 General: alert, no acute distress ENMT: oral mucosa moist, Cardiovascular: regular rate and rhythm, normal peripheral perfusion Respiratory: Lungs CTA, respirations non labored Extremities: no deformity, no trauma, straight leg raise test is within normal limits bilaterally. Stretching of the piriformis bilaterally does not elicit pain outside of stretching. Pain with twisting of the lumbar region. Pain with bending. Neurological: oriented x 4, LOC appropriate for age, CN II-XII intact, motor strength equal & normal bilaterally, speech normal Abdomen: Soft, Nontender, Non-distended, + BS Assessment/Plan 1. Hip pain, left (M25.552: Pain in left hip) The proposed management includes continuation with the TENS unit for symptomatic relief, if received, and referral to an clinical operations specialist for further evaluation, potentially including imaging studies to assess the sacroiliac joint. Consideration for injection therapy in the sacroiliac region may be explored based on specialist advice. Tramadol is considered to manage pain temporarily, evaluating its effectiveness in subsequent visits. Ordered: tramadol, 50 mg = 1 tab(s), Oral, q4hr, PRN for pain, X 5 day(s), # 30 tab(s), Refills(s) 0, Pharmacy: [facility], 168, cm, 04/18/24 10:42:00 EDT, Height/Length Dosing, 74.5, kg, 04/18/24 10:42:00 EDT, Weight Dosing [facility] External Ambulatory Referral 2. Depression, unspecified (F32.A: Depression, unspecified) The patient's depression is intertwined with her current situational stress and chronic pain, potentially impacting her emotional health further. Regular mental health assessments are warranted, with a possible review of current antidepressant therapy. Ordered: tramadol, 50 mg = 1 tab(s), Oral, q4hr, PRN for pain, X 5 day(s), # 30 tab(s), Refills(s) 0, Pharmacy: [facility], 168, cm, 04/18/24 10:42:00 EDT, Height/Length Dosing, 74.5, kg, 04/18/24 10:42:00 EDT, Weight Dosing [facility] External Ambulatory Referral 3. Anxiety and depression (F41.9: Anxiety disorder, unspecified) The patient's anxiety is likely exacerbated by the stressors in her personal life, including familial illness and environmental disturbances. Continuous monitoring and possible adjustment of her anxiety management plan may be necessary, emphasizing non-pharmacologic interventions given current stressors. Ordered: tramadol, 50 mg = 1 tab(s), Oral, q4hr, PRN for pain, X 5 day(s), # 30 tab(s), Refills(s) 0, Pharmacy: [facility], 168, cm, 04/18/24 10:42:00 EDT, Height/Length Dosing, 7 (more content not included)... Normal [facility] Comment on above: Result Comment: Elec tronically Signed By: Navjot KAYE, Julee Byers\.br\Date and Time Signed: 04/18/24 11:13 EDT CBC W Auto Differential pane l (Bld)on 03-20-2024 Basophils (Bld) [#/Vol] 0.08 10*3/uL [facility] Basophils/100 WBC (Bld) 1.3 % [facility] Differential cell count method Nom (Bld) Auto [facility] Eosinophils (Bld) [#/Vol] 0.16 10*3/uL [facility] Eosinophils/100 WBC (Bld) 2.7 % [facility] Erythrocyte distribution width (RBC) [Ratio] 13.3 % 11.5 - 15.0 % [facility] Hematocrit (Bld) [Volume fraction] 46.3 % High 36.0 - 46.0 % [facility] Hemoglobin (Bld) [Mass/Vol] 15.0 g/dL 11.5 - 15.5 g/dL [facility] Immature granulocytes (Bld) [#/Vol] NINF [facility] Immature granulocytes/100 WBC (Bld) 0.2 % [facility] Interpretation and review of laboratory results Abnormal [facility] Lymphocytes (Bld) [#/Vol] 1.64 10*3/uL [facility] Lymphocytes/100 WBC (Bld) 27.5 % [facility] MCH (RBC) [Entitic mass] 30.6 pg 26.0 - 34.0 pg [facility] MCHC (RBC) [Mass/Vol] 32.4 g/dL 30.5 - 36.0 g/dL [facility] MCV (RBC) [Entitic vol] 94.5 fL 80.0 - 100.0 fL [facility] Monocytes (Bld) [#/Vol] 0.38 10*3/uL [facility] Monocytes/100 WBC (Bld) 6.4 % [facility] Neutrophils (Bld) [#/Vol] 3.69 10*3/uL [facility] Neutrophils/100 WBC (Bld) 61.9 % [facility] Nucleated RBC (Bld) [#/Vol] NINF [facility] Nucleated RBC/100 WBC (Bld) [Ratio] 0.0 % /100 WBC [facility] Platelet mean volume (Bld) [Entitic vol] 10.2 fL 9.0 - 12.7 fL [facility] Platelets (Bld) [#/Vol] 220 10*3/uL [facility] RBC (Bld) [#/Vol] 4.90 10*6/uL 3.90 - 5.2 0 m/uL [facility] WBC (Bld) [#/Vol] 5.96 10*3/uL [facility] Basophils (Bld) [#/Vol] 0.08 10*3/uL Normal <0.11 [facility] Comment on above: Order Comment: Speci men Type: BLOOD SPECIMEN Ordering Facility: [facility] Address: [address] [place] [address] Performed By: #### 5 7021-8 #### [facility] CLIA [id number] [address] [place] [address] LOW Basophils/100 WBC (Bld) 1.3 % Normal [facility] Comment on above: Order Comment: Speci men Type: BLOOD SPECIMEN Ordering Facility: [facility] Address: [address] [place] [address] Performed By: #### 5 7021-8 #### [facility] CLIA [id number] [address] [place] [address] [place] Differential cell count method Nom (Bld) Auto Normal [facility] Comment on above: Order Comment: Speci men Type: BLOOD SPECIMEN Ordering Facility: [facility] Address: [address] [place] [address] Performed By: #### 5 7021-8 #### [facility] CLIA [id number] [address] [place] [address] [place] Eosinophils (Bld) [#/Vol] 0.16 10*3/uL Normal <0.46 [facility] Comment on above: Order Comment: Speci men Type: BLOOD SPECIMEN Ordering Facility: [facility] Address: [address] [place] [address] Performed By: #### 5 7021-8 #### [facility] CLIA [id number] [address] [place] [address] [place] Eosinophils/100 WBC (Bld) 2.7 % Normal [facility] Comment on above: Order Comment: Speci men Type: BLOOD SPECIMEN Ordering Facility: [facility] Address: [address] [place] [address] Performed By: #### 5 7021-8 #### [facility] CLIA [id number] [address] [place] [address] [place] Erythrocyte distribution width (RBC) [Ratio] 13.3 % Normal 11.5-15.0 [facility] Comment on above: Order Comment: Speci men Type: BLOOD SPECIMEN Ordering Facility: [facility] Address: [address] [place] [address] Performed By: #### 5 7021-8 #### [facility] CLIA [id number] [address] [place] [address] [place] Hematocrit (Bld) [Volume fraction] 46.3 % High 36.0-46.0 [facility] Comment on above: Order Comment: Speci men Type: BLOOD SPECIMEN Ordering Facility: [facility] Address: [address] [place] [address] Performed By: #### 5 7021-8 #### [facility] CLIA [id number] [address] [place] [address] [place] Hemoglobin (Bld) [Mass/Vol] 15.0 g/dL Normal 11.5-15.5 [facility] Comment on above: Order Comment: Speci men Type: BLOOD SPECIMEN Ordering Facility: [facility] Address: [address] [place] [address] Performed By: #### 5 7021-8 #### [facility] CLIA [id number] [address] [place] [address] [place] Immature granulocytes (Bld) [#/Vol] 10*3/uL Normal <0.10 [facility] Comment on above: Order Comment: Speci men Type: BLOOD SPECIMEN Ordering Facility: [facility] Address: [address] [place] [address] Performed By: #### 5 7021-8 #### [facility] CLIA [id number] [address] [place] [address] [place] Immature granulocytes/100 WBC (Bld) 0.2 % Normal [facility] Comment on above: Order Comment: Speci men Type: BLOOD SPECIMEN Ordering Facility: [facility] Address: [address] [place] [address] Performed By: #### 5 7021-8 #### [facility] CLIA [id number] [address] [place] [address] [place] Lymphocytes (Bld) [#/Vol] 1.64 10*3/uL Normal 1.00-4.00 [facility] Comment on above: Order Comment: Speci men Type: BLOOD SPECIMEN Ordering Facility: [facility] Address: [address] [place] [address] Performed By: #### 5 7021-8 #### [facility] CLIA [id number] [address] [place] [address] [place] Lymphocytes/100 WBC (Bld) 27.5 % Normal [facility] Comment on above: Order Comment: Speci men Type: BLOOD SPECIMEN Ordering Facility: [facility] Address: [address] [place] [address] Performed By: #### 5 7021-8 #### [facility] CLIA [id number] [address] [place] [address] [place] MCH (RBC) [Entitic mass] 30.6 pg Normal 26.0-34.0 [facility] Comment on above: Order Comment: Speci men Type: BLOOD SPECIMEN Ordering Facility: [facility] Address: [address] [place] [address] Performed By: #### 5 7021-8 #### [facility] CLIA [id number] [address] [place] [address] [place] MCHC (RBC) [Mass/Vol] 32.4 g/dL Normal 30.5-36.0 [facility] Comment on above: Order Comment: Speci men Type: BLOOD SPECIMEN Ordering Facility: [facility] Address: [address] [place] [address] Performed By: #### 5 7021-8 #### [facility] CLIA [id number] [address] [place] [address] [place] MCV (RBC) [Entitic vol] 94.5 fL Normal 80.0-100.0 [facility] Comment on above: Order Comment: Speci men Type: BLOOD SPECIMEN Ordering Facility: [facility] Address: [address] [place] [address] Performed By: #### 5 7021-8 #### [facility] CLIA [id number] [address] [place] [address] [place] Monocytes (Bld) [#/Vol] 0.38 10*3/uL Normal <0.87 [facility] Comment on above: Order Comment: Speci men Type: BLOOD SPECIMEN Ordering Facility: [facility] Address: [address] [place] [address] Performed By: #### 5 7021-8 #### [facility] CLIA [id number] [address] [place] [address] [place] Monocytes/100 WBC (Bld) 6.4 % Normal [facility] Comment on above: Order Comment: Speci men Type: BLOOD SPECIMEN Ordering Facility: [facility] Address: [address] [place] [address] Performed By: #### 5 7021-8 #### [facility] CLIA [id number] [address] [place] [address] [place] Neutrophils (Bld) [#/Vol] 3.69 10*3/uL Normal 1.45-7.50 [facility] Comment on above: Order Comment: Speci men Type: BLOOD SPECIMEN Ordering Facility: [facility] Address: [address] [place] [address] Performed By: #### 5 7021-8 #### [facility] CLIA [id number] [address] [place] [address] [place] Neutrophils/100 WBC (Bld) 61.9 % Normal [facility] Comment on above: Order Comment: Speci men Type: BLOOD SPECIMEN Ordering Facility: [facility] Address: [address] [place] [address] Performed By: #### 5 7021-8 #### [facility] CLIA [id number] [address] [place] [address] [place] Nucleated RBC (Bld) [#/Vol] 10*3/uL Normal <0.01 [facility] Comment on above: Order Comment: Speci men Type: BLOOD SPECIMEN Ordering Facility: [facility] Address: [address] [place] [address] Performed By: #### 5 7021-8 #### [facility] CLIA [id number] [address] [place] [address] [place] Nucleated RBC/100 WBC (Bld) [Ratio] 0.0 /100 WBC Normal [facility] Comment on above: Order Comment: Speci men Type: BLOOD SPECIMEN Ordering Facility: [facility] Address: [address] [place] [address] Performed By: #### 5 7021-8 #### [facility] CLIA [id number] [address] [place] [address] [place] Platelet mean volume (Bld) [Entitic vol] 10.2 fL Normal 9.0-12.7 [facility] Comment on above: Order Comment: Speci men Type: BLOOD SPECIMEN Ordering Facility: [facility] Address: [address] [place] [address] Performed By: #### 5 7021-8 #### [facility] CLIA [id number] [address] [place] [address] [place] Platelets (Bld) [#/Vol] 220 10*3/uL Normal 150-400 [facility] Comment on above: Order Comment: Speci men Type: BLOOD SPECIMEN Ordering Facility: [facility] Address: [address] [place] [address] Performed By: #### 5 7021-8 #### [facility] CLIA [id number] [address] [place] [address] [place] RBC (Bld) [#/Vol] 4.90 10*6/uL Normal 3.90-5.[address] [facility] Comment on above: Order Comment: Speci men Type: BLOOD SPECIMEN Ordering Facility: [facility] Address: [address] [place] [address] Performed By: #### 5 7021-8 #### [facility] CLIA [id number] [address] [place] [address] [place] WBC (Bld) [#/Vol] 5.96 10*3/uL Normal 3.70-11.[address] [facility] Comment on above: Order Comment: Speci men Type: BLOOD SPECIMEN Ordering Facility: [facility] Address: [address] [place] [address] Performed By: #### 5 7021-8 #### [facility] CLIA [id number] [address] [place] [address] [place] CNOVon 03-20-2024 CNOV Office Visit (DIEGOULVee ) YAMILE SIDDIQUI ([id number]) 1955 F Date Time Provider Department 03/20/24 12:00 PM HARISH PAULA During your visit today, we recorded the following information about you: Pulse Blood pressure Weight 60/minute 115/73 75.8 kg Harish Paula MD 03/20/2024 12:02 PM Signed [facility] Date of Service: 03/20/2024 Patient: Yamiel Siddiqui Medical Record: [id number] Primary Care Physician: Aleksander Jimenez MD Referring Provider: SELF Last Rheumatology visit: 11/15/2023 (with Harish Paula) Chief complaint: Follow Up History of Present Illness Yamile Siddiqui is a 68 year old White female with medical history of rheumatoid arthritis, hyperlipidemia, diabetes mellitus, history of tobacco use, Histoplasmosis right eye in ( treated), 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 She is currently taking methotrexate sodium, prednisone. Yamile is both RF - 49 (11/09/2022) and CCP - 275 (11/09/2022) positive. History of rheumatoid arthritis She was being followed by local rheumatology in [place], but her daughter wanted her to get a 2nd opinion at [facility]. Seen by Dr. 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 Patient reports pain over MCPs, PIPs, wrists, [...] Continue folic acid to 2 mg daily 10/2023-no synovitis, No synovitis on exam today Continue methotrexate 20 mg weekly, folic acid to 2 mg daily 02/2024 Saw ENT 01/2020 She reports pain in her hands after activities, otherwise reports doing good with no joint swelling. Continues to have low back pain radiating to left leg. Daughter had COVID, has not made her for a while. Denies any new symptoms Previous workups 10/2022 RF 49, CCP 275 04/2018 RF [...] lower lumbar spine. Patient-Entered Data PAIN EVALUATION 03/17/2024 1813 Pain Level: 6 Description: Aching;Burning;Crampin g;Numbness Duration Units: Hours Frequency: Intermittent Intervention/Comfort measure: Relaxation PROMIS Assessments 11/09/2023 02/01/2024 03/17/2024 PROMIS Assessments Physical Health Percentile 31 10 Mental Health Percentile 26 13 Pain Score 4 3 Pain Interference Percentile 16 12 Fatigue Percentile 24 18 Physical Function Percentile 18 18 RAPID 3 [place] Activities of Daily Living 03/17/2024 6:15 PM 11/09/2023 8:49 AM 08/15/2023 8:50 AM First answer obtained - 11/08/2022 11:32 AM Dress self? With SOME difficulty With SOME difficulty With SOME difficulty With SOME difficulty Get in and out of bed? With SOME difficulty With SOME difficulty With SOME difficulty With S (more content not included)... Normal [facility] Comprehensive metabolic 2000 panelon 03-20-2024 Albumin [Mass/Vol] 4.0 g/dL 3.9 - 4.9 g/dL [facility] ALP [Catalytic activity/Vol] 71 U/L 34 - 123 U/L [facility] ALT [Catalytic activity/Vol] 13 U/L 7 - 38 U/L [facility] Anion gap [Moles/Vol] 8 mmol/L 8 - 15 mmol/L [facility] AST [Catalytic activity/Vol] 16 U/L 13 - 35 U/L [facility] Bilirubin [Mass/Vol] 0.3 mg/dL 0.2 - 1.3 mg/dL [facility] Calcium [Mass/Vol] 10.0 mg/dL 8.5 - 10. 2 mg/dL [facility] Chloride [Moles/Vol] 103 mmol/L 98 - 107 mmol/L [facility] CO2 [Moles/Vol] 30 mmol/L 22 - 30 mmol/L [facility] Creatinine [Mass/Vol] 0.82 mg/dL 0.58 - 0.96 mg/dL [facility] GFR/1.73 sq M.predicted among non-blacks MDRD (S/P/Bld) [Vol rate/Area] 79 mL/min/{1.73_m2} - PINF [facility] Comment on above: Estimated Glomerular Filtration Rate (eGFR) is calculated using the 2020 CKD-EPI creatinine equation. This equation utilizes serum creatinine, sex, and age as parameters. The creatinine assay has traceable calibration to isotope dilution-mass spectrometry. Refer to KDIGO guidelines for clinical interpretation. In patients with unstable renal function, e.g. those with acute kidney injury, the eGFR may not accurately reflect actual GFR. Glucose [Mass/Vol] 88 mg/dL 74 - 99 mg/dL [facility] Comment on above: The [place] Diabete s Association (ADA) provides guidance for cutoff values [...] Standards of Medical Care in Diabetes 2016, [place] Diabetes Association. Diabetes Care. 2016.39(Suppl 1). Interpretation and review of laboratory results Abnormal [facility] Potassium [Moles/Vol] 5.2 mmol/L High 3.7 - 5.1 mmol/L [facility] Protein [Mass/Vol] 6.5 g/dL 6.3 - 8.0 g/dL Cl [facility] Sodium [Moles/Vol] 141 mmol/L 136 - 144 mmol/L [facility] Urea nitrogen [Mass/Vol] 11 mg/dL 7 - 21 mg/dL [facility] Albumin [Mass/Vol] 4.0 g/dL Normal 3.9-4.9 [facility] Comment on above: Order Comment: Speci men Type: BLOOD SPECIMENOrdering Facility: [facility] Address: [address] [place] [address] Performed By: #### 2 4323-8 ####[facility] [id number] [place] [address] [place] ALP [Catalytic activity/Vol] 71 U/L Normal 34-123 [facility] Comment on above: Order Comment: Speci men Type: BLOOD SPECIMENOrdering Facility: [facility] Address: [address] [place] [address] Performed By: #### 2 4323-8 ####[facility] [id number] [place] [address] [place] ALT [Catalytic activity/Vol] 13 U/L Normal 7-38 [facility] Comment on above: Order Comment: Speci men Type: BLOOD SPECIMENOrdering Facility: [facility] Address: [address] [place] [address] Performed By: #### 2 4323-8 ####[facility] [id number] [place] [address] [place] Anion gap [Moles/Vol] 8 mmol/L Normal 8-15 [facility] Comment on above: Order Comment: Speci men Type: BLOOD SPECIMENOrdering Facility: [facility] Address: [address] [place] [address] Performed By: #### 2 4323-8 ####[facility] [id number] [place] [address] [place] AST [Catalytic activity/Vol] 16 U/L Normal 13-35 [facility] Comment on above: Order Comment: Speci men Type: BLOOD SPECIMENOrdering Facility: [facility] Address: [address] [place] [id number] Performed By: #### 2 4323-8 ####[facility] [id number] [place] [address] [place] Bilirubin [Mass/Vol] 0.3 mg/dL Normal 0.2-1.3 [facility] Comment on above: Order Comment: Speci men Type: BLOOD SPECIMENOrdering Facility: [facility] Address: [address] [place] [address] Performed By: #### 2 4323-8 ####[facility] [id number] [place] [address] [place] Calcium [Mass/Vol] 10.0 mg/dL Normal 8.5-10.2 [facility] Comment on above: Order Comment: Speci men Type: BLOOD SPECIMENOrdering Facility: [facility] Address: [address] [place] [address] Performed By: #### 2 4323-8 ####[facility] [id number] [place] [address] [place] Chloride [Moles/Vol] 103 mmol/L Normal 98-107 [facility] Comment on above: Order Comment: Speci men Type: BLOOD SPECIMENOrdering Facility: [facility] Address: [address] [place] [address] Performed By: #### 2 4323-8 ####[facility] [id number] [place] [address] [place] CO2 [Moles/Vol] 30 mmol/L Normal 22-30 [facility] Comment on above: Order Comment: Speci men Type: BLOOD SPECIMENOrdering Facility: [facility] Address: [address] [place], [place] [address] Performed By: #### 2 4323-8 ####[facility]IA [id number] [address] STATES OF [facility] Creatinine [Mass/Vol] 0.82 mg/dL Normal 0.58-0.96 [facility] Comment on above: Order Comment: Mona gutierrez Type: BLOOD SPECIMENOrdering Facility: [facility] Address: [address] [place] [address] Performed By: #### 2 4323-8 ####[facility]IA [id number] [address] Creatinine and Glomerular filtration rate.predicted panel (S/P/Bld) 79 mL/min/1.73m??? Normal >=60 [facility] Comment on above: Order Comment: Mona gutierrez Type: BLOOD SPECIMENOrdering Facility: [facility] Address: [address] [place] [address] Result Comment: Rimma mated Glomerular Filtration Rate [...] actual GFR. Performed By: #### 2 4323-8 ####[facility]CLIA [id number] [place] [address] [place] Glucose [Mass/Vol] 88 mg/dL Normal 74-99 [facility] Comment on above: Order Comment: Mona gutierrez Type: BLOOD SPECIMENOrdering Facility: [facility] Address: [address] [place] [address] Result Comment: The [place] Diabetes Association (ADA) provides guidance for cutoff [...] Standards of Medical Care in Diabetes 2016, [place] Diabetes Association. Diabetes Care. 2016.39(Suppl 1). Performed By: #### 2 4323-8 ####[facility]IA [id number] [place] [address] [place] Potassium [Moles/Vol] 5.2 mmol/L High 3.7-5.1 [facility] Comment on above: Order Comment: Speci men Type: BLOOD SPECIMENOrdering Facility: [facility] Address: [address] [place] [address] Performed By: #### 2 432-8 ####[facility]IA [id number] [place] [address] [place] Protein [Mass/Vol] 6.5 g/dL Normal 6.3-8.0 [facility] Comment on above: Order Comment: Speci men Type: BLOOD SPECIMENOrdering Facility: [facility] Address: [address] [id number] Performed By: #### 2 432-8 ####[facility]IA [id number] [place] [address] [place] Sodium [Moles/Vol] 141 mmol/L Normal 136-144 [facility] Comment on above: Order Comment: Speci men Type: BLOOD SPECIMENOrdering Facility: [facility] Address: [address] [place] [address] Performed By: #### 2 4323-8 ####[facility] LABCLIA [id number] [place] [id number] [place] Urea nitrogen [Mass/Vol] 11 mg/dL Normal 7-21 [facility] Comment on above: Order Comment: Speci men Type: BLOOD SPECIMENOrdering Facility: [facility] Address: [address] [place] [address] Performed By: #### 2 4323-8 ####[facility] LABCLIA [id number] [facility] [id number] [id number] [place] Urinalysis complete panel (U )on 03-20-2024 Bacteria LM.HPF (Urine sed) [#/Area] Negative Negative /HPF [facility] Bilirubin Ql (U) Negative Negative [facility] Clarity (Unsp spec) Clear Clear [facility] Color (U) Yellow Yellow [facility] Epithelial cells LM.HPF (Urine sed) [#/Area] None Seen /HPF [facility] Glucose Test strip (U) [Mass/Vol] Negative Negative [facility] Hemoglobin Ql (U) Negative Negative [facility] Hyaline casts (Urine sed) [#/Area] 0 /[LPF] 0 /LPF [facility] Ketones Ql (U) Negative Negative [facility] Leukocyte esterase Test strip Ql (U) Negative Negative [facility] Nitrite Ql (U) Negative Negative [facility] pH (U) 7.0 [pH] NINF - 8.5 [facility] Protein (U) [Mass/Vol] Negative Negative [facility] RBC LM.HPF (Urine sed) [#/Area] 0-2 /HPF 0-2 /HPF [facility] Specific gravity (U) [Rel density] 1.018 1.005 - 1.030 [facility] Urobilinogen Ql (U) 0.2 EU/dL 0.2-1.0 EU/dL [facility] WBC LM.HPF (Urine sed) [#/Area] 0-5 /HPF 0-5 /HPF [facility] This test was developed and its performance characteristics determined by [facility]'s Eric Yamila [facility] ([facility]). It has not been cleared or approved by the FDA. -[facility] is regulated under CLIA as qualified to perform high-complexity testing. This test is used for clinical purposes. It should not be regarded as investigational or for research. [facility] Bacteria LM.HPF (Urine sed) [#/Area] Negative Normal Negative [facility] Comment on above: Order Comment: Speci men Type: URINE SPECIMENOrdering Facility: [facility] Address: [address] [place] [address] [place] [id number] Performed By: #### 2 4356-8 ####[facility]IA [id number] [place] [address] [place] Bilirubin Ql (U) Negative Normal Negative [facility] Comment on above: Order Comment: Speci men Type: URINE SPECIMENOrdering Facility: [facility] Address: [address] [place] [address] Performed By: #### 2 4356-8 ####[facility]CLIA [id number] [place] [address] [place] Clarity (Unsp spec) Clear Normal Clear [facility] Comment on above: Order Comment: Speci men Type: URINE SPECIMENOrdering Facility: [facility] Address: [address] [place] [address] Performed By: #### 2 4356-8 ####[facility]IA [id number] [address] [place] [facility] Color (U) Yellow Normal Yellow [facility] Comment on above: Order Comment: Speci men Type: URINE SPECIMENOrdering Facility: [facility] Address: [address] [place] [address] Performed By: #### 2 4356-8 ####[facility]CLIA [id number] [place] [address] [place] Epithelial cells LM.HPF (Urine sed) [#/Area] None Seen Normal [facility] Comment on above: Order Comment: Speci men Type: URINE SPECIMENOrdering Facility: [facility] Address: [address] [place], [place] [address] Performed By: #### 2 4356-8 ####[facility]IA [id number] [place] [address] [place] Glucose Test strip (U) [Mass/Vol] Negative Normal Negative [facility] Comment on above: Order Comment: Speci men Type: URINE SPECIMENOrdering Facility: [facility] Address: [address] [place] [address] Performed By: #### 2 4356-8 ####[facility] LABCLIA [id number] [place] [address] [place] Hemoglobin Ql (U) Negative Normal Negative [facility] Comment on above: Order Comment: Speci men Type: URINE SPECIMENOrdering Facility: [facility] Address: [address] [place] [address] Performed By: #### 2 4356-8 ####[facility]CLIA [id number] [place] [address] [place] Hyaline casts (Urine sed) [#/Area] 0 /[LPF] Normal 0 /LPF [facility] Comment on above: Order Comment: Speci men Type: URINE SPECIMENOrdering Facility: [facility] Address: [address] [place] [address] Performed By: #### 2 4356-8 ####[facility] LABCLIA [id number] [place] [address] [place] Ketones Ql (U) Negative Normal Negative [facility] Comment on above: Order Comment: Speci men Type: URINE SPECIMENOrdering Facility: [facility] Address: [address] [place] [address] Performed By: #### 2 4356-8 ####[facility] LABCLIA [id number] [place] [address] [place] Leukocyte esterase Test strip Ql (U) Negative Normal Negative [facility] Comment on above: Order Comment: Speci men Type: URINE SPECIMENOrdering Facility: [facility] Address: [address] [place] [address] Performed By: #### 2 4356-8 ####[facility] LABCLIA [id number] [place] [address] [place] Nitrite Ql (U) Negative Normal Negative [facility] Comment on above: Order Comment: Speci men Type: URINE SPECIMENOrdering Facility: [facility] Address: [address] [place] [address] Performed By: #### 2 4356-8 ####[facility] LABCLIA [id number] [place] [address] [place] pH (U) 7.0 [pH] Normal <8.5 [facility] Comment on above: Order Comment: Speci men Type: URINE SPECIMENOrdering Facility: [facility] Address: [address] [place] [address] Performed By: #### 2 4356-8 ####[facility] LABIA [id number] [place] [address] [place] Protein (U) [Mass/Vol] Negative Normal Negative [facility] Comment on above: Order Comment: Speci men Type: URINE SPECIMENOrdering Facility: [facility] Address: [address] [place] [address] Performed By: #### 2 4356-8 ####[facility] LABIA [id number] [place] [address] [place] RBC LM.HPF (Urine sed) [#/Area] 0-2 /HPF Normal 0-2 /HPF [facility] Comment on above: Order Comment: Speci men Type: URINE SPECIMENOrdering Facility: [facility] Address: [address] [place] [address] Performed By: #### 2 4356-8 ####[facility] LABCLIA [id number] [place] [address] [place] Specific gravity (U) [Rel density] 1.018 Normal 1.005-1.030 [facility] Comment on above: Order Comment: Speci men Type: URINE SPECIMENOrdering Facility: [facility] Address: [address] [place] [address] Performed By: #### 2 4356-8 ####[facility] LABCLIA [id number] [place] [address] [place] Urobilinogen Ql (U) 0.2 EU/dL Normal 0.2-1.0 EU/dL [facility] Comment on above: Order Comment: Speci men Type: URINE SPECIMENOrdering Facility: [facility] Address: [address] [place] [address] Performed By: #### 2 4356-8 ####[facility] LABCLIA [id number] [place] [address] [place] WBC LM.HPF (Urine sed) [#/Area] 0-5 /HPF Normal 0-5 /HPF [facility] Comment on above: Order Comment: Speci men Type: URINE SPECIMENOrdering Facility: [facility] Address: [address] [place] [address] Performed By: #### 2 4356-8 ####[facility] LABCLIA [id number] [place] [address] [place] Family Medicine Office/Clini c Noteon 03-18-2024 Family Medicine Office/Clinic Note Family Medicine Office/Clinic Note HPI Staff Yamile is a 68 year old female presenting for PT order for sciatica, she's never actually been diagnosed with sciatica it's what she thinks it is. Would like her PT at [facility] pt said Dr was to order, not done and there's no documentation about her having sciatica and needing PT, needed OV to document and get insurance approval History of Present Illness - See staff HPI. Review of Systems PHQ Score Initial Depression Screen Score: 0 SCORE Physical Exam Vitals & Measurements T: 37.0 ?C(Temporal Artery) HR: 72(Peripheral) RR: 16 BP: 120/74 SpO2: 96% HT: 66 in HT: 168 cm WT: 73.8 kg WT: 162.36 lb BMI: 26.15 General: alert, no acute distress ENMT: oral mucosa moist, Cardiovascular: normal peripheral perfusion Respiratory: respirations non labored Extremities: no deformity, no trauma straight leg raise test is negative. Patient is tender to palpation over the sacrum and the iliac come together. Piriformis stretching does not elicit the pain. Neurological: oriented x 4, LOC appropriate for age, CN II-XII intact, motor strength equal & normal bilaterally, speech normal Abdomen: Soft, Nontender, Non-distended, + BS Assessment/Plan 1. Hip pain, left (M25.552: Pain in left hip) - Possible sacroillitis vs lumbar strain. - Medrol and PT. - Follow up in 4 weeks. 2. BMI 26.0-26.9,adult (Z68.26: Body mass index [BMI] 26.0-26.9, adult) - BMI education added Ordered: Body Mass Index (BMI) documented 3008F Current tobacco non-user 1036F Depression Screening Negative 3352F Influenza immunization administered or previously received 4274F Most recent diastolic blood pressure <80 mm Hg 3078F Patient screen for fall risk: no falls in last year or 1 fall with no injury in last year 1101F Systolic BP <130 mm Hg (Most Recent) 3074F 3. Over weight (E66.3: Overweight) - Diet and exercise advised Ordered: Body Mass Index (BMI) documented 3008F Current tobacco non-user 1036F Depression Screening Negative 3352F Influenza immunization administered or previously received 4274F Most recent diastolic blood pressure <80 mm Hg 3078F Patient screen for fall risk: no falls in last year or 1 fall with no injury in last year 1101F Systolic BP <130 mm Hg (Most Recent) 3074F 4. Former smoker (Z87.891: Personal history of nicotine dependence) - Please continue to not smoke. Ordered: Body Mass Index (BMI) documented 3008F Current tobacco non-user 1036F Depression Screening Negative 3352F Influenza immunization administered or previously received 4274F Most recent diastolic blood pressure <80 mm Hg 3078F Patient screen for fall risk: no falls in last year or 1 fall with no injury in last year 1101F Systolic BP <130 mm Hg (Most Recent) 3074F Orders: methylPREDNISolone, = 1 packet(s), Oral, As Directed, as directed on package labeling, X 6 day(s), # 21 tab(s), Refills(s) 0, Pharmacy: [facility], 168, cm, 03/18/24 12:50:00 EDT, Height/Length Dosing, 73.8, kg, 03/18/24 12:50:00 EDT, Weight Dosing Follow-up No qualifying data available Problem List/Past Medical History Ongoing Anxiety and depression Carpal tunnel syndrome Change in voice Controlled type 2 diabetes mellitus without complication, without long-term current use of insulin Degenerative lumbar spinal stenosis Encounter for diabetic foot exam Fibromyalgia Hip pain, left Hypercholesterolemia Impingement of shoulder Loss of vision [...] mcg/inh inhalation aerosol, 2 puff(s), Inhalation, q6hr atorvastatin 20 mg Tab, See Instructions, 1 refills azelastine hydrochloride 137 mcg spray, 1 spray(s), Nasal, BID fluticasone Nasal 0.05 mg/inh [place], 2 spray(s), Nasal, Daily folic acid, 2 mg, Oral, Daily Handicap placard, See Instructions Medrol 4 mg Tab, 1 packet(s), Oral, As Directed metformin 850 mg Tab, See Instructions, 1 refills methotrexate 2.5 mg Tab, 20 mg= 8 tab(s), Oral, q7day Misc DME Prescription, See Instructions Penlac Nail Lacquer 8% topical solution, 1 aleah, Topical, Daily semaglutide 2 mg/3 mL (0.25 mg or 0.5 mg dose) subcutaneous solution, 0.5 mg, SubCutaneous, qWeek, 6 refills Tylenol, 650 mg, Oral, q8hr, PRN Allergies cefuroxime (Unknown) Social History Alcohol Household alcohol concerns: No., 09/15/2023 Tobacco Former smoker, quit more than 30 days ago Tobacco Use:. Never Smokeless (more content not included)... Normal [facility] Comment on above: Result Comment: Elec tronically Signed By: Navjot KAYE, Julee Morgan.br\Date and Time Signed: 03/18/24 13:15 EDT Ambulatory Visit Summaryon 0 02-20-2024 Ambulatory Visit Summary Ambulatory Visit Summary YAMILE SIDDIQUI :1955 Visit Date:02/20/2024 Ambulatory Visit Instructions Your Diagnosis Controlled type 2 diabetes mellitus without complication, without long-term current use of insulin Anxiety and depression Nasal congestion Sinusitis Hypercholesterolemia BMI 26.0-26.9,adult Over weight Former smoker Depression, unspecified Your Care Team Attending Physician - Julee De Los Santos MD Primary Care Physician - Julee De Los Santos MD This Is Your Medications List Misc Prescription (Misc DME Prescription) atorvastatin (atorvastatin 20 mg Tab) metformin (metformin 850 mg Tab) semaglutide (semaglutide 2 mg/3 mL (0.25 mg or 0.5 mg dose) subcutaneous solution) Contact prescribing physician if questions or concerns Misc Prescription (Handicap placard) acetaminophen (Tylenol) albuterol (Albuterol (Eqv-ProAir HFA) 90 mcg/inh inhalation aerosol) azelastine nasal (azelastine hydrochloride 137 mcg spray) ciclopirox topical ([place] Nail Lacquer 8% topical solution) fluticasone nasal (fluticasone Nasal 0.05 mg/inh [place]) folic acid methotrexate (methotrexate 2.5 mg Tab) predniSONE Procedures Performed Cardiac catheter, Carpal tunnel release, Cataracts, Colonoscopy, Extn - Extraction of tooth, EMERALD BSO - Total abdominal hysterectomy and bilateral salpingo-oophorectomy. Discharge Vitals Temperature (Oral) 36.7 ?C Heart Rate (Peripheral) 88 Respiratory Rate 18 Blood Pressure 124/72 Height 168 cm Height 66 in Weight 75.4 kg Weight 165.88 lb BMI 26.71 What to do next Scheduled Follow-Up Appointments Monday 2:00 PM EDT With: Julee De Los Santos MD Where: [address] [address]- Monday 1:00 PM EST With: Where: [address] [address]- Medications What How Much When Why Instructions Changed semaglutide (semaglutide 2 mg/ 3 mL (0.25 mg or 0.5 mg dose) subcutaneous solution) 0.5 Milligram Subcutaneous Every week Pickup at [facility] Unchanged atorvastatin (atorvastatin 20 mg Tab) See instructions TAKE 1 TABLET BY MOUTH DAILY Pickup at [facility] Unchanged metformin (metformin 850 mg Tab) See instructions TAKE 1 TABLET BY MOUTH TWICE DAILY Pickup at [facility] Unchanged Misc Prescription (Misc DME Prescription) See instructions Disp one Glucometer, #100 test strips and #100 lancets to test blood sugars once a day. Dx E11.8 Pickup at [facility] Unchanged acetaminophen (Tylenol) 650 Milligram By Mouth Every 8 hours as needed for as needed for pain Contact prescribing physician if questions or concerns Unchanged albuterol (Albuterol (Eqv-ProAir HFA) 90 mcg/ inh inhalation aerosol) 2 Puffs Inhalation Every 6 hours BMI 26.0-26.9,adult Over weight Nonsmoker Contact prescribing physician if questions or concerns Unchanged azelastine nasal (azelastine hydrochloride 137 mcg spray) 1 Sprays Nasal Inhalation 2 times a day Contact prescribing physician if questions or concerns Unchanged ciclopirox topical (Pen[place] Nail Lacquer 8% topical solution) 1 Application Topical Every day Contact prescribing physician if questions or concerns Unchanged fluticasone nasal (fluticasone Nasal 0.05 mg/ inh [place]) 2 Sprays Nasal Inhalation Every day each nostril Contact prescribing physician if questions or concerns Unchanged folic acid 2 Milligram By Mouth Every day Contact prescribing physician if questions or concerns Unchanged methotrexate (methotrexate 2.5 mg Tab) 8 Tablets By Mouth Every 7 days Contact prescribing physician if questions or concerns Unchanged Misc Prescription (Handicap placard) See instructions Duration 5 years Contact prescribing physician if questions or concerns Unchanged predniSONE 5 Milligram By Mouth Every day as needed for Breakthrough Pain Contact prescribing physician if questions or concerns Pharmacy Information [facility]: [address] [place] [id number] [phone] Allergies cefuroxime (Unknown) Problems Ongoing - Any problem that you are currently receiving treatment for. Anxiety and depression Carpal tunnel syndrome Change in voice Controlled type 2 diabetes mellitus without complication, without long-term current use of insulin Degenerative lumbar spinal stenosis Encounter for diabetic foot exam Fibromyalgia Hypercholesterolemia Impingement of shoulder Loss of vision Macular degeneration of right eye Migraines Nasal congestion Onychomycosis Osteopenia Polyp of colon Rheumatoid arthritis involving multiple sites with positive rheumatoid factor S/P tooth extraction Sinusitis Stye Type 2 diabetes mellitus Vitamin D deficiency Wheezing Patient Survey You may receive a survey (more content not included)... Normal [facility] CBC w/ Auto Diffon 4 Basophils/100 WBC (Bld) 0.9 % Normal 0.0-2.0 [facility] Comment on above: Performed By: #### 2 [id number] #### [facility] [address] [place] [address] Basophils/Leukocytes Auto (Bld) [Pure # fraction] 0.1 E9/L Normal 0.0-0.2 [facility] Comment on above: Performed By: #### 2 [id number] #### [facility] [address] [place] [address] Eosinophils (Bld) [#/Vol] 0.1 E9/L Normal 0.0-0.5 [facility] Comment on above: Performed By: #### 2 [id number] #### [facility] [address] [place] [address] Eosinophils/100 WBC (Bld) 1.3 % Normal 0.0-8.0 [facility] Comment on above: Performed By: #### 2 084908 #### [facility] [address] [place] [address] Erythrocyte distribution width (RBC) [Ratio] 14.9 % High 10.9-14.2 [facility] Comment on above: Performed By: #### 2 438232 #### [facility] [address] [place] [address] Hematocrit (Bld) [Volume fraction] 44.2 % Normal 34.0-46.0 [facility] Comment on above: Performed By: #### 2 468720 #### [facility] [address] [place] [address] Hemoglobin (Bld) [Mass/Vol] 15.0 g/dL Normal 12.0-16.0 [facility] Comment on above: Performed By: #### 2 107095 #### [facility] [address] [place] [address] Lymphocytes (Bld) [#/Vol] 1.4 E9/L Normal 1.0-4.0 [facility] Comment on above: Performed By: #### 2 220903 #### [facility] [address] [place] [address] Lymphocytes/100 WBC (Bld) 22.2 % Normal 14.0-50.0 [facility] Comment on above: Performed By: #### 2 134299 #### [facility] [address] [place] [address] MCH (RBC) [Entitic mass] 31.7 pg Normal 27.0-34.0 [facility] Comment on above: Performed By: #### 2 760825 #### [facility] [address] [place] [address] MCHC (RBC) [Mass/Vol] 33.9 g/dL Normal 31.4-36.0 [facility] Comment on above: Performed By: #### 2 356297 #### [facility] [address] [place] [address] MCV (RBC) [Entitic vol] 93.5 fL Normal 80.0-100.0 [facility] Comment on above: Performed By: #### 2 195341 #### [facility] [address] [place] [address] Monocytes (Bld) [#/Vol] 0.3 E9/L Normal 0.2-1.0 [facility] Comment on above: Performed By: #### 2 487664 #### [facility] [address] [place] [address] Neutrophils (Bld) [#/Vol] 4.5 E9/L Normal 2.0-7.5 [facility] Comment on above: Performed By: #### 2 194905 #### [facility] [address] [place] [address] Neutrophils/100 WBC (Bld) 70.2 % Normal 36.0-75.0 [facility] Comment on above: Performed By: #### 2 663332 #### [facility] [address] [place] [address] Platelet 215.0 E9/L Normal 150.0-500.0 [facility] Comment on above: Performed By: #### 2 393380 #### [facility] [address] [place] [address] Platelet mean volume (Bld) [Entitic vol] 8.7 fL Normal 6.4-10.8 [facility] Comment on above: Performed By: #### 2 955477 #### [facility] [address] [place] [address] RBC (Bld) [#/Vol] 4.7 E12/L Normal 4.3-5.9 [facility] Comment on above: Performed By: #### 2 924324 #### [facility] [address] [place] [address] WBC corrected for nucl RBC Auto (Bld) [#/Vol] 6.4 E9/L Normal 4.0-11.0 [facility] Comment on above: Performed By: #### 2 498018 #### [facility] [address] [place] [address] CHEMISTRYOrdered By: SYSTEM SYSTEM on 02-20-2024 Albumin [Mass/Vol] 3.9 g/dL Normal 3.3 - 5.0 gm/dL R emisol Chem Albumin DL <= 20 mg/L (U) [Mass/Vol] mg/dL Normal 0.0 - 1.9 mg/dL [facility] Albumin/Globulin [Mass ratio] 1.8 {ratio} Normal 1.1 - 2.2 [facility] ALP [Catalytic activity/Vol] 61 [iU]/d Normal 21 - 98 Int._Unit/L [facility] ALT No additional P-5'-P [Catalytic activity/Vol] 14 [iU]/d Normal 6 - 46 Int._Unit/L [facility] Anion gap [Moles/Vol] 12 mmol/L Normal 6 - 16 mEq/L [facility] AST [Catalytic activity/Vol] 16 [iU]/d Normal 5 - 43 Int._Unit/L [facility] Bilirubin [Mass/Vol] 0.6 mg/dL Normal 0.0 - 1.1 mg/dL [facility] Calcium [Mass/Vol] 9.3 mg/dL Normal 8.9 - 11. 1 mg/dL [facility] Chloride [Moles/Vol] 104 mmol/L Normal 101 - 1 11 mmol/L [facility] Cholesterol [Mass/Vol] 202 mg/dL High 120 - 200 mg/dL [facility] Cholesterol in HDL [Mass/Vol] 65 mg/dL Invalid Interpretation Code [facility] Comment on above: Result Comment: '>= 60 LOW RISK' '<= 40 HIGH RISK' Cholesterol in LDL [Mass/Vol] 123 mg/dL Normal <=129mg/dL [facility] Cholesterol in VLDL [Mass/Vol] 23 mg/dL Normal 7 - 40 mg/dL [facility] CO2 [Moles/Vol] 28 mmol/L Normal 21 - 31 mmol/L Remis [facility] Creatinine [Mass/Vol] 0.8 mg/dL Normal 0.5 - 1.3 mg/dL [facility] eGFR 81 mL/min/1.73 m2 Normal >=59mL/min /1.73 m2 [facility] Globulin (S) [Mass/Vol] 2.2 g/dL Normal 1.4 - 4.0 gm/dL [facility] Glucose [Mass/Vol] 155 mg/dL Normal 55 - 199 mg/dL Re misol Chem Potassium [Moles/Vol] 3.7 mmol/L Normal 3.5 - 5.3 mmol/L [facility] Protein [Mass/Vol] 6.1 g/dL Normal 6.0 - 7.8 gm/dL R emisol Chem Protein/Creatinine (U) [Ratio] 6.60 mg/gm Cr Normal 0.00 - 200.00 mg/gm Cr [facility] Sodium [Moles/Vol] 140 mmol/L Normal 135 - 145 mmol/L [facility] Triglyceride [Mass/Vol] 114 mg/dL Normal <=149mg/dL [facility] U Creatinine 72.5 mg/dL Invalid Interpretation Code [facility] Ur Total Protein 4.8 mg/dL Invalid Interpretation Code [facility] Urea nitrogen [Mass/Vol] 12 mg/dL Normal 5 - 21 mg/dL [facility] Urea nitrogen/Creatinine [Mass ratio] 15 mg/mg Normal 10 - 20 [facility] CHEMISTRYOrdered By: Clifton Mcmahon on 02-20-2024 HbA1c (Bld) [Mass fraction] 5.9 % Normal <=5.9% [facility] ChemAutoSS CMPon 02-20-2024 Albumin [Mass/Vol] 3.9 g/dL Normal 3.3-5.0 [facility] Comment on above: Performed By: #### 2 [id number] #### [facility] [address] [place] [address] Albumin/Globulin (S) [Mass conc ratio] 1.8 Normal 1.1-2.2 [facility] Comment on above: Performed By: #### 2 774675 #### [facility] [address] [place] [address] ALP [Catalytic activity/Vol] 61 Int._Unit/L Normal 21-98 [facility] Comment on above: Performed By: #### 2 462972 #### [facility] [address] [place] [address] ALT No additional P-5'-P [Catalytic activity/Vol] 14 Int._Unit/L Normal 6-46 [facility] Comment on above: Performed By: #### 2 981347 #### [facility] [address] [place] [address] Anion gap [Moles/Vol] 12 mmol/L Normal 6-16 [facility] Comment on above: Performed By: #### 2 929284 #### [facility] [address] [place] [address] AST [Catalytic activity/Vol] 16 Int._Unit/L Normal 5-43 [facility] Comment on above: Performed By: #### 2 099777 #### [facility] [address] [place] [address] Bilirubin [Mass/Vol] 0.6 mg/dL Normal 0.0-1.1 [facility] Comment on above: Performed By: #### 2 810592 #### [facility] [address] [place] [address] Calcium [Mass/Vol] 9.3 mg/dL Normal 8.9-11.1 [facility] Comment on above: Performed By: #### 2 093030 #### [facility] [address] [place] [address] Chloride [Moles/Vol] 104 mmol/L Normal 101-111 [facility] Comment on above: Performed By: #### 2 047707 #### [facility] [address] [place] [address] CO2 [Moles/Vol] 28 mmol/L Normal 21-31 [facility] Comment on above: Performed By: #### 2 385222 #### [facility] [address] [place] [address] Creatinine [Mass/Vol] 0.8 mg/dL Normal 0.5-1.3 [facility] Comment on above: Performed By: #### 2 484973 #### [facility] [address] [place] [address] Globulin (S) [Mass/Vol] 2.2 g/dL Normal 1.4-4.0 [facility] Comment on above: Performed By: #### 2 387250 #### [facility] [address] [place] [address] Glucose [Mass/Vol] 155 mg/dL Normal 55-199 [facility] Comment on above: Performed By: #### 2 706602 #### [facility] [address] [place] [address] Potassium [Moles/Vol] 3.7 mmol/L Normal 3.5-5.3 [facility] Comment on above: Performed By: #### 2 588119 #### [facility] [address] [place] [address] Protein [Mass/Vol] 6.1 g/dL Normal 6.0-7.8 [facility] Comment on above: Performed By: #### 2 869095 #### [facility] [address] [place] [address] Sodium [Moles/Vol] 140 mmol/L Normal 135-145 [facility] Comment on above: Performed By: #### 2 947084 #### [facility] [address] [place] [address] Urea nitrogen [Mass/Vol] 12 mg/dL Normal 5-21 [facility] Comment on above: Performed By: #### 2 620099 #### [facility] [address] [place] [address] Urea nitrogen/Creatinine [Mass ratio] 15 No Units Normal 10-20 [facility] Comment on above: Performed By: #### 2 177867 #### [facility] [address] [place] [address] Family Medicine Office/Clini c Noteon 02-20-2024 Family Medicine Office/Clinic Note Family Medicine Office/Clinic Note HPI Staff Yamile is a 68 year old female presenting for 2 month follow up DM Do you have any of the following symptoms? Foot Exam: UTD, has shoes ordered also Eye Exam: ANURADHA gets a shot in her left eye every month since Jun. Last A1C: Hgb A1C %: 6.1 % High (07/10/23 13:17:00) Statin: atorvastatin 20mg questions/concerns: just picked up metformin and atorvastatin each 90 days but there aren't any refills, can you send in refills now for her. Also can she get a rx for a new glucometer with strips her machine is old and not working Did see ENT for her throat/sinus History of Present Illness Patient is here for follow-up. Patient states blood sugars are doing well. No concerns. Weight has been stable. Patient needs a new glucometer. Please see staff HPI. Review of Systems PHQ Score Initial Depression Screen Score: 0 SCORE Physical Exam Vitals & Measurements T: 36.7 ?C(Oral) HR: 88(Peripheral) RR: 18 BP: 124/72 SpO2: 96% HT: 66 in HT: 168 cm WT: 75.4 kg WT: 165.88 lb BMI: 26.71 General: alert, no acute distress ENMT: oral mucosa moist, Cardiovascular: regular rate and rhythm, normal peripheral perfusion Respiratory: Lungs CTA, respirations non labored Extremities: no deformity, no trauma Neurological: oriented x 4, LOC appropriate for age, CN II-XII intact, motor strength equal & normal bilaterally, speech normal Abdomen: Soft, Nontender, Non-distended, + BS Assessment/Plan 1. Controlled type 2 diabetes mellitus without complication, without long-term current use of insulin (E11.9: Type 2 diabetes mellitus without complications) Will check labs today. Refilled medications. If patient is having changes in the blood sugar we will adjust medications. Ordered: Body Mass Index (BMI) documented 3008F CBC w/ Auto Diff Comprehensive Metabolic Panel Current tobacco non-user 1036F Depression Screening Negative 3352F HgbA1c Influenza immunization administered or previously received 4274F Lipid Panel Microalbumin Level Urine Most recent diastolic blood pressure <80 mm Hg 3078F Patient screen for fall risk: no falls in last year or 1 fall with no injury in last year 1101F Systolic BP <130 mm Hg (Most Recent) 3074F U Protein/Creat Ratio 2. Anxiety and depression (F41.9: Anxiety disorder, unspecified) No issues today. Continue on medication as before. Ordered: Body Mass Index (BMI) documented 3008F CBC w/ Auto Diff Comprehensive Metabolic Panel Current tobacco non-user 1036F Depression Screening Negative 3352F HgbA1c Influenza immunization administered or previously received 4274F Lipid Panel Microalbumin Level Urine Most recent diastolic blood pressure <80 mm Hg 3078F Patient screen for fall risk: no falls in last year or 1 fall with no injury in last year 1101F Systolic BP <130 mm Hg (Most Recent) 3074F U Protein/Creat Ratio 3. Nasal congestion (R09.81: Nasal congestion) Continue seeing ENT. Patient is using nasal sprays without using the Magaly pot. Recommended using a Magaly pot first and then using the nasal sprays. Discussed in detail with the patient. Ordered: Body Mass Index (BMI) documented 3008F CBC w/ Auto Diff Comprehensive Metabolic Panel Current tobacco non-user 1036F Depression Screening Negative 3352F HgbA1c Influenza immunization administered or previously received 4274F Lipid Panel Microalbumin Level Urine Most recent diastolic blood pressure <80 mm Hg 3078F Patient screen for fall risk: no falls in last year or 1 fall with no injury in last year 1101F Systolic BP <130 mm Hg (Most Recent) 3074F U Protein/Creat Ratio 4. Sinusitis (J32.9: Chronic sinusitis, unspecified) As per #3. Ordered: Body Mass Index (BMI) documented 3008F CBC w/ Auto Diff Comprehensive Metabolic Panel Current tobacco non-user 1036F Depression Screening Negative 3352F HgbA1c Influenza immunization administered or previously received 4274F Lipid Panel Microalbumin Level Urine Most recent diastolic blood pressure <80 mm Hg 3078F Patient screen for fall risk: no falls in last year or 1 fall with no injury in last year 1101F Systolic BP <130 mm Hg (Most Recent) 3074F U Protein/Creat Ratio 5. Hypercholesterolemia (E78.00: Pure hypercholesterolemia, unspecified) Continue on cholesterol medication as before. Will check lipid today. Ordered: Body Mass Index (BMI) documented 3008F CBC w/ Auto Diff Comprehensive Metabolic Panel Current tobacco non-user 1036F Depression Screening Negative 3352F HgbA1c Influenza immunization administered or previously received 4274F Lipid Panel Microalbumin Level Urine Most recent diastolic blood pressure <80 mm Hg 3078F Patient screen for fall risk: no falls in last year or 1 fall with no injury in last year 1101F Systolic BP <130 mm Hg (Most Recent) 3074F U Protein/Creat Ratio 6. BMI 26.0-26.9,adult (Z68.26: Body mass index [BMI] 26.0-26.9, adult) BMI educa (more content not included)... Normal [facility] Comment on above: Result Comment: Elec tronically Signed By: Navjot KAYE, Julee Byers\.br\Date and Time Signed: 02/20/24 14:26 EDT HEMATOLOGYOrdered By: Cate Pastrana on 02-20-2024 Basophils/100 WBC (Bld) 0.9 % Normal 0.0 - 2.0 % [facility] Basophils/Leukocytes Auto (Bld) [Pure # fraction] 0.1 E9/L Normal 0.0 - 0.2 E9/L [facility] Eosinophils (Bld) [#/Vol] 0.1 E9/L Normal 0.0 - 0.5 E9/L [facility] Eosinophils/100 WBC (Bld) 1.3 % Normal 0.0 - 8.0 % [facility] Erythrocyte distribution width (RBC) [Ratio] 14.9 % High 10.9 - 14.2 % [facility] Hematocrit (Bld) [Volume fraction] 44.2 % Normal 34.0 - 46.0 % [facility] Hemoglobin (Bld) [Mass/Vol] 15.0 g/dL Normal 12.0 - 16.0 gm/dL [facility] Lymphocytes (Bld) [#/Vol] 1.4 E9/L Normal 1.0 - 4.0 E9/L [facility] Lymphocytes/100 WBC (Bld) 22.2 % Normal 14.0 - 50.0 % [facility] MCH (RBC) [Entitic mass] 31.7 pg Normal 27.0 - 34.0 pg [facility] MCHC (RBC) [Mass/Vol] 33.9 g/dL Normal 31.4 - 36.0 gm/dL [facility] MCV (RBC) [Entitic vol] 93.5 fL Normal 80.0 - 100.0 fL [facility] Monocytes (Bld) [#/Vol] 0.3 E9/L Normal 0.2 - 1.0 E9/L [facility] Monocytes/100 WBC (Bld) 5.4 % Normal 4.0 - 14.0 % [facility] Neutrophils (Bld) [#/Vol] 4.5 E9/L Normal 2.0 - 7.5 E9/L [facility] Neutrophils/100 WBC (Bld) 70.2 % Normal 36.0 - 75.0 % [facility] Platelet 215.0 E9/L Normal 150.0 - 500.0 E9/L [facility] Platelet mean volume (Bld) [Entitic vol] 8.7 fL Normal 6.4 - 10.8 fL [facility] RBC (Bld) [#/Vol] 4.7 E12/L Normal 4.3 - 5.9 E12/L Re misol Heme WBC corrected for nucl RBC Auto (Bld) [#/Vol] 6.4 E9/L Normal 4.0 - 11.0 E9/L [facility] TeoA2qio 02-20-2024 HbA1c (Bld) [Mass fraction] 5.9 % Normal <=5.9 [facility] Comment on above: Performed By: #### [id number] #### [facility] [address] [place] [address] Lipid Panelon 02-20-2024 Cholesterol [Mass/Vol] 202 mg/dL High 120-200 [facility] Comment on above: Performed By: #### 2 [id number] #### [facility] [address] [place] [address] Cholesterol in HDL [Mass/Vol] 65 mg/dL Invalid Interpretation Code [facility] Comment on above: Result Comment: '>= 60 LOW RISK' '<= 40 HIGH RISK' Performed By: #### 2 [id number] #### [facility] [address] [place] [address] Cholesterol in LDL [Mass/Vol] 123 mg/dL Normal <=129 [facility] Comment on above: Performed By: #### 2 [id number] #### [facility] [address] [place] [address] Cholesterol in VLDL [Mass/Vol] 23 mg/dL Normal 7-40 [facility] Comment on above: Performed By: #### 2 [id number] #### [facility] [address] [place] [address] Triglyceride [Mass/Vol] 114 mg/dL Normal <=149 [facility] Comment on above: Performed By: #### 2 [id number] #### [facility] [address] [place] [address] U Microalbon 02-20-2024 Albumin DL <= 20 mg/L (U) [Mass/Vol] mg/dL Normal 0.0-1.9 [facility] Comment on above: Performed By: #### 1 [id number] #### [facility] [address] [place] [address] eGFRon 02-20-2024 eGFR 81 mL/min/1.73 m2 Normal >=59 [facility] Comment on above: Order Comment: Order added by Discern Expert. Performed By: #### 1 [id number] #### [facility] [address] [place] [address] Retail - Clinical Noteon Retail - Clinical Note [id number]#1.00 TIFF Normal [facility] ED Note-Physicianon 01-09-20 ED Note-Physician [id number]#1.0 0TIFF Normal [facility] RAD - MISCon 01-09-2024 RAD - MISC [id number]#1.0 0TIFF Normal [facility] [id number]#1.00 TIFF Normal [facility] Patient Correspondenceon Patient Correspondence [id number]#1.0 0TIFF [facility] Ambulatory Visit Summaryon 0 12-19-2023 Ambulatory Visit Summary YAMILE SIDDIQUI Amber :1955 Visit Date:12/19/2023 Ambulatory Visit Instructions Your [...] Follow-Up Appointments Monday 2:00 PM EDT With: Navjot KAYE, Julee Byers Where: [facility] Normal [address] [place] [address]- \.br\ Medications\.br \ What How Much When [...] choosing us for your care.\.br\ \.br\ [facility] Family Medicine Office/Clini c Noteon 12-19-2023 Family Medicine Office/Clinic Note HPI Staff Yamile is a 68 year old female presenting for 1 month follow up DYLAN 11/20/23 Eustachian tube disorder 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 Pt has appointment in January [...] Given Postpone due to refusal SARS-CoV-2 (COVID-19) mRNAMUL.ORD![id number] 08/10/2022 Recorded influenza virus vaccine, inactivated 05/13/2022 [...] Recorded pneumococcal 23-valent vaccine 04/24/2015 Recorded Normal [facility] Comment on above: Result Comment: Elec [...] following in (more content not included)... Normal [facility] Ambulatory Visit Summaryon 0 11-20-2023 Ambulatory Visit Summary YAMILE SIDDIQUI :1955 Visit Date:11/20/2023 Ambulatory Visit Instructions Your [...] With: Julee De Los Santos MD Where: [facility] [place] Normal [address] [place] [address]- \.br\ Medications\.br \ What How Much When Why Instructions\.b r\ New ciclopirox topical ([place] Nail Lacquer 8% topical solution) 1 Application Topical Every day Pickup at [facility]\.br\ Unchanged acetaminophen (Tylenol) 650 Milligram By [...] or concerns \.br\ Pharmacy Information\.br \ [email or web address]: [address] [place], [place] [phone]\.br\ Allergies\.br\ cefuroxime (Unknown)\.br\ Problems\.br\ Ongoing - Any [...] for choosing us for your care.\.br\ \.br\ [facility] 11-20-2023 Consent [id number]#1.0 0TIFF Normal [facility] Family Medicine Office/Clini c Noteon 11-20-2023 [...] aleah, Topical, Daily, 9.9 mL, Refill(s) 0, [facility], 168, cm, 11/20/23 10:51:00 EDT, Height/Length [...] 35 mg Tab, See Instructions, Not taking: fountain server told her to hold off on this [...] Given Postpone due to refusal SARS-CoV-2 (COVID-19) mRNAMUL.ORD![id number] 08/10/2022 Recorded influenza virus vaccine, inactivated 05/13/2022 Recorded SARS-CoV-2 (COVID-19) mRNA-1273 vaccine 12/15/2021 Recorded 2022-12-02: TPV60 zoster vaccine, inactivated 08/13/2021 Recorded SARS-CoV-2 (COVID-19) mRNA-1273 vaccine 05/20/2021 Recorded 2022-12-02 (more content not included)... [facility] Comment on above: Result Comment: Elec tronically Signed By: Navjot KAYE, Julee Morgan.br\Date and Time Signed: 11/20/23 11:22 EDT Consultation Noteon 11-17-19 Consultation Note [id number]#1.0 0TIFF Normal [facility] CBC W Auto Differential pane l (Bld)on 11-15-2023 Basophils (Bld) [#/Vol] 0.06 10*3/uL [facility] Basophils/100 WBC (Bld) 0.9 % [facility] Differential cell count method Nom (Bld) Auto [facility] Eosinophils (Bld) [#/Vol] 0.10 10*3/uL [facility] Eosinophils/100 WBC (Bld) 1.5 % [facility] Erythrocyte distribution width (RBC) [Ratio] 14.3 % 11.5 - 15.0 % [facility] Hematocrit (Bld) [Volume fraction] 46.8 % High 36.0 - 46.0 % [facility] Hemoglobin (Bld) [Mass/Vol] 15.4 g/dL 11.5 - 15.5 g/dL [facility] Immature granulocytes (Bld) [#/Vol] [facility] Immature granulocytes/100 WBC (Bld) 0.2 % [facility] Interpretation and review of laboratory results Abnormal [facility] Lymphocytes (Bld) [#/Vol] 1.96 10*3/uL [facility] Lymphocytes/100 WBC (Bld) 29.5 % [facility] MCH (RBC) [Entitic mass] 31.4 pg 26.0 - 34.0 pg [facility] MCHC (RBC) [Mass/Vol] 32.9 g/dL 30.5 - 36.0 g/dL [facility] MCV (RBC) [Entitic vol] 95.3 fL 80.0 - 100.0 fL [facility] Monocytes (Bld) [#/Vol] 0.39 10*3/uL [facility] Monocytes/100 WBC (Bld) 5.9 % [facility] Neutrophils (Bld) [#/Vol] 4.13 10*3/uL [facility] Neutrophils/100 WBC (Bld) 62.0 % [facility] Nucleated RBC (Bld) [#/Vol] NINF [facility] Nucleated RBC/100 WBC (Bld) [Ratio] 0.0 % /100 WBC [facility] Platelet mean volume (Bld) [Entitic vol] 10.0 fL 9.0 - 12.7 fL [facility] Platelets (Bld) [#/Vol] 221 10*3/uL [facility] RBC (Bld) [#/Vol] 4.91 10*6/uL 3.90 - 5.2 0 m/uL [facility] WBC (Bld) [#/Vol] 6.65 10*3/uL [facility] Physician Referralon 024 Physician Referral [id number]#1. 00TIFF [facility] Ambulatory Visit Summaryon 0 11-01-2023 Ambulatory Visit Summary YAMILE SIDDIQUI :1955 Visit Date:11/01/2023 Ambulatory Visit Instructions Your Diagnosis Nasal congestion Osteopenia Hypercholesterolemia Type 2 diabetes mellitus Rheumatoid arthritis involving multiple sites with positive rheumatoid factor BMI 27.0-27.9,adult Over weight Former smoker Your Care Team Attending Physician - Julee De Los Santos MD. Primary Care Physician - Julee De Los Santos MD. This Is Your Medications List atorvastatin (atorvastatin [...] Appointments Monday. 2023 3:30 PM EDT With: Navjot KAYE, Julee Byers Where: [facility] [place] Invalid Interpretation Code Osteopenia [facility] Office/Clini c Noteon 11-01-2023 Family Medicine Office/Clinic [...] q7day, # 4 tab(s), Refills(s) 0, Pharmacy: [facility], 168, cm, 10/09/23 15:44:00 EDT, Height/Length Dosing, 76.4, kg, 10/09/23 15:44:00 EDT, Weight Dosing Body Mass Index (BMI) documented 3008F Current tobacco non-user 1036F Depression Screening Negative 3352F [facility] External Ambulatory Referral Influenza immunization administered or [...] q7day, # 4 tab(s), Refills(s) 0, Pharmacy: [facility], 168, cm, 10/09/23 15:44:00 EDT, Height/Length Dosing, 76.4, kg, 10/09/23 15:44:00 EDT, Weight Dosing Body Mass Index (BMI) documented 3008F Current tobacco non-user 1036F Depression Screening Negative 3352F [facility] External Ambulatory Referral Influenza immunization administered or previously received 4274F Most recent diastolic blood pressure 80-89 mm Hg 3079F Patient screen for fall risk: no falls in last year or 1 fall with no injury in last year 1101F Systolic BP <130 mm Hg (Most Recent) 3074F 3. Hypercholesterolemia (E78.00: Pure hypercholesterolemia, unspecified) - Continue on Cholesterol meds Ordered: [facility] External Ambulatory Referral 4. Type 2 diabetes mellitus (E11.9: Type 2 diabetes mellitus without complications) - Well controlled Ordered: alendronate, 35 mg = 1 tab(s), Oral, q7day, # 4 tab(s), Refills(s) 0, Pharmacy: [facility], 168, cm, 10/09/23 15:44:00 EDT, Height/Length Dosing, 76.4, kg, 10/09/23 15:44:00 EDT, Weight Dosing [facility] External Ambulatory Referral 5. Rheumatoid arthritis involving multiple sites with positive rheumatoid factor (M05.79: Rheumatoid arthritis with rheumatoid factor of multiple sites without organ or systems involvement) - Continue on meds as before. Ordered: [facility] External Ambulatory Referral 6. BMI 27.0-27.9,adult (Z68.27: Body mass index [BMI] 27.0-27.9, adult) - BMI education given Ordered: alendronate, 35 mg = 1 tab(s), Oral, q7day, # 4 tab(s), Refills(s) 0, Pharmacy: [facility], 168, cm, 10/09/23 15:44:00 EDT, Height/Length [...] q7day, # 4 tab(s), Refills(s) 0, Pharmacy: [facility], 168, cm, 10/09/23 15:44:00 EDT, Height/Length Dosing, 76.4, kg, 10/09/23 15:44:00 EDT, Weight Dosing Body Mass Index (BMI) documented 3008F Current tobacco non-user 1036F Depression Screening Negative 3352F Influenza immunization administered or previously received 4274F Most recent diastolic blood pressure 80-89 mm Hg 3079F Patient screen for fall risk: no falls in (more content not included)... Normal [facility] Comment on above: Result Comment: Elec tronically Signed By: Navjot KAYE, Julee Morgan.br\Date and Time Signed: 11/01/23 11:11 EDT Physician Referralon 024 Physician Referral [id number] 01 [id number]#1. 00TIFF [facility] Ambulatory Visit Summaryon 0 10-09-2023 Ambulatory Visit Summary YAMILE SIDDIQUI :1955 Visit Date:10/09/2023 Ambulatory Visit Instructions Your [...] 27.0-27.9,adult Over weight Former smoker Pickup at [facility] Unchanged acetaminophen (Tylenol) 650 Milligram By [...] 0.5 mg after 4 weeks Pharmacy Information [facility]: [address] [place] [phone] Allergies cefuroxime (Unknown) Problems Ongoing - Any [...] for choosing us for your care. Normal [facility] Family Medicine Office/Clini c Noteon 10-09-2023 Family Medicine Office/Clinic Note HPI Staff Yamile is a 68 year old female presenting for one month follow up DM Says she's still sick from Dec. feels like her head is plugged up [...] and then per above still sick from Dec. History of Present Illness - Here for [...] - Follow up in 3 months Ordered: alendronate, 35 mg = 1 tab(s), Oral, q7day, # 4 tab(s), Refills(s) 0, Pharmacy: [facility], 168, cm, 10/09/23 15:44:00 EDT, Height/Length [...] q7day, # 4 tab(s), Refills(s) 0, Pharmacy: [facility], 168, cm, 10/09/23 15:44:00 EDT, Height/Length Dosing, 76.4, kg, 10/09/23 15:44:00 EDT, Weight Dosing 3. Eustachian tube disorder (H69.90: Unspecified Eustachian tube disorder, unspecified ear) - As above Ordered: alendronate, 35 mg = 1 tab(s), Oral, q7day, # 4 tab(s), Refills(s) 0, Pharmacy: [facility], 168, cm, 10/09/23 15:44:00 EDT, Height/Length Dosing, 76.4, kg, 10/09/23 15:44:00 EDT, Weight Dosing 4. Osteopenia (M85.80: Other specified disorders of bone density and structure, unspecified site) - Discussed bisphosphonates - Pt will take. Ordered: alendronate, 35 mg = 1 tab(s), Oral, q7day, # 4 tab(s), Refills(s) 0, Pharmacy: [facility], 168, cm, 10/09/23 15:44:00 EDT, Height/Length Dosing, 76.4, kg, 10/09/23 15:44:00 EDT, Weight Dosing 5. Stye (H00.019: Hordeolum externum unspecified eye, unspecified eyelid) - Resolving 6. BMI 27.0-27.9,adult (Z68.27: Body mass index [BMI] 27.0-27.9, adult) - BMI education given Ordered: alendronate, 35 mg = 1 tab(s), Oral, q7day, # 4 tab(s), Refills(s) 0, Pharmacy: [facility], 168, cm, 10/09/23 15:44:00 EDT, Height/Length [...] q7day, # 4 tab(s), Refills(s) 0, Pharmacy: [facility], 168, cm, 10/09/23 15:44:00 EDT, Height/Length [...] q7day, # 4 tab(s), Refills(s) 0, Pharmacy: [facility], 168, cm, 10/09/23 15:44:00 EDT, Height/Length Dosing, 76.4, kg, 10/09/23 15:44:00 EDT, Weight Dosing Body Mass Index (BMI) documented 3008F Current tobacco non-user 1036F Depression Screening Negative 3352F Influenza immunization administered or previously received 4274F Most recent diastolic blood pressure <80 mm Hg 3078F Patient screen for (more content not included)... [facility] Comment on above: Result Comment: Elec tronically Signed By: Navjot KAYE, Julee Byers\.br\Date and Time Signed: 10/09/23 16:15 EDT Provider Letteron 10-09-2023 Provider Letter October 09, 2023 YAMILE SIDDIQUI [address] [place] [id number] : 1955 To Whom It May Concern, Please excuse above patient from work, Rocio Mcconnell was here with her mother for her appt. @ 3:[address] De Los Santos. Date of Illness: From: _ To: _ May Return to Work On:10-10-23 Restrictions: _ Comments: _ Sincerely, [address] [address] [facility] CBC W Auto Differential pane l (Bld)on 05-10-2023 Basophils (Bld) [#/Vol] 0.08 10*3/uL <0.11 k/uL [facility] Basophils/100 WBC (Bld) 1.2 % [facility] Differential cell count method Nom (Bld) Auto [facility] Eosinophils (Bld) [#/Vol] 0.17 10*3/uL <0.46 k/uL [facility] Eosinophils/100 WBC (Bld) 2.6 % [facility] Erythrocyte distribution width (RBC) [Ratio] 13.3 % 11.5 - 15.0 % [facility] Hematocrit (Bld) [Volume fraction] 43.6 % 36.0 - 46.0 % [facility] Hemoglobin (Bld) [Mass/Vol] 14.3 g/dL 11.5 - 15.5 g/dL [facility] Immature granulocytes (Bld) [#/Vol] <0.10 k/uL [facility] Immature granulocytes/100 WBC (Bld) 0.2 % [facility] Lymphocytes (Bld) [#/Vol] 1.98 10*3/uL 1.00 - 4.00 k/uL [facility] Lymphocytes/100 WBC (Bld) 29.9 % [facility] MCH (RBC) [Entitic mass] 30.6 pg 26.0 - 34.0 pg [facility] MCHC (RBC) [Mass/Vol] 32.8 g/dL 30.5 - 36.0 g/dL [facility] MCV (RBC) [Entitic vol] 93.2 fL 80.0 - 100.0 fL [facility] Monocytes (Bld) [#/Vol] 0.43 10*3/uL <0.87 k/uL [facility] Monocytes/100 WBC (Bld) 6.5 % [facility] Neutrophils (Bld) [#/Vol] 3.96 10*3/uL 1.45 - 7.50 k/uL [facility] Neutrophils/100 WBC (Bld) 59.6 % [facility] Nucleated RBC (Bld) [#/Vol] <0.01 k/uL [facility] Nucleated RBC/100 WBC (Bld) [Ratio] 0.0 /100 WBC [facility] Platelet mean volume (Bld) [Entitic vol] 10.5 fL 9.0 - 12.7 fL [facility] Platelets (Bld) [#/Vol] 200 10*3/uL 150 - 400 k/uL [facility] RBC (Bld) [#/Vol] 4.68 10*6/uL 3.90 - 5.2 0 m/uL [facility] WBC (Bld) [#/Vol] 6.63 10*3/uL 3.70 - 11. 00 k/uL [facility] Comprehensive metabolic 2000 panelon 05-10-2023 Albumin [Mass/Vol] 4.0 g/dL 3.9 - 4.9 g/dL [facility] ALP [Catalytic activity/Vol] 70 U/L 34 - 123 U/L [facility] ALT [Catalytic activity/Vol] 12 U/L 7 - 38 U/L [facility] Anion gap [Moles/Vol] 10 mmol/L 9 - 18 mmol/L [facility] AST [Catalytic activity/Vol] 15 U/L 13 - 35 U/L [facility] Bilirubin [Mass/Vol] 0.4 mg/dL 0.2 - 1.3 mg/dL [facility] Calcium [Mass/Vol] 9.3 mg/dL 8.5 - 10. 2 mg/dL [facility] Chloride [Moles/Vol] 104 mmol/L 97 - 105 mmol/L [facility] CO2 [Moles/Vol] 26 mmol/L 22 - 30 mmol/L [facility] Creatinine [Mass/Vol] 0.71 mg/dL 0.58 - 0.96 mg/dL [facility] Estimated Glomerular Filtration Rate 94 mL/min/1.73m >=60 mL/min/1.73m [facility] Glucose [Mass/Vol] 97 mg/dL 74 - 99 mg/dL [facility] Potassium [Moles/Vol] 4.4 mmol/L 3.7 - 5.1 mmol/L [facility] Protein [Mass/Vol] 6.0 g/dL Low 6.3 - 8.0 g/dL [facility] Sodium [Moles/Vol] 140 mmol/L 136 - 144 mmol/L [facility] Urea nitrogen [Mass/Vol] 12 mg/dL 7 - 21 mg/dL [facility] No Panel Informationon 05-10 [facility] CBC W Auto Differential pane l (Bld)on 02-08-2023 Basophils (Bld) [#/Vol] 0.09 10*3/uL <0.11 k/uL [facility] Basophils/100 WBC (Bld) 1.3 % [facility] Differential cell count method Nom (Bld) Auto [facility] Eosinophils (Bld) [#/Vol] 0.14 10*3/uL <0.46 k/uL [facility] Eosinophils/100 WBC (Bld) 2.1 % [facility] Erythrocyte distribution width (RBC) [Ratio] 14.0 % 11.5 - 15.0 % [facility] Hematocrit (Bld) [Volume fraction] 44.1 % 36.0 - 46.0 % [facility] Hemoglobin (Bld) [Mass/Vol] 14.3 g/dL 11.5 - 15.5 g/dL [facility] Immature granulocytes (Bld) [#/Vol] <0.10 k/uL [facility] Immature granulocytes/100 WBC (Bld) 0.3 % [facility] Lymphocytes (Bld) [#/Vol] 2.30 10*3/uL 1.00 - 4.00 k/uL [facility] Lymphocytes/100 WBC (Bld) 34.1 % [facility] MCH (RBC) [Entitic mass] 30.5 pg 26.0 - 34.0 pg [facility] MCHC (RBC) [Mass/Vol] 32.4 g/dL 30.5 - 36.0 g/dL [facility] MCV (RBC) [Entitic vol] 94.0 fL 80.0 - 100.0 fL [facility] Monocytes (Bld) [#/Vol] 0.44 10*3/uL <0.87 k/uL [facility] Monocytes/100 WBC (Bld) 6.5 % [facility] Neutrophils (Bld) [#/Vol] 3.75 10*3/uL 1.45 - 7.50 k/uL [facility] Neutrophils/100 WBC (Bld) 55.7 % [facility] Nucleated RBC (Bld) [#/Vol] <0.01 k/uL [facility] Nucleated RBC/100 WBC (Bld) [Ratio] 0.0 /100 WBC [facility] Platelet mean volume (Bld) [Entitic vol] 9.8 fL 9.0 - 12.7 fL [facility] Platelets (Bld) [#/Vol] 222 10*3/uL 150 - 400 k/uL [facility] RBC (Bld) [#/Vol] 4.69 10*6/uL 3.90 - 5.2 0 m/uL [facility] WBC (Bld) [#/Vol] 6.74 10*3/uL 3.70 - 11. 00 k/uL [facility] XR Foot - bilateral AP and L ateral and obliqueon 11-10-2022 IMPRESSION: 1. 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: [employer] Transcribe Date/Time: Nov 10 2022 8:55A Dictated by : KIARRA PARKER MD This examination was interpreted and the report reviewed and electronically signed by: KIARRA PARKER MD on Nov 10 2022 8:57AM [facility] DIVISION OF RADIOLOGY * * *Final Report* * * DATE OF EXAM: Nov 09 2022 3:01PM LZX 5555 - XR FOOT 3V AP/LAT/OBL DAVID / PROCEDURE REASON: Rheumatoid arthritis involving multiple sites with positive rheumatoid factor (H * * * * Physician Interpretation * * * * FOOT RADIOGRAPHS - BILATERAL HISTORY: Rheumatoid arthritis involving multiple sites with positive rheumatoid factor (HCC) TECHNOLOGIST PROVIDED HISTORY (if applicable): chronic david foot pain TECHNIQUE: XR FOOT 3V AP/LAT/OBL DAVID COMPARISON: Bilateral foot radiographs 05/10/2018 RESULT: Bone [...] no soft tissue swelling. Small calcaneal enthesophytes. DIVISION OF RADIOLOGY Provider, [facility] Chacha Evelyn - 11/10/2022 * * *Final Report* * * DATE OF EXAM: Nov 09 2022 3:01PM LZX 5555 - XR FOOT 3V AP/LAT/OBL DAVID / PROCEDURE REASON: Rheumatoid arthritis involving multiple sites with positive rheumatoid factor (H * * * * Physician Interpretation * * * * FOOT RADIOGRAPHS - BILATERAL HISTORY: Rheumatoid arthritis involving multiple sites with positive rheumatoid factor (HCC) TECHNOLOGIST PROVIDED HISTORY (if applicable): chronic david foot pain TECHNIQUE: XR FOOT 3V AP/LAT/OBL DAVID COMPARISON: Bilateral foot radiographs 05/10/2018 RESULT: Bone [...] no soft tissue swelling. Small calcaneal enthesophytes. IMPRESSION IMPRESSION: 1. 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 Mild osteoarthritis of the bilateral hands. 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: [facility] Transcribe Date/Time: Nov 10 2022 8:57A Dictated by : KIARRA PARKER MD This examination was interpreted and the report reviewed and electronically signed by: KIARRA PARKER MD on Nov 10 2022 8:59AM EST DIVISION OF RADIOLOGY * * *Final Report* * * DATE OF EXAM: Nov 09 2022 3:01PM LZX 5556 - XR HAND 3V PA/LAT/OBL DAVID / PROCEDURE REASON: Rheumatoid arthritis involving multiple sites with positive rheumatoid factor (H * * * * Physician Interpretation * * * * HAND RADIOGRAPHS - BILATERAL HISTORY: Rheumatoid arthritis involving multiple sites with positive rheumatoid factor (HCC) TECHNOLOGIST PROVIDED HISTORY (if applicable): chronic david hand joint pain, arthritis TECHNIQUE: XR HAND 3V PA/LAT/OBL DAVID COMPARISON: None available RESULT: There is generalized [...] tissue swelling. Mild negative ulnar variance bilaterally. DIVISION OF RADIOLOGY Provider, [facility] - 11/10/2022 * * *Final Report* * * DATE OF EXAM: Nov 09 2022 3:01PM LZX 5556 - XR HAND 3V PA/LAT/OBL DAVID / PROCEDURE REASON: Rheumatoid arthritis involving multiple sites with positive rheumatoid factor (H * * * * Physician Interpretation * * * * HAND RADIOGRAPHS - BILATERAL HISTORY: Rheumatoid arthritis involving multiple sites with positive rheumatoid factor (HCC) TECHNOLOGIST PROVIDED HISTORY (if applicable): chronic david hand joint pain, arthritis TECHNIQUE: XR HAND 3V PA/LAT/OBL DAVID COMPARISON: None available RESULT: There is generalized [...] tissue swelling. Mild negative ulnar variance bilaterally. IMPRESSION IMPRESSION: 1. Mild osteoarthritis of the bilateral hands. 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: [employer] Transcribe Date/Time: Nov 10 2022 8:57A Dictated by : KIARRA PARKER MD This examination was interpreted and the report reviewed and electronically signed by: KIARRA PARKER MD on Nov 10 2022 8:59AM EST [facility] CBC W Auto Differential pane l (Bld)on 11-09-2022 Basophils (Bld) [#/Vol] 0.08 10*3/uL <0.11 k/uL [facility] Basophils/100 WBC (Bld) 1.3 % [facility] Differential cell count method Nom (Bld) Auto [facility] Eosinophils (Bld) [#/Vol] 0.13 10*3/uL <0.46 k/uL [facility] Eosinophils/100 WBC (Bld) 2.0 % [facility] Erythrocyte distribution width (RBC) [Ratio] 14.5 % 11.5 - 15.0 % [facility] Hematocrit (Bld) [Volume fraction] 46.4 % High 36.0 - 46.0 % [facility] Hemoglobin (Bld) [Mass/Vol] 15.0 g/dL 11.5 - 15.5 g/dL [facility] Immature granulocytes (Bld) [#/Vol] 0.04 10*3/uL <0.10 k/uL [facility] Immature granulocytes/100 WBC (Bld) 0.6 % [facility] Lymphocytes (Bld) [#/Vol] 1.94 10*3/uL 1.00 - 4.00 k/uL [facility] Lymphocytes/100 WBC (Bld) 30.4 % [facility] MCH (RBC) [Entitic mass] 30.4 pg 26.0 - 34.0 pg [facility] MCHC (RBC) [Mass/Vol] 32.3 g/dL 30.5 - 36.0 g/dL [facility] MCV (RBC) [Entitic vol] 93.9 fL 80.0 - 100.0 fL [facility] Monocytes (Bld) [#/Vol] 0.46 10*3/uL <0.87 k/uL [facility] Monocytes/100 WBC (Bld) 7.2 % [facility] Neutrophils (Bld) [#/Vol] 3.73 10*3/uL 1.45 - 7.50 k/uL [facility] Neutrophils/100 WBC (Bld) 58.5 % [facility] Nucleated RBC (Bld) [#/Vol] <0.01 k/uL [facility] Nucleated RBC/100 WBC (Bld) [Ratio] 0.0 /100 WBC [facility] Platelet mean volume (Bld) [Entitic vol] 10.0 fL 9.0 - 12.7 fL [facility] Platelets (Bld) [#/Vol] 231 10*3/uL 150 - 400 k/uL [facility] RBC (Bld) [#/Vol] 4.94 10*6/uL 3.90 - 5.2 0 m/uL [facility] WBC (Bld) [#/Vol] 6.38 10*3/uL 3.70 - 11. 00 k/uL [facility] ESR Westergren method (Bld) [Velocity]on 11-09-2022 ESR (Bld) [Velocity] 6 mm/h 0 - 20 mm/hr [facility] No Panel Informationon 11-09 Radiology Study observation (narrative) [facility] MG MAMM SCREEN 3D DAVID CADon 09-13-2022 MG MAMM SCREEN 3D DAVID CAD Patient: YAMILE SIDDIQUI Exam Date: 09/13/2022 : 1955 Gender:F Ordering : DR ALEKSANDER JIMENEZ . Admission #: [id number] Family : Order #: [id number] CLICK HERE TO VIEW EXAM RADIOLOGY REPORT PROCEDURE: MAMMOGRAM SCREENING 3D BILATERAL CAD COMPARISON: MG MAMM SCREEN DAVID W CAD, 09/25/2020. MG MAMM DAVID SCRN W CAD DIG, 10/14/2013. MG MAMM DAVID SCRN W CAD DIG, 11/12/2009. MG MAMM DAVID SCRN W CAD DIG, 10/09/2002. INDICATIONS: Screening mammography Calculator Name NCI Breast Cancer Risk Assessment Tool 5 Year Breast Cancer Risk 0.80% Lifetime Breast Cancer Risk 3.10% Personal Breast Cancer No Personal Ovarian Cancer No Treatments None Family Cancers Mother with bladder cancer at age 57; Father with liver cancer at age 77. LOCATION: [facility] BREAST COMPOSITION: Scattered areas fibroglandular density. [...] LUMP SHOULD BE BIOPSIED. Dictated by: Miriam Mejia M.D. on 09/15/2022 at 12:10 Approved by: Miriam Mejia M.D. on 09/15/2022 at 12:13 Normal [facility] Glucose Glucometer (BldC) [M ass/Vol]Ordered By: Balwinder Hankins on 07-07-2022 Glucose [Mass/Vol] 117 mg/dL [facility] Comment on above: Random Glucose Refer ence Range is dependent on time and content of last meal. Glucose of more than 200 mg/dL in a nonstressed, ambulatory subject supports the diagnosis of Diabetes Mellitus. No Panel InformationOrdered By: Balwinder Hankins on 07-07-2022 Bedside Glucose Comment Glu2: cleaned meter [facility] CBC AUTO DIFFon 07-05-2022 BASO # 0.1 103/ul Normal 0.0-0.1 [facility] Comment on above: Performed By: #### C BC #### [facility] [address] [place] [address] Dr. Ruthie Richard Basophils/100 WBC (Bld) 0.8 % Normal 0.2-2.0 [facility] Comment on above: Performed By: #### C BC #### [facility] [address] [place] [address] Dr. Ruthie Richard EO # 0.1 103/ul Normal 0.0-0.7 [facility] Comment on above: Performed By: #### C BC #### [facility] [address] [place] [address] Dr. Ruthie Richard Eosinophils/100 WBC (Bld) 1.4 % Normal 0.9-7.0 [facility] Comment on above: Performed By: #### C BC #### [facility] [address] [place] [address] Dr. Ruthie Richard Erythrocyte distribution width (RBC) [Ratio] 13.8 % Normal 11.0-15.0 [facility] Comment on above: Performed By: #### C BC #### [facility] [address] [place] [address] Dr. Ruthie Richard Hematocrit (Bld) [Volume fraction] 44.5 % Normal 36.0-48.0 [facility] Comment on above: Performed By: #### C BC #### [facility] [address] [place] [address] Dr. Ruthie Richard Hemoglobin (Bld) [Mass/Vol] 15.0 g/dL Normal 12.0-16.0 [facility] Comment on above: Performed By: #### C BC #### [facility] [address] [place] [address] Dr. Ruthie Richard IG # 0.01 10e3/ul Normal 0.00-0.03 [facility] Comment on above: Performed By: #### C BC #### [facility] [address] [place] [address] Dr. Ruthie Richard IG % 0.1 % Normal 0.0-0.5 [facility] Comment on above: Performed By: #### C BC #### [facility] [address] [place] [address] Dr. Ruthie Richard LYMPH # 2.0 103/ul Normal 1.2-3.8 [facility] Comment on above: Performed By: #### C BC #### [facility] [address] [place] [address] Dr. Ruthie Richard Lymphocytes/100 WBC (Bld) 27.4 % Normal 20.5-60.0 [facility] Comment on above: Performed By: #### C BC #### [facility] [address] [place] [address] Dr. Ruthie Richard MANUAL DIFF REQ NO Normal [facility] Comment on above: Performed By: #### C BC #### [facility] [address] [place] [address] Dr. Ruthie Richard MCH (RBC) [Entitic mass] 29.6 pg Normal 26.7-34.0 [facility] Comment on above: Performed By: #### C BC #### [facility] [address] [place] [address] Dr. Ruthie Richard MCHC (RBC) [Mass/Vol] 33.7 g/dL Normal 29.9-35.2 [facility] Comment on above: Performed By: #### C BC #### [facility] [address] [place] [address] Dr. Ruthie Richard MCV (RBC) [Entitic vol] 87.9 fL Normal 81.0-99.0 [facility] Comment on above: Performed By: #### C BC #### [facility] [address] [place] [address] Dr. Ruthie Richard MONO # 0.5 103/ul Normal 0.3-0.8 [facility] Comment on above: Performed By: #### C BC #### [facility] [address] [place] [address] Dr. Ruthie Richard Monocytes/100 WBC (Bld) 6.4 % Normal 1.7-12.0 [facility] Comment on above: Performed By: #### C BC #### [facility] [address] [address] [address] Ruthie Richard NEUT # 4.7 103/ul Normal 1.4-6.5 [facility] Comment on above: Performed By: #### C BC #### [facility] [address] [address] [address] Ruthie Richard Neutrophils/100 WBC (Bld) 63.9 % Normal 43.0-75.0 [facility] Comment on above: Performed By: #### C BC #### [facility] [address] [address] [address] Ruthie Richard Platelet mean volume (Bld) [Entitic vol] 9.1 fL Critically low 9.5-13.5 [facility] Comment on above: Performed By: #### C BC #### [facility] [address] [address] [address] Ruthie Richard PLT 220 103/ul Normal 150-450 [facility] Comment on above: Performed By: #### C BC #### [facility] [address] [place] [address] Dr. Ruthie Richard RBC 5.06 106/ul Normal 4.20-5.40 [facility] Comment on above: Performed By: #### C BC #### [facility] [address] [address] [address] Ruthie Richard WBC 7.3 103/ul Normal 4.0-11.0 [facility] Comment on above: Performed By: #### C BC #### [facility] [address] [place] [address] Dr. Ruthie Richard GLYCOHEMOGLOBIN A1Con 2021 ADA RECOMMENDATION SEE BELOW Normal [facility] Comment on above: Result Comment: ADA RECOMMENDED LIMIT 4.0 - 6.0 ADA THERAPEUTIC TARGET < 7.0 ACTION SUGGESTED > 7.0 Performed By: #### A 1C #### [facility] [address] [place] [address] Dr. Ruthie Richard Glucose [Mass/Vol] 143 mg/dL Normal [facility] Comment on above: Performed By: #### A 1C #### [facility] [address] [address] [address] Ruthie Richard HbA1c (Bld) [Mass fraction] 6.6 % Critically high 4.5-6.2 [facility] Comment on above: Performed By: #### A 1C #### [facility] [address] [address] [address] Ruthie Richard LIPID PROFILEon 07-05-2022 CHOL-HDL RATIO NORM SEE BELOW Normal [facility] Comment on above: Result Comment: 3.3 - 4.4 LOW RISK 4.4 - 7.1 AVERAGE RISK 7.1 - 11.0 MODERATE RISK >11.0 HIGH RISK Performed By: #### L IPID, CMP #### [facility] [address] [address] [address] Ruthie Richard Cholesterol [Mass/Vol] 160 mg/dL Normal <=200 [facility] Comment on above: Performed By: #### L IPID, CMP #### [facility] [address] [address] [address] Ruthie Richard Cholesterol in HDL [Mass/Vol] 52 mg/dL Normal 40-60 [facility] Comment on above: Performed By: #### L IPID, CMP #### [facility] [address] [address] [address] Ruthie Richard Cholesterol in LDL [Mass/Vol] 87.0 mg/dL Normal [facility] Comment on above: Performed By: #### L IPID, CMP #### [facility] [address] [address] [address] Ruthie Richard Cholesterol.total/Ch olesterol in HDL [Mass ratio] 3.1 {ratio} Normal [facility] Comment on above: Performed By: #### L IPID, CMP #### [facility] [address] [address] [address] Ruthie Richard HDL NORMAL > or = 60 mg/dl - LO W CARDIOVASCULAR RISK <40 mg/dl - HIGH CARDIOVASCULAR RISK Normal [facility] Comment on above: Performed By: #### L IPID, CMP #### [facility] [address] [address] [address] Ruthie Richard LDL CALC NORMAL SEE BELOW Normal [facility] Comment on above: Result Comment: <100 mg/dl OPTIMAL 100 - 129 mg/dl NEAR OR ABOVE OPTIMAL 130 - 159 mg/dl BORDERLINE HIGH 160 - 189 mg/dl HIGH >190 mg/dl VERY HIGH Performed By: #### L IPID, CMP #### [facility] [address] [address] [address] Ruthie Richard Triglyceride [Mass/Vol] 105 mg/dL Normal <=150 [facility] Comment on above: Performed By: #### L IPID, CMP #### [facility] [address] [address] [address] Ruthie Richard VLDL CALC 21.0 mg/dL Normal [facility] Comment on above: Performed By: #### L IPID, CMP #### [facility] [address] [address] [address] Ruthie Richard MICROALBUMIN, RAND URon 06-23 mALB <1.3 Normal <=30.0 [facility] Comment on above: Performed By: #### M ALBR #### [facility] [id number] Ruthie Richard PROF 14(COMP METB)on 022 Albumin [Mass/Vol] 3.6 g/dL Normal 3.4-5.0 [facility] Comment on above: Performed By: #### L IPID, CMP ####[facility] [address] [address]Dr. Ruthie Richard Albumin/Globulin [Mass ratio] 1.1 {ratio} Normal [facility] Comment on above: Performed By: #### L IPID, CMP ####[facility] [address] [address]Dr. Ruthie Richard ALP [Catalytic activity/Vol] 87 U/L Normal 46-116 [facility] Comment on above: Performed By: #### L IPID, CMP ####[facility] [address] [id number]. Ruthie Richard ALT [Catalytic activity/Vol] 16 U/L Normal 14-59 [facility] Comment on above: Performed By: #### L IPID, CMP ####[facility] [address] [place], [place] [address]Dr. uRthie Richard Anion gap [Moles/Vol] 11.0 mmol/L Normal [facility] Comment on above: Performed By: #### L IPID, CMP ####[facility] [address] [place], [place] [address]Dr. Ruthie Richard AST [Catalytic activity/Vol] 14 U/L Critically low 15-37 [facility] Comment on above: Performed By: #### L IPID, CMP ####[facility] [address] [place], [place] [address]Dr. Ruthie Richard Bilirubin [Mass/Vol] 0.6 mg/dL Normal 0.2-1.0 [facility] Comment on above: Performed By: #### L IPID, CMP ####[facility] [address] [place], [place] [address]Dr. Ruthie Richard Calcium [Mass/Vol] 9.6 mg/dL Normal 8.5-10.1 [facility] Comment on above: Performed By: #### L IPID, CMP ####[facility] [address] [place], [place] [address]Dr. Ruthie Richard Chloride [Moles/Vol] 102 mmol/L Normal 98-107 [facility] Comment on above: Performed By: #### L IPID, CMP ####[facility] [address] [place], [place] [address]Dr. Ruthie Richard CO2 [Moles/Vol] 27.5 mmol/L Normal 21.0-32.0 [facility] Comment on above: Performed By: #### L IPID, CMP ####[facility] [address] [place], [place] [address]Dr. Ruthie Richard Creatinine [Mass/Vol] 0.77 mg/dL Normal 0.55-1.02 [facility] Comment on above: Performed By: #### L IPID, CMP ####[facility] [address] [address]Dr. Ruthie Richard EGFR-AF [facility] >60 Normal >=60 [facility] Comment on above: Performed By: #### L IPID, CMP ####[facility] [address] [address]Dr. Ruthie Richard EGFR-NON AF [facility] >60 Normal >=60 [facility] Comment on above: Performed By: #### L IPID, CMP ####[facility] [address] [address]Dr. Ruthie Richard Globulin (S) [Mass/Vol] 3.4 g/dL Normal [facility] Comment on above: Performed By: #### L IPID, CMP ####[facility] [address] [place], [place] [address]Dr. Ruthie Richard Glucose [Mass/Vol] 102 mg/dL Normal 74-106 [facility] Comment on above: Performed By: #### L IPID, CMP ####[facility] [address] [place], [place] [address]Dr. Ruthie Richard Potassium [Moles/Vol] 4.5 mmol/L Normal 3.5-5.1 [facility] Comment on above: Performed By: #### L IPID, CMP ####[facility] [address] [place], [place] [address]Dr. Ruthie Richard Protein [Mass/Vol] 7.0 g/dL Normal 6.4-8.2 [facility] Comment on above: Performed By: #### L IPID, CMP ####[facility] [address] [address]Dr. Ruthie Richard Sodium [Moles/Vol] 136 mmol/L Normal 136-145 [facility] Comment on above: Performed By: #### L IPID, CMP ####[facility] [address] [place], [place] [address]Dr. Ruthie Richard Urea nitrogen [Mass/Vol] 10.0 mg/dL Normal 7.0-18.0 [facility] Comment on above: Performed By: #### L IPID, CMP ####[facility] [address] [id number]. Ruthie Richard Urea nitrogen/Creatinine [Mass ratio] 13.0 mg/mg Normal [facility] Comment on above: Performed By: #### L IPID, CMP ####[facility] [address] [id number]. Ruthie Jose Manuel CBC AUTO DIFFon 02-16-2022 BASO # 0.1 103/ul Normal 0.0-0.1 [facility] Comment on above: Performed By: #### C BC ####[facility] [address] [place], [place] [address]Dr. Lindacristy Richard Basophils/100 WBC (Bld) 1.2 % Normal 0.2-2.0 [facility] Comment on above: Performed By: #### C BC ####[facility] [address] [place], [place] [address]Dr. Lindacristy Richard EO # 0.1 103/ul Normal 0.0-0.7 [facility] Comment on above: Performed By: #### C BC ####[facility] [address] [place], [place] [address]Dr. Ruthie Jose Manuel Eosinophils/100 WBC (Bld) 2.1 % Normal 0.9-7.0 [facility] Comment on above: Performed By: #### C BC ####[facility] [address] [place], [place] [address]Dr. Ruthie Jose Manuel Erythrocyte distribution width (RBC) [Ratio] 13.9 % Normal 11.0-15.0 [facility] Comment on above: Performed By: #### C BC ####[facility] [address] [place], [place] [address]Dr. Ruthie Jose Manuel Hematocrit (Bld) [Volume fraction] 45.6 % Normal 36.0-48.0 [facility] Comment on above: Performed By: #### C BC ####[facility] [address] [place], [place] [address]Dr. Ruthie Jsoe Manuel Hemoglobin (Bld) [Mass/Vol] 14.8 g/dL Normal 12.0-16.0 [facility] Comment on above: Performed By: #### C BC ####[facility] [address] [address]Dr. Ruthie Richard IG # 0.01 10e3/ul Normal 0.00-0.03 [facility] Comment on above: Performed By: #### C BC ####[facility] [address] [address]Dr. Ruthie Richard IG % 0.2 % Normal 0.0-0.5 [facility] Comment on above: Performed By: #### C BC ####[facility] [address] [place], [place] [address]Dr. Ruthie Richard LYMPH # 1.6 103/ul Normal 1.2-3.8 [facility] Comment on above: Performed By: #### C BC ####[facility] Q[address]okxs[address] [place], [place] [address]Dr. Ruthie Richard Lymphocytes/100 WBC (Bld) 27.1 % Normal 20.5-60.0 [facility] Comment on above: Performed By: #### C BC ####[facility] [address]motvrk[address] [place] [address]Dr. Ruthie Richard MANUAL DIFF REQ NO Normal [facility] Comment on above: Performed By: #### C BC ####[facility] Vtzbkmfsgs[address] [place] [address]Dr. Ruthie Richard MCH (RBC) [Entitic mass] 29.6 pg Normal 26.7-34.0 [facility] Comment on above: Performed By: #### C BC ####[facility] Qqpjlqpqkb[address] [place], [place] [address]Dr. Ruthie Richard MCHC (RBC) [Mass/Vol] 32.5 g/dL Normal 29.9-35.2 [facility] Comment on above: Performed By: #### C BC ####[facility] Jkvsdjslxm[address] [place], [place] [address]Dr. Ruthie Richard MCV (RBC) [Entitic vol] 91.2 fL Normal 81.0-99.0 [facility] Comment on above: Performed By: #### C BC ####[facility] [address] [place] [id number]. Ruthie Richard MONO # 0.4 103/ul Normal 0.3-0.8 [facility] Comment on above: Performed By: #### C BC ####[facility] Clnwwujrjp37[address] [place] [address]Dr. Ruthie Richard Monocytes/100 WBC (Bld) 7.3 % Normal 1.7-12.0 [facility] Comment on above: Performed By: #### C BC ####[facility] Rzkrmwbktu49[address] [place] [address]Dr. Ruthie Richard NEUT # 3.6 103/ul Normal 1.4-6.5 [facility] Comment on above: Performed By: #### C BC ####[facility] Fbbhtfgjpx[address] [place], [place] [address]Dr. Ruthie Richard Neutrophils/100 WBC (Bld) 62.1 % Normal 43.0-75.0 [facility] Comment on above: Performed By: #### C BC ####[facility] Ayznnonmig[address] [place], [place] [address]Dr. Ruthie Richard Platelet mean volume (Bld) [Entitic vol] 9.4 fL Critically low 9.5-13.5 [facility] Comment on above: Performed By: #### C BC ####[facility] Xqpiqwoetb[address] [place] [id number]. Ruthie Richard PLT 227 103/ul Normal 150-450 [facility] Comment on above: Performed By: #### C BC ####[facility] Awxmbsdwhp18[address] [place] [id number]. Ruthie Richard RBC 5.00 106/ul Normal 4.20-5.40 [facility] Comment on above: Performed By: #### C BC ####[facility] Jnonbrdbnt4[address] [place] [id number]. Ruthie Richard WBC 5.8 103/ul Normal 4.0-11.0 [facility] Comment on above: Performed By: #### C BC ####[facility] Zcfwevacqq[address] [place] [address]Dr. Ruthie Richard PROF 14(COMP METB)on 022 Albumin [Mass/Vol] 3.7 g/dL Normal 3.4-5.0 [facility] Comment on above: Performed By: #### C MP ####[facility] Sngpbdtebn[address] [place] [address]Dr. Ruthie Richard Albumin/Globulin [Mass ratio] 1.2 {ratio} Normal [facility] Comment on above: Performed By: #### C MP ####[facility] Nsciaanutn[address] [place], [place] [address]Dr. Ruthie Richard ALP [Catalytic activity/Vol] 81 U/L Normal 46-116 [facility] Comment on above: Performed By: #### C MP ####[facility] Yjrsmdiimp4[address] [place], [place] [address]Dr. Ruthie Richard ALT [Catalytic activity/Vol] 31 U/L Normal 14-59 [facility] Comment on above: Performed By: #### C MP ####[facility] Dognokvqph10[address] [place], [place] [address]Dr. Ruthie Richard Anion gap [Moles/Vol] 11.5 mmol/L Normal [facility] Comment on above: Performed By: #### C MP ####[facility] Fktvvdguxx5[address] [place], [place] [address]Dr. Ruthie Richard AST [Catalytic activity/Vol] 18 U/L Normal 15-37 [facility] Comment on above: Performed By: #### C MP ####[facility] Ypndxfgqhq[address] [place], [place] [address]Dr. Ruthie Richard Bilirubin [Mass/Vol] 0.5 mg/dL Normal 0.2-1.0 [facility] Comment on above: Performed By: #### C MP ####[facility] Czszidgdym[address] [place], [place] [address]Dr. Ruthei Richard Calcium [Mass/Vol] 9.3 mg/dL Normal 8.5-10.1 [facility] Comment on above: Performed By: #### C MP ####[facility] Nikmlgxqvi[address] [place] [address]Dr. Ruthie Richard Chloride [Moles/Vol] 106 mmol/L Normal 98-107 [facility] Comment on above: Performed By: #### C MP ####[facility] Ohgxkwpjef[address] [place] [address]Dr. Ruthie Richard CO2 [Moles/Vol] 29.8 mmol/L Normal 21.0-32.0 [facility] Comment on above: Performed By: #### C MP ####[facility] Ifqgzmigke6[address] [place], [place] [address]Dr. Ruthie Richard Creatinine [Mass/Vol] 0.76 mg/dL Normal 0.55-1.02 [facility] Comment on above: Performed By: #### C MP ####[facility] Ykxuhxinin88[address] [place], [place] [address]Dr. Ruthie Richard EGFR-AF [facility] >60 Normal >=60 [facility] Comment on above: Performed By: #### C MP ####[facility] Bemrqaylli64[address] [place], [place] [address]Dr. Ruthie Richard EGFR-NON AF [facility] >60 Normal >=60 [facility] Comment on above: Performed By: #### C MP ####[facility] Jpeuriiqft6[address] [place], [place] [address]Dr. Ruthie Richard Globulin (S) [Mass/Vol] 3.2 g/dL Normal [facility] Comment on above: Performed By: #### C MP ####[facility] Fimtelkoqn[address] [place], [place] [address]Dr. Ruthie Richard Glucose [Mass/Vol] 135 mg/dL Critically high 74-106 [facility] Comment on above: Performed By: #### C MP ####[facility] Aqmdnlkske9[address] [place], [place] [address]Dr. Ruthie Richard Potassium [Moles/Vol] 5.3 mmol/L Critically high 3.5-5.1 [facility] Comment on above: Performed By: #### C MP ####[facility] Ulvsnkiuti26[address] [place] [address]Dr. Ruthie Richard Protein [Mass/Vol] 6.9 g/dL Normal 6.4-8.2 [facility] Comment on above: Performed By: #### C MP ####[facility] Fnqtshzjsw4138 [place] [id number]. Ruthie Richard Sodium [Moles/Vol] 142 mmol/L Normal 136-145 [facility] Comment on above: Performed By: #### C MP ####[facility] Bzmqfewexh55[address] [place] [address]Dr. Ruthie Richard Urea nitrogen [Mass/Vol] 13.0 mg/dL Normal 7.0-18.0 [facility] Comment on above: Performed By: #### C MP ####[facility] Haizmyeqkt[address] [place] [address]Dr. Ruthie Richard Urea nitrogen/Creatinine [Mass ratio] 17.1 mg/mg Normal [facility] Comment on above: Performed By: #### C MP ####[facility] Wxxciuuhvc[address] [place] [address]Dr. Ruthie Richard [facility] SED RATE 14 mm/hr Normal <=30 [facility] Comment on above: Performed By: #### S EDR ####[facility] Itxxacocem50[address] [place] [address]Dr. Ruthie Richard GLYCOHEMOGLOBIN A1Con 2021 ADA RECOMMENDATION SEE BELOW Normal [facility] Comment on above: Result Comment: ADA RECOMMENDED LIMIT 4.0 - 6.0 ADA THERAPEUTIC TARGET < 7.0 ACTION SUGGESTED > 7.0 Performed By: #### A 1C #### [facility] [address] [place] [address] [address] Ruthie Richard Glucose [Mass/Vol] 203 mg/dL Normal [facility] Comment on above: Performed By: #### A 1C #### [facility] [address] [place] [address] [address] Ruthie Richard HbA1c (Bld) [Mass fraction] 8.7 % Critically high 4.5-6.2 [facility] Comment on above: Performed By: #### A 1C #### [facility] [address] [place] [address] Dr. Ruthie Richard PROF CHEM 8 (BAS METB)on Anion gap [Moles/Vol] 11.2 mmol/L Normal [facility] Comment on above: Performed By: #### B MP #### [facility] [address] [place] [address] Dr. Ruthie Richard Calcium [Mass/Vol] 8.8 mg/dL Normal 8.5-10.1 [facility] Comment on above: Performed By: #### B MP #### [facility] [address] [place] [address] Dr. Ruthie Richard Chloride [Moles/Vol] 105 mmol/L Normal 98-107 [facility] Comment on above: Performed By: #### B MP #### [facility] [address] [place] [address] Dr. Ruthie Richard CO2 [Moles/Vol] 29.6 mmol/L Normal 21.0-32.0 [facility] Comment on above: Performed By: #### B MP #### [facility] [address] [place] [address] Dr. Ruthie Richard Creatinine [Mass/Vol] 0.82 mg/dL Normal 0.55-1.02 [facility] Comment on above: Performed By: #### B MP #### [facility] [address] [place] [address] Dr. Ruthie Richard EGFR-AF [facility] >60 Normal >=60 [facility] Comment on above: Performed By: #### B MP #### [facility] [address] [place] [address] Dr. Ruthie Richard EGFR-NON AF [facility] >60 Normal >=60 [facility] Comment on above: Performed By: #### B MP #### [facility] [address] [place] [address] Dr. Ruthie Richard Glucose [Mass/Vol] 198 mg/dL Critically high 74-106 [facility] Comment on above: Performed By: #### B MP #### [facility] [address] [place] [address] [address] Ruthie Richard Potassium [Moles/Vol] 3.8 mmol/L Normal 3.5-5.1 [facility] Comment on above: Performed By: #### B MP #### [facility] [address] [place] [address] [address] Ruthie Richard Sodium [Moles/Vol] 142 mmol/L Normal 136-145 [facility] Comment on above: Performed By: #### B MP #### [facility] [address] [place] [address] [address] Ruthie Richard Urea nitrogen [Mass/Vol] 9.0 mg/dL Normal 7.0-18.0 [facility] Comment on above: Performed By: #### B MP #### [facility] [address] [place] [address] [address] Ruthie Richard Urea nitrogen/Creatinine [Mass ratio] 11.0 mg/mg Normal [facility] Comment on above: Performed By: #### B MP #### [facility] [address] [place] [address] [address] Ruthie Richard CBC AUTO DIFFon 11-06-2021 BASO # 0.1 103/ul Normal 0.0-0.1 [facility] Comment on above: Performed By: #### C BC ####[facility] [address]op[address] [place] [address]DrMayra Richard Basophils/100 WBC (Bld) 0.6 % Normal 0.2-2.0 [facility] Comment on above: Performed By: #### C BC ####[facility] Lgtbrjjdsh9257 [place] [address]DrMayra Richard EO # 0.2 103/ul Normal 0.0-0.7 [facility] Comment on above: Performed By: #### C BC ####[facility] Gmggxzdvft4481 [place] [id number] Richard Eosinophils/100 WBC (Bld) 1.4 % Normal 0.9-7.0 [facility] Comment on above: Performed By: #### C BC ####[facility] Vuirajbgxn[address] [place] [address]Dr. Ruthie Richard Erythrocyte distribution width (RBC) [Ratio] 13.7 % Normal 11.0-15.0 [facility] Comment on above: Performed By: #### C BC ####[facility] Zxtqwkcxia92[address] [place], [place] [address]Dr. Ruthie Richard Hematocrit (Bld) [Volume fraction] 45.3 % Normal 36.0-48.0 [facility] Comment on above: Performed By: #### C BC ####[facility] Ugaytbnwql[address] [place], [place] [address]Dr. Ruthie Richard Hemoglobin (Bld) [Mass/Vol] 15.0 g/dL Normal 12.0-16.0 [facility] Comment on above: Performed By: #### C BC ####[facility] Yabismjmxi[address] [place], [place] [address]Dr. Ruthie Richard IG # 0.14 10e3/ul Critically high 0.00-0.03 [facility] Comment on above: Performed By: #### C BC ####[facility] Rkdbgchmdw3[address] [place], [place] [address]Dr. Ruthie Richard IG % 1.3 % Critically high 0.0-0.5 [facility] Comment on above: Performed By: #### C BC ####[facility] Eusdx[address]fdt[address] [place], [place] [address]Dr. Ruthie Richard LYMPH # 3.0 103/ul Normal 1.2-3.8 [facility] Comment on above: Performed By: #### C BC ####[facility] Acxujtyoja90[address] [place], [place] [address]Dr. Ruthie Richard Lymphocytes/100 WBC (Bld) 26.4 % Normal 20.5-60.0 [facility] Comment on above: Performed By: #### C BC ####[facility] Yknfcyizjk[address] [place], [place] [address]Dr. Ruthie Richard MANUAL DIFF REQ NO Normal [facility] Comment on above: Performed By: #### C BC ####[facility] Fwyqpqffoj8[address] [place] [id number]. Ruthie Jose Manuel MCH (RBC) [Entitic mass] 29.6 pg Normal 26.7-34.0 [facility] Comment on above: Performed By: #### C BC ####[facility] Uxpucutznn[address] [place] [address]Dr. Ruthie Jose Manuel MCHC (RBC) [Mass/Vol] 33.1 g/dL Normal 29.9-35.2 [facility] Comment on above: Performed By: #### C BC ####[facility] Wioxhuzvpu[address] [place] [address]Dr. Lindacristy Richard MCV (RBC) [Entitic vol] 89.5 fL Normal 81.0-99.0 [facility] Comment on above: Performed By: #### C BC ####[facility] [address]hcwflv[address] [place], [place] [address]Dr. Ruthie Richard MONO # 0.9 103/ul Critically high 0.3-0.8 [facility] Comment on above: Performed By: #### C BC ####[facility] [address]oxijwyl[address] [place], [place] [address]Dr. Ruthie Richard Monocytes/100 WBC (Bld) 7.6 % Normal 1.7-12.0 [facility] Comment on above: Performed By: #### C BC ####[facility] Yjvydqjsyl[address] [place], [place] [address]Dr. Ruthie Richard NEUT # 7.0 103/ul Critically high 1.4-6.5 [facility] Comment on above: Performed By: #### C BC ####[facility] Nrhliijaun[address] [place], [place] [address]Dr. Ruthie Richard Neutrophils/100 WBC (Bld) 62.7 % Normal 43.0-75.0 [facility] Comment on above: Performed By: #### C BC ####[facility] Vncqkyunww[address] [place] [address]Dr. Ruthie Richard Platelet mean volume (Bld) [Entitic vol] 9.8 fL Normal 9.5-13.5 [facility] Comment on above: Performed By: #### C BC ####[facility] [address] [place], [place] [address]Gt. Ruthie Richard PLT 268 103/ul Normal 150-450 [facility] Comment on above: Performed By: #### C BC ####[facility] [address] [place], [place] [address]Le. Ruthie Richard RBC 5.06 106/ul Normal 4.20-5.40 [facility] Comment on above: Performed By: #### C BC ####[facility] Bj[address]mswunh[address] [place], [place] [address]Yc. Ruthie Richard WBC 11.2 103/ul Critically high 4.0-11.0 [facility] Comment on above: Performed By: #### C BC ####[facility] K[address]uvltzmw04[address] [place] [address]DrMayra Richard D-DIMERon 11-06-2021 D-DIMER 0.32 mg/L FEU Normal 0.19-0.50 [facility] Comment on above: Performed By: #### D DIM #### [facility] [address] [place] [address] [address] Ruthie Richard D-DIMER COMMENTS SEE BELOW Normal [facility] Comment on above: Result Comment: Incr eases [...] hospitalization. Performed By: #### D DIM #### [facility] [address] [place] [address] [address] Ruthie Richard PROF CHEM 8 (BAS METB)on Anion gap [Moles/Vol] 12.5 mmol/L Normal [facility] Comment on above: Performed By: #### B MP #### [facility] [address] [place] [address] [address] Ruthie Richard Calcium [Mass/Vol] 9.1 mg/dL Normal 8.5-10.1 [facility] Comment on above: Performed By: #### B MP #### [facility] [address] [place] [address] [address] Ruthie Richard Chloride [Moles/Vol] 97 mmol/L Critically low 98-107 [facility] Comment on above: Performed By: #### B MP #### [facility] [address] [place] [address] [address] Ruthie Richard CO2 [Moles/Vol] 30.7 mmol/L Critically high 22.0-30.0 [facility] Comment on above: Performed By: #### B MP #### [facility] [address] [place] [address] [address] Ruthie Richard Creatinine [Mass/Vol] 1.00 mg/dL Normal 0.52-1.04 [facility] Comment on above: Performed By: #### B MP #### [facility] [address] [place] [address] [address] Ruthie Richard EGFR-AF [facility] >60 Normal >=60 [facility] Comment on above: Performed By: #### B MP #### [facility] [address] [place] [address] [address] Ruthie Richard EGFR-NON AF [facility] 56 mL/min/1.73m2 Critically low >=60 [facility] Comment on above: Performed By: #### B MP #### [facility] [address] [place] [address] [address] Ruthie Richard Glucose [Mass/Vol] 407 mg/dL Critically high 74-106 [facility] Comment on above: Performed By: #### B MP #### [facility] [address] [place] [address] [address] Ruthie Richard Potassium [Moles/Vol] 4.2 mmol/L Normal 3.4-5.0 [facility] Comment on above: Performed By: #### B MP #### [facility] [address] [place] [address] [address] Ruthie Richard Sodium [Moles/Vol] 136 mmol/L Critically low 137-145 [facility] Comment on above: Performed By: #### B MP #### [facility] [address] [place] [address] [address] Ruthie Richard Urea nitrogen [Mass/Vol] 23.0 mg/dL Critically high 7.0-18.0 [facility] Comment on above: Performed By: #### B MP #### [facility] [address] [place] [address] [address] Ruthie Richard Urea nitrogen/Creatinine [Mass ratio] 23.0 mg/mg Normal [facility] Comment on above: Performed By: #### B MP #### [facility] [address] [place] [address] [address] Ruthie Richard XR CHEST 1 Von [...] by: MARGE CAGLE Date: 2021-11-06 18:12 Normal [facility] XR CHEST 1 Von 11-02-2021 XR CHEST [...] acute cardiopulmonary process. Electronically authenticated by: MIRIAM MEJIA Date: 2021-11-02 13:19 Normal [facility] Vital Signs Date Time Vital Sign Value Performing Clinician Facility 02-19-2025 12:53-0400 Body mass index (BMI) [Ratio] 24.9 kg/m2 Harish Chai MD Work Phone: [facility] 02-19-2025 12:53-0400 Body weight 72.12 kg Harish Paula MD Work Phone: [facility] 02-19-2025 12:53-0400 Diastolic blood pressure 48 mm[Hg] Harish Puala MD Work Phone: [facility] 02-19-2025 12:53-0400 Heart rate 72 /min Harish Paula MD Work Phone: [facility] 02-19-2025 12:53-0400 Systolic blood pressure 110 mm[Hg] Harish Paula MD Work Phone: [facility] 02-06-2025 14:13-0400 Diastolic blood pressure 67 mm[Hg] David Coulter MD, PhD [facility] 02-06-2025 14:13-0400 Systolic blood pressure 116 mm[Hg] David Coulter MD, PhD [facility] 12-30-2024 15:03-0400 Diastolic blood pressure 64 mm[Hg] Patrick Gallagher MD [facility] 12-30-2024 15:03-0400 Systolic blood pressure 118 mm[Hg] Patrick Gallagher MD [facility] 11-18-2024 15:23-0400 Diastolic blood pressure 64 mm[Hg] Patrick Gallagher MD [facility] 11-18-2024 15:23-0400 Systolic blood pressure 99 mm[Hg] Patrick Gallagher MD [facility] 10-16-2024 12:20-0400 Body mass index (BMI) [Ratio] 25 kg/m2 Harish Paula MD Work Phone: [facility] 10-16-2024 12:20-0400 Body weight 72.4 kg Harish Paula MD Work Phone: [facility] 10-16-2024 12:20-0400 Diastolic blood pressure 71 mm[Hg] Harish Paula MD Work Phone: [facility] 10-16-2024 12:20-0400 Heart rate 78 /min Harish Paula MD Work Phone: [facility] 10-16-2024 12:20-0400 SaO2% (BldA) [Mass fraction] 96 % Harish Paula MD Work Phone: [facility] 10-16-2024 12:20-0400 Systolic blood pressure 108 mm[Hg] Harish Paula MD Work Phone: [facility] 08-26-2024 15:44-0500 Diastolic blood pressure 64 mm[Hg] Patrick Gallagher MD [facility] 08-26-2024 15:44-0500 Systolic blood pressure 101 mm[Hg] Patrick Gallagher MD [facility] 07-25-2024 13:03-0500 Diastolic blood pressure 75 mm[Hg] Patrick Gallagher MD [facility] 07-25-2024 13:03-0500 Systolic blood pressure 119 mm[Hg] Patrick Gallagher MD [facility] 06-26-2024 12:22-0500 Body height 170.2 cm Harish Paula MD Work Phone: [facility] 06-26-2024 12:22-0500 Body mass index (BMI) [Ratio] 25.76 kg/m2 Harish Paula MD Work Phone: [facility] 06-26-2024 12:22-0500 Body weight 74.6 kg Harish Paula MD Work Phone: [facility] 06-26-2024 12:22-0500 Heart rate 90 /min Harish Paula MD Work Phone: [facility] 06-26-2024 12:22-0500 SaO2% (BldA) [Mass fraction] 95 % Harish Paula MD Work Phone: [facility] 05-29-2024 12:37-0500 Body temperature 98.01 [degF] Manohar Mcdowell PA-C Work Phone: [facility] 03-20-2024 11:35-0400 Body mass index (BMI) [Ratio] 26.16 kg/m2 Harish Paula MD Work Phone: [facility] 03-20-2024 11:35-0400 Body weight 75.75 kg Harish Paula MD Work Phone: [facility] 03-20-2024 11:35-0400 Diastolic blood pressure 73 mm[Hg] Harish Paula MD Work Phone: [facility] 03-20-2024 11:35-0400 Heart rate 60 /min Harish Paula MD Work Phone: [facility] 03-20-2024 11:35-0400 Systolic blood pressure 115 mm[Hg] Harish Paula MD Work Phone: [facility] 03-12-2024 11:22-0400 Body height 170.2 cm Yessy Oakes DPM Work Phone: [facility] 03-12-2024 11:22-0400 Body mass index (BMI) [Ratio] 25.84 kg/m2 Yessy Oakes DPM Work Phone: [facility] [facility] 03-12-2024 11:22-0400 Body weight 74.84 kg Yessy Oakes DPM Work Phone: [facility] 02-07-2024 12:58-0400 Body temperature 98.6 [degF] Manohar Mcdowell PA-C Work Phone: [facility] 11-15-2023 12:24-0400 Body mass index (BMI) [Ratio] 26.16 kg/m2 Harish Paula MD Work Phone: [facility] 11-15-2023 12:24-0400 Body weight 75.75 kg Harish Paula MD Work Phone: [facility] 11-15-2023 12:24-0400 Diastolic blood pressure 66 mm[Hg] Harish Paula MD Work Phone: [facility] 11-15-2023 12:24-0400 Heart rate 76 /min Harish Paula MD Work Phone: [facility] 11-15-2023 12:24-0400 Systolic blood pressure 123 mm[Hg] Harish Paula MD Work Phone: [facility] 05-10-2023 12:08-0400 Body weight 75.75 kg Harish Paula MD Work Phone: [facility] 05-10-2023 12:08-0400 Diastolic blood pressure 66 mm[Hg] Harish Paula MD Work Phone: [facility] 05-10-2023 12:08-0400 Heart rate 77 /min Harish Paula MD Work Phone: [facility] 05-10-2023 12:08-0400 Systolic blood pressure 122 mm[Hg] Harish Paula MD Work Phone: [facility] 02-08-2023 12:40-0400 Body weight 78.02 kg Harish Paula MD Work Phone: [facility] 02-08-2023 12:40-0400 Diastolic blood pressure 62 mm[Hg] Harish Paula MD Work Phone: [facility] 02-08-2023 12:40-0400 Heart rate 66 /min Harish Paula MD Work Phone: [facility] 02-08-2023 12:40-0400 Systolic blood pressure 128 mm[Hg] Harish Paula MD Work Phone: [facility] 11-09-2022 13:10-0400 Body height 170.2 cm Harish Paula MD Work Phone: [facility] 11-09-2022 13:10-0400 Body weight 80.74 kg Harish Paula MD Work Phone: [facility] 11-09-2022 13:10-0400 Diastolic blood pressure 65 mm[Hg] Harish Paula MD Work Phone: [facility] 11-09-2022 13:10-0400 Heart rate 86 /min Harish Paula MD Work Phone: [facility] 11-09-2022 13:10-0400 SaO2% (BldA) [Mass fraction] 94 % Harish Paula MD Work Phone: [facility] 11-09-2022 13:10-0400 Systolic blood pressure 118 mm[Hg] Harish Paula MD Work Phone: [facility] 07-07-2022 08:53-0500 Diastolic blood pressure 68 mm[Hg] MD Aleksander Jimenez Work Phone: [facility] 07-07-2022 08:53-0500 Heart rate 60 /min MD Aleksander Jimenez Work Phone: [facility] 07-07-2022 08:53-0500 Respiratory rate 16 /min MD Aleksander Jimenez Work Phone: [facility] 07-07-2022 08:53-0500 SaO2% (BldA) [Mass fraction] 92 % MD Aleksander Jimenez Work Phone: [facility] 07-07-2022 08:53-0500 Systolic blood pressure 117 mm[Hg] MD Aleksander Jimenez Work Phone: [facility] 07-07-2022 07:51-0500 Body height 170.18 cm MD Aleksander Jimenez Work Phone: [facility] 07-07-2022 07:51-0500 Body mass index (BMI) [Ratio] 27.9 kg/m2 MD Aleksander Jimenez Work Phone: [facility] 07-07-2022 07:51-0500 Body weight 81 kg MD Aleksander Jimenez Work Phone: [facility] 07-07-2022 05:57-0500 Body temperature 97.7 [degF] MD Aleksander Jimenez Work Phone: [facility] Encounters Encounter Date Encounter Type Care Provider Facility Start: 03-17-2025 ambulatory Patrick Gallagher [facility] Start: 03-17-2025 Office outpatient vi sit 25 minutes Patrick Gallagher [facility] Start: 02-19-2025 End: 02-19-2025 Office outpatient visit 25 minutes Harish Paula MD Work Phone: Rheumatology Comment on above: Rheumatoid arthritis involving multiple sites with positive rheumatoid factor (HCC) (Primary Dx); Encounter for long-term (current) use of medications; Osteopenia of multiple sites Start: 02-19-2025 End: 02-19-2025 ambulatory HARISH PAULA Facility:[facility] Start: 02-18-2025 End: 02-18-2025 ambulatory Silvia L Faith Facility:[facility] Start: 02-18-2025 End: 02-18-2025 ambulatory Silvia L Faith Facility:[facility] Start: 02-13-2025 End: 02-13-2025 ambulatory Zurdo Mckeon [facility] Work Phone: Start: 02-13-2025 End: 02-13-2025 Departed Referred Zurdo Mckeon MD -[facility] Start: 02-06-2025 ambulatory David Coulter [facility] Start: 02-06-2025 End: 02-06-2025 Office outpatient visit 25 minutes David Coulter Work Phone: [facility] Start: 02-05-2025 End: 02-05-2025 Encounter identifier Doctor Corporate Work Phone: [facility] Start: 02-05-2025 ambulatory Doctor Corporate [facility] Start: 12-30-2024 ambulatory Patrick Gallagher [facility] Start: 12-30-2024 End: 12-30-2024 Office outpatient visit 25 minutes Patrick Gallagher Work Phone: [facility] Start: 11-18-2024 End: 11-18-2024 Encounter identifier Patrick Gallagher Work Phone: [facility] Start: 11-18-2024 End: 11-18-2024 Patrick Gallagher Work Phone: [facility] Start: 11-18-2024 ambulatory Patrick Navaslnidsay [facility] Start: 10-17-2024 End: 12-17-2024 Follow-up encounter Harish Paula MD Work Phone: [facility] Start: 10-16-2024 End: 10-16-2024 Office outpatient visit 15 minutes Harish Paula MD Work Phone: Rheumatology Comment on above: Rheumatoid arthritis involving multiple sites with positive rheumatoid factor (HCC) (Primary Dx); Encounter for long-term (current) use of medications; Thoracic back pain, unspecified back pain laterality, unspecified chronicity; Arthritis Start: 10-16-2024 End: 10-16-2024 ambulatory JULEE DE LOS SANTOS Facility:[facility] Start: 10-07-2024 End: 10-07-2024 Encounter identifier Patrick Gallagher Work Phone: [facility] Start: 10-07-2024 End: 10-07-2024 Patrick Gallagher Work Phone: [facility] Start: 10-07-2024 ambulatory Patrick Navaslindsay [facility] Start: 10-05-2024 End: 10-08-2024 Refill Harish Paula MD Work Phone: Rheumatology Comment on above: Refill Request Start: 09-24-2024 End: 09-24-2024 ambulatory Julee De Los Santos Facility:[facility] Talita yoder Start: 09-23-2024 End: 09-23-2024 Doctor Corporate [facility] [place] Start: 09-23-2024 ambulatory Doctor Corporate [facility] Start: 09-13-2024 End: 09-13-2024 Encounter identifier Patrick Navaslindsay Work Phone: [facility] Start: 09-13-2024 End: 09-13-2024 Patrick Mathewweiki Work Phone: [facility] Start: 09-13-2024 ambulatory Patrick Gallagher [facility] Start: 09-03-2024 End: 09-03-2024 Lab Drop off Julee De Los Santos [facility] Start: 09-03-2024 End: 09-03-2024 ambulatory Julee De Los Santos Facility:[facility] Start: 08-26-2024 End: 08-26-2024 Encounter identifier Patrick Mathewweiki Work Phone: [facility] Start: 08-26-2024 End: 08-26-2024 Patrick Christopher Shweiki Work Phone: [facility] Start: 08-26-2024 ambulatory Patrick Christopher Pooja [facility] Start: 07-25-2024 End: 07-25-2024 Office outpatient visit 25 minutes Patrick Mathewweiki Work Phone: [facility] Start: 07-25-2024 ambulatory Patrick Gallagher [facility] Start: 06-26-2024 End: 06-26-2024 ambulatory HARISH PAULA Facility:[facility] Start: 06-26-2024 End: 06-26-2024 Office outpatient visit 25 minutes Harish Paula MD Work Phone: Rheumatology Comment on above: Rheumatoid arthritis involving multiple sites with positive rheumatoid factor (HCC) (Primary Dx); Encounter for long-term (current) use of medications Start: 06-19-2024 End: 06-19-2024 Encounter identifier Patrick Mathewweiki Work Phone: [facility] Start: 06-19-2024 End: 06-19-2024 Patrick Mathewweiki Work Phone: [facility] Start: 06-19-2024 ambulatory Patrick Gallagher [facility] Start: 05-29-2024 End: 05-29-2024 ambulatory MANOHAR MCDOWELL Facility:[facility] Start: 05-29-2024 End: 05-29-2024 Patient encounter procedure Manohar Mcdowell PA-C Work Phone: Otolaryngology Comment on above: PND (post-nasal drip ) (Primary Dx); Environmental and seasonal allergies; Hoarseness Start: 05-22-2024 End: 05-22-2024 Encounter identifier Patrick Mathewweiki Work Phone: [facility] Start: 05-22-2024 End: 05-22-2024 Patrick Al Shweiki Work Phone: [facility] Start: 05-22-2024 ambulatory Patrick Al Vincenzoweiki [facility] Start: 05-09-2024 End: 05-09-2024 ambulatory Julee De Los Santos Facility:[facility] Talita yoder Start: 04-24-2024 End: 04-24-2024 Encounter identifier Patrick Mathewweiki Work Phone: [facility] Start: 04-24-2024 End: 04-24-2024 Patrick Al Vincenzoweiki Work Phone: [facility] Start: 04-24-2024 ambulatory Patrickrogers Mathewweiki [facility] Start: 04-18-2024 End: 04-18-2024 ambulatory Julee De Los Santos Facility:[facility] Talita yoder Start: 03-27-2024 End: 03-27-2024 Office outpatient visit 25 minutes Patrick Al Shweiki Work Phone: [facility] Start: 03-27-2024 ambulatory Patrick Al Shweiki [facility] Start: 03-22-2024 End: 03-22-2024 Telephone encounter Yessy Oakes DPM Work Phone: [facility] Comment on above: Advice Only (Keeping Shoes - Cancel Check Appt) Start: 03-20-2024 End: 03-20-2024 ambulatory HARISH PAULA Facility:[facility] Start: 03-20-2024 End: 03-20-2024 Office outpatient visit 15 minutes Harish Paula MD Work Phone: Rheumatology Comment on above: Rheumatoid arthritis involving multiple sites with positive rheumatoid factor (HCC) (Primary Dx); Encounter for long-term (current) use of medications Start: 03-18-2024 End: 03-18-2024 ambulatory Julee De Los Santos Facility:[facility] Talita yoder Start: 03-12-2024 End: 03-12-2024 Bamboo flowsheet Yessy Oakes DPM Work Phone: [facility] Start: 03-12-2024 End: 03-12-2024 Bamboo flowsheet Yessy Oakes DPM Work Phone: [facility] Start: 03-12-2024 End: 03-12-2024 Patient encounter procedure Yessy Oakes DPM Work Phone: [facility] Comment on above: Onychomycosis (Prima ry Dx); Type II or unspecified type diabetes mellitus with neurological manifestations, not stated as uncontrolled(250.60) ([facility]); Hammer toes of both feet; Acquired keratoderma Start: 03-12-2024 End: 03-12-2024 ambulatory YESSY OAKES Not Available Start: 02-27-2024 End: 02-27-2024 ambulatory Julee De Los Santos Facility:[facility] Talita yoder Start: 02-20-2024 ambulatory Julee De Los Santos Facility :[facility] Start: 02-20-2024 End: 02-20-2024 Lab Drop off Julee De Los Santos [facility] Start: 02-20-2024 End: 02-20-2024 ambulatory Julee De Los Santos Facility:[facility] Talita yoder Start: 02-15-2024 End: 02-15-2024 ambulatory YESSY OAKES Not Available Start: 02-08-2024 End: 02-08-2024 Encounter identifier Lia Mcginnis Work Phone: [facility] Start: 02-08-2024 End: 02-08-2024November Tony Deckeredshantell Work Phone: [facility] Start: 02-07-2024 End: 02-07-2024 Patient encounter procedure Manohar Mcdowell PA-C Work Phone: Otolaryngology Comment on above: Change in voice (Tamar isaias Dx); Hoarseness; Environmental and seasonal allergies; PND (post-nasal drip) Start: 12-29-2023 End: 12-29-2023 ambulatory YESSY Justo OAKES Not Available Start: 12-21-2023 End: 12-21-2023 Encounter identifier November Tony Deckeredy Work Phone: [facility] Start: 12-21-2023 End: 12-21-2023November Tony Mcginnis Work Phone: [facility] Start: 12-19-2023 End: 12-19-2023 ambulatory Julee De Los Santos [facility] Start: 11-27-2023 End: 11-27-2023 ambulatory Julee De Los Santos [facility] Start: 11-21-2023 End: 11-21-2023 Encounter identifier November Tony Deckeredshantell Work Phone: [facility] Start: 11-21-2023 End: 11-21-2023November Tony Deckeredshantell Work Phone: [facility] Start: 11-20-2023 End: 11-20-2023 ambulatory Julee De Los Santos [facility] Start: 11-15-2023 End: 11-15-2023 Office outpatient visit 25 minutes Harish Paula MD Work Phone: Rheumatology Comment on above: Rheumatoid arthritis involving multiple sites with positive rheumatoid factor (HCC) (Primary Dx); Osteopenia of multiple sites; Encounter for long-term (current) use of medications; Change in voice; Toenail fungus Start: 11-01-2023 End: 11-01-2023 ambulatory Julee De Los Santos [facility] Start: 10-19-2023 End: 10-19-2023 Encounter identifier May El Rashedy Work Phone: [facility] Start: 10-19-2023 End: 10-19-2023 May El Rashedy Work Phone: [facility] Start: 10-09-2023 End: 10-09-2023 ambulatory Julee De Los Santos Facility:[facility] Talita yoder Start: 10-06-2023 Telephone encounter Harish ross MD Work Phone: Rheumatology Comment on above: Results Start: 09-15-2023 End: 09-15-2023 Lab Drop off Silvia Covington Faith [facility] Start: 08-31-2023 End: 08-31-2023 Encounter identifier May El Rashedy Work Phone: [facility] Start: 08-31-2023 End: 08-31-2023 May El Rashedy Work Phone: [facility] Start: 06-29-2023 End: 06-29-2023 Encounter identifier May El Rashedy Work Phone: [facility] Start: 06-29-2023 End: 06-29-2023 May El Rashedy Work Phone: [facility] Start: 05-11-2023 End: 05-11-2023 Encounter identifier May El Rashedy Work Phone: [facility] Start: 05-11-2023 End: 05-11-2023 May El Rashedy Work Phone: [facility] Start: 05-10-2023 ambulatory Mercedes baxter RT(R) Radiology Comment on above: Radiology XR Start: 05-10-2023 Patient encounter procedure Mercedes Peña RT(R) CCC[facility] PASTOR [facility] Start: 05-10-2023 End: 05-10-2023 Subsequent hospital visit by physician Xr [facility] Radiology Comment on above: Thoracic back pain, unspecified back pain laterality, unspecified chronicity [M54.6] Start: 05-10-2023 End: 05-10-2023 Office outpatient visit 25 minutes Harish Paula MD Work Phone: Rheumatology Comment on above: Rheumatoid arthritis involving multiple sites with positive rheumatoid factor (HCC) (Primary Dx); Encounter for long-term (current) use of medications; Thoracic back pain, unspecified back pain laterality, unspecified chronicity Start: 2023 End: 2023November El Rashedy Work Phone: [facility] Start: 03-30-2023 End: 03-30-2023 Encounter identifier November El Rashedy Work Phone: [facility] Start: 03-30-2023 End: 03-30-2023November El Rashedy Work Phone: [facility] Start: 03-02-2023 End: 03-02-2023 Encounter identifier November El Rashedy Work Phone: [facility] Start: 03-02-2023 End: 03-02-2023November El Rashedy Work Phone: [facility] Start: 02-08-2023 End: 02-08-2023 Office outpatient visit 25 minutes Harish Paula MD Work Phone: Rheumatology Comment on above: Rheumatoid arthritis involving multiple sites with positive rheumatoid factor (HCC) (Primary Dx); Encounter for long-term (current) use of medications Start: 01-26-2023 End: 01-26-2023 Office outpatient visit 25 minutes May El Rashedy Work Phone: [facility] Start: 01-09-2023 End: 01-09-2023 Lab Drop off Julee De Los Santos [facility] Start: 11-09-2022 End: 11-09-2022 Subsequent hospital visit by physician Byron Ortiz Work Phone: Radiology Comment on above: Rheumatoid arthritis involving multiple sites with positive rheumatoid factor (HCC) [M05.79] Start: 11-09-2022 ambulatory Mercedes Hendricks n RT(R) Radiology Comment on above: Radiology XR Start: 11-09-2022 Patient encounter procedure Mercedes Peña RT(R) [facility] Start: 11-09-2022 End: 11-09-2022 Office outpatient new 60 minutes Harish Paula MD Work Phone: Rheumatology Comment on above: Rheumatoid arthritis involving multiple sites with positive rheumatoid factor (HCC) (Primary Dx) Start: 09-28-2022 End: 09-29-[address] ALEKSANDER JIMENEZ . Facility: Start: 09-13-2022 End: 09-14-[address] ALEKSANDER JIMENEZ . Facility: Start: 07-07-2022 End: 07-07-2022 Admission to same day surgery center MD Aleksander Jimenez Work Phone: [facility] [place] Start: 07-07-2022 End: 07-07-2022 ambulatory MD Aleksander Jimenez Work Phone: [facility] Work Phone: Start: 07-05-2022 End: 07-06-[address] ALEKSANDER JIMENEZ . Facility: Start: 06-24-2022 End: 06-24-2022 ambulatory MD Aleksander Jimenez Work Phone: [facility] Work Phone: Start: 06-24-2022 End: 06-24-2022 Departed Referred MD Aleksander Jimenez Work Phone: [facility] Start: 06-24-2022 End: 06-24-2022 Patient encounter procedure MD Aleksander Jimenez Work Phone: [facility] Start: 06-06-2022 End: 06-06-2022 Encounter identifier Tuan Moreno Work Phone: [facility] Start: 06-06-2022 End: 06-06-2022 Tuan Moreno Work Phone: [facility] Start: 02-16-2022 End: 02-17-[address] DOCTOR BECKETT Facility:[facility] Start: 12-28-2021 End: 12-29-[address] ALEKSANDER JIMENEZ . Facility:[facility] Start: 11-06-2021 End: 11-06-[address] MADISON RIVAS Facility:[facility] Start: 11-02-2021 End: 11-02-[address] MADISON RIVAS Facility:[facility] Start: 03-03-2020 End: 03-03-2020 Encounter identifier Tuan Moreno Work Phone: [facility] Start: 03-03-2020 End: 03-03-2020 Tuan Pereyrabs Work Phone: [facility] Start: 01-30-2019 End: 01-30-2019 Encounter identifier Tuan Pereyrabs Work Phone: [facility] Start: 01-30-2019 End: 01-30-2019 Tuan Pereyrabs Work Phone: [facility] Start: 01-31-2018 End: 01-31-2018 Encounter identifier Tuan Pereyrabs Work Phone: [facility] Start: 01-31-2018 End: 01-31-2018 Tuan Leandra Pereyrabs Work Phone: [facility] Start: 01-25-2017 End: 01-25-2017 Encounter identifier Tuan Pereyrabs Work Phone: [facility] Start: 01-25-2017 End: 01-25-2017 Tuan Mobley Tiffanie Work Phone: [facility] Start: 02-10-2016 End: 02-10-2016 Encounter identifier Tuan Mobley Tiffanie Work Phone: [facility] Start: 02-10-2016 End: 02-10-2016 Tuan Leandra Tiffanie Work Phone: [facility] Start: 01-07-2015 End: 01-07-2015 Encounter identifier Tuan Moreno Work Phone: [facility] Start: 01-07-2015 End: 01-07-2015 Tuan Moreno Work Phone: [facility] Start: 01-08-2014 End: 01-08-2014 Office outpatient visit 25 minutes Tuan Moreno Work Phone: [facility] Start: 07-10-2013 End: 07-10-2013 Office outpatient visit 25 minutes Tuan Moreno Work Phone: [facility] Procedures Date Procedure Procedure Detail Performing Clinician Start: 03-17-2025 Computerized ophthal kwabena imaging retina Patrick Gallagher Start: 03-17-2025 Intravitreal njx pha rmacologic agt spx Patrick Gallagher Start: 03-17-2025 Vabysmo Prefilled Syringe Patrick Gallagher Start: 02-06-2025 End: 02-06-2025 Computerized ophthalmic imaging retina David Coulter MD, PhD Start: 02-06-2025 Fundus Photos No Charge Patrick Gallagher Start: 02-06-2025 End: 02-06-2025 Fundus Photos No Charge Bilateral David Coulter MD, PhD Start: 02-06-2025 End: 02-06-2025 Intravitreal njx pharmacologic agt spx David Coulter MD, PhD Start: 02-06-2025 End: 02-06-2025 Vabysmo Prefilled Syringe David richardson MD, PhD Start: 02-06-2025 Vabysmo Prefilled Syringe Patrick Gallagher Start: 12-30-2024 End: 12-30-2024 Computerized ophthalmic imaging retina Patrick Gallagher MD Start: 12-30-2024 End: 12-30-2024 Intravitreal njx pharmacologic agt spx Patrick Gallagher MD Start: 12-30-2024 End: 12-30-2024 Vabysmo Prefilled Syringe Patrick Aldana MD Start: 12-30-2024 Vabysmo Prefilled Syringe Patrick Gallagher Start: 11-18-2024 End: 11-18-2024 Intravitreal njx pharmacologic agt spx Patrick Ashwin Patton MD Start: 11-18-2024 End: 11-18-2024 Vabysmo Prefilled Syringe Patrickrogers Aldana MD Start: 11-18-2024 Vabysmo Prefilled Syringe Patrick Ashwin Patton Start: 10-07-2024 End: 10-07-2024 Computerized ophthalmic imaging retina Patrick Ashwin Patton MD Start: 10-07-2024 End: 10-07-2024 Intravitreal njx pharmacologic agt spx Patrick Ashwin Patton MD Start: 10-07-2024 End: 10-07-2024 Vabysmo Prefilled Syringe Patrickrogers Aldana MD Start: 10-07-2024 Vabysmo Prefilled Syringe Patrick Gallagher Start: 08-26-2024 End: 08-26-2024 Intravitreal njx pharmacologic agt spx Patrick Ashwin Patton MD Start: 08-26-2024 End: 08-26-2024 Vabysmo Prefilled Syringe Patrick Aldana MD Start: 08-26-2024 Vabysmo Prefilled Syringe Patrick Gallagher Start: 07-25-2024 End: 07-25-2024 Computerized ophthalmic imaging retina Patrick Gallagher MD Start: 06-19-2024 End: 06-19-2024 Intravitreal njx pharmacologic agt spx Patrick Gallagher MD Start: 06-19-2024 End: 06-19-2024 Vabysmo Prefilled Syringe Patrick Aldana MD Start: 06-19-2024 Vabysmo Prefilled Syringe Patrick Gallagher Start: 05-22-2024 End: 05-22-2024 Intravitreal njx pharmacologic agt spx Patrick Gallagher MD Start: 05-22-2024 End: 05-22-2024 Vabysmo Prefilled Syringe Patrickrogers Aldana MD Start: 05-22-2024 Vabysmo Prefilled Syringe Patrick Ashwin Patton Start: 04-24-2024 End: 04-24-2024 Intravitreal njx pharmacologic agt spx Patrick Ashwin Patton MD Start: 04-24-2024 End: 04-24-2024 Vabysmo Prefilled Syringe Patrick Aldana MD Start: 04-24-2024 Vabysmo Prefilled Syringe Patrick Gallagher Start: 03-27-2024 End: 03-27-2024 Computerized ophthalmic imaging retina Patrick Gallagher MD Start: 03-27-2024 End: 03-27-2024 Eylea 1mg Pre-filled Syringe Patrick Babb MD Start: 03-27-2024 Eylea 1mg Pre-filled Syringe Patrick Gallagher Start: 03-27-2024 End: 03-27-2024 Intravitreal njx pharmacologic agt spx Patrick Gallagher MD Start: 02-08-2024 End: 02-08-2024 Computerized ophthalmic imaging retina Patrick Gallagher MD Start: 02-08-2024 End: 02-08-2024 Eylea 1mg Pre-filled Syringe Patrick Babb MD Start: 02-08-2024 End: 02-08-2024 Intravitreal njx pharmacologic agt spx Patrick Gallagher MD Start: 12-21-2023 End: 12-21-2023 Computerized ophthalmic imaging retina Patrick Gallagher MD Start: 12-21-2023 End: 12-21-2023 Eylea Sample Drug Patrick Gallagher MD Start: 12-21-2023 End: 12-21-2023 Intravitreal njx pharmacologic agt spx Patrick Gallagher MD Start: 11-21-2023 End: 11-21-2023 Computerized ophthalmic imaging retina Patrick Gallagher MD Start: 11-21-2023 End: 11-21-2023 Eylea 1mg Pre-filled Syringe Patrick Babb MD Start: 11-21-2023 End: 11-21-2023 Intravitreal njx pharmacologic agt spx Patrick Gallagher MD Start: 10-19-2023 End: 10-19-2023 Computerized ophthalmic imaging retina Patrick Gallagher MD Start: 10-19-2023 End: 10-19-2023 Eylea Sample Drug Patrick Gallagher MD Start: 10-19-2023 End: 10-19-2023 Intravitreal njx pharmacologic agt spx Patrick Gallagher MD Start: 08-31-2023 End: 08-31-2023 Bevacizumab injection Patrick Gallagher MD Start: 08-31-2023 End: 08-31-2023 Computerized ophthalmic imaging retina Patrick Gallagher MD Start: 08-31-2023 End: 08-31-2023 Intravitreal njx pharmacologic agt spx Patrick Gallagher MD Start: 06-29-2023 End: 06-29-2023 Bevacizumab injection Patrick Gallagher MD Start: 06-29-2023 End: 06-29-2023 Computerized ophthalmic imaging retina Patrick Gallagher MD Start: 06-29-2023 End: 06-29-2023 Intravitreal njx pharmacologic agt spx Patrick Gallagher MD Start: 05-11-2023 End: 05-11-2023 Bevacizumab injection Patrick Gallagher MD Start: 05-11-2023 End: 05-11-2023 Computerized ophthalmic imaging retina Patrick Gallagher MD Start: 05-11-2023 End: 05-11-2023 Intravitreal njx pharmacologic agt spx Patrick Gallagher MD Start: 05-10-2023 Radex spine thoracic 3 views Harish Paula MD Work Phone: Start: 03-30-2023 End: 03-30-2023 Bevacizumab injection Patrick Gallagher MD Start: 03-30-2023 End: 03-30-2023 Computerized ophthalmic imaging retina Patrick Gallagher MD Start: 03-30-2023 End: 03-30-2023 Intravitreal njx pharmacologic agt spx Patrick Gallagher MD Start: 03-02-2023 End: 03-02-2023 Bevacizumab injection Patrick Gallagher MD Start: 03-02-2023 End: 03-02-2023 Computerized ophthalmic imaging retina Patrick Gallagher MD Start: 03-02-2023 End: 03-02-2023 Intravitreal njx pharmacologic agt spx Patrick Gallagher MD Start: 01-26-2023 End: 01-26-2023 Bevacizumab injection Patrick Gallagher MD Start: 01-26-2023 End: 01-26-2023 Computerized ophthalmic imaging retina Patrick Gallagher MD Start: 01-26-2023 End: 01-26-2023 Intravitreal njx pharmacologic agt spx Patrick Gallagher MD Start: 11-09-2022 Radex foot complete minimum 3 views Harish Paula MD Work Phone: Start: 07-07-2022 Phacoemulsification of cataract with intraocular lens implantation MD Aleksander Jimenez Work Phone: Start: 06-06-2022 End: 06-06-2022 Computerized ophthalmic imaging retina Patrick Gallagher MD Start: 06-06-2022 End: 06-06-2022 Fundus Photos No Charge Bilateral Patrick Gallagher MD Start: 03-03-2020 End: 03-03-2020 Computerized ophthalmic imaging retina Patrick Gallagher MD Start: 01-30-2019 End: 01-30-2019 Computerized ophthalmic imaging retina Patrick Gallagher MD Start: 01-31-2018 End: 01-31-2018 Computerized ophthalmic imaging retina Patrick Gallagher MD Start: 01-25-2017 End: 01-25-2017 Computerized ophthalmic imaging retina Patrick Gallagher MD Start: 02-10-2016 End: 02-10-2016 Computerized ophthalmic imaging retina Patrick Gallagher MD Start: 01-07-2015 End: 01-07-2015 Computerized ophthalmic imaging retina Patrick Gallagher MD Start: 01-08-2014 End: 01-08-2014 Computerized ophthalmic imaging retina Patrick Gallagher MD Start: 07-10-2013 End: 07-10-2013 Fluorescein angrph w/multiframe i&r uni/bi Patrick Gallagher MD Start: 07-27-2010 Lipid 1996 panel - S stephan or Plasma Harish Paula MD Work Phone: Bilateral cataracts (disorder) Julee [...] Treatment Date Care Activity Detail Author Start: 10-17-2027 Diabetes Screening Diabetes Screening [facility] Start: 06-26-2027 Diabetes Screening Diabetes Screening [facility] Start: 03-20-2027 Diabetes Screening Diabetes Screening [facility] Start: 11-14-2026 Diabetes Screening Diabetes Screening [facility] Start: 05-10-2026 Diabetes Screening Diabetes Screening [facility] Start: 11-09-2025 DIABETES SCREEN DIABETES SCREEN [facility] Start: 11-09-2025 Diabetes Screening Diabetes Screening [facility] Start: 09-25-2025 ambulatory Ambulatory Facility:[facility] Start: 06-25-2025 End: 06-25-2025 Patient encounter procedure 06/25/2025 1:00 PM EST Office Visit Rheumatology [address] [place] [address] Harish Paula MD [address] [place] [address] Return in about 4 months (around 06/22/2025). Rheumatology Comment on above: Return in about 4 months (around 025). Start: 05-20-2025 ambulatory Ambulatory Facility:[facility] Start: 03-24-2025 Influenza vaccination Influenza Vaccine (#1) [facility] Start: 03-17-2025 Yamile Siddiqui 6-7 Weeks(7) IO VAB OS(3-3) NO OCT, NO Di [facility] Work Phone: Start: 02-19-2025 End: 05-21-2025 Alanine aminotransferase [Enzymatic activity/volume] in Serum or Plasma [facility] Comment on above: Expected: 02/19/2025, Expires: Start: 02-19-2025 End: 05-21-2025 Albumin [Mass/volume] in Serum or Plasma [facility] Comment on above: Expected: 02/19/2025, Expires: Start: 02-19-2025 End: 05-21-2025 Aspartate aminotransferase [Enzymatic activity/volume] in Serum or Plasma [facility] Comment on above: Expected: 02/19/2025, Expires: Start: 02-19-2025 End: 05-21-2025 Creatinine and Glomerular filtration rate.predicted panel - Serum, Plasma or Blood [facility] Work Phone: Comment on above: Expected: 02/19/2025, Expires: Start: 02-19-2025 End: 02-19-2025 Patient encounter procedure 02/19/2025 1:20 PM EDT Office Visit Rheumatology [address] [place] [address] Harish Paula MD [address] [place], [place] [id number] Return in about 3 months (around 01/16/2025). Rheumatology Comment on above: Return in about 3 months (around 01/17/20). Start: 02-17-2025 Yamile Siddiqui / 7 Wk Io Vab Os (2of3) Oct [facility] Work Phone: Start: 02-13-2025 Bacteria identified in Urine by Culture Urine Culture [facility] Start: 02-13-2025 Urine culture [facility] Start: 12-30-2024 Yamile Siddiqui 6 Weeks DFE/ Poss VAB OS/ OCT [facility] Work Phone: Start: 12-07-2024 Covid-19 Vaccine (9 - Moderna risk season) Covid-19 Vaccine (9 - Moderna risk season) [facility] Start: 11-18-2024 Yamile Siddiqui / 6 Wks IO Vab Os (3of3) No Oct [facility] Work Phone: Start: 11-18-2024 Counseling about tobacco use Tobacco cessation counseling [facility] Start: 10-16-2024 End: 01-15-2025 CBC W Auto Differential panel - Blood [facility] Comment on above: Expected: 10/16/2024, Expires: Start: 10-16-2024 End: 01-15-2025 Comprehensive metabolic 2000 panel - Serum or Plasma [facility] Work Phone: Comment on above: Expected: 10/16/2024, Expires: Start: 10-16-2024 End: 10-16-2024 Patient encounter procedure 10/16/2024 1:20 PM EDT Office Visit Rheumatology [address] [place] [address] Harish Paula MD [address] [place] [address] Return in about 3 months (around 09/24/2024). Rheumatology Comment on above: Return in about 3 months (around ). Start: 10-07-2024 Siddiqui, Yamile / 6 Wks IO Oct Vab Os (2of3) [facility] Work Phone: Start: 10-07-2024 Counseling about tobacco use Tobacco cessation counseling [facility] Start: 09-23-2024 Siddiqui, Yamile / 4 Wks IO Avn Od (2of3) No Oct [facility] Work Phone: Start: 08-21-2024 Siddiqui, Yamile 4 Week IO 8 Week Interval VAB OS(2-3) OC [facility] Work Phone: Start: 08-04-2024 Covid-19 Vaccine ( season) Covid-19 Vaccine ( season) [facility] Start: 07-24-2024 Advance Directive Discussion Advance Directive Discussion [facility] Start: 07-24-2024 Medicare Advantage Annual Wellness Visit Medicare Advantage Annual Wellness Visit [facility] Start: 07-02-2024 End: 07-02-2024 Patient encounter procedure 07/02/2024 1:45 PM EST Office Visit [facility] [address] [place] [phone] Yessy Oakes, DPM [address] [place] [address] [facility] Start: 06-26-2024 End: 09-25-2024 HANK BY IFA SCREEN [facility] Comment on above: Expected: 06/26/2024, Expires: Start: 06-26-2024 End: 09-25-2024 C reactive protein [Mass/volume] in Serum or Plasma [facility] Comment on above: Expected: 06/26/2024, Expires: Start: 06-26-2024 End: 09-25-2024 Comprehensive metabolic 2000 panel - Serum or Plasma [facility] Work Phone: Comment on above: Expected: 06/26/2024, Expires: Start: 06-26-2024 End: 09-25-2024 DNA double strand Ab [Units/volume] in Serum by Immunoassay [facility] Comment on above: Expected: 06/26/2024, Expires: Start: 06-26-2024 End: 09-25-2024 Extractable nuclear Ab panel - Serum [facility] Comment on above: Expected: 06/26/2024, Expires: Start: 06-26-2024 End: 06-26-2024 Patient encounter procedure 06/26/2024 1:00 PM EST Office Visit Rheumatology [address] [place] [address] Harish Paula MD [address] [place] [address] Return in about 3 months (around 06/20/2024). Rheumatology Comment on above: Return in about 3 months (around 024). Start: 05-29-2024 End: 05-29-2024 Patient encounter procedure 05/29/2024 1:00 PM EST Office Visit Otolaryngology [address] [place] [address] Manohar Mcdowell PA-C [address] [place] [address] Return in about 8 weeks (around 04/03/2024). Otolaryngology Comment on above: Return in about 8 weeks (around ). Start: 04-02-2024 End: 04-02-2024 Patient encounter procedure 04/02/2024 11:00 AM EDT Office Visit [facility] [address] [place] [phone] Yessy Oakes DPM [address] [place], [place] [phone] [facility] Start: 03-24-2024 Covid-19 Vaccine () Covid-19 Vaccine () [facility] Start: 03-24-2024 Influenza vaccination Influenza Vaccine (#1) [facility] Start: 03-20-2024 End: 03-20-2024 Patient encounter procedure 03/20/2024 12:00 PM EDT Office Visit Rheumatology [address] [place] [address] Harish Paula MD [address] [place] [address] Return in about 4 months (around 03/16/2024). Rheumatology Comment on above: Return in about 4 months (around 03/16/20). Start: 03-12-2024 End: 03-12-2024 Patient encounter procedure 03/12/2024 11:15 AM EDT Office Visit [facility] [address] [place] [phone] Yessy Oakes DPM [address] [place] [address] [facility] Comment on above: Arrived Start: 02-08-2024 Smoking cessation education Tobacco cessation counseling [facility] Start: 01-24-2024 End: 01-24-2024 Patient encounter procedure 01/24/2024 1:25 PM EDT Office Visit Otolaryngology [address] [place] [address] Manohar Mcdowell PA-C [address] [place] [id number] Change in voice [R49.9] Otolaryngology Comment on above: Change in voice [R49.9] Start: 01-10-2024 End: 01-10-2024 Patient encounter procedure 01/10/2024 1:00 PM EDT Office Visit [facility] [place] [address] [place] [address] Vivian Patel, CUSTOMER SALES ADVISOR.HORSE EXERCISER [address] [place] [address] est care [facility] Comment on above: est care Start: 01-04-2024 End: 01-04-2024 Patient encounter procedure 01/04/2024 2:20 PM EDT Office Visit Orthopaedics [address] [place] [address] Sarah Marley, DPCruz [address] [address] Toenail fungus [B35.1] Orthopaedics Comment on above: Toenail fungus [B35.1] Start: 12-21-2023 Smoking cessation education Tobacco cessation counseling [facility] Start: 11-15-2023 End: 02-14-2024 25-hydroxyvitamin D3 [Mass/volume] in Serum or Plasma [facility] Comment on above: Expected: 11/15/2023, Expires: Start: 11-15-2023 End: 02-14-2024 Comprehensive metabolic 2000 panel - Serum or Plasma [facility] Work Phone: Comment on above: Expected: 11/15/2023, Expires: Start: 11-15-2023 End: 02-14-2024 Parathyrin.intact [Mass/volume] in Serum or Plasma [facility] Comment on above: Expected: 11/15/2023, Expires: Start: 11-15-2023 End: 02-14-2024 Phosphate [Mass/volume] in Serum or Plasma [facility] Comment on above: Expected: 11/15/2023, Expires: Start: 11-15-2023 End: 02-14-2024 PROTEIN ELECTROPHORESIS SERUM W/INTERP [facility] Comment on above: Expected: 11/15/2023, Expires: Start: 11-15-2023 End: 02-14-2024 Thyrotropin [Units/volume] in Serum or Plasma [facility] Comment on above: Expected: 11/15/2023, Expires: Start: 10-19-2023 Referral to tobacco use cessation clinic Tobacco cessation counseling [facility] Start: 08-31-2023 Smoking cessation education Tobacco cessation counseling [facility] Start: 08-29-2023 Covid-19 Vaccine () Covid-19 Vaccine () [facility] Start: 07-24-2023 Advance Directive Discussion Advance Directive Discussion [facility] Start: 07-24-2023 Behavioral Health Screening Behavioral Health Screening [facility] Start: 07-24-2023 Depression Assessment Depression Assessment [facility] Start: 03-24-2023 Covid-19 Vaccine () Covid-19 Vaccine () [facility] Start: 03-24-2023 Influenza vaccination [facility] Start: 02-08-2023 End: 04-10-2023 Alanine aminotransferase [Enzymatic activity/volume] in Serum or Plasma [facility] Work Phone: Comment on above: Expected: 02/08/2023, Expires: 3 Start: 02-08-2023 End: 04-10-2023 Albumin [Mass/volume] in Serum or Plasma [facility] Work Phone: Comment on above: Expected: 02/08/2023, Expires: 3 Start: 02-08-2023 End: 04-10-2023 Aspartate aminotransferase [Enzymatic activity/volume] in Serum or Plasma [facility] Work Phone: Comment on above: Expected: 02/08/2023, Expires: 3 Start: 02-08-2023 End: 04-10-2023 CREATININE BLD [facility] Work Phone: Comment on above: Expected: 02/08/2023, Expires: 3 Start: 01-26-2023 Smoking cessation education Tobacco cessation counseling [facility] Start: 11-09-2022 End: 01-09-2023 25-hydroxyvitamin D3 [Mass/volume] in Serum or Plasma [facility] Work Phone: Comment on above: Expected: 11/09/2022, Expires: 3 Start: 11-09-2022 End: 01-09-2023 BLOOD TB SCREEN [facility] Work Phone: Comment on above: Expected: 11/09/2022, Expires: 3 Start: 11-09-2022 End: 01-09-2023 C reactive protein [Mass/volume] in Serum or Plasma [facility] Work Phone: Comment on above: Expected: 11/09/2022, Expires: 3 Start: 11-09-2022 End: 01-09-2023 Comprehensive metabolic 2000 panel - Serum or Plasma [facility] Work Phone: Comment on above: Expected: 11/09/2022, Expires: 3 Start: 11-09-2022 End: 01-09-2023 Cyclic citrullinated peptide IgG Ab [Units/volume] in Serum or Plasma [facility] Work Phone: Comment on above: Expected: 11/09/2022, Expires: 3 Start: 11-09-2022 End: 01-09-2023 Hepatitis B virus core Ab [Presence] in Serum [facility] Work Phone: Comment on above: Expected: 11/09/2022, Expires: 3 Start: 11-09-2022 End: 01-09-2023 Hepatitis B virus surface Ab [Presence] in Serum [facility] Work Phone: Comment on above: Expected: 11/09/2022, Expires: 3 Start: 11-09-2022 End: 01-09-2023 Hepatitis B virus surface Ag [Presence] in Serum [facility] Work Phone: Comment on above: Expected: 11/09/2022, Expires: 3 Start: 11-09-2022 End: 01-09-2023 Hepatitis C virus Ab [Presence] in Serum [facility] Work Phone: Comment on above: Expected: 11/09/2022, Expires: 3 Start: 11-09-2022 End: 01-09-2023 Rheumatoid factor [Units/volume] in Serum or Plasma [facility] Work Phone: Comment on above: Expected: 11/09/2022, Expires: 3 Start: 07-24-2022 ADVANCE DIRECTIVE DISCUSSION ADVANCE DIRECTIVE DISCUSSION [facility] Start: 07-24-2022 DEPRESSION ASSESSMENT DEPRESSION ASSESSMENT [facility] Start: 07-07-2022 End: 07-07-2022 [facility] Start: 2022 BONE DENSITY BONE DENSITY [facility] Start: 2022 Bone Density Screening Bone Density Screening [facility] Start: 2022 Pneumococcal Vaccine: 65+ Years (2 of 2 - PCV) Pneumococcal Vaccine: 65+ Years (2 of 2 - PCV) [facility] Start: 2022 Screening for osteoporosis Bone Density Screening [facility] Start: 05-10-2021 DIABETES SCREEN DIABETES SCREEN [facility] Start: 03-03-2020 Patient Education Health Information for You: [employer]~ [facility] Work Phone: Start: 03-03-2020 Smoking cessation education Tobacco cessation counseling [facility] Start: 2017 RSV Vaccine (1 - 1-dose 60+ series) RSV Vaccine (1 - 1-dose 60+ series) [facility] Start: 2017 RSV Vaccine (1 - Risk 60-74 years 1-dose series) RSV Vaccine (1 - Risk 60-74 years 1-dose series) [facility] Start: 01-25-2017 Smoking cessation education Tobacco cessation counseling [facility] Start: 04-24-2016 Pneumococcal Vaccine: 50+ (2 of 2 - PCV) Pneumococcal Vaccine: 50+ (2 of 2 - PCV) [facility] Start: 04-24-2016 Pneumococcal Vaccine: 65+ (2 - PCV) Pneumococcal Vaccine: 65+ (2 - PCV) [facility] Start: 04-24-2016 Pneumococcal Vaccine: 65+ (2 of 2 - PCV) Pneumococcal Vaccine: 65+ (2 of 2 - PCV) [facility] Start: 07-27-2015 Lipid 1996 panel - Serum or Plasma Lipid Screening [facility] Start: 07-27-2015 Lipid panel Lipid Screening [facility] Start: 07-27-2015 LIPID SCREEN LIPID SCREEN [facility] Start: 01-07-2015 Smoking cessation education Tobacco cessation counseling [facility] Start: 2007 Influenza vaccination LUNG CANCER SCREENING [facility] Start: 2007 Screening for malignant neoplasm of lung Lung Cancer Screening [facility] Start: 2002 COLOGUARD (FIT-DNA) COLOGUARD (FIT-DNA) [facility] Start: 2002 Colonoscopy COLONOSCOPY [facility] Start: 2002 COLORECTAL CANCER SCREENING COLORECTAL CANCER SCREENING [facility] Start: [address] COLONOGRAPHY [facility] Start: 2002 FECAL OCCULT BLOOD FECAL OCCULT BLOOD [facility] Start: 2002 Screening for malignant neoplasm of colon [facility] Start: 2002 SIGMOIDOSCOPY SIGMOIDOSCOPY [facility] Start: 1997 Mammography [facility] Start: 1997 Screening for malignant neoplasm of breast [facility] Start: 1976 SHINGRIX VACCINE (1 of 2) SHINGRIX VACCINE (1 of 2) [facility] Start: 1976 Urine microalbumin profile [facility] Start: 1975 Anxiety Screening Anxiety Screening [facility] Start: 1975 Depression Screening Depression Screening [facility] Start: 1975 HIV SCREENING HIV SCREENING [facility] Start: 1968 Screening for malignant neoplasm of cervix Cervical Cancer Screening [facility] Start: 1963 PNEUMOCOCCAL: 65+ (1 - PCV) PNEUMOCOCCAL: 65+ (1 - PCV) [facility] Start: 1957 Screening for malignant neoplasm of colon [facility] End: 12-10-2023 XR FOOT GENERAL 3V AP/LAT/OBL BILATERAL XR FOOT GENERAL 3V AP/LAT/OBL BILATERAL Radiology Routine Rheumatoid arthritis involving multiple sites with positive rheumatoid factor (HCC) 1 Occurrences starting 11/09/2022 until 12/10/2023 [facility] Work Phone: Comment on above: 1 Occurrences starting 11/09/2022 until 12/10/2023 XR FOOT GENERAL 3V AP/LAT/OBL BILATERAL XR FOOT GENERAL 3V AP/LAT/OBL BILATERAL Radiology Routine Rheumatoid arthritis involving multiple sites with positive rheumatoid factor (HCC) 11/09/2022 3:01 PM EDT [facility] Work Phone: End: 12-10-2023 XR HAND GENERAL 3V PA/LAT/OBL BILATERAL XR HAND GENERAL 3V PA/LAT/OBL BILATERAL Radiology Routine Rheumatoid arthritis involving multiple sites with positive rheumatoid factor (HCC) 1 Occurrences starting 11/09/2022 until 12/10/2023 [facility] Work Phone: Comment on above: 1 Occurrences starting 11/09/2022 until 12/10/2023 XR HAND GENERAL 3V PA/LAT/OBL BILATERAL XR HAND GENERAL 3V PA/LAT/OBL BILATERAL Radiology Routine Rheumatoid arthritis involving multiple sites with positive rheumatoid factor (HCC) 11/09/2022 3:01 PM EDT [facility] Work Phone: [facility] Immunizations Immunization Date Immunization Notes Care Provider [facility] 05-09-2024 influenza, high dose seasonal, preservative-free; Translations: [Fluzone High Dose Vaccine] Julee De Los Santos [facility] 05-09-2024 influenza virus vaccine, unspecified formulation aHrish Paula MD Work Phone: [facility] 07-04-2023 influenza virus vaccine, unspecified formulation Silvia Cuevas [facility] 08-10-2022 SARS-CoV-2 (COVID-19 ) [id number] Julee De Los Santos [facility] 05-13-2022 influenza virus vaccine, unspecified formulation Julee De Los Santos [facility] 12-15-2021 SARS-CoV-2 (COVID-19 ) mRNA-1273 vaccine Julee De Los Santos [facility] Comment on above: Result Comment: 2022: [id number] 08-13-2021 zoster vaccine recombinant Julee De Los Santos [facility] 05-20-2021 SARS-CoV-2 (COVID-19 ) mRNA-1273 vaccine Julee De Los Santos [facility] Comment on above: Result Comment: 2022: [id number] 04-30-2021 zoster vaccine recombinant Julee De Los Santos [facility] 04-28-2021 influenza virus vaccine, unspecified formulation Julee De Los Santos [facility] 11-11-2020 SARS-CoV-2 (COVID-19 ) mRNA-1273 vaccine Julee De Los Santos [facility] 10-29-2020 SARS-CoV-2 (COVID-19 ) mRNA-1273 vaccine Julee De Los Santos [facility] Comment on above: Result Comment: 2022: [id number] 10-01-2020 SARS-CoV-2 (COVID-19 ) mRNA-1273 vaccine Julee De Los Santos [facility] Comment on above: Result Comment: 2022: [id number] 06-06-2017 influenza virus vaccine, unspecified formulation Julee De Los Santos [facility] 04-23-2016 influenza, seasonal, injectable Patrick Ashwin Patton MD [facility] Comment on above: Note: Invalid docume nted admin date was . ; Source: Other Provider 04-24-2015 influenza virus vaccine, unspecified formulation Julee De Los Santos [facility] 04-24-2015 pneumococcal polysaccharide vaccine, 23 valent Julee De Los Santos [facility] NEGATED: Highlighted row has not occurred!04-10-2023 influenza virus vaccine, unspecified formulation Silvia Cuevas [facility] Payers Date Payer Category Payer Self-pay [id number] 2023 Medicare [id number] 2022 Medicare [id number] 2022 Medicare (Managed Care) [employer] [facility] SNP [id number] 2017 Medicaid [id number] 1959 Medicaid [id number] 1959 Medicare [id number] 1959 Medicare [id number] 1957 Unknown [id number] 2.16.840.1.376305.3.579.2. 593 1957 Unknown [id number] 2.16.840.1.435859.3.579.2. 593 1957 Unknown [id number] 2.16.840.1.636164.3.579.2. 593 1957 Unknown [id number] 2.16.840.1.964011.3.579.2. 593 1957 Unknown [id number] 2.16.840.1.740350.3.579.2. 593 1957 Unknown [id number] 2.16.840.1.968525.3.579.2. 593 1957 Unknown [id number] 2.16.840.1.357300.3.579.2. 593 1957 Unknown [id number] 2.16.840.1.849220.3.579.2. 1259 1957 Unknown [id number] 2.16.840.1.584105.3.579.2. 1259 1957 Unknown [id number] 2.16.840.1.457928.3.579.2. 1259 1957 Unknown [id number] 2.16.840.1.429487.3.579.2. 727 1957 Unknown [id number] 2.16.840.1.180122.3.579.2. 727 1957 Unknown [id number] 2.16.840.1.926440.3.579.2. 727 1957 Unknown [id number] 2.16.840.1.438133.3.579.2. 727 1957 Unknown [id number] 2.16.840.1.507708.3.579.2. 727 1957 Unknown [id number] 2.16.840.1.334015.3.579.2. 1957 Unknown [id number] 2.16.840.1.222171.3.579.2. 1957 Unknown [id number] 2.16.840.1.945004.3.579.2 1957 Unknown [id number] 2.16.840.1.087797.3.579.2. 1957 Unknown [id number] 2.16.840.1.476915.3.579.2 1957 Unknown [id number] 2.16.840.1.349853.3.579.2 1957 Unknown [id number] 2.16.840.1.124701.3.579.2 1957 Unknown [id number] 2.16.840.1.374585.3.579.2 1957 Unknown [id number] 2.16.840.1.315380.3.579.2 1957 Unknown [id number] 2.16.840.1.596490.3.579.2 1957 Unknown [id number] 2.16.840.1.564458.3.579.2 1957 Unknown [id number] 2.16.840.1.420480.3.579.2 1957 Unknown [id number] 2.16.840.1.208614.3.579.2 1957 Unknown [id number] 2.16.840.1.150525.3.579.2 1957 Unknown [id number] 2.16.840.1.635401.3.579.2 1957 Unknown [id number] 2.16.840.1.359675.3.579.2. 727 1957 Unknown [id number] 2.16.840.1.674413.3.579.2. 1346 1957 Unknown [id number] 2.16.840.1.273628.3.579.2. 1346 1957 Unknown [id number] 2.16.840.1.844920.3.579.2. 1346 1957 Unknown [id number] 2.16.840.1.447699.3.579.2. 1346 1955 Unknown [id number]. 1346 1955 Unknown [id number] [id number]. 1346 1955 Unknown [id number] 2.16.840.1.950213.3.579.2. 1346 1955 Unknown [id number] 2.16.840.1.658573.3.579.2. 1346 1955 Unknown [id number] 2.16.840.1.759063.3.579.2. 1346 1955 Unknown [id number] 2.16.840.1.335258.3.579.2. 1346 1955 Unknown [id number] 2.16.840.1.769701.3.579.2. 1346 1955 Unknown [id number] 2.16.840.1.973329.3.579.2. 1346 1957 Unknown [id number] 2.16.840.1.163359.3.579.2. 1346 1955 Unknown [id number] [id number]. 134 Medicaid [id number] Unknown [id number]. 531 Social History Date Type Detail Facility Start: 06-24-2022 End: 06-26-2024 Tobacco smoking status NHIS Ex-smoker (finding) [facility] Comment on above: denies use Start: 1955 Sex Assigned At Female F [facility] Start: 07-24-1975 End: 07-24-2016 History of tobacco use Current smoker [facility] Start: 07-24-1975 End: 07-24-2016 History of tobacco use Cigarette Smoker [facility] Start: 11-09-2022 End: 02-08-2023 Cigarettes smoked current (pack per day) - Reported 0.8 [facility] Start: 11-09-2022 End: 06-26-2024 Tobacco use and exposure Smokeless tobacco non-user [facility] Start: 11-09-2022 End: 02-19-2025 Alcohol intake Current non-drinker of alcohol (finding) [facility] Start: 11-09-2022 Tobacco Comment active smoker for about 40 years about 1 pk per day; quit 2015 [facility] Start: 1955 Sex Assigned At Not on file [facility] Tobacco smoking status Never [facility] Comment on above: denies use Start: 11-09-2022 End: 02-08-2023 Sex Assigned At Female [facility] Start: 02-15-2024 End: 03-12-2024 Alcoholic beverage intake Ex-drinker (finding) [facility] Start: 12-29-2023 Tobacco Comment Smoked since 16yo NO [facility] Start: 07-25-2024 End: 02-06-2025 Tobacco smoking status NHIS Unknown if ever smoked [facility] Start: 07-25-2024 Health-related behavior (observable entity) Caffeine Use Details [facility] Start: 08-26-2024 Tobacco use and exposure Smoking Tobacco Use Details [facility] Sex Female (finding) [facility] Sexual Orientation Straight or heterosexual [facility] Work Phone: NEGATED: Highlighted row Alcohol intake Alcohol Use Details [facility] NEGATED: Highlighted rowStart: 07-25-2024 History of tobacco use Ex-cigarette smoker [facility] Medical Equipment Procedure Code Equipment Code Equipment Origin al Text Equipment Identifier Dates Phacoemulsification of cataract with intraocular lens implantation Posterior-chamber intraocular lens, pseudophakic ()[id number] FDA Start: 07-07-2022 [facility] Prescription, See Instructions, 100 strip(s), 0, Disp one Glucometer, #100 test strips and #100 lancets to test blood sugars once a day. Dx E11.8, [employer] [address], Supply Start: 12-07-2022 [facility] Prescription, See Instructions, 100 strip(s), 0, Disp one Glucometer, #100 test strips and #100 lancets to test blood sugars once a day. Dx E11.8, [employer] [address], Supply Start: 12-07-2022 [facility] Prescription, See Instructions, 100 strip(s), 0, Disp one Glucometer, #100 test strips and #100 lancets to test blood sugars once a day. Dx E11.8, [employer] #[facility], Supply, 168, cm, 02/20/24 13:59:00 EDT, Height/Length Dosing, 75.4, kg, 02/20/24 13:59:00 EDT, Weight Dosing Start: 02-20-2024 lancets, See Instructions, 100 EA, 1, lancets 33 gauge, [employer] [address], Supply, 168, cm, 05/09/24 13:10:00 EDT, Height/Length Dosing, 74.7, kg, 05/09/24 13:10:00 EDT, Weight Dosing Start: 07-09-2024 [facility] Prescription, See Instructions, 100 strip(s), 0, Disp one Glucometer, #100 test strips and #100 lancets to test blood sugars once a day. Dx E11.8, [employer] [address], Supply, 168, cm, 02/20/24 13:59:00 EDT, Height/Length Dosing, 75.4, kg, 02/20/24 13:59:00 EDT, Weight Dosing Start: 02-20-2024 test strips, See Instructions, 100 EA, 1, to check BS, daily, [employer] [address], Supply, 168, cm, 05/09/24 13:10:00 EDT, Height/Length Dosing, 74.7, kg, 05/09/24 13:10:00 EDT, Weight Dosing Start: 07-09-2024 Goals Date Patient Goal Desired Activity /State Clinical Notes 11-09-2022 to 02-19-2025 Harish Paula MD - 02/19/2025 1:01 PM EDT Note Date & Type Note Facility 02-19-2025 Note HNO ID: [id number] Author: HARISH PAULA MD Service: ? Author Type: Physician Type: Progress Notes Filed: 02/19/2025 13:16 Note Text: Rheumatology Outpatient Clinic Date of Service: 02/19/2025 Patient: Yamile Siddiqui Medical Record: [id number] Primary Care Physician: Aleksander Jimenez MD Referring Provider: SELF Last Rheumatology visit: 10/16/2024 (with Harish Paula) Chief complaint: Follow Up (No questions or concerns. 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 ). She is currently taking methotrexate sodium, prednisone. Yamile is both RF - 49 (11/09/2022) and CCP - 275 (11/09/2022) positive. Her most recent HANK was positive (06/26/2024). History of rheumatoid arthritis She was being followed by local rheumatology in [place], but her daughter wanted her to get a 2nd opinion at [facility]. Seen by Dr. 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 Patient reports pain over MCPs, PIPs, wrists, [...] Continue folic acid to 2 mg daily 10/2023-no synovitis, No synovitis on exam today Continue methotrexate 20 mg weekly, folic acid to 2 mg daily 02/2024 She reports pain in her hands after activities, otherwise reports doing good with no joint swelling. Continues to have low back pain radiating to left leg. Denies any new symptoms 06/2024-seen with daughter, continues to have low back pain with sciatica, seen by orthopedics, had x-ray of her spine that showed degenerative changes, awaiting MRI. She has noted some swelling over right second MCP had swelling over right wrist that lasted for about 3 days. Denies any other symptoms Sister has lupus, worried if she also has lupus 2024 Right 1st PIP pain with mild swelling at times. Right eye blind in central vision. Getting shots every 6 weeks in left eye. Sees [facility], Dr Patrick [place]. Eye hemorrhage. Has pain in thoracic spine. Injections in spine not really helpful and she is fearful of the injection. She does a lot with hands, cooks and cleans. 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 She has been sitting at home a lot. Plans on walking more when it warms up. On Ozempic. Lost some weight over the last few months, 167lb to 159lb. Had no synovitis on exam, continued on same medications. 01/2025-reports ongoing back pain,. She experiences occasional joint pain in the wrists, elbows, shoulders, knees, and ankles, which varies depending on activity level. During these episodes, she takes prednisone as needed. Reports fatigue on and off Previous workups 10/2022 RF 49, CCP 275 04/2018 RF 23 CCP 25 Sed rate/CRP normal TB screening negative Hepatitis B/C negative XR bilateral hands 10/2022- Mild osteoarthritis of the bilateral hands. XR bilateral feet 10/2022- Negative radiographs of the bilateral feet Radiograph bilateral feet 04/2018-Mild pes cavus bilaterally. Small calcaneal enthesophy (more content not included)... [facility] 02-19-2025 History of Present illness Narrative Images from the original note were not included. Rheumatology Outpatient Clinic Date of Service: 02/19/2025 Patient: Yamile Siddiqiu Medical Record: [id number] Primary Care Physician: Aleksander Jimenez MD Referring Provider: SELF Last Rheumatology visit: 10/16/2024 (with Harish Paula) Chief complaint: Follow Up (No questions or concerns. 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 ). She is currently taking methotrexate sodium, prednisone. Yamile is both RF - 49 (11/09/2022) and CCP - 275 (11/09/2022) positive. Her most recent HANK was positive (06/26/2024). History of rheumatoid arthritis She was being followed by local rheumatology in [place], but her daughter wanted her to get a 2nd opinion at [facility]. Seen by Dr. 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 Patient reports pain over MCPs, PIPs, wrists, [...] Continue folic acid to 2 mg daily 10/2023-no synovitis, No synovitis on exam today Continue methotrexate 20 mg weekly, folic acid to 2 mg daily 02/2024 She reports pain in her hands after activities, otherwise reports doing good with no joint swelling. Continues to have low back pain radiating to left leg. Denies any new symptoms 06/2024-seen with daughter, continues to have low back pain with sciatica, seen by orthopedics, had x-ray of her spine that showed degenerative changes, awaiting MRI. She has noted some swelling over right second MCP had swelling over right wrist that lasted for about 3 days. Denies any other symptoms Sister has lupus, worried if she also has lupus 2024 Right 1st PIP pain with mild swelling at times. Right eye blind in central vision. Getting shots every 6 weeks in left eye. Sees [facility], Dr Patrick [place]ot[place]. Eye hemorrhage. Has pain in thoracic spine. Injections in spine not really helpful and she is fearful of the injection. She does a lot with hands, cooks and cleans. 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 She has been sitting at home a lot. Plans on walking more when it warms up. On Ozempic. Lost some weight over the last few months, 167lb to 159lb. Had no synovitis on exam, continued on same medications. 01/2025-reports ongoing back pain,. She experiences occasional joint pain in the wrists, elbows, shoulders, knees, and ankles, which varies depending on activity level. During these episodes, she takes prednisone as needed. Reports fatigue on and off Previous workups 10/2022 RF 49, CCP 275 04/2018 RF [...] lower lumbar spine. Patient-Entered Data PAIN EVALUATION 02/13/2025 0622 Pain Level: 7 Pain Location: Back-Middle Description: Aching;Cramping;Pressure;Stabbing; Stiffness;Throbbing Intervention/Comfort measure: Medication;Reposition;Relaxation;H eat PROMIS Assessments 06/19/2024 10/10/2024 02/13/2025 PROMIS Assessments Physical Health Percentile 22 22 Mental Health Percentile 26 19 Pain Score 3 3 Pain Interference Percentile 10 12 16 Fatigue Percentile 24 24 24 Physical Function Percentile 18 18 16 RAPID 3 [place] Activities of Daily Living 02/13/2025 6:25 AM 10/10/2024 8:15 AM 06/19/2024 7:01 PM First answer obtained - 11/08/2022 11:32 AM Dress self? With SOME difficulty With SOME difficulty With SOME difficulty With SOME difficulty Get in and out of bed? With SOME difficulty With SOME difficulty With SOME difficulty With SOME difficulty Walk outdoors? With SOME difficulty With SOME difficulty Without ANY difficulty With SOME difficulty Wash and dry [...] Moderate Severity 4.3 - 10.0: High Severity 06/19/2024 10/10/2024 02/13/2025 RAPID-3 Weighed Score RAPID 3 Weighed Score 4.89 (High severity ) 4.28 4.44 (High severity ) Review of Systems Review of Systems CONSTITUTION: [...] Memory loss SKIN: Positive for: Hair loss and Nail changes Negative for: Rash and Skin changes EYES: Positive for: Eye pain, Eye redness, Eye dryness and Visual disturbance CARDIOVASCULAR: Negative for: Chest pain and Leg swelling GENITOURINARY: Positive for: Dysuria and Hematuria HEMATOLOGIC/LYMPHATIC: Negative for: Swollen glands Raynaud's: Denies Dry eyes, denies dry mouth Past Medical History PAST MEDICAL HISTORY Diagnosis Date Hyperlipidemia 07/27/2010 Macular degeneration 07/27/2010 Normal coronary arteries 07/2010 [facility] performed for evaluation chest pain, abnormal stress test UTI (urinary tract infection) 07/27/2010 Past Surgical History PAST SURGICAL HISTORY Procedure Laterality Date CARPAL TUNNEL HYSTERECTOMY HX 1991 LIG/TRNSXJ FLP TUBE ABDL/VAG APPR UNI/BI in the OVARIAN CYSTECTOMY in the Allergy ALLERGIES Allergen Reactions Cefuroxime Hives Preparation H (Pe) * Rash, Itching Family History The patient denies family history of SLE, RA, Sarcoidosis, Scleroderma, IBD or Psoriasis. FAMILY HISTORY Problem Relation Age of Onset Ischemic Heart Disease Father other (liver ca) Father age 78 liver CA; CAD other (bladder ca) Mother age 59 bladder CA Heart Brother valvular heart disease Social History Social History Tobacco Use Smoking status: Former Current packs/day: 0.00 Average packs/day: 0.8 packs/day for 40.0 years (30.0 ttl pk-yrs) Types: Cigarettes Start date: 07/24/1975 Quit date: 07/24/2015 Years since quittin.5 Smokeless tobacco: Never Tobacco comments: active smoker for about 40 years about 1 pk per day; quit 2015 Substance Use Topics Alcohol use: No Drug use: No Current Medications Current Outpatient Medications Medication Sig OZEMPIC 1 mg/dose (4 mg/3 mL) pen Inject 1 mg subcutaneously. fluticasone (FLONASE ALLERGY RELIEF) 50 mcg/actuation nasal spray Use 1 [place] in each nostril two times a day. azelastine 0.1% nasal spray Use 1 [place] in each nostril two times a day. atorvastatin (LIPITOR) 20 mg tablet 1 PO at bedtime metFORMIN (GLUCOPHAGE) 850 mg tablet TAKE 1 TABLET BY MOUTH DAILY WITH BREAKFAST & supper predniSONE (DELTASONE) 5 mg tablet Take 1 tablet by mouth as needed. Take 1 tablet by mouth daily as needed folic acid 1 mg tablet Take 2 tablets by mouth once daily. methotrexate 2.5 mg tablet Take 8 tablets by mouth one time a week. No current facility-administered medications for this visit. Labs Latest Ref Rng & Units 11/15/2023 03/20/2024 06/26/2024 10/16/2024 CBC WBC 3.70 - 11.00 k/uL 6.65 5.96 9.17 6.24 Hemoglobin 11.5 - 15.5 g/dL 15.4 15.0 15.1 15.4 Hematocrit 36.0 - 46.0 % 46.8 46.3 45.8 47.4 Platelet Count 150 - 400 k/uL 221 220 205 220 Abs Neut (ANC) 1.45 - 7.50 k/uL 4.13 3.69 6.68 3.64 Abs Lymph 1.00 - 4.00 k/uL 1.96 1.64 1.71 1.86 Latest Ref Rng & Units 11/15/2023 03/20/2024 06/26/2024 10/16/2024 CMP Sodium 136 - 144 mmol/L 140 141 140 141 Potassium 3.7 - 5.1 mmol/L 4.7 5.2 4.5 5.0 Chloride 98 - 107 mmol/L 103 103 102 104 CO2 22 - 30 mmol/L 28 30 24 28 Glucose 74 - 99 mg/dL 109 88 102 91 BUN 7 - 21 mg/dL 12 11 13 15 Creatinine 0.58 - 0.96 mg/dL 0.79 0.82 0.79 0.93 Calcium 8.5 - 10.2 mg/dL 9.8 10.0 9.5 10.1 AST 13 - 35 U/L 30 16 18 17 ALT 7 - 38 U/L 34 13 15 14 Alkaline Phosphatase 34 - 123 U/L 73 71 76 76 Latest Ref Rng & Units 05/10/2018 11/09/2022 06/26/2024 ESR, WSR WSR 0 - 20 mm/hr 8 6 8 Latest Ref Rng & Units 05/10/2018 11/09/2022 06/26/2024 CRP CRP <0.9 mg/dL 0.3 <0.3 0.8 Latest Ref Rng & Units 07/29/2010 CK [...] Negative Negative Latest Ref Rng & Units 06/26/2024 Antibodies HANK Negative Positive HANK Titer 1:160 HANK Pattern Nuclear homogeneous DNA Antibody <=200 IU/mL 9 Anti-Sm <1.0 AI <0.2 Sm Antibody Negative Negative Ribosomal ACADEMIC ADMINISTRATOR Ab <1.0 AI <0.2 Ribosomal ACADEMIC ADMINISTRATOR Qualitative Negative Negative Chromatin Ab <1.0 AI <0.2 Chromatin Ab Qual Negative Negative SSA Antibody Qual Negative Negative Anti-SSA <1.0 AI <0.2 Anti-SSB <1.0 AI <0.2 ACADEMIC ADMINISTRATOR Antibody QUAL Negative Negative Scleroderma Ab Qual Negative Negative Scl-70 Abs, EIA <1.0 AI <0.2 Centromere Ab <1.0 AI <0.2 CENTROMERE AB QUAL Negative Negative JENN-1 ANTIBODY, IGG <1.0 AI <0.2 JENN 1 ANTIBODY QUAL Negative Negative Latest Ref Rng & Units 03/20/2024 Urinalysis Protein, Urine Negative Negative RBC, Urine 0-2 /HPF 0-2 /HPF Latest Ref Rng & Units 05/10/2018 11/09/2022 11/15/2023 Vitamin D Vitamin D 25 Hydroxy 31.0 - 80.0 ng/mL 26.0 31.8 36.8 Imaging Last XR Hand/Finger - Impression Only XR HAND GENERAL 3V PA/LAT/OBL BILATERAL Exam End: 11/09/2022 3:01 PM (Final result) Impression: IMPRESSION: 1. Mild osteoarthritis of the bilateral hands. 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: MAGDA Transcribe Date/Time: Nov 10 2022 8:57A ... Last MRI Hand - Impression Only No resulted procedures found. Last XR Chest - Impression Only No resulted procedures found. Last XR Cervical Spine - Impression Only No resulted procedures found. Health Maintenance Current Immunizations Never Reviewed Name Date COVID-19 vaccine (MODERNA) 06/09/2024 COVID-19 vaccine (PFIZER[employer]) 07/04/2023 COVID-19 vaccine, bivalent (MODERNA) 08/10/2022 COVID-19 vaccine, monovalent (MODERNA) 12/15/2021, 05/20/2021, 10/29/2020, 10/01/2020 Physical Exam VITAL SIGNS: BP (!) 110/48 Pulse 72 Wt 72.1 kg (159 lb) BMI 24.90 kg/m GENERAL APPEARANCE: Well groomed. In no distress. SKIN: No rash, thickening, nodules, calcifications, discoloration. HENT: Normal external examination of the ears and nose, lips, no oral ulcers NECK: No mass or asymmetry, RESPIRATORY: Normal respiratory effort. Clear to auscultation, [...] all solis. No swelling or synovitis. No tenderness to palpation Hands: no tenderness or synovitis over MCPs, PIPs, DIPs Lower extremities: Knees: No swelling or effusion. No tenderness to palpation. Ankles: No tenderness to palpation Feet: No tenderness to palpation. Diagnoses: (M05.79) Rheumatoid arthritis involving multiple sites with positive rheumatoid factor (HCC) (primary encounter diagnosis) (Z79.899) Encounter for long-term (current) use of medications (M85.89) Osteopenia of multiple sites Impression and Plan 1. Seropositive Rheumatoid arthritis, non erosive, non nodular Manifestations- Joint pain with swelling, synovitis, RF 23, CCP 250, good response to methotrexate and prednisone Status-doing well on methotrexate, no joint swelling, takes prednisone 5 mg on and off for occasional flares No synovitis on exam Plan Continue methotrexate 20 mg weekly Continue folic acid to 2 mg daily Can take prednisone 5 mg daily as needed, advised to avoid taking regularly Avoid hydroxychloroquine due to history of macular degeneration Avoid TNF inhibitor due 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 Monitoring for drug toxicity CBC, AST, ALT, albumin, Cr to monitor methotrexate toxicity today TB screening, hep B/C negative in 10/2022 3. Osteoarthritis She does also have osteoarthritis which could be contributing to her knee and shoulder pain continue taking Tylenol as needed May take Aleve as needed Recommend physical therapy Following with orthopedics for back pain, awaiting MRI lumbar spine 4. Thoracic back pain 2022 thoracic xray showed degeneration. Discussed OTC topical regimen including Menthol/Diclofenac/Lidocaine she may use as needed. 5. Osteopenia DEXA 09/2023 reviewed in scanned documents-osteopenia with lowest T-score -1.7 right femoral neck She reports right fifth toe fracture after bumping hard in the kitchen, denies any other fracture. PCP had prescribed Fosamax, has not started yet, reluctant to take too many medications. PTH, vitamin D, TSH, SPEP to evaluate for secondary causes of bone loss unremarkable 10/2023 Since she has not been on steroids recently, repeat DEXA for monitoring bone density, if she has significant worsening, would recommend starting bone strengthening agent. Continue vitamin D supplementation, 1000 unit daily 6. Healthcare maintenance/Malignancy screening Defer to PCP Orders this visit: Office Visit on 02/19/25 CREATININE BLD ALBUMIN ASPARTATE AMINOTRANSFERASE/SGOT COMPLETE BLOOD COUNT AND DIFFERENTIAL ALANINE AMINOTRANSFERASE / SGPT OZEMPIC 1 mg/dose (4 mg/3 mL) pen predniSONE (DELTASONE) 5 mg tablet folic acid 1 mg tablet methotrexate 2.5 mg tablet Return in about 4 months (around 06/22/2025). I spent a total of 20 minutes on the date of the service which included preparing to see the patient, [id number] patient care, completing clinical documentation, obtaining and/or reviewing separately obtained history, performing a medically appropriate examination, counseling and educating the patient/family/caregiver, and ordering medications, tests, or procedures. 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 Bilateral [facility] Work Phone: [phone] [phone] History of Present illness Narrative* Encounter Date Complaint History Of Prese nt Illness Vision decrease and wavy lines T he 69 year old female presents for evaluation of Vision decrease and wavy lines in the left eye. Patient states she noticed on Monday that lines are beginning to wavy, patient states she also feel like she has to be closer to see things, also has to focus harder to see better. Patient denies any new onset of flashes, floaters, or ocular pain. Patient using Systane TID OU. 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 Patient denies any vision changes since her last visit. Patient states that she will occasionally see a floater , but denies any flashes of light. Patient denies any ocular pain. AMD The 69 year old female presents for treatment 3 of 3 for AMD in the left eye. Patient is s/p treatment on 10/07/2024, currently on a 6 week interval. Patient states vision stable, denies any new onset of flashes, floaters, or ocular pain. Patient using Systane daily. AMD The 69 year old female presents for treatment of AMD in the left eye. (Two of three)Patient reports vision is stable with glasses. Denies current flashes of light, floaters OU intermittently that are stable without change. Denies ocular pain. Patient does not use artificial tears currently. 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 Patient states that she has side vision out of her right eye. Patient states that she has some small floaters in her left eye, not there all the time. Patient denies any flashes of light. AMD The 69 year old female presents for evaluation of AMD in the right and left eyes. Patient states no changes in vision since last visit. Patient denies new floaters, flashes of light or ocular pain. AMD The 69 year old female presents for treatment 3 of 3 for AMD in the left eye. Patient states vision stable, patient states seeing several floaters since last treatment. Patient denies any new onset of flashes or ocular pain. AMD The 69 year old female presents for treatment of AMD in the left eye. Patient states vision stable, patient does state occassional floaters, denies any new onset of flashes or ocular pain. AMD The 68 year old female presents for treatment of AMD in the left eye. Patient states vision stable, denies any new onset of flashes, floaters, or ocular pain. RNV The 68 year old female presents for treatment of RNV in the left eye. PT states that vision has been the same and denies flashes of light. Pt states that she had a shower of white dots yesterday which came and went. Pt denies ocular pain. retinal neovascularization The [age] year old patient presents for treatment of retinal neovascularization in the left eye. Patient reports worsened vision in her right eye since her last exam 7 weeks ago. Patient states her peripheral vision is mildly blurry on and off. Patient reports stable vision in her left eye. Patient denies flashes but experiences floaters in her left eye and occasional eye pain in her right eye. retinal neovascularization The 8 6 year old patient presents for evaluation of retinal neovascularization in the left eye. Patient reports worsened vision in her left eye since her last appointment due to mild blurriness. Patient reports stable vision in her right eye. Patient denies flashes but experiences floaters and eye pain in her left eye. Patient complains of itchy eyes. CNV The 68 year old patient presents for treatment and management of CNV in the left eye. CNV The 68 year old patient presents for treatment of CNV in the left eye. Patient states stable vision since last visit. Patient states she has a bad stye in left eye and has been using hot compress for the last three weeks. Patient reports she sometimes sees a black floater in left eye. Patient states right and left eye patino. retinal neovascularization The 8 6 year old patient presents for treatment of retinal neovascularization in the left eye. Patient reports no new visual changes since her last appointment. Patient reports a couple weeks ago she was experiencing extremely sharp pain in her right eye. Patient denies flashes but experiences eye pain and floaters in both eyes. Patient complains of dry eye in both eyes. Retinal neovascularization The 8 6 year old female presents for 7 week evaluation of Retinal neovascularization in the left eye. Patient states that her vision seems the same but she does complains about dots in her vision. Patient denies any flashes of light. retinal neovascularization The 8 6 year old female presents for 6 week evaluation of retinal neovascularization in the left eye. Patient states that her vision gets blurry from time to time and she takes her glassses off to see better. PAtient states floaters come and go. PAtient also states the floaters are not aas bad as they had been. PAtient denies any flashe of light. 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 Retinal neovascularization The 8 5 year old female presents for 5 weeks evaluation of Retinal neovascularization in the left eye. Patient states she has a lot of floaters but she denies any flashes of light. retinal neovascularization The 8 5 year old female presents for evaluation of retinal neovascularization in the right eye. Patient reports when shutting OD, she has noticed reading is easier. When looking with OU, patient complains vision is blurry. Negative flashes and eye pain. Continued floaters. No other concerns at this time. Retinal Neovasculari zation unspecified The 67 year old female presents for urgent evaluation . Patient states that she saw someone from her eye doctors that told patient she had swelling in her right eye and that she needs to be seen as soon as possible. Patient states she will be having cataract surgery on the 15th in her left eye. Patient denies any floaters or flashes of light in her right eye. Retinal neovascularization The 8 2 year old female presents for retinal neovascularization, unspecified in the right eye. Difficulty reading The patient r eports difficulty reading in the left eye since last visit about 1 year(s) ago. It occurs constantly. It affects both near and distance vision. In addition, the condition is associated with daily activities and chores. Patient reports intermittent floaters not affecting the vision. Patient denies flashes. Patient reports no vision change in the right eye. stable The patient stat es her vision has been stable in both eyes in the past year. It affects both near and far vision. Patient states she occasionally notices black dots in her vision. Patient denies eye pain and flashes. retinal neovascularization The 8 1 year old female presents for evaluation of retinal neovascularization in the right eye. burning and tearing The patient reports burning and tearing in the right > left. It started about 3 months ago . The onset was progressive. It affects near vision. The symptom is constant. The condition is moderate. In addition, the condition is associated with daily activity and chores. The patient denies eye pain, flashes. retinal neovascularization The 8 0 year old female presents for evaluation of retinal neovascularization in the right eye. blurry vision The patient repo rts blurry vision in the left eye. It started about 6 months ago. The onset was gradual. It affects distance vision. The symptom is constant. The condition is mild. In addition, the condition is associated with daily activity and chores. retinal neovascularization The 7 9 year old female presents for evaluation of retinal neovascularization in the right eye. black floaters The patient repo rts black floaters in the left eye. It started about 8 months ago. The onset was sudden. Vision is not affected. The symptom is constant. The condition is mild. 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 decreased vision The patient rep orts mild decreased distant vision in both eyes x 6 months. Feels this has gradually decreased but vision insurance ran out and will get glasses checked once she is able to. Does still notice occasional flashing temporal at night in right eye but no change since last visit. POHS The 60 year old female presents for evaluation of POHS in the right eye. flashing light The patient comp lains of flashing light in the right eye temporal peripheral vision. It started about 2 years ago. It affects both near and far vision. The symptom is intermittent. It occurs with no pattern. The condition is not any better. The patient denies change in vision or decreased vision. She occasionally notes a sharp pain. The right eye has had poor vision for a while now. retinal eval This 59 year old diabetic female presents for evaluation of POHS. Monocular patient. Macular Scars The 58 years old female presents for evaluation of Macular Scars in the right eye. 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, right eye Impression/Plan Related to Prese nce of intraocular lens Impression/Plan Related 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, bi, with actv chrdl neovas Return 4 weeks DFE/OCT Related t o Exuda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 degn, bi, with actv chrdl neovas Impression/Plan Related 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, bi, with actv chrdl neovas Impression/Plan Related 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, bi, with actv chrdl neovas Impression/Plan Related 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, bi, with actv chrdl neovas Impression/Plan Related 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, bi, with actv chrdl neovas Impression/Plan Related to Prese nce of intraocular lens Impression/Plan 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, right eye Impression/Plan 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, left Impression/Plan 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, left Impression/Plan 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, left Impression/Plan 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, left Impression/Plan 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, left Impression/Plan 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, left Impression/Plan 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, left Impression/Plan 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, left -RTC 4 wks for IO AVN OS w/ OCT 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, left Impression/Plan 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, left Impression/Plan Related to Retin al neovascularization, unspecified, right eye Impression/Plan 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, left Impression/Plan Related to Prese nce of intraocular lens Impression/Plan Related to Combi kenize forms of age-related cataract, right eye Impression/Plan 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, right eye Impression/Plan Related to Type 2 diabetes mellitus without complications Impression/Plan Related to Age-r elated nuclear cataract, bilateral Impression/Plan Related to Vitre ous degeneration, right eye Impression/Plan Related to Retin al neovascularization, unspecified, right eye Return in 1 year kain Moreno MD for follow up and OCT Related to Retinal neovascularization, unspecified, right eye Impression/Plan Related to Age-r elated nuclear cataract, bilateral Impression/Plan Related to Type 2 diabetes mellitus without complications Impression/Plan Related to Vitre ous degeneration, right eye Impression/Plan Related to Retin al neovascularization, unspecified, right eye Return in 1 year kain Moreno for follow up exam and OCT. Related to Retinal neovascularization, unspecified, right eye Impression/Plan Related to Retin al neovascularization, unspecified, right eye Impression/Plan Related to Vitre ous degeneration, right eye Impression/Plan Related to Other specified retinal disorders Impression/Plan Related to Age-r elated nuclear cataract, bilateral Return in 1 year wit judy Moreno for follow up exam and OCT. Related to Retinal neovascularization, unspecified, right eye Follow up - Return i n [address] Moreno for follow up exam and OCT. Related to Retinal neovascularization, unspecified, right eye Impression/Plan - RI GHT EYE: Inactive idiopathic choroidal neovascularization noted on examination today. No signs of active disease seen on examination or testing. No treatment is indicated today. Visual potential limited by associated central scarring. Will continue to monitor. Patient advised to call with any changes prior to her next scheduled appointment. Related to Retinal neovascularization, unspecified, right eye Impression/Plan - Re gular follow up appointments with the patient's comprehensive eye doctor were recommended to monitor the patients cataract for progression. Referral for surgical intervention is not indicated at this time. Related to Age-related nuclear cataract, bilateral Impression/Plan - Po sterior vitreous detachment was noted on examination today and explained to the patient. There is no evidence of a retinal tear, break, or detachment. The patient was cautioned on the signs and symptoms of retinal detachment and will call immediately with new symptoms or vision loss. 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 Will monitor. Related to Other specified retinal disorders Return in 1 year kain Moreno for follow up exam and OCT. Related to Retinal neovascularization, unspecified, right eye Impression/Plan - Po sterior vitreous detachment was noted on examination today and explained to the patient. There is no evidence of a retinal tear, break, or detachment. The patient was cautioned on the signs and symptoms of retinal detachment and will call immediately with new symptoms or vision loss. Related to Vitreous degeneration, right eye Impression/Plan - Re gular follow up appointments with the patient's comprehensive eye doctor were recommended to monitor the patients cataract for progression. Referral for surgical intervention is not indicated at this time. Related to Age-related nuclear cataract, bilateral Impression/Plan - RI GHT EYE: Vision limiting factor. 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 No signs of active disease seen on examination or testing. No treatment is indicated today. Visual potential limited by associated central scarring. Will continue to monitor. Patient advised to call with any changes prior to her next scheduled appointment. Related to Retinal neovascularization, unspecified, right eye Follow up - Return i n [address] Moreno for follow up exam and OCT. Related to Retinal neovascularization, unspecified, right eye - Regular follow up appointments with the patient's comprehensive eye doctor were recommended to monitor the patients cataract for progression. Referral for surgical intervention is not indicated at this time. Related to Age-related nuclear cataract, bilateral - Posterior vitreous detachment was noted on examination today and explained to the patient. There is no evidence of a retinal tear, break or detachment. Related to Vitreous degeneration, right eye - Will continue to m onitor and observe condition and or symptoms. Related to Other specified retinal disorders - Treated choroidal neovascularization noted on examination today. No signs of active disease seen on examination or testing. No treatment is indicated today. Visual potential limilted by associated central scarring. Will continue to monitor. Patient advised to call with any changes prior to her next scheduled appointment. Related to Retinal neovascularization, unspecified, right eye - Return in [address] Moreno for follow up exam with OCT. Related to Retinal neovascularization, unspecified, right eye - OD: Vision limited d/t macular scar. OS: Not affecting vision. Related to Senile nuclear sclerosis - Macular scar with no active CNVM was noted changes was seen on today's clinical and diagnostic testing. Will continue to monitor and observe. Related to Other macular scars of retina - Return in [address] Moreno for follow up exam with OCT. Related to Other macular scars of retina - There is no eviden ce of a retinal tear, break or detachment. Will continue to monitor. Related to Vitreous degeneration - Will continue to m onitor and observe condition and or symptoms. Related to Retinal exudates and deposits - Macular Scar with no active CNVM was noted on examination and testing today and discussed with patient. Will continue to monitor and observe. Related to Other macular scars of retina - There is no eviden ce of a retinal tear, break or detachment. Will continue to monitor. Related to Vitreous degeneration - Return in 1 year w sunita Moreno for follow up and OCT. Related to Other macular scars of retina - Will continue to m onitor and observe condition and or symptoms. Related to Senile nuclear sclerosis - Discussed diagnosi s in detail with patient. No treatment is required at this time. Will continue to monitor and observe condition and or symptoms. Related to Retinal exudates and deposits Other macular scars of retina OD Condition: established, stable. - Macular Scar with no active CNVM was noted on examination and testing today. Will continue to monitor and observe. Related to Other macular scars of retina Retinal exudates and deposits OD Condition: mild, chronic, stable. - Discussed diagnosis in detail with patient. No treatment is required at this time. Will continue to observe condition and or symptoms. Related to Retinal exudates and deposits Vitreous degeneratio n OU Condition: mild, chronic, stable. - Posterior vitreous detachment was noted on examination today and explained to the patient. There is no evidence of a retinal tear, break or detachment. Signs and symptoms of retinal detachment and tears were discussed in detail. Patient instructed to call the office immediately if any symptoms noted. Recommend the patient return to office for follow up. Appropriate follow up with primary eye career consultant was recommended. Related to Vitreous degeneration - Return in [address] Moreno for follow up and OCT. 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 - The progression of cataracts was noted on examination today and discussed with the patient. It is reasonable from a retinal standpoint that the patient return to their referring physician for further evaluation of the cataracts. Related to Senile nuclear sclerosis [facility] Work Phone: [phone] Evaluation note* Type Assessment Date assessment Exuda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 degn, bi, with actv chrdl neovas impression Exudative age-rel mc lr degn, bi, with actv chrdl neovas: [id number]. 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 Patient denies any vision changes since her last visit. Patient states that she will occasionally see a floater , but denies any flashes of light. Patient denies any ocular pain. AMD The 69 year old female presents for treatment 3 of 3 for AMD in the left eye. Patient is s/p treatment on 10/07/2024, currently on a 6 week interval. Patient states vision stable, denies any new onset of flashes, floaters, or ocular pain. Patient using Systane daily. AMD The 69 year old female presents for treatment of AMD in the left eye. (Two of three)Patient reports vision is stable with glasses. Denies current flashes of light, floaters OU intermittently that are stable without change. Denies ocular pain. Patient does not use artificial tears currently. 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 Patient states that she has side vision out of her right eye. Patient states that she has some small floaters in her left eye, not there all the time. Patient denies any flashes of light. AMD The 69 year old female presents for evaluation of AMD in the right and left eyes. Patient states no changes in vision since last visit. Patient denies new floaters, flashes of light or ocular pain. AMD The 69 year old female presents for treatment 3 of 3 for AMD in the left eye. Patient states vision stable, patient states seeing several floaters since last treatment. Patient denies any new onset of flashes or ocular pain. AMD The 69 year old female presents for treatment of AMD in the left eye. Patient states vision stable, patient does state occassional floaters, denies any new onset of flashes or ocular pain. AMD The 68 year old female presents for treatment of AMD in the left eye. Patient states vision stable, denies any new onset of flashes, floaters, or ocular pain. RNV The 68 year old female presents for treatment of RNV in the left eye. PT states that vision has been the same and denies flashes of light. Pt states that she had a shower of white dots yesterday which came and went. Pt denies ocular pain. retinal neovascularization The 8 6 year old patient presents for treatment of retinal neovascularization in the left eye. Patient reports worsened vision in her right eye since her last exam 7 weeks ago. Patient states her peripheral vision is mildly blurry on and off. Patient reports stable vision in her left eye. Patient denies flashes but experiences floaters in her left eye and occasional eye pain in her right eye. retinal neovascularization The 8 6 year old patient presents for evaluation of retinal neovascularization in the left eye. Patient reports worsened vision in her left eye since her last appointment due to mild blurriness. Patient reports stable vision in her right eye. Patient denies flashes but experiences floaters and eye pain in her left eye. Patient complains of itchy eyes. CNV The 68 year old patient presents for treatment and management of CNV in the left eye. CNV The 68 year old patient presents for treatment of CNV in the left eye. Patient states stable vision since last visit. Patient states she has a bad stye in left eye and has been using hot compress for the last three weeks. Patient reports she sometimes sees a black floater in left eye. Patient states right and left eye patino. retinal neovascularization The 8 6 year old patient presents for treatment of retinal neovascularization in the left eye. Patient reports no new visual changes since her last appointment. Patient reports a couple weeks ago she was experiencing extremely sharp pain in her right eye. Patient denies flashes but experiences eye pain and floaters in both eyes. Patient complains of dry eye in both eyes. Retinal neovascularization The 8 6 year old female presents for 7 week evaluation of Retinal neovascularization in the left eye. Patient states that her vision seems the same but she does complains about dots in her vision. Patient denies any flashes of light. retinal neovascularization The 8 6 year old female presents for 6 week evaluation of retinal neovascularization in the left eye. Patient states that her vision gets blurry from time to time and she takes her glassses off to see better. PAtient states floaters come and go. PAtient also states the floaters are not aas bad as they had been. PAtient denies any flashe of light. 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 Retinal neovascularization The 8 5 year old female presents for 5 weeks evaluation of Retinal neovascularization in the left eye. Patient states she has a lot of floaters but she denies any flashes of light. retinal neovascularization The 8 5 year old female presents for evaluation of retinal neovascularization in the right eye. Patient reports when shutting OD, she has noticed reading is easier. When looking with OU, patient complains vision is blurry. Negative flashes and eye pain. Continued floaters. No other concerns at this time. Retinal Neovasculari zation unspecified The 67 year old female presents for urgent evaluation . Patient states that she saw someone from her eye doctors that told patient she had swelling in her right eye and that she needs to be seen as soon as possible. Patient states she will be having cataract surgery on the 15th in her left eye. Patient denies any floaters or flashes of light in her right eye. Retinal neovascularization The 8 2 year old female presents for retinal neovascularization, unspecified in the right eye. Difficulty reading The patient r eports difficulty reading in the left eye since last visit about 1 year(s) ago. It occurs constantly. It affects both near and distance vision. In addition, the condition is associated with daily activities and chores. Patient reports intermittent floaters not affecting the vision. Patient denies flashes. Patient reports no vision change in the right eye. stable The patient stat es her vision has been stable in both eyes in the past year. It affects both near and far vision. Patient states she occasionally notices black dots in her vision. Patient denies eye pain and flashes. retinal neovascularization The 8 1 year old female presents for evaluation of retinal neovascularization in the right eye. burning and tearing The patient reports burning and tearing in the right > left. It started about 3 months ago . The onset was progressive. It affects near vision. The symptom is constant. The condition is moderate. In addition, the condition is associated with daily activity and chores. The patient denies eye pain, flashes. retinal neovascularization The 8 0 year old female presents for evaluation of retinal neovascularization in the right eye. blurry vision The patient repo rts blurry vision in the left eye. It started about 6 months ago. The onset was gradual. It affects distance vision. The symptom is constant. The condition is mild. In addition, the condition is associated with daily activity and chores. retinal neovascularization The 7 9 year old female presents for evaluation of retinal neovascularization in the right eye. black floaters The patient repo rts black floaters in the left eye. It started about 8 months ago. The onset was sudden. Vision is not affected. The symptom is constant. The condition is mild. 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 decreased vision The patient rep orts mild decreased distant vision in both eyes x 6 months. Feels this has gradually decreased but vision insurance ran out and will get glasses checked once she is able to. Does still notice occasional flashing temporal at night in right eye but no change since last visit. POHS The 60 year old female presents for evaluation of POHS in the right eye. flashing light The patient comp lains of flashing light in the right eye temporal peripheral vision. It started about 2 years ago. It affects both near and far vision. The symptom is intermittent. It occurs with no pattern. The condition is not any better. The patient denies change in vision or decreased vision. She occasionally notes a sharp pain. The right eye has had poor vision for a while now. retinal eval This 59 year old diabetic female presents for evaluation of POHS. Monocular patient. Macular Scars The 58 years old female presents for evaluation of Macular Scars in the right eye. 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, right eye Impression/Plan Related to Prese nce of intraocular lens Impression/Plan Related 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, bi, with actv chrdl neovas Return 4 weeks DFE/OCT Related t o Exuda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 degn, bi, with actv chrdl neovas Impression/Plan Related 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, bi, with actv chrdl neovas Impression/Plan Related 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, bi, with actv chrdl neovas Impression/Plan Related 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, bi, with actv chrdl neovas Impression/Plan Related 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, bi, with actv chrdl neovas Impression/Plan Related to Prese nce of intraocular lens Impression/Plan 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, right eye Impression/Plan 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, left Impression/Plan 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, left Impression/Plan 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, left Impression/Plan 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, left Impression/Plan 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, left Impression/Plan 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, left Impression/Plan 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, left Impression/Plan 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, left -RTC 4 wks for IO AVN OS w/ OCT 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, left Impression/Plan 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, left Impression/Plan 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, right eye Impression/Plan 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, right eye Impression/Plan Related to Prese nce of intraocular lens Impression/Plan 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, left Impression/Plan Related to Retin al neovascularization, unspecified, right eye Impression/Plan Related to Type 2 diabetes mellitus without complications Impression/Plan Related to Age-r elated nuclear cataract, bilateral Impression/Plan Related to Vitre ous degeneration, right eye Impression/Plan Related to Retin al neovascularization, unspecified, right eye Return in 1 year kain Moreno MD for follow up and OCT Related to Retinal neovascularization, unspecified, right eye Impression/Plan Related to Retin al neovascularization, unspecified, right eye Impression/Plan Related to Vitre ous degeneration, right eye Impression/Plan Related to Type 2 diabetes mellitus without complications Impression/Plan Related to Age-r elated nuclear cataract, bilateral Return in 1 year kain Moreno for follow up exam and OCT. Related to Retinal neovascularization, unspecified, right eye Impression/Plan Related to Other specified retinal disorders Impression/Plan Related to Vitre ous degeneration, right eye Impression/Plan Related to Retin al neovascularization, unspecified, right eye Impression/Plan Related to Age-r elated nuclear cataract, bilateral Return in [address] Moreno for follow up exam and OCT. Related to Retinal neovascularization, unspecified, right eye Impression/Plan - RI GHT EYE: Inactive idiopathic choroidal neovascularization noted on examination today. No signs of active disease seen on examination or testing. No treatment is indicated today. Visual potential limited by associated central scarring. Will continue to monitor. Patient advised to call with any changes prior to her next scheduled appointment. Related to Retinal neovascularization, unspecified, right eye Follow up - Return i n [address] Moreno for follow up exam and OCT. Related to Retinal neovascularization, unspecified, right eye Impression/Plan - Re gular follow up appointments with the patient's comprehensive eye doctor were recommended to monitor the patients cataract for progression. Referral for surgical intervention is not indicated at this time. Related to Age-related nuclear cataract, bilateral Impression/Plan - Po sterior vitreous detachment was noted on examination today and explained to the patient. There is no evidence of a retinal tear, break, or detachment. The patient was cautioned on the signs and symptoms of retinal detachment and will call immediately with new symptoms or vision loss. 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 Will monitor. Related to Other specified retinal disorders Return in [address] Moreno for follow up exam and OCT. Related to Retinal neovascularization, unspecified, right eye Impression/Plan - Po sterior vitreous detachment was noted on examination today and explained to the patient. There is no evidence of a retinal tear, break, or detachment. The patient was cautioned on the signs and symptoms of retinal detachment and will call immediately with new symptoms or vision loss. Related to Vitreous degeneration, right eye Impression/Plan - Re gular follow up appointments with the patient's comprehensive eye doctor were recommended to monitor the patients cataract for progression. Referral for surgical intervention is not indicated at this time. Related to Age-related nuclear cataract, bilateral Impression/Plan - RI GHT EYE: Vision limiting factor. 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 No signs of active disease seen on examination or testing. No treatment is indicated today. Visual potential limited by associated central scarring. Will continue to monitor. Patient advised to call with any changes prior to her next scheduled appointment. Related to Retinal neovascularization, unspecified, right eye Follow up - Return i n [address] Moreno for follow up exam and OCT. Related to Retinal neovascularization, unspecified, right eye - Regular follow up appointments with the patient's comprehensive eye doctor were recommended to monitor the patients cataract for progression. Referral for surgical intervention is not indicated at this time. Related to Age-related nuclear cataract, bilateral - Posterior vitreous detachment was noted on examination today and explained to the patient. There is no evidence of a retinal tear, break or detachment. Related to Vitreous degeneration, right eye - Will continue to m onitor and observe condition and or symptoms. Related to Other specified retinal disorders - Treated choroidal neovascularization noted on examination today. No signs of active disease seen on examination or testing. No treatment is indicated today. Visual potential limilted by associated central scarring. Will continue to monitor. Patient advised to call with any changes prior to her next scheduled appointment. Related to Retinal neovascularization, unspecified, right eye - Return in [address] Moreno for follow up exam with OCT. Related to Retinal neovascularization, unspecified, right eye - OD: Vision limited d/t macular scar. OS: Not affecting vision. Related to Senile nuclear sclerosis - Macular scar with no active CNVM was noted changes was seen on today's clinical and diagnostic testing. Will continue to monitor and observe. Related to Other macular scars of retina - Return in [address] Moreno for follow up exam with OCT. Related to Other macular scars of retina - There is no eviden ce of a retinal tear, break or detachment. Will continue to monitor. Related to Vitreous degeneration - Will continue to m onitor and observe condition and or symptoms. Related to Retinal exudates and deposits - Macular Scar with no active CNVM was noted on examination and testing today and discussed with patient. Will continue to monitor and observe. Related to Other macular scars of retina - Discussed diagnosi s in detail with patient. No treatment is required at this time. Will continue to monitor and observe condition and or symptoms. Related to Retinal exudates and deposits - There is no eviden ce of a retinal tear, break or detachment. Will continue to monitor. Related to Vitreous degeneration - Return in 1 year w sunita Moreno for follow up and OCT. Related to Other macular scars of retina - Will continue to m onitor and observe condition and or symptoms. 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 - The progression of cataracts was noted on examination today and discussed with the patient. It is reasonable from a retinal standpoint that the patient return to their referring physician for further evaluation of the cataracts. Related to Senile nuclear sclerosis - Return in [address] Moreno for follow up and OCT. Related to Other macular scars of retina Vitreous degeneratio n OU Condition: mild, chronic, stable. - Posterior vitreous detachment was noted on examination today and explained to the patient. There is no evidence of a retinal tear, break or detachment. Signs and symptoms of retinal detachment and tears were discussed in detail. Patient instructed to call the office immediately if any symptoms noted. Recommend the patient return to office for follow up. Appropriate follow up with primary eye career consultant was recommended. Related to Vitreous degeneration Retinal exudates and deposits OD Condition: mild, chronic, stable. - Discussed diagnosis in detail with patient. No treatment is required at this time. Will continue to observe condition and or symptoms. Related to Retinal exudates and deposits Other macular scars of retina OD Condition: established, stable. - Macular Scar with no active CNVM was noted on examination and testing today. Will continue to monitor and observe. Related to Other macular scars of retina [facility] Work Phone: [phone] Evaluation note* Type Assessment Date assessment Exuda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 vikram atwood, with actv chrdl neovas impression Exudative age-rel mc lr degn, bi, with actv chrdl neovas: [id number]. Bilateral [facility] Work Phone: [phone] History of Present illness Narrative* Encounter Date Complaint History Of Prese nt Illness AMD The 69 year old female presents for treatment 3 of 3 for AMD in the left eye. Patient is s/p treatment on 10/07/2024, currently on a 6 week interval. Patient states vision stable, denies any new onset of flashes, floaters, or ocular pain. Patient using Systane daily. AMD The 69 year old female presents for treatment of AMD in the left eye. (Two of three)Patient reports vision is stable with glasses. Denies current flashes of light, floaters OU intermittently that are stable without change. Denies ocular pain. Patient does not use artificial tears currently. 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 Patient states that she has side vision out of her right eye. Patient states that she has some small floaters in her left eye, not there all the time. Patient denies any flashes of light. AMD The 69 year old female presents for evaluation of AMD in the right and left eyes. Patient states no changes in vision since last visit. Patient denies new floaters, flashes of light or ocular pain. AMD The 69 year old female presents for treatment 3 of 3 for AMD in the left eye. Patient states vision stable, patient states seeing several floaters since last treatment. Patient denies any new onset of flashes or ocular pain. AMD The 69 year old female presents for treatment of AMD in the left eye. Patient states vision stable, patient does state occassional floaters, denies any new onset of flashes or ocular pain. AMD The 68 year old female presents for treatment of AMD in the left eye. Patient states vision stable, denies any new onset of flashes, floaters, or ocular pain. RNV The 68 year old female presents for treatment of RNV in the left eye. PT states that vision has been the same and denies flashes of light. Pt states that she had a shower of white dots yesterday which came and went. Pt denies ocular pain. retinal neovascularization The 8 6 year old patient presents for treatment of retinal neovascularization in the left eye. Patient reports worsened vision in her right eye since her last exam 7 weeks ago. Patient states her peripheral vision is mildly blurry on and off. Patient reports stable vision in her left eye. Patient denies flashes but experiences floaters in her left eye and occasional eye pain in her right eye. retinal neovascularization The 8 6 year old patient presents for evaluation of retinal neovascularization in the left eye. Patient reports worsened vision in her left eye since her last appointment due to mild blurriness. Patient reports stable vision in her right eye. Patient denies flashes but experiences floaters and eye pain in her left eye. Patient complains of itchy eyes. CNV The 68 year old patient presents for treatment and management of CNV in the left eye. CNV The 68 year old patient presents for treatment of CNV in the left eye. Patient states stable vision since last visit. Patient states she has a bad stye in left eye and has been using hot compress for the last three weeks. Patient reports she sometimes sees a black floater in left eye. Patient states right and left eye patino. retinal neovascularization The 8 6 year old patient presents for treatment of retinal neovascularization in the left eye. Patient reports no new visual changes since her last appointment. Patient reports a couple weeks ago she was experiencing extremely sharp pain in her right eye. Patient denies flashes but experiences eye pain and floaters in both eyes. Patient complains of dry eye in both eyes. Retinal neovascularization The 8 6 year old female presents for 7 week evaluation of Retinal neovascularization in the left eye. Patient states that her vision seems the same but she does complains about dots in her vision. Patient denies any flashes of light. retinal neovascularization The 8 6 year old female presents for 6 week evaluation of retinal neovascularization in the left eye. Patient states that her vision gets blurry from time to time and she takes her glassses off to see better. PAtient states floaters come and go. PAtient also states the floaters are not aas bad as they had been. PAtient denies any flashe of light. 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 Retinal neovascularization The 8 5 year old female presents for 5 weeks evaluation of Retinal neovascularization in the left eye. Patient states she has a lot of floaters but she denies any flashes of light. retinal neovascularization The 8 5 year old female presents for evaluation of retinal neovascularization in the right eye. Patient reports when shutting OD, she has noticed reading is easier. When looking with OU, patient complains vision is blurry. Negative flashes and eye pain. Continued floaters. No other concerns at this time. Retinal Neovasculari zation unspecified The 67 year old female presents for urgent evaluation . Patient states that she saw someone from her eye doctors that told patient she had swelling in her right eye and that she needs to be seen as soon as possible. Patient states she will be having cataract surgery on the in her left eye. Patient denies any floaters or flashes of light in her right eye. Retinal neovascularization The 8 2 year old female presents for retinal neovascularization, unspecified in the right eye. Difficulty reading The patient r eports difficulty reading in the left eye since last visit about 1 year(s) ago. It occurs constantly. It affects both near and distance vision. In addition, the condition is associated with daily activities and chores. Patient reports intermittent floaters not affecting the vision. Patient denies flashes. Patient reports no vision change in the right eye. stable The patient stat es her vision has been stable in both eyes in the past year. It affects both near and far vision. Patient states she occasionally notices black dots in her vision. Patient denies eye pain and flashes. retinal neovascularization The 8 1 year old female presents for evaluation of retinal neovascularization in the right eye. burning and tearing The patient reports burning and tearing in the right > left. It started about 3 months ago . The onset was progressive. It affects near vision. The symptom is constant. The condition is moderate. In addition, the condition is associated with daily activity and chores. The patient denies eye pain, flashes. retinal neovascularization The 8 0 year old female presents for evaluation of retinal neovascularization in the right eye. blurry vision The patient repo rts blurry vision in the left eye. It started about 6 months ago. The onset was gradual. It affects distance vision. The symptom is constant. The condition is mild. In addition, the condition is associated with daily activity and chores. retinal neovascularization The 7 9 year old female presents for evaluation of retinal neovascularization in the right eye. black floaters The patient repo rts black floaters in the left eye. It started about 8 months ago. The onset was sudden. Vision is not affected. The symptom is constant. The condition is mild. 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 decreased vision The patient rep orts mild decreased distant vision in both eyes x 6 months. Feels this has gradually decreased but vision insurance ran out and will get glasses checked once she is able to. Does still notice occasional flashing temporal at night in right eye but no change since last visit. POHS The 60 year old female presents for evaluation of POHS in the right eye. flashing light The patient comp lains of flashing light in the right eye temporal peripheral vision. It started about 2 years ago. It affects both near and far vision. The symptom is intermittent. It occurs with no pattern. The condition is not any better. The patient denies change in vision or decreased vision. She occasionally notes a sharp pain. The right eye has had poor vision for a while now. retinal eval This 59 year old diabetic female presents for evaluation of POHS. Monocular patient. Macular Scars The 58 years old female presents for evaluation of Macular Scars in the right eye. 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, bi, with actv chrdl neovas Return 4 weeks DFE/OCT Related t o Exuda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 degn, bi, with actv chrdl neovas Impression/Plan Related 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, bi, with actv chrdl neovas Impression/Plan Related 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, bi, with actv chrdl neovas Impression/Plan Related 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, bi, with actv chrdl neovas Impression/Plan Related 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, bi, with actv chrdl neovas Impression/Plan Related to Prese nce of intraocular lens Impression/Plan 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, right eye Impression/Plan 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, left Impression/Plan 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, left Impression/Plan 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, left Impression/Plan 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, left Impression/Plan 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, left Impression/Plan 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, left Impression/Plan 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, left Impression/Plan 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, left -RTC 4 wks for IO AVN OS w/ OCT 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, left Impression/Plan 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, left Impression/Plan 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, right eye Impression/Plan Related to Retin al neovascularization, unspecified, right eye Impression/Plan 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, left Impression/Plan Related to Prese nce of intraocular lens Impression/Plan 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, right eye Impression/Plan Related to Retin al neovascularization, unspecified, right eye Impression/Plan Related to Vitre ous degeneration, right eye Impression/Plan Related to Age-r elated nuclear cataract, bilateral Impression/Plan Related to Type 2 diabetes mellitus without complications Return in 1 year kain Moreno MD for follow up and OCT Related to Retinal neovascularization, unspecified, right eye Impression/Plan Related to Vitre ous degeneration, right eye Impression/Plan Related to Retin al neovascularization, unspecified, right eye Impression/Plan Related to Type 2 diabetes mellitus without complications Impression/Plan Related to Age-r elated nuclear cataract, bilateral Return in [address] [facility] Dr. Moreno for follow up exam and OCT. Related to Retinal neovascularization, unspecified, right eye Impression/Plan Related to Other specified retinal disorders Impression/Plan Related to Vitre ous degeneration, right eye Impression/Plan Related to Age-r elated nuclear cataract, bilateral Impression/Plan Related to Retin al neovascularization, unspecified, right eye Return in 1 year wit judy Moreno for follow up exam and OCT. Related to Retinal neovascularization, unspecified, right eye Impression/Plan - RI GHT EYE: Inactive idiopathic choroidal neovascularization noted on examination today. No signs of active disease seen on examination or testing. No treatment is indicated today. Visual potential limited by associated central scarring. Will continue to monitor. Patient advised to call with any changes prior to her next scheduled appointment. Related to Retinal neovascularization, unspecified, right eye Follow up - Return i n 1 year with Dr. Moreno for follow up exam and OCT. Related to Retinal neovascularization, unspecified, right eye Impression/Plan - Re gular follow up appointments with the patient's comprehensive eye doctor were recommended to monitor the patients cataract for progression. Referral for surgical intervention is not indicated at this time. Related to Age-related nuclear cataract, bilateral Impression/Plan - Po sterior vitreous detachment was noted on examination today and explained to the patient. There is no evidence of a retinal tear, break, or detachment. The patient was cautioned on the signs and symptoms of retinal detachment and will call immediately with new symptoms or vision loss. 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 Will monitor. Related to Other specified retinal disorders Return in [address] Moreno for follow up exam and OCT. Related to Retinal neovascularization, unspecified, right eye Impression/Plan - Po sterior vitreous detachment was noted on examination today and explained to the patient. There is no evidence of a retinal tear, break, or detachment. The patient was cautioned on the signs and symptoms of retinal detachment and will call immediately with new symptoms or vision loss. Related to Vitreous degeneration, right eye Impression/Plan - Re gular follow up appointments with the patient's comprehensive eye doctor were recommended to monitor the patients cataract for progression. Referral for surgical intervention is not indicated at this time. Related to Age-related nuclear cataract, bilateral Impression/Plan - RI GHT EYE: Vision limiting factor. 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 No signs of active disease seen on examination or testing. No treatment is indicated today. Visual potential limited by associated central scarring. Will continue to monitor. Patient advised to call with any changes prior to her next scheduled appointment. Related to Retinal neovascularization, unspecified, right eye Follow up - Return i n [address] Moreno for follow up exam and OCT. Related to Retinal neovascularization, unspecified, right eye - Will continue to m onitor and observe condition and or symptoms. Related to Other specified retinal disorders - Posterior vitreous detachment was noted on examination today and explained to the patient. There is no evidence of a retinal tear, break or detachment. Related to Vitreous degeneration, right eye - Regular follow up appointments with the patient's comprehensive eye doctor were recommended to monitor the patients cataract for progression. Referral for surgical intervention is not indicated at this time. Related to Age-related nuclear cataract, bilateral - Treated choroidal neovascularization noted on examination today. No signs of active disease seen on examination or testing. No treatment is indicated today. Visual potential limilted by associated central scarring. Will continue to monitor. Patient advised to call with any changes prior to her next scheduled appointment. Related to Retinal neovascularization, unspecified, right eye - Return in 1 year w [facility] Dr. Moreno for follow up exam with OCT. Related to Retinal neovascularization, unspecified, right eye - OD: Vision limited d/t macular scar. OS: Not affecting vision. Related to Senile nuclear sclerosis - Macular scar with no active CNVM was noted changes was seen on today's clinical and diagnostic testing. Will continue to monitor and observe. Related to Other macular scars of retina - Return in 1 year w [facility] Dr. Moreno for follow up exam with OCT. Related to Other macular scars of retina - There is no eviden ce of a retinal tear, break or detachment. Will continue to monitor. Related to Vitreous degeneration - Will continue to m onitor and observe condition and or symptoms. Related to Retinal exudates and deposits - Discussed diagnosi s in detail with patient. No treatment is required at this time. Will continue to monitor and observe condition and or symptoms. Related to Retinal exudates and deposits - There is no eviden ce of a retinal tear, break or detachment. Will continue to monitor. Related to Vitreous degeneration - Return in 1 year w [facility] Dr. Moreno for follow up and OCT. Related to Other macular scars of retina - Will continue to m onitor and observe condition and or symptoms. Related to Senile nuclear sclerosis - Macular Scar with no active CNVM was noted on examination and testing today and discussed with patient. Will continue to monitor and observe. Related to Other macular scars of retina Other macular scars of retina OD Condition: established, stable. - Macular Scar with no active CNVM was noted on examination and testing today. Will continue to monitor and observe. Related to Other macular scars of retina Retinal exudates and deposits OD Condition: mild, chronic, stable. - Discussed diagnosis in detail with patient. No treatment is required at this time. Will continue to observe condition and or symptoms. Related to Retinal exudates and deposits Vitreous degeneratio n OU Condition: mild, chronic, stable. - Posterior vitreous detachment was noted on examination today and explained to the patient. There is no evidence of a retinal tear, break or detachment. Signs and symptoms of retinal detachment and tears were discussed in detail. Patient instructed to call the office immediately if any symptoms noted. Recommend the patient return to office for follow up. Appropriate follow up with primary eye career consultant was recommended. Related to Vitreous degeneration Senile nuclear scler osis OU Condition: mild, chronic, active. - The progression of cataracts was noted on examination today and discussed with the patient. It is reasonable from a retinal standpoint that the patient return to their referring physician for further evaluation of the cataracts. Related to Senile nuclear sclerosis - Return in [address] Moreno for follow up and OCT. Related to Other macular scars of retina [facility] Work Phone: [phone] Instructions* Patient Instructions* Kishore Curiel APRN.CNP - 10/16/2024 12:42 PM EDT -May use Lidocaine patch over your back, on am off pm. -Ok to use Menthol (Biofreeze or Muscle rub at [employer]) over back. -Voltaren (Diclofenac) gel up to 4 times a day. documented [facility] NoteHNO ID: [id number] Author: HARISH PAULA MD Service: ? Author Type: Physician Type: Progress Notes Filed: 10/16/2024 13:45 Note Text: Rheumatology Outpatient Clinic Date of Service: 10/16/2024 Patient: Yamile Siddiqui Medical Record: [id number] Primary Care Physician: Aleksander Jimenez MD Referring Provider: SELF Last Rheumatology visit: 06/26/2024 (with Harish Paula) Chief complaint: F/U 3 Month (RA continues to have stiffness lasting 1-2 hrs and swelling in hands , refills needed ) History of Present Illness Yamile Siddiqui is a 69 year old White female with medical history of rheumatoid arthritis, hyperlipidemia, diabetes mellitus, history of tobacco use, Histoplasmosis right eye in ( treated), 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 She is currently taking methotrexate sodium, prednisone. Yamile is both RF - 49 (11/09/2022) and CCP - 275 (11/09/2022) positive. Her most recent HANK was positive (06/26/2024). History of rheumatoid arthritis She was being followed by local rheumatology in [place], but her daughter wanted her to [facility]. Seen by Dr. 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 Patient reports pain over MCPs, PIPs, wrists, [...] Continue folic acid to 2 mg daily 10/2023-no synovitis, No synovitis on exam today Continue methotrexate 20 mg weekly, folic acid to 2 mg daily 02/2024 She reports pain in her hands after activities, otherwise reports doing good with no joint swelling. Continues to have low back pain radiating to left leg. Denies any new symptoms 06/2024-seen with daughter, continues to have low back pain with sciatica, seen by orthopedics, had x-ray of her spine that showed degenerative changes, awaiting MRI. She has noted some swelling over right second MCP had swelling over right wrist that lasted for about 3 days. Denies any other symptoms Sister has lupus, worried if she also has lupus 2024 Right 1st PIP pain with mild swelling at times. Right eye blind in central vision. Getting shots every 6 weeks in left eye. Sees [facility], Dr Patrick [place]. Eye hemorrhage. Has pain in thoracic spine. Injections in spine not really helpful and she is fearful of the injection. She does a lot with hands, cooks and cleans. 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 She has been sitting at home a lot. Plans on walking more when it warms up. On Ozempic. Lost some weight over the last few months, 167lb to 159lb. Previous workups 10/2022 RF 49, CCP 275 04/2018 RF [...] Degenerative facet changes in the lower lumbar sp (more content not included)... [facility]03[facility] History of Present illness Narrative* Harish Paula MD - 10/16/2024 12:17 PM EDT Images from the original note were not included. Rheumatology Outpatient Clinic Date of Service: 10/16/2024 Patient: Yamile Siddiqui Medical Record: [id number] Primary Care Physician: Aleksander Jimenez MD Referring Provider: SELF Last Rheumatology visit: 06/26/2024 (with Harish Paula) Chief complaint: F/U 3 Month (RA continues to have stiffness lasting 1-2 hrs and swelling in hands , refills needed ) History of Present Illness Yamile Siddiqui is a 69 year old White female with medical history of rheumatoid arthritis, hyperlipidemia, diabetes mellitus, history of tobaccouse, Histoplasmosis right eye in ( treated), macular degeneration ( blind right eye central vision), presents on 10/16/2024 for an in- person visit for evaluation of F/U 3 Month (RA continuesto have stiffness lasting 1-2 hrs and swelling in hands , refills needed ). She is currently takingmethotrexate sodium, prednisone. Yamile is both RF - 49 (11/09/2022) and CCP - 275 (11/09/2022) positive. Her most recent HANK was positive (06/26/2024). History of rheumatoid arthritis She was being followed by local rheumatology in [place], but her daughter wanted her to get a 2[facility]. Seen by Dr. 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 Patient reports pain over MCPs, PIPs, wrists, [...] Continue folic acid to 2 mg daily 10/2023-no synovitis, No synovitis on exam today Continue methotrexate 20 mg weekly, folic acid to 2 mg daily 02/2024 She reports pain in her hands after activities, otherwise reports doing good with no joint swelling. Continues to have low back pain radiating to left leg. Denies any new symptoms 06/2024-seen with daughter, continues to have low back pain with sciatica, seen by orthopedics, hadx-ray of her spine that showed degenerative changes, awaiting MRI. She has noted some swelling overright second MCP had swelling over right wrist that lasted for about 3 days. Denies any other symptoms Sister has lupus, worried if she also has lupus 2024 Right 1st PIP pain with mild swelling at times. Right eye blind in central vision. Getting shots every 6 weeks in left eye. Sees [facility], Dr Patrick Al-Shweiki. Eye hemorrhage. Has pain in thoracic spine. Injections in spine not really helpful and she is fearful of the injection. She does a lot with hands, cooks and cleans. 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 She has been sitting at home a lot. Plans on walking more when it warms up. On Ozempic. Lost some weight over the last few months, 167lb to 159lb. Previous workups 10/2022 RF 49, CCP 275 04/2018 RF [...] lower lumbar spine. Patient-Entered Data PAIN EVALUATION 10/10/2024 0813 Pain Level: 6 Pain Location: Back-Middle Description: Aching;Stabbing/Not Incision;Stiffness Duration Units: Hours Frequency: Continuous PROMIS Assessments 05/23/2024 06/19/2024 10/10/2024 PROMIS Assessments Physical Health Percentile 22 22 Mental Health Percentile 26 26 Pain Score 3 3 Pain Interference Percentile 10 12 Fatigue Percentile 24 24 Physical Function Percentile 18 18 RAPID 3 [place]arr Activities of Daily Living 10/10/2024 8:15 AM 06/19/2024 7:01 PM 03/17/2024 6:15 PM Firstanswer obtained - 11/08/2022 11:32 AM Dress self? With SOME difficulty With SOME difficulty With SOME difficulty With SOME difficulty Get in and out of bed? With SOME difficulty With SOME difficulty With SOME difficulty With SOME difficulty Walk outdoors? With SOME difficulty Without ANY difficulty With SOME difficulty With SOME difficulty [...] Moderate Severity 4.3 - 10.0: High Severity 03/17/2024 06/19/2024 10/10/2024 RAPID-3 Weighed Score RAPID 3 Weighed Score 4.44 (High severity ) 4.89 (High severity ) 4.28 Review of Systems Review of Systems CONSTITUTION: Negative for: Fever and Recent weight change HEENT: Positive for: Mouth sores and Dry mouth Negative for: Nosebleeds and Trouble swallowing RESPIRATORY: Negative for: Cough, Shortness of breath and Pain with breathing GASTROINTESTINAL: Negative for: Melena, Diarrhea, Heartburn and Abdominal pain MUSCULOSKELETAL: Positive for: Arthralgias, Myalgias, Muscle weakness, Joint swelling and Morning Joint Stiffness NEUROLOGICAL: Positive for: Headaches and Numbness Negative for: Memory loss SKIN: Positive for: Hair loss and Nail changes Negative for: Rash and Skin changes EYES: Positive for: Eye pain, Eye redness, Eye dryness and Visual disturbance CARDIOVASCULAR: Negative for: Chest pain and Leg swelling GENITOURINARY: Negative for: Dysuria and Hematuria HEMATOLOGIC/LYMPHATIC: Negative for: Swollen glands Raynaud's: Denies Dry eyes, denies dry mouth Past Medical History PAST MEDICAL HISTORY Diagnosis Date Hyperlipidemia 07/27/2010 Macular degeneration 07/27/2010 Normal coronary arteries 07/2010 [facility] performed for evaluation chest pain, abnormal stress test UTI (urinary tract infection) 07/27/2010 Past Surgical History PAST SURGICAL HISTORY Procedure Laterality Date CARPAL TUNNEL HYSTERECTOMY HX 1992 LIG/TRNSXJ FLP TUBE ABDL/VAG APPR UNI/BI in the OVARIAN CYSTECTOMY in the Allergy ALLERGIES Allergen Reactions Cefuroxime Hives Preparation H (Pe) * Rash, Itching Family History The patient denies family history of SLE, RA, Sarcoidosis, Scleroderma, IBD or Psoriasis. FAMILY HISTORY Problem Relation Age of Onset Ischemic Heart Disease Father other (liver ca) Father age 78 liver CA; CAD other (bladder ca) Mother age 59 bladder CA Heart Brother valvular heart disease Social History Social History Tobacco Use Smoking status: Former Current packs/day: 0.00 Average packs/day: 0.8 packs/day for 40.0 years (30.0 ttl pk-yrs) Types: Cigarettes Start date: 07/24/1975 Quit date: 07/24/2015 Years since quittin.2 Smokeless tobacco: Never Tobacco comments: active smoker for about 40 years about 1 pk per day; quit 2015 Substance Use Topics Alcohol use: No Drug use: No Current Medications Current Outpatient Medications Medication Sig predniSONE (DELTASONE) 5 mg tablet Take 1 tablet by mouth as needed. Take 1 tablet by mouth daily as needed fluticasone (FLONASE ALLERGY RELIEF) 50 mcg/actuation nasal spray Use 1 [place] in each nostril two times a day. azelastine 0.1% nasal spray Use 1 [place] in each nostril two times a day. INV SEMAGLUTIDE, OZEMPIC,, 2 MG/1.5 ML, PEN (IRB 20-853) Inject 0.5 mg subcutaneously one time a week. For Investigation Drug Use Only. PI: Dr. Pierce Lee atorvastatin (LIPITOR) 20 mg tablet 1 PO at bedtime metFORMIN (GLUCOPHAGE) 850 mg tablet TAKE 1 TABLET BY MOUTH DAILY WITH BREAKFAST & supper methotrexate 2.5 mg tablet Take 8 tablets by mouth one time a week. folic acid 1 mg tablet Take 2 tablets by mouth once daily. No current facility-administered medications for this visit. Labs Latest Ref Rng & Units 08/16/2023 11/15/2023 03/20/2024 06/26/2024 CBC WBC 3.70 - 11.00 k/uL 6.86 6.65 5.96 9.17 Hemoglobin 11.5 - 15.5 g/dL 15.4 15.4 15.0 15.1 Hematocrit 36.0 - 46.0 % 45.1 46.8 46.3 45.8 Platelet Count 150 - 400 k/uL 211 221 220 205 Abs Neut (ANC) 1.45 - 7.50 k/uL 4.36 4.13 3.69 6.68 Abs Lymph 1.00 - 4.00 k/uL 1.91 1.96 1.64 1.71 Latest Ref Rng & Units 08/16/2023 11/15/2023 03/20/2024 06/26/2024 CMP Sodium 136 - 144 mmol/L 140 141 140 Potassium 3.7 - 5.1 mmol/L 4.7 5.2 4.5 Chloride 98 - 107 mmol/L 103 103 102 CO2 22 - 30 mmol/L 28 30 24 Glucose 74 - 99 mg/dL 109 88 102 BUN 7 - 21 mg/dL 12 11 13 Creatinine 0.58 - 0.96 mg/dL 0.85 0.79 0.82 0.79 Calcium 8.5 - 10.2 mg/dL 9.8 10.0 9.5 AST 13 - 35 U/L 15 30 16 18 ALT 7 - 38 U/L 19 34 13 15 Alkaline Phosphatase 34 - 123 U/L 73 71 76 Latest Ref Rng & Units 05/10/2018 11/09/2022 06/26/2024 ESR, WSR WSR 0 - 20 mm/hr 8 6 8 Latest Ref Rng & Units 05/10/2018 11/09/2022 06/26/2024 CRP CRP <0.9 mg/dL 0.3 <0.3 0.8 Latest Ref Rng & Units 07/29/2010 CK [...] results. In case of a contact investigation, pleaserepeat 8-12 weeks after a known exposure. TB Result Negative Negative Latest Ref Rng & Units 06/26/2024 Antibodies HANK Negative Positive HANK Titer 1:160 HANK Pattern Nuclear homogeneous DNA Antibody <=200 IU/mL 9 Anti-Sm <1.0 AI <0.2 Sm Antibody Negative Negative Ribosomal ACADEMIC ADMINISTRATOR Ab <1.0 AI <0.2 Ribosomal ACADEMIC ADMINISTRATOR Qualitative Negative Negative Chromatin Ab <1.0 AI <0.2 Chromatin Ab Qual Negative Negative SSA Antibody Qual Negative Negative Anti-SSA <1.0 AI <0.2 Anti-SSB <1.0 AI <0.2 ACADEMIC ADMINISTRATOR Antibody QUAL Negative Negative Scleroderma Ab Qual Negative Negative Scl-70 Abs, EIA <1.0 AI <0.2 Centromere Ab <1.0 AI <0.2 CENTROMERE AB QUAL Negative Negative JENN-1 ANTIBODY, IGG <1.0 AI <0.2 JENN 1 ANTIBODY QUAL Negative Negative Latest Ref Rng & Units 03/20/2024 Urinalysis Protein, Urine Negative Negative RBC, Urine 0-2 /HPF 0-2 /HPF Latest Ref Rng & Units 05/10/2018 11/09/2022 11/15/2023 Vitamin D Vitamin D 25 Hydroxy 31.0 - 80.0 ng/mL 26.0 31.8 36.8 Imaging Last XR Hand/Finger - Impression Only XR HAND GENERAL 3V PA/LAT/OBL BILATERAL Exam End: 11/09/2022 3:01 PM (Final result) Impression: IMPRESSION: 1. Mild osteoarthritis of the bilateral hands. 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: MAGDA Transcribe Date/Time: Nov 10 2022 8:57A ... Last MRI Hand - Impression Only No resulted procedures found. Last XR Chest - Impression Only No resulted procedures found. Last XR Cervical Spine - Impression Only No resulted procedures found. Health Maintenance Current Immunizations Never Reviewed Name Date COVID-19 vaccine (MODERNA) 06/09/2024 COVID-19 vaccine ([employer]) 07/04/2023 COVID-19 vaccine, bivalent (MODERNA) 08/10/2022 COVID-19 vaccine, monovalent (MODERNA) 12/15/2021, 05/20/2021, 10/29/2020, 10/01/2020 Physical Exam VITAL SIGNS: BP 108/71 Pulse 78 Wt 72.4 kg (159 lb 9.8 oz) SpO2 96% BMI 25.00 kg/m GENERAL APPEARANCE: Well groomed. In no distress. SKIN: No rash, thickening, nodules, calcifications, discoloration. HENT: Normal external examination of the ears and nose, lips, NECK: No mass or asymmetry, RESPIRATORY: Normal respiratory effort. Clear to auscultation, [...] all solis. No swelling or synovitis. No tenderness to palpation Hands: Right thumb IP slight tenderness worse with flexion, no tenderness or synovitis over MCPs, PIPs, DIPs Lower extremities: Knees: No swelling or effusion. No tenderness to palpation. Ankles: No tenderness to palpation Feet: No tenderness to palpation. Diagnoses: (M05.79) Rheumatoid arthritis involving multiple sites with positive rheumatoid factor (HCC) (primary encounter diagnosis) (Z79.899) Encounter for long-term (current) use of medications (M54.6) Thoracic back pain, unspecified back pain laterality, unspecified chronicity (M19.90) Arthritis Impression and Plan 1. Seropositive Rheumatoid arthritis, non erosive, non nodular Manifestations- Joint pain with swelling, synovitis, RF 23, CCP 250, good response to methotrexate and prednisone Status-doing well on methotrexate, no joint swelling, She has not used prednisone for long time now No synovitis on exam Plan Continue methotrexate 20 mg weekly Continue folic acid to 2 mg daily Can take prednisone 5 mg daily as needed, advised to avoid taking regularly Avoid hydroxychloroquine due to history of macular degeneration Avoid TNF inhibitor due 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 Monitoring for drug toxicity CBC, CMP to monitor methotrexate toxicity today TB screening, hep B/C negative in 10/2022 3. Osteoarthritis She does also have osteoarthritis which could be contributing to her knee and shoulder pain continue taking Tylenol as needed May take Aleve as needed Recommend physical therapy Following with orthopedics for back pain, awaiting MRI lumbar spine 4. Thoracic back pain 2022 thoracic xray showed degeneration. Discussed OTC topical regimen including Menthol/Diclofenac/Lidocaine she may use as needed. 5. Osteopenia DEXA 09/2023 reviewed in scanned documents-osteopenia with lowest T-score -1.7 right femoral neck She reports right fifth toe fracture after bumping hard in the kitchen, denies any other fracture. PCP had prescribed Fosamax, has not started yet, reluctant to take too many medications. PTH, vitamin D, TSH, SPEP to evaluate for secondary causes of bone loss unremarkable 10/2023 Since she has not been on steroids recently, repeat DEXA for monitoring bone density, if she has significant worsening, would recommend starting bone strengthening agent. Continue vitamin D supplementation, 1000 unit daily 6. Healthcare maintenance/Malignancy screening Defer to PCP Orders this visit: Office Visit on 10/16/24 COMPREHENSIVE METABOLIC PANEL COMPLETE BLOOD COUNT AND DIFFERENTIAL methotrexate 2.5 mg tablet folic acid 1 mg tablet Return in about 3 months (around 01/16/2025). I spent a total of 23 minutes on the date of the service which included preparing to see the patient, [id number] patient care, completing clinical documentation, obtaining and/or reviewing separately obtained history, performing a medically appropriate examination, counseling and educating the pat ient/family/caregiver, and ordering medications, tests, or procedures. Harish Paula MD, [facility] Evaluation note* Type Assessment Date assessment Exuda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 degn, bi, with actv chrdl neovas impression Exudative age-rel mc lr degn, bi, with actv chrdl neovas: H35.3231. Bilateral [facility] Work Phone: [phone]) [phone] History of Present illness Narrative* Encounter Date Complaint History Of Prese nt Illness AMD The 69 year old female presents for treatment of AMD in the left eye. (Two of three)Patient reports vision is stable with glasses. Denies current flashes of light, floaters OU intermittently that are stable without change. Denies ocular pain. Patient does not use artificial tears currently. 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 Patient states that she has side vision out of her right eye. Patient states that she has some small floaters in her left eye, not there all the time. Patient denies any flashes of light. AMD The 69 year old female presents for evaluation of AMD in the right and left eyes. Patient states no changes in vision since last visit. Patient denies new floaters, flashes of light or ocular pain. AMD The 69 year old female presents for treatment 3 of 3 for AMD in the left eye. Patient states vision stable, patient states seeing several floaters since last treatment. Patient denies any new onset of flashes or ocular pain. AMD The 69 year old female presents for treatment of AMD in the left eye. Patient states vision stable, patient does state occassional floaters, denies any new onset of flashes or ocular pain. AMD The 68 year old female presents for treatment of AMD in the left eye. Patient states vision stable, denies any new onset of flashes, floaters, or ocular pain. RNV The 68 year old female presents for treatment of RNV in the left eye. PT states that vision has been the same and denies flashes of light. Pt states that she had a shower of white dots yesterday which came and went. Pt denies ocular pain. retinal neovascularization The 6 6 year old patient presents for treatment of retinal neovascularization in the left eye. Patient reports worsened vision in her right eye since her last exam 7 weeks ago. Patient states her peripheral vision is mildly blurry on and off. Patient reports stable vision in her left eye. Patient denies flashes but experiences floaters in her left eye and occasional eye pain in her right eye. retinal neovascularization The 6 6 year old patient presents for evaluation of retinal neovascularization in the left eye. Patient reports worsened vision in her left eye since her last appointment due to mild blurriness. Patient reports stable vision in her right eye. Patient denies flashes but experiences floaters and eye pain in her left eye. Patient complains of itchy eyes. CNV The 68 year old patient presents for treatment and management of CNV in the left eye. CNV The 68 year old patient presents for treatment of CNV in the left eye. Patient states stable vision since last visit. Patient states she has a bad stye in left eye and has been using hot compress for the last three weeks. Patient reports she sometimes sees a black floater in left eye. Patient states right and left eye patino. retinal neovascularization The 6 6 year old patient presents for treatment of retinal neovascularization in the left eye. Patient reports no new visual changes since her last appointment. Patient reports a couple weeks ago she was experiencing extremely sharp pain in her right eye. Patient denies flashes but experiences eye pain and floaters in both eyes. Patient complains of dry eye in both eyes. Retinal neovascularization The 8 6 year old female presents for 7 week evaluation of Retinal neovascularization in the left eye. Patient states that her vision seems the same but she does complains about dots in her vision. Patient denies any flashes of light. retinal neovascularization The 8 6 year old female presents for 6 week evaluation of retinal neovascularization in the left eye. Patient states that her vision gets blurry from time to time and she takes her glassses off to see better. PAtient states floaters come and go. PAtient also states the floaters are not aas bad as they had been. PAtient denies any flashe of light. 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 Retinal neovascularization The 8 5 year old female presents for 5 weeks evaluation of Retinal neovascularization in the left eye. Patient states she has a lot of floaters but she denies any flashes of light. retinal neovascularization The 8 5 year old female presents for evaluation of retinal neovascularization in the right eye. Patient reports when shutting OD, she has noticed reading is easier. When looking with OU, patient complains vision is blurry. Negative flashes and eye pain. Continued floaters. No other concerns at this time. Retinal Neovasculari zation unspecified The 67 year old female presents for urgent evaluation . Patient states that she saw someone from her eye doctors that told patient she had swelling in her right eye and that she needs to be seen as soon as possible. Patient states she will be having cataract surgery on the in her left eye. Patient denies any floaters or flashes of light in her right eye. Retinal neovascularization The 6 2 year old female presents for retinal neovascularization, unspecified in the right eye. Difficulty reading The patient r eports difficulty reading in the left eye since last visit about 1 year(s) ago. It occurs constantly. It affects both near and distance vision. In addition, the condition is associated with daily activities and chores. Patient reports intermittent floaters not affecting the vision. Patient denies flashes. Patient reports no vision change in the right eye. stable The patient stat es her vision has been stable in both eyes in the past year. It affects both near and far vision. Patient states she occasionally notices black dots in her vision. Patient denies eye pain and flashes. retinal neovascularization The 8 1 year old female presents for evaluation of retinal neovascularization in the right eye. burning and tearing The patient reports burning and tearing in the right > left. It started about 3 months ago . The onset was progressive. It affects near vision. The symptom is constant. The condition is moderate. In addition, the condition is associated with daily activity and chores. The patient denies eye pain, flashes. retinal neovascularization The 8 0 year old female presents for evaluation of retinal neovascularization in the right eye. blurry vision The patient repo rts blurry vision in the left eye. It started about 6 months ago. The onset was gradual. It affects distance vision. The symptom is constant. The condition is mild. In addition, the condition is associated with daily activity and chores. retinal neovascularization The 7 9 year old female presents for evaluation of retinal neovascularization in the right eye. black floaters The patient repo rts black floaters in the left eye. It started about 8 months ago. The onset was sudden. Vision is not affected. The symptom is constant. The condition is mild. 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 decreased vision The patient rep orts mild decreased distant vision in both eyes x 6 months. Feels this has gradually decreased but vision insurance ran out and will get glasses checked once she is able to. Does still notice occasional flashing temporal at night in right eye but no change since last visit. POHS The 60 year old female presents for evaluation of POHS in the right eye. flashing light The patient comp lains of flashing light in the right eye temporal peripheral vision. It started about 2 years ago. It affects both near and far vision. The symptom is intermittent. It occurs with no pattern. The condition is not any better. The patient denies change in vision or decreased vision. She occasionally notes a sharp pain. The right eye has had poor vision for a while now. retinal eval This 59 year old diabetic female presents for evaluation of POHS. Monocular patient. Macular Scars The 58 years old female presents for evaluation of Macular Scars in the right eye. 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, right eye Impression/Plan Related to Prese nce of intraocular lens Impression/Plan Related 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, bi, with actv chrdl neovas Return 4 weeks DFE/OCT Related t o Exuda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 degn, bi, with actv chrdl neovas Impression/Plan Related 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, bi, with actv chrdl neovas Impression/Plan Related 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, bi, with actv chrdl neovas Impression/Plan Related 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, bi, with actv chrdl neovas Impression/Plan Related 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, bi, with actv chrdl neovas Impression/Plan Related to Prese nce of intraocular lens Impression/Plan 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, right eye Impression/Plan 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, left Impression/Plan 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, left Impression/Plan 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, left Impression/Plan 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, left Impression/Plan 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, left Impression/Plan 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, left Impression/Plan 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, left Impression/Plan 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, left -RTC 4 wks for IO AVN OS w/ OCT 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, left Impression/Plan 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, left Impression/Plan Related to Retin al neovascularization, unspecified, right eye Impression/Plan 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, left Impression/Plan Related to Prese nce of intraocular lens Impression/Plan 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, right eye Impression/Plan 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, right eye Impression/Plan Related to Type 2 diabetes mellitus without complications Impression/Plan Related to Age-r elated nuclear cataract, bilateral Impression/Plan Related to Vitre ous degeneration, right eye Impression/Plan Related to Retin al neovascularization, unspecified, right eye Return in 1 year kain Moreno MD for follow up and OCT Related to Retinal neovascularization, unspecified, right eye Impression/Plan Related to Age-r elated nuclear cataract, bilateral Impression/Plan Related to Type 2 diabetes mellitus without complications Impression/Plan Related to Vitre ous degeneration, right eye Impression/Plan Related to Retin al neovascularization, unspecified, right eye Return in 1 year kain Moreno for follow up exam and OCT. Related to Retinal neovascularization, unspecified, right eye Impression/Plan Related to Retin al neovascularization, unspecified, right eye Impression/Plan Related to Vitre ous degeneration, right eye Impression/Plan Related to Other specified retinal disorders Impression/Plan Related to Age-r elated nuclear cataract, bilateral Return in [address] Moreno for follow up exam and OCT. 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 Will monitor. Related to Other specified retinal disorders Impression/Plan - Po sterior vitreous detachment was noted on examination today and explained to the patient. There is no evidence of a retinal tear, break, or detachment. The patient was cautioned on the signs and symptoms of retinal detachment and will call immediately with new symptoms or vision loss. Related to Vitreous degeneration, right eye Impression/Plan - Re gular follow up appointments with the patient's comprehensive eye doctor were recommended to monitor the patients cataract for progression. Referral for surgical intervention is not indicated at this time. Related to Age-related nuclear cataract, bilateral Follow up - Return i n [address] Moreno for follow up exam and OCT. Related to Retinal neovascularization, unspecified, right eye Impression/Plan - RI GHT EYE: Inactive idiopathic choroidal neovascularization noted on examination today. No signs of active disease seen on examination or testing. No treatment is indicated today. Visual potential limited by associated central scarring. Will continue to monitor. Patient advised to call with any changes prior to her next scheduled appointment. Related to Retinal neovascularization, unspecified, right eye Return in 1 year kain Moreno for follow up exam and OCT. Related to Retinal neovascularization, unspecified, right eye Impression/Plan - Po sterior vitreous detachment was noted on examination today and explained to the patient. There is no evidence of a retinal tear, break, or detachment. The patient was cautioned on the signs and symptoms of retinal detachment and will call immediately with new symptoms or vision loss. Related to Vitreous degeneration, right eye Impression/Plan - Re gular follow up appointments with the patient's comprehensive eye doctor were recommended to monitor the patients cataract for progression. Referral for surgical intervention is not indicated at this time. Related to Age-related nuclear cataract, bilateral Impression/Plan - RI GHT EYE: Vision limiting factor. 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 No signs of active disease seen on examination or testing. No treatment is indicated today. Visual potential limited by associated central scarring. Will continue to monitor. Patient advised to call with any changes prior to her next scheduled appointment. Related to Retinal neovascularization, unspecified, right eye Follow up - Return i n [address] Moreno for follow up exam and OCT. Related to Retinal neovascularization, unspecified, right eye - Will continue to m onitor and observe condition and or symptoms. Related to Other specified retinal disorders - Posterior vitreous detachment was noted on examination today and explained to the patient. There is no evidence of a retinal tear, break or detachment. Related to Vitreous degeneration, right eye - Regular follow up appointments with the patient's comprehensive eye doctor were recommended to monitor the patients cataract for progression. Referral for surgical intervention is not indicated at this time. Related to Age-related nuclear cataract, bilateral - Treated choroidal neovascularization noted on examination today. No signs of active disease seen on examination or testing. No treatment is indicated today. Visual potential limilted by associated central scarring. Will continue to monitor. Patient advised to call with any changes prior to her next scheduled appointment. Related to Retinal neovascularization, unspecified, right eye - Return in [address] Moreno for follow up exam with OCT. Related to Retinal neovascularization, unspecified, right eye - OD: Vision limited d/t macular scar. OS: Not affecting vision. Related to Senile nuclear sclerosis - Macular scar with no active CNVM was noted changes was seen on today's clinical and diagnostic testing. Will continue to monitor and observe. Related to Other macular scars of retina - Return in [address] Moreno for follow up exam with OCT. Related to Other macular scars of retina - There is no eviden ce of a retinal tear, break or detachment. Will continue to monitor. Related to Vitreous degeneration - Will continue to m onitor and observe condition and or symptoms. Related to Retinal exudates and deposits - Return in [address] Moreno for follow up and OCT. Related to Other macular scars of retina - Macular Scar with no active CNVM was noted on examination and testing today and discussed with patient. Will continue to monitor and observe. Related to Other macular scars of retina - Discussed diagnosi s in detail with patient. No treatment is required at this time. Will continue to monitor and observe condition and or symptoms. Related to Retinal exudates and deposits - There is no eviden ce of a retinal tear, break or detachment. Will continue to monitor. Related to Vitreous degeneration - Will continue to m onitor and observe condition and or symptoms. 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 - The progression of cataracts was noted on examination today and discussed with the patient. It is reasonable from a retinal standpoint that the patient return to their referring physician for further evaluation of the cataracts. Related to Senile nuclear sclerosis - Return in [address] Moreno for follow up and OCT. Related to Other macular scars of retina Vitreous degeneratio n OU Condition: mild, chronic, stable. - Posterior vitreous detachment was noted on examination today and explained to the patient. There is no evidence of a retinal tear, break or detachment. Signs and symptoms of retinal detachment and tears were discussed in detail. Patient instructed to call the office immediately if any symptoms noted. Recommend the patient return to office for follow up. Appropriate follow up with primary eye career consultant was recommended. Related to Vitreous degeneration Retinal exudates and deposits OD Condition: mild, chronic, stable. - Discussed diagnosis in detail with patient. No treatment is required at this time. Will continue to observe condition and or symptoms. Related to Retinal exudates and deposits Other macular scars of retina OD Condition: established, stable. - Macular Scar with no active CNVM was noted on examination and testing today. Will continue to monitor and observe. Related to Other macular scars of retina [facility] Work Phone: [phone] Telephone encounter Note* Telephone Encounter - Nicky Serrano, RN - 10/07/2024 9:01 AM EDT Images from the original note were not included. Most recent Rheumatology visit: 06/26/2024 (with Harish Paula) Last Bone Density on file: None on file Rheumatology Care Team: None on file Recent Office Visits - This Specialty 06/26/2024 Rheumatoid arthritis involving multiple sites with positive rheumatoid factor (HCC) Rheumatology Harish Paula MD 03/20/2024 Rheumatoid arthritis involving multiple sites with positive rheumatoid factor (HCC) Rheumatology Harish Paula MD 11/15/2023 Rheumatoid arthritis involving multiple sites with positive rheumatoid factor (HCC) Rheumatology Harish Paula MD Upcoming Rheumatology Appointments - Next 365 Days Visit Type Date Time Department [facility] 10/16/2024 1:20 PM [facility] CBC: Latest Ref Rng & Units 03/20/2024 06/26/2024 CBC WBC 3.70 - 11.00 k/uL 5.96 9.17 Hemoglobin 11.5 - 15.5 g/dL 15.0 15.1 Hematocrit 36.0 - 46.0 % 46.3 45.8 Platelet Count 150 - 400 k/uL 220 205 Abs Neut (ANC) 1.45 - 7.50 k/uL 3.69 6.68 Abs Lymph 1.00 - 4.00 k/uL 1.64 1.71 Vitamin D: None on file in the last 6 months LFT: Latest Ref Rng & Units 03/20/2024 06/26/2024 CMP Sodium 136 - 144 mmol/L 141 140 Potassium 3.7 - 5.1 mmol/L 5.2 4.5 Chloride 98 - 107 mmol/L 103 102 CO2 22 - 30 mmol/L 30 24 Glucose 74 - 99 mg/dL 88 102 BUN 7 - 21 mg/dL 11 13 Creatinine 0.58 - 0.96 mg/dL 0.82 0.79 Calcium 8.5 - 10.2 mg/dL 10.0 9.5 AST 13 - 35 U/L 16 18 ALT 7 - 38 U/L 13 15 Alkaline Phosphatase 34 - 123 U/L 71 76 Hepatic Function: Creatinine: Latest Ref Rng & Units 03/20/2024 06/26/2024 Creatinine Creatinine 0.58 - 0.96 mg/dL 0.82 0.79 ESR/CRP: Latest Ref Rng & Units 11/09/2022 06/26/2024 ESR, WSR WSR 0 - 20 mm/hr 6 8 Latest Ref Rng & Units 11/09/2022 06/26/2024 CRP CRP <0.9 mg/dL <0.3 0.8 Uric Acid: None on file in the last 6 months Open Standing (Multiple Instance) Lab Orders None Open Future (Single Instance) Lab Orders None [facility]03-17-2025 Miscellaneous Notes* Telephone Encounter - Nicky Serrano RN - 10/07/2024 9:01 AM EDT Images from the original note were not included. Most recent Rheumatology visit: 06/26/2024 (with Harish Paula) Last Bone Density on file: None on file Rheumatology Care Team: None on file Recent Office Visits - This Specialty 06/26/2024 Rheumatoid arthritis involving multiple sites with positive rheumatoid factor (HCC) Rheumatology Harish Paula MD 03/20/2024 Rheumatoid arthritis involving multiple sites with positive rheumatoid factor (HCC) Rheumatology Harish Paula MD 11/15/2023 Rheumatoid arthritis involving multiple sites with positive rheumatoid factor (HCC) Rheumatology Harish Paula MD Upcoming Rheumatology Appointments - Next 365 Days Visit Type Date Time Department [facility] 10/16/2024 1:20 PM [facility] CBC: Latest Ref Rng & Units 03/20/2024 06/26/2024 CBC WBC 3.70 - 11.00 k/uL 5.96 9.17 Hemoglobin 11.5 - 15.5 g/dL 15.0 15.1 Hematocrit 36.0 - 46.0 % 46.3 45.8 Platelet Count 150 - 400 k/uL 220 205 Abs Neut (ANC) 1.45 - 7.50 k/uL 3.69 6.68 Abs Lymph 1.00 - 4.00 k/uL 1.64 1.71 Vitamin D: None on file in the last 6 months LFT: Latest Ref Rng & Units 03/20/2024 06/26/2024 CMP Sodium 136 - 144 mmol/L 141 140 Potassium 3.7 - 5.1 mmol/L 5.2 4.5 Chloride 98 - 107 mmol/L 103 102 CO2 22 - 30 mmol/L 30 24 Glucose 74 - 99 mg/dL 88 102 BUN 7 - 21 mg/dL 11 13 Creatinine 0.58 - 0.96 mg/dL 0.82 0.79 Calcium 8.5 - 10.2 mg/dL 10.0 9.5 AST 13 - 35 U/L 16 18 ALT 7 - 38 U/L 13 15 Alkaline Phosphatase 34 - 123 U/L 71 76 Hepatic Function: Creatinine: Latest Ref Rng & Units 03/20/2024 06/26/2024 Creatinine Creatinine 0.58 - 0.96 mg/dL 0.82 0.79 ESR/CRP: Latest Ref Rng & Units 11/09/2022 06/26/2024 ESR, WSR WSR 0 - 20 mm/hr 6 8 Latest Ref Rng & Units 11/09/2022 06/26/2024 CRP CRP <0.9 mg/dL <0.3 0.8 Uric Acid: None on file in the last 6 months Open Standing (Multiple Instance) Lab Orders None Open Future (Single Instance) Lab Orders None [facility] NotePatient Education Emergency Medicine Heart Attack A heart attack occurs when blood and oxygen supply to the heart is cut off. A heart attack can cause damage to the heart that cannot be fixed. A heart attack is also called a myocardial infarction, or MT. If you think you are having a heart attack, do not wait to see if the symptoms will go away. Get medical help right away. What are the causes? This condition may be caused by: ??? A fatty substance (plaque) in the blood vessels (arteries). This can block the flow of blood tothe heart. ??? A blood clot in the blood vessels that go to the heart. The blood clot blocks blood flow. ??? An abnormal heartbeat. ??? Some diseases, such as problems in red blood cells (anemia)orproblems in breathing (respiratoryfailure). ??? Tightening (spasm) of a blood vessel that cuts off blood to the heart. ??? A tear in a blood vessel of the heart. Other causes may include: ??? Using drugs such as cocaine or methamphetamine. ??? Low blood pressure. What increases the risk? Aging. The risk gets higher as you get older. ??? Having a personal or family history of chest pain, heart attack, stroke, or narrowing of the arteries in the legs, arms, head, or stomach (peripheral vascular disease). ??? Having taken chemotherapy or immune-suppressing medicines. ??? Being male. ??? Being overweight or obese. ??? Having any of these conditions: ? High blood pressure. ? High cholesterol. ? Diabetes. ??? Making lifestyle choices such as: ? Drinking too much alcohol. ? Not getting regular exercise. ? Smoking. What are the signs or symptoms? Chest pain. It may feel like: ? Crushing or squeezing. ? Tightness, pressure, fullness, or heaviness. ??? Pain in the arm, neck, jaw, back, or upper body. ??? Heartburn. ??? Upset stomach (indigestion). ??? Shortness of breath. ??? Feeling like you may vomit (nauseous). ??? Cold sweats. ??? Sudden light-headedness, dizziness, or passing out. ??? Feeling tired. How is this treated? A heart attack must be treated as soon as possible. Treatment may include: ??? Medicines to: ? Break up or dissolve blood clots. ? Thin your blood and help prevent blood clots. ? Treat blood pressure. ? Improve blood flow to the heart. ? Reduce pain. ? Reduce cholesterol. ??? Procedures to widen a blocked artery and keep it open. ??? Open heart surgery. ??? Making your heart strong again (cardiac rehabilitation) through exercise, education, and counseling. Follow these instructions at home: Medicines ??? Take [id number] and prescription medicines only as told by your doctor. ??? Do not take these medicines unless your doctor says it is okay: ? NSAIDs, such as ibuprofen, naproxen, or celecoxib. ? Any vitamins or supplements. ? Hormone replacement therapy that has estrogen with or without progestin. ??? If you are taking blood thinners: ? Talk with your doctor before taking any medicines that have aspirin or NSAIDs, such as ibuprofen. ? Take medicines exactly as told. Take them at the same time each day. ? Avoid doing things that could hurt or bruise you. Take action to prevent falls. ? Wear an alert bracelet or carry a card that shows you are taking blood thinners. Lifestyle ??? Do not smoke or use any products that contain nicotine or tobacco. If you need help quitting, ask your doctor. ??? Avoid secondhand smoke. ??? Exercise regularly. Ask your doctor about a cardiac rehab program. ??? Eat heart-healthy foods. Your doctor will tell you what foods to eat. ??? Stay at a healthy weight. ??? Learn ways to lower your stress level. ??? Do not use illegal drugs. Alcohol use ??? Do not drink alcohol if: ? Your doctor tells you not to drink. ? You are , may be , or are planning to become . ??? If you drink alcohol: ? Limit how much you have to: ? 0?1 drink a day for women. ? 0?2 drinks a day for men. ? Know how much alcohol is in your drink. In the [place] one drink equals one 12 oz bottle of beer (355 mL), one 5 oz glass of wine (148 mL), or one 1? oz glass of hard liquor (44 mL). General instructions ??? Work with your doctor to treat other problems you may have, such as diabetes or high blood pressure. ??? Get screened for depression. Get treatment if needed. ??? Keep your vaccines up to date. Get the flu shot (influenza vaccine) every year. ??? Keep all follow-up visits. Contact a doctor if: ??? You feel very sad. ??? You have trouble doing your daily activities. ??? You get light-headed or dizzy. Get help right away if: ??? You have sudden, unexplained discomfort in your chest, arms, back, neck, jaw, or upper body. ??? You have shortness of breath. ??? You have sudden sweating or clammy skin. ??? You feel like you may vomit or you vomit. ??? You fe (more content not included)...[facility]02-03-2025 Evaluation note* Type Assessment Date assessment Exuda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 degn, bi, with actv chrdl neovas impression Exudative age-rel mc lr degn, bi, with actv chrdl neovas: H35.3231. Bilateral [facility] Work Phone: [phone] 156-901902-03-2025 History of Present illness Narrative* Encounter Date Complaint History Of Prese nt Illness Exudative ARMD The 69 year old female presents for 8 week evaluation of Exudative ARMD in the right and left eyes. Patient states that she has side vision out of her right eye. Patient states that she has some small floaters in her left eye, not there all the time. Patient denies any flashes of light. AMD The 69 year old female presents for evaluation of AMD in the right and left eyes. Patient states no changes in vision since last visit. Patient denies new floaters, flashes of light or ocular pain. AMD The 69 year old female presents for treatment 3 of 3 for AMD in the left eye. Patient states vision stable, patient states seeing several floaters since last treatment. Patient denies any new onset of flashes or ocular pain. AMD The 69 year old female presents for treatment of AMD in the left eye. Patient states vision stable, patient does state occassional floaters, denies any new onset of flashes or ocular pain. AMD The 68 year old female presents for treatment of AMD in the left eye. Patient states vision stable, denies any new onset of flashes, floaters, or ocular pain. RNV The 68 year old female presents for treatment of RNV in the left eye. PT states that vision has been the same and denies flashes of light. Pt states that she had a shower of white dots yesterday which came and went. Pt denies ocular pain. retinal neovascularization The 8 6 year old patient presents for treatment of retinal neovascularization in the left eye. Patient reports worsened vision in her right eye since her last exam 7 weeks ago. Patient states her peripheral vision is mildly blurry on and off. Patient reports stable vision in her left eye. Patient denies flashes but experiences floaters in her left eye and occasional eye pain in her right eye. retinal neovascularization The 8 6 year old patient presents for evaluation of retinal neovascularization in the left eye. Patient reports worsened vision in her left eye since her last appointment due to mild blurriness. Patient reports stable vision in her right eye. Patient denies flashes but experiences floaters and eye pain in her left eye. Patient complains of itchy eyes. CNV The 68 year old patient presents for treatment and management of CNV in the left eye. CNV The 68 year old patient presents for treatment of CNV in the left eye. Patient states stable vision since last visit. Patient states she has a bad stye in left eye and has been using hot compress for the last three weeks. Patient reports she sometimes sees a black floater in left eye. Patient states right and left eye patino. retinal neovascularization The 8 6 year old patient presents for treatment of retinal neovascularization in the left eye. Patient reports no new visual changes since her last appointment. Patient reports a couple weeks ago she was experiencing extremely sharp pain in her right eye. Patient denies flashes but experiences eye pain and floaters in both eyes. Patient complains of dry eye in both eyes. Retinal neovascularization The 8 6 year old female presents for 7 week evaluation of Retinal neovascularization in the left eye. Patient states that her vision seems the same but she does complains about dots in her vision. Patient denies any flashes of light. retinal neovascularization The 8 6 year old female presents for 6 week evaluation of retinal neovascularization in the left eye. Patient states that her vision gets blurry from time to time and she takes her glassses off to see better. PAtient states floaters come and go. PAtient also states the floaters are not aas bad as they had been. PAtient denies any flashe of light. 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 Retinal neovascularization The 8 5 year old female presents for 5 weeks evaluation of Retinal neovascularization in the left eye. Patient states she has a lot of floaters but she denies any flashes of light. retinal neovascularization The 8 5 year old female presents for evaluation of retinal neovascularization in the right eye. Patient reports when shutting OD, she has noticed reading is easier. When looking with OU, patient complains vision is blurry. Negative flashes and eye pain. Continued floaters. No other concerns at this time. Retinal Neovasculari zation unspecified The 67 year old female presents for urgent evaluation . Patient states that she saw someone from her eye doctors that told patient she had swelling in her right eye and that she needs to be seen as soon as possible. Patient states she will be having cataract surgery on the in her left eye. Patient denies any floaters or flashes of light in her right eye. Retinal neovascularization The 8 2 year old female presents for retinal neovascularization, unspecified in the right eye. Difficulty reading The patient r eports difficulty reading in the left eye since last visit about 1 year(s) ago. It occurs constantly. It affects both near and distance vision. In addition, the condition is associated with daily activities and chores. Patient reports intermittent floaters not affecting the vision. Patient denies flashes. Patient reports no vision change in the right eye. stable The patient stat es her vision has been stable in both eyes in the past year. It affects both near and far vision. Patient states she occasionally notices black dots in her vision. Patient denies eye pain and flashes. retinal neovascularization The 8 1 year old female presents for evaluation of retinal neovascularization in the right eye. burning and tearing The patient reports burning and tearing in the right > left. It started about 3 months ago . The onset was progressive. It affects near vision. The symptom is constant. The condition is moderate. In addition, the condition is associated with daily activity and chores. The patient denies eye pain, flashes. retinal neovascularization The 8 0 year old female presents for evaluation of retinal neovascularization in the right eye. blurry vision The patient repo rts blurry vision in the left eye. It started about 6 months ago. The onset was gradual. It affects distance vision. The symptom is constant. The condition is mild. In addition, the condition is associated with daily activity and chores. retinal neovascularization The 7 9 year old female presents for evaluation of retinal neovascularization in the right eye. black floaters The patient repo rts black floaters in the left eye. It started about 8 months ago. The onset was sudden. Vision is not affected. The symptom is constant. The condition is mild. 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 decreased vision The patient rep orts mild decreased distant vision in both eyes x 6 months. Feels this has gradually decreased but vision insurance ran out and will get glasses checked once she is able to. Does still notice occasional flashing temporal at night in right eye but no change since last visit. POHS The 60 year old female presents for evaluation of POHS in the right eye. flashing light The patient comp lains of flashing light in the right eye temporal peripheral vision. It started about 2 years ago. It affects both near and far vision. The symptom is intermittent. It occurs with no pattern. The condition is not any better. The patient denies change in vision or decreased vision. She occasionally notes a sharp pain. The right eye has had poor vision for a while now. retinal eval This 59 year old diabetic female presents for evaluation of POHS. Monocular patient. Macular Scars The 58 years old female presents for evaluation of Macular Scars in the right eye. [facility] Work Phone: [phone] Instructions* Date Instruction Additional Infor elsi Impression/Plan Related 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, bi, with actv chrdl neovas Impression/Plan 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, right eye Impression/Plan Related to Prese nce of intraocular lens Impression/Plan Related 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, bi, with actv chrdl neovas Return 4 weeks DFE/OCT Related t o Exuda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 degn, bi, with actv chrdl neovas Impression/Plan Related 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, bi, with actv chrdl neovas Impression/Plan Related 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, bi, with actv chrdl neovas Impression/Plan Related 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, bi, with actv chrdl neovas Impression/Plan Related 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, bi, with actv chrdl neovas Impression/Plan Related to Prese nce of intraocular lens Impression/Plan 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, right eye Impression/Plan 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, left Impression/Plan 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, left Impression/Plan 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, left Impression/Plan 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, left Impression/Plan 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, left Impression/Plan 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, left Impression/Plan 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, left Impression/Plan 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, left -RTC 4 wks for IO AVN OS w/ OCT 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, left Impression/Plan 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, left Impression/Plan Related to Retin al neovascularization, unspecified, right eye Impression/Plan 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, left Impression/Plan Related to Prese nce of intraocular lens Impression/Plan 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, right eye Impression/Plan 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, right eye Nov-14-2022 Impression/Plan Related to Type 2 diabetes mellitus without complications Impression/Plan Related to Age-r elated nuclear cataract, bilateral Impression/Plan Related to Vitre ous degeneration, right eye Impression/Plan Related to Retin al neovascularization, unspecified, right eye Return in 1 year kain Moreno MD for follow up and OCT Related to Retinal neovascularization, unspecified, right eye Impression/Plan Related to Type 2 diabetes mellitus without complications Impression/Plan Related to Age-r elated nuclear cataract, bilateral Impression/Plan Related to Vitre ous degeneration, right eye Impression/Plan Related to Retin al neovascularization, unspecified, right eye Return in 1 year wit judy Moreno for follow up exam and OCT. Related to Retinal neovascularization, unspecified, right eye Impression/Plan Related to Retin al neovascularization, unspecified, right eye Impression/Plan Related to Vitre ous degeneration, right eye Impression/Plan Related to Other specified retinal disorders Impression/Plan Related to Age-r elated nuclear cataract, bilateral Return in 1 year kain Moreno for follow up exam and OCT. Related to Retinal neovascularization, unspecified, right eye Impression/Plan - RI GHT EYE: Inactive idiopathic choroidal neovascularization noted on examination today. No signs of active disease seen on examination or testing. No treatment is indicated today. Visual potential limited by associated central scarring. Will continue to monitor. Patient advised to call with any changes prior to her next scheduled appointment. Related to Retinal neovascularization, unspecified, right eye Follow up - Return i n [address] Moreno for follow up exam and OCT. Related to Retinal neovascularization, unspecified, right eye Impression/Plan - Re gular follow up appointments with the patient's comprehensive eye doctor were recommended to monitor the patients cataract for progression. Referral for surgical intervention is not indicated at this time. Related to Age-related nuclear cataract, bilateral Impression/Plan - Po sterior vitreous detachment was noted on examination today and explained to the patient. There is no evidence of a retinal tear, break, or detachment. The patient was cautioned on the signs and symptoms of retinal detachment and will call immediately with new symptoms or vision loss. 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 Will monitor. Related to Other specified retinal disorders Return in [address] Moreno for follow up exam and OCT. Related to Retinal neovascularization, unspecified, right eye Impression/Plan - Po sterior vitreous detachment was noted on examination today and explained to the patient. There is no evidence of a retinal tear, break, or detachment. The patient was cautioned on the signs and symptoms of retinal detachment and will call immediately with new symptoms or vision loss. Related to Vitreous degeneration, right eye Impression/Plan - Re gular follow up appointments with the patient's comprehensive eye doctor were recommended to monitor the patients cataract for progression. Referral for surgical intervention is not indicated at this time. Related to Age-related nuclear cataract, bilateral Impression/Plan - RI GHT EYE: Vision limiting factor. 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 No signs of active disease seen on examination or testing. No treatment is indicated today. Visual potential limited by associated central scarring. Will continue to monitor. Patient advised to call with any changes prior to her next scheduled appointment. Related to Retinal neovascularization, unspecified, right eye Follow up - Return i n [address] Moreno for follow up exam and OCT. Related to Retinal neovascularization, unspecified, right eye - Regular follow up appointments with the patient's comprehensive eye doctor were recommended to monitor the patients cataract for progression. Referral for surgical intervention is not indicated at this time. Related to Age-related nuclear cataract, bilateral - Posterior vitreous detachment was noted on examination today and explained to the patient. There is no evidence of a retinal tear, break or detachment. Related to Vitreous degeneration, right eye - Will continue to m onitor and observe condition and or symptoms. Related to Other specified retinal disorders - Treated choroidal neovascularization noted on examination today. No signs of active disease seen on examination or testing. No treatment is indicated today. Visual potential limilted by associated central scarring. Will continue to monitor. Patient advised to call with any changes prior to her next scheduled appointment. Related to Retinal neovascularization, unspecified, right eye - Return in 1 year w [facility] Dr. Moreno for follow up exam with OCT. Related to Retinal neovascularization, unspecified, right eye - OD: Vision limited d/t macular scar. OS: Not affecting vision. Related to Senile nuclear sclerosis - Macular scar with no active CNVM was noted changes was seen on today's clinical and diagnostic testing. Will continue to monitor and observe. Related to Other macular scars of retina - Return in [address] Moreno for follow up exam with OCT. Related to Other macular scars of retina - There is no eviden ce of a retinal tear, break or detachment. Will continue to monitor. Related to Vitreous degeneration - Will continue to m onitor and observe condition and or symptoms. Related to Retinal exudates and deposits - Discussed diagnosi s in detail with patient. No treatment is required at this time. Will continue to monitor and observe condition and or symptoms. Related to Retinal exudates and deposits - There is no eviden ce of a retinal tear, break or detachment. Will continue to monitor. Related to Vitreous degeneration - Return in 1 year w [facility] Dr. Moreno for follow up and OCT. Related to Other macular scars of retina - Will continue to m onitor and observe condition and or symptoms. Related to Senile nuclear sclerosis - Macular Scar with no active CNVM was noted on examination and testing today and discussed with patient. Will continue to monitor and observe. 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 - The progression of cataracts was noted on examination today and discussed with the patient. It is reasonable from a retinal standpoint that the patient return to their referring physician for further evaluation of the cataracts. Related to Senile nuclear sclerosis - Return in [address] Moreno for follow up and OCT. Related to Other macular scars of retina Vitreous degeneratio n OU Condition: mild, chronic, stable. - Posterior vitreous detachment was noted on examination today and explained to the patient. There is no evidence of a retinal tear, break or detachment. Signs and symptoms of retinal detachment and tears were discussed in detail. Patient instructed to call the office immediately if any symptoms noted. Recommend the patient return to office for follow up. Appropriate follow up with primary eye career consultant was recommended. Related to Vitreous degeneration Retinal exudates and deposits OD Condition: mild, chronic, stable. - Discussed diagnosis in detail with patient. No treatment is required at this time. Will continue to observe condition and or symptoms. Related to Retinal exudates and deposits Other macular scars of retina OD Condition: established, stable. - Macular Scar with no active CNVM was noted on examination and testing today. Will continue to monitor and observe. Related to Other macular scars of retina [facility] Work Phone: 1([phone]) 596-167601-02-2025 Evaluation note* Type Assessment Date assessment Exuda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 degn, bi, with actv chrdl neovas impression Exudative age-rel mc lr degn, bi, with actv chrdl neovas: H35.3231. Bilateral assessment Combined forms of age-related ca taract, right eye impression Combined forms of ag e-related cataract, right eye: H25.811. Right. Condition: moderate assessment Presence of intraocular lens Jul impression Presence of intraocular lens: Z9 6.1. Left. Condition: stable [facility] Work Phone: 1([phone] 116-903001-02-2025 History of Present illness Narrative* Encounter Date Complaint History Of Prese nt Illness AMD The 69 year old female presents for evaluation of AMD in the right and left eyes. Patient states no changes in vision since last visit. Patient denies new floaters, flashes of light or ocular pain. AMD The 69 year old female presents for treatment 3 of 3 for AMD in the left eye. Patient states vision stable, patient states seeing several floaters since last treatment. Patient denies any new onset of flashes or ocular pain. Oct-30-2024 AMD The 69 year old female presents for treatment of AMD in the left eye. Patient states vision stable, patient does state occassional floaters, denies any new onset of flashes or ocular pain. AMD The 68 year old female presents for treatment of AMD in the left eye. Patient states vision stable, denies any new onset of flashes, floaters, or ocular pain. RNV The 68 year old female presents for treatment of RNV in the left eye. PT states that vision has been the same and denies flashes of light. Pt states that she had a shower of white dots yesterday which came and went. Pt denies ocular pain. retinal neovascularization The 8 6 year old patient presents for treatment of retinal neovascularization in the left eye. Patient reports worsened vision in her right eye since her last exam 7 weeks ago. Patient states her peripheral vision is mildly blurry on and off. Patient reports stable vision in her left eye. Patient denies flashes but experiences floaters in her left eye and occasional eye pain in her right eye. retinal neovascularization The 8 6 year old patient presents for evaluation of retinal neovascularization in the left eye. Patient reports worsened vision in her left eye since her last appointment due to mild blurriness. Patient reports stable vision in her right eye. Patient denies flashes but experiences floaters and eye pain in her left eye. Patient complains of itchy eyes. CNV The 68 year old patient presents for treatment and management of CNV in the left eye. CNV The 68 year old patient presents for treatment of CNV in the left eye. Patient states stable vision since last visit. Patient states she has a bad stye in left eye and has been using hot compress for the last three weeks. Patient reports she sometimes sees a black floater in left eye. Patient states right and left eye patino. retinal neovascularization The 8 6 year old patient presents for treatment of retinal neovascularization in the left eye. Patient reports no new visual changes since her last appointment. Patient reports a couple weeks ago she was experiencing extremely sharp pain in her right eye. Patient denies flashes but experiences eye pain and floaters in both eyes. Patient complains of dry eye in both eyes. Retinal neovascularization The 8 6 year old female presents for 7 week evaluation of Retinal neovascularization in the left eye. Patient states that her vision seems the same but she does complains about dots in her vision. Patient denies any flashes of light. retinal neovascularization The 8 6 year old female presents for 6 week evaluation of retinal neovascularization in the left eye. Patient states that her vision gets blurry from time to time and she takes her glassses off to see better. PAtient states floaters come and go. PAtient also states the floaters are not aas bad as they had been. PAtient denies any flashe of light. 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 Retinal neovascularization The 6 5 year old female presents for 5 weeks evaluation of Retinal neovascularization in the left eye. Patient states she has a lot of floaters but she denies any flashes of light. retinal neovascularization The 6 5 year old female presents for evaluation of retinal neovascularization in the right eye. Patient reports when shutting OD, she has noticed reading is easier. When looking with OU, patient complains vision is blurry. Negative flashes and eye pain. Continued floaters. No other concerns at this time. Retinal Neovasculari zation unspecified The 67 year old female presents for urgent evaluation . Patient states that she saw someone from her eye doctors that told patient she had swelling in her right eye and that she needs to be seen as soon as possible. Patient states she will be having cataract surgery on the in her left eye. Patient denies any floaters or flashes of light in her right eye. Retinal neovascularization The 8 2 year old female presents for retinal neovascularization, unspecified in the right eye. Difficulty reading The patient r eports difficulty reading in the left eye since last visit about 1 year(s) ago. It occurs constantly. It affects both near and distance vision. In addition, the condition is associated with daily activities and chores. Patient reports intermittent floaters not affecting the vision. Patient denies flashes. Patient reports no vision change in the right eye. stable The patient stat es her vision has been stable in both eyes in the past year. It affects both near and far vision. Patient states she occasionally notices black dots in her vision. Patient denies eye pain and flashes. retinal neovascularization The 8 1 year old female presents for evaluation of retinal neovascularization in the right eye. burning and tearing The patient reports burning and tearing in the right > left. It started about 3 months ago . The onset was progressive. It affects near vision. The symptom is constant. The condition is moderate. In addition, the condition is associated with daily activity and chores. The patient denies eye pain, flashes. retinal neovascularization The 8 0 year old female presents for evaluation of retinal neovascularization in the right eye. blurry vision The patient repo rts blurry vision in the left eye. It started about 6 months ago. The onset was gradual. It affects distance vision. The symptom is constant. The condition is mild. In addition, the condition is associated with daily activity and chores. retinal neovascularization The 7 9 year old female presents for evaluation of retinal neovascularization in the right eye. black floaters The patient repo rts black floaters in the left eye. It started about 8 months ago. The onset was sudden. Vision is not affected. The symptom is constant. The condition is mild. 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 decreased vision The patient rep orts mild decreased distant vision in both eyes x 6 months. Feels this has gradually decreased but vision insurance ran out and will get glasses checked once she is able to. Does still notice occasional flashing temporal at night in right eye but no change since last visit. POHS The 60 year old female presents for evaluation of POHS in the right eye. flashing light The patient comp lains of flashing light in the right eye temporal peripheral vision. It started about 2 years ago. It affects both near and far vision. The symptom is intermittent. It occurs with no pattern. The condition is not any better. The patient denies change in vision or decreased vision. She occasionally notes a sharp pain. The right eye has had poor vision for a while now. retinal eval This 59 year old diabetic female presents for evaluation of POHS. Monocular patient. Macular Scars The 58 years old female presents for evaluation of Macular Scars in the right eye. 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, bi, with actv chrdl neovas Impression/Plan 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, right eye Impression/Plan Related to Prese nce of intraocular lens Return 4 weeks DFE/OCT Related t o Exuda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 degn, bi, with actv chrdl neovas Impression/Plan Related 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, bi, with actv chrdl neovas Impression/Plan Related 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, bi, with actv chrdl neovas Impression/Plan Related 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, bi, with actv chrdl neovas Impression/Plan Related 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, bi, with actv chrdl neovas Impression/Plan Related to Prese nce of intraocular lens Impression/Plan 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, right eye Impression/Plan 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, left Impression/Plan 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, left Impression/Plan 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, left Impression/Plan 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, left Impression/Plan 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, left Impression/Plan 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, left Impression/Plan 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, left Impression/Plan 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, left -RTC 4 wks for IO AVN OS w/ OCT 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, left Impression/Plan 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, left Impression/Plan Related to Retin al neovascularization, unspecified, right eye Impression/Plan 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, left Impression/Plan Related to Prese nce of intraocular lens Impression/Plan 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, right eye Impression/Plan 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, right eye Impression/Plan Related to Type 2 diabetes mellitus without complications Impression/Plan Related to Age-r elated nuclear cataract, bilateral Impression/Plan Related to Vitre ous degeneration, right eye Impression/Plan Related to Retin al neovascularization, unspecified, right eye Return in 1 year kain Moreno MD for follow up and OCT Related to Retinal neovascularization, unspecified, right eye Impression/Plan Related to Type 2 diabetes mellitus without complications Impression/Plan Related to Age-r elated nuclear cataract, bilateral Impression/Plan Related to Vitre ous degeneration, right eye Impression/Plan Related to Retin al neovascularization, unspecified, right eye Return in 1 year kain Moreno for follow up exam and OCT. Related to Retinal neovascularization, unspecified, right eye Impression/Plan Related to Retin al neovascularization, unspecified, right eye Impression/Plan Related to Vitre ous degeneration, right eye Impression/Plan Related to Other specified retinal disorders Impression/Plan Related to Age-r elated nuclear cataract, bilateral Return in 1 year kain Moreno for follow up exam and OCT. Related to Retinal neovascularization, unspecified, right eye Impression/Plan - RI GHT EYE: Inactive idiopathic choroidal neovascularization noted on examination today. No signs of active disease seen on examination or testing. No treatment is indicated today. Visual potential limited by associated central scarring. Will continue to monitor. Patient advised to call with any changes prior to her next scheduled appointment. Related to Retinal neovascularization, unspecified, right eye Follow up - Return i n [address] Moreno for follow up exam and OCT. Related to Retinal neovascularization, unspecified, right eye Impression/Plan - Re gular follow up appointments with the patient's comprehensive eye doctor were recommended to monitor the patients cataract for progression. Referral for surgical intervention is not indicated at this time. Related to Age-related nuclear cataract, bilateral Impression/Plan - Po sterior vitreous detachment was noted on examination today and explained to the patient. There is no evidence of a retinal tear, break, or detachment. The patient was cautioned on the signs and symptoms of retinal detachment and will call immediately with new symptoms or vision loss. 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 Will monitor. Related to Other specified retinal disorders Return in [address] Moreno for follow up exam and OCT. Related to Retinal neovascularization, unspecified, right eye Impression/Plan - Po sterior vitreous detachment was noted on examination today and explained to the patient. There is no evidence of a retinal tear, break, or detachment. The patient was cautioned on the signs and symptoms of retinal detachment and will call immediately with new symptoms or vision loss. Related to Vitreous degeneration, right eye Impression/Plan - Re gular follow up appointments with the patient's comprehensive eye doctor were recommended to monitor the patients cataract for progression. Referral for surgical intervention is not indicated at this time. Related to Age-related nuclear cataract, bilateral Impression/Plan - RI GHT EYE: Vision limiting factor. 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 No signs of active disease seen on examination or testing. No treatment is indicated today. Visual potential limited by associated central scarring. Will continue to monitor. Patient advised to call with any changes prior to her next scheduled appointment. Related to Retinal neovascularization, unspecified, right eye Follow up - Return i n [address] Moreno for follow up exam and OCT. Related to Retinal neovascularization, unspecified, right eye - Regular follow up appointments with the patient's comprehensive eye doctor were recommended to monitor the patients cataract for progression. Referral for surgical intervention is not indicated at this time. Related to Age-related nuclear cataract, bilateral - Posterior vitreous detachment was noted on examination today and explained to the patient. There is no evidence of a retinal tear, break or detachment. Related to Vitreous degeneration, right eye - Will continue to m onitor and observe condition and or symptoms. Related to Other specified retinal disorders - Treated choroidal neovascularization noted on examination today. No signs of active disease seen on examination or testing. No treatment is indicated today. Visual potential limilted by associated central scarring. Will continue to monitor. Patient advised to call with any changes prior to her next scheduled appointment. Related to Retinal neovascularization, unspecified, right eye - Return in 1 year w [facility] Dr. Moreno for follow up exam with OCT. Related to Retinal neovascularization, unspecified, right eye - OD: Vision limited d/t macular scar. OS: Not affecting vision. Related to Senile nuclear sclerosis - Macular scar with no active CNVM was noted changes was seen on today's clinical and diagnostic testing. Will continue to monitor and observe. Related to Other macular scars of retina - Return in 1 year w [facility] Dr. Moreno for follow up exam with OCT. Related to Other macular scars of retina - There is no eviden ce of a retinal tear, break or detachment. Will continue to monitor. Related to Vitreous degeneration - Will continue to m onitor and observe condition and or symptoms. Related to Retinal exudates and deposits - Discussed diagnosi s in detail with patient. No treatment is required at this time. Will continue to monitor and observe condition and or symptoms. Related to Retinal exudates and deposits - There is no eviden ce of a retinal tear, break or detachment. Will continue to monitor. Related to Vitreous degeneration - Return in 1 year w [facility] Dr. Moreno for follow up and OCT. Related to Other macular scars of retina - Will continue to m onitor and observe condition and or symptoms. Related to Senile nuclear sclerosis - Macular Scar with no active CNVM was noted on examination and testing today and discussed with patient. Will continue to monitor and observe. 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 - The progression of cataracts was noted on examination today and discussed with the patient. It is reasonable from a retinal standpoint that the patient return to their referring physician for further evaluation of the cataracts. Related to Senile nuclear sclerosis - Return in [address] Moreno for follow up and OCT. Related to Other macular scars of retina Vitreous degeneratio n OU Condition: mild, chronic, stable. - Posterior vitreous detachment was noted on examination today and explained to the patient. There is no evidence of a retinal tear, break or detachment. Signs and symptoms of retinal detachment and tears were discussed in detail. Patient instructed to call the office immediately if any symptoms noted. Recommend the patient return to office for follow up. Appropriate follow up with primary eye career consultant was recommended. Related to Vitreous degeneration Retinal exudates and deposits OD Condition: mild, chronic, stable. - Discussed diagnosis in detail with patient. No treatment is required at this time. Will continue to observe condition and or symptoms. Related to Retinal exudates and deposits Other macular scars of retina OD Condition: established, stable. - Macular Scar with no active CNVM was noted on examination and testing today. Will continue to monitor and observe. Related to Other macular scars of retina [facility] Work Phone: [phone]) 112-847612-04-2024 NoteHNO ID: [id number] Author: HARISH PAULA MD Service: ? Author Type: Physician Type: Progress Notes Filed: 06/26/2024 13:08 Note Text: Rheumatology Outpatient Clinic Date of Service: 06/26/2024 Patient: Yamile Siddiqui Medical Record: [id number] Primary Care Physician: Aleksander Jimenez MD Referring Provider: SELF Last Rheumatology visit: 03/20/2024 (with Harish Paula) Chief complaint: Follow Up (Left sided groin pain x 1 day) History of Present Illness Yamile Siddiqui is a 69 year old White female with medical history of rheumatoid arthritis, hyperlipidemia, diabetes mellitus, history of tobacco use, Histoplasmosis right eye in ( treated), 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 She is currently taking methotrexate sodium, prednisone. Yamile is both RF - 49 (11/09/2022) and CCP - 275 (11/09/2022) positive. History of rheumatoid arthritis She was being followed by local rheumatology in [place], but her daughter wanted her to get a 2nd opinion at [facility]. Seen by Dr. 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 Patient reports pain over MCPs, PIPs, wrists, [...] Continue folic acid to 2 mg daily 10/2023-no synovitis, No synovitis on exam today Continue methotrexate 20 mg weekly, folic acid to 2 mg daily 02/2024 She reports pain in her hands after activities, otherwise reports doing good with no joint swelling. Continues to have low back pain radiating to left leg. Denies any new symptoms 06/2024-seen with daughter, continues to have low back pain with sciatica, seen by orthopedics, had x-ray of her spine that showed degenerative changes, awaiting MRI. She has noted some swelling over right second MCP had swelling over right wrist that lasted for about 3 days. Denies any other symptoms Sister has lupus, worried if she also has lupus Previous workups 10/2022 RF 49, CCP 275 04/2018 RF [...] lower lumbar spine. Patient-Entered Data PAIN EVALUATION 06/19/2024 1857 Pain Level: 6 Pain Location: Back-Middle Description: Aching;Burning;Cramping;Pressure;Pulsating;Sharp;Shooting;Sore;Stabbing;Stiffnes s;Tenderness;Throbbing;Tightness Duration Units: Hours Frequency: Intermittent Intervention/Comfort measure: Medication;Reposition;Relaxation;Heat PROMIS Assessments 03/17/2024 05/23/2024 06/19/2024 PROMIS Assessments Physical Health Percentile 22 Mental Health Percentile 26 Pain Score 3 Pain Interference Percentile 12 10 Fatigue Percentile 18 24 Physical Function Percentile 18 18 RAPID 3 [place]arr Activities of Daily Living 06/19/2024 7:01 PM 03/17/2024 6:15 PM 11/09/2023 8:49 (more content not included)...[facility] 06-26-2024 History of Present illness Narrative* Harish Paula MD - 06/26/2024 12:29 PM EST Images from the original note were not included. Rheumatology Outpatient Clinic Date of Service: 06/26/2024 Patient: Yamile Siddiqui Medical Record: [id number] Primary Care Physician: Aleksander Jimenez MD Referring Provider: SELF Last Rheumatology visit: 03/20/2024 (with Harish Paula) Chief complaint: Follow Up (Left sided groin pain x 1 day) History of Present Illness Yamile Siddiqui is a 69 year old White female with medical history of rheumatoid arthritis, hyperlipidemia, diabetes mellitus, history of tobaccouse, Histoplasmosis right eye in ( treated), macular degeneration ( blind right eye central vision), presents on 06/26/2024 for an in- person visit for evaluation of Follow Up (Left sided groin pain x 1 day). She is currently taking methotrexate sodium, prednisone. Yamile is both RF - 49 (11/09/2022) and CCP - 275 (11/09/2022) positive. History of rheumatoid arthritis She was being followed by local rheumatology in [place], but her daughter wanted her to get a 2nd opinion at [facility]. Seen by Dr. 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 Patient reports pain over MCPs, PIPs, wrists, [...] Continue folic acid to 2 mg daily 10/2023-no synovitis, No synovitis on exam today Continue methotrexate 20 mg weekly, folic acid to 2 mg daily 02/2024 She reports pain in her hands after activities, otherwise reports doing good with no joint swelling. Continues to have low back pain radiating to left leg. Denies any new symptoms 06/2024-seen with daughter, continues to have low back pain with sciatica, seen by orthopedics, hadx-ray of her spine that showed degenerative changes, awaiting MRI. She has noted some swelling overright second MCP had swelling over right wrist that lasted for about 3 days. Denies any other symptoms Sister has lupus, worried if she also has lupus Previous workups 10/2022 RF 49, CCP 275 04/2018 RF [...] lower lumbar spine. Patient-Entered Data PAIN EVALUATION 06/19/2024 1857 Pain Level: 6 Pain Location: Back-Middle Description: Aching;Burning;Cramping;Pressure;Pulsating;Sharp;Shooting;Sore;Stabbing;Stiffnes s;Tenderness;Throbbing;Tightness Duration Units: Hours Frequency: Intermittent Intervention/Comfort measure: Medication;Reposition;Relaxation;Heat PROMIS Assessments 03/17/2024 05/23/2024 06/19/2024 PROMIS Assessments Physical Health Percentile 22 Mental Health Percentile 26 Pain Score 3 Pain Interference Percentile 12 10 Fatigue Percentile 18 24 Physical Function Percentile 18 18 RAPID 3 Starr Activities of Daily Living 06/19/2024 7:01 PM 03/17/2024 6:15 PM 11/09/2023 8:49 AM Firstanswer obtained - 11/08/2022 11:32 AM Dress self? With SOME difficulty With SOME difficulty With SOME difficulty With SOME difficulty Get in and out of bed? With SOME difficulty With SOME difficulty With SOME difficulty With SOME difficulty Walk outdoors? Without ANY difficulty With SOME difficulty With SOME difficulty [...] Moderate Severity 4.3 - 10.0: High Severity 11/09/2023 03/17/2024 06/19/2024 RAPID-3 Weighed Score RAPID 3 Weighed Score 3.44 (Moderate severity ) 4.44 (High severity ) 4.89 (High severity ) Review of Systems Review of Systems CONSTITUTION: Negative for: Fever and Recent weight change HEENT: Negative for: Nosebleeds, Mouth sores, Trouble swallowing and Dry mouth RESPIRATORY: Negative for: Cough, Shortness of breath and Pain with breathing GASTROINTESTINAL: Negative for: Melena, Diarrhea, Heartburn and Abdominal pain MUSCULOSKELETAL: Positive for: Arthralgias, Myalgias, Muscle weakness, Joint swelling and Morning Joint Stiffness NEUROLOGICAL: Positive for: Headaches, Numbness and Memory loss SKIN: Positive for: Hair loss and Nail changes Negative for: Rash and Skin changes EYES: Positive for: Eye pain, Eye redness, Eye dryness and Visual disturbance CARDIOVASCULAR: Negative for: Chest pain and Leg swelling GENITOURINARY: Negative for: Dysuria and Hematuria HEMATOLOGIC/LYMPHATIC: Negative for: Swollen glands Raynaud's: Denies Dry eyes, denies dry mouth Past Medical History PAST MEDICAL HISTORY Diagnosis Date Hyperlipidemia 07/27/2010 Macular degeneration 07/27/2010 Normal coronary arteries 07/2010 [facility] performed for evaluation chest pain, abnormal stress [...] Social History Tobacco Use Smoking status: Former Current packs/day: 0.00 Average packs/day: 0.8 packs/day for 40.0 years (30.0 ttl pk-yrs) Types: Cigarettes Start date: 07/24/1975 Quit date: 07/24/2015 Years since quittin.9 Smokeless tobacco: Never Tobacco comments: active smoker for about 40 years about 1 pk per day; quit 2015 Substance Use Topics Alcohol use: No Drug use: No Current Medications Current Outpatient Medications Medication Sig fluticasone (FLONASE ALLERGY RELIEF) 50 mcg/actuation nasal spray Use 1 [place] in each nostril two times a day. azelastine 0.1% nasal spray Use 1 [place] in each nostril two times a day. INV SEMAGLUTIDE, OZEMPIC,, 2 MG/1.5 ML, PEN (IRB 20-853) Inject 0.5 mg subcutaneously one time a week. For Investigation Drug Use Only. PI: Dr. Pierce Lee atorvastatin (LIPITOR) 20 mg tablet 1 PO at bedtime metFORMIN (GLUCOPHAGE) 850 mg tablet TAKE 1 TABLET BY MOUTH DAILY WITH BREAKFAST & supper predniSONE (DELTASONE) 5 mg tablet Take 1 tablet by mouth as needed. Take 1 tablet by mouth daily as needed methotrexate 2.5 mg tablet Take 8 tablets by mouth one time a week. folic acid 1 mg tablet Take 2 tablets by mouth once daily. No current facility-administered medications for this visit. Labs Latest Ref Rng & Units 05/10/2023 08/16/2023 11/15/2023 03/20/2024 CBC WBC 3.70 - 11.00 k/uL 6.63 6.86 6.65 5.96 Hemoglobin 11.5 - 15.5 g/dL 14.3 15.4 15.4 15.0 Hematocrit 36.0 - 46.0 % 43.6 45.1 46.8 46.3 Platelet Count 150 - 400 k/uL 200 211 221 220 Abs Neut (ANC) 1.45 - 7.50 k/uL 3.96 4.36 4.13 3.69 Abs Lymph 1.00 - 4.00 k/uL 1.98 1.91 1.96 1.64 Latest Ref Rng & Units 05/10/2023 08/16/2023 11/15/2023 03/20/2024 CMP Sodium 136 - 144 mmol/L 140 140 141 Potassium 3.7 - 5.1 mmol/L 4.4 4.7 5.2 Chloride 98 - 107 mmol/L 104 103 103 CO2 22 - 30 mmol/L 26 28 30 Glucose 74 - 99 mg/dL 97 109 88 BUN 7 - 21 mg/dL 12 12 11 Creatinine 0.58 - 0.96 mg/dL 0.71 0.85 0.79 0.82 Calcium 8.5 - 10.2 mg/dL 9.3 9.8 10.0 AST 13 - 35 U/L 15 15 30 16 ALT 7 - 38 U/L 12 19 34 13 Alkaline Phosphatase 34 - 123 U/L 70 73 71 Latest Ref Rng & Units 05/10/2018 11/09/2022 [...] results. In case of a contact investigation, pleaserepeat 8-12 weeks after a known exposure. TB Result Negative Negative Latest Ref Rng & Units 03/20/2024 Urinalysis Protein, Urine Negative Negative RBC, Urine 0-2 /HPF 0-2 /HPF Latest Ref Rng & Units 05/10/2018 11/09/2022 11/15/2023 Vitamin D Vitamin D 25 Hydroxy 31.0 - 80.0 ng/mL 26.0 31.8 36.8 Imaging Last XR Hand/Finger - Impression Only XR HAND GENERAL 3V PA/LAT/OBL BILATERAL Exam End: 11/09/2022 3:01 PM (Final result) Impression: IMPRESSION: 1. Mild osteoarthritis of the bilateral hands. 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: MAGDA Transcribe Date/Time: Nov 10 2022 8:57A ... Last MRI Hand - Impression Only No resulted procedures found. Last XR Chest - Impression Only No resulted procedures found. Last XR Cervical Spine - Impression Only No resulted procedures found. Health Maintenance Current Immunizations Never Reviewed Name Date COVID-19 vaccine (MODERNA) 06/09/2024 COVID-19 vaccine (PFIZER-BIONTECH) 07/04/2023 COVID-19 vaccine, bivalent (MODERNA) 08/10/2022 COVID-19 vaccine, monovalent (MODERNA) 12/15/2021, 05/20/2021, 10/29/2020, 10/01/2020 Physical Exam VITAL SIGNS: Pulse 90 Ht 5' 7 (1.70m) Wt 164 lb 7.4 oz (74.6kg) SpO2 95% BMI 25.75 kg/(m^2). GENERAL APPEARANCE: Well groomed. In no distress. SKIN: No rash, thickening, nodules, calcifications, discoloration. HENT: Normal external examination of the ears and nose, lips, NECK: No mass or asymmetry, RESPIRATORY: Normal respiratory effort. Clear to auscultation, [...] all solis. No swelling or synovitis. No tenderness to palpation Hands: Synovitis along right index PIP with tenderness, Lower extremities: Knees: No swelling or effusion. No tenderness to palpation. Ankles: No tenderness to palpation Feet: No tenderness to palpation. Diagnoses: (M05.79) Rheumatoid arthritis involving multiple sites with positive rheumatoid factor (HCC) (primary encounter diagnosis) (Z79.899) Encounter for long-term (current) use of medications Impression and Plan 1. Seropositive Rheumatoid arthritis, non erosive, non nodular Manifestations- Joint pain with swelling, synovitis, RF 23, CCP 250, good response to methotrexate and prednisone Status-doing well on methotrexate, no joint swelling, still has back pain radiating to legs which is likely related to osteoarthritis/sciatica . 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 Monitoring for drug toxicity CBC, CMP to monitor methotrexate toxicity today TB screening, hep B/C negative in 10/2022 3. Osteoarthritis She does also have osteoarthritis which could be contributing to her knee and shoulder pain continue taking Tylenol as needed May take Aleve as needed Recommend physical therapy Following with orthopedics for back pain, awaiting MRI lumbar spine 5. Osteopenia DEXA 09/2023 reviewed in scanned documents-osteopenia with lowest T-score -1.7 right femoral neck She reports right fifth toe fracture after bumping hard in the kitchen, denies any other fracture. PCP had prescribed Fosamax, has not started yet, reluctant to take too many medications. PTH, vitamin D, TSH, SPEP to evaluate for secondary causes of bone loss unremarkable 10/2023 Since she has not been on steroids recently, okay to repeat DEXA for monitoring bone density, if she has significant worsening, would recommend starting bone strengthening agent. Continue vitamin D supplementation, 1000 unit daily 6. Sinus fullness, postnasal discharge Follow-up with ENT 7. Healthcare maintenance/Malignancy screening Defer to PCP Orders this visit: Office Visit on 06/26/24 COMPREHENSIVE METABOLIC PANEL COMPLETE BLOOD COUNT AND DIFFERENTIAL C-REACTIVE PROTEIN SEDIMENTATION RATE, WESTERGREN DNA AB DS + CONF BLD HANK BY IFA SCREEN ANTI NICK ID predniSONE (DELTASONE) 5 mg tablet methotrexate 2.5 mg tablet folic acid 1 mg tablet Return in about 3 months (around 09/24/2024). I spent a total of 23 minutes on the date of the service which included preparing to see the patient, [id number] patient care, completing clinical documentation, obtaining and/or reviewing separately obtained history, performing a medically appropriate examination, counseling and educating the pat ient/family/caregiver, and ordering medications, tests, or procedures. Harish Paula MD, [facility] Rheumatology documented in this [facility] Instructions* Patient Instructions* Manohar Mcdowell PA-C - 05/29/2024 1:00 PM EST Sinus Irrigation Instructions Fill [employer]Med Irrigation bottle with 8oz distilled or previously boiled and cooled water (not tap water). Add a [employer]Med Sinus rinse packet or mix saline using the recipe below. Swirl the bottle to mix. Irrigate nose as instructed below. Do this procedure twice daily - once in the morning, and once atnight Saline Irrigation Instructions Bend head over a basin or sink. Irrigate half of bottle solution through upper nostril by squeezingthe bottle firmly and gently, not quickly. Do not inhale the liquid, the solution will go into yoursinuses, through one nostril and drain out the other. Irrigant solution should come out of other nostril or down back of throat. Switch sides and repeat on the opposite side. Patient should not hold b reath while irrigating. - if you have issues with your frontal sinuses (forehead) ensure you perform with head down position If you are having sinus surgery, irrigations should be performed 4x daily. If prescribed an antibiotic or steroid with the irrigation, this will be used twice daily. Instructional video: https://www.[employer].com/watch?v=HI1uaDp2Gt3 Normal Saline Recipe (1Liter or 32 ounces) Mix ingredients below together and store. Use in 3-days. - 1 liter boiled or distilled water - 3 teaspoon israel/pickling/kosher salt (non-iodized) - 1 teaspoon baking soda If you prefer to mix with each irrigation use, combine the salt and baking soda as above. Mix well and store. When ready to irrigate, pour 1-teaspoon of the combined dry-mixture into the [employer] irrigation bottle and add 8-ounces of previously boiled or distilled water. [employer] Bottle Cleaning Instructions Until further evidence becomes available, cleaning after every use and replacing after 3-months is what is recommended. Rinse out bottle and wash its tip with soap and water after each use. Air dry completely. Once a week, sterilize the bottle by placing the bottle, cap and tube in the microwave for 1 and 1/2 -minutesto disinfect. For full cleaning instructions, go to [email or web address]/usa/use_npsr.php documented in this encounterMer[facility]11-06-2024 NoteHNO ID: [id number] Author: MANOHRA MCDOWELL PA-C Service: ? Author Type: Physician Offset 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 Type: Progress Notes Filed: 05/29/2024 13:01 Note Text: [facility] [place] FOLLOW-UP CLINIC NOTE CC: Ms. Siddiqui is a 69 year old female who comes in for follow up. Patient was last seen on 02/07/2024 with plan of care: ASSESSMENT: Change in voice (primary encounter diagnosis) Hoarseness Environmental and seasonal allergies Pnd (post-nasal drip) PLAN: - Trial of Flonase, add Astelin and nasal saline irrigations; instructed patient on appropriate use, side effects and need for daily adherence to realize benefits - Educated patient on GERD, including diet and lifestyle modifications, alginate therapy; patient education handout provided, consider trial of PPI - Aggressive allergy management, avoidance of allergic triggers, daily oral antihistamine, nasal saline rinses - Advised patient on red flag warning signs, symptoms that warrant immediate evaluation in ER - Follow up in 8 weeks; sooner if clinically indicated Manohar Mcdowell PA-C Comprehensive ENT ASSESSMENT: Pnd (post-nasal drip) (primary encounter diagnosis) Environmental and seasonal allergies Hoarseness PLAN: - Continue Flonase, Astelin and nasal saline irrigations; instructed patient on appropriate use, side effects and need for daily adherence to realize benefits - Aggressive allergy management, avoidance of allergic triggers, daily oral antihistamine, nasal saline rinses - Educated patient on GERD, including diet and lifestyle modifications, alginate therapy; patient education handout provided, consider trial of PPI - Advised patient on red flag warning signs, symptoms that warrant immediate evaluation in ER - Follow up as clinically indicated Manohar Mcdowell PA-C Comprehensive ENT HPI: Since last visit, patient reports significant improvement in PND, throat clearing, rhinitis since initiation of Flonase, Astelin. Patient reports she notices symptoms flare up, intermittent hoarseness when she does not take nasal sprays for a few days at a time. Patient reports sinus pressure, sinus pain s/p ocular injections which resolves after a few days. Patient reports most benefit with nasal saline rinses. No new head or neck concerns today. Patient accompanied by daughter during duration of visit today. HPI 02/07/2024: 68 year old female presents to clinic for evaluation of change in voice. Patient reports since June 2023, she has experienced some degree of hoarseness. Patient endorses PND, throat clearing, constant rhinitis, intermittent sore throat. Patient endorses history of seasonal and environmental allergies, oral antihistamine PRN and Flonase PRN in the past without perceived benefit. Patient endorses occasional GERD, no interventions. Patient former smoker, quit in 2016. Patient denies dysphagia, odynophagia, throat swelling, airway compromise. Patient accompanied by daughter during duration of visit today. Past medical history: PAST MEDICAL HISTORY Diagnosis Date Hyperlipidemia 07/27/2010 Macular degeneration 07/27/2010 Normal coronary arteries 07/2010 [facility] performed for evaluation chest pain, abnormal stress test UTI (urinary tract infection) 07/27/2010 Past surgical history: PAST SURGICAL HISTORY Procedure Laterality Date CARPAL TUNNEL HYSTERECTOMY HX 1991 LIG/TRNSXJ FLP TUBE ABDL/VAG APPR UNI/BI in the OVARIAN CYSTECTOMY in the Current medication(s): Current Outpatient Medications Medication Sig methotrexate 2.5 mg tablet Take 8 tablets by mouth one time a week. folic acid 1 mg tablet Take 2 tablets by mouth once daily. fluticasone (FLONASE ALLERGY RELIEF) 50 mcg/actuation nasal spray Use 1 [place] in each nostril two times a day. azelastine 0.1% nasal spray Use 1 [place] in each nostril two times a day. INV SEMAGLUTIDE, OZEMPIC,, 2 MG/1.5 ML, PEN [...] BY MOUTH DAILY WITH BREAKFAST AND supper No current facility-administered medications for this visit. Allergies: ALLERGIES Allergen Reactions Cefuroxime Hives Social history: Social History Tobacco Use Smoking status: Former Current packs/day: 0.00 Average packs/day: 0.8 packs/day for 40.0 years (30.0 ttl pk-yrs) Types: Cigarettes Start date: 07/24/1975 Quit date: 07/24/2015 Years since quittin.8 Smokeless tobacco: Never Tobacco comments: active smoker for about 40 years about 1 pk per day; quit 2016 Substance Use Topics Alcohol use: No Drug use: No Family history: FAMILY HISTORY Problem Relation Age of Onset Ischemic Heart Disease Father (more content not included)...[facility]11-06-[facility]24 History of Present illness Narrative* Manohar Mcdowell PA-C - 05/29/2024 12:36 PM EST Images from the original note were not included. [facility] FOLLOW-UP CLINIC NOTE CC: Ms. Siddiqui is a 69 year old female who comes in for follow up. Patient was last seen on 02/07/2024 with plan of care: ASSESSMENT: Change in voice (primary encounter diagnosis) Hoarseness Environmental and seasonal allergies Pnd (post-nasal drip) PLAN: - Trial of Flonase, add Astelin and nasal saline irrigations; instructed patient on appropriate use, side effects and need for daily adherence to realize benefits - Educated patient on GERD, including diet and lifestyle modifications, alginate therapy; patient education handout provided, consider trial of PPI - Aggressive allergy management, avoidance of allergic triggers, daily oral antihistamine, nasal saline rinses - Advised patient on red flag warning signs, symptoms that warrant immediate evaluation in ER - Follow up in 8 weeks; sooner if clinically indicated Manohar Mcdowell PA-C Comprehensive ENT ASSESSMENT: Pnd (post-nasal drip) (primary encounter diagnosis) Environmental and seasonal allergies Hoarseness PLAN: - Continue Flonase, Astelin and nasal saline irrigations; instructed patient on appropriate use, side effects and need for daily adherence to realize benefits - Aggressive allergy management, avoidance of allergic triggers, daily oral antihistamine, nasal saline rinses - Educated patient on GERD, including diet and lifestyle modifications, alginate therapy; patient education handout provided, consider trial of PPI - Advised patient on red flag warning signs, symptoms that warrant immediate evaluation in ER - Follow up as clinically indicated Manohar Mcdowell PA-C Comprehensive E[facility] HPI: Since last visit, patient reports significant improvement in PND, throat clearing, rhinitis since initiation of Flonase, Astelin. Patient reports she notices symptoms flare up, intermittent hoarseness when she does not take nasal sprays for a few days at a time. Patient reports sinus pressure, sinus pain s/p ocular injections which resolves after a few days. Patient reports most benefit with nasal saline rinses. No new head or neck concerns today. Patient accompanied by daughter during duration of visit today. HPI 02/07/2024: 68 year old female presents to clinic for evaluation of change in voice. Patient reports since June 2023, she has experienced some degree of hoarseness. Patient endorses PND, throat clearing, constant rhinitis, intermittent sore throat. Patient endorses history of seasonal and environmental allergies, oral antihistamine PRN and Flonase PRN in the past without perceived benefit. Patient endorses occasional GERD, no interventions. Patient former smoker, quit in 2017. Patient denies dysphagia,odynophagia, throat swelling, airway compromise. Patient accompanied by daughter during duration of visit today. Past medical history: PAST MEDICAL HISTORY Diagnosis Date Hyperlipidemia 07/27/2010 Macular degeneration 07/27/2010 Normal coronary arteries 07/2010 [facility] performed for evaluation chest pain, abnormal stress test UTI (urinary tract infection) 07/27/2010 Past surgical history: PAST SURGICAL HISTORY Procedure Laterality Date CARPAL TUNNEL HYSTERECTOMY HX 1991 LIG/TRNSXJ FLP TUBE ABDL/VAG APPR UNI/BI in the OVARIAN CYSTECTOMY in the Current medication(s): Current Outpatient Medications Medication Sig methotrexate 2.5 mg tablet Take 8 tablets by mouth one time a week. folic acid 1 mg tablet Take 2 tablets by mouth once daily. fluticasone (FLONASE ALLERGY RELIEF) 50 mcg/actuation nasal spray Use 1 [place] in each nostril two times a day. azelastine 0.1% nasal spray Use 1 [place] in each nostril two times a day. INV SEMAGLUTIDE, OZEMPIC,, 2 MG/1.5 ML, PEN [...] BY MOUTH DAILY WITH BREAKFAST & supper No current facility-administered medications for this visit. Allergies: ALLERGIES Allergen Reactions Cefuroxime Hives Social history: Social History Tobacco Use Smoking status: Former Current packs/day: 0.00 Average packs/day: 0.8 packs/day for 40.0 years (30.0 ttl pk-yrs) Types: Cigarettes Start date: 07/24/1975 Quit date: 07/24/2015 Years since quittin.8 Smokeless tobacco: Never Tobacco comments: active smoker for about 40 years about 1 pk per day; quit 2015 Substance Use Topics Alcohol use: No Drug use: No Family history: FAMILY HISTORY Problem Relation Age of Onset Ischemic Heart Disease Father other (liver ca) Father age 78 liver CA; CAD other (bladder ca) Mother age 59 bladder CA Heart Brother valvular heart disease There are no exam notes on file for this visit. ROS: CONSTITUTIONAL: No fevers, chills, nightsweats, unintended weight loss HEAD: - headaches, - head injury EYES: + glasses/contact lens, - changes in vision, - diplopia, - blurry vision, - floaters EARS: - hearing loss, - change in hearing, - tinnitus, - otalgia, - ear pressure, - aural fullness,- otorrhea, - itching, - autophony, - ear infections, - PE tubes NOSE & SINUSES: + nasal congestion, + rhinorrhea, + PND, - epistaxis, - sense of smell, - history of nasal polyps, - sinus trouble, - sinus pressure, - sinus pain MOUTH & THROAT: - soreness, - dryness, - ulcers, - sore throat, + hoarseness, - change in voice, + teeth (caries, dentures, extractions, abscesses) PULM: No dyspnea, unexplained cough CV: No chest pain, shortness of breath, leg swelling, or palpitations GI: No dysphagia/odynophagia, + problematic reflux. No nausea, vomiting, or diarrhea PSYCH: No concerns regarding depression, anxiety or panic PHYSICAL EXAM: GENERAL: 69 year old female is well developed, well nourished, without obvious deformities, in no acute distress COMMUNICATION: The patient speaks with a normal, clear voice without hoarseness. No stridor or stertor. Hearing is grossly normal OVERALL FACIAL APPEARANCE: No obvious scars, lesions, or masses EYES: Extraocular muscles are intact, no diplopia on primary gaze EARS: Externally normal in appearance, without scars, lesions, masses, or tenderness. Right EAC: patent; no swelling, redness, or obstruction R TM: visualized and intact; pearly hill and translucent, landmarks undistorted; no fluid behind TM R Pneumotoscopy: TM is mobile Left EAC: patent; no swelling, redness, or obstruction L TM: visualized and intact; pearly hill and translucent, landmarks undistorted; no fluid behind TM L Pneumotoscopy: TM is mobile NOSE: Externally normal in appearance, without scars, lesions, or masses. Nasal passageways are patent. The mucosa is pink and moist without lesions, visible turbinates grossly normal on anterior rhinoscopy. Septum is midline. ORAL CAVITY AND OROPHARYNX: Teeth are in fair repair and nontender. The lips, gums, oral mucosa, hard and soft palates, tongue, tonsil area, and posterior pharyngeal mucosa are without lesions. Uvulamidline. No pharyngeal swelling, oropharyngeal exudate, posterior oropharyngeal erythema, or uvula swelling. Gag reflex intact. NECK: The neck appears symmetric without scars and on palpation is without masses or lymphadenopathy. Trachea is midline and mobile. Full range of motion without symptoms. NEURO: Patient is Alert and Oriented to person, place, time, and situation. Cranial nerves II-XII grossly intact RESPIRATORY: Breathing comfortably, no evidence accessory muscle use, no intercostal retractions CV: Strong carotid artery pulse with no bruit RADS: None LABS: Relevant labs were reviewed and discussed with patient. OUTSIDE RECORDS: None PROCEDURE: None Manohar Mcdowell PA-C Comprehensive ENT Medical Decision Making: Problems: Low: Stable chronic illness Risk: Low: Low risk from testing/treatment Medical Decision Making Level: 3 - Low documented in this encounterMer[facility]24 NotePatient Education Nutrition BMI for Adults Body mass index (BMI) is a number found using a person's weight and height. BMI can help tell how much of a person's weight is made up of fat. BMI does not measure body fat directly. It is used instead of tests that directly measure body fat, which can be difficult and expensive. What are BMI measurements used for? BMI is useful to: ? Find out if your weight puts you at higher risk for medical problems. ? Help recommend changes, such as in diet and exercise. This can help you reach a healthy weight. BMI screening can be done again to see if these changes are working. How is BMI calculated? Your height and weight are measured. The BMI is found from those numbers. This can be done with U.S. or metric measurements. Note that charts and online BMI calculators are available to help you findyour BMI quickly and easily without doing these calculations. To calculate your BMI in U.[place]. measurements: 1. Measure your weight in pounds (lb). 2. Multiply the number of pounds by 703. ? So, for an adult who weighs 150 lb, multiply that number by 703: 150 x 703, which equals 105,450. 3. Measure your height in inches. Then multiply that number by itself to get a measurement called inches squared. ? So, for an adult who is 70 inches tall, the inches squared measurement is 70 inches x 70 inches, which equals 4,900 inches squared. 4. Divide the total from step 2 (number of lb x 703) by the total from step 3 (inches squared): 105,450 ? 4,900 = 21.5. This is your BMI. To calculate your BMI in metric measurements: 1. Measure your weight in kilograms (kg). ? For this example, the weight is 70 kg. 2. Measure your height in meters (m). Then multiply that number by itself to get a measurement called meters squared. ? So, for an adult who is 1.75 m tall, the meters squared measurement is 1.75 m x 1.75 m, which equals 3.1 meters squared. 3. Divide the number of kilograms (your weight) by the meters squared number. In this example: 70 ?3.1 = 22.6. This is your BMI. What do the results mean? BMI charts are used to see if you are underweight, normal weight, overweight, or obese. The following guidelines will be used: ? Underweight: BMI less than 18.5. ? Normal weight: BMI between 18.5 and 24.9. ? Overweight: BMI between 25 and 29.9. ? Obese: BMI of 30 or above. BMI is a tool and cannot diagnose a condition. Talk with your health care provider about what your BMI means for you. Keep these notes in mind: ? Weight includes fat and muscle. Someone with a muscular build, such as an athlete, may have a BMIthat is higher than 24.9. In cases like these, BMI is not a correct measure of body fat. ? If you have a BMI of 25 or higher, your provider may need to do more testing to find out if excess body fat is the cause. ? BMI is measured the same way for males and females. Females usually have more body fat than malesof the same height and weight. Where to find more information For more information about BMI, including tools to quickly find your BMI, go to: ? Centers for Disease Control and Prevention: cdc.gov ? [place] Heart Association: heart.org ? National Heart, Lung, and Blood [place]: nhlbi.nih.gov This information is not intended to replace advice given to you by your health care provider. Make sure you discuss any questions you have with your health care provider. Document Revised: 03/30/2023 Document Reviewed: 03/23/2023 [employer] Patient Education ? 2023 [employer] 03-22-2024 Telephone encounter Note* Telephone Encounter - Janes Driscoll - 03/22/2024 10:04 AM EDT Patient called to cancel her three week shoe check as she is keeping them [id number] Miscellaneous Notes* Telephone Encounter - Janes Driscoll - 03/22/2024 10:04 AM EDT Patient called to cancel her three week shoe check as she is keeping them documented in this encounterThree Rivers [id number] NoteHNO ID: [id number] Author: HARISH PAULA MD Service: ? Author Type: Physician Type: Progress Notes Filed: 03/20/2024 12:02 Note Text: Rheumatology Outpatient Clinic Date of Service: 03/20/2024 Patient: Yamile Siddiqui Medical Record: [id number] Primary Care Physician: Aleksander Jimenez MD Referring Provider: SELF Last Rheumatology visit: 11/15/2023 (with Harish Paula) Chief complaint: Follow Up History of Present Illness Yamile Siddiqui is a 68 year old White female with medical history of rheumatoid arthritis, hyperlipidemia, diabetes mellitus, history of tobacco use, Histoplasmosis right eye in ( treated), 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 She is currently taking methotrexate sodium, prednisone. Yamile is both RF - 49 (11/09/2022) and CCP - 275 (11/09/2022) positive. History of rheumatoid arthritis She was being followed by local rheumatology in [place], but her daughter wanted her to [facility]. Seen by Dr. 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 Patient reports pain over MCPs, PIPs, wrists, [...] Continue folic acid to 2 mg daily 10/2023-no synovitis, No synovitis on exam today Continue methotrexate 20 mg weekly, folic acid to 2 mg daily 02/2024 Saw ENT 01/2020 She reports pain in her hands after activities, otherwise reports doing good with no joint swelling. Continues to have low back pain radiating to left leg. Daughter had COVID, has not made her for a while. Denies any new symptoms Previous workups 10/2022 RF 49, CCP 275 04/2018 RF [...] lower lumbar spine. Patient-Entered Data PAIN EVALUATION 03/17/20241812 Pain Level: 6 Description: Aching;Burning;Cramping;Numbness Duration Units: Hours Frequency: Intermittent Intervention/Comfort measure: Relaxation PROMIS Assessments 11/09/2023 02/01/2024 03/17/2024 PROMIS Assessments Physical Health Percentile 31 10 Mental Health Percentile 26 13 Pain Score 4 3 Pain Interference Percentile 16 12 Fatigue Percentile 24 18 Physical Function Percentile 18 18 RAPID 3 Starr Activities of Daily Living 03/17/2024 6:15 PM 11/09/2023 8:49 AM 08/15/2023 8:50 AM First answer obtained - 11/08/2022 11:32 [...] difficulty Get in and out of car? W (more content not included)...[facility]08[facility] History of Present illness Narrative* Harish Paula MD - 03/20/2024 11:11 AM EDT Images from the original note were not included. Rheumatology Outpatient Clinic Date of Service: 03/20/2024 Patient: Yamile Siddiqui Medical Record: [id number] Primary Care Physician: Aleksander Jimenez MD Referring Provider: SELF Last Rheumatology visit: 11/15/2023 (with Harish Paula) Chief complaint: Follow Up History of Present Illness Yamile Siddiqui is a 68 year old White female with medical history of rheumatoid arthritis, hyperlipidemia, diabetes mellitus, history of tobaccouse, Histoplasmosis right eye in ( treated), macular degeneration ( blind right eye central vision), presents on 03/20/2024 for an in- person visit for evaluation of Follow Up. She is currently taking methotrexate sodium, prednisone. Yamile is both RF - 49 (11/09/2022) and CCP - 275 (11/09/2022) positive. History of rheumatoid arthritis She was being followed by local rheumatology in [place], but her daughter wanted her to get a 2nd opinion at [facility]. Seen by Dr. 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 Patient reports pain over MCPs, PIPs, wrists, [...] Continue folic acid to 2 mg daily 10/2023-no synovitis, No synovitis on exam today Continue methotrexate 20 mg weekly, folic acid to 2 mg daily 02/2024 Saw ENT 01/2020 She reports pain in her hands after activities, otherwise reports doing good with no joint swelling. Continues to have low back pain radiating to left leg. Daughter had COVID, has not made her for a while. Denies any new symptoms Previous workups 10/2022 RF 49, CCP 275 04/2018 RF [...] lower lumbar spine. Patient-Entered Data PAIN EVALUATION 03/17/20241812 Pain Level: 6 Description: Aching;Burning;Cramping;Numbness Duration Units: Hours Frequency: Intermittent Intervention/Comfort measure: Relaxation PROMIS Assessments 11/09/2023 02/01/2024 03/17/2024 PROMIS Assessments Physical Health Percentile 31 10 Mental Health Percentile 26 13 Pain Score 4 3 Pain Interference Percentile 16 12 Fatigue Percentile 24 18 Physical Function Percentile 18 18 RAPID 3 Starr Activities of Daily Living 03/17/2024 6:15 PM 11/09/2023 8:49 AM 08/15/2023 8:50 AM First answer obtained - 11/08/2022 11:32 [...] Moderate Severity 4.3 - 10.0: High Severity 08/15/2023 11/09/2023 03/17/2024 RAPID-3 Weighed Score RAPID 3 Weighed Score 4.44 (High severity ) 3.44 (Moderate severity ) 4.44 (High severity ) Review of Systems Review of Systems CONSTITUTION: Negative for: Fever and Recent weight change HEENT: Positive for: Dry mouth Negative for: Nosebleeds RESPIRATORY: Negative for: Cough, Shortness of breath and Pain with breathing GASTROINTESTINAL: Negative for: Melena, Diarrhea, Heartburn and Abdominal pain MUSCULOSKELETAL: Positive for: Arthralgias, Myalgias, Muscle weakness, Joint swelling and Morning Joint Stiffness NEUROLOGICAL: Negative for: Headaches, Numbness and Memory loss SKIN: Positive for: Hair loss and Nail changes Negative for: Rash and Skin changes EYES: Positive for: Eye pain, Eye redness, Eye dryness and Visual disturbance CARDIOVASCULAR: Negative for: Chest pain and Leg swelling GENITOURINARY: Negative for: Dysuria and Hematuria HEMATOLOGIC/LYMPHATIC: Negative for: Swollen glands Raynaud's: Denies Dry eyes, denies dry mouth Past Medical History PAST MEDICAL HISTORY 07/27/2010: Hyperlipidemia 07/27/2010: Macular degeneration 07/2010: Normal coronary arteries Comment: LHC performed for evaluation chest pain, abnormal stress test 07/27/2010: UTI (urinary tract infection) Past Surgical History PAST SURGICAL HISTORY No date: CARPAL TUNNEL No date: HYSTERECTOMY HX Comment: 1991 No date: LIG/TRNSXJ FLP TUBE ABDL/VAG APPR UNI/BI Comment: in the No date: OVARIAN CYSTECTOMY Comment: in the Allergy ALLERGIES Allergen Reactions Cefuroxime [...] Social History Tobacco Use Smoking status: Former Current packs/day: 0.00 Average packs/day: 0.8 packs/day for 40.0 years (30.0 ttl pk-yrs) Types: Cigarettes Start date: 07/24/1975 Quit date: 07/24/2015 Years since quittin.6 Smokeless tobacco: Never Tobacco comments: active smoker for about 40 years about 1 pk per day; quit 2016 Substance Use Topics Alcohol use: No Drug use: No Current Medications Current Outpatient Medications Medication Sig fluticasone (FLONASE ALLERGY RELIEF) 50 mcg/actuation nasal spray Use 1 [place] in each nostril two times a day. azelastine 0.1% nasal spray Use 1 [place] in each nostril two times a day. INV SEMAGLUTIDE, OZEMPIC,, 2 MG/1.5 ML, PEN [...] visit. Labs Latest Ref Rng & Units 02/08/2023 05/10/2023 08/16/2023 11/15/2023 CBC WBC 3.70 - 11.00 k/uL 6.74 6.63 6.86 6.65 Hemoglobin 11.5 - 15.5 g/dL 14.3 14.3 15.4 15.4 Hematocrit 36.0 - 46.0 % 44.1 43.6 45.1 46.8 Platelet Count 150 - 400 k/uL 222 200 211 221 Abs Neut (ANC) 1.45 - 7.50 k/uL 3.75 3.96 4.36 4.13 Abs Lymph 1.00 - 4.00 k/uL 2.30 1.98 1.91 1.96 Latest Ref Rng & Units 02/08/2023 05/10/2023 08/16/2023 11/15/2023 CMP Sodium 136 - 144 mmol/L 140 140 Potassium 3.7 - 5.1 mmol/L 4.4 4.7 Chloride 97 - 105 mmol/L 104 103 CO2 22 - 30 mmol/L 26 28 Glucose 74 - 99 mg/dL 97 109 BUN 7 - 21 mg/dL 12 12 Creatinine 0.58 - 0.96 mg/dL 0.82 0.71 0.85 0.79 Calcium 8.5 - 10.2 mg/dL 9.3 9.8 AST 13 - 35 U/L 24 15 15 30 ALT 7 - 38 U/L 31 12 19 34 Alkaline Phosphatase 34 - 123 U/L 70 73 Latest Ref Rng & Units 05/10/2018 11/09/2022 [...] results. In case of a contact investigation, pleaserepeat 8-12 weeks after a known exposure. TB Result Negative Negative Latest Ref Rng & Units 05/10/2018 11/09/2022 11/15/2023 Vitamin D Vitamin D 25 Hydroxy 31.0 - 80.0 ng/mL 26.0 31.8 36.8 Imaging Last XR Hand/Finger - Impression Only XR HAND GENERAL 3V PA/LAT/OBL BILATERAL Exam End: 11/09/2022 3:01 PM (Final result) Impression: IMPRESSION: 1. Mild osteoarthritis of the bilateral hands. 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: MAGDA Transcribe Date/Time: Nov 10 2022 8:57A ... Last MRI Hand - Impression Only No resulted procedures found. Last XR Chest - Impression Only No resulted procedures found. Last XR Cervical Spine - Impression Only No resulted procedures found. Health Maintenance Current Immunizations Never Reviewed Name Date COVID-19 vaccine, 2022- season ([facility]) 07/04/2023 COVID-19 vaccine, bivalent (MODERNA) 08/10/2022 COVID-19 vaccine, monovalent (MODERNA) 12/15/2021, 05/20/2021, 10/29/2020, 10/01/2020 Physical Exam VITAL SIGNS: BP 115/73 Pulse 60 Wt 167 lb (75.8kg) GENERAL APPEARANCE: Well groomed. In no distress. SKIN: No rash, thickening, nodules, calcifications, discoloration. HENT: Normal external examination of the ears and nose, lips, NECK: No mass or asymmetry, RESPIRATORY: Normal respiratory effort. Clear to auscultation, [...] all solis. No swelling or synovitis. No tenderness to palpation Hands: No synovitis or tenderness over MCPs, PIPs and DIPs Lower extremities: Knees: No swelling or effusion. No tenderness to palpation. Ankles: No tenderness to palpation Feet: No tenderness to palpation. Diagnoses: (M05.79) Rheumatoid arthritis involving multiple sites with positive rheumatoid factor (HCC) (primary encounter diagnosis) (Z79.899) Encounter for long-term (current) use of medications Impression and Plan 1. Seropositive Rheumatoid arthritis, non erosive, non nodular Manifestations- Joint pain with swelling, synovitis, RF 23, CCP 250, good response to methotrexate and prednisone Status-doing well on methotrexate, no joint swelling, still has back pain radiating to legs which is likely related to osteoarthritis/sciatica . She has not used prednisone for long time now No synovitis on exam [...] aquatic therapy, referral to physical therapy was given, has not started yet 5. Osteopenia DEXA 09/2023 reviewed in scanned documents-osteopenia with lowest T-score -1.7 right femoral neck She reports right fifth toe fracture after bumping hard in the kitchen, denies any other fracture. PCP had prescribed Fosamax, has not started yet, reluctant to take too many medications. PTH, vitamin D, TSH, SPEP to evaluate for secondary causes of bone loss unremarkable 10/2023 Since she has not been on steroids recently, okay to repeat DEXA for monitoring bone density, if she has significant worsening, would recommend starting bone strengthening agent. Continue vitamin D supplementation, 1000 unit daily 6. Sinus fullness, postnasal discharge Saw ENT 01/2024, better now 7. Toenail fungal infection saw podiatry, better now 8. Healthcare maintenance/Malignancy screening Defer to PCP Orders this visit: Office Visit on 03/20/24 COMPREHENSIVE METABOLIC PANEL COMPLETE BLOOD COUNT AND DIFFERENTIAL URINALYSIS, WITH MICROSCOPIC methotrexate 2.5 mg tablet folic acid 1 mg tablet Return in about 3 months (around 06/20/2024). I spent a total of 23 minutes on the date of the service which included preparing to see the patient, [id number] patient care, completing clinical documentation, obtaining and/or reviewing separately obtained history, performing a medically appropriate examination, counseling and educating the pat ient/family/caregiver, and ordering medications, tests, or procedures. Harish Paula MD, [facility] documented in this encounterMer[facility]-20-[facility] History of Present illness Narrative* Yessy Oakes, DPM - 03/12/2024 11:15 AM EDT Images from the original note were not included. Subjective Patient ID: Yamile Siddiqui is a 68 y.o. female who presents for Diabetic Shoes (Pt here today for dispensing of extra depth diabetic shoes with x2 pairs HM inserts. After walking with them she statesthey are very comfortable. All necessary paperwork has been signed. She is aware of the break-in period and will RTO 3 weeks for shoe check if needed, /BS: 110 A1C:5.8). HPI Patient presents For dispensing of diabetic shoes and 2 heat mold inserts Review of Systems Medications Current Outpatient Medications: acetaminophen (Tylenol 8 Hour) 650 MG ER tablet, Take 650 mg by mouth every 8 (eight) hours if needed for mild pain Do not crush, chew, or split., Disp: , Rfl: atorvastatin (Lipitor) 20 MG tablet, Take 20 mg by mouth Daily, Disp: , Rfl: cholecalciferol (Vitamin D-3) 25 MCG tablet, Take 25 mcg by mouth Daily, Disp: , Rfl: ciclopirox (Penlac) 8 % solution, Apply topically at bedtime, Disp: , Rfl: folic acid (Folvite) 1 MG tablet, Take by mouth Daily, Disp: , Rfl: metFORMIN (Glucophage) 850 MG tablet, Take by mouth, Disp: , Rfl: methotrexate 2.5 MG tablet, Take by mouth. Follow directions carefully, and ask to explain any partyou do not understand. Take exactly as directed., Disp: , Rfl: predniSONE (Deltasone) 5 MG tablet, Take by mouth, Disp: , Rfl: Semaglutide (OZEMPIC, 0.25 OR 0.5 MG/DOSE, SC), Inject under the skin, Disp: , Rfl: Allergies Cefuroxime Past Surgical History Past Surgical History: Procedure Laterality Date CARPAL TUNNEL RELEASE Left HYSTERECTOMY MULTIPLE TOOTH EXTRACTIONS ROTATOR CUFF REPAIR Left TUBAL LIGATION Family History Family History Problem Relation Name Age of Onset Cancer Mother Bladder Diabetes Mother Cancer Father Liver Heart attack Father Cancer Brother colon, lungs, liver Diabetes Brother Heart attack Brother Hypertension Brother Diabetes Daughter Diabetes Son Objective Physical Exam Cardiovascular: Comments: Pedal pulses: DP 2/4 L, 1/4 R. PT 2/4 bilateral. Skin temp is warm to warm. Varicosities: Telangiectasias present Hair growth: present Pulmonary: Effort: Pulmonary effort is normal. Musculoskeletal: General: No tenderness. Right lower leg: No edema. Left lower leg: No edema. Comments: ROM: AJ and STJ ROM are normal and pain free. MUSCLE STRENGTH: 5/5 for dorsiflexion, plantarflexion, inversion, eversion. PAIN: none DEFORMITIES: mild contracted digits 2 through 5 bilaterally Skin: General: Skin is warm. Capillary Refill: Capillary refill takes 2 to 3 seconds. Findings: No bruising or erythema. Comments: SKIN FINDINGS: Webspaces are clean and dry. Skin texture and turgor normal. HYPERKERATOSIS: mild hyperkeratotic tissue noted at the periphery of the weight-bearing surface of the heel bilaterally NAIL PATHOLOGY: right hallux nail with fungal involvement. Distal 3/4 of the nail yellow and white discolored, crumbly debris, 3 mm thickening. CLINICAL PICTURE TAKEN 12/29/2023 Neurological: Mental Status: She is alert and oriented to person, place, and time. Comments: Light touch sensation intact Vibratory sensation: diminished IPJ and MPJ bilaterally. Intact medial malleolus bilaterally Willard Maria Dolores monofilament: intact at 10/10 sites bilaterally Psychiatric: Mood and Affect: Mood normal. Behavior: Behavior normal. 52923 Q9 Assessment/Plan ICD-10-CM 1. Onychomycosis B35.1 2. Type II or unspecified type diabetes mellitus with neurological manifestations, not stated as uncontrolled(250.60) (CMS/HCC) E11.49 3. Hammer toes of both feet M20.41 M20.42 4. Acquired keratoderma L85.1 Patient presents for the dispensing of 1 pair of extra depth diabetic shoes and 2 pairs of heat molded orthotics. The shoes were applied and fit well. Each pair of inserts were heated to 270 degrees and molded to the patient's feet. Patient was able to stand and weight bear for the molding. The inserts achieve total contact with the plantar surface of the patient's feet. The insoles are comfortable and appropriate for their foot type. Instructions were given in the rotation and changing of the insoles. Heat molded inserts are required to achieve and maintain total contact with the plantar aspect of the patient's foot for the life of the device and to prevent tissue damage. 2 pairs of inserts are utilized for this patient due to bottoming out and loss of protection after 6 months of wear. They were dated to assist them in this process. Patient is able to apply the shoes independently. Walking in the shoes is comfortable and nonirritating. Pt is instructed in the break in period and return policy for the shoes and insoles. The PCS is on file and instructions given to call the office if questions or problems arise. The supplier standards regarding the DME given to patient. At the time of dispensing the shoes and insoles are suitable and not substandard. RTO 3 weeks to check shoes. A copy of pt records were reviewed and initialed by the PCP prior to the signing of the certifying statement. The patient was advised to wear the shoes at home for only one hour on the first day and to check their feet for any sores or irritations. This note was created with the assistance of a speech recognition program. While intending to generate a timely document that accurately reflects the content of the visit, no guarantee can be provided that every grammatical or spelling mistake has been or will be identified or corrected. Thank you for your understanding. Yessy Oakes DPM documented in this encounterThree Rivers [id number] Instructions* Patient Instructions* Manohar Mcdowell PA-C - 02/07/2024 1:21 PM EDT Sinus Irrigation Instructions Fill NeilMed Irrigation bottle with 8oz distilled or previously boiled and cooled water (not tap water). Add a NeilMed Sinus rinse packet or mix saline using the recipe below. Swirl the bottle to mix. Irrigate nose as instructed below. Do this procedure twice daily - once in the morning, and once atnight Saline Irrigation Instructions Bend head over a basin or sink. Irrigate half of bottle solution through upper nostril by squeezingthe bottle firmly and gently, not quickly. Do not inhale the liquid, the solution will go into yoursinuses, through one nostril and drain out the other. Irrigant solution should come out of other nostril or down back of throat. Switch sides and repeat on the opposite side. Patient should not hold b reath while irrigating. - if you have issues with your frontal sinuses (forehead) ensure you perform with head down position If you are having sinus surgery, irrigations should be performed 4x daily. If prescribed an antibiotic or steroid with the irrigation, this will be used twice daily. Instructional video: https://www.[employer].com/watch?v=[email or web address] Normal Saline Recipe (1Liter or 32 ounces) Mix ingredients below together and store. Use in 3-days. - 1 liter boiled or distilled water - 3 teaspoon israel/pickling/kosher salt (non-iodized) - 1 teaspoon baking soda If you prefer to mix with each irrigation use, combine the salt and baking soda as above. Mix well and store. When ready to irrigate, pour 1-teaspoon of the combined dry-mixture into the Talkito irrigation bottle and add 8-ounces of previously boiled or distilled water. Talkito Bottle Cleaning Instructions Until further evidence becomes available, cleaning after every use and replacing after 3-months is what is recommended. Rinse out bottle and wash its tip with soap and water after each use. Air dry completely. Once a week, sterilize the bottle by placing the bottle, cap and tube in the microwave for 1 and 1/2 -minutesto disinfect. For full cleaning instructions, go to [email or web address]/use_npsr.php documented in this encounterMer[facility]07-17-2024 History of Present illness Narrative* Manohar Mcdowell PA-C - 02/07/2024 1:03 PM EDT Images from the original note were not included. [facility] NOTE CC: Yamile Siddiqui is a 68 year old female who is seen at the request of Harish Paula MD for evaluation of change in voice. My findings and recommendations will be communicated to the referring provider via the shared electronic medical record. ASSESSMENT: Change in voice (primary encounter diagnosis) Hoarseness Environmental and seasonal allergies Pnd (post-nasal drip) PLAN: - Trial of Flonase, add Astelin and nasal saline irrigations; instructed patient on appropriate use, side effects and need for daily adherence to realize benefits - Educated patient on GERD, including diet and lifestyle modifications, alginate therapy; patient education handout provided, consider trial of PPI - Aggressive allergy management, avoidance of allergic triggers, daily oral antihistamine, nasal saline rinses - Advised patient on red flag warning signs, symptoms that warrant immediate evaluation in ER - Follow up in 8 weeks; sooner if clinically indicated Manohar Mcdowell PA-C [facility] HPI: 68 year old female presents to clinic for evaluation of change in voice. Patient reports since June 2023, she has experienced some degree of hoarseness. Patient endorses PND, throat clearing, constant rhinitis, intermittent sore throat. Patient endorses history of seasonal and environmental allergies, oral antihistamine PRN and Flonase PRN in the past without perceived benefit. Patient endorses occasional GERD, no interventions. Patient former smoker, quit in 2016. Patient denies dysphagia,odynophagia, throat swelling, airway compromise. Patient accompanied by daughter during duration of visit today. Past medical history: PAST MEDICAL HISTORY Diagnosis Date Hyperlipidemia 07/27/2010 Macular degeneration 07/27/2010 Normal coronary arteries 07/2010 [facility] performed for evaluation chest pain, abnormal stress test UTI (urinary tract infection) 07/27/2010 Past surgical history: PAST SURGICAL HISTORY Procedure Laterality Date CARPAL TUNNEL HYSTERECTOMY HX 1991 LIG/TRNSXJ FLP TUBE ABDL/VAG APPR UNI/BI in the OVARIAN CYSTECTOMY in the Current medication(s): Current Outpatient Medications Medication Sig INV SEMAGLUTIDE, OZEMPIC,, 2 MG/1.5 ML, PEN (IRB 20-853) Inject 0.5 mg subcutaneously one time a week. For Investigation Drug Use Only. PI: Dr. Pierce Lee methotrexate 2.5 mg tablet Take 8 tablets by mouth one time a week. folic acid 1 mg tablet Take 2 tablets by mouth once daily. atorvastatin (LIPITOR) 20 mg tablet 1 PO at bedtime predniSONE (DELTASONE) 5 mg tablet Take 1 tablet by mouth as needed. Take 1 tablet by mouth daily as needed metFORMIN (GLUCOPHAGE) 850 mg tablet TAKE 1 TABLET BY MOUTH DAILY WITH BREAKFAST & supper fluticasone (FLONASE ALLERGY RELIEF) 50 mcg/actuation nasal spray Use 1 [place] in each nostril two times a day. azelastine 0.1% nasal spray Use 1 [place] in each nostril two times a day. No current facility-administered medications for this visit. Allergies: ALLERGIES Allergen Reactions Cefuroxime Hives Social history: Social History Tobacco Use Smoking status: Former Packs/day: 0.75 Years: 40.00 Additional pack years: 0.00 Total pack years: 30.00 Types: Cigarettes Quit date: 07/24/2015 Years since quittin.5 Smokeless tobacco: Never Tobacco comments: active smoker for about 40 years about 1 pk per day; quit 2015 Substance Use Topics Alcohol use: No Drug use: No Family history: FAMILY HISTORY Problem Relation Age of Onset Ischemic Heart Disease Father other (liver ca) Father age 78 liver CA; CAD other (bladder ca) Mother age 59 bladder CA Heart Brother valvular heart disease There are no exam notes on file for this visit. ROS: CONSTITUTIONAL: No fevers, chills, nightsweats, unintended weight loss HEAD: - headaches, - head injury EYES: - glasses/contact lens, - changes in vision, - diplopia, - blurry vision, - floaters EARS: - hearing loss, - change in hearing, - tinnitus, - otalgia, - ear pressure, - aural fullness,- otorrhea, - itching, - autophony, - ear infections, - PE tubes NOSE & SINUSES: + nasal congestion, + rhinorrhea, + PND, - epistaxis, - sense of smell, - history of nasal polyps, - sinus trouble, - sinus pressure, - sinus pain MOUTH & THROAT: - soreness, - dryness, - ulcers, + sore throat, + hoarseness, - change in voice, + teeth (caries, dentures, extractions, abscesses), + throat clearing NECK: - neck lumps, - goiter, - neck pain, - swollen lymph nodes or glands PULM: No dyspnea, unexplained cough CV: No chest pain, shortness of breath, leg swelling, or palpitations GI: No dysphagia/odynophagia, + problematic reflux. No nausea, vomiting, or diarrhea PSYCH: No concerns regarding depression, anxiety or panic PHYSICAL EXAM: GENERAL: 68 year old female is well developed, well nourished, without obvious deformities, in no acute distress COMMUNICATION: The patient speaks with a normal, clear voice without hoarseness. No stridor or stertor. Hearing is grossly normal OVERALL FACIAL APPEARANCE: No obvious scars, lesions, or masses EYES: Extraocular muscles are intact, no diplopia on primary gaze EARS: Externally normal in appearance, without scars, lesions, masses, or tenderness. Right EAC: patent; no swelling, redness, or obstruction R TM: visualized and intact; pearly hill and translucent, landmarks undistorted; no fluid behind TM R Pneumotoscopy: TM is mobile Left EAC: patent; no swelling, redness, or obstruction L TM: visualized and intact; pearly hill and translucent, landmarks undistorted; no fluid behind TM L Pneumotoscopy: TM is mobile NOSE: Externally normal in appearance, without scars, lesions, or masses. There is no tenderness with percussion over the paranasal sinuses. Nasal passageways are patent. The mucosa is pink and moistwithout lesions, visible turbinates grossly hypertrophied, pale, clear mucous stranding on anteriorrhinoscopy. Septum is midline. ORAL CAVITY AND OROPHARYNX: Teeth are in poor repair and nontender. The lips, gums, oral mucosa, hard and soft palates, tongue, tonsil area, and posterior pharyngeal mucosa are without lesions. Uvulamidline. No pharyngeal swelling, oropharyngeal exudate, + posterior oropharyngeal cobblestoning. Gag reflex intact. NECK: The neck appears symmetric without scars and on palpation is without masses or lymphadenopathy. Trachea is midline and mobile. Full range of motion without symptoms. LYMPH NODES: No masses or tenderness. No submental, submandibular, tonsillar, preauricular, posterior auricular, occipital, or parotid adenopathy NEURO: Patient is Alert and Oriented to person, place, time, and situation. Cranial nerves II-XII grossly intact RESPIRATORY: Breathing comfortably, no evidence accessory muscle use, no intercostal retractions CV: Strong carotid artery pulse with no bruit RADS: None LABS: Relevant labs were reviewed and discussed with patient. OUTSIDE RECORDS: None PROCEDURE: Diagnostic Flexible Laryngoscopy Indication: Change in voice, hoarseness, hyperactive gag Consent: Verbal consent obtained. Risks, benefits, alternatives, and expectations were explained; patient consents to procedure. Clinician: Manohar Mcdowell PA-C Anesthesia: The patient was sprayed with 2% topical lidocaine Findings: A flexible fiberoptic laryngoscope was passed through the patient's nares. The nasal cavities, nasopharynx, oropharynx, hypopharynx and larynx were examined. Septum: Midline, no perforations Nasal cavity: grossly unremarkable, no lesions/masses/polyps/discharge, turbinates hypertrophied, pale, thick mucous stranding Naso-/Alfa-/Hypopharynx: nasopharynx and oropharynx were normal without any lesions or masses visualized. Copious thick mucous present. No masses or lesions were visualized at the base of tongue, vallecula, epiglottis, aryepiglottic folds, pyriform sinuses, and lateral pharyngeal sierra; cobblestoning of posterior pharyngeal wall. True vocal fold movement was intact bilaterally. No lesions visualized. The patient's airway was widely patent with no evidence of obstruction Patient tolerated the procedure well and there were no complications. Findings were explained to the patient. Manohar Mcdowell PA-C Comprehensive ENT Medical Decision Making: Problems: Low: Stable chronic illness Risk: Low: Low risk from testing/treatment Moderate: Drug management Medical Decision Making Level: 3 - Low [facility] History of Present illness Narrative* Harish Paula MD - 11/15/2023 11:57 AM EDT Images from the original note were not included. Rheumatology Outpatient Clinic Date of Service: 11/15/2023 Patient: Yamile Siddiqui Medical Record: [id number] Primary Care Physician: Aleksander Jimenez MD Referring Provider: SELF Last Rheumatology visit: 08/16/2023 (with Harish Paula) Chief complaint: Pain (intermittent shooting pain to right thumb X 2 months/lower back pain radiates down right leg-getting worse-10/10 intermittently/pain to middle ysvj-demrt-qbtycmyqmtgr 10/10) History of Present Illness Yamile Siddiqui is a 68 year old White female with medical history of rheumatoid arthritis, hyperlipidemia, diabetes mellitus, history of tobaccouse, Histoplasmosis right eye in ( treated), macular degeneration ( blind right eye central vision), presents on 11/15/2023 for an in- person visit for evaluation of Pain (intermittent shooting pain to right thumb X 2 months/lower back pain radiates down right leg-getting worse-10/10 intermi ttently/pain to middle eqal-ogarg-cskqxuyfjalz 05/02). She is currently taking methotrexate sodium,prednisone. Yamile is both RF - 49 (11/09/2022) and CCP - 275 (11/09/2022) positive. HISTORY OF PRESENT ILLNESS History of rheumatoid arthritis She was being followed by local rheumatology in [place], but her daughter wanted her to [facility]. Seen by Dr. 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 Patient reports pain over MCPs, PIPs, wrists, [...] AM 08/15/2023 8:50 AM 05/05/2023 9:15 AM Firstanswer obtained - 11/08/2022 11:32 AM Dress self? [...] Macular degeneration 07/27/2010 Normal coronary arteries 07/2010 [facility] performed for evaluation chest pain, abnormal stress [...] results. In case of a contact investigation, pleaserepeat 8-12 weeks after a known exposure. TB Result Negative Negative Latest Ref Rng & Units 05/10/2018 11/09/2022 Vitamin D Vitamin D 25 Hydroxy 31.0 - 80.0 ng/mL 26.0 31.8 Imaging Last XR Hand/Finger - Impression Only XR HAND GENERAL 3V PA/LAT/OBL BILATERAL Exam End: 11/09/2022 3:01 PM (Final result) Impression: IMPRESSION: 1. Mild osteoarthritis of the bilateral hands. 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: MAGDA Transcribe Date/Time: Nov 10 2022 8:57A ... Last MRI Hand - Impression Only No resulted procedures found. Last XR Chest - Impression Only No resulted procedures found. Last XR Cervical Spine - Impression Only No resulted procedures found. Health Maintenance Current Immunizations Never Reviewed Name Date COVID-19 vaccine, season ([employer]) 07/04/2023 COVID-19 vaccine, bivalent (MODERNA) 08/10/2022 COVID-19 [...] repeat DEXA for monitoring bone density, if shehas significant worsening, would recommend starting bone strengthening [...] OZEMPIC,, 2 MG/1.5 ML, PEN (IRB 20-853) methotrexate 2.5 mg tablet folic acid 1 mg tablet Return in about 4 months (around 03/16/2024). I spent a total of 30 minutes on the date of the service which included preparing to see the patient, borv-cn-bznj patient care, completing clinical documentation, obtaining and/or reviewing separately obtained history, performing a medically appropriate examination, counseling and educating the pat ient/family/caregiver, and ordering medications, tests, or procedures. Harish Paula MD, [facility] Rheumatology documented in this [facility] Miscellaneous Notes* Telephone Encounter - Laura Patterson RN - 10/06/2023 11:29 AM EDT Scan on 10/06/2023 10:54 AM by Provider, Chet, SYDNEE: XR DEXA axial skeleton * Telephone Encounter - Pierce Cohen - 10/06/2023 11:11 AM EDT Received XR DEXA axial skeleton results via fax from [address] Exam date 09/25/23 Scanned under imaging Pt has aleah 11/15/23 /12:30pm documented in this [facility]02-23-2024 Evaluation + Plan note Future Scheduled Tests Laboratory* HgbA1c 09/15/23 * HCV Antibody RFX to Quant PCR 09/15/23 [facility]10-18-2023 History of Present illness Narrative* Mercedes Peña RT(R) - 05/10/2023 1:35 PM EDT Radiology Service Progress Note PATIENT NAME: Yamile Siddiqui DATE OF SERVICE: May 10, 2023 TIME: 1:35 PM PATIENT IDENTITY VERIFICATION COMPLETED USING TWO (2) IDENTIFIERS: Name and Date of confirmedby patient verbally. FALL SCREENING: Has the patient [...] 10, 2023 1:35 PM documented in this [facility]Mer[facility] History of Present illness Narrative* Harish Paula MD - 05/10/2023 12:34 PM EDT Images from the original note were not included. Rheumatology Outpatient Clinic Date of Service: 05/10/2023 Patient: Yamile Siddiqui Medical Record: [id number] Primary Care Physician: Aleksander Jimenez MD Referring Provider: SELF Last Rheumatology visit: 02/08/2023 (with Harish Paula) Chief complaint: Follow Up, Pain (Ongoing generalized pain.), and Refill Request History of Present Illness Yamile Siddiqui is a 68 year old White female with medical history of rheumatoid arthritis, hyperlipidemia, diabetes mellitus, history of tobaccouse, Histoplasmosis right eye in ( treated), macular degeneration ( blind right eye central vision), presents on 05/10/2023 for an in-person visit for evaluation of Follow Up, Pain (Ongoinggeneralized pain.), and Refill Request. She is currently taking methotrexate sodium, prednisone. Yamile is both RF - 49 (11/09/2022) and CCP - 275 (11/09/2022) positive. HISTORY OF PRESENT ILLNESS History of rheumatoid arthritis She was being followed by local rheumatology in [place], but her daughter wanted her to get a [facility]. Seen by Dr. 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 Patient reports pain over MCPs, PIPs, wrists, [...] for 2 and half weeks she noticed worseningof joint pain in her hands and difficulty [...] Macular degeneration 07/27/2010 Normal coronary arteries 07/2010 [facility] performed for evaluation chest pain, abnormal stress test UTI (urinary tract infection) 07/27/2010 Past Surgical History PAST SURGICAL HISTORY Procedure Laterality Date CARPAL TUNNEL HYSTERECTOMY HX 1992 LIG/TRNSXJ FLP TUBE ABDL/VAG APPR UNI/BI in the 's OVARIAN CYSTECTOMY in the s Allergy ALLERGIES Allergen Reactions Cefuroxime Hives Family [...] or previous infection with Mycobacterium tuberculosis. Infection withM. tuberculosis complex is unlikely. If latent tuberculosis infection is highly suspected, a negative result does not rule out the infection. Specimens from immunocompromised patients and those <5years of age may show false negative results. [...] 1. Mild osteoarthritis of the bilateral hands. 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: MAGDA Transcribe Date/Time: Nov 10 2022 8:57A [...] Full ROM in flexion and extension. Full customer success advocate strength. Synovitis and tenderness over right long [...] had worsening of pain and swelling after holdingmethotrexate for 2-1/2 weeks, has right long PIP synovitis on exam today , resumed MTX 20 mg weeklywith folic acid 2 mg daily last Monday [...] which included preparing to see the patient, quti-sj-lfkc patient care, completing clinical documentation, obtaining and/or reviewing separately obtained history, performing a medically appropriate examination, counseling and educating the pat ient/family/caregiver, and ordering medications, tests, or procedures. Harish Paula MD, [facility] Rheumatology documented in this encounterMer[facility]07-[facility]23 History of Present illness Narrative* Harish Paula MD - 02/08/2023 1:00 PM EDT Images from the original note were not included. Rheumatology Outpatient Clinic Date of Service: 02/08/2023 Patient: Yamile Siddiqui Medical Record: [id number] Primary Care Physician: Aleksander Jimenez MD Referring Provider: SELF Last Rheumatology visit: 11/09/2022 (with Harish Paula) Chief complaint: Follow Up History of Present Illness Yamile Siddiqui is a 67 year old White female with medical history of rheumatoid arthritis, hyperlipidemia, diabetes mellitus, history of tobaccouse, Histoplasmosis right eye in ( treated), macular degeneration ( blind right eye central vision), presents on 02/08/2023 for an in- person visit for evaluation of Follow Up. She is currently taking methotrexate sodium, prednisone. Yamile is both RF - 49 (11/09/2022) and CCP - 275 (11/09/2022) positive. HISTORY OF PRESENT ILLNESS History of rheumatoid arthritis She was being followed by local rheumatology in [place], but her daughter wanted her to get a 2nd opinion at [facility]. Seen by Dr. 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 Patient reports pain over MCPs, PIPs, wrists, [...] or previous infection with Mycobacterium tuberculosis. Infection withM. tuberculosis complex is unlikely. If latent tuberculosis infection is highly suspected, a negative result does not rule out the infection. Specimens from immunocompromised patients and those <5years of age may show false negative results. [...] 1. Mild osteoarthritis of the bilateral hands. 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: MAGDA Transcribe Date/Time: Nov 10 2022 8:57A [...] Full ROM in flexion and extension. Full customer success advocate strength. No synovitis, no tenderness over MCPs, PIPs and DIPs Lower extremities: Knees: Full ROM in flexion and extension. No swelling or effusion. No tenderness to palpation. Ankles: Full ROM in all solis. No swelling or effusion. No tenderness to palpation along the jointline, medial/lateral malleolus, ATFL, PTFL, CFL, or Achilles [...] which included preparing to see the patient, tmwg-[id number]-rsal patient care, completing clinical documentation, obtaining and/or reviewing separately obtained history, performing a medically appropriate examination, counseling and educating the pat ient/family/caregiver, and ordering medications, tests, or procedures. [facility], [facility] documented in this encounterMer[facility]04-19-2023 History of Present illness Narrative* RT Bk(R) - 11/09/2022 2:58 PM EDT Radiology Service Progress Note PATIENT NAME: Yamile Siddiqui DATE OF SERVICE: November 09, 2022 TIME: 2:59 PM PATIENT IDENTITY VERIFICATION COMPLETED USING TWO (2) IDENTIFIERS: Name and Date of confirmedby patient verbally. FALL SCREENING: Has the patient had 2 falls in the last year or 1 fall with injury or currently using an Ambulatory Assistive Device (Walker, Cane, Wheelchair, Crutches, etc.)? No PATIENT GENDER DATA: Female. status: : No status: N/A PATIENT RELEVANT IMPLANT DATA REVIEWED: Not Applicable RADIOLOGY DEPARTMENT: General X-ray: Exam(s) Completed: Lower Extremity X- Ray(s): Foot, Bilateral and Wt. Bearing Upper Extremity X-Ray(s): Hand, bilateral PERIPHERAL IV DATA: Not applicable SIGNED BY: RT Bk(R) November 09, 2022 2:59 PM documented in this encounterMer[facility]04-19-2023 History of Present illness Narrative* Harish Paula MD - 11/09/2022 1:30 PM EDT Images from the original note were not included. Rheumatology Outpatient Clinic Date of Service: 11/09/2022 Patient: Yamile Siddiqui Medical Record: [id number] Primary Care Physician: Aleksander Jimenez MD Referring Provider: SELF Last Rheumatology visit: 06/27/2018 (with Dinorah Pamela) Chief complaint: Consult Self referral requested for an opinion regarding RA. My final recommendations will be communicated back to the requesting physician by way of shared Medical record or letter to requesting physician via US mail. History of Present Illness Yamile Siddiqui is a 67 year old White female with medical history of rheumatoid arthritis, hyperlipidemia, diabetes mellitus, history of tobaccouse, Histoplasmosis right eye in ( treated), macular degeneration ( blind right eye central vision), presents on 11/09/2022 for an in- person visit for evaluation of Consult. She is currentlytaking methotrexate sodium, naproxen, prednisone. Yamile is both RF - 23 (05/10/2018) and CCP - 25 (05/10/2018) positive. HISTORY OF PRESENT ILLNESS History of rheumatoid arthritis She was being followed by local rheumatology in [place], but her daughter wanted her to get a 2nd opinion at [facility]. Seen by Dr. Livingston in 05/2018 Her local rheum added methotrexate which she started after her visit here in 05/2018 She was following with fountain server at [place] however her insurance will know more cover the fountain server in [place] so she came back to [facility]. Patient reports pain over MCPs, PIPs, wrists, [...] Macular degeneration 07/27/2010 Normal coronary arteries 07/2010 [facility] performed for evaluation chest pain, abnormal stress [...] Full ROM in flexion and extension. Full customer success advocate strength. synovitis along the right long MCP, right little PIP, tenderness over MCPs and PIPs Lower extremities: Knees: Full ROM in flexion and extension. No swelling or effusion. No tenderness to palpation. Ankles: Full ROM in all solis. No swelling or effusion. No tenderness to palpation along the jointline, medial/lateral malleolus, ATFL, PTFL, CFL, or Achilles [...] which included preparing to see the patient, cwxa-go-olbr patient care, completing clinical documentation, obtaining and/or reviewing separately obtained history, performing a medically appropriate examination, counseling and educating the pat ient/family/caregiver, and ordering medications, tests, or procedures. Harish Paula MD, [facility] Rheumatology [facility]Pro[facility]* Clinical Note Date No Information [facility] Work Phone: Discharge summary* Clinical Note Date No Information [facility] Work Phone: Evaluation + Plan note Future Appointments Appointment Date:04/10/2023 01:40:00 PM Scheduled Provider:Navjot KAYE, Julee Byers Location:[facility] Appointment Type: Open Diagnostic Tests Pending * CBC w/ Auto Diff 01/09/23 * Comprehensive Metabolic Panel 01/09/23 * Lipid Panel 01/09/23 * TSH With T4fr Reflex 01/09/23 * HgbA1c 01/09/23 * Microalbumin Level Urine 01/09/23 * U Protein/Creat Ratio [facility]09/23 [facility]ments Appointment Date:02/27/2024 02:00:00 PM Scheduled Provider:Julee De Los Santos MD Location:[facility] Appointment Type: Open Appointment Date:09/24/2024 01:00:00 PM Scheduled Provider: Location:[facility] Appointment Type: Medicare Wellness Subsequent Future Scheduled Tests Laboratory* HgbA1c 09/15/23 * HCV Antibody RFX to Quant PCR 09/15/23 [facility] evaluation + Plan note Future Appointments Appointment Date:09/24/2024 01:00:00 PM Scheduled Provider: Location:[facility] Appointment Type: Medicare Wellness Subsequent Appointment Date:02/13/2025 01:00:00 PM Scheduled Provider:Julee De Los Santos MD Location:[facility] Appointment Type: Open Future Scheduled Tests Laboratory* HgbA1c 09/15/23 * HCV Antibody RFX to Quant PCR 09/15/23 [facility] evaluation noteNo assessment information available [facility] Work Phone: evaluation note* Diagnosis Rheumatoid arthritis involving multiple sites with positive rheumatoid factor (HCC)- Primary [facility]* Diagnosis Rheumatoid arthritis involving multiple sites with positive rheumatoid factor (HCC)- Primary Encounter for long-term (current) use of medications Encounter for long-term (current) use of other medications [facility]* Diagnosis Rheumatoid arthritis involving multiple sites with positive rheumatoid factor (HCC)- Primary Encounter for long-term (current) use of medications Encounter for long-term (current) use of other medications Thoracic back pain, unspecified back pain laterality, unspecified chronicity [facility] Thoracic back pain, unspecified back pain laterality, unspecified chronicity documented [facility] this encounter [facility]* Diagnosis Rheumatoid arthritis involving multiple sites with positive rheumatoid factor (HCC)- Primary Osteopenia of multiple sites Encounter for long-term (current) use of medications Encounter for long-term (current) use of other medications Change in voice Other voice and resonance disorders Toenail fungus Dermatophytosis of nail [facility]* Diagnosis Change in voice- Primary Other voice and resonance disorders Hoarseness Dysphonia Environmental and seasonal allergies PND (post-nasal drip) Postnasal drip [facility] Diagnosis Rheumatoid arthritis involving multiple sites with positive rheumatoid factor (HCC)- Primary Encounter for long-term (current) use of medications Encounter for long-term (current) use of other medications [facility]* Diagnosis Rheumatoid arthritis involving multiple sites with positive rheumatoid factor (HCC) [facility]* Diagnosis PND (post-nasal drip)- Primary Postnasal drip Environmental and seasonal allergies Hoarseness Dysphonia documented [facility]* Diagnosis Rheumatoid arthritis involving multiple sites with positive rheumatoid factor (HCC)- Primary Encounter for long-term (current) use of medications Encounter for long-term (current) use of other medications [facility]* Diagnosis Onychomycosis- Primary Dermatophytosis of nail Type II or unspecified type diabetes mellitus with neurological manifestations, not stated as uncontrolled(250.60) (CMS/HCC) Type II or unspecified type diabetes mellitus with neurological manifestations, not stated as uncontrolled Hammer toes of both feet Acquired keratoderma [facility]* Type Assessment Date No Information [facility] Work Phone: Evaluation note* Diagnosis Rheumatoid arthritis involving multiple sites with positive rheumatoid factor (HCC)- Primary Encounter for long-term (current) use of medications Encounter for long-term (current) use of other medications Thoracic back pain, unspecified back pain laterality, unspecified chronicity Arthritis Arthropathy, unspecified, site unspecified [facility]* Diagnosis Rheumatoid arthritis involving multiple sites with positive rheumatoid factor (HCC)- Primary Encounter for long-term (current) use of medications Encounter for long-term (current) use of other medications Osteopenia of multiple sites [facility]* Clinical Note Date No Information [facility] Work Phone: Hospital course Narrative No data available for this section [facility] Additional Instructions POST CATARACT SURGERY [...] worsening of your eyesight. Please call your logistics team leader during normal business hours. If after business hours call Dr. Balwinder Hankins at his cell [phone] or his office [phone].[facility] Work Phone: Hospital Discharge instructions No data available for this section [facility] No data available for this section [facility]* Clinical Note Date No Information [facility] Work Phone: [facility] [place] for referral (narrative)* Diagnostic Procedure Only (Routine) - Closed Specialty Diagnoses / Procedures Referred By Contac t Referred To Contact XR IMAGING Diagnoses Rheumatoid arthritis involving multiple sites with positive rheumatoid factor (HCC) Procedures XR HAND GENERAL 3V PA/LAT/OBL BILATERAL RADEX HAND MINIMUM 3 VIEWS Harish Paula MD [address] [place] [address] Xr Imaging Referral ID Status Reason Start Date Expiration Date V isits Requested Visits Authorized [id number] Closed Auto-Generate d Referral 11/09/2022 12/09/2023 1 1 * Diagnostic Procedure Only (Routine) - Closed Specialty Diagnoses / Procedures Referred By Contac t Referred To Contact XR IMAGING Diagnoses Rheumatoid arthritis involving multiple sites with positive rheumatoid factor (HCC) Procedures XR FOOT GENERAL 3V AP/LAT/OBL BILATERAL RADEX FOOT COMPLETE MINIMUM 3 VIEWS Harish Paula MD [address] [place] [address] Xr Imaging Referral ID Status Reason Start Date Expiration Date V isits Requested Visits Authorized [id number] Closed Auto-Generate d Referral 11/09/2022 12/09/2023 1 1 [facility] for referral (narrative)* Diagnostic Procedure Only (Routine) - Closed Specialty Diagnoses / Procedures Referred By Contac t Referred To Contact XR IMAGING Diagnoses Thoracic back pain, unspecified back pain laterality, unspecified chronicity Procedures XR THORACIC GENERAL 3V AP/LAT/SWIMMERS RADEX SPINE THORACIC 3 VIEWS Harish Paula MD [address] [place] [address] Xr Imaging [place] [address] Referral ID Status Reason Start Date Expiration Date V isits Requested Visits Authorized [id number] Closed Auto-Generate d Referral 05/10/2023 06/08/2024 1 1 * Physical Therapy (Routine) - Pending Review Specialty Diagnoses / Procedures Referred By Noé sousa Referred To Contact [facility] Diagnoses Rheumatoid arthritis involving multiple sites with positive rheumatoid factor (HCC) Encounter for long-term (current) use of medications Procedures CONSULT TO PHYSICAL THERAPY PHYSICAL THERAPY EVALUATION HIGH COMPLEX 45 MINS Harish Paula MD [address] [place] [address] [facility] [place] [address] [place] [address] Referral ID Status Reason Start Date Expiration Date Visits Requested Visits Authorized [id number] Pending Review Auto-Generat ed Referral 05/09/2024 1 1 [facility] for referral (narrative)* Diagnostic Procedure Only (Routine) - Closed Specialty Diagnoses / Procedures Referred By Noé sousa Referred To Contact XR IMAGING Diagnoses Thoracic back pain, unspecified back pain laterality, unspecified chronicity Procedures XR THORACIC GENERAL 3V AP/LAT/SWIMMERS RADEX SPINE THORACIC 3 VIEWS Harish Paula MD [address] [place] [address] Xr Imaging [id number] Referral ID Status Reason Start Date Expiration Date V isits Requested Visits Authorized [id number] Closed Auto-Generate d Referral 05/10/2023 06/08/2024 1 1 [facility] for referral (narrative)* Diagnostic Procedure Only (Routine) - Closed Specialty Diagnoses / Procedures Referred By Noé sousa Referred To Contact XR IMAGING Diagnoses Rheumatoid arthritis involving multiple sites with positive rheumatoid factor (HCC) Procedures XR HAND GENERAL 3V PA/LAT/OBL BILATERAL RADEX HAND MINIMUM 3 VIEWS Harish Paula MD [address] [place] [id number] [place] [address] Referral ID Status Reason Start Date Expiration Date V isits Requested Visits Authorized [id number] Closed Auto-Generate d Referral 11/09/2022 12/09/2023 1 1 * Diagnostic Procedure Only (Routine) - Closed Specialty Diagnoses / Procedures Referred By Contac t Referred To Contact XR IMAGING Diagnoses Rheumatoid arthritis involving multiple sites with positive rheumatoid factor (HCC) Procedures XR FOOT GENERAL 3V AP/LAT/OBL BILATERAL RADEX FOOT COMPLETE MINIMUM 3 VIEWS Harish Paula MD [address] [place] [address] Xr Imaging [place] [address] Referral ID Status Reason Start Date Expiration Date V isits Requested Visits Authorized [id number] Closed Auto-Generate d Referral 11/09/2022 12/09/2023 1 1 [facility] for referral (narrative)* Reason For Referral No Information [facility] Work Phone: Reason for referral (narrative)No reason for referral [facility] Work Phone: Reason for visit Narrative* Diagnostic Procedure Only (Routine) - Closed Specialty Diagnoses / Procedures Referred By Contac t Referred To Contact XR IMAGING Diagnoses Thoracic back pain, unspecified back pain laterality, unspecified chronicity Procedures XR THORACIC GENERAL 3V AP/LAT/SWIMMERS RADEX SPINE THORACIC 3 VIEWS Harish Paula MD [address] [place] [address] Xr Imaging [place] [address] Referral ID Status Reason Start Date Expiration Date V isits Requested Visits Authorized [id number] Closed Auto-Generate d Referral 05/10/2023 06/08/2024 1 1 [facility] for visit Narrative* Diagnostic Procedure Only (Routine) - Closed Specialty Diagnoses / Procedures Referred By Contac t Referred To Contact XR IMAGING Diagnoses Rheumatoid arthritis involving multiple sites with positive rheumatoid factor (HCC) Procedures XR HAND GENERAL 3V PA/LAT/OBL BILATERAL RADEX HAND MINIMUM 3 VIEWS Harish Paula MD [address] [place] [address] [place] [address] Referral ID Status Reason Start Date Expiration Date V isits Requested Visits Authorized [id number] Closed Auto-Generate d Referral 11/09/2022 12/09/2023 1 1 [facility] Chief Complaint and Reason for Visit Chief Complaint Left Cataract Chief Complaint Left Cataract Left Cataract Chief Complaint Admit Date Unknown February 13, 2025 11:4 2am Family History No Family History Records Found Relationship Condition Age at Onset Recorded Date/T charles father Malignant neoplasm of liver Unknown Not Specified Diabetes mellitus Unknown Malignant neoplasm of urinary bladder Unk nown brother History of coronary artery bypass surgery Unknown Diabetes mellitus Unknown Family Member Type Diagnosis Age At Onset Problem (finding) Family history of Heart Disease Problem (finding) Family history of HBP Problem (finding) Family history of Cance r Relationship Condition Age at Onset Recorded Date/T charles father Malignant neoplasm of liver Unknown mother Diabetes mellitus Unknown Malignant neoplasm of urinary bladder Unk nown brother History of coronary artery bypass surgery Unknown Diabetes mellitus Unknown daughter Diabetes mellitus Unknown father Hypertension Unknown Malignant neoplasm Unknown Heart disease Unknown Unknown Family history of liver cancer Unknown mother Unknown Advance Directives No Advanced Directives Records Found Advance Directive Response Recorded Date/ Time Advance Directives No January 08 11:24am Directive Yes / No Effective Date File Name No Information Advance Directive Response Recorded Date/ Time Advance Directives No January 08 12:24pm Summary Purpose Reason for Referral Specialty Diagnoses / Procedures Referred By Noé sousa Referred To Contact Ent - Otolaryngology Diagnoses Change in voice Procedures CONSULT TO ENT OFFICE/OUTPATIENT [facility] 60 MINUTES Harish Paula MD [address] [place] [id number] Referral ID Status Reason Start Date Expiration Date Visits Requested Visits Authorized [id number] Authorized PCP Requested Referral 11/15/2023 11/14/2024 1 1 Specialty Diagnoses / Procedures Referred By Noé sousa Referred To Contact Podiatry Diagnoses Toenail fungus Procedures CONSULT TO PODIATRY OFFICE/OUTPATIENT [facility] 60 MINUTES Harish Paula MD [address] [place] [address] Referral ID Status Reason Start Date Expiration Date Visits Requested Visits Authorized [id number] Authorized PCP Requested Referral 11/15/2023 11/14/2024 1 1 Additional Source Comments Care Teams (unrecognized sec tion and content) Team Status: Inactive Member Role Status Dates Aleksander Jimenez MD Primary Care Provider Active Balwinder Hankins MD Attending Provider Active Team Status: Active Member Role Status Dates Aleksander Jimenez MD Primary Care Provider Active 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 Start Date End Date Aleksander Jimenez MD [address] [place] [id number] PCP - General Family Medicine 07/27/10 Alida Bernardo MD [address] [place], [place] [id number] Primary Staff Physician Cardiology 10/09/18 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 Start Date End Date Aleksander Jimenez MD [address] [place] [id number] PCP - General Family Medicine 07/27/10 Alida Bernardo MD [address] [place] [address] Primary Staff Physician Cardiology 10/09/18 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 Start Date End Date Aleksander Jimenez MD [address] [place] [id number] PCP - General Family Medicine 07/27/10 Alida Bernardo MD [address] [place], [place] [id number] Primary Staff Physician Cardiology 10/09/18 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 Start Date End Date Aleksander Jimenez MD [address] [place] [id number] PCP - General Family Medicine 07/27/10 Alida Bernardo MD [address] [place] [address] Primary Staff Physician Cardiology 10/09/18 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 Start Date End Date Aleksander Jimenez MD [address] [place] [address] PCP - General Family Medicine 07/27/10 Alida Bernardo MD [address] [place], [place] [id number] Primary Staff Physician Cardiology 10/09/18 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 Start Date End Date Aleksander Jimenez MD [address] [place] [address] PCP - General Family Medicine 07/27/10 Alida Bernardo MD [address] [place], [place] [id number] Primary Staff Physician Cardiology 10/09/18 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 Start Date End Date Julee De Los Santos MD [address] [place] [address] PCP - General Family Medicine 12/22/22 Alida Bernardo MD [address] [place] [address] Primary Staff Physician Cardiology 10/09/18 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 Start Date End Date Julee De Los Santos MD [address] [place] [address] PCP - General Family Medicine 12/22/22 Alida Bernardo MD [address] [place] [address] Primary Staff Physician Cardiology 10/09/18 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 Start Date End Date Julee De Los Santos MD [address] [place], [place] [phone] PCP - General Family Medicine 12/22/22 Alida Bernardo MD [address] [place] [address] Primary Staff Physician Cardiology 10/09/18 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 Start Date End Date Julee De Los Santos MD [address] [place] [id number] PCP - General Family Medicine 12/22/22 Alida Bernardo MD [address] [place] [address] Primary Staff Physician Cardiology 10/09/18 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 Start Date End Date Aleksander Jimenez MD [address] [place] [address] PCP - General Family Medicine 07/27/10 12/21/22 Alida Bernardo MD [address] [place] [address] Primary Staff Physician Cardiology 10/09/18 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 Start Date End Date Julee De Los Santos MD [address] [place] [address] PCP - General Family Medicine 12/22/22 Alida Bernardo MD [address] [place] [address] Primary Staff Physician Cardiology 10/09/18 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 Start Date End Date Julee De Los Santos MD [address] [place] [address] PCP - General Family Medicine 01/08/24 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 Start Date End Date Julee De Los Santos MD [address] [place] [facility] [address] PCP - General Family Medicine 01/08/24 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 Start Date End Date Julee De Los Santos MD [address] [facility] [place] [address] PCP - General Family Medicine 01/08/24 Name Effective Dates (start - stop) Status Members No Information 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 Start Date End Date Julee De Los Santos MD [address] [place] [address] PCP - General Family Medicine 12/22/22 Alida Bernardo MD [address] [place] [address] Primary Staff Physician Cardiology 10/09/18 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 Start Date End Date Julee De Los Santos MD [address] [facility], [place] [id number] PCP - General Family Medicine 12/22/22 Alida Bernardo MD [address] [place] [address] Primary Staff Physician Cardiology 10/09/18 Team Status: Inactive Member Role Status Dates Zurdo Mckeon MD Attending Provider Active Start : February 13, 2025 End: February 13, 2025 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 Start Date End Date Julee De Los Santos MD [address] [place] [address] PCP - General Family Medicine 12/22/22 Alida Bernardo MD [address] [place] [address] Primary Staff Physician Cardiology 10/09/18 Goals (unrecognized section and content) Health Concern Goal Type Priority Status No Information INFORMATION SOURCE (unrecogn ized section and content) DATE CREATED AUTHOR 10/02/2022 [facility] DATE CREATED AUTHOR AUTHOR'S ORGANIZ ATION 02/23/2024 [facility] DATE CREATED AUTHOR AUTHOR'S ORGANIZ ATION 03/13/2024 [facility] DATE CREATED AUTHOR AUTHOR'S ORGANIZ ATION 09/26/2024 [facility] DATE CREATED AUTHOR AUTHOR'S ORGANIZ ATION 02/16/2025 [facility] DATE CREATED AUTHOR AUTHOR'S ORGANIZ ATION 02/21/2025 [facility] DATE CREATED AUTHOR AUTHOR'S ORGANIZ ATION 02/22/2025 [facility] DATE CREATED AUTHOR AUTHOR'S ORGANIZ ATION 02/23/2025 [facility] DATE CREATED AUTHOR AUTHOR'S ORGANIZ ATION 02/26/2025 [facility] DATE CREATED AUTHOR AUTHOR'S ORGANIZ ATION 03/18/2025 [facility] DATE CREATED AUTHOR AUTHOR'S ORGANIZ ATION 03/20/2025 [facility] Source Comments (unrecognize d section and content) In the event this informatio n is protected by the Federal Confidentiality of Alcohol and Drug Abuse Patient Records regulations: The Federal rules restrict any use of the information to criminally investigate or prosecute any alcohol or drug abuse patient.[facility] the event this information is protected by the Federal Confidentiality of Alcohol and Drug Abuse Patient Records regulations: The Federal rules restrict any use of the information to criminally investigate or prosecute any alcohol or drug abuse patient.[facility] the event this information is protected by the Federal Confidentiality of Alcohol and Drug Abuse Patient Records regulations: The Federal rules restrict any use of the information to criminally investigate or prosecute any alcohol or drug abuse patient.[facility] the event this information is protected by the Federal Confidentiality of Alcohol and Drug Abuse Patient Records regulations: The Federal rules restrict any use of the information to criminally investigate or prosecute any alcohol or drug abuse patient.[facility] the event this information is protected by the Federal Confidentiality of Alcohol and Drug Abuse Patient Records regulations: The Federal rules restrict any use of the information to criminally investigate or prosecute any alcohol or drug abuse patient.[facility] the event this information is protected by the Federal Confidentiality of Alcohol and Drug Abuse Patient Records regulations: The Federal rules restrict any use of the information to criminally investigate or prosecute any alcohol or drug abuse patient.[facility] the event this information is protected by the Federal Confidentiality of Alcohol and Drug Abuse Patient Records regulations: The Federal rules restrict any use of the information to criminally investigate or prosecute any alcohol or drug abuse patient.[facility] the event this information is protected by the Federal Confidentiality of Alcohol and Drug Abuse Patient Records regulations: The Federal rules restrict any use of the information to criminally investigate or prosecute any alcohol or drug abuse patient.[facility] the event this information is protected by the Federal Confidentiality of Alcohol and Drug Abuse Patient Records regulations: The Federal rules restrict any use of the information to criminally investigate or prosecute any alcohol or drug abuse patient.[facility] the event this information is protected by the Federal Confidentiality of Alcohol and Drug Abuse Patient Records regulations: The Federal rules restrict any use of the information to criminally investigate or prosecute any alcohol or drug abuse patient.[facility] the event this information is protected by the Federal Confidentiality of Alcohol and Drug Abuse Patient Records regulations: The Federal rules restrict any use of the information to criminally investigate or prosecute any alcohol or drug abuse patient.[facility] Hospital[facility] the event this information is protected by the Federal Confidentiality of Alcohol and Drug Abuse Patient Records regulations: The Federal rules restrict any use of the information to criminally investigate or prosecute any alcohol or drug abuse patient.[facility] Hospital[facility] the event this information is protected by the Federal Confidentiality of Alcohol and Drug Abuse Patient Records regulations: The Federal rules restrict any use of the information to criminally investigate or prosecute any alcohol or drug abuse patient.[facility] Hospital[facility] the event this information is protected by the Federal Confidentiality of Alcohol and Drug Abuse Patient Records regulations: The Federal rules restrict any use of the information to criminally investigate or prosecute any alcohol or drug abuse patient.[facility] Hospital[facility] the event this information is protected by the Federal Confidentiality of Alcohol and Drug Abuse Patient Records regulations: The Federal rules restrict any use of the information to criminally investigate or prosecute any alcohol or drug abuse patient.[facility] Hospital[facility] the event this information is protected by the Federal Confidentiality of Alcohol and Drug Abuse Patient Records regulations: The Federal rules restrict any use of the information to criminally investigate or prosecute any alcohol or drug abuse patient.[facility] Hospital[facility] the event this information is protected by the Federal Confidentiality of Alcohol and Drug Abuse Patient Records regulations: The Federal rules restrict any use of the information to criminally investigate or prosecute any alcohol or drug abuse patient.[facility] Reason for Visit (unrecogniz ed section and content) Reason Comments Consult Reason Comments Radiology XR Reason Comments Follow Up Reason Comments Follow Up Pain Ongoing generalized pain. Refill Request Reason Comments Results Reason Comments Pain intermittent shootin g pain to right thumb X 2 monthslower back pain radiates down right leg-getting worse-10/10 intermittentlypain to middle [id number] 10/10 Reason Comments Consult Change in voice x 6 month Specialty Diagnoses / Procedures Referred By Noé sousa Referred To Contact Ent - Otolaryngology Diagnoses Change in voice Procedures CONSULT TO ENT OFFICE/OUTPATIENT [facility] 60 MINUTES Harish Paula MD [address] [place] [address] Referral ID Status Reason Start Date Expiration Date V isits Requested Visits Authorized [id number] Closed PCP Requested Referral 11/15/2023 11/14/2024 1 1 Reason Comments Follow Up Left sided groin trav n x 1 day Reason Comments Diabetic Shoes Pt here today for di spensing of extra depth diabetic shoes with x2 pairs HM inserts. After walking with them she states they are very comfortable. All necessary paperwork has been signed. She is aware of the break-in period and will RTO 3 weeks for shoe check if needed, BS: 110 A1C:5.8 Reason Onset Date Comments Advice Only 03/22/2024 Keeping Shoes - Cancel Check Appt Reason Comments Refill Request Reason Comments F/U 3 Month RA continues to have stiffness lasting 1-2 hrs and swelling in hands , refills needed Reason Comments Follow Up No questions or conc erns. FOR RECORDS PERTAINING TO PATIENTS WHO ARE [...] BE BASED ON THE PRIMARY CLINICAL RECORDS. [facility] [employer] [facility]. provides no warranty or guarantee of the accuracy or completeness of information in this document.
== END 2025-03-21 12:38 | disposition home or self-care (01) ==
LOC: CT 12:38
PROVIDERS: PCP Nurse Practitioner; Visit Provider Nurse Practitioner
DX: R26.81 Unsteadiness on feet (principal); H53.9 Unspecified visual disturbance; E11.9 Type 2 diabetes mellitus without complications; E55.9 Vitamin D deficiency, unspecified; E78.00 Pure hypercholesterolemia, unspecified; R51.9 Headache, unspecified
CPT/HCPCS: 70450